=== PATIENT | male | born 1940 | race Hispanic/Latino ===

== ENCOUNTER 2019-12-26 13:14 | Inpatient (IN) | payer MEDICARE ==
[~2019-12-26] VITALS: Ht 170.2 cm; Wt 60.0 kg
[2019-12-26] MEDS ORDERED: SODIUM CHLORIDE 0.9% 1000ML 1,000 ML IV STA (13:30)
[2019-12-26 14:03] LABS: BASOPHILS # (AUTO) 0.1 (0.0-0.1); BASOPHILS % 0.4 % (0.0-1.0); EOSINOPHILS % 0.1 % (0.0-6.0); HEMATOCRIT 22.1 % (38.2-49.6); LYMPHOCYTES # (AUTO) 1.5 (1.0-3.2); LYMPHOCYTES % 7.2 % (18.0-39.1); MEAN CORPUSCULAR HEMOGLOBIN 28.3 pg (28-32); MEAN CORPUSCULAR HGB CONC 30.3 g/dL (31-35); MEAN CORPUSCULAR VOLUME 93.2 fL (81-99); MONOCYTES # (AUTO) 0.9 (0.2-0.8); MONOCYTES % 4.3 % (4.4-11.3); NEUTROPHILS # (AUTO) 17.6 (2.1-6.9); NEUTROPHILS % 86.9 % (38.7-80.0); PLATELET COUNT 312 x10e3/uL (140-360); RED BLOOD COUNT 2.37 x10e6/uL (4.3-5.7); RED CELL DISTRIBUTION WIDTH 14.8 % (11.7-14.4)
[2019-12-26 14:18] LABS: INR 1.12
[2019-12-26 14:19] LABS: PARTIAL THROMBOPLASTIN TIME 39.4 seconds (23.8-35.5)
[2019-12-26 14:23] LABS: HEMOGLOBIN 6.7 g/dL (14.0-18.0)
[2019-12-26 14:24] LABS: BILIRUBIN,URINE NEGATIVE (NEGATIVE); CLARITY,URINE SL CLOUDY (CLEAR); COLOR,URINE YELLOW (YELLOW); KETONES,URINE NEGATIVE (NEGATIVE); LEUKOCYTE ESTERASE ,URINE MODERATE (NEGATIVE); NITRITE,URINE NEGATIVE (NEGATIVE); PROTEIN,URINE DIPSTICK 1+ (NEGATIVE); URINE UROBILINOGEN 0.2 mg/dL (0.2 - 1)
[2019-12-26 14:27] LABS: ALBUMIN 3.3 g/dL (3.5-5.0); ALBUMIN/GLOBULIN RATIO 0.9 (0.8-2.0); ANION GAP 18.4 mmol/L (8-16); CALCIUM 8.5 mg/dL (8.4-10.2); CREATININE, SERUM 1.47 mg/dL (0.72-1.25); MAGNESIUM 1.7 MG/DL (1.3-2.1); POTASSIUM 4.4 mmol/L (3.5-5.1)
[2019-12-26 14:33] LABS: CREATINE KINASE MB 0.4 ng/mL (0-5.0)
--- NOTE | 2019-12-26 14:34 | Diagnostic Imaging Report ---
TECHNIQUE: Frontal view of the chest. INDICATION: ^AMS ^[id number] ^[id number] COMPARISON: None DISCUSSION: Limited evaluation due to portable technique. Lines and hardware: Midline sternotomy changes are noted. Overlying EKG leads are noted. Heart and mediastinum: Cardiomediastinal silhouette and pulmonary vascularity are within normal limits. Lungs and pleura: Linear opacities are noted at the left lung base suggestive of atelectasis. Negative for focal lobar consolidation. Negative for large effusion or pneumothorax. Soft tissues and bones: No acute abnormality. Postsurgical changes from right rotator cuff tear repair are noted. IMPRESSION: Linear opacities at the left lung base probably relate to atelectasis. Developing infection/consolidation considered less likely. Otherwise lungs are grossly clear. Signed by: Sam Harrison MD on 12/26/2019 2:30 PM
[2019-12-26 14:35] LABS: BACTERIA,URINE MANY /HPF; EPITHELIAL CELLS,URINE FEW /LPF; RBC,URINE 0-5 /HPF (0-5); YEAST,URINE MODERATE
[2019-12-26 14:41] LABS: B-TYPE NATRIURETIC PEPTIDE2 60.8 pg/mL (0-100)
--- OUTSIDE RECORDS SUMMARY | 2019-12-26 14:45 | XMS REPORT | Continuity of Care Document ---
Author Author [facility] Organization [facility] Address [address] [place] [address] Phone Unavailable Care Team Providers Care Citrus Peeler Name Role Phone MADDIE Devante LIOR Attphys Unavailable Payers Payer Name Policy Type Policy Number Effective Date Expiration Date S ource Problems This patient has no known problems. Allergies, Adverse Reactions, Alerts Allergy Name Allergy Type Status Severity Reaction(s) Onset Date Inacti ve Date Treating Clinician Comments Source morphine DA Active U 2019-11-14 00:00:00 [facility] morphine DA Active U 2019-05-23 00:00:00 [facility] morphine DA Active U 2019-03-03 00:00:00 [facility] morphine DA Active U 2018-12-06 00:00:00 [facility] morphine DA Active U 2018-07-22 00:00:00 [facility] No Known Allergies DA Active U 2018-06-22 00:00:00 [facility] Medications This patient has no known medications. Procedures This patient has no known procedures. Results Test Description Test Time Test Comments Results Result Comments Source CHEST SINGLE (PORTABLE) 2019-12-26 14:29:00 [facility] [address] [place], [place] [address] Patient Name: XOCHILT EPSTEIN MR #: [id number] : 1940 Age/Sex: 79/M Req #: [id number] [facility] Physician: Ordered by: LIOR PERKINS MD Report #: [id number] Location: ER Room/Bed: Procedure: [id number] DX/CHEST SINGLE (PORTABLE) Exam Date: 12/26/19 Exam Time: 1400 REPORT STATUS: Signed TECHNIQUE: Frontal view of the chest. INDICATION: AMS [id number] COMPARISON: None DISCUSSION: Limited evaluation due to portable technique. Lines and hardware: Midline sternotomy changes are noted. Overlying EKG leads are noted. Heart and mediastinum: Cardiomediastinal silhouette and pulmonary vascularity are within normal limits. Lungs and pleura: Linear opacities are noted at the left lung base suggestive of atelectasis. Negative for focal lobar consolidation. Negative for large effusion or pneumothorax. Soft tissues and bones: No acute abnormality. Postsurgical changes from right rotator cuff tear repair are noted. IMPRESSION: Linear opacities at the left lung base probably relate to atelectasis. Developing infection/consolidation considered less likely. Otherwise lungs are grossly clear. Signed by: Sam Gustafson MD on 12/26/2019 2:30 PM Dictated By: SAM GUSTAFSON MD 143 Transcribed By: ANTONIO on 12/26/19 1430 COPY TO: LIOR PERKINS MD GLUBED 2019-11-20 20:37:00 Test Item GLUBED (test code = GLUBED) 251 mg/dL 74-106 H Performed by certified photogravure press operator at [facility] [id number] 16:52:00* Test Item Value Reference Range Interpretation Comments GLUBED (test code = GLUBED) 218 mg/dL 74-106 H Performed by certified photogravure press operator at [facility] [id number] 12:39:00* Test Item Value Reference Range Interpretation Comments GLUBED (test code = GLUBED) 174 mg/dL 74-106 H Performed by certified photogravure press operator at [facility] [id number] 10:03:00* Test Item Value Reference Range Interpretation Comments GLUBED (test code = GLUBED) 146 mg/dL 74-106 H Performed by certified photogravure press operator at [facility] [id number] 20:58:00* Test Item Value Reference Range Interpretation Comments GLUBED (test code = GLUBED) 168 mg/dL 74-106 H Performed by certified photogravure press operator at [facility] [id number] 17:08:00* Test Item Value Reference Range Interpretation Comments GLUBED (test code = GLUBED) 162 mg/dL 74-106 H Performed by certified photogravure press operator at [facility] [id number] 12:23:00* Test Item Value Reference Range Interpretation Comments GLUBED (test code = GLUBED) 192 mg/dL 74-106 H Performed by certified photogravure press operator at [facility] [id number] 08:39:00* Test Item Value Reference Range Interpretation Comments GLUBED (test code = GLUBED) 139 mg/dL 74-106 H Performed by certified photogravure press operator at [facility] [id number] 21:12:00* Test Item Value Reference Range Interpretation Comments GLUBED (test code = GLUBED) 256 mg/dL 74-106 H Performed by certified photogravure press operator at [facility] CHST [id number] 19:31:00 Name: XOCHILT EPSTEIN [facility] : 1940 Age/S: 78 / M [address] [facility] Unit #: [id number] Loc: [place], [place] [address] Phys: Carrie Ballard MD Acct: [id number] Dis Date: Status: ADM IN PHONE #: [phone] Exam Date: 11/18/2019 1700 FAX #: [phone] Reason: right effusion EXAMS: CPT CODE: [id number] CHST W/MEDIASTINUM 60165 EXAM: Ultrasound of the chest; INFORMATION: Covid positive; pleural effusion? IMPRESSION: No evidence of pleural effusions. Location code: [facility] at 193 Reported and signed by: Guille Liao M.D. CC: Miquel Jeffers MD; Faustino Ramirez; Carrie Ballard MD Technologist: JENNIFER GILL RT(R),RDAL [facility] [place] Date/Time: 11/18/2019 (1930) [email or web address] Orig Print D/T: S: 11/19/2019 (1316) Probe: PAGE 1 Signed Report [id number] 15:59:00* Test Item Value Reference Range Interpretation Comments GLUBED (test code = GLUBED) 232 mg/dL 74-106 H Performed by certified photogravure press operator at [facility] [id number] 12:11:00* Test Item Value Reference Range Interpretation Comments GLUBED (test code = GLUBED) 176 mg/dL 74-106 H Performed by certified photogravure press operator at [facility] [id number] 08:18:00* Test Item Value Reference Range Interpretation Comments GLUBED (test code = GLUBED) 142 mg/dL 74-106 H Performed by certified photogravure press operator at [facility] - XR CHEST 1 [id number] 08:15:00 FAX: Miquel Jeffers MD [phone] [place]: St: ADM FAX: Faustino Phelan DO [phone] FAX: Carrie Adams MD [phone] Name: XOCHILT EPSTEIN [facility] : 1940 Age/S: 78/M [address] [facility] Unit #: [id number] Loc: [address] [place] [address] Phys: Carrie Ballard MD Acct: [id number] Dis Date: Status: ADM IN ONE #: [phone] Exam Date: 11/18/2019 0758 FAX #: [phone] Reason: COVID EXAMS: CPT CODE: [id number] XR CHEST 1 V [id number] REASON FOR EXAM: COVID Exam Order Date: 11/18/2019 8:00 AM Ordering M.D.: Carrie Ballard MD PROCEDURE: - XR CHEST 1 V COMPARISON: Chest x-ray November 14, 2019 FINDINGS: Op acities in the mid to lower lung zones bilaterally appear similar to the p revious examination and may represent any combination of atelectatic mccord es and pneumonia. Additionally a layering right sided pleural effusion can not be excluded. Cardiac mediastinal silhouette is normal in size. Sternotomy wires are unchanged in position. Prior cholecystectomy. IMPRESSION: No change from prior exam. Location: [facility] at 0815 Reported and signed by: Anupam Beltran MD CC: Miquel Jeffers MD; Faustino Ramirez; Carrie Ballard MD Technologist: WILDA WILLIAM JR RT(R) Trnscrd Date/Time/By: (814) : By: [email or web address] [facility] Print D/T: S: 11/18/2019 (927) PAGE 1 Signed Report CBC W/MANUAL [id number] 07:23:00* Test Item Value Reference Range Interpretation Comments WHITE BLOOD CELL (test code = WBC) 9.4 K/mm3 4.5-12.5 N RED BLOOD CELL (test code = RBC) 2.99 mill/mm3 4.0-5.8 L HEMOGLOBIN (test code = HGB) 8.7 gram/dL 13.0-17.5 L HEMATOCRIT (test code = HCT) 27.5 % 42.0-52.0 L MEAN CELL VOLUME (test code = MCV) 92.0 fL 80-98 N MEAN CELL HGB (test code = MCH) 29.1 picogram 27.0-33.0 N MEAN CELL HGB CONCETRATION (test code = MCHC) 31.6 gram/dL 33.0-36. 0 L RED CELL DISTRIBUTION WIDTH (test code = RDW) 12.7 % 11.6-16. 2 N RED CELL DISTRIBUTION WIDTH SD (test code = RDW-SD) 43.1 fL 37 .0-51.0 N PLATELET COUNT (test code = PLT) 336 K/mm3 150-450 N MEAN PLATELET VOLUME (test code = MPV) 10.0 fL 6.7-11.0 N IMMATURE GRANULOCYTE % (test code = IG%) 5.4 % 0.0-5.0 H "The appearance of immature granulocytes (myelocytes,pro-myelocytes, meta-myelocytes) in the peripheral blood ofnon- individuals can indicate a response toinfection, inflammation, or other stimulus to the bonemarrow" NUCLEATED RBC % (test code = NRBC%) 0.0 % 0-0 N NEUTROPHIL # (test code = NT#) 8.04 K/mm3 1.8-7.7 H IMMATURE GRANULOCYTE # (test code = IG#) 0.51 x10 3/uL 0-0.03 H LYMPHOCYTE # (test code = LY#) 0.46 K/mm3 1.0-5.0 L MONOCYTE # (test code = MO#) 0.31 K/mm3 0-0.8 N EOSINOPHIL # (test code = EO#) 0.02 K/mm3 0.0-0.5 N BASOPHIL # (test code = BA#) 0.03 K/mm3 0.0-0.2 N NUCLEATED RBC # (test code = NRBC#) 0.00 K/mm3 0.0-0.1 N MANUAL DIFF REQUIRED (test code = MDIFF) YES STAIN ACCEPTABILITY (test code = STN ACCEPTABLE) STAIN ACCEPTABLE TOTAL CELLS COUNTED (test code = TCC) 115 #CELLS SEGMENTED NEUTROPHILS (test code = SEG) 91.3 % 39-69 H BAND NEUTROPHIL (test code = BAND) 0 % 0-10 N LYMPHOCYTE (test code = LYMPH) 5.2 % 25-55 L REACTIVE LYMPH (test code = RELYMPH) 0 % MONOCYTE (test code = MON) 3.5 % 0-10 N EOSINOPHIL (test code = EOS) 0 % 0.0-5.0 N BASOPHIL (test code = BASO) 0 % 0-1.0 N METAMYELOCYTE (test code = META) 0 % 0-0 N MYELOCYTE (test code = MYELO) 0 % 0.0-0.0 N PROMYELOCYTE (test code = PROM) 0 % 0-0 N POLYCHROMASIA (test code = POLC) 1+ POIKILOCYTOSIS (test code = POIK) 3+ ANISOCYTOSIS (test code = ANISO) 1+ MACROCYTOSIS (test code = MACR) 1+ ELLIPTOCYTES (test code = ELL) 1+ JOSELIN CELLS (test code = JOSELIN) 2+ NONE PLATELET ESTIMATE (test code = PLTEST) ADEQUATE PLATELET MORPHOLOGY (test code = PLTMORPH) NORMAL IMMATURE FORMS (test code = IMMAT) 0 % 0-0 N COMPREHENSIVE METABOLIC [id number] 07:09:00* Test Item Value Reference Range Interpretation Comments SODIUM (test code = NA) 142 mmol/L 136-145 N POTASSIUM (test code = K) 4.6 mmol/L 3.5-5.1 N CHLORIDE (test code = CL) 114.0 mmol/L 98-107 H CARBON DIOXIDE (test code = CO2) 23.0 mmol/L 21-32 N ANION GAP (test code = GAP) 9.6 10-20 L GLUCOSE (test code = GLU) 158 mg/dL 74-106 H BLOOD UREA NITROGEN (test code = BUN) 20 mg/dL 7-18 H GLOMERULAR FILTRATION RATE (test code = GFR) > 60 mL/min >=60 Estimated GFR by using Modified MDRD formula.Chronic kidney disease is defined as either kidney damageor GFR <60 mL/min/1.73 m2 for >3 months. CREATININE (test code = CREAT) 0.80 mg/dL 0.7-1.3 N BUN/CREATININE RATIO (test code = BUN/CREA) 25.7 10-20 H TOTAL PROTEIN (test code = PROT) 5.9 gram/dL 6.4-8.2 L ALBUMIN (test code = ALB) 2.1 g/dL 3.4-5.0 L GLOBULIN (test code = GLOB) 3.8 gram/dL 2.7-4.2 N ALBUMIN/GLOBULIN RATIO (test code = A/G) 0.6 0.75-1.50 L CALCIUM (test code = CA) 7.7 mg/dL 8.5-10.1 L BILIRUBIN TOTAL (test code = BILT) 0.30 mg/dL 0.0-1.0 N SGOT/AST (test code = AST) 24 IUnit/L 15-37 N SGPT/ALT (test code = ALT) 15 IUnit/L 12-78 N ALKALINE PHOSPHATASE TOTAL (test code = ALKP) 58 IUnit/L 45-117 N Note change in reference range due to change in reagent. CBC W/MANUAL [id number] 07:01:00* Test Item Value Reference Range Interpretation Comments WHITE BLOOD CELL (test code = WBC) 9.4 K/mm3 4.5-12.5 N RED BLOOD CELL (test code = RBC) 2.99 mill/mm3 4.0-5.8 L HEMOGLOBIN (test code = HGB) 8.7 gram/dL 13.0-17.5 L HEMATOCRIT (test code = HCT) 27.5 % 42.0-52.0 L MEAN CELL VOLUME (test code = MCV) 92.0 fL 80-98 N MEAN CELL HGB (test code = MCH) 29.1 picogram 27.0-33.0 N MEAN CELL HGB CONCETRATION (test code = MCHC) 31.6 gram/dL 33.0-36. 0 L RED CELL DISTRIBUTION WIDTH (test code = RDW) 12.7 % 11.6-16. 2 N RED CELL DISTRIBUTION WIDTH SD (test code = RDW-SD) 43.1 fL 37 .0-51.0 N PLATELET COUNT (test code = PLT) 336 K/mm3 150-450 N MEAN PLATELET VOLUME (test code = MPV) 10.0 fL 6.7-11.0 N IMMATURE GRANULOCYTE % (test code = IG%) 5.4 % 0.0-5.0 H "The appearance of immature granulocytes (myelocytes,pro-myelocytes, meta-myelocytes) in the peripheral blood ofnon- individuals can indicate a response toinfection, inflammation, or other stimulus to the bonemarrow" NUCLEATED RBC % (test code = NRBC%) 0.0 % 0-0 N NEUTROPHIL # (test code = NT#) 8.04 K/mm3 1.8-7.7 H IMMATURE GRANULOCYTE # (test code = IG#) 0.51 x10 3/uL 0-0.03 H LYMPHOCYTE # (test code = LY#) 0.46 K/mm3 1.0-5.0 L MONOCYTE # (test code = MO#) 0.31 K/mm3 0-0.8 N EOSINOPHIL # (test code = EO#) 0.02 K/mm3 0.0-0.5 N BASOPHIL # (test code = BA#) 0.03 K/mm3 0.0-0.2 N NUCLEATED RBC # (test code = NRBC#) 0.00 K/mm3 0.0-0.1 N MANUAL DIFF REQUIRED (test code = MDIFF) YES STAIN ACCEPTABILITY (test code = STN ACCEPTABLE) TOTAL CELLS COUNTED (test code = TCC) #CELLS SEGMENTED NEUTROPHILS (test code = SEG) % 39-69 LYMPHOCYTE (test code = LYMPH) % 25-55 MONOCYTE (test code = MON) % 0-10 EOSINOPHIL (test code = EOS) % 0.0-5.0 CABOT RINGS (test code = CAB) MORPHOLOGY COMMENT (test code = MOC) PLATELET ESTIMATE (test code = PLTEST) PLATELET MORPHOLOGY (test code = PLTMORPH) CBC W/MANUAL [id number] 07:01:00* Test Item Value Reference Range Interpretation Comments WHITE BLOOD CELL (test code = WBC) 9.4 K/mm3 4.5-12.5 N RED BLOOD CELL (test code = RBC) 2.99 mill/mm3 4.0-5.8 L HEMOGLOBIN (test code = HGB) 8.7 gram/dL 13.0-17.5 L HEMATOCRIT (test code = HCT) 27.5 % 42.0-52.0 L MEAN CELL VOLUME (test code = MCV) 92.0 fL 80-98 N MEAN CELL HGB (test code = MCH) 29.1 picogram 27.0-33.0 N MEAN CELL HGB CONCETRATION (test code = MCHC) 31.6 gram/dL 33.0-36. 0 L RED CELL DISTRIBUTION WIDTH (test code = RDW) 12.7 % 11.6-16. 2 N RED CELL DISTRIBUTION WIDTH SD (test code = RDW-SD) 43.1 fL 37 .0-51.0 N PLATELET COUNT (test code = PLT) 336 K/mm3 150-450 N MEAN PLATELET VOLUME (test code = MPV) 10.0 fL 6.7-11.0 N IMMATURE GRANULOCYTE % (test code = IG%) 5.4 % 0.0-5.0 H "The appearance of immature granulocytes (myelocytes,pro-myelocytes, meta-myelocytes) in the peripheral blood ofnon- individuals can indicate a response toinfection, inflammation, or other stimulus to the bonemarrow" NUCLEATED RBC % (test code = NRBC%) 0.0 % 0-0 N NEUTROPHIL # (test code = NT#) 8.04 K/mm3 1.8-7.7 H IMMATURE GRANULOCYTE # (test code = IG#) 0.51 x10 3/uL 0-0.03 H LYMPHOCYTE # (test code = LY#) 0.46 K/mm3 1.0-5.0 L MONOCYTE # (test code = MO#) 0.31 K/mm3 0-0.8 N EOSINOPHIL # (test code = EO#) 0.02 K/mm3 0.0-0.5 N BASOPHIL # (test code = BA#) 0.03 K/mm3 0.0-0.2 N NUCLEATED RBC # (test code = NRBC#) 0.00 K/mm3 0.0-0.1 N MANUAL DIFF REQUIRED (test code = MDIFF) YES STAIN ACCEPTABILITY (test code = STN ACCEPTABLE) TOTAL CELLS COUNTED (test code = TCC) #CELLS SEGMENTED NEUTROPHILS (test code = SEG) % 39-69 LYMPHOCYTE (test code = LYMPH) % 25-55 MONOCYTE (test code = MON) % 0-10 EOSINOPHIL (test code = EOS) % 0.0-5.0 CABOT RINGS (test code = CAB) MORPHOLOGY COMMENT (test code = MOC) PLATELET ESTIMATE (test code = PLTEST) PLATELET MORPHOLOGY (test code = PLTMORPH) CBC W/MANUAL [id number] 07:01:00* Test Item Value Reference Range Interpretation Comments WHITE BLOOD CELL (test code = WBC) 9.4 K/mm3 4.5-12.5 N RED BLOOD CELL (test code = RBC) 2.99 mill/mm3 4.0-5.8 L HEMOGLOBIN (test code = HGB) 8.7 gram/dL 13.0-17.5 L HEMATOCRIT (test code = HCT) 27.5 % 42.0-52.0 L MEAN CELL VOLUME (test code = MCV) 92.0 fL 80-98 N MEAN CELL HGB (test code = MCH) 29.1 picogram 27.0-33.0 N MEAN CELL HGB CONCETRATION (test code = MCHC) 31.6 gram/dL 33.0-36. 0 L RED CELL DISTRIBUTION WIDTH (test code = RDW) 12.7 % 11.6-16. 2 N RED CELL DISTRIBUTION WIDTH SD (test code = RDW-SD) 43.1 fL 37 .0-51.0 N PLATELET COUNT (test code = PLT) 336 K/mm3 150-450 N MEAN PLATELET VOLUME (test code = MPV) 10.0 fL 6.7-11.0 N IMMATURE GRANULOCYTE % (test code = IG%) 5.4 % 0.0-5.0 H "The appearance of immature granulocytes (myelocytes,pro-myelocytes, meta-myelocytes) in the peripheral blood ofnon- individuals can indicate a response toinfection, inflammation, or other stimulus to the bonemarrow" NUCLEATED RBC % (test code = NRBC%) 0.0 % 0-0 N NEUTROPHIL # (test code = NT#) 8.04 K/mm3 1.8-7.7 H IMMATURE GRANULOCYTE # (test code = IG#) 0.51 x10 3/uL 0-0.03 H LYMPHOCYTE # (test code = LY#) 0.46 K/mm3 1.0-5.0 L MONOCYTE # (test code = MO#) 0.31 K/mm3 0-0.8 N EOSINOPHIL # (test code = EO#) 0.02 K/mm3 0.0-0.5 N BASOPHIL # (test code = BA#) 0.03 K/mm3 0.0-0.2 N NUCLEATED RBC # (test code = NRBC#) 0.00 K/mm3 0.0-0.1 N MANUAL DIFF REQUIRED (test code = MDIFF) YES STAIN ACCEPTABILITY (test code = STN ACCEPTABLE) TOTAL CELLS COUNTED (test code = TCC) #CELLS SEGMENTED NEUTROPHILS (test code = SEG) % 39-69 LYMPHOCYTE (test code = LYMPH) % 25-55 MONOCYTE (test code = MON) % 0-10 EOSINOPHIL (test code = EOS) % 0.0-5.0 MORPHOLOGY COMMENT (test code = MOC) PLATELET ESTIMATE (test code = PLTEST) PLATELET MORPHOLOGY (test code = PLTMORPH) CBC W/MANUAL [id number] 07:01:00* Test Item Value Reference Range Interpretation Comments WHITE BLOOD CELL (test code = WBC) 9.4 K/mm3 4.5-12.5 N RED BLOOD CELL (test code = RBC) 2.99 mill/mm3 4.0-5.8 L HEMOGLOBIN (test code = HGB) 8.7 gram/dL 13.0-17.5 L HEMATOCRIT (test code = HCT) 27.5 % 42.0-52.0 L MEAN CELL VOLUME (test code = MCV) 92.0 fL 80-98 N MEAN CELL HGB (test code = MCH) 29.1 picogram 27.0-33.0 N MEAN CELL HGB CONCETRATION (test code = MCHC) 31.6 gram/dL 33.0-36. 0 L RED CELL DISTRIBUTION WIDTH (test code = RDW) 12.7 % 11.6-16. 2 N RED CELL DISTRIBUTION WIDTH SD (test code = RDW-SD) 43.1 fL 37 .0-51.0 N PLATELET COUNT (test code = PLT) 336 K/mm3 150-450 N MEAN PLATELET VOLUME (test code = MPV) 10.0 fL 6.7-11.0 N IMMATURE GRANULOCYTE % (test code = IG%) 5.4 % 0.0-5.0 H "The appearance of immature granulocytes (myelocytes,pro-myelocytes, meta-myelocytes) in the peripheral blood ofnon- individuals can indicate a response toinfection, inflammation, or other stimulus to the bonemarrow" NUCLEATED RBC % (test code = NRBC%) 0.0 % 0-0 N NEUTROPHIL # (test code = NT#) 8.04 K/mm3 1.8-7.7 H IMMATURE GRANULOCYTE # (test code = IG#) 0.51 x10 3/uL 0-0.03 H LYMPHOCYTE # (test code = LY#) 0.46 K/mm3 1.0-5.0 L MONOCYTE # (test code = MO#) 0.31 K/mm3 0-0.8 N EOSINOPHIL # (test code = EO#) 0.02 K/mm3 0.0-0.5 N BASOPHIL # (test code = BA#) 0.03 K/mm3 0.0-0.2 N NUCLEATED RBC # (test code = NRBC#) 0.00 K/mm3 0.0-0.1 N MANUAL DIFF REQUIRED (test code = MDIFF) YES STAIN ACCEPTABILITY (test code = STN ACCEPTABLE) TOTAL CELLS COUNTED (test code = TCC) #CELLS SEGMENTED NEUTROPHILS (test code = SEG) % 39-69 LYMPHOCYTE (test code = LYMPH) % 25-55 MONOCYTE (test code = MON) % 0-10 MORPHOLOGY COMMENT (test code = MOC) PLATELET ESTIMATE (test code = PLTEST) PLATELET MORPHOLOGY (test code = PLTMORPH) CBC W/MANUAL [id number] 07:01:00* Test Item Value Reference Range Interpretation Comments WHITE BLOOD CELL (test code = WBC) 9.4 K/mm3 4.5-12.5 N RED BLOOD CELL (test code = RBC) 2.99 mill/mm3 4.0-5.8 L HEMOGLOBIN (test code = HGB) 8.7 gram/dL 13.0-17.5 L HEMATOCRIT (test code = HCT) 27.5 % 42.0-52.0 L MEAN CELL VOLUME (test code = MCV) 92.0 fL 80-98 N MEAN CELL HGB (test code = MCH) 29.1 picogram 27.0-33.0 N MEAN CELL HGB CONCETRATION (test code = MCHC) 31.6 gram/dL 33.0-36. 0 L RED CELL DISTRIBUTION WIDTH (test code = RDW) 12.7 % 11.6-16. 2 N RED CELL DISTRIBUTION WIDTH SD (test code = RDW-SD) 43.1 fL 37 .0-51.0 N PLATELET COUNT (test code = PLT) 336 K/mm3 150-450 N MEAN PLATELET VOLUME (test code = MPV) 10.0 fL 6.7-11.0 N IMMATURE GRANULOCYTE % (test code = IG%) 5.4 % 0.0-5.0 H "The appearance of immature granulocytes (myelocytes,pro-myelocytes, meta-myelocytes) in the peripheral blood ofnon- individuals can indicate a response toinfection, inflammation, or other stimulus to the bonemarrow" NUCLEATED RBC % (test code = NRBC%) 0.0 % 0-0 N NEUTROPHIL # (test code = NT#) 8.04 K/mm3 1.8-7.7 H IMMATURE GRANULOCYTE # (test code = IG#) 0.51 x10 3/uL 0-0.03 H LYMPHOCYTE # (test code = LY#) 0.46 K/mm3 1.0-5.0 L MONOCYTE # (test code = MO#) 0.31 K/mm3 0-0.8 N EOSINOPHIL # (test code = EO#) 0.02 K/mm3 0.0-0.5 N BASOPHIL # (test code = BA#) 0.03 K/mm3 0.0-0.2 N NUCLEATED RBC # (test code = NRBC#) 0.00 K/mm3 0.0-0.1 N MANUAL DIFF REQUIRED (test code = MDIFF) YES STAIN ACCEPTABILITY (test code = STN ACCEPTABLE) TOTAL CELLS COUNTED (test code = TCC) #CELLS SEGMENTED NEUTROPHILS (test code = SEG) % 39-69 LYMPHOCYTE (test code = LYMPH) % 25-55 MONOCYTE (test code = MON) % 0-10 EOSINOPHIL (test code = EOS) % 0.0-5.0 CABOT RINGS (test code = CAB) MORPHOLOGY COMMENT (test code = MOC) PLATELET ESTIMATE (test code = PLTEST) PLATELET MORPHOLOGY (test code = PLTMORPH) COMPREHENSIVE METABOLIC [id number] 06:58:00* Test Item Value Reference Range Interpretation Comments SODIUM (test code = NA) 142 mmol/L 136-145 N POTASSIUM (test code = K) 4.6 mmol/L 3.5-5.1 N CHLORIDE (test code = CL) 114.0 mmol/L 98-107 H CARBON DIOXIDE (test code = CO2) mmol/L 21-32 ANION GAP (test code = GAP) 10-20 GLUCOSE (test code = GLU) mg/dL 74-106 BLOOD UREA NITROGEN (test code = BUN) mg/dL 7-18 GLOMERULAR FILTRATION RATE (test code = GFR) mL/min >=60 CREATININE (test code = CREAT) mg/dL 0.7-1.3 BUN/CREATININE RATIO (test code = BUN/CREA) 10-20 TOTAL PROTEIN (test code = PROT) gram/dL 6.4-8.2 ALBUMIN (test code = ALB) g/dL 3.4-5.0 GLOBULIN (test code = GLOB) gram/dL 2.7-4.2 ALBUMIN/GLOBULIN RATIO (test code = A/G) 0.75-1.50 CALCIUM (test code = CA) mg/dL 8.5-10.1 BILIRUBIN TOTAL (test code = BILT) mg/dL 0.0-1.0 SGOT/AST (test code = AST) IUnit/L 15-37 SGPT/ALT (test code = ALT) IUnit/L 12-78 ALKALINE PHOSPHATASE TOTAL (test code = ALKP) IUnit/L 45-117 [id number] 21:31:00* Test Item Value Reference Range Interpretation Comments GLUBED (test code = GLUBED) 211 mg/dL 74-106 H Performed by certified photogravure press operator at [facility] [id number] 17:07:00* Test Item Value Reference Range Interpretation Comments GLUBED (test code = GLUBED) 212 mg/dL 74-106 H Performed by certified photogravure press operator at [facility] [id number] 11:06:00* Test Item Value Reference Range Interpretation Comments GLUBED (test code = GLUBED) 161 mg/dL 74-106 H Performed by certified photogravure press operator at [facility] [id number] 08:12:00* Test Item Value Reference Range Interpretation Comments GLUBED (test code = GLUBED) 180 mg/dL 74-106 H Performed by certified photogravure press operator at [facility] COMPREHENSIVE METABOLIC [id number] 05:29:00* Test Item Value Reference Range Interpretation Comments SODIUM (test code = NA) 141 mmol/L 136-145 N POTASSIUM (test code = K) 3.4 mmol/L 3.5-5.1 L CHLORIDE (test code = CL) 108.0 mmol/L 98-107 H CARBON DIOXIDE (test code = CO2) 26.0 mmol/L 21-32 N ANION GAP (test code = GAP) 10.4 10-20 N GLUCOSE (test code = GLU) 223 mg/dL 74-106 H BLOOD UREA NITROGEN (test code = BUN) 21 mg/dL 7-18 H GLOMERULAR FILTRATION RATE (test code = GFR) > 60 mL/min >=60 Estimated GFR by using Modified MDRD formula.Chronic kidney disease is defined as either kidney damageor GFR <60 mL/min/1.73 m2 for >3 months. CREATININE (test code = CREAT) 0.80 mg/dL 0.7-1.3 N BUN/CREATININE RATIO (test code = BUN/CREA) 26.6 10-20 H TOTAL PROTEIN (test code = PROT) 6.6 gram/dL 6.4-8.2 N ALBUMIN (test code = ALB) 2.2 g/dL 3.4-5.0 L GLOBULIN (test code = GLOB) 4.4 gram/dL 2.7-4.2 H ALBUMIN/GLOBULIN RATIO (test code = A/G) 0.5 0.75-1.50 L CALCIUM (test code = CA) 8.1 mg/dL 8.5-10.1 L BILIRUBIN TOTAL (test code = BILT) 0.20 mg/dL 0.0-1.0 N SGOT/AST (test code = AST) 19 IUnit/L 15-37 N SGPT/ALT (test code = ALT) 22 IUnit/L 12-78 N ALKALINE PHOSPHATASE TOTAL (test code = ALKP) 60 IUnit/L 45-117 N Note change in reference range due to change in reagent. COMPREHENSIVE METABOLIC [id number] 05:11:00* Test Item Value Reference Range Interpretation Comments SODIUM (test code = NA) 141 mmol/L 136-145 N POTASSIUM (test code = K) 3.4 mmol/L 3.5-5.1 L CHLORIDE (test code = CL) 108.0 mmol/L 98-107 H CARBON DIOXIDE (test code = CO2) mmol/L 21-32 ANION GAP (test code = GAP) 10-20 GLUCOSE (test code = GLU) mg/dL 74-106 BLOOD UREA NITROGEN (test code = BUN) mg/dL 7-18 GLOMERULAR FILTRATION RATE (test code = GFR) mL/min >=60 CREATININE (test code = CREAT) mg/dL 0.7-1.3 BUN/CREATININE RATIO (test code = BUN/CREA) 10-20 TOTAL PROTEIN (test code = PROT) gram/dL 6.4-8.2 ALBUMIN (test code = ALB) g/dL 3.4-5.0 GLOBULIN (test code = GLOB) gram/dL 2.7-4.2 ALBUMIN/GLOBULIN RATIO (test code = A/G) 0.75-1.50 CALCIUM (test code = CA) mg/dL 8.5-10.1 BILIRUBIN TOTAL (test code = BILT) mg/dL 0.0-1.0 SGOT/AST (test code = AST) IUnit/L 15-37 SGPT/ALT (test code = ALT) IUnit/L 12-78 ALKALINE PHOSPHATASE TOTAL (test code = ALKP) IUnit/L 45-117 CBC W/AUTO [id number] 04:54:00* Test Item Value Reference Range Interpretation Comments WHITE BLOOD CELL (test code = WBC) 9.6 K/mm3 4.5-12.5 N RED BLOOD CELL (test code = RBC) 3.12 mill/mm3 4.0-5.8 L HEMOGLOBIN (test code = HGB) 9.0 gram/dL 13.0-17.5 L HEMATOCRIT (test code = HCT) 27.8 % 42.0-52.0 L MEAN CELL VOLUME (test code = MCV) 89.1 fL 80-98 N MEAN CELL HGB (test code = MCH) 28.8 picogram 27.0-33.0 N MEAN CELL HGB CONCETRATION (test code = MCHC) 32.4 gram/dL 33.0-36. 0 L RED CELL DISTRIBUTION WIDTH (test code = RDW) 12.6 % 11.6-16. 2 N RED CELL DISTRIBUTION WIDTH SD (test code = RDW-SD) 40.5 fL 37 .0-51.0 N PLATELET COUNT (test code = PLT) 362 K/mm3 150-450 N MEAN PLATELET VOLUME (test code = MPV) 9.8 fL 6.7-11.0 N NEUTROPHIL % (test code = NT%) 87.1 % 39.0-69.0 H IMMATURE GRANULOCYTE % (test code = IG%) 2.9 % 0.0-5.0 N LYMPHOCYTE % (test code = LY%) 6.1 % 25.0-55.0 L MONOCYTE % (test code = MO%) 3.7 % 0.0-10.0 N EOSINOPHIL % (test code = EO%) 0.0 % 0.0-5.0 N BASOPHIL % (test code = BA%) 0.2 % 0.0-1.0 N NUCLEATED RBC % (test code = NRBC%) 0.0 % 0-0 N NEUTROPHIL # (test code = NT#) 8.35 K/mm3 1.8-7.7 H IMMATURE GRANULOCYTE # (test code = IG#) 0.28 x10 3/uL 0-0.03 H LYMPHOCYTE # (test code = LY#) 0.58 K/mm3 1.0-5.0 L MONOCYTE # (test code = MO#) 0.35 K/mm3 0-0.8 N EOSINOPHIL # (test code = EO#) 0.00 K/mm3 0.0-0.5 N BASOPHIL # (test code = BA#) 0.02 K/mm3 0.0-0.2 N NUCLEATED RBC # (test code = NRBC#) 0.00 K/mm3 0.0-0.1 N MANUAL DIFF REQUIRED (test code = MDIFF) NO [id number] 20:33:00* Test Item Value Reference Range Interpretation Comments GLUBED (test code = GLUBED) 216 mg/dL 74-106 H Performed by certified photogravure press operator at [facility] [id number] 16:32:00* Test Item Value Reference Range Interpretation Comments GLUBED (test code = GLUBED) 233 mg/dL 74-106 H Performed by certified photogravure press operator at [facility] [id number] 11:45:00* Test Item Value Reference Range Interpretation Comments GLUBED (test code = GLUBED) 261 mg/dL 74-106 H Performed by certified photogravure press operator at [facility] CBC W/MANUAL [id number] 10:38:00* Test Item Value Reference Range Interpretation Comments WHITE BLOOD CELL (test code = WBC) 4.2 K/mm3 4.5-12.5 L RED BLOOD CELL (test code = RBC) 3.08 mill/mm3 4.0-5.8 L HEMOGLOBIN (test code = HGB) 9.0 gram/dL 13.0-17.5 L HEMATOCRIT (test code = HCT) 27.9 % 42.0-52.0 L MEAN CELL VOLUME (test code = MCV) 90.6 fL 80-98 N MEAN CELL HGB (test code = MCH) 29.2 picogram 27.0-33.0 N MEAN CELL HGB CONCETRATION (test code = MCHC) 32.3 gram/dL 33.0-36. 0 L RED CELL DISTRIBUTION WIDTH (test code = RDW) 12.7 % 11.6-16. 2 N RED CELL DISTRIBUTION WIDTH SD (test code = RDW-SD) 41.4 fL 37 .0-51.0 N PLATELET COUNT (test code = PLT) 336 K/mm3 150-450 N MEAN PLATELET VOLUME (test code = MPV) 9.6 fL 6.7-11.0 N IMMATURE GRANULOCYTE % (test code = IG%) 6.5 % 0.0-5.0 H "The appearance of immature granulocytes (myelocytes,pro-myelocytes, meta-myelocytes) in the peripheral blood ofnon- individuals can indicate a response toinfection, inflammation, or other stimulus to the bonemarrow" NUCLEATED RBC % (test code = NRBC%) 0.0 % 0-0 N NEUTROPHIL # (test code = NT#) 3.31 K/mm3 1.8-7.7 N IMMATURE GRANULOCYTE # (test code = IG#) 0.27 x10 3/uL 0-0.03 H LYMPHOCYTE # (test code = LY#) 0.41 K/mm3 1.0-5.0 L MONOCYTE # (test code = MO#) 0.18 K/mm3 0-0.8 N EOSINOPHIL # (test code = EO#) 0.00 K/mm3 0.0-0.5 N BASOPHIL # (test code = BA#) 0.01 K/mm3 0.0-0.2 N NUCLEATED RBC # (test code = NRBC#) 0.00 K/mm3 0.0-0.1 N MANUAL DIFF REQUIRED (test code = MDIFF) YES STAIN ACCEPTABILITY (test code = STN ACCEPTABLE) STAIN ACCEPTABLE TOTAL CELLS COUNTED (test code = TCC) 114 #CELLS SEGMENTED NEUTROPHILS (test code = SEG) 84.2 % 39-69 H BAND NEUTROPHIL (test code = BAND) 4.4 % 0-10 N LYMPHOCYTE (test code = LYMPH) 7.0 % 25-55 L REACTIVE LYMPH (test code = RELYMPH) 0 % MONOCYTE (test code = MON) 0.9 % 0-10 N EOSINOPHIL (test code = EOS) 0 % 0.0-5.0 N BASOPHIL (test code = BASO) 0 % 0-1.0 N METAMYELOCYTE (test code = META) 1.7 % 0-0 H MYELOCYTE (test code = MYELO) 0.9 % 0.0-0.0 H PROMYELOCYTE (test code = PROM) 0 % 0-0 N PLASMA CELL (test code = KALEB) 0.9 0.0-0.0 H POLYCHROMASIA (test code = POLC) 2+ HYPOCHROMIA (test code = HYPO) 1+ POIKILOCYTOSIS (test code = POIK) 2+ ANISOCYTOSIS (test code = ANISO) 1+ ELLIPTOCYTES (test code = ELL) 1+ CRENATED CELLS (test code = CREN) 2+ PLATELET ESTIMATE (test code = PLTEST) ADEQUATE PLATELET MORPHOLOGY (test code = PLTMORPH) NORMAL IMMATURE FORMS (test code = IMMAT) 0 % 0-0 N [id number] 08:48:00* Test Item Value Reference Range Interpretation Comments GLUBED (test code = GLUBED) 140 mg/dL 74-106 H Performed by certified photogravure press operator at [facility] COMPREHENSIVE METABOLIC [id number] 08:02:00* Test Item Value Reference Range Interpretation Comments SODIUM (test code = NA) 137 mmol/L 136-145 RESU LT VERIFIED BY REPEAT ANALYSIS POTASSIUM (test code = K) 3.6 mmol/L 3.5-5.1 N CHLORIDE (test code = CL) 106.0 mmol/L 98-107 N CARBON DIOXIDE (test code = CO2) 24.0 mmol/L 21-32 N ANION GAP (test code = GAP) 10.6 10-20 N GLUCOSE (test code = GLU) 180 mg/dL 74-106 H BLOOD UREA NITROGEN (test code = BUN) 23 mg/dL 7-18 H RESULT VERIFIED BY REPEAT ANALYSIS GLOMERULAR FILTRATION RATE (test code = GFR) > 60 mL/min >=60 Estimated GFR by using Modified MDRD formula.Chronic kidney disease is defined as either kidney damageor GFR <60 mL/min/1.73 m2 for >3 months. CREATININE (test code = CREAT) 0.70 mg/dL 0.7-1.3 N BUN/CREATININE RATIO (test code = BUN/CREA) 32.9 10-20 H TOTAL PROTEIN (test code = PROT) 6.8 gram/dL 6.4-8.2 N ALBUMIN (test code = ALB) 2.2 g/dL 3.4-5.0 L GLOBULIN (test code = GLOB) 4.6 gram/dL 2.7-4.2 H ALBUMIN/GLOBULIN RATIO (test code = A/G) 0.5 0.75-1.50 L CALCIUM (test code = CA) 8.2 mg/dL 8.5-10.1 L BILIRUBIN TOTAL (test code = BILT) 0.20 mg/dL 0.0-1.0 N SGOT/AST (test code = AST) 21 IUnit/L 15-37 N SGPT/ALT (test code = ALT) 17 IUnit/L 12-78 N ALKALINE PHOSPHATASE TOTAL (test code = ALKP) 67 IUnit/L 45-117 N Note change in reference range due to change in reagent. [id number] 08:02:00* Test Item Value Reference Range Interpretation Comments MAGNESIUM (test code = MAG) 2.0 mg/dL 1.8-2.4 N [id number] 07:41:00* Test Item Value Reference Range Interpretation Comments TROPONIN-I (test code = TROPI) <0.015 ng/mL 0-0.045 N CBC W/MANUAL [id number] 07:03:00* Test Item Value Reference Range Interpretation Comments WHITE BLOOD CELL (test code = WBC) 4.2 K/mm3 4.5-12.5 L RED BLOOD CELL (test code = RBC) 3.08 mill/mm3 4.0-5.8 L HEMOGLOBIN (test code = HGB) 9.0 gram/dL 13.0-17.5 L HEMATOCRIT (test code = HCT) 27.9 % 42.0-52.0 L MEAN CELL VOLUME (test code = MCV) 90.6 fL 80-98 N MEAN CELL HGB (test code = MCH) 29.2 picogram 27.0-33.0 N MEAN CELL HGB CONCETRATION (test code = MCHC) 32.3 gram/dL 33.0-36. 0 L RED CELL DISTRIBUTION WIDTH (test code = RDW) 12.7 % 11.6-16. 2 N RED CELL DISTRIBUTION WIDTH SD (test code = RDW-SD) 41.4 fL 37 .0-51.0 N PLATELET COUNT (test code = PLT) 336 K/mm3 150-450 N MEAN PLATELET VOLUME (test code = MPV) 9.6 fL 6.7-11.0 N IMMATURE GRANULOCYTE % (test code = IG%) 6.5 % 0.0-5.0 H "The appearance of immature granulocytes (myelocytes,pro-myelocytes, meta-myelocytes) in the peripheral blood ofnon- individuals can indicate a response toinfection, inflammation, or other stimulus to the bonemarrow" NUCLEATED RBC % (test code = NRBC%) 0.0 % 0-0 N NEUTROPHIL # (test code = NT#) 3.31 K/mm3 1.8-7.7 N IMMATURE GRANULOCYTE # (test code = IG#) 0.27 x10 3/uL 0-0.03 H LYMPHOCYTE # (test code = LY#) 0.41 K/mm3 1.0-5.0 L MONOCYTE # (test code = MO#) 0.18 K/mm3 0-0.8 N EOSINOPHIL # (test code = EO#) 0.00 K/mm3 0.0-0.5 N BASOPHIL # (test code = BA#) 0.01 K/mm3 0.0-0.2 N NUCLEATED RBC # (test code = NRBC#) 0.00 K/mm3 0.0-0.1 N MANUAL DIFF REQUIRED (test code = MDIFF) YES STAIN ACCEPTABILITY (test code = STN ACCEPTABLE) TOTAL CELLS COUNTED (test code = TCC) #CELLS SEGMENTED NEUTROPHILS (test code = SEG) % 39-69 LYMPHOCYTE (test code = LYMPH) % 25-55 MONOCYTE (test code = MON) % 0-10 EOSINOPHIL (test code = EOS) % 0.0-5.0 CABOT RINGS (test code = CAB) MORPHOLOGY COMMENT (test code = MOC) PLATELET ESTIMATE (test code = PLTEST) PLATELET MORPHOLOGY (test code = PLTMORPH) CBC W/MANUAL [id number] 07:03:00* Test Item Value Reference Range Interpretation Comments WHITE BLOOD CELL (test code = WBC) 4.2 K/mm3 4.5-12.5 L RED BLOOD CELL (test code = RBC) 3.08 mill/mm3 4.0-5.8 L HEMOGLOBIN (test code = HGB) 9.0 gram/dL 13.0-17.5 L HEMATOCRIT (test code = HCT) 27.9 % 42.0-52.0 L MEAN CELL VOLUME (test code = MCV) 90.6 fL 80-98 N MEAN CELL HGB (test code = MCH) 29.2 picogram 27.0-33.0 N MEAN CELL HGB CONCETRATION (test code = MCHC) 32.3 gram/dL 33.0-36. 0 L RED CELL DISTRIBUTION WIDTH (test code = RDW) 12.7 % 11.6-16. 2 N RED CELL DISTRIBUTION WIDTH SD (test code = RDW-SD) 41.4 fL 37 .0-51.0 N PLATELET COUNT (test code = PLT) 336 K/mm3 150-450 N MEAN PLATELET VOLUME (test code = MPV) 9.6 fL 6.7-11.0 N IMMATURE GRANULOCYTE % (test code = IG%) 6.5 % 0.0-5.0 H "The appearance of immature granulocytes (myelocytes,pro-myelocytes, meta-myelocytes) in the peripheral blood ofnon- individuals can indicate a response toinfection, inflammation, or other stimulus to the bonemarrow" NUCLEATED RBC % (test code = NRBC%) 0.0 % 0-0 N NEUTROPHIL # (test code = NT#) 3.31 K/mm3 1.8-7.7 N IMMATURE GRANULOCYTE # (test code = IG#) 0.27 x10 3/uL 0-0.03 H LYMPHOCYTE # (test code = LY#) 0.41 K/mm3 1.0-5.0 L MONOCYTE # (test code = MO#) 0.18 K/mm3 0-0.8 N EOSINOPHIL # (test code = EO#) 0.00 K/mm3 0.0-0.5 N BASOPHIL # (test code = BA#) 0.01 K/mm3 0.0-0.2 N NUCLEATED RBC # (test code = NRBC#) 0.00 K/mm3 0.0-0.1 N MANUAL DIFF REQUIRED (test code = MDIFF) YES STAIN ACCEPTABILITY (test code = STN ACCEPTABLE) TOTAL CELLS COUNTED (test code = TCC) #CELLS SEGMENTED NEUTROPHILS (test code = SEG) % 39-69 LYMPHOCYTE (test code = LYMPH) % 25-55 MONOCYTE (test code = MON) % 0-10 EOSINOPHIL (test code = EOS) % 0.0-5.0 MORPHOLOGY COMMENT (test code = MOC) PLATELET ESTIMATE (test code = PLTEST) PLATELET MORPHOLOGY (test code = PLTMORPH) CBC W/MANUAL [id number] 07:03:00* Test Item Value Reference Range Interpretation Comments WHITE BLOOD CELL (test code = WBC) 4.2 K/mm3 4.5-12.5 L RED BLOOD CELL (test code = RBC) 3.08 mill/mm3 4.0-5.8 L HEMOGLOBIN (test code = HGB) 9.0 gram/dL 13.0-17.5 L HEMATOCRIT (test code = HCT) 27.9 % 42.0-52.0 L MEAN CELL VOLUME (test code = MCV) 90.6 fL 80-98 N MEAN CELL HGB (test code = MCH) 29.2 picogram 27.0-33.0 N MEAN CELL HGB CONCETRATION (test code = MCHC) 32.3 gram/dL 33.0-36. 0 L RED CELL DISTRIBUTION WIDTH (test code = RDW) 12.7 % 11.6-16. 2 N RED CELL DISTRIBUTION WIDTH SD (test code = RDW-SD) 41.4 fL 37 .0-51.0 N PLATELET COUNT (test code = PLT) 336 K/mm3 150-450 N MEAN PLATELET VOLUME (test code = MPV) 9.6 fL 6.7-11.0 N IMMATURE GRANULOCYTE % (test code = IG%) 6.5 % 0.0-5.0 H "The appearance of immature granulocytes (myelocytes,pro-myelocytes, meta-myelocytes) in the peripheral blood ofnon- individuals can indicate a response toinfection, inflammation, or other stimulus to the bonemarrow" NUCLEATED RBC % (test code = NRBC%) 0.0 % 0-0 N NEUTROPHIL # (test code = NT#) 3.31 K/mm3 1.8-7.7 N IMMATURE GRANULOCYTE # (test code = IG#) 0.27 x10 3/uL 0-0.03 H LYMPHOCYTE # (test code = LY#) 0.41 K/mm3 1.0-5.0 L MONOCYTE # (test code = MO#) 0.18 K/mm3 0-0.8 N EOSINOPHIL # (test code = EO#) 0.00 K/mm3 0.0-0.5 N BASOPHIL # (test code = BA#) 0.01 K/mm3 0.0-0.2 N NUCLEATED RBC # (test code = NRBC#) 0.00 K/mm3 0.0-0.1 N MANUAL DIFF REQUIRED (test code = MDIFF) YES STAIN ACCEPTABILITY (test code = STN ACCEPTABLE) TOTAL CELLS COUNTED (test code = TCC) #CELLS SEGMENTED NEUTROPHILS (test code = SEG) % 39-69 LYMPHOCYTE (test code = LYMPH) % 25-55 MONOCYTE (test code = MON) % 0-10 MORPHOLOGY COMMENT (test code = MOC) PLATELET ESTIMATE (test code = PLTEST) PLATELET MORPHOLOGY (test code = PLTMORPH) CBC W/MANUAL [id number] 07:02:00* Test Item Value Reference Range Interpretation Comments WHITE BLOOD CELL (test code = WBC) 4.2 K/mm3 4.5-12.5 L RED BLOOD CELL (test code = RBC) 3.08 mill/mm3 4.0-5.8 L HEMOGLOBIN (test code = HGB) 9.0 gram/dL 13.0-17.5 L HEMATOCRIT (test code = HCT) 27.9 % 42.0-52.0 L MEAN CELL VOLUME (test code = MCV) 90.6 fL 80-98 N MEAN CELL HGB (test code = MCH) 29.2 picogram 27.0-33.0 N MEAN CELL HGB CONCETRATION (test code = MCHC) 32.3 gram/dL 33.0-36. 0 L RED CELL DISTRIBUTION WIDTH (test code = RDW) 12.7 % 11.6-16. 2 N RED CELL DISTRIBUTION WIDTH SD (test code = RDW-SD) 41.4 fL 37 .0-51.0 N PLATELET COUNT (test code = PLT) 336 K/mm3 150-450 N MEAN PLATELET VOLUME (test code = MPV) 9.6 fL 6.7-11.0 N IMMATURE GRANULOCYTE % (test code = IG%) 6.5 % 0.0-5.0 H "The appearance of immature granulocytes (myelocytes,pro-myelocytes, meta-myelocytes) in the peripheral blood ofnon- individuals can indicate a response toinfection, inflammation, or other stimulus to the bonemarrow" NUCLEATED RBC % (test code = NRBC%) 0.0 % 0-0 N NEUTROPHIL # (test code = NT#) 3.31 K/mm3 1.8-7.7 N IMMATURE GRANULOCYTE # (test code = IG#) 0.27 x10 3/uL 0-0.03 H LYMPHOCYTE # (test code = LY#) 0.41 K/mm3 1.0-5.0 L MONOCYTE # (test code = MO#) 0.18 K/mm3 0-0.8 N EOSINOPHIL # (test code = EO#) 0.00 K/mm3 0.0-0.5 N BASOPHIL # (test code = BA#) 0.01 K/mm3 0.0-0.2 N NUCLEATED RBC # (test code = NRBC#) 0.00 K/mm3 0.0-0.1 N MANUAL DIFF REQUIRED (test code = MDIFF) YES STAIN ACCEPTABILITY (test code = STN ACCEPTABLE) TOTAL CELLS COUNTED (test code = TCC) #CELLS SEGMENTED NEUTROPHILS (test code = SEG) % 39-69 LYMPHOCYTE (test code = LYMPH) % 25-55 MONOCYTE (test code = MON) % 0-10 EOSINOPHIL (test code = EOS) % 0.0-5.0 CABOT RINGS (test code = CAB) MORPHOLOGY COMMENT (test code = MOC) PLATELET ESTIMATE (test code = PLTEST) PLATELET MORPHOLOGY (test code = PLTMORPH) CBC W/MANUAL [id number] 07:02:00* Test Item Value Reference Range Interpretation Comments WHITE BLOOD CELL (test code = WBC) 4.2 K/mm3 4.5-12.5 L RED BLOOD CELL (test code = RBC) 3.08 mill/mm3 4.0-5.8 L HEMOGLOBIN (test code = HGB) 9.0 gram/dL 13.0-17.5 L HEMATOCRIT (test code = HCT) 27.9 % 42.0-52.0 L MEAN CELL VOLUME (test code = MCV) 90.6 fL 80-98 N MEAN CELL HGB (test code = MCH) 29.2 picogram 27.0-33.0 N MEAN CELL HGB CONCETRATION (test code = MCHC) 32.3 gram/dL 33.0-36. 0 L RED CELL DISTRIBUTION WIDTH (test code = RDW) 12.7 % 11.6-16. 2 N RED CELL DISTRIBUTION WIDTH SD (test code = RDW-SD) 41.4 fL 37 .0-51.0 N PLATELET COUNT (test code = PLT) 336 K/mm3 150-450 N MEAN PLATELET VOLUME (test code = MPV) 9.6 fL 6.7-11.0 N IMMATURE GRANULOCYTE % (test code = IG%) 6.5 % 0.0-5.0 H "The appearance of immature granulocytes (myelocytes,pro-myelocytes, meta-myelocytes) in the peripheral blood ofnon- individuals can indicate a response toinfection, inflammation, or other stimulus to the bonemarrow" NUCLEATED RBC % (test code = NRBC%) 0.0 % 0-0 N NEUTROPHIL # (test code = NT#) 3.31 K/mm3 1.8-7.7 N IMMATURE GRANULOCYTE # (test code = IG#) 0.27 x10 3/uL 0-0.03 H LYMPHOCYTE # (test code = LY#) 0.41 K/mm3 1.0-5.0 L MONOCYTE # (test code = MO#) 0.18 K/mm3 0-0.8 N EOSINOPHIL # (test code = EO#) 0.00 K/mm3 0.0-0.5 N BASOPHIL # (test code = BA#) 0.01 K/mm3 0.0-0.2 N NUCLEATED RBC # (test code = NRBC#) 0.00 K/mm3 0.0-0.1 N MANUAL DIFF REQUIRED (test code = MDIFF) YES STAIN ACCEPTABILITY (test code = STN ACCEPTABLE) TOTAL CELLS COUNTED (test code = TCC) #CELLS SEGMENTED NEUTROPHILS (test code = SEG) % 39-69 LYMPHOCYTE (test code = LYMPH) % 25-55 MONOCYTE (test code = MON) % 0-10 EOSINOPHIL (test code = EOS) % 0.0-5.0 CABOT RINGS (test code = CAB) MORPHOLOGY COMMENT (test code = MOC) PLATELET ESTIMATE (test code = PLTEST) PLATELET MORPHOLOGY (test code = PLTMORPH) [id number] 20:29:00* Test Item Value Reference Range Interpretation Comments GLUBED (test code = GLUBED) 189 mg/dL 74-106 H Performed by certified photogravure press operator at [facility] [id number] 17:58:00* Test Item Value Reference Range Interpretation Comments GLUBED (test code = GLUBED) 129 mg/dL 74-106 H Performed by certified photogravure press operator at [facility] [id number] 13:40:00* Test Item Value Reference Range Interpretation Comments GLUBED (test code = GLUBED) 96 mg/dL 74-106 N Performed by certified photogravure press operator at [facility] [id number] 13:05:00* Test Item Value Reference Range Interpretation Comments GLUBED (test code = GLUBED) 121 mg/dL 74-106 H Performed by certified photogravure press operator at [facility] [id number] 09:06:00* Test Item Value Reference Range Interpretation Comments GLUBED (test code = GLUBED) 64 mg/dL 74-106 L Performed by certified photogravure press operator at [facility] [id number] 08:28:00* Test Item Value Reference Range Interpretation Comments TROPONIN-I (test code = TROPI) 0.022 ng/mL 0-0.045 N COMMENTS TO WIRE BENDER: COLLECT 3 HOURS AFTER PREVIOUS [id number] 07:47:00* Test Item Value Reference Range Interpretation Comments D-DIMER (test code = DDIMER) 1049.00 ng/mLFEU 0-500 HH RESULT VERIFIED BY REPEAT ANALYSISCritical results verified and read back by Nurse? YClinical Cut-off value for D-Dimer is 500 ng/mL FEU. Comment: The [employer] D-Dimer assay is intended for use asan aid in the diagnosis of venous thromboembolism (VTE)[deep vein thrombosis (DVT) or pulmonary embolism (PE)].The measurement of D-Dimer should not be used as an aid inthe diagnosis of VTE, in patient with: - Therapeutic dose anticoagulant therapy for >24 hours -Fibrinolytic therapy within previous 7 days -Trauma or surgery within previous 4 weeks - Disseminated malignancies -Aortic aneurysm -Sepsis, severe infections, pneumonia, severe skin infections -Liver cirrhosis - [id number] 07:38:00* Test Item Value Reference Range Interpretation Comments D-DIMER (test code = DDIMER) 1049.00 ng/mLFEU 0-500 HH RESULT VERIFIED BY REPEAT ANALYSISResults called to by ELROY 11/15/19 0737Critical results verified and read back by Nurse? Clinical Cut-off value for D-Dimer is 500 ng/mL FEU. Comment: The [employer] D-Dimer assay is intended for use asan aid in the diagnosis of venous thromboembolism (VTE)[deep vein thrombosis (DVT) or pulmonary embolism (PE)].The measurement of D-Dimer should not be used as an aid inthe diagnosis of VTE, in patient with: -Therapeutic dose anticoagulant therapy for >24 hours -Fibrinolytic therapy within previous 7 days -Trauma or surgery within previous 4 weeks -Disseminated malignancies -Aortic aneurysm - Sepsis, severe infections, pneumonia, severe skin infections -Liver cirrhosis - COMPREHENSIVE METABOLIC [id number] 07:21:00* Test Item Value Reference Range Interpretation Comments SODIUM (test code = NA) 142 mmol/L 136-145 N POTASSIUM (test code = K) 3.5 mmol/L 3.5-5.1 N CHLORIDE (test code = CL) 106.0 mmol/L 98-107 N CARBON DIOXIDE (test code = CO2) 24.0 mmol/L 21-32 N ANION GAP (test code = GAP) 15.5 10-20 N GLUCOSE (test code = GLU) 71 mg/dL 74-106 L BLOOD UREA NITROGEN (test code = BUN) 18 mg/dL 7-18 N GLOMERULAR FILTRATION RATE (test code = GFR) > 60 mL/min >=60 Estimated GFR by using Modified MDRD formula.Chronic kidney disease is defined as either kidney damageor GFR <60 mL/min/1.73 m2 for >3 months. CREATININE (test code = CREAT) 0.80 mg/dL 0.7-1.3 N BUN/CREATININE RATIO (test code = BUN/CREA) 23.3 10-20 H TOTAL PROTEIN (test code = PROT) 6.2 gram/dL 6.4-8.2 L ALBUMIN (test code = ALB) 2.4 g/dL 3.4-5.0 L GLOBULIN (test code = GLOB) 3.8 gram/dL 2.7-4.2 N ALBUMIN/GLOBULIN RATIO (test code = A/G) 0.6 0.75-1.50 L CALCIUM (test code = CA) 8.1 mg/dL 8.5-10.1 L BILIRUBIN TOTAL (test code = BILT) 0.30 mg/dL 0.0-1.0 N SGOT/AST (test code = AST) 28 IUnit/L 15-37 N SGPT/ALT (test code = ALT) 19 IUnit/L 12-78 N ALKALINE PHOSPHATASE TOTAL (test code = ALKP) 68 IUnit/L 45-117 N Note change in reference range due to change in reagent. THYROID STIMULATING [id number] 07:21:00* Test Item Value Reference Range Interpretation Comments THYROID STIMULATING HORMONE (test code = TSH) 3.120 uIU/mL 0.36-3.7 4 N TSH REFERENCE RANGES: EUTHYROID: 0.35 - 4.3 mIU/mL HYPO : > 5.5 mIU/mL HYPER : < 0.35 mIU/mL [id number] 07:11:00* Test Item Value Reference Range Interpretation Comments TROPONIN-I (test code = TROPI) 0.022 ng/mL 0-0.045 N COMMENTS TO WIRE BENDER: COLLECT 3 HOURS AFTER PREVIOUS SAMPLECBC W/MANUAL [id number] 07:00:00* Test Item Value Reference Range Interpretation Comments WHITE BLOOD CELL (test code = WBC) 5.4 K/mm3 4.5-12.5 N RED BLOOD CELL (test code = RBC) 3.22 mill/mm3 4.0-5.8 L HEMOGLOBIN (test code = HGB) 9.3 gram/dL 13.0-17.5 L HEMATOCRIT (test code = HCT) 29.6 % 42.0-52.0 L MEAN CELL VOLUME (test code = MCV) 91.9 fL 80-98 N MEAN CELL HGB (test code = MCH) 28.9 picogram 27.0-33.0 N MEAN CELL HGB CONCETRATION (test code = MCHC) 31.4 gram/dL 33.0-36. 0 L RED CELL DISTRIBUTION WIDTH (test code = RDW) 12.7 % 11.6-16. 2 N RED CELL DISTRIBUTION WIDTH SD (test code = RDW-SD) 42.5 fL 37 .0-51.0 N PLATELET COUNT (test code = PLT) 296 K/mm3 150-450 RESULT VERIFIED BY REPEAT ANALYSIS MEAN PLATELET VOLUME (test code = MPV) 9.4 fL 6.7-11.0 N IMMATURE GRANULOCYTE % (test code = IG%) 6.5 % 0.0-5.0 H "The appearance of immature granulocytes (myelocytes,pro-myelocytes, meta-myelocytes) in the peripheral blood ofnon- individuals can indicate a response toinfection, inflammation, or other stimulus to the bonemarrow" NUCLEATED RBC % (test code = NRBC%) 0.0 % 0-0 N NEUTROPHIL # (test code = NT#) 3.79 K/mm3 1.8-7.7 N IMMATURE GRANULOCYTE # (test code = IG#) 0.35 x10 3/uL 0-0.03 H LYMPHOCYTE # (test code = LY#) 0.96 K/mm3 1.0-5.0 L MONOCYTE # (test code = MO#) 0.26 K/mm3 0-0.8 N EOSINOPHIL # (test code = EO#) 0.00 K/mm3 0.0-0.5 N BASOPHIL # (test code = BA#) 0.01 K/mm3 0.0-0.2 N NUCLEATED RBC # (test code = NRBC#) 0.00 K/mm3 0.0-0.1 N MANUAL DIFF REQUIRED (test code = MDIFF) YES STAIN ACCEPTABILITY (test code = STN ACCEPTABLE) STAIN ACCEPTABLE TOTAL CELLS COUNTED (test code = TCC) 115 #CELLS SEGMENTED NEUTROPHILS (test code = SEG) 78.3 % 39-69 H BAND NEUTROPHIL (test code = BAND) 1.7 % 0-10 N LYMPHOCYTE (test code = LYMPH) 11.3 % 25-55 L REACTIVE LYMPH (test code = RELYMPH) 0.9 % MONOCYTE (test code = MON) 2.6 % 0-10 N EOSINOPHIL (test code = EOS) 0 % 0.0-5.0 N BASOPHIL (test code = BASO) 0 % 0-1.0 N METAMYELOCYTE (test code = META) 1.7 % 0-0 H MYELOCYTE (test code = MYELO) 3.5 % 0.0-0.0 H PROMYELOCYTE (test code = PROM) 0 % 0-0 N POLYCHROMASIA (test code = POLC) 1+ POIKILOCYTOSIS (test code = POIK) 1+ ANISOCYTOSIS (test code = ANISO) 1+ MICROCYTOSIS (test code = MICR) 1+ TEAR DROP CELLS (test code = TEAR) 1+ TOXIC GRANULATION (test code = TOX) 1+ PLATELET ESTIMATE (test code = PLTEST) ADEQUATE PLATELET MORPHOLOGY (test code = PLTMORPH) NORMAL IMMATURE FORMS (test code = IMMAT) 0 % 0-0 N COMPREHENSIVE METABOLIC [id number] 07:00:00* Test Item Value Reference Range Interpretation Comments SODIUM (test code = NA) 142 mmol/L 136-145 N POTASSIUM (test code = K) 3.5 mmol/L 3.5-5.1 N CHLORIDE (test code = CL) 106.0 mmol/L 98-107 N CARBON DIOXIDE (test code = CO2) mmol/L 21-32 ANION GAP (test code = GAP) 10-20 GLUCOSE (test code = GLU) mg/dL 74-106 BLOOD UREA NITROGEN (test code = BUN) mg/dL 7-18 GLOMERULAR FILTRATION RATE (test code = GFR) mL/min >=60 CREATININE (test code = CREAT) mg/dL 0.7-1.3 BUN/CREATININE RATIO (test code = BUN/CREA) 10-20 TOTAL PROTEIN (test code = PROT) gram/dL 6.4-8.2 ALBUMIN (test code = ALB) g/dL 3.4-5.0 GLOBULIN (test code = GLOB) gram/dL 2.7-4.2 ALBUMIN/GLOBULIN RATIO (test code = A/G) 0.75-1.50 CALCIUM (test code = CA) mg/dL 8.5-10.1 BILIRUBIN TOTAL (test code = BILT) mg/dL 0.0-1.0 SGOT/AST (test code = AST) IUnit/L 15-37 SGPT/ALT (test code = ALT) IUnit/L 12-78 ALKALINE PHOSPHATASE TOTAL (test code = ALKP) IUnit/L 45-117 THYROID STIMULATING [id number] 07:00:00* Test Item Value Reference Range Interpretation Comments THYROID STIMULATING HORMONE (test code = TSH) uIU/mL 0.36-3.7 4 CBC W/MANUAL [id number] 06:37:00* Test Item Value Reference Range Interpretation Comments WHITE BLOOD CELL (test code = WBC) 5.4 K/mm3 4.5-12.5 N RED BLOOD CELL (test code = RBC) 3.22 mill/mm3 4.0-5.8 L HEMOGLOBIN (test code = HGB) 9.3 gram/dL 13.0-17.5 L HEMATOCRIT (test code = HCT) 29.6 % 42.0-52.0 L MEAN CELL VOLUME (test code = MCV) 91.9 fL 80-98 N MEAN CELL HGB (test code = MCH) 28.9 picogram 27.0-33.0 N MEAN CELL HGB CONCETRATION (test code = MCHC) 31.4 gram/dL 33.0-36. 0 L RED CELL DISTRIBUTION WIDTH (test code = RDW) 12.7 % 11.6-16. 2 N RED CELL DISTRIBUTION WIDTH SD (test code = RDW-SD) 42.5 fL 37 .0-51.0 N PLATELET COUNT (test code = PLT) 296 K/mm3 150-450 RESULT VERIFIED BY REPEAT ANALYSIS MEAN PLATELET VOLUME (test code = MPV) 9.4 fL 6.7-11.0 N IMMATURE GRANULOCYTE % (test code = IG%) 6.5 % 0.0-5.0 H "The appearance of immature granulocytes (myelocytes,pro-myelocytes, meta-myelocytes) in the peripheral blood ofnon- individuals can indicate a response toinfection, inflammation, or other stimulus to the bonemarrow" NUCLEATED RBC % (test code = NRBC%) 0.0 % 0-0 N NEUTROPHIL # (test code = NT#) 3.79 K/mm3 1.8-7.7 N IMMATURE GRANULOCYTE # (test code = IG#) 0.35 x10 3/uL 0-0.03 H LYMPHOCYTE # (test code = LY#) 0.96 K/mm3 1.0-5.0 L MONOCYTE # (test code = MO#) 0.26 K/mm3 0-0.8 N EOSINOPHIL # (test code = EO#) 0.00 K/mm3 0.0-0.5 N BASOPHIL # (test code = BA#) 0.01 K/mm3 0.0-0.2 N NUCLEATED RBC # (test code = NRBC#) 0.00 K/mm3 0.0-0.1 N MANUAL DIFF REQUIRED (test code = MDIFF) YES STAIN ACCEPTABILITY (test code = STN ACCEPTABLE) TOTAL CELLS COUNTED (test code = TCC) #CELLS SEGMENTED NEUTROPHILS (test code = SEG) % 39-69 LYMPHOCYTE (test code = LYMPH) % 25-55 MONOCYTE (test code = MON) % 0-10 EOSINOPHIL (test code = EOS) % 0.0-5.0 CABOT RINGS (test code = CAB) MORPHOLOGY COMMENT (test code = MOC) PLATELET ESTIMATE (test code = PLTEST) PLATELET MORPHOLOGY (test code = PLTMORPH) CBC W/MANUAL [id number] 06:37:00* Test Item Value Reference Range Interpretation Comments WHITE BLOOD CELL (test code = WBC) 5.4 K/mm3 4.5-12.5 N RED BLOOD CELL (test code = RBC) 3.22 mill/mm3 4.0-5.8 L HEMOGLOBIN (test code = HGB) 9.3 gram/dL 13.0-17.5 L HEMATOCRIT (test code = HCT) 29.6 % 42.0-52.0 L MEAN CELL VOLUME (test code = MCV) 91.9 fL 80-98 N MEAN CELL HGB (test code = MCH) 28.9 picogram 27.0-33.0 N MEAN CELL HGB CONCETRATION (test code = MCHC) 31.4 gram/dL 33.0-36. 0 L RED CELL DISTRIBUTION WIDTH (test code = RDW) 12.7 % 11.6-16. 2 N RED CELL DISTRIBUTION WIDTH SD (test code = RDW-SD) 42.5 fL 37 .0-51.0 N PLATELET COUNT (test code = PLT) 296 K/mm3 150-450 RESULT VERIFIED BY REPEAT ANALYSIS MEAN PLATELET VOLUME (test code = MPV) 9.4 fL 6.7-11.0 N IMMATURE GRANULOCYTE % (test code = IG%) 6.5 % 0.0-5.0 H "The appearance of immature granulocytes (myelocytes,pro-myelocytes, meta-myelocytes) in the peripheral blood ofnon- individuals can indicate a response toinfection, inflammation, or other stimulus to the bonemarrow" NUCLEATED RBC % (test code = NRBC%) 0.0 % 0-0 N NEUTROPHIL # (test code = NT#) 3.79 K/mm3 1.8-7.7 N IMMATURE GRANULOCYTE # (test code = IG#) 0.35 x10 3/uL 0-0.03 H LYMPHOCYTE # (test code = LY#) 0.96 K/mm3 1.0-5.0 L MONOCYTE # (test code = MO#) 0.26 K/mm3 0-0.8 N EOSINOPHIL # (test code = EO#) 0.00 K/mm3 0.0-0.5 N BASOPHIL # (test code = BA#) 0.01 K/mm3 0.0-0.2 N NUCLEATED RBC # (test code = NRBC#) 0.00 K/mm3 0.0-0.1 N MANUAL DIFF REQUIRED (test code = MDIFF) YES STAIN ACCEPTABILITY (test code = STN ACCEPTABLE) TOTAL CELLS COUNTED (test code = TCC) #CELLS SEGMENTED NEUTROPHILS (test code = SEG) % 39-69 LYMPHOCYTE (test code = LYMPH) % 25-55 MONOCYTE (test code = MON) % 0-10 EOSINOPHIL (test code = EOS) % 0.0-5.0 CABOT RINGS (test code = CAB) MORPHOLOGY COMMENT (test code = MOC) PLATELET ESTIMATE (test code = PLTEST) PLATELET MORPHOLOGY (test code = PLTMORPH) CBC W/MANUAL [id number] 06:37:00* Test Item Value Reference Range Interpretation Comments WHITE BLOOD CELL (test code = WBC) 5.4 K/mm3 4.5-12.5 N RED BLOOD CELL (test code = RBC) 3.22 mill/mm3 4.0-5.8 L HEMOGLOBIN (test code = HGB) 9.3 gram/dL 13.0-17.5 L HEMATOCRIT (test code = HCT) 29.6 % 42.0-52.0 L MEAN CELL VOLUME (test code = MCV) 91.9 fL 80-98 N MEAN CELL HGB (test code = MCH) 28.9 picogram 27.0-33.0 N MEAN CELL HGB CONCETRATION (test code = MCHC) 31.4 gram/dL 33.0-36. 0 L RED CELL DISTRIBUTION WIDTH (test code = RDW) 12.7 % 11.6-16. 2 N RED CELL DISTRIBUTION WIDTH SD (test code = RDW-SD) 42.5 fL 37 .0-51.0 N PLATELET COUNT (test code = PLT) 296 K/mm3 150-450 RESULT VERIFIED BY REPEAT ANALYSIS MEAN PLATELET VOLUME (test code = MPV) 9.4 fL 6.7-11.0 N IMMATURE GRANULOCYTE % (test code = IG%) 6.5 % 0.0-5.0 H "The appearance of immature granulocytes (myelocytes,pro-myelocytes, meta-myelocytes) in the peripheral blood ofnon- individuals can indicate a response toinfection, inflammation, or other stimulus to the bonemarrow" NUCLEATED RBC % (test code = NRBC%) 0.0 % 0-0 N NEUTROPHIL # (test code = NT#) 3.79 K/mm3 1.8-7.7 N IMMATURE GRANULOCYTE # (test code = IG#) 0.35 x10 3/uL 0-0.03 H LYMPHOCYTE # (test code = LY#) 0.96 K/mm3 1.0-5.0 L MONOCYTE # (test code = MO#) 0.26 K/mm3 0-0.8 N EOSINOPHIL # (test code = EO#) 0.00 K/mm3 0.0-0.5 N BASOPHIL # (test code = BA#) 0.01 K/mm3 0.0-0.2 N NUCLEATED RBC # (test code = NRBC#) 0.00 K/mm3 0.0-0.1 N MANUAL DIFF REQUIRED (test code = MDIFF) YES STAIN ACCEPTABILITY (test code = STN ACCEPTABLE) TOTAL CELLS COUNTED (test code = TCC) #CELLS SEGMENTED NEUTROPHILS (test code = SEG) % 39-69 LYMPHOCYTE (test code = LYMPH) % 25-55 MONOCYTE (test code = MON) % 0-10 EOSINOPHIL (test code = EOS) % 0.0-5.0 MORPHOLOGY COMMENT (test code = MOC) PLATELET ESTIMATE (test code = PLTEST) PLATELET MORPHOLOGY (test code = PLTMORPH) CBC W/MANUAL [id number] 06:37:00* Test Item Value Reference Range Interpretation Comments WHITE BLOOD CELL (test code = WBC) 5.4 K/mm3 4.5-12.5 N RED BLOOD CELL (test code = RBC) 3.22 mill/mm3 4.0-5.8 L HEMOGLOBIN (test code = HGB) 9.3 gram/dL 13.0-17.5 L HEMATOCRIT (test code = HCT) 29.6 % 42.0-52.0 L MEAN CELL VOLUME (test code = MCV) 91.9 fL 80-98 N MEAN CELL HGB (test code = MCH) 28.9 picogram 27.0-33.0 N MEAN CELL HGB CONCETRATION (test code = MCHC) 31.4 gram/dL 33.0-36. 0 L RED CELL DISTRIBUTION WIDTH (test code = RDW) 12.7 % 11.6-16. 2 N RED CELL DISTRIBUTION WIDTH SD (test code = RDW-SD) 42.5 fL 37 .0-51.0 N PLATELET COUNT (test code = PLT) 296 K/mm3 150-450 RESULT VERIFIED BY REPEAT ANALYSIS MEAN PLATELET VOLUME (test code = MPV) 9.4 fL 6.7-11.0 N IMMATURE GRANULOCYTE % (test code = IG%) 6.5 % 0.0-5.0 H "The appearance of immature granulocytes (myelocytes,pro-myelocytes, meta-myelocytes) in the peripheral blood ofnon- individuals can indicate a response toinfection, inflammation, or other stimulus to the bonemarrow" NUCLEATED RBC % (test code = NRBC%) 0.0 % 0-0 N NEUTROPHIL # (test code = NT#) 3.79 K/mm3 1.8-7.7 N IMMATURE GRANULOCYTE # (test code = IG#) 0.35 x10 3/uL 0-0.03 H LYMPHOCYTE # (test code = LY#) 0.96 K/mm3 1.0-5.0 L MONOCYTE # (test code = MO#) 0.26 K/mm3 0-0.8 N EOSINOPHIL # (test code = EO#) 0.00 K/mm3 0.0-0.5 N BASOPHIL # (test code = BA#) 0.01 K/mm3 0.0-0.2 N NUCLEATED RBC # (test code = NRBC#) 0.00 K/mm3 0.0-0.1 N MANUAL DIFF REQUIRED (test code = MDIFF) YES STAIN ACCEPTABILITY (test code = STN ACCEPTABLE) TOTAL CELLS COUNTED (test code = TCC) #CELLS SEGMENTED NEUTROPHILS (test code = SEG) % 39-69 LYMPHOCYTE (test code = LYMPH) % 25-55 MONOCYTE (test code = MON) % 0-10 MORPHOLOGY COMMENT (test code = MOC) PLATELET ESTIMATE (test code = PLTEST) PLATELET MORPHOLOGY (test code = PLTMORPH) CBC W/MANUAL [id number] 06:37:00* Test Item Value Reference Range Interpretation Comments WHITE BLOOD CELL (test code = WBC) 5.4 K/mm3 4.5-12.5 N RED BLOOD CELL (test code = RBC) 3.22 mill/mm3 4.0-5.8 L HEMOGLOBIN (test code = HGB) 9.3 gram/dL 13.0-17.5 L HEMATOCRIT (test code = HCT) 29.6 % 42.0-52.0 L MEAN CELL VOLUME (test code = MCV) 91.9 fL 80-98 N MEAN CELL HGB (test code = MCH) 28.9 picogram 27.0-33.0 N MEAN CELL HGB CONCETRATION (test code = MCHC) 31.4 gram/dL 33.0-36. 0 L RED CELL DISTRIBUTION WIDTH (test code = RDW) 12.7 % 11.6-16. 2 N RED CELL DISTRIBUTION WIDTH SD (test code = RDW-SD) 42.5 fL 37 .0-51.0 N PLATELET COUNT (test code = PLT) 296 K/mm3 150-450 RESULT VERIFIED BY REPEAT ANALYSIS MEAN PLATELET VOLUME (test code = MPV) 9.4 fL 6.7-11.0 N IMMATURE GRANULOCYTE % (test code = IG%) 6.5 % 0.0-5.0 H "The appearance of immature granulocytes (myelocytes,pro-myelocytes, meta-myelocytes) in the peripheral blood ofnon- individuals can indicate a response toinfection, inflammation, or other stimulus to the bonemarrow" NUCLEATED RBC % (test code = NRBC%) 0.0 % 0-0 N NEUTROPHIL # (test code = NT#) 3.79 K/mm3 1.8-7.7 N IMMATURE GRANULOCYTE # (test code = IG#) 0.35 x10 3/uL 0-0.03 H LYMPHOCYTE # (test code = LY#) 0.96 K/mm3 1.0-5.0 L MONOCYTE # (test code = MO#) 0.26 K/mm3 0-0.8 N EOSINOPHIL # (test code = EO#) 0.00 K/mm3 0.0-0.5 N BASOPHIL # (test code = BA#) 0.01 K/mm3 0.0-0.2 N NUCLEATED RBC # (test code = NRBC#) 0.00 K/mm3 0.0-0.1 N MANUAL DIFF REQUIRED (test code = MDIFF) YES STAIN ACCEPTABILITY (test code = STN ACCEPTABLE) TOTAL CELLS COUNTED (test code = TCC) #CELLS SEGMENTED NEUTROPHILS (test code = SEG) % 39-69 LYMPHOCYTE (test code = LYMPH) % 25-55 MONOCYTE (test code = MON) % 0-10 EOSINOPHIL (test code = EOS) % 0.0-5.0 CABOT RINGS (test code = CAB) MORPHOLOGY COMMENT (test code = MOC) PLATELET ESTIMATE (test code = PLTEST) PLATELET MORPHOLOGY (test code = PLTMORPH) LACTIC [id number] 06:22:00* Test Item Value Reference Range Interpretation Comments LACTIC ACID (test code = LACT) 0.8 mmol/L 0.4-1.9 N PROTHROMBIN [id number] 06:18:00* Test Item Value Reference Range Interpretation Comments PROTHROMBIN TIME PATIENT (test code = PTP) 13.3 seconds 9.0-14.0 N INTERNATIONAL NORMAL RATIO (test code = INR) 1.1 0.8-1.2 N The therapeutic range for oral anticoagulant therapy formost indications is an international normalized ratio (INR)of between 2.0 and 3.0. The recommended therapeutic INRrange for various clinical situations is listed below: Clinical Situation INR range Pulmonary e mbolism treatment (2.0-3.0)Venous thrombosis treatmentVenous thrombosis prophylaxis (high risk surgery)Prevention of systemic embolism from: Acute myocardial infarction Valvular heart disease Atrial fibrillation Mechanical prosthetic heart valves (2.5-3.5) IS PATIENT ON ANTICOAGULANTS? NTHROMBOPLASTIN TIME [id number] 06:18:00* Test Item Value Reference Range Interpretation Comments THROMBOPLASTIN TIME PARTIAL (test code = PTT) 36.6 seconds 23.0-37. 0 N IS PATIENT ON ANTICOAGULANTS? [id number] 23:08:00* Test Item Value Reference Range Interpretation Comments GLUBED (test code = GLUBED) 176 mg/dL 74-106 H Performed by certified photogravure press operator at [facility] [id number] 22:45:00* Test Item Value Reference Range Interpretation Comments GLUBED (test code = GLUBED) 57 mg/dL 74-106 L Performed by certified photogravure press operator at [facility] [id number] 20:49:00* Test Item Value Reference Range Interpretation Comments D-DIMER (test code = DDIMER) 1197.00 ng/mLFEU 0-500 HH Results called to [id number] by BLAINE 11/14/19 2048Critical results verified and read back by Nurse? YClinical Cut-off value for D-Dimer is 500 ng/mL FEU. Comment: The [employer] D- Dimer assay is intended for use asan aid in the diagnosis of venous thromboembolism (VTE)[deep vein thrombosis (DVT) or pulmonary embolism (PE)].The measurement of D-Dimer should not be used as an aid inthe diagnosis of VTE, in patient with: -Therapeutic dose anticoagulant therapy for >24 hours - Fibrinolytic therapy within previous 7 days -Trauma or surgery within previous 4 weeks -Disseminated malignancies -Aortic aneurysm -Sepsis, severe infections, pneumonia, severe skin infections -Liver cirrhosis - PROCALCITONIN (PCT)2019-11-14 20:40:00* Test Item Value Reference Range Interpretation Comments PROCALCITONIN (PCT) (test code = PROCAL) < 0.05 ng/ml Concentration Interpretation (ng/mL) <0.51 Sepsis is not likely. Local bacterial infection is possible. (LOW RISK for progression to Sepsis) 0.51 - 2.00 Sepsis is possible, but other conditions are known to elevate PCT as well. (MODERATE RISK for progression to Sepsis) > 2.00 Sepsis is likely, unless other causes are known. (HIGH RISK for progression to Severe Sepsis or Septic Shock) 10.00 High likelihood of Severe Sepsis or Septic or higher Shock. *Increased PCT levels may not always be related to systemic bacterial infection.*Low PCT levels do not automatically exclude the presence of bacterial infection.*All results should be interpreted taking into account the patients history. LACTIC DEHYDROGENASE(LDH)2019-11-14 20:34:00* Test Item Value Reference Range Interpretation Comments LACTIC DEHYDROGENASE(LDH) (test code = LDH) 251 IUnit/L 84-246 H [id number] 20:34:00* Test Item Value Reference Range Interpretation Comments FERRITIN (test code = LUCIUS) 1439 ng/mL 8-388 H C REACTIVE [id number] 20:27:00* Test Item Value Reference Range Interpretation Comments C REACTIVE PROTEIN (test code = CRP) 12.40 mg/dL 0-0.3 H COVID 19 INHOUSE [id number] 18:45:00* Test Item Value Reference Range Interpretation Comments COVID 19 INHOUSE AG (test code = [id number]) POSITIVE BASIC METABOLIC [id number] 18:45:00* Test Item Value Reference Range Interpretation Comments SODIUM (test code = NA) 139 mmol/L 136-145 N POTASSIUM (test code = K) 3.5 mmol/L 3.5-5.1 N CHLORIDE (test code = CL) 103.0 mmol/L 98-107 N CARBON DIOXIDE (test code = CO2) 23.0 mmol/L 21-32 N ANION GAP (test code = GAP) 16.5 10-20 N GLUCOSE (test code = GLU) 63 mg/dL 74-106 L BLOOD UREA NITROGEN (test code = BUN) 14 mg/dL 7-18 N GLOMERULAR FILTRATION RATE (test code = GFR) > 60 mL/min >=60 Estimated GFR by using Modified MDRD formula.Chronic kidney disease is defined as either kidney damageor GFR <60 mL/min/1.73 m2 for >3 months. CREATININE (test code = CREAT) 0.80 mg/dL 0.7-1.3 N BUN/CREATININE RATIO (test code = BUN/CREA) 17.9 10-20 N CALCIUM (test code = CA) 8.6 mg/dL 8.5-10.1 N HEPATIC FUNCTION [id number] 18:45:00* Test Item Value Reference Range Interpretation Comments TOTAL PROTEIN (test code = PROT) 7.8 gram/dL 6.4-8.2 N ALBUMIN (test code = ALB) 2.5 g/dL 3.4-5.0 L GLOBULIN (test code = GLOB) 5.3 gram/dL 2.7-4.2 H ALBUMIN/GLOBULIN RATIO (test code = A/G) 0.5 0.75-1.50 L BILIRUBIN TOTAL (test code = BILT) 0.30 mg/dL 0.0-1.0 N BILIRUBIN DIRECT (test code = BILD) 0.10 mg/dL 0.0-0.20 N SGOT/AST (test code = AST) 28 IUnit/L 15-37 N SGPT/ALT (test code = ALT) 16 IUnit/L 12-78 N ALKALINE PHOSPHATASE TOTAL (test code = ALKP) 80 IUnit/L 45-117 N Note change in reference range due to change in reagent. [id number] 18:45:00* Test Item Value Reference Range Interpretation Comments LIPASE (test code = LIP) 217 U/L 73.0-393.0 N [id number] 18:45:00* Test Item Value Reference Range Interpretation Comments TROPONIN-I (test code = TROPI) 0.015 ng/mL 0-0.045 N BASIC METABOLIC [id number] 18:36:00* Test Item Value Reference Range Interpretation Comments SODIUM (test code = NA) 139 mmol/L 136-145 N POTASSIUM (test code = K) 3.5 mmol/L 3.5-5.1 N CHLORIDE (test code = CL) 103.0 mmol/L 98-107 N CARBON DIOXIDE (test code = CO2) mmol/L 21-32 ANION GAP (test code = GAP) 10-20 GLUCOSE (test code = GLU) mg/dL 74-106 BLOOD UREA NITROGEN (test code = BUN) mg/dL 7-18 GLOMERULAR FILTRATION RATE (test code = GFR) mL/min >=60 CREATININE (test code = CREAT) mg/dL 0.7-1.3 BUN/CREATININE RATIO (test code = BUN/CREA) 10-20 CALCIUM (test code = CA) mg/dL 8.5-10.1 HEPATIC FUNCTION [id number] 18:36:00* Test Item Value Reference Range Interpretation Comments TOTAL PROTEIN (test code = PROT) gram/dL 6.4-8.2 ALBUMIN (test code = ALB) g/dL 3.4-5.0 GLOBULIN (test code = GLOB) gram/dL 2.7-4.2 ALBUMIN/GLOBULIN RATIO (test code = A/G) 0.75-1.50 BILIRUBIN TOTAL (test code = BILT) mg/dL 0.0-1.0 BILIRUBIN DIRECT (test code = BILD) mg/dL 0.0-0.20 SGOT/AST (test code = AST) IUnit/L 15-37 SGPT/ALT (test code = ALT) IUnit/L 12-78 ALKALINE PHOSPHATASE TOTAL (test code = ALKP) IUnit/L 45-117 [id number] 18:36:00* Test Item Value Reference Range Interpretation Comments LIPASE (test code = LIP) U/L 73.0-393.0 [id number] 18:36:00* Test Item Value Reference Range Interpretation Comments TROPONIN-I (test code = TROPI) ng/mL 0-0.045 URINALYSIS [id number] 18:26:00* Test Item Value Reference Range Interpretation Comments UA COLOR (test code = COLU) YELLOW YELLOW UA APPEARANCE (test code = APPU) TURBID CLEAR A UA GLUCOSE DIPSTICK (test code = DGLUU) NEGATIVE mg/dL NEGATIVE UA BILIRUBIN DIPSTICK (test code = BILU) NEGATIVE mg/dL NEGATIVE UA KETONE DIPSTICK (test code = KETU) 60 (2+) mg/dL NEGATIVE A UA SPECIFIC GRAVITY (test code = SGU) 1.017 1.001-1.035 UA BLOOD DIPSTICK (test code = SUSI) 0.5 mg/dL (2+) mg/dL NEGATIVE A UA PH DIPSTICK (test code = MELINDA) 6.0 5.0-8.0 UA PROTEIN DIPSTICK (test code = PROU) 300 (3+) mg/dL NEGATIVE A UA UROBILINIOGEN DIPSTICK (test code = URO) Normal mg/dL NEGATIVE UA NITRITE DIPSTICK (test code = MARIAMA) NEGATIVE NEGATIVE UA LEUKOCYTE ESTERASE W REFLEX (test code = LEUUR) 500 Rasheed/u L (3+) Rasheed/uL NEGATIVE A UA WBC (test code = WBCU) >200 per HPF 0-5 A UA RBC (test code = RBCU) 151-200 #/HPF 0-5 UA WBC CLUMPS (test code = WBCUCL) >10 /HPF NONE A UA EPITHELIAL CELLS (test code = EPIU) FEW per HPF FEW UA BACTERIA (test code = BACU) MANY #/HPF NONE A UA MUCUS (test code = MUCU) MODERATE #/LPF FEW A UA YEAST (test code = YEASTU) MANY #/HPF NONE A Urine Source? Clean Catch- XR CHEST 1 [id number] 18:18:00 FAX: Faustino Phelan DO [phone] [place]: B St: [facility] FAX: Nicole Farah DO Name: XOCHILT EPSTEIN [facility] : 1940 Age/S: 78/M Thiago Jeffery Unit #: [id number] Loc: [place] [address] Phys: Nicole Farah Acct: [id number] Dis Date: Status: REG ER PHONE #: [phone] Exam Date: 11/14/20191807 FAX #: [phone] Reason: WEAKNESS EXAMS: CPT CODE: [id number] XR CHEST 1 V 25613 HISTORY: Failure to thrive. COMPARISON: December 06, 2018. Location: . No acute infiltrates, effusion or congestion is noted. Dependent changes. Mild cardiomegaly. Elevated right hemidiaphragm. IMPRESSION: No acute inf iltrates, effusion or congestion. at 181 Reported and signed by: Bernarda David M.D. CC: Faustino Ramirez; Pham Farah DO Technologist: ALEXANDRA ROSALES RT(Igor) Trnscrd Date/Time/By: 11/14/2019 (1817) : By: [email or web address] O rig Print D/T: S: 11/14/2019 (1820) PAGE 1 Signed Report CBC W/O [id number] 18:17:00* Test Item Value Reference Range Interpretation Comments WHITE BLOOD CELL (test code = WBC) 7.0 K/mm3 4.5-12.5 N RED BLOOD CELL (test code = RBC) 3.44 mill/mm3 4.0-5.8 L HEMOGLOBIN (test code = HGB) 10.0 gram/dL 13.0-17.5 L HEMATOCRIT (test code = HCT) 31.9 % 42.0-52.0 L MEAN CELL VOLUME (test code = MCV) 92.7 fL 80-98 N MEAN CELL HGB (test code = MCH) 29.1 picogram 27.0-33.0 N MEAN CELL HGB CONCETRATION (test code = MCHC) 31.3 gram/dL 33.0-36. 0 L RED CELL DISTRIBUTION WIDTH (test code = RDW) 12.8 % 11.6-16. 2 N PLATELET COUNT (test code = PLT) 360 K/mm3 150-450 N MEAN PLATELET VOLUME (test code = MPV) 9.4 fL 6.7-11.0 N [id number] 11:40:00* Test Item Value Reference Range Interpretation Comments GLUBED (test code = GLUBED) 153 mg/dL 74-106 H Performed by certified photogravure press operator at [facility] [id number] 07:44:00* Test Item Value Reference Range Interpretation Comments GLUBED (test code = GLUBED) 67 mg/dL 74-106 L Performed by certified photogravure press operator at [facility] BASIC METABOLIC [id number] 06:10:00* Test Item Value Reference Range Interpretation Comments SODIUM (test code = NA) 142 mmol/L 136-145 N POTASSIUM (test code = K) 3.5 mmol/L 3.5-5.1 N CHLORIDE (test code = CL) 112.0 mmol/L 98-107 H CARBON DIOXIDE (test code = CO2) 21.0 mmol/L 21-32 N ANION GAP (test code = GAP) 12.5 10-20 N GLUCOSE (test code = GLU) 67 mg/dL 74-106 L BLOOD UREA NITROGEN (test code = BUN) 18 mg/dL 7-18 N GLOMERULAR FILTRATION RATE (test code = GFR) > 60 mL/min >=60 Estimated GFR by using Modified MDRD formula.Chronic kidney disease is defined as either kidney damageor GFR <60 mL/min/1.73 m2 for >3 months. CREATININE (test code = CREAT) 0.80 mg/dL 0.7-1.3 N BUN/CREATININE RATIO (test code = BUN/CREA) 23.7 10-20 H CALCIUM (test code = CA) 7.9 mg/dL 8.5-10.1 L CBC W/AUTO [id number] 05:57:00* Test Item Value Reference Range Interpretation Comments WHITE BLOOD CELL (test code = WBC) 5.3 K/mm3 4.5-12.5 N RED BLOOD CELL (test code = RBC) 3.44 mill/mm3 4.0-5.8 L HEMOGLOBIN (test code = HGB) 9.9 gram/dL 13.0-17.5 L HEMATOCRIT (test code = HCT) 32.4 % 42.0-52.0 L MEAN CELL VOLUME (test code = MCV) 94.2 fL 80-98 N MEAN CELL HGB (test code = MCH) 28.8 picogram 27.0-33.0 N MEAN CELL HGB CONCETRATION (test code = MCHC) 30.6 gram/dL 33.0-36. 0 L RED CELL DISTRIBUTION WIDTH (test code = RDW) 12.8 % 11.6-16. 2 N RED CELL DISTRIBUTION WIDTH SD (test code = RDW-SD) 43.9 fL 37 .0-51.0 N PLATELET COUNT (test code = PLT) 228 K/mm3 150-450 N MEAN PLATELET VOLUME (test code = MPV) 9.4 fL 6.7-11.0 N NEUTROPHIL % (test code = NT%) 69.5 % 39.0-69.0 H IMMATURE GRANULOCYTE % (test code = IG%) 2.3 % 0.0-5.0 N LYMPHOCYTE % (test code = LY%) 19.7 % 25.0-55.0 L MONOCYTE % (test code = MO%) 7.9 % 0.0-10.0 N EOSINOPHIL % (test code = EO%) 0.0 % 0.0-5.0 N BASOPHIL % (test code = BA%) 0.6 % 0.0-1.0 N NUCLEATED RBC % (test code = NRBC%) 0.0 % 0-0 N NEUTROPHIL # (test code = NT#) 3.68 K/mm3 1.8-7.7 N IMMATURE GRANULOCYTE # (test code = IG#) 0.12 x10 3/uL 0-0.03 H LYMPHOCYTE # (test code = LY#) 1.04 K/mm3 1.0-5.0 N MONOCYTE # (test code = MO#) 0.42 K/mm3 0-0.8 N EOSINOPHIL # (test code = EO#) 0.00 K/mm3 0.0-0.5 N BASOPHIL # (test code = BA#) 0.03 K/mm3 0.0-0.2 N NUCLEATED RBC # (test code = NRBC#) 0.00 K/mm3 0.0-0.1 N MANUAL DIFF REQUIRED (test code = MDIFF) NO BASIC METABOLIC [id number] 05:53:00* Test Item Value Reference Range Interpretation Comments SODIUM (test code = NA) 142 mmol/L 136-145 N POTASSIUM (test code = K) 3.5 mmol/L 3.5-5.1 N CHLORIDE (test code = CL) 112.0 mmol/L 98-107 H CARBON DIOXIDE (test code = CO2) mmol/L 21-32 ANION GAP (test code = GAP) 10-20 GLUCOSE (test code = GLU) mg/dL 74-106 BLOOD UREA NITROGEN (test code = BUN) mg/dL 7-18 GLOMERULAR FILTRATION RATE (test code = GFR) mL/min >=60 CREATININE (test code = CREAT) mg/dL 0.7-1.3 BUN/CREATININE RATIO (test code = BUN/CREA) 10-20 CALCIUM (test code = CA) mg/dL 8.5-10.1 [id number] 20:55:00* Test Item Value Reference Range Interpretation Comments GLUBED (test code = GLUBED) 73 mg/dL 74-106 L Performed by certified photogravure press operator at [facility] [id number] 16:42:00* Test Item Value Reference Range Interpretation Comments GLUBED (test code = GLUBED) 108 mg/dL 74-106 H Performed by certified photogravure press operator at [facility] [id number] 11:02:00* Test Item Value Reference Range Interpretation Comments GLUBED (test code = GLUBED) 203 mg/dL 74-106 H Performed by certified photogravure press operator at [facility] [id number] 08:45:00* Test Item Value Reference Range Interpretation Comments GLUBED (test code = GLUBED) 73 mg/dL 74-106 L Performed by certified photogravure press operator at [facility] [id number] 06:31:00* Test Item Value Reference Range Interpretation Comments GLUBED (test code = GLUBED) 72 mg/dL 74-106 L Performed by certified photogravure press operator at [facility] [id number] 23:48:00* Test Item Value Reference Range Interpretation Comments GLUBED (test code = GLUBED) 140 mg/dL 74-106 H Performed by certified photogravure press operator at [facility] - XR ABDOMEN AP 1 [id number] 22:00:00 FAX: Miquel Jeffers MD [phone] [place]: St: ADM FAX: Stpean Nice NP [phone] FAX: Faustino Phelan DO [phone] Name: XOCHILT EPSTEIN [facility] : 1940 Age/S: 78/M [address] Unit #: [id number] Loc: V.4013 [place] [address] Phys: Stepan Nice NP Acct: [id number] Dis Date: Status: ADM IN ONE #: [phone] Exam Date: 11/08/20192145 FAX #: [phone] Reason: constipation EXAMS: CPT CODE: [id number] XR ABDOMEN AP 1 V 08500 HISTORY: cons tipation, UTI TECHNIQUE: AP abdomen x-ray COMPARISO N: CT 11/05/19 FINDINGS: No significant fecal retention. Nonobstr ucted bowel gas pattern. No intra-abdominal mass effect. Aortoiliac athero sclerotic vascular calcification. Degenerative changes of the spine and hi ps. IMPRESSION: No significant fecal reten tion. Nonobstructive bowel gas pattern. LO CATION: LP at 2200 Reported and signed by: Tresa schwartz D.O. CC: Miquel Jeffers MD; Stepan Nice NP; Faustino Dent Technologist: Jamila CONLEY(R); Mari Albarado(R) Trn scrd Date/Time/By: 11/08/2019 (2200) : By: [email or web address] PAGE 1 Signed Report [id number] 20:21:00* Test Item Value Reference Range Interpretation Comments GLUBED (test code = GLUBED) 62 mg/dL 74-106 L Performed by certified photogravure press operator at [facility] [id number] 17:25:00* Test Item Value Reference Range Interpretation Comments GLUBED (test code = GLUBED) 65 mg/dL 74-106 L Performed by certified photogravure press operator at [facility] [id number] 16:39:00* Test Item Value Reference Range Interpretation Comments GLUBED (test code = GLUBED) 67 mg/dL 74-106 L Performed by certified photogravure press operator at [facility] [id number] 11:41:00* Test Item Value Reference Range Interpretation Comments GLUBED (test code = GLUBED) 81 mg/dL 74-106 N Performed by certified photogravure press operator at [facility] [id number] 09:24:00* Test Item Value Reference Range Interpretation Comments GLUBED (test code = GLUBED) 66 mg/dL 74-106 L Performed by certified photogravure press operator at [facility] [id number] 08:14:00* Test Item Value Reference Range Interpretation Comments GLUBED (test code = GLUBED) 54 mg/dL 74-106 L Performed by certified photogravure press operator at [facility] BLOOD UREA [id number] 06:03:00* Test Item Value Reference Range Interpretation Comments BLOOD UREA NITROGEN (test code = BUN) 35 mg/dL 7-18 H CREATININE W ESTIMATED [id number] 06:03:00* Test Item Value Reference Range Interpretation Comments GLOMERULAR FILTRATION RATE (test code = GFR) 53 mL/min >=60 Estimated GFR by using Modified MDRD formula.Chronic kidney disease is defined as either kidney damageor GFR <60 mL/min/1.73 m2 for >3 months. CREATININE (test code = CREAT) 1.30 mg/dL 0.7-1.3 N [id number] 20:30:00* Test Item Value Reference Range Interpretation Comments GLUBED (test code = GLUBED) 81 mg/dL 74-106 N Performed by certified photogravure press operator at [facility] [id number] 16:33:00* Test Item Value Reference Range Interpretation Comments GLUBED (test code = GLUBED) 100 mg/dL 74-106 N Performed by certified photogravure press operator at [facility] BASIC METABOLIC [id number] 13:55:00* Test Item Value Reference Range Interpretation Comments SODIUM (test code = NA) 141 mmol/L 136-145 N POTASSIUM (test code = K) 3.7 mmol/L 3.5-5.1 N CHLORIDE (test code = CL) 111.0 mmol/L 98-107 H CARBON DIOXIDE (test code = CO2) 21.0 mmol/L 21-32 N ANION GAP (test code = GAP) 12.7 10-20 N GLUCOSE (test code = GLU) 124 mg/dL 74-106 H BLOOD UREA NITROGEN (test code = BUN) 43 mg/dL 7-18 H GLOMERULAR FILTRATION RATE (test code = GFR) 42 mL/min >=60 Estimated GFR by using Modified MDRD formula.Chronic kidney disease is defined as either kidney damageor GFR <60 mL/min/1.73 m2 for >3 months. CREATININE (test code = CREAT) 1.60 mg/dL 0.7-1.3 H BUN/CREATININE RATIO (test code = BUN/CREA) 27.7 10-20 H CALCIUM (test code = CA) 8.0 mg/dL 8.5-10.1 L BASIC METABOLIC [id number] 13:51:00* Test Item Value Reference Range Interpretation Comments SODIUM (test code = NA) 141 mmol/L 136-145 N POTASSIUM (test code = K) 3.7 mmol/L 3.5-5.1 N CHLORIDE (test code = CL) 111.0 mmol/L 98-107 H CARBON DIOXIDE (test code = CO2) mmol/L 21-32 ANION GAP (test code = GAP) 10-20 GLUCOSE (test code = GLU) mg/dL 74-106 BLOOD UREA NITROGEN (test code = BUN) mg/dL 7-18 GLOMERULAR FILTRATION RATE (test code = GFR) mL/min >=60 CREATININE (test code = CREAT) mg/dL 0.7-1.3 BUN/CREATININE RATIO (test code = BUN/CREA) 10-20 CALCIUM (test code = CA) mg/dL 8.5-10.1 CBC W/AUTO [id number] 13:35:00* Test Item Value Reference Range Interpretation Comments WHITE BLOOD CELL (test code = WBC) 11.5 K/mm3 4.5-12.5 N RED BLOOD CELL (test code = RBC) 2.93 mill/mm3 4.0-5.8 L HEMOGLOBIN (test code = HGB) 8.8 gram/dL 13.0-17.5 L HEMATOCRIT (test code = HCT) 27.6 % 42.0-52.0 L MEAN CELL VOLUME (test code = MCV) 94.2 fL 80-98 N MEAN CELL HGB (test code = MCH) 30.0 picogram 27.0-33.0 N MEAN CELL HGB CONCETRATION (test code = MCHC) 31.9 gram/dL 33.0-36. 0 L RED CELL DISTRIBUTION WIDTH (test code = RDW) 13.2 % 11.6-16. 2 N RED CELL DISTRIBUTION WIDTH SD (test code = RDW-SD) 45.2 fL 37 .0-51.0 N PLATELET COUNT (test code = PLT) 229 K/mm3 150-450 RESULT VERIFIED BY REPEAT ANALYSIS MEAN PLATELET VOLUME (test code = MPV) 9.5 fL 6.7-11.0 N NEUTROPHIL % (test code = NT%) 93.3 % 39.0-69.0 H IMMATURE GRANULOCYTE % (test code = IG%) 0.5 % 0.0-5.0 N LYMPHOCYTE % (test code = LY%) 4.2 % 25.0-55.0 L MONOCYTE % (test code = MO%) 1.9 % 0.0-10.0 N EOSINOPHIL % (test code = EO%) 0.0 % 0.0-5.0 N BASOPHIL % (test code = BA%) 0.1 % 0.0-1.0 N NUCLEATED RBC % (test code = NRBC%) 0.0 % 0-0 N NEUTROPHIL # (test code = NT#) 10.72 K/mm3 1.8-7.7 H IMMATURE GRANULOCYTE # (test code = IG#) 0.06 x10 3/uL 0-0.03 H LYMPHOCYTE # (test code = LY#) 0.48 K/mm3 1.0-5.0 L MONOCYTE # (test code = MO#) 0.22 K/mm3 0-0.8 N EOSINOPHIL # (test code = EO#) 0.00 K/mm3 0.0-0.5 N BASOPHIL # (test code = BA#) 0.01 K/mm3 0.0-0.2 N NUCLEATED RBC # (test code = NRBC#) 0.00 K/mm3 0.0-0.1 N [id number] 12:15:00* Test Item Value Reference Range Interpretation Comments GLUBED (test code = GLUBED) 104 mg/dL 74-106 N Performed by certified photogravure press operator at [facility] [id number] 08:47:00* Test Item Value Reference Range Interpretation Comments GLUBED (test code = GLUBED) 88 mg/dL 74-106 N Performed by certified photogravure press operator at [facility] [id number] 20:10:00* Test Item Value Reference Range Interpretation Comments GLUBED (test code = GLUBED) 76 mg/dL 74-106 N Performed by certified photogravure press operator at [facility] [id number] 16:39:00* Test Item Value Reference Range Interpretation Comments GLUBED (test code = GLUBED) 99 mg/dL 74-106 N Performed by certified photogravure press operator [facility]~ BASIC METABOLIC [id number] 14:08:00* Test Item Value Reference Range Interpretation Comments SODIUM (test code = NA) 141 mmol/L 136-145 N POTASSIUM (test code = K) 4.1 mmol/L 3.5-5.1 N CHLORIDE (test code = CL) 108.0 mmol/L 98-107 H CARBON DIOXIDE (test code = CO2) 21.0 mmol/L 21-32 N ANION GAP (test code = GAP) 16.1 10-20 N GLUCOSE (test code = GLU) 133 mg/dL 74-106 H BLOOD UREA NITROGEN (test code = BUN) 43 mg/dL 7-18 H RESULT VERIFIED BY REPEAT ANALYSIS GLOMERULAR FILTRATION RATE (test code = GFR) 39 mL/min >=60 Estimated GFR by using Modified MDRD formula.Chronic kidney disease is defined as either kidney damageor GFR <60 mL/min/1.73 m2 for >3 months. CREATININE (test code = CREAT) 1.70 mg/dL 0.7-1.3 H BUN/CREATININE RATIO (test code = BUN/CREA) 25.3 10-20 H CALCIUM (test code = CA) 8.2 mg/dL 8.5-10.1 L CBC W/AUTO [id number] 13:03:00* Test Item Value Reference Range Interpretation Comments WHITE BLOOD CELL (test code = WBC) 22.2 K/mm3 4.5-12.5 H RED BLOOD CELL (test code = RBC) 2.87 mill/mm3 4.0-5.8 L HEMOGLOBIN (test code = HGB) 8.6 gram/dL 13.0-17.5 L RESULT VERIFIED BY REPEAT ANALYSIS HEMATOCRIT (test code = HCT) 27.9 % 42.0-52.0 L MEAN CELL VOLUME (test code = MCV) 97.2 fL 80-98 N MEAN CELL HGB (test code = MCH) 30.0 picogram 27.0-33.0 N MEAN CELL HGB CONCETRATION (test code = MCHC) 30.8 gram/dL 33.0-36. 0 L RED CELL DISTRIBUTION WIDTH (test code = RDW) 13.2 % 11.6-16. 2 N RED CELL DISTRIBUTION WIDTH SD (test code = RDW-SD) 47.3 fL 37 .0-51.0 N PLATELET COUNT (test code = PLT) 285 K/mm3 150-450 N MEAN PLATELET VOLUME (test code = MPV) 9.4 fL 6.7-11.0 N NEUTROPHIL % (test code = NT%) 90.1 % 39.0-69.0 H IMMATURE GRANULOCYTE % (test code = IG%) 0.5 % 0.0-5.0 N LYMPHOCYTE % (test code = LY%) 5.1 % 25.0-55.0 L MONOCYTE % (test code = MO%) 4.1 % 0.0-10.0 N EOSINOPHIL % (test code = EO%) 0.0 % 0.0-5.0 N BASOPHIL % (test code = BA%) 0.2 % 0.0-1.0 N NUCLEATED RBC % (test code = NRBC%) 0.0 % 0-0 N NEUTROPHIL # (test code = NT#) 19.95 K/mm3 1.8-7.7 H IMMATURE GRANULOCYTE # (test code = IG#) 0.11 x10 3/uL 0-0.03 H LYMPHOCYTE # (test code = LY#) 1.14 K/mm3 1.0-5.0 N MONOCYTE # (test code = MO#) 0.90 K/mm3 0-0.8 H EOSINOPHIL # (test code = EO#) 0.00 K/mm3 0.0-0.5 N BASOPHIL # (test code = BA#) 0.05 K/mm3 0.0-0.2 N NUCLEATED RBC # (test code = NRBC#) 0.00 K/mm3 0.0-0.1 N MANUAL DIFF REQUIRED (test code = MDIFF) NO [id number] 12:39:00* Test Item Value Reference Range Interpretation Comments GLUBED (test code = GLUBED) 127 mg/dL 74-106 H Performed by certified photogravure press operator at [facility] [id number] 07:43:00* Test Item Value Reference Range Interpretation Comments GLUBED (test code = GLUBED) 160 mg/dL 74-106 H Performed by certified photogravure press operator at [facility] URINALYSIS [id number] 18:29:00* Test Item Value Reference Range Interpretation Comments UA COLOR (test code = COLU) YELLOW YELLOW UA APPEARANCE (test code = APPU) TURBID CLEAR A UA GLUCOSE DIPSTICK (test code = DGLUU) NEGATIVE mg/dL NEGATIVE UA BILIRUBIN DIPSTICK (test code = BILU) NEGATIVE mg/dL NEGATIVE UA KETONE DIPSTICK (test code = KETU) NEGATIVE mg/dL NEGATIVE UA SPECIFIC GRAVITY (test code = SGU) 1.014 1.001-1.035 UA BLOOD DIPSTICK (test code = SUSI) 0.06 mg/dL (1+) mg/dL NEGATIVE A UA PH DIPSTICK (test code = MELINDA) 8.0 5.0-8.0 UA PROTEIN DIPSTICK (test code = PROU) 100 (2+) mg/dL NEGATIVE A UA UROBILINIOGEN DIPSTICK (test code = URO) Normal mg/dL NEGATIVE UA NITRITE DIPSTICK (test code = MARIAMA) NEGATIVE NEGATIVE UA LEUKOCYTE ESTERASE W REFLEX (test code = LEUUR) 500 Rasheed/u L (3+) Rasheed/uL NEGATIVE A UA WBC (test code = WBCU) 51-100 per HPF 0-5 A UA RBC (test code = RBCU) 11-20 #/HPF 0-5 A UA EPITHELIAL CELLS (test code = EPIU) None seen per HPF FEW UA BACTERIA (test code = BACU) MANY #/HPF NONE A UA TRIPLE PHOSPHATE CRYSTALS (test code = TRPHOSU) MODERATE #/HPF N ONE A UA MUCUS (test code = MUCU) FEW #/LPF FEW Urine Source? Clean Catch- CT ABD PELVIS [id number] 18:03:00 Name: XOCHILT EPSTEIN [facility] : 1940 Age/S: 78 / M [address] Unit #: [id number] Loc: [place] [address] Phys: Elvis Wheeler MD Acct: [id number] Di s Date: Status: REG ER PHONE #: [phone] Exam Date: 11/05/2019 1700 FAX #: Reason: severe pain, swelling around suprapubic site EXAMS: CPT CODE: [id number] CT ABD PELVIS W/CONT [id number] EXAM: CT of the abdomen a nd pelvis with contrast; INFORMATION: Painful swelling around supr apubic catheter; TECHNIQUE AND FINDINGS: CT dose reduction p rotocol; 5 mm cuts through the abdomen and pelvis during and after intrave nous infusion of contrast material. A suprapubic catheter is seen wi thin the urinary bladder. The bladder is moderately distended. Small air bubbles are seen anteriorly within the urinary bladder. There is mild stranding of subcutaneous soft tissues around the tube but no evidence of abscess formation. Liver, spleen and pancreas of normal size and shape; no focal lesions. Status post cholecystectomy. No biliary dilatation. Adrenal glands and kidneys unremarkable. Prominent extrarenal pelvis bilaterally without evidence of dilatation of calyces or of the ureters. No acute bowel abnormalities. Rectosigmoid stool impaction. E xtensive calcifications of the abdominal aorta, visceral and iliofemoral a rteries. Lung bases are clear. Status post median sternotomy. Extensive calcifications of the left coronary artery. IMPRESSION: 1. Well-positioned suprapubic catheter; mild stranding around the ca theter is consistent with scarring but there is no evidence of an absces s formation of the anterior abdominal wall. 2. No acute abdominal or pel charito abnormalities. 3. Rectosigmoid stool impaction. 4. Prominent dilated extrarenal pelvis bilaterally. This may be an anatomic variance or a mild form of UPJ obstruction. 5. Extensive vascular calcifications. Location code: [facility] 1 Electronically Sig harmony by David Liao on 11/05/2019 at 1803 Reported and signed by: Guille Liao M.D. PAGE 1 Signed Report (CONTINUED) Name: XOCHILT EPSTEIN [facility] : 1940 Age/S: 78 / M [address] Unit #: [id number] Loc: [place], [place] [address] Phys: Igor Wheeler MD Acct: [id number] Dis Date: Status: REG ER PHONE #: [phone] Exam Date: 11/05/2019 1700 FAX #: [phone] Reason: severe pain, swelling around suprapubic site EXAMS: CPT CODE: [id number] CT ABD PELVIS W/CONT 12282 <Continued> CC: Faustino Ramirez; Prasanna Wheeler MD Technologist:Elissa Rodriguez RT(R); TELLY Zurita CTDI: DLP: Trnscb Date/Time: 11/05/2019 (1802) [email or web address] Orig Print D/T: S: 11/05/2019 (1806) PAGE 2 Signed Report BASIC METABOLIC [id number] 16:16:00* Test Item Value Reference Range Interpretation Comments SODIUM (test code = NA) 141 mmol/L 136-145 N POTASSIUM (test code = K) 4.1 mmol/L 3.5-5.1 N CHLORIDE (test code = CL) 109.0 mmol/L 98-107 H CARBON DIOXIDE (test code = CO2) 22.0 mmol/L 21-32 N ANION GAP (test code = GAP) 14.1 10-20 N GLUCOSE (test code = GLU) 166 mg/dL 74-106 H BLOOD UREA NITROGEN (test code = BUN) 24 mg/dL 7-18 H GLOMERULAR FILTRATION RATE (test code = GFR) > 60 mL/min >=60 Estimated GFR by using Modified MDRD formula.Chronic kidney disease is defined as either kidney damageor GFR <60 mL/min/1.73 m2 for >3 months. CREATININE (test code = CREAT) 0.90 mg/dL 0.7-1.3 N BUN/CREATININE RATIO (test code = BUN/CREA) 26.3 10-20 H CALCIUM (test code = CA) 8.4 mg/dL 8.5-10.1 L HEPATIC FUNCTION [id number] 16:16:00* Test Item Value Reference Range Interpretation Comments TOTAL PROTEIN (test code = PROT) 7.9 gram/dL 6.4-8.2 N ALBUMIN (test code = ALB) 3.2 g/dL 3.4-5.0 L GLOBULIN (test code = GLOB) 4.7 gram/dL 2.7-4.2 H ALBUMIN/GLOBULIN RATIO (test code = A/G) 0.7 0.75-1.50 L BILIRUBIN TOTAL (test code = BILT) 0.20 mg/dL 0.0-1.0 N BILIRUBIN DIRECT (test code = BILD) 0.09 mg/dL 0.0-0.20 N SGOT/AST (test code = AST) 11 IUnit/L 15-37 L SGPT/ALT (test code = ALT) 12 IUnit/L 12-78 N ALKALINE PHOSPHATASE TOTAL (test code = ALKP) 130 IUnit/L 45-117 H Note change in reference range due to change in reagent. [id number] 16:16:00* Test Item Value Reference Range Interpretation Comments LIPASE (test code = LIP) 176 U/L 73.0-393.0 N [id number] 16:16:00* Test Item Value Reference Range Interpretation Comments TROPONIN-I (test code = TROPI) <0.015 ng/mL 0-0.045 N BASIC METABOLIC [id number] 16:06:00* Test Item Value Reference Range Interpretation Comments SODIUM (test code = NA) 141 mmol/L 136-145 N POTASSIUM (test code = K) 4.1 mmol/L 3.5-5.1 N CHLORIDE (test code = CL) 109.0 mmol/L 98-107 H CARBON DIOXIDE (test code = CO2) mmol/L 21-32 ANION GAP (test code = GAP) 10-20 GLUCOSE (test code = GLU) mg/dL 74-106 BLOOD UREA NITROGEN (test code = BUN) mg/dL 7-18 GLOMERULAR FILTRATION RATE (test code = GFR) mL/min >=60 CREATININE (test code = CREAT) mg/dL 0.7-1.3 BUN/CREATININE RATIO (test code = BUN/CREA) 10-20 CALCIUM (test code = CA) mg/dL 8.5-10.1 HEPATIC FUNCTION [id number] 16:06:00* Test Item Value Reference Range Interpretation Comments TOTAL PROTEIN (test code = PROT) gram/dL 6.4-8.2 ALBUMIN (test code = ALB) g/dL 3.4-5.0 GLOBULIN (test code = GLOB) gram/dL 2.7-4.2 ALBUMIN/GLOBULIN RATIO (test code = A/G) 0.75-1.50 BILIRUBIN TOTAL (test code = BILT) mg/dL 0.0-1.0 BILIRUBIN DIRECT (test code = BILD) mg/dL 0.0-0.20 SGOT/AST (test code = AST) IUnit/L 15-37 SGPT/ALT (test code = ALT) IUnit/L 12-78 ALKALINE PHOSPHATASE TOTAL (test code = ALKP) IUnit/L 45-117 [id number] 16:06:00* Test Item Value Reference Range Interpretation Comments LIPASE (test code = LIP) U/L 73.0-393.0 [id number] 16:06:00* Test Item Value Reference Range Interpretation Comments TROPONIN-I (test code = TROPI) ng/mL 0-0.045 CBC W/O [id number] 15:56:00* Test Item Value Reference Range Interpretation Comments WHITE BLOOD CELL (test code = WBC) 14.7 K/mm3 4.5-12.5 H RED BLOOD CELL (test code = RBC) 3.73 mill/mm3 4.0-5.8 L HEMOGLOBIN (test code = HGB) 11.1 gram/dL 13.0-17.5 L HEMATOCRIT (test code = HCT) 35.4 % 42.0-52.0 L MEAN CELL VOLUME (test code = MCV) 94.9 fL 80-98 N MEAN CELL HGB (test code = MCH) 29.8 picogram 27.0-33.0 N MEAN CELL HGB CONCETRATION (test code = MCHC) 31.4 gram/dL 33.0-36. 0 L RED CELL DISTRIBUTION WIDTH (test code = RDW) 12.7 % 11.6-16. 2 N PLATELET COUNT (test code = PLT) 324 K/mm3 150-450 N MEAN PLATELET VOLUME (test code = MPV) 9.5 fL 6.7-11.0 N [id number] 12:59:00* Test Item Value Reference Range Interpretation Comments GLUBED (test code = GLUBED) 139 mg/dL 74-106 H Performed by certified photogravure press operator at [facility] [id number] 06:01:00* Test Item Value Reference Range Interpretation Comments GLUBED (test code = GLUBED) 110 mg/dL 74-106 H Performed by certified photogravure press operator at [facility] BASIC METABOLIC [id number] 04:46:00* Test Item Value Reference Range Interpretation Comments SODIUM (test code = NA) 138 mmol/L 136-145 N POTASSIUM (test code = K) 4.5 mmol/L 3.5-5.1 N CHLORIDE (test code = CL) 106.0 mmol/L 98-107 N CARBON DIOXIDE (test code = CO2) 26.0 mmol/L 21-32 N ANION GAP (test code = GAP) 10.5 10-20 N GLUCOSE (test code = GLU) 148 mg/dL 74-106 H BLOOD UREA NITROGEN (test code = BUN) 23 mg/dL 7-18 H GLOMERULAR FILTRATION RATE (test code = GFR) > 60 mL/min >=60 Estimated GFR by using Modified MDRD formula.Chronic kidney disease is defined as either kidney damageor GFR <60 mL/min/1.73 m2 for >3 months. CREATININE (test code = CREAT) 1.10 mg/dL 0.7-1.3 N BUN/CREATININE RATIO (test code = BUN/CREA) 20.9 10-20 H CALCIUM (test code = CA) 8.7 mg/dL 8.5-10.1 N BASIC METABOLIC [id number] 04:40:00* Test Item Value Reference Range Interpretation Comments SODIUM (test code = NA) 138 mmol/L 136-145 N POTASSIUM (test code = K) 4.5 mmol/L 3.5-5.1 N CHLORIDE (test code = CL) 106.0 mmol/L 98-107 N CARBON DIOXIDE (test code = CO2) mmol/L 21-32 ANION GAP (test code = GAP) 10-20 GLUCOSE (test code = GLU) mg/dL 74-106 BLOOD UREA NITROGEN (test code = BUN) mg/dL 7-18 GLOMERULAR FILTRATION RATE (test code = GFR) mL/min >=60 CREATININE (test code = CREAT) mg/dL 0.7-1.3 BUN/CREATININE RATIO (test code = BUN/CREA) 10-20 CALCIUM (test code = CA) mg/dL 8.5-10.1 [id number] 20:51:00* Test Item Value Reference Range Interpretation Comments GLUBED (test code = GLUBED) 167 mg/dL 74-106 H Performed by certified photogravure press operator at [facility] BASIC METABOLIC [id number] 20:07:00* Test Item Value Reference Range Interpretation Comments SODIUM (test code = NA) 138 mmol/L 136-145 N POTASSIUM (test code = K) 4.6 mmol/L 3.5-5.1 N CHLORIDE (test code = CL) 109.0 mmol/L 98-107 H CARBON DIOXIDE (test code = CO2) 24.0 mmol/L 21-32 N ANION GAP (test code = GAP) 9.6 10-20 L GLUCOSE (test code = GLU) 94 mg/dL 74-106 N BLOOD UREA NITROGEN (test code = BUN) 28 mg/dL 7-18 H GLOMERULAR FILTRATION RATE (test code = GFR) > 60 mL/min >=60 Estimated GFR by using Modified MDRD formula.Chronic kidney disease is defined as either kidney damageor GFR <60 mL/min/1.73 m2 for >3 months. CREATININE (test code = CREAT) 0.90 mg/dL 0.7-1.3 N BUN/CREATININE RATIO (test code = BUN/CREA) 31.1 10-20 H CALCIUM (test code = CA) 8.9 mg/dL 8.5-10.1 N URINALYSIS [id number] 18:32:00* Test Item Value Reference Range Interpretation Comments UA COLOR (test code = COLU) YELLOW YELLOW UA APPEARANCE (test code = APPU) Cloudy CLEAR A UA GLUCOSE DIPSTICK (test code = DGLUU) NEGATIVE mg/dL NEGATIVE UA BILIRUBIN DIPSTICK (test code = BILU) NEGATIVE mg/dL NEGATIVE UA KETONE DIPSTICK (test code = KETU) NEGATIVE mg/dL NEGATIVE UA SPECIFIC GRAVITY (test code = SGU) 1.017 1.001-1.035 UA BLOOD DIPSTICK (test code = SUSI) Negative mg/dL NEGATIVE UA PH DIPSTICK (test code = MELINDA) 7.0 5.0-8.0 UA PROTEIN DIPSTICK (test code = PROU) 50 (1+) mg/dL NEGATIVE A UA UROBILINIOGEN DIPSTICK (test code = URO) Normal mg/dL NEGATIVE UA NITRITE DIPSTICK (test code = MARIAMA) NEGATIVE NEGATIVE UA LEUKOCYTE ESTERASE W REFLEX (test code = LEUUR) 500 Rasheed/u L (3+) Rasheed/uL NEGATIVE A UA WBC (test code = WBCU) 151-200 per HPF 0-5 A UA RBC (test code = RBCU) 11-20 #/HPF 0-5 A UA WBC CLUMPS (test code = WBCUCL) >10 /HPF NONE A UA EPITHELIAL CELLS (test code = EPIU) FEW per HPF FEW UA BACTERIA (test code = BACU) MANY #/HPF NONE A UA CALCIUM OXALATE CRYSTALS (test code = CAOXU) FEW #/HPF NONE A UA HYALINE CAST (test code = HYALU) 3-5 #/LPF 0-5 UA MUCUS (test code = MUCU) FEW #/LPF FEW UA YEAST (test code = YEASTU) FEW #/HPF NONE A Urine Source? Clean CatchBASIC METABOLIC [id number] 16:07:00* Test Item Value Reference Range Interpretation Comments SODIUM (test code = NA) 139 mmol/L 136-145 N POTASSIUM (test code = K) 5.7 mmol/L 3.5-5.1 H CHLORIDE (test code = CL) 108.0 mmol/L 98-107 H CARBON DIOXIDE (test code = CO2) 25.0 mmol/L 21-32 N ANION GAP (test code = GAP) 11.7 10-20 N GLUCOSE (test code = GLU) 125 mg/dL 74-106 H BLOOD UREA NITROGEN (test code = BUN) 28 mg/dL 7-18 H GLOMERULAR FILTRATION RATE (test code = GFR) > 60 mL/min >=60 Estimated GFR by using Modified MDRD formula.Chronic kidney disease is defined as either kidney damageor GFR <60 mL/min/1.73 m2 for >3 months. CREATININE (test code = CREAT) 1.00 mg/dL 0.7-1.3 N BUN/CREATININE RATIO (test code = BUN/CREA) 28.0 10-20 H CALCIUM (test code = CA) 9.2 mg/dL 8.5-10.1 N CBC W/O [id number] 15:53:00* Test Item Value Reference Range Interpretation Comments WHITE BLOOD CELL (test code = WBC) 10.0 K/mm3 4.5-12.5 N RED BLOOD CELL (test code = RBC) 3.85 mill/mm3 4.0-5.8 L HEMOGLOBIN (test code = HGB) 11.3 gram/dL 13.0-17.5 L HEMATOCRIT (test code = HCT) 35.4 % 42.0-52.0 L MEAN CELL VOLUME (test code = MCV) 91.9 fL 80-98 N MEAN CELL HGB (test code = MCH) 29.4 picogram 27.0-33.0 N MEAN CELL HGB CONCETRATION (test code = MCHC) 31.9 gram/dL 33.0-36. 0 L RED CELL DISTRIBUTION WIDTH (test code = RDW) 14.7 % 11.6-16. 2 N PLATELET COUNT (test code = PLT) 356 K/mm3 150-450 N MEAN PLATELET VOLUME (test code = MPV) 9.3 fL 6.7-11.0 N BASIC METABOLIC [id number] 15:18:00* Test Item Value Reference Range Interpretation Comments SODIUM (test code = NA) 138 mmol/L 136-145 N POTASSIUM (test code = K) 4.5 mmol/L 3.5-5.1 N CHLORIDE (test code = CL) 104.0 mmol/L 98-107 N CARBON DIOXIDE (test code = CO2) 27.0 mmol/L 21-32 N ANION GAP (test code = GAP) 11.5 10-20 N GLUCOSE (test code = GLU) 134 mg/dL 74-106 H BLOOD UREA NITROGEN (test code = BUN) 19 mg/dL 7-18 H GLOMERULAR FILTRATION RATE (test code = GFR) > 60 mL/min >=60 Estimated GFR by using Modified MDRD formula.Chronic kidney disease is defined as either kidney damageor GFR <60 mL/min/1.73 m2 for >3 months. CREATININE (test code = CREAT) 0.90 mg/dL 0.7-1.3 N BUN/CREATININE RATIO (test code = BUN/CREA) 21.1 10-20 H CALCIUM (test code = CA) 9.5 mg/dL 8.5-10.1 N HEPATIC FUNCTION [id number] 15:18:00* Test Item Value Reference Range Interpretation Comments TOTAL PROTEIN (test code = PROT) 7.6 gram/dL 6.4-8.2 N ALBUMIN (test code = ALB) 3.1 g/dL 3.4-5.0 L GLOBULIN (test code = GLOB) 4.5 gram/dL 2.7-4.2 H ALBUMIN/GLOBULIN RATIO (test code = A/G) 0.7 0.75-1.50 L BILIRUBIN TOTAL (test code = BILT) 0.20 mg/dL 0.0-1.0 N BILIRUBIN DIRECT (test code = BILD) 0.08 mg/dL 0.0-0.20 N SGOT/AST (test code = AST) 14 IUnit/L 15-37 L SGPT/ALT (test code = ALT) 23 IUnit/L 12-78 N ALKALINE PHOSPHATASE TOTAL (test code = ALKP) 134 IUnit/L 45-117 H Note change in reference range due to change in reagent. [id number] 15:18:00* Test Item Value Reference Range Interpretation Comments LIPASE (test code = LIP) 222 U/L 73.0-393.0 N [id number] 15:18:00* Test Item Value Reference Range Interpretation Comments TROPONIN-I (test code = TROPI) <0.015 ng/mL 0-0.045 N BASIC METABOLIC [id number] 15:11:00* Test Item Value Reference Range Interpretation Comments SODIUM (test code = NA) 138 mmol/L 136-145 N POTASSIUM (test code = K) 4.5 mmol/L 3.5-5.1 N CHLORIDE (test code = CL) 104.0 mmol/L 98-107 N CARBON DIOXIDE (test code = CO2) mmol/L 21-32 ANION GAP (test code = GAP) 10-20 GLUCOSE (test code = GLU) mg/dL 74-106 BLOOD UREA NITROGEN (test code = BUN) mg/dL 7-18 GLOMERULAR FILTRATION RATE (test code = GFR) mL/min >=60 CREATININE (test code = CREAT) mg/dL 0.7-1.3 BUN/CREATININE RATIO (test code = BUN/CREA) 10-20 CALCIUM (test code = CA) mg/dL 8.5-10.1 HEPATIC FUNCTION [id number] 15:11:00* Test Item Value Reference Range Interpretation Comments TOTAL PROTEIN (test code = PROT) gram/dL 6.4-8.2 ALBUMIN (test code = ALB) g/dL 3.4-5.0 GLOBULIN (test code = GLOB) gram/dL 2.7-4.2 ALBUMIN/GLOBULIN RATIO (test code = A/G) 0.75-1.50 BILIRUBIN TOTAL (test code = BILT) mg/dL 0.0-1.0 BILIRUBIN DIRECT (test code = BILD) mg/dL 0.0-0.20 SGOT/AST (test code = AST) IUnit/L 15-37 SGPT/ALT (test code = ALT) IUnit/L 12-78 ALKALINE PHOSPHATASE TOTAL (test code = ALKP) IUnit/L 45-117 [id number] 15:11:00* Test Item Value Reference Range Interpretation Comments LIPASE (test code = LIP) U/L 73.0-393.0 [id number] 15:11:00* Test Item Value Reference Range Interpretation Comments TROPONIN-I (test code = TROPI) ng/mL 0-0.045 URINALYSIS [id number] 15:09:00* Test Item Value Reference Range Interpretation Comments UA COLOR (test code = COLU) YELLOW YELLOW UA APPEARANCE (test code = APPU) TURBID CLEAR A UA GLUCOSE DIPSTICK (test code = DGLUU) NEGATIVE mg/dL NEGATIVE UA BILIRUBIN DIPSTICK (test code = BILU) NEGATIVE mg/dL NEGATIVE UA KETONE DIPSTICK (test code = KETU) NEGATIVE mg/dL NEGATIVE UA SPECIFIC GRAVITY (test code = SGU) 1.015 1.001-1.035 UA BLOOD DIPSTICK (test code = SUSI) 0.2 mg/dL (2+) mg/dL NEGATIVE A UA PH DIPSTICK (test code = MELINDA) 7.5 5.0-8.0 UA PROTEIN DIPSTICK (test code = PROU) 70 (1+) mg/dL NEGATIVE A UA UROBILINIOGEN DIPSTICK (test code = URO) Normal mg/dL NEGATIVE UA NITRITE DIPSTICK (test code = MARIAMA) NEGATIVE NEGATIVE UA LEUKOCYTE ESTERASE W REFLEX (test code = LEUUR) 500 Rasheed/u L (3+) Rasheed/uL NEGATIVE A UA WBC (test code = WBCU) >200 per HPF 0-5 A UA RBC (test code = RBCU) 21-50 #/HPF 0-5 UA WBC CLUMPS (test code = WBCUCL) >10 /HPF NONE A UA EPITHELIAL CELLS (test code = EPIU) FEW per HPF FEW UA BACTERIA (test code = BACU) MANY #/HPF NONE A UA MUCUS (test code = MUCU) FEW #/LPF FEW Urine Source? Clean CatchCBC W/O [id number] 15:06:00* Test Item Value Reference Range Interpretation Comments WHITE BLOOD CELL (test code = WBC) 6.3 K/mm3 4.5-12.5 N RED BLOOD CELL (test code = RBC) 4.09 mill/mm3 4.0-5.8 N HEMOGLOBIN (test code = HGB) 11.6 gram/dL 13.0-17.5 L HEMATOCRIT (test code = HCT) 37.3 % 42.0-52.0 L MEAN CELL VOLUME (test code = MCV) 91.2 fL 80-98 N MEAN CELL HGB (test code = MCH) 28.4 picogram 27.0-33.0 N MEAN CELL HGB CONCETRATION (test code = MCHC) 31.1 gram/dL 33.0-36. 0 L RED CELL DISTRIBUTION WIDTH (test code = RDW) 14.3 % 11.6-16. 2 N PLATELET COUNT (test code = PLT) 317 K/mm3 150-450 N MEAN PLATELET VOLUME (test code = MPV) 8.9 fL 6.7-11.0 N [id number] 16:41:00* Test Item Value Reference Range Interpretation Comments GLUBED (test code = GLUBED) 154 mg/dL 74-106 H Performed [facility] certified [facility]ravure [facility] [id number] 11:34:00* Test Item Value Reference Range Interpretation Comments GLUBED (test code = GLUBED) 162 mg/dL 74-106 H Performed by certified photogravure press operator [facility] COMPREHENSIVE METABOLIC [id number] 10:38:00* Test Item Value Reference Range Interpretation Comments SODIUM (test code = NA) 137 mmol/L 136-145 N POTASSIUM (test code = K) 5.0 mmol/L 3.5-5.1 N CHLORIDE (test code = CL) 106.0 mmol/L 98-107 N CARBON DIOXIDE (test code = CO2) 26.0 mmol/L 21-32 N ANION GAP (test code = GAP) 10.0 10-20 N GLUCOSE (test code = GLU) 130 mg/dL 74-106 H BLOOD UREA NITROGEN (test code = BUN) 25 mg/dL 7-18 H GLOMERULAR FILTRATION RATE (test code = GFR) > 60 mL/min >=60 Estimated GFR by using Modified MDRD formula.Chronic kidney disease is defined as either kidney damageor GFR <60 mL/min/1.73 m2 for >3 months. CREATININE (test code = CREAT) 0.80 mg/dL 0.7-1.3 N BUN/CREATININE RATIO (test code = BUN/CREA) 30.6 10-20 H TOTAL PROTEIN (test code = PROT) 7.3 gram/dL 6.4-8.2 N ALBUMIN (test code = ALB) 2.2 g/dL 3.4-5.0 L GLOBULIN (test code = GLOB) 5.1 gram/dL 2.7-4.2 H ALBUMIN/GLOBULIN RATIO (test code = A/G) 0.4 0.75-1.50 L CALCIUM (test code = CA) 9.1 mg/dL 8.5-10.1 N BILIRUBIN TOTAL (test code = BILT) 0.10 mg/dL 0.0-1.0 N SGOT/AST (test code = AST) 12 IUnit/L 15-37 L SGPT/ALT (test code = ALT) 26 IUnit/L 12-78 N ALKALINE PHOSPHATASE TOTAL (test code = ALKP) 86 IUnit/L 45-117 N Note change in reference range due to change in reagent. COMPREHENSIVE METABOLIC [id number] 10:18:00* Test Item Value Reference Range Interpretation Comments SODIUM (test code = NA) 137 mmol/L 136-145 N POTASSIUM (test code = K) 5.0 mmol/L 3.5-5.1 N CHLORIDE (test code = CL) 106.0 mmol/L 98-107 N CARBON DIOXIDE (test code = CO2) mmol/L 21-32 ANION GAP (test code = GAP) 10-20 GLUCOSE (test code = GLU) mg/dL 74-106 BLOOD UREA NITROGEN (test code = BUN) mg/dL 7-18 GLOMERULAR FILTRATION RATE (test code = GFR) mL/min >=60 CREATININE (test code = CREAT) mg/dL 0.7-1.3 BUN/CREATININE RATIO (test code = BUN/CREA) 10-20 TOTAL PROTEIN (test code = PROT) gram/dL 6.4-8.2 ALBUMIN (test code = ALB) g/dL 3.4-5.0 GLOBULIN (test code = GLOB) gram/dL 2.7-4.2 ALBUMIN/GLOBULIN RATIO (test code = A/G) 0.75-1.50 CALCIUM (test code = CA) mg/dL 8.5-10.1 BILIRUBIN TOTAL (test code = BILT) mg/dL 0.0-1.0 SGOT/AST (test code = AST) IUnit/L 15-37 SGPT/ALT (test code = ALT) IUnit/L 12-78 ALKALINE PHOSPHATASE TOTAL (test code = ALKP) IUnit/L 45-117 CBC W/AUTO [id number] 09:58:00* Test Item Value Reference Range Interpretation Comments WHITE BLOOD CELL (test code = WBC) 7.8 K/mm3 4.5-12.5 N RED BLOOD CELL (test code = RBC) 3.03 mill/mm3 4.0-5.8 L HEMOGLOBIN (test code = HGB) 8.9 gram/dL 13.0-17.5 L HEMATOCRIT (test code = HCT) 29.4 % 42.0-52.0 L MEAN CELL VOLUME (test code = MCV) 97.0 fL 80-98 N MEAN CELL HGB (test code = MCH) 29.4 picogram 27.0-33.0 N MEAN CELL HGB CONCETRATION (test code = MCHC) 30.3 gram/dL 33.0-36. 0 L RED CELL DISTRIBUTION WIDTH (test code = RDW) 14.0 % 11.6-16. 2 N RED CELL DISTRIBUTION WIDTH SD (test code = RDW-SD) 49.4 fL 37 .0-51.0 N PLATELET COUNT (test code = PLT) 582 K/mm3 150-450 H MEAN PLATELET VOLUME (test code = MPV) 8.7 fL 6.7-11.0 N NEUTROPHIL % (test code = NT%) 73.5 % 39.0-69.0 H IMMATURE GRANULOCYTE % (test code = IG%) 3.3 % 0.0-5.0 N LYMPHOCYTE % (test code = LY%) 11.4 % 25.0-55.0 L MONOCYTE % (test code = MO%) 6.0 % 0.0-10.0 N EOSINOPHIL % (test code = EO%) 4.8 % 0.0-5.0 N BASOPHIL % (test code = BA%) 1.0 % 0.0-1.0 N NUCLEATED RBC % (test code = NRBC%) 0.0 % 0-0 N NEUTROPHIL # (test code = NT#) 5.71 K/mm3 1.8-7.7 N IMMATURE GRANULOCYTE # (test code = IG#) 0.26 x10 3/uL 0-0.03 H LYMPHOCYTE # (test code = LY#) 0.89 K/mm3 1.0-5.0 L MONOCYTE # (test code = MO#) 0.47 K/mm3 0-0.8 N EOSINOPHIL # (test code = EO#) 0.37 K/mm3 0.0-0.5 N BASOPHIL # (test code = BA#) 0.08 K/mm3 0.0-0.2 N NUCLEATED RBC # (test code = NRBC#) 0.00 K/mm3 0.0-0.1 N MANUAL DIFF REQUIRED (test code = MDIFF) NO [id number] 09:05:00* Test Item Value Reference Range Interpretation Comments GLUBED (test code = GLUBED) 125 mg/dL 74-106 H Performed by certified photogravure press operator [facility] [id number] 20:55:00* Test Item Value Reference Range Interpretation Comments GLUBED (test code = GLUBED) 165 mg/dL 74-106 H Performed by certified photogravure press operator at [facility] [id number] 16:33:00* Test Item Value Reference Range Interpretation Comments GLUBED (test code = GLUBED) 135 mg/dL 74-106 H Performed by certified photogravure press operator at [facility] [id number] 12:25:00* Test Item Value Reference Range Interpretation Comments GLUBED (test code = GLUBED) 180 mg/dL 74-106 H Performed by certified photogravure press operator at [facility] [id number] 08:17:00* Test Item Value Reference Range Interpretation Comments GLUBED (test code = GLUBED) 111 mg/dL 74-106 H Performed by certified photogravure press operator at [facility]2019-12-01 20:48:00* Test Item Value Reference Range Interpretation Comments GLUBED (test code = GLUBED) 146 mg/dL 74-106 H Performed by certified photogravure press operator at [facility] [id number] 16:39:00* Test Item Value Reference Range Interpretation Comments GLUBED (test code = GLUBED) 114 mg/dL 74-106 H Performed by certified photogravure press operator at [facility]2019-12-01 13:51:00* Test Item Value Reference Range Interpretation Comments GLUBED (test code = GLUBED) 137 mg/dL 74-106 H Performed by certified photogravure press operator at [facility]2019-12-01 08:14:00* Test Item Value Reference Range Interpretation Comments GLUBED (test code = GLUBED) 122 mg/dL 74-106 H Performed by certified photogravure press operator at [facility] [id number] 20:30:00* Test Item Value Reference Range Interpretation Comments GLUBED (test code = GLUBED) 133 mg/dL 74-106 H Performed by certified photogravure press operator at [facility] [id number] 16:08:00* Test Item Value Reference Range Interpretation Comments GLUBED (test code = GLUBED) 165 mg/dL 74-106 H Performed by certified photogravure press operator at [facility] [id number] 11:51:00* Test Item Value Reference Range Interpretation Comments GLUBED (test code = GLUBED) 185 mg/dL 74-106 H Performed by certified photogravure press operator at [facility] [id number] 08:04:00* Test Item Value Reference Range Interpretation Comments GLUBED (test code = GLUBED) 149 mg/dL 74-106 H Performed by certified photogravure press operator at [facility] INFECTION CONTROL [id number] 23:06:00* Test Item Value Reference Range Interpretation Comments HEPATITIS C RNA BY PCR (QUAL) (test code = HCVRNAPCR) Negative Negative Negative: HCV RNA Not DetectedPerformed At: [facility] [address] [id number] Sanjai MD Ph:[phone] AG HEPAT B SURF (test code = HBSAG) Nonreactive Index Nonreactive HEPATITIS B CORE ANTIBODY,TOT (test code = HBCAB) Negative Nega tive Performed At: [facility] [id number] [place], [place] [id number] Kyle L MD Ph:[phone] AB HEPATITIS C (test code = HCVAB) 0.2 0.0-0.9 INFCE Result Units: s/co ratio Negative: < 0.8 Indeterminate: 0.8 - 0.9 Positive: > 0.9 The CDC recommends that a positive HCV antibody result be followed up with a HCV Nucleic Acid Amplification test (715339). HIV 1 2 COMBO AG/AB SCREEN (test code = [id number]) AB/AG NO N REACTIVE NONREACTIVE NONREACTIVE HIV P24 ANTI GEN NONREACTIVE NONREACTIVE HIV 1&2 ANTIBODY NONREACTIVE THE HIV-1 P24 TEST HELPS DISTINGUISH ACUTE HIV-1INFECTIONFROM ESTABLISHED HIV-1 INFECTION WHEN THE SPECIMEN ISPOSITIVE FOR HIV-1 P24 ANTIGEN. HIV-1 P24 ANTIGEN IS HIGHEST IN THE FIRST FEW WEEKS AFTERINFECTION [id number] 20:14:00* Test Item Value Reference Range Interpretation Comments GLUBED (test code = GLUBED) 235 mg/dL 74-106 H Performed by certified photogravure press operator at [facility] [id number] 16:16:00* Test Item Value Reference Range Interpretation Comments GLUBED (test code = GLUBED) 215 mg/dL 74-106 H Performed by certified photogravure press operator at [facility] [id number] 12:36:00* Test Item Value Reference Range Interpretation Comments GLUBED (test code = GLUBED) 193 mg/dL 74-106 H Performed by certified photogravure press operator at [facility] [id number] 08:22:00* Test Item Value Reference Range Interpretation Comments GLUBED (test code = GLUBED) 143 mg/dL 74-106 H Performed by certified photogravure press operator at [facility] [id number] 19:45:00* Test Item Value Reference Range Interpretation Comments GLUBED (test code = GLUBED) 158 mg/dL 74-106 H Performed by certified photogravure press operator at [facility] [id number] 16:48:00* Test Item Value Reference Range Interpretation Comments GLUBED (test code = GLUBED) 140 mg/dL 74-106 H Performed by certified photogravure press operator [facility] [id number] 11:58:00* Test Item Value Reference Range Interpretation Comments GLUBED (test code = GLUBED) 176 mg/dL 74-106 H Performed by certified photogravure press operator [facility] [id number] 11:13:00* Test Item Value Reference Range Interpretation Comments GLUBED (test code = GLUBED) 151 mg/dL 74-106 H Performed by certified photogravure press operator [facility] COMPREHENSIVE METABOLIC [id number] 09:47:00* Test Item Value Reference Range Interpretation Comments SODIUM (test code = NA) 140 mmol/L 136-145 N POTASSIUM (test code = K) 4.9 mmol/L 3.5-5.1 N CHLORIDE (test code = CL) 110.0 mmol/L 98-107 H CARBON DIOXIDE (test code = CO2) 25.0 mmol/L 21-32 N ANION GAP (test code = GAP) 9.9 10-20 L GLUCOSE (test code = GLU) 195 mg/dL 74-106 H BLOOD UREA NITROGEN (test code = BUN) 30 mg/dL 7-18 H GLOMERULAR FILTRATION RATE (test code = GFR) > 60 mL/min >=60 Estimated GFR by using Modified MDRD formula.Chronic kidney disease is defined as either kidney damageor GFR <60 mL/min/1.73 m2 for >3 months. CREATININE (test code = CREAT) 0.90 mg/dL 0.7-1.3 N BUN/CREATININE RATIO (test code = BUN/CREA) 33.2 10-20 H TOTAL PROTEIN (test code = PROT) 7.1 gram/dL 6.4-8.2 N ALBUMIN (test code = ALB) 2.0 g/dL 3.4-5.0 L GLOBULIN (test code = GLOB) 5.1 gram/dL 2.7-4.2 H ALBUMIN/GLOBULIN RATIO (test code = A/G) 0.4 0.75-1.50 L CALCIUM (test code = CA) 8.9 mg/dL 8.5-10.1 N BILIRUBIN TOTAL (test code = BILT) 0.10 mg/dL 0.0-1.0 N SGOT/AST (test code = AST) 18 IUnit/L 15-37 N SGPT/ALT (test code = ALT) 43 IUnit/L 12-78 N ALKALINE PHOSPHATASE TOTAL (test code = ALKP) 81 IUnit/L 45-117 N Note change in reference range due to change in reagent. COMPREHENSIVE METABOLIC [id number] 09:40:00* Test Item Value Reference Range Interpretation Comments SODIUM (test code = NA) 140 mmol/L 136-145 N POTASSIUM (test code = K) 4.9 mmol/L 3.5-5.1 N CHLORIDE (test code = CL) 110.0 mmol/L 98-107 H CARBON DIOXIDE (test code = CO2) mmol/L 21-32 ANION GAP (test code = GAP) 10-20 GLUCOSE (test code = GLU) mg/dL 74-106 BLOOD UREA NITROGEN (test code = BUN) mg/dL 7-18 GLOMERULAR FILTRATION RATE (test code = GFR) mL/min >=60 CREATININE (test code = CREAT) mg/dL 0.7-1.3 BUN/CREATININE RATIO (test code = BUN/CREA) 10-20 TOTAL PROTEIN (test code = PROT) gram/dL 6.4-8.2 ALBUMIN (test code = ALB) g/dL 3.4-5.0 GLOBULIN (test code = GLOB) gram/dL 2.7-4.2 ALBUMIN/GLOBULIN RATIO (test code = A/G) 0.75-1.50 CALCIUM (test code = CA) mg/dL 8.5-10.1 BILIRUBIN TOTAL (test code = BILT) mg/dL 0.0-1.0 SGOT/AST (test code = AST) IUnit/L 15-37 SGPT/ALT (test code = ALT) IUnit/L 12-78 ALKALINE PHOSPHATASE TOTAL (test code = ALKP) IUnit/L 45-117 CBC W/AUTO [id number] 09:32:00* Test Item Value Reference Range Interpretation Comments WHITE BLOOD CELL (test code = WBC) 9.7 K/mm3 4.5-12.5 N RED BLOOD CELL (test code = RBC) 3.00 mill/mm3 4.0-5.8 L HEMOGLOBIN (test code = HGB) 8.9 gram/dL 13.0-17.5 L HEMATOCRIT (test code = HCT) 29.3 % 42.0-52.0 L MEAN CELL VOLUME (test code = MCV) 97.7 fL 80-98 N MEAN CELL HGB (test code = MCH) 29.7 picogram 27.0-33.0 N MEAN CELL HGB CONCETRATION (test code = MCHC) 30.4 gram/dL 33.0-36. 0 L RED CELL DISTRIBUTION WIDTH (test code = RDW) 14.2 % 11.6-16. 2 N RED CELL DISTRIBUTION WIDTH SD (test code = RDW-SD) 50.4 fL 37 .0-51.0 N PLATELET COUNT (test code = PLT) 560 K/mm3 150-450 H MEAN PLATELET VOLUME (test code = MPV) 8.9 fL 6.7-11.0 N NEUTROPHIL % (test code = NT%) 75.9 % 39.0-69.0 H IMMATURE GRANULOCYTE % (test code = IG%) 2.8 % 0.0-5.0 N LYMPHOCYTE % (test code = LY%) 12.2 % 25.0-55.0 L MONOCYTE % (test code = MO%) 4.6 % 0.0-10.0 N EOSINOPHIL % (test code = EO%) 3.5 % 0.0-5.0 N BASOPHIL % (test code = BA%) 1.0 % 0.0-1.0 N NUCLEATED RBC % (test code = NRBC%) 0.0 % 0-0 N NEUTROPHIL # (test code = NT#) 7.36 K/mm3 1.8-7.7 N IMMATURE GRANULOCYTE # (test code = IG#) 0.27 x10 3/uL 0-0.03 H LYMPHOCYTE # (test code = LY#) 1.18 K/mm3 1.0-5.0 N MONOCYTE # (test code = MO#) 0.45 K/mm3 0-0.8 N EOSINOPHIL # (test code = EO#) 0.34 K/mm3 0.0-0.5 N BASOPHIL # (test code = BA#) 0.10 K/mm3 0.0-0.2 N NUCLEATED RBC # (test code = NRBC#) 0.00 K/mm3 0.0-0.1 N MANUAL DIFF REQUIRED (test code = MDIFF) NO [id number] 03:48:00* Test Item Value Reference Range Interpretation Comments GLUBED (test code = GLUBED) 151 mg/dL 74-106 H Performed by certified photogravure press operator at [facility] [id number] 20:40:00* Test Item Value Reference Range Interpretation Comments GLUBED (test code = GLUBED) 264 mg/dL 74-106 H Performed by certified photogravure press operator at [facility] [id number] 17:42:00* Test Item Value Reference Range Interpretation Comments GLUBED (test code = GLUBED) 148 mg/dL 74-106 H Performed by certified photogravure press operator at [facility] [id number] 11:40:00* Test Item Value Reference Range Interpretation Comments GLUBED (test code = GLUBED) 211 mg/dL 74-106 H Performed by certified photogravure press operator at [facility] [id number] 08:03:00* Test Item Value Reference Range Interpretation Comments GLUBED (test code = GLUBED) 106 mg/dL 74-106 N Performed by certified photogravure press operator at [facility] [id number] 20:14:00* Test Item Value Reference Range Interpretation Comments GLUBED (test code = GLUBED) 102 mg/dL 74-106 N Performed by certified photogravure press operator at [facility] [id number] 17:12:00* Test Item Value Reference Range Interpretation Comments GLUBED (test code = GLUBED) 141 mg/dL 74-106 H Performed by certified photogravure press operator at [facility] EXTREMITY,[id number] 15:31:00 RUN DATE: 03/18/19 [place] - Lab PAGE 1 RUN TIME: 1531 Specimen Inqui ry RUN USER: INTERFACE PATIENT: XOCHILT EPSTEIN ACCT #: V [id number] LOC: ADENIKE U #: [id number] AGE/SX: 78/M ROOM: [facility] RE03/03/19REG DR: Nikki Rascno MD : 40 BED: A DIS: STATUS: ADM IN TLOC: SPEC #: [id number] RECD: 03/12/19 STATUS: MARLO REQ #: [id number] BERNARD: 03/12/19- [facility] DR: Carrie Sparrow MD ENTERED: 03/12/19 SP TYPE: EXT. AMPU OTHR DR: Jagjit Tejada John D DO Moinuddeen, Khaja MD Shebib, Zaher MDORDERED: GROSS COPIES TO: Carrie Sparrow MD [address] [place] [address] Jagjit Quintero [address] [place] [address] Faustino Ramirez DO [address] [place], [place] [id number] Fito Urena MD [address] [place] [address] Reg Luke MD [address] [place] [id number] PROCEDURES: GROSS (03/18/19-143) TISSUES: LEG, NOS - RIGHT BELOW KNEE CLINICAL HISTORY COLLE CTION DATE: 03/12/19 [place] RIGHT FOOT CONTINUED ON NEXT PAGE RUN DATE: 03/18/19 [place] - Lab PAGE 2 RUN TIME: 153 Specimen Inquiry RUN USER: INTERFACE SPEC #: [id number] PATIENT: XOCHILT EPSTEIN Vipin #[id number] (Continued)------- ----- FINAL DIAGNOSIS Right lower extremity, below knee amputation: SKIN WITH EPITHELIAL HYPERPLASIA, HYPERKERATOSIS, ULCERATION AND GANGRENOUS NECROSIS EXTENDING INTO SUBCUTANEOUS TISSUE ATHEROMATOUS PLAQ UE FORMATION, MEDIAL CALCIFICATION AND SUBTOTAL OCCLUSION OF PROXIMAL VESSELS NEGATIVE FOR MALIGNANCY RRB/sm A 64244, 17424 MACROSCOPIC The specimen is received in a red bag labeled with the adore kiran's name and identified as "right below knee". The specimen consists of a ri arturt lower extremity amputated below the knee. It measures 36.5 cm from the [place] margin of resection to the bottom of the heel and 25.5 cm across the length of the foot. Black gangrenous ulcerations are present at the distal end of t he foot, fifth toe, and fourth toe. In addition there is black gangrenous ulc er at the heel which measures 9 cm in diameter. The black gangrenous ulcer at the distal foot including the toes measures 8.3 cm in diameter. Two addition al black gangrenous ulcers are present. One at the base of the great toe cecilia uring 3.3 cm and one on the lateral ankle measuring 1.3 cm. An additional [facility] black gangrenous appearing ulceration measuring 0.7 cm is present at the top of the second toe. Section Code: 1A- samples of necrotic tissue fro m the fifth toe and lateral aspect of the foot, 1B- samples of necrotic tissue from the heel and 1C and 1D- samples of proximal blood vessels for decalcific ation. GROSS PERFORMED AT [facility] [address] [place], [place] [id number] (P) MICROSCOPIC All of the stains, including any controls performed, stain appropriately. MICROSCOPIC PERFORMED AT [facility] [address] [place] [address] (P) CONTINUED ON NEXT PAGE -RUN DATE: 03/18/19 [place] - Lab PAGE 3 RUN TIME: 1530 Specimen Inquiry RUN USER: INTERFACE SPEC #: [id number] PATIENT: XOCHILT EPSTEIN #[id number] (Continued) PERFORMING SITE Diagno sis performed at: [facility] [address] [place] [address] Signed SIGNATURE ON FILE Doroteo Sparks MD 03/18/19 1531 END OF REPORT [id number] 11:54:00* Test Item Value Reference Range Interpretation Comments GLUBED (test code = GLUBED) 226 mg/dL 74-106 H Performed by certified photogravure press operator [facility] [id number] 08:42:00* Test Item Value Reference Range Interpretation Comments GLUBED (test code = GLUBED) 138 mg/dL 74-106 H Performed by certified photogravure press operator [facility] INFECTION CONTROL [id number] 06:09:00* Test Item Value Reference Range Interpretation Comments HEPATITIS C RNA BY PCR (QUAL) (test code = HCVRNAPCR) Notdetected AG HEPAT B SURF (test code = HBSAG) Nonreactive Index Nonreactive HEPATITIS B CORE ANTIBODY,TOT (test code = HBCAB) NEGA TIVE AB HEPATITIS C (test code = HCVAB) 0.2 0.0-0.9 INFCE Result Units: s/co ratio Negative: < 0.8 Indeterminate: 0.8 - 0.9 Positive: > 0.9 The CDC recommends that a positive HCV antibody result be followed up with a HCV Nucleic Acid Amplification test ([id number]). HIV 1 2 COMBO AG/AB SCREEN (test code = [id number]) AB/AG NO N REACTIVE NONREACTIVE NONREACTIVE HIV P24 ANTI GEN NONREACTIVE NONREACTIVE HIV 1&2 ANTIBODY NONREACTIVE THE HIV-1 P24 TEST HELPS DISTINGUISH ACUTE HIV-1INFECTIONFROM ESTABLISHED HIV-1 INFECTION WHEN THE SPECIMEN ISPOSITIVE FOR HIV-1 P24 ANTIGEN. HIV-1 P24 ANTIGEN IS HIGHEST IN THE FIRST FEW WEEKS AFTERINFECTION INFECTION CONTROL [id number] 06:09:00* Test Item Value Reference Range Interpretation Comments HEPATITIS C RNA BY PCR (QUAL) (test code = HCVRNAPCR) Notdetected AG HEPAT B SURF (test code = HBSAG) Nonreactive Index Nonreactive HEPATITIS B CORE ANTIBODY,TOT (test code = HBCAB) Negative Nega tive Performed At: [facility] [address] [id number] Pascual Savage MD Ph:[phone] AB HEPATITIS C (test code = HCVAB) 0.2 0.0-0.9 INFCE Result Units: s/co ratio Negative: < 0.8 Indeterminate: 0.8 - 0.9 Positive: > 0.9 The CDC recommends that a positive HCV antibody result be followed up with a HCV Nucleic Acid Amplification test (029307). HIV 1 2 COMBO AG/AB SCREEN (test code = [id number]) AB/AG NO N REACTIVE NONREACTIVE NONREACTIVE HIV P24 ANTI GEN NONREACTIVE NONREACTIVE HIV 1&2 ANTIBODY NONREACTIVE THE HIV-1 P24 TEST HELPS DISTINGUISH ACUTE HIV-1INFECTIONFROM ESTABLISHED HIV-1 INFECTION WHEN THE SPECIMEN ISPOSITIVE FOR HIV-1 P24 ANTIGEN. HIV-1 P24 ANTIGEN IS HIGHEST IN THE FIRST FEW WEEKS AFTERINFECTION [id number] 21:15:00* Test Item Value Reference Range Interpretation Comments GLUBED (test code = GLUBED) 190 mg/dL 74-106 H Performed by certified photogravure press operator at [facility] [id number] 17:08:00* Test Item Value Reference Range Interpretation Comments GLUBED (test code = GLUBED) 168 mg/dL 74-106 H Performed by certified photogravure press operator at [facility] [id number] 15:50:00* Test Item Value Reference Range Interpretation Comments GLUBED (test code = GLUBED) 159 mg/dL 74-106 H Performed by certified photogravure press operator at [facility] [id number] 08:08:00* Test Item Value Reference Range Interpretation Comments GLUBED (test code = GLUBED) 157 mg/dL 74-106 H Performed by certified photogravure press operator at [facility] [id number] 05:47:00* Test Item Value Reference Range Interpretation Comments GLUBED (test code = GLUBED) 161 mg/dL 74-106 H Performed by certified photogravure press operator at [facility] CBC W/AUTO [id number] 02:51:00* Test Item Value Reference Range Interpretation Comments WHITE BLOOD CELL (test code = WBC) 11.5 K/mm3 4.5-12.5 N RED BLOOD CELL (test code = RBC) 2.91 mill/mm3 4.0-5.8 L HEMOGLOBIN (test code = HGB) 8.6 gram/dL 13.0-17.5 L HEMATOCRIT (test code = HCT) 27.9 % 42.0-52.0 L MEAN CELL VOLUME (test code = MCV) 95.9 fL 80-98 N MEAN CELL HGB (test code = MCH) 29.6 picogram 27.0-33.0 N MEAN CELL HGB CONCETRATION (test code = MCHC) 30.8 gram/dL 33.0-36. 0 L RED CELL DISTRIBUTION WIDTH (test code = RDW) 14.4 % 11.6-16. 2 N RED CELL DISTRIBUTION WIDTH SD (test code = RDW-SD) 50.4 fL 37 .0-51.0 N PLATELET COUNT (test code = PLT) 530 K/mm3 150-450 H RESULT VERIFIED BY REPEAT ANALYSIS MEAN PLATELET VOLUME (test code = MPV) 8.6 fL 6.7-11.0 N NEUTROPHIL % (test code = NT%) 76.0 % 39.0-69.0 H IMMATURE GRANULOCYTE % (test code = IG%) 3.7 % 0.0-5.0 N LYMPHOCYTE % (test code = LY%) 12.1 % 25.0-55.0 L MONOCYTE % (test code = MO%) 5.6 % 0.0-10.0 N EOSINOPHIL % (test code = EO%) 1.8 % 0.0-5.0 N BASOPHIL % (test code = BA%) 0.8 % 0.0-1.0 N NUCLEATED RBC % (test code = NRBC%) 0.0 % 0-0 N NEUTROPHIL # (test code = NT#) 8.75 K/mm3 1.8-7.7 H IMMATURE GRANULOCYTE # (test code = IG#) 0.43 x10 3/uL 0-0.03 H LYMPHOCYTE # (test code = LY#) 1.40 K/mm3 1.0-5.0 N MONOCYTE # (test code = MO#) 0.65 K/mm3 0-0.8 N EOSINOPHIL # (test code = EO#) 0.21 K/mm3 0.0-0.5 N BASOPHIL # (test code = BA#) 0.09 K/mm3 0.0-0.2 N NUCLEATED RBC # (test code = NRBC#) 0.00 K/mm3 0.0-0.1 N MANUAL DIFF REQUIRED (test code = MDIFF) NO [id number] 20:47:00* Test Item Value Reference Range Interpretation Comments GLUBED (test code = GLUBED) 164 mg/dL 74-106 H Performed by certified photogravure press operator at [facility] [id number] 15:18:00* Test Item Value Reference Range Interpretation Comments GLUBED (test code = GLUBED) 210 mg/dL 74-106 H Performed by certified photogravure press operator at [facility] INFECTION CONTROL [id number] 15:11:00* Test Item Value Reference Range Interpretation Comments HEPATITIS C RNA BY PCR (QUAL) (test code = HCVRNAPCR) Notdetected AG HEPAT B SURF (test code = HBSAG) Nonreactive Index Nonreactive HEPATITIS B CORE ANTIBODY,TOT (test code = HBCAB) NEGA TIVE AB HEPATITIS C (test code = HCVAB) NEGATIVE HIV 1 2 COMBO AG/AB SCREEN (test code = [id number]) AB/AG NO N REACTIVE NONREACTIVE NONREACTIVE HIV P24 ANTI GEN NONREACTIVE NONREACTIVE HIV 1&2 ANTIBODY NONREACTIVE THE HIV-1 P24 TEST HELPS DISTINGUISH ACUTE HIV-1INFECTIONFROM ESTABLISHED HIV-1 INFECTION WHEN THE SPECIMEN ISPOSITIVE FOR HIV-1 P24 ANTIGEN. HIV-1 P24 ANTIGEN IS HIGHEST IN THE FIRST FEW WEEKS AFTERINFECTION HIV 1 2 COMBO AG/AB [id number] 15:02:00* Test Item Value Reference Range Interpretation Comments HIV 1 2 COMBO AG/AB SCREEN (test code = [id number]) TEST NOT PERFORMED NONREACTIVE NONREACTIVE HIV P24 ANTI GEN NONREACTIVE NONREACTIVE HIV 1&2 ANTIBODY NONREACTIVE THE HIV-1 P24 TEST HELPS DISTINGUISH ACUTE HIV-1INFECTIONFROM ESTABLISHED HIV-1 INFECTION WHEN THE SPECIMEN ISPOSITIVE FOR HIV-1 P24 ANTIGEN. HIV-1 P24 ANTIGEN IS HIGHEST IN THE FIRST FEW WEEKS AFTERINFECTION Previously reported result: AB/AG NON REACTIVE Edited by: MARTINE on 03/16/19:37556105/16/18 1502: HIV 1&2 AG/AB previously reported as: AB/AG NON REACTIVE NONREACTIVE HIV P24 ANTIGEN NONREACTIVE NONREACTIVE HIV 1&2 ANTIBODY NONREACTIVE THE H IV-1 P24 TEST HELPS DISTINGUISH ACUTE HIV-1INFECTION FROM ESTABLISHED HIV-1 INFECTION WHEN THE SPECIMEN IS POSITIVE FOR HIV-1 P24 ANTIGEN. HIV-1 P24 ANTIGEN IS HIGHEST IN THE FIRST FEW WEEKS AFTER INFECTION INFECTION CONTROL [id number] 13:59:00* Test Item Value Reference Range Interpretation Comments HEPATITIS C RNA BY PCR (QUAL) (test code = HCVRNAPCR) Notdetected AG HEPAT B SURF (test code = HBSAG) Nonreactive Index Nonreactive HEPATITIS B CORE ANTIBODY,TOT (test code = HBCAB) NEGA TIVE AB HEPATITIS C (test code = HCVAB) NEGATIVE HIV 1 2 COMBO AG/AB SCREEN (test code = [id number]) NO NREACTIVE HIV 1 2 COMBO AG/AB [id number] 13:04:00* Test Item Value Reference Range Interpretation Comments HIV 1 2 COMBO AG/AB SCREEN (test code = [id number]) AB/AG NO N REACTIVE NONREACTIVE NONREACTIVE HIV P24 ANTI GEN NONREACTIVE NONREACTIVE HIV 1&2 ANTIBODY NONREACTIVE THE HIV-1 P24 TEST HELPS DISTINGUISH ACUTE HIV-1INFECTIONFROM ESTABLISHED HIV-1 INFECTION WHEN THE SPECIMEN ISPOSITIVE FOR HIV-1 P24 ANTIGEN. HIV-1 P24 ANTIGEN IS HIGHEST IN THE FIRST FEW WEEKS AFTERINFECTION BASIC METABOLIC [id number] 08:22:00* Test Item Value Reference Range Interpretation Comments SODIUM (test code = NA) 138 mmol/L 136-145 N POTASSIUM (test code = K) 4.6 mmol/L 3.5-5.1 N CHLORIDE (test code = CL) 105.0 mmol/L 98-107 N CARBON DIOXIDE (test code = CO2) 27.0 mmol/L 21-32 N ANION GAP (test code = GAP) 10.6 10-20 N GLUCOSE (test code = GLU) 163 mg/dL 74-106 H BLOOD UREA NITROGEN (test code = BUN) 14 mg/dL 7-18 N GLOMERULAR FILTRATION RATE (test code = GFR) > 60 mL/min >=60 Estimated GFR by using Modified MDRD formula.Chronic kidney disease is defined as either kidney damageor GFR <60 mL/min/1.73 m2 for >3 months. CREATININE (test code = CREAT) 0.70 mg/dL 0.7-1.3 N BUN/CREATININE RATIO (test code = BUN/CREA) 20.7 10-20 H CALCIUM (test code = CA) 8.7 mg/dL 8.5-10.1 N [id number] 08:17:00* Test Item Value Reference Range Interpretation Comments GLUBED (test code = GLUBED) 158 mg/dL 74-106 H Performed by certified photogravure press operator at [facility] BASIC METABOLIC [id number] 08:16:00* Test Item Value Reference Range Interpretation Comments SODIUM (test code = NA) 138 mmol/L 136-145 N POTASSIUM (test code = K) 4.6 mmol/L 3.5-5.1 N CHLORIDE (test code = CL) 105.0 mmol/L 98-107 N CARBON DIOXIDE (test code = CO2) mmol/L 21-32 ANION GAP (test code = GAP) 10-20 GLUCOSE (test code = GLU) mg/dL 74-106 BLOOD UREA NITROGEN (test code = BUN) mg/dL 7-18 GLOMERULAR FILTRATION RATE (test code = GFR) mL/min >=60 CREATININE (test code = CREAT) mg/dL 0.7-1.3 BUN/CREATININE RATIO (test code = BUN/CREA) 10-20 CALCIUM (test code = CA) 8.7 mg/dL 8.5-10.1 N CBC W/AUTO [id number] 07:36:00* Test Item Value Reference Range Interpretation Comments WHITE BLOOD CELL (test code = WBC) 9.3 K/mm3 4.5-12.5 N RED BLOOD CELL (test code = RBC) 2.94 mill/mm3 4.0-5.8 L HEMOGLOBIN (test code = HGB) 8.7 gram/dL 13.0-17.5 L RESULT VERIFIED BY REPEAT ANALYSIS HEMATOCRIT (test code = HCT) 27.9 % 42.0-52.0 L MEAN CELL VOLUME (test code = MCV) 94.9 fL 80-98 N MEAN CELL HGB (test code = MCH) 29.6 picogram 27.0-33.0 N MEAN CELL HGB CONCETRATION (test code = MCHC) 31.2 gram/dL 33.0-36. 0 L RED CELL DISTRIBUTION WIDTH (test code = RDW) 14.3 % 11.6-16. 2 N RED CELL DISTRIBUTION WIDTH SD (test code = RDW-SD) 49.2 fL 37 .0-51.0 N PLATELET COUNT (test code = PLT) 475 K/mm3 150-450 H MEAN PLATELET VOLUME (test code = MPV) 8.3 fL 6.7-11.0 N NEUTROPHIL % (test code = NT%) 71.9 % 39.0-69.0 H IMMATURE GRANULOCYTE % (test code = IG%) 4.5 % 0.0-5.0 N LYMPHOCYTE % (test code = LY%) 12.5 % 25.0-55.0 L MONOCYTE % (test code = MO%) 7.2 % 0.0-10.0 N EOSINOPHIL % (test code = EO%) 3.1 % 0.0-5.0 N BASOPHIL % (test code = BA%) 0.8 % 0.0-1.0 N NUCLEATED RBC % (test code = NRBC%) 0.0 % 0-0 N NEUTROPHIL # (test code = NT#) 6.65 K/mm3 1.8-7.7 N IMMATURE GRANULOCYTE # (test code = IG#) 0.42 x10 3/uL 0-0.03 H LYMPHOCYTE # (test code = LY#) 1.16 K/mm3 1.0-5.0 N MONOCYTE # (test code = MO#) 0.67 K/mm3 0-0.8 N EOSINOPHIL # (test code = EO#) 0.29 K/mm3 0.0-0.5 N BASOPHIL # (test code = BA#) 0.07 K/mm3 0.0-0.2 N NUCLEATED RBC # (test code = NRBC#) 0.00 K/mm3 0.0-0.1 N V[facility] 03/16/19 [id number] 21:35:00* Test Item Value Reference Range Interpretation Comments GLUBED (test code = GLUBED) 133 mg/dL 74-106 H Performed by certified photogravure press operator at [facility] [id number] 20:35:00* Test Item Value Reference Range Interpretation Comments GLUBED (test code = GLUBED) 163 mg/dL 74-106 H Performed by certified photogravure press operator at [facility] [id number] 15:53:00* Test Item Value Reference Range Interpretation Comments GLUBED (test code = GLUBED) 209 mg/dL 74-106 H Performed by certified photogravure press operator at [facility] [id number] 08:18:00* Test Item Value Reference Range Interpretation Comments GLUBED (test code = GLUBED) 157 mg/dL 74-106 H Performed by certified photogravure press operator at [facility] BASIC METABOLIC [id number] 03:11:00* Test Item Value Reference Range Interpretation Comments SODIUM (test code = NA) 139 mmol/L 136-145 N POTASSIUM (test code = K) 4.8 mmol/L 3.5-5.1 N CHLORIDE (test code = CL) 105.9 mmol/L 98-107 N CARBON DIOXIDE (test code = CO2) 26.0 mmol/L 21-32 N ANION GAP (test code = GAP) 11.9 10-20 N GLUCOSE (test code = GLU) 245 mg/dL 74-106 H BLOOD UREA NITROGEN (test code = BUN) 20 mg/dL 7-18 H GLOMERULAR FILTRATION RATE (test code = GFR) > 60 mL/min >=60 Estimated GFR by using Modified MDRD formula.Chronic kidney disease is defined as either kidney damageor GFR <60 mL/min/1.73 m2 for >3 months. CREATININE (test code = CREAT) 0.80 mg/dL 0.7-1.3 N BUN/CREATININE RATIO (test code = BUN/CREA) 25.3 10-20 H CALCIUM (test code = CA) 8.4 mg/dL 8.5-10.1 L CBC W/AUTO [id number] 02:52:00* Test Item Value Reference Range Interpretation Comments WHITE BLOOD CELL (test code = WBC) 10.3 K/mm3 4.5-12.5 N RED BLOOD CELL (test code = RBC) 2.28 mill/mm3 4.0-5.8 L HEMOGLOBIN (test code = HGB) 6.7 gram/dL 13.0-17.5 L HEMATOCRIT (test code = HCT) 22.0 % 42.0-52.0 L MEAN CELL VOLUME (test code = MCV) 96.5 fL 80-98 N MEAN CELL HGB (test code = MCH) 29.4 picogram 27.0-33.0 N MEAN CELL HGB CONCETRATION (test code = MCHC) 30.5 gram/dL 33.0-36. 0 L RED CELL DISTRIBUTION WIDTH (test code = RDW) 14.3 % 11.6-16. 2 N RED CELL DISTRIBUTION WIDTH SD (test code = RDW-SD) 50.3 fL 37 .0-51.0 N PLATELET COUNT (test code = PLT) 423 K/mm3 150-450 N MEAN PLATELET VOLUME (test code = MPV) 8.8 fL 6.7-11.0 N NEUTROPHIL % (test code = NT%) 75.4 % 39.0-69.0 H IMMATURE GRANULOCYTE % (test code = IG%) 4.2 % 0.0-5.0 N LYMPHOCYTE % (test code = LY%) 9.9 % 25.0-55.0 L MONOCYTE % (test code = MO%) 8.2 % 0.0-10.0 N EOSINOPHIL % (test code = EO%) 1.9 % 0.0-5.0 N BASOPHIL % (test code = BA%) 0.4 % 0.0-1.0 N NUCLEATED RBC % (test code = NRBC%) 0.0 % 0-0 N NEUTROPHIL # (test code = NT#) 7.76 K/mm3 1.8-7.7 H IMMATURE GRANULOCYTE # (test code = IG#) 0.43 x10 3/uL 0-0.03 H LYMPHOCYTE # (test code = LY#) 1.02 K/mm3 1.0-5.0 N MONOCYTE # (test code = MO#) 0.84 K/mm3 0-0.8 H EOSINOPHIL # (test code = EO#) 0.20 K/mm3 0.0-0.5 N BASOPHIL # (test code = BA#) 0.04 K/mm3 0.0-0.2 N NUCLEATED RBC # (test code = NRBC#) 0.00 K/mm3 0.0-0.1 N MANUAL DIFF REQUIRED (test code = MDIFF) NO [id number] 20:59:00* Test Item Value Reference Range Interpretation Comments GLUBED (test code = GLUBED) 189 mg/dL 74-106 H Performed by certified photogravure press operator at [facility] [id number] 17:16:00* Test Item Value Reference Range Interpretation Comments GLUBED (test code = GLUBED) 168 mg/dL 74-106 H Performed by certified photogravure press operator at [facility] [id number] 12:32:00* Test Item Value Reference Range Interpretation Comments GLUBED (test code = GLUBED) 191 mg/dL 74-106 H Performed by certified photogravure press operator at [facility] BASIC METABOLIC [id number] 10:59:00* Test Item Value Reference Range Interpretation Comments SODIUM (test code = NA) 137 mmol/L 136-145 N POTASSIUM (test code = K) 4.8 mmol/L 3.5-5.1 N CHLORIDE (test code = CL) 104.0 mmol/L 98-107 N CARBON DIOXIDE (test code = CO2) 28.0 mmol/L 21-32 N ANION GAP (test code = GAP) 9.8 10-20 L GLUCOSE (test code = GLU) 167 mg/dL 74-106 H BLOOD UREA NITROGEN (test code = BUN) 16 mg/dL 7-18 N GLOMERULAR FILTRATION RATE (test code = GFR) > 60 mL/min >=60 Estimated GFR by using Modified MDRD formula.Chronic kidney disease is defined as either kidney damageor GFR <60 mL/min/1.73 m2 for >3 months. CREATININE (test code = CREAT) 0.80 mg/dL 0.7-1.3 N BUN/CREATININE RATIO (test code = BUN/CREA) 20.3 10-20 H CALCIUM (test code = CA) 8.8 mg/dL 8.5-10.1 N BASIC METABOLIC [id number] 10:53:00* Test Item Value Reference Range Interpretation Comments SODIUM (test code = NA) 137 mmol/L 136-145 N POTASSIUM (test code = K) 4.8 mmol/L 3.5-5.1 N CHLORIDE (test code = CL) 104.0 mmol/L 98-107 N CARBON DIOXIDE (test code = CO2) mmol/L 21-32 ANION GAP (test code = GAP) 10-20 GLUCOSE (test code = GLU) mg/dL 74-106 BLOOD UREA NITROGEN (test code = BUN) mg/dL 7-18 GLOMERULAR FILTRATION RATE (test code = GFR) mL/min >=60 CREATININE (test code = CREAT) mg/dL 0.7-1.3 BUN/CREATININE RATIO (test code = BUN/CREA) 10-20 CALCIUM (test code = CA) 8.8 mg/dL 8.5-10.1 N BASIC METABOLIC [id number] 10:52:00* Test Item Value Reference Range Interpretation Comments SODIUM (test code = NA) 137 mmol/L 136-145 N POTASSIUM (test code = K) 4.8 mmol/L 3.5-5.1 N CHLORIDE (test code = CL) 104.0 mmol/L 98-107 N CARBON DIOXIDE (test code = CO2) mmol/L 21-32 ANION GAP (test code = GAP) 10-20 GLUCOSE (test code = GLU) mg/dL 74-106 BLOOD UREA NITROGEN (test code = BUN) mg/dL 7-18 GLOMERULAR FILTRATION RATE (test code = GFR) mL/min >=60 CREATININE (test code = CREAT) mg/dL 0.7-1.3 BUN/CREATININE RATIO (test code = BUN/CREA) 10-20 CALCIUM (test code = CA) mg/dL 8.5-10.1 CBC W/AUTO [id number] 10:17:00* Test Item Value Reference Range Interpretation Comments WHITE BLOOD CELL (test code = WBC) 9.9 K/mm3 4.5-12.5 N RED BLOOD CELL (test code = RBC) 2.64 mill/mm3 4.0-5.8 L HEMOGLOBIN (test code = HGB) 7.6 gram/dL 13.0-17.5 L HEMATOCRIT (test code = HCT) 24.7 % 42.0-52.0 L MEAN CELL VOLUME (test code = MCV) 93.6 fL 80-98 N MEAN CELL HGB (test code = MCH) 28.8 picogram 27.0-33.0 N MEAN CELL HGB CONCETRATION (test code = MCHC) 30.8 gram/dL 33.0-36. 0 L RED CELL DISTRIBUTION WIDTH (test code = RDW) 14.5 % 11.6-16. 2 N RED CELL DISTRIBUTION WIDTH SD (test code = RDW-SD) 49.2 fL 37 .0-51.0 N PLATELET COUNT (test code = PLT) 452 K/mm3 150-450 H MEAN PLATELET VOLUME (test code = MPV) 8.9 fL 6.7-11.0 N NEUTROPHIL % (test code = NT%) 78.2 % 39.0-69.0 H IMMATURE GRANULOCYTE % (test code = IG%) 3.1 % 0.0-5.0 N LYMPHOCYTE % (test code = LY%) 9.7 % 25.0-55.0 L MONOCYTE % (test code = MO%) 7.2 % 0.0-10.0 N EOSINOPHIL % (test code = EO%) 1.2 % 0.0-5.0 N BASOPHIL % (test code = BA%) 0.6 % 0.0-1.0 N NUCLEATED RBC % (test code = NRBC%) 0.0 % 0-0 N NEUTROPHIL # (test code = NT#) 7.74 K/mm3 1.8-7.7 H IMMATURE GRANULOCYTE # (test code = IG#) 0.31 x10 3/uL 0-0.03 H LYMPHOCYTE # (test code = LY#) 0.96 K/mm3 1.0-5.0 L MONOCYTE # (test code = MO#) 0.71 K/mm3 0-0.8 N EOSINOPHIL # (test code = EO#) 0.12 K/mm3 0.0-0.5 N BASOPHIL # (test code = BA#) 0.06 K/mm3 0.0-0.2 N NUCLEATED RBC # (test code = NRBC#) 0.00 K/mm3 0.0-0.1 N [id number] 07:55:00* Test Item Value Reference Range Interpretation Comments GLUBED (test code = GLUBED) 118 mg/dL 74-106 H Performed by certified photogravure press operator at [facility] [id number] 21:12:00* Test Item Value Reference Range Interpretation Comments GLUBED (test code = GLUBED) 211 mg/dL 74-106 H Performed by certified photogravure press operator at [facility] [id number] 16:35:00* Test Item Value Reference Range Interpretation Comments GLUBED (test code = GLUBED) 132 mg/dL 74-106 H Performed by certified photogravure press operator at [facility] [id number] 11:36:00* Test Item Value Reference Range Interpretation Comments GLUBED (test code = GLUBED) 169 mg/dL 74-106 H Performed by certified photogravure press operator at [facility] [id number] 08:38:00* Test Item Value Reference Range Interpretation Comments GLUBED (test code = GLUBED) 83 mg/dL 74-106 N Performed by certified photogravure press operator at [facility] CBC W/MANUAL [id number] 07:21:00* Test Item Value Reference Range Interpretation Comments WHITE BLOOD CELL (test code = WBC) 12.4 K/mm3 4.5-12.5 N RED BLOOD CELL (test code = RBC) 2.58 mill/mm3 4.0-5.8 L HEMOGLOBIN (test code = HGB) 7.6 gram/dL 13.0-17.5 L HEMATOCRIT (test code = HCT) 24.5 % 42.0-52.0 L MEAN CELL VOLUME (test code = MCV) 95.0 fL 80-98 N MEAN CELL HGB (test code = MCH) 29.5 picogram 27.0-33.0 N MEAN CELL HGB CONCETRATION (test code = MCHC) 31.0 gram/dL 33.0-36. 0 L RED CELL DISTRIBUTION WIDTH (test code = RDW) 14.6 % 11.6-16. 2 N RED CELL DISTRIBUTION WIDTH SD (test code = RDW-SD) 50.5 fL 37 .0-51.0 N PLATELET COUNT (test code = PLT) 422 K/mm3 150-450 N MEAN PLATELET VOLUME (test code = MPV) 8.6 fL 6.7-11.0 N NEUTROPHIL % (test code = NT%) 82.1 % 39.0-69.0 H IMMATURE GRANULOCYTE % (test code = IG%) 2.6 % 0.0-5.0 N LYMPHOCYTE % (test code = LY%) 8.3 % 25.0-55.0 L MONOCYTE % (test code = MO%) 6.4 % 0.0-10.0 N EOSINOPHIL % (test code = EO%) 0.1 % 0.0-5.0 N BASOPHIL % (test code = BA%) 0.5 % 0.0-1.0 N NUCLEATED RBC % (test code = NRBC%) 0.0 % 0-0 N NEUTROPHIL # (test code = NT#) 10.15 K/mm3 1.8-7.7 H IMMATURE GRANULOCYTE # (test code = IG#) 0.32 x10 3/uL 0-0.03 H LYMPHOCYTE # (test code = LY#) 1.03 K/mm3 1.0-5.0 N MONOCYTE # (test code = MO#) 0.79 K/mm3 0-0.8 N EOSINOPHIL # (test code = EO#) 0.01 K/mm3 0.0-0.5 N BASOPHIL # (test code = BA#) 0.06 K/mm3 0.0-0.2 N NUCLEATED RBC # (test code = NRBC#) 0.00 K/mm3 0.0-0.1 N MANUAL DIFF REQUIRED (test code = MDIFF) NO STAIN ACCEPTABILITY (test code = STN ACCEPTABLE) STAIN ACCEPTABLE TOTAL CELLS COUNTED (test code = TCC) 115 #CELLS SEGMENTED NEUTROPHILS (test code = SEG) 85.2 % 39-69 H BAND NEUTROPHIL (test code = BAND) 0 % 0-10 N LYMPHOCYTE (test code = LYMPH) 11.3 % 25-55 L REACTIVE LYMPH (test code = RELYMPH) 0 % MONOCYTE (test code = MON) 2.6 % 0-10 N EOSINOPHIL (test code = EOS) 0 % 0.0-5.0 N BASOPHIL (test code = BASO) 0 % 0-1.0 N METAMYELOCYTE (test code = META) 0 % 0-0 N MYELOCYTE (test code = MYELO) 0.9 % 0.0-0.0 H PROMYELOCYTE (test code = PROM) 0 % 0-0 N POIKILOCYTOSIS (test code = POIK) 1+ CRENATED CELLS (test code = CREN) 1+ PLATELET ESTIMATE (test code = PLTEST) DECREASED PLATELET MORPHOLOGY (test code = PLTMORPH) NORMAL IMMATURE FORMS (test code = IMMAT) 0 % 0-0 N BASIC METABOLIC [id number] 04:08:00* Test Item Value Reference Range Interpretation Comments SODIUM (test code = NA) 136 mmol/L 136-145 N POTASSIUM (test code = K) 4.9 mmol/L 3.5-5.1 N CHLORIDE (test code = CL) 105.0 mmol/L 98-107 N CARBON DIOXIDE (test code = CO2) 26.0 mmol/L 21-32 N ANION GAP (test code = GAP) 9.9 10-20 L GLUCOSE (test code = GLU) 89 mg/dL 74-106 N BLOOD UREA NITROGEN (test code = BUN) 16 mg/dL 7-18 N GLOMERULAR FILTRATION RATE (test code = GFR) > 60 mL/min >=60 Estimated GFR by using Modified MDRD formula.Chronic kidney disease is defined as either kidney damageor GFR <60 mL/min/1.73 m2 for >3 months. CREATININE (test code = CREAT) 0.70 mg/dL 0.7-1.3 N BUN/CREATININE RATIO (test code = BUN/CREA) 23.0 10-20 H CALCIUM (test code = CA) 8.7 mg/dL 8.5-10.1 N BASIC METABOLIC [id number] 04:00:00* Test Item Value Reference Range Interpretation Comments SODIUM (test code = NA) 136 mmol/L 136-145 N POTASSIUM (test code = K) 4.9 mmol/L 3.5-5.1 N CHLORIDE (test code = CL) 105.0 mmol/L 98-107 N CARBON DIOXIDE (test code = CO2) mmol/L 21-32 ANION GAP (test code = GAP) 10-20 GLUCOSE (test code = GLU) mg/dL 74-106 BLOOD UREA NITROGEN (test code = BUN) mg/dL 7-18 GLOMERULAR FILTRATION RATE (test code = GFR) mL/min >=60 CREATININE (test code = CREAT) mg/dL 0.7-1.3 BUN/CREATININE RATIO (test code = BUN/CREA) 10-20 CALCIUM (test code = CA) mg/dL 8.5-10.1 CBC W/MANUAL [id number] 03:50:00* Test Item Value Reference Range Interpretation Comments WHITE BLOOD CELL (test code = WBC) 12.4 K/mm3 4.5-12.5 N RED BLOOD CELL (test code = RBC) 2.58 mill/mm3 4.0-5.8 L HEMOGLOBIN (test code = HGB) 7.6 gram/dL 13.0-17.5 L HEMATOCRIT (test code = HCT) 24.5 % 42.0-52.0 L MEAN CELL VOLUME (test code = MCV) 95.0 fL 80-98 N MEAN CELL HGB (test code = MCH) 29.5 picogram 27.0-33.0 N MEAN CELL HGB CONCETRATION (test code = MCHC) 31.0 gram/dL 33.0-36. 0 L RED CELL DISTRIBUTION WIDTH (test code = RDW) 14.6 % 11.6-16. 2 N RED CELL DISTRIBUTION WIDTH SD (test code = RDW-SD) 50.5 fL 37 .0-51.0 N PLATELET COUNT (test code = PLT) 422 K/mm3 150-450 N MEAN PLATELET VOLUME (test code = MPV) 8.6 fL 6.7-11.0 N NEUTROPHIL % (test code = NT%) 82.1 % 39.0-69.0 H IMMATURE GRANULOCYTE % (test code = IG%) 2.6 % 0.0-5.0 N LYMPHOCYTE % (test code = LY%) 8.3 % 25.0-55.0 L MONOCYTE % (test code = MO%) 6.4 % 0.0-10.0 N EOSINOPHIL % (test code = EO%) 0.1 % 0.0-5.0 N BASOPHIL % (test code = BA%) 0.5 % 0.0-1.0 N NUCLEATED RBC % (test code = NRBC%) 0.0 % 0-0 N NEUTROPHIL # (test code = NT#) 10.15 K/mm3 1.8-7.7 H IMMATURE GRANULOCYTE # (test code = IG#) 0.32 x10 3/uL 0-0.03 H LYMPHOCYTE # (test code = LY#) 1.03 K/mm3 1.0-5.0 N MONOCYTE # (test code = MO#) 0.79 K/mm3 0-0.8 N EOSINOPHIL # (test code = EO#) 0.01 K/mm3 0.0-0.5 N BASOPHIL # (test code = BA#) 0.06 K/mm3 0.0-0.2 N NUCLEATED RBC # (test code = NRBC#) 0.00 K/mm3 0.0-0.1 N MANUAL DIFF REQUIRED (test code = MDIFF) NO STAIN ACCEPTABILITY (test code = STN ACCEPTABLE) TOTAL CELLS COUNTED (test code = TCC) #CELLS SEGMENTED NEUTROPHILS (test code = SEG) % 39-69 LYMPHOCYTE (test code = LYMPH) % 25-55 MONOCYTE (test code = MON) % 0-10 MORPHOLOGY COMMENT (test code = MOC) PLATELET ESTIMATE (test code = PLTEST) PLATELET MORPHOLOGY (test code = PLTMORPH) [id number] 19:48:00* Test Item Value Reference Range Interpretation Comments GLUBED (test code = GLUBED) 117 mg/dL 74-106 H Performed by certified photogravure press operator at [facility] [id number] 16:34:00* Test Item Value Reference Range Interpretation Comments GLUBED (test code = GLUBED) 136 mg/dL 74-106 H Performed by certified photogravure press operator at [facility] [id number] 14:32:00* Test Item Value Reference Range Interpretation Comments GLUBED (test code = GLUBED) 133 mg/dL 74-106 H Performed by certified photogravure press operator at [facility] BASIC METABOLIC [id number] 13:05:00* Test Item Value Reference Range Interpretation Comments SODIUM (test code = NA) 136 mmol/L 136-145 RESU LT VERIFIED BY REPEAT ANALYSIS POTASSIUM (test code = K) 5.1 mmol/L 3.5-5.1 N CHLORIDE (test code = CL) 106.0 mmol/L 98-107 N CARBON DIOXIDE (test code = CO2) 23.0 mmol/L 21-32 N ANION GAP (test code = GAP) 12.1 10-20 N GLUCOSE (test code = GLU) 144 mg/dL 74-106 H BLOOD UREA NITROGEN (test code = BUN) 16 mg/dL 7-18 N GLOMERULAR FILTRATION RATE (test code = GFR) > 60 mL/min >=60 Estimated GFR by using Modified MDRD formula.Chronic kidney disease is defined as either kidney damageor GFR <60 mL/min/1.73 m2 for >3 months. CREATININE (test code = CREAT) 0.70 mg/dL 0.7-1.3 N BUN/CREATININE RATIO (test code = BUN/CREA) 21.4 10-20 H CALCIUM (test code = CA) 8.7 mg/dL 8.5-10.1 N [id number] 07:54:00* Test Item Value Reference Range Interpretation Comments GLUBED (test code = GLUBED) 108 mg/dL 74-106 H Performed by certified photogravure press operator at [facility] [id number] 06:33:00* Test Item Value Reference Range Interpretation Comments GLUBED (test code = GLUBED) 107 mg/dL 74-106 H Performed by certified photogravure press operator at [facility] CBC W/AUTO [id number] 02:55:00* Test Item Value Reference Range Interpretation Comments WHITE BLOOD CELL (test code = WBC) 18.5 K/mm3 4.5-12.5 H RED BLOOD CELL (test code = RBC) 2.67 mill/mm3 4.0-5.8 L HEMOGLOBIN (test code = HGB) 7.6 gram/dL 13.0-17.5 L HEMATOCRIT (test code = HCT) 25.5 % 42.0-52.0 L MEAN CELL VOLUME (test code = MCV) 95.5 fL 80-98 N MEAN CELL HGB (test code = MCH) 28.5 picogram 27.0-33.0 N MEAN CELL HGB CONCETRATION (test code = MCHC) 29.8 gram/dL 33.0-36. 0 L RED CELL DISTRIBUTION WIDTH (test code = RDW) 14.3 % 11.6-16. 2 N RED CELL DISTRIBUTION WIDTH SD (test code = RDW-SD) 50.7 fL 37 .0-51.0 N PLATELET COUNT (test code = PLT) 434 K/mm3 150-450 N MEAN PLATELET VOLUME (test code = MPV) 8.7 fL 6.7-11.0 N NEUTROPHIL % (test code = NT%) 81.7 % 39.0-69.0 H IMMATURE GRANULOCYTE % (test code = IG%) 3.5 % 0.0-5.0 N LYMPHOCYTE % (test code = LY%) 8.6 % 25.0-55.0 L MONOCYTE % (test code = MO%) 4.3 % 0.0-10.0 N EOSINOPHIL % (test code = EO%) 1.5 % 0.0-5.0 N BASOPHIL % (test code = BA%) 0.4 % 0.0-1.0 N NUCLEATED RBC % (test code = NRBC%) 0.0 % 0-0 N NEUTROPHIL # (test code = NT#) 15.15 K/mm3 1.8-7.7 H IMMATURE GRANULOCYTE # (test code = IG#) 0.64 x10 3/uL 0-0.03 H LYMPHOCYTE # (test code = LY#) 1.60 K/mm3 1.0-5.0 N MONOCYTE # (test code = MO#) 0.80 K/mm3 0-0.8 N EOSINOPHIL # (test code = EO#) 0.27 K/mm3 0.0-0.5 N BASOPHIL # (test code = BA#) 0.07 K/mm3 0.0-0.2 N NUCLEATED RBC # (test code = NRBC#) 0.00 K/mm3 0.0-0.1 N MANUAL DIFF REQUIRED (test code = MDIFF) NO, ONLY SCAN NEEDED DIFFERENTIAL [id number] 02:55:00* Test Item Value Reference Range Interpretation Comments STAIN ACCEPTABILITY (test code = STN ACCEPTABLE) STAIN ACCEPTABLE PLATELET ESTIMATE (test code = PLTEST) ADEQUATE PLATELET MORPHOLOGY (test code = PLTMORPH) NORMAL BASIC METABOLIC [id number] 02:09:00* Test Item Value Reference Range Interpretation Comments SODIUM (test code = NA) 145 mmol/L 136-145 RESU LT VERIFIED BY REPEAT ANALYSIS POTASSIUM (test code = K) 5.2 mmol/L 3.5-5.1 H CHLORIDE (test code = CL) 111.0 mmol/L 98-107 H CARBON DIOXIDE (test code = CO2) 26.0 mmol/L 21-32 N ANION GAP (test code = GAP) 13.2 10-20 N GLUCOSE (test code = GLU) 132 mg/dL 74-106 H BLOOD UREA NITROGEN (test code = BUN) 20 mg/dL 7-18 H GLOMERULAR FILTRATION RATE (test code = GFR) > 60 mL/min >=60 Estimated GFR by using Modified MDRD formula.Chronic kidney disease is defined as either kidney damageor GFR <60 mL/min/1.73 m2 for >3 months. CREATININE (test code = CREAT) 0.80 mg/dL 0.7-1.3 N BUN/CREATININE RATIO (test code = BUN/CREA) 26.1 10-20 H CALCIUM (test code = CA) 8.4 mg/dL 8.5-10.1 L CBC W/AUTO [id number] 01:48:00* Test Item Value Reference Range Interpretation Comments WHITE BLOOD CELL (test code = WBC) 18.5 K/mm3 4.5-12.5 H RED BLOOD CELL (test code = RBC) 2.67 mill/mm3 4.0-5.8 L HEMOGLOBIN (test code = HGB) 7.6 gram/dL 13.0-17.5 L HEMATOCRIT (test code = HCT) 25.5 % 42.0-52.0 L MEAN CELL VOLUME (test code = MCV) 95.5 fL 80-98 N MEAN CELL HGB (test code = MCH) 28.5 picogram 27.0-33.0 N MEAN CELL HGB CONCETRATION (test code = MCHC) 29.8 gram/dL 33.0-36. 0 L RED CELL DISTRIBUTION WIDTH (test code = RDW) 14.3 % 11.6-16. 2 N RED CELL DISTRIBUTION WIDTH SD (test code = RDW-SD) 50.7 fL 37 .0-51.0 N PLATELET COUNT (test code = PLT) 434 K/mm3 150-450 N MEAN PLATELET VOLUME (test code = MPV) 8.7 fL 6.7-11.0 N NEUTROPHIL % (test code = NT%) 81.7 % 39.0-69.0 H IMMATURE GRANULOCYTE % (test code = IG%) 3.5 % 0.0-5.0 N LYMPHOCYTE % (test code = LY%) 8.6 % 25.0-55.0 L MONOCYTE % (test code = MO%) 4.3 % 0.0-10.0 N EOSINOPHIL % (test code = EO%) 1.5 % 0.0-5.0 N BASOPHIL % (test code = BA%) 0.4 % 0.0-1.0 N NUCLEATED RBC % (test code = NRBC%) 0.0 % 0-0 N NEUTROPHIL # (test code = NT#) 15.15 K/mm3 1.8-7.7 H IMMATURE GRANULOCYTE # (test code = IG#) 0.64 x10 3/uL 0-0.03 H LYMPHOCYTE # (test code = LY#) 1.60 K/mm3 1.0-5.0 N MONOCYTE # (test code = MO#) 0.80 K/mm3 0-0.8 N EOSINOPHIL # (test code = EO#) 0.27 K/mm3 0.0-0.5 N BASOPHIL # (test code = BA#) 0.07 K/mm3 0.0-0.2 N NUCLEATED RBC # (test code = NRBC#) 0.00 K/mm3 0.0-0.1 N MANUAL DIFF REQUIRED (test code = MDIFF) NO, ONLY SCAN NEEDED DIFFERENTIAL [id number] 01:48:00* Test Item Value Reference Range Interpretation Comments STAIN ACCEPTABILITY (test code = STN ACCEPTABLE) CABOT RINGS (test code = CAB) MORPHOLOGY COMMENT (test code = MOC) PLATELET ESTIMATE (test code = PLTEST) PLATELET MORPHOLOGY (test code = PLTMORPH) CBC W/AUTO [id number] 01:48:00* Test Item Value Reference Range Interpretation Comments WHITE BLOOD CELL (test code = WBC) 18.5 K/mm3 4.5-12.5 H RED BLOOD CELL (test code = RBC) 2.67 mill/mm3 4.0-5.8 L HEMOGLOBIN (test code = HGB) 7.6 gram/dL 13.0-17.5 L HEMATOCRIT (test code = HCT) 25.5 % 42.0-52.0 L MEAN CELL VOLUME (test code = MCV) 95.5 fL 80-98 N MEAN CELL HGB (test code = MCH) 28.5 picogram 27.0-33.0 N MEAN CELL HGB CONCETRATION (test code = MCHC) 29.8 gram/dL 33.0-36. 0 L RED CELL DISTRIBUTION WIDTH (test code = RDW) 14.3 % 11.6-16. 2 N RED CELL DISTRIBUTION WIDTH SD (test code = RDW-SD) 50.7 fL 37 .0-51.0 N PLATELET COUNT (test code = PLT) 434 K/mm3 150-450 N MEAN PLATELET VOLUME (test code = MPV) 8.7 fL 6.7-11.0 N NEUTROPHIL % (test code = NT%) 81.7 % 39.0-69.0 H IMMATURE GRANULOCYTE % (test code = IG%) 3.5 % 0.0-5.0 N LYMPHOCYTE % (test code = LY%) 8.6 % 25.0-55.0 L MONOCYTE % (test code = MO%) 4.3 % 0.0-10.0 N EOSINOPHIL % (test code = EO%) 1.5 % 0.0-5.0 N BASOPHIL % (test code = BA%) 0.4 % 0.0-1.0 N NUCLEATED RBC % (test code = NRBC%) 0.0 % 0-0 N NEUTROPHIL # (test code = NT#) 15.15 K/mm3 1.8-7.7 H IMMATURE GRANULOCYTE # (test code = IG#) 0.64 x10 3/uL 0-0.03 H LYMPHOCYTE # (test code = LY#) 1.60 K/mm3 1.0-5.0 N MONOCYTE # (test code = MO#) 0.80 K/mm3 0-0.8 N EOSINOPHIL # (test code = EO#) 0.27 K/mm3 0.0-0.5 N BASOPHIL # (test code = BA#) 0.07 K/mm3 0.0-0.2 N NUCLEATED RBC # (test code = NRBC#) 0.00 K/mm3 0.0-0.1 N MANUAL DIFF REQUIRED (test code = MDIFF) NO, ONLY SCAN NEEDED DIFFERENTIAL [id number] 01:48:00* Test Item Value Reference Range Interpretation Comments STAIN ACCEPTABILITY (test code = STN ACCEPTABLE) CABOT RINGS (test code = CAB) MORPHOLOGY COMMENT (test code = MOC) PLATELET ESTIMATE (test code = PLTEST) PLATELET MORPHOLOGY (test code = PLTMORPH) CBC W/AUTO [id number] 01:48:00* Test Item Value Reference Range Interpretation Comments WHITE BLOOD CELL (test code = WBC) 18.5 K/mm3 4.5-12.5 H RED BLOOD CELL (test code = RBC) 2.67 mill/mm3 4.0-5.8 L HEMOGLOBIN (test code = HGB) 7.6 gram/dL 13.0-17.5 L HEMATOCRIT (test code = HCT) 25.5 % 42.0-52.0 L MEAN CELL VOLUME (test code = MCV) 95.5 fL 80-98 N MEAN CELL HGB (test code = MCH) 28.5 picogram 27.0-33.0 N MEAN CELL HGB CONCETRATION (test code = MCHC) 29.8 gram/dL 33.0-36. 0 L RED CELL DISTRIBUTION WIDTH (test code = RDW) 14.3 % 11.6-16. 2 N RED CELL DISTRIBUTION WIDTH SD (test code = RDW-SD) 50.7 fL 37 .0-51.0 N PLATELET COUNT (test code = PLT) 434 K/mm3 150-450 N MEAN PLATELET VOLUME (test code = MPV) 8.7 fL 6.7-11.0 N NEUTROPHIL % (test code = NT%) 81.7 % 39.0-69.0 H IMMATURE GRANULOCYTE % (test code = IG%) 3.5 % 0.0-5.0 N LYMPHOCYTE % (test code = LY%) 8.6 % 25.0-55.0 L MONOCYTE % (test code = MO%) 4.3 % 0.0-10.0 N EOSINOPHIL % (test code = EO%) 1.5 % 0.0-5.0 N BASOPHIL % (test code = BA%) 0.4 % 0.0-1.0 N NUCLEATED RBC % (test code = NRBC%) 0.0 % 0-0 N NEUTROPHIL # (test code = NT#) 15.15 K/mm3 1.8-7.7 H IMMATURE GRANULOCYTE # (test code = IG#) 0.64 x10 3/uL 0-0.03 H LYMPHOCYTE # (test code = LY#) 1.60 K/mm3 1.0-5.0 N MONOCYTE # (test code = MO#) 0.80 K/mm3 0-0.8 N EOSINOPHIL # (test code = EO#) 0.27 K/mm3 0.0-0.5 N BASOPHIL # (test code = BA#) 0.07 K/mm3 0.0-0.2 N NUCLEATED RBC # (test code = NRBC#) 0.00 K/mm3 0.0-0.1 N MANUAL DIFF REQUIRED (test code = MDIFF) NO, ONLY SCAN NEEDED DIFFERENTIAL [id number] 01:48:00* Test Item Value Reference Range Interpretation Comments STAIN ACCEPTABILITY (test code = STN ACCEPTABLE) MORPHOLOGY COMMENT (test code = MOC) PLATELET ESTIMATE (test code = PLTEST) PLATELET MORPHOLOGY (test code = PLTMORPH) CBC W/AUTO [id number] 01:47:00* Test Item Value Reference Range Interpretation Comments WHITE BLOOD CELL (test code = WBC) 18.5 K/mm3 4.5-12.5 H RED BLOOD CELL (test code = RBC) 2.67 mill/mm3 4.0-5.8 L HEMOGLOBIN (test code = HGB) 7.6 gram/dL 13.0-17.5 L HEMATOCRIT (test code = HCT) 25.5 % 42.0-52.0 L MEAN CELL VOLUME (test code = MCV) 95.5 fL 80-98 N MEAN CELL HGB (test code = MCH) 28.5 picogram 27.0-33.0 N MEAN CELL HGB CONCETRATION (test code = MCHC) 29.8 gram/dL 33.0-36. 0 L RED CELL DISTRIBUTION WIDTH (test code = RDW) 14.3 % 11.6-16. 2 N RED CELL DISTRIBUTION WIDTH SD (test code = RDW-SD) 50.7 fL 37 .0-51.0 N PLATELET COUNT (test code = PLT) 434 K/mm3 150-450 N MEAN PLATELET VOLUME (test code = MPV) 8.7 fL 6.7-11.0 N NEUTROPHIL % (test code = NT%) 81.7 % 39.0-69.0 H IMMATURE GRANULOCYTE % (test code = IG%) 3.5 % 0.0-5.0 N LYMPHOCYTE % (test code = LY%) 8.6 % 25.0-55.0 L MONOCYTE % (test code = MO%) 4.3 % 0.0-10.0 N EOSINOPHIL % (test code = EO%) 1.5 % 0.0-5.0 N BASOPHIL % (test code = BA%) 0.4 % 0.0-1.0 N NUCLEATED RBC % (test code = NRBC%) 0.0 % 0-0 N NEUTROPHIL # (test code = NT#) 15.15 K/mm3 1.8-7.7 H IMMATURE GRANULOCYTE # (test code = IG#) 0.64 x10 3/uL 0-0.03 H LYMPHOCYTE # (test code = LY#) 1.60 K/mm3 1.0-5.0 N MONOCYTE # (test code = MO#) 0.80 K/mm3 0-0.8 N EOSINOPHIL # (test code = EO#) 0.27 K/mm3 0.0-0.5 N BASOPHIL # (test code = BA#) 0.07 K/mm3 0.0-0.2 N NUCLEATED RBC # (test code = NRBC#) 0.00 K/mm3 0.0-0.1 N MANUAL DIFF REQUIRED (test code = MDIFF) NO, ONLY SCAN NEEDED DIFFERENTIAL [id number] 01:47:00* Test Item Value Reference Range Interpretation Comments STAIN ACCEPTABILITY (test code = STN ACCEPTABLE) CABOT RINGS (test code = CAB) MORPHOLOGY COMMENT (test code = MOC) PLATELET ESTIMATE (test code = PLTEST) PLATELET MORPHOLOGY (test code = PLTMORPH) [id number] 20:40:00* Test Item Value Reference Range Interpretation Comments GLUBED (test code = GLUBED) 188 mg/dL 74-106 H Performed by certified photogravure press operator at [facility] [id number] 19:01:00* Test Item Value Reference Range Interpretation Comments GLUBED (test code = GLUBED) 144 mg/dL 74-106 H Performed by certified photogravure press operator at [facility] [id number] 12:12:00* Test Item Value Reference Range Interpretation Comments GLUBED (test code = GLUBED) 186 mg/dL 74-106 H Performed by certified photogravure press operator at [facility] [id number] 09:35:00* Test Item Value Reference Range Interpretation Comments GLUBED (test code = GLUBED) 115 mg/dL 74-106 H Performed by certified photogravure press operator at [facility] BASIC METABOLIC [id number] 02:43:00* Test Item Value Reference Range Interpretation Comments SODIUM (test code = NA) 139 mmol/L 136-145 N POTASSIUM (test code = K) 4.6 mmol/L 3.5-5.1 N CHLORIDE (test code = CL) 108.0 mmol/L 98-107 H CARBON DIOXIDE (test code = CO2) 26.0 mmol/L 21-32 N ANION GAP (test code = GAP) 9.6 10-20 L GLUCOSE (test code = GLU) 181 mg/dL 74-106 H BLOOD UREA NITROGEN (test code = BUN) 22 mg/dL 7-18 H GLOMERULAR FILTRATION RATE (test code = GFR) > 60 mL/min >=60 Estimated GFR by using Modified MDRD formula.Chronic kidney disease is defined as either kidney damageor GFR <60 mL/min/1.73 m2 for >3 months. CREATININE (test code = CREAT) 0.90 mg/dL 0.7-1.3 N BUN/CREATININE RATIO (test code = BUN/CREA) 25.3 10-20 H CALCIUM (test code = CA) 8.1 mg/dL 8.5-10.1 L BASIC METABOLIC [id number] 02:35:00* Test Item Value Reference Range Interpretation Comments SODIUM (test code = NA) 139 mmol/L 136-145 N POTASSIUM (test code = K) 4.6 mmol/L 3.5-5.1 N CHLORIDE (test code = CL) 108.0 mmol/L 98-107 H CARBON DIOXIDE (test code = CO2) mmol/L 21-32 ANION GAP (test code = GAP) 10-20 GLUCOSE (test code = GLU) mg/dL 74-106 BLOOD UREA NITROGEN (test code = BUN) mg/dL 7-18 GLOMERULAR FILTRATION RATE (test code = GFR) mL/min >=60 CREATININE (test code = CREAT) mg/dL 0.7-1.3 BUN/CREATININE RATIO (test code = BUN/CREA) 10-20 CALCIUM (test code = CA) mg/dL 8.5-10.1 CBC W/AUTO [id number] 02:27:00* Test Item Value Reference Range Interpretation Comments WHITE BLOOD CELL (test code = WBC) 13.9 K/mm3 4.5-12.5 H RED BLOOD CELL (test code = RBC) 2.71 mill/mm3 4.0-5.8 L HEMOGLOBIN (test code = HGB) 7.8 gram/dL 13.0-17.5 L HEMATOCRIT (test code = HCT) 25.7 % 42.0-52.0 L MEAN CELL VOLUME (test code = MCV) 94.8 fL 80-98 N MEAN CELL HGB (test code = MCH) 28.8 picogram 27.0-33.0 N MEAN CELL HGB CONCETRATION (test code = MCHC) 30.4 gram/dL 33.0-36. 0 L RED CELL DISTRIBUTION WIDTH (test code = RDW) 14.5 % 11.6-16. 2 N RED CELL DISTRIBUTION WIDTH SD (test code = RDW-SD) 49.1 fL 37 .0-51.0 N PLATELET COUNT (test code = PLT) 406 K/mm3 150-450 N MEAN PLATELET VOLUME (test code = MPV) 8.8 fL 6.7-11.0 N NEUTROPHIL % (test code = NT%) 78.1 % 39.0-69.0 H IMMATURE GRANULOCYTE % (test code = IG%) 4.7 % 0.0-5.0 N LYMPHOCYTE % (test code = LY%) 9.4 % 25.0-55.0 L MONOCYTE % (test code = MO%) 4.5 % 0.0-10.0 N EOSINOPHIL % (test code = EO%) 2.7 % 0.0-5.0 N BASOPHIL % (test code = BA%) 0.6 % 0.0-1.0 N NUCLEATED RBC % (test code = NRBC%) 0.0 % 0-0 N NEUTROPHIL # (test code = NT#) 10.90 K/mm3 1.8-7.7 H IMMATURE GRANULOCYTE # (test code = IG#) 0.65 x10 3/uL 0-0.03 H LYMPHOCYTE # (test code = LY#) 1.31 K/mm3 1.0-5.0 N MONOCYTE # (test code = MO#) 0.63 K/mm3 0-0.8 N EOSINOPHIL # (test code = EO#) 0.37 K/mm3 0.0-0.5 N BASOPHIL # (test code = BA#) 0.08 K/mm3 0.0-0.2 N NUCLEATED RBC # (test code = NRBC#) 0.00 K/mm3 0.0-0.1 N MANUAL DIFF REQUIRED (test code = MDIFF) NO [id number] 21:30:00* Test Item Value Reference Range Interpretation Comments GLUBED (test code = GLUBED) 164 mg/dL 74-106 H Performed by certified photogravure press operator at [facility] [id number] 20:51:00* Test Item Value Reference Range Interpretation Comments GLUBED (test code = GLUBED) 207 mg/dL 74-106 H Performed by certified photogravure press operator at [facility] [id number] 15:01:00* Test Item Value Reference Range Interpretation Comments GLUBED (test code = GLUBED) 127 mg/dL 74-106 H Performed by certified photogravure press operator at [facility] [id number] 08:28:00* Test Item Value Reference Range Interpretation Comments GLUBED (test code = GLUBED) 100 mg/dL 74-106 N Performed by certified photogravure press operator at [facility] [id number] 05:32:00* Test Item Value Reference Range Interpretation Comments GLUBED (test code = GLUBED) 137 mg/dL 74-106 H Performed by certified photogravure press operator at [facility] CBC W/AUTO [id number] 02:41:00* Test Item Value Reference Range Interpretation Comments WHITE BLOOD CELL (test code = WBC) 18.9 K/mm3 4.5-12.5 H RED BLOOD CELL (test code = RBC) 2.75 mill/mm3 4.0-5.8 L HEMOGLOBIN (test code = HGB) 7.9 gram/dL 13.0-17.5 L HEMATOCRIT (test code = HCT) 26.7 % 42.0-52.0 L MEAN CELL VOLUME (test code = MCV) 97.1 fL 80-98 N MEAN CELL HGB (test code = MCH) 28.7 picogram 27.0-33.0 N MEAN CELL HGB CONCETRATION (test code = MCHC) 29.6 gram/dL 33.0-36. 0 L RED CELL DISTRIBUTION WIDTH (test code = RDW) 14.5 % 11.6-16. 2 N RED CELL DISTRIBUTION WIDTH SD (test code = RDW-SD) 51.1 fL 37 .0-51.0 H PLATELET COUNT (test code = PLT) 394 K/mm3 150-450 N MEAN PLATELET VOLUME (test code = MPV) 8.7 fL 6.7-11.0 N NEUTROPHIL % (test code = NT%) 82.4 % 39.0-69.0 H IMMATURE GRANULOCYTE % (test code = IG%) 3.7 % 0.0-5.0 N LYMPHOCYTE % (test code = LY%) 7.4 % 25.0-55.0 L MONOCYTE % (test code = MO%) 4.8 % 0.0-10.0 N EOSINOPHIL % (test code = EO%) 1.3 % 0.0-5.0 N BASOPHIL % (test code = BA%) 0.4 % 0.0-1.0 N NUCLEATED RBC % (test code = NRBC%) 0.0 % 0-0 N NEUTROPHIL # (test code = NT#) 15.56 K/mm3 1.8-7.7 H IMMATURE GRANULOCYTE # (test code = IG#) 0.69 x10 3/uL 0-0.03 H LYMPHOCYTE # (test code = LY#) 1.40 K/mm3 1.0-5.0 N MONOCYTE # (test code = MO#) 0.91 K/mm3 0-0.8 H EOSINOPHIL # (test code = EO#) 0.24 K/mm3 0.0-0.5 N BASOPHIL # (test code = BA#) 0.08 K/mm3 0.0-0.2 N NUCLEATED RBC # (test code = NRBC#) 0.00 K/mm3 0.0-0.1 N MANUAL DIFF REQUIRED (test code = MDIFF) NO, ONLY SCAN NEEDED DIFFERENTIAL [id number] 02:41:00* Test Item Value Reference Range Interpretation Comments STAIN ACCEPTABILITY (test code = STN ACCEPTABLE) STAIN ACCEPTABLE POIKILOCYTOSIS (test code = POIK) 1+ CRENATED CELLS (test code = CREN) 1+ PLATELET ESTIMATE (test code = PLTEST) ADEQUATE PLATELET MORPHOLOGY (test code = PLTMORPH) NORMAL BASIC METABOLIC [id number] 02:19:00* Test Item Value Reference Range Interpretation Comments SODIUM (test code = NA) 140 mmol/L 136-145 N POTASSIUM (test code = K) 4.4 mmol/L 3.5-5.1 N CHLORIDE (test code = CL) 108.0 mmol/L 98-107 H CARBON DIOXIDE (test code = CO2) 24.0 mmol/L 21-32 N ANION GAP (test code = GAP) 12.4 10-20 N GLUCOSE (test code = GLU) 181 mg/dL 74-106 H BLOOD UREA NITROGEN (test code = BUN) 26 mg/dL 7-18 H RESULT VERIFIED BY REPEAT ANALYSIS GLOMERULAR FILTRATION RATE (test code = GFR) > 60 mL/min >=60 Estimated GFR by using Modified MDRD formula.Chronic kidney disease is defined as either kidney damageor GFR <60 mL/min/1.73 m2 for >3 months. CREATININE (test code = CREAT) 1.00 mg/dL 0.7-1.3 N BUN/CREATININE RATIO (test code = BUN/CREA) 26.0 10-20 H CALCIUM (test code = CA) 8.2 mg/dL 8.5-10.1 L CBC W/AUTO [id number] 02:12:00* Test Item Value Reference Range Interpretation Comments WHITE BLOOD CELL (test code = WBC) 18.9 K/mm3 4.5-12.5 H RED BLOOD CELL (test code = RBC) 2.75 mill/mm3 4.0-5.8 L HEMOGLOBIN (test code = HGB) 7.9 gram/dL 13.0-17.5 L HEMATOCRIT (test code = HCT) 26.7 % 42.0-52.0 L MEAN CELL VOLUME (test code = MCV) 97.1 fL 80-98 N MEAN CELL HGB (test code = MCH) 28.7 picogram 27.0-33.0 N MEAN CELL HGB CONCETRATION (test code = MCHC) 29.6 gram/dL 33.0-36. 0 L RED CELL DISTRIBUTION WIDTH (test code = RDW) 14.5 % 11.6-16. 2 N RED CELL DISTRIBUTION WIDTH SD (test code = RDW-SD) 51.1 fL 37 .0-51.0 H PLATELET COUNT (test code = PLT) 394 K/mm3 150-450 N MEAN PLATELET VOLUME (test code = MPV) 8.7 fL 6.7-11.0 N NEUTROPHIL % (test code = NT%) 82.4 % 39.0-69.0 H IMMATURE GRANULOCYTE % (test code = IG%) 3.7 % 0.0-5.0 N LYMPHOCYTE % (test code = LY%) 7.4 % 25.0-55.0 L MONOCYTE % (test code = MO%) 4.8 % 0.0-10.0 N EOSINOPHIL % (test code = EO%) 1.3 % 0.0-5.0 N BASOPHIL % (test code = BA%) 0.4 % 0.0-1.0 N NUCLEATED RBC % (test code = NRBC%) 0.0 % 0-0 N NEUTROPHIL # (test code = NT#) 15.56 K/mm3 1.8-7.7 H IMMATURE GRANULOCYTE # (test code = IG#) 0.69 x10 3/uL 0-0.03 H LYMPHOCYTE # (test code = LY#) 1.40 K/mm3 1.0-5.0 N MONOCYTE # (test code = MO#) 0.91 K/mm3 0-0.8 H EOSINOPHIL # (test code = EO#) 0.24 K/mm3 0.0-0.5 N BASOPHIL # (test code = BA#) 0.08 K/mm3 0.0-0.2 N NUCLEATED RBC # (test code = NRBC#) 0.00 K/mm3 0.0-0.1 N MANUAL DIFF REQUIRED (test code = MDIFF) NO, ONLY SCAN NEEDED DIFFERENTIAL [id number] 02:12:00* Test Item Value Reference Range Interpretation Comments STAIN ACCEPTABILITY (test code = STN ACCEPTABLE) CABOT RINGS (test code = CAB) MORPHOLOGY COMMENT (test code = MOC) PLATELET ESTIMATE (test code = PLTEST) PLATELET MORPHOLOGY (test code = PLTMORPH) CBC W/AUTO [id number] 02:12:00* Test Item Value Reference Range Interpretation Comments WHITE BLOOD CELL (test code = WBC) 18.9 K/mm3 4.5-12.5 H RED BLOOD CELL (test code = RBC) 2.75 mill/mm3 4.0-5.8 L HEMOGLOBIN (test code = HGB) 7.9 gram/dL 13.0-17.5 L HEMATOCRIT (test code = HCT) 26.7 % 42.0-52.0 L MEAN CELL VOLUME (test code = MCV) 97.1 fL 80-98 N MEAN CELL HGB (test code = MCH) 28.7 picogram 27.0-33.0 N MEAN CELL HGB CONCETRATION (test code = MCHC) 29.6 gram/dL 33.0-36. 0 L RED CELL DISTRIBUTION WIDTH (test code = RDW) 14.5 % 11.6-16. 2 N RED CELL DISTRIBUTION WIDTH SD (test code = RDW-SD) 51.1 fL 37 .0-51.0 H PLATELET COUNT (test code = PLT) 394 K/mm3 150-450 N MEAN PLATELET VOLUME (test code = MPV) 8.7 fL 6.7-11.0 N NEUTROPHIL % (test code = NT%) 82.4 % 39.0-69.0 H IMMATURE GRANULOCYTE % (test code = IG%) 3.7 % 0.0-5.0 N LYMPHOCYTE % (test code = LY%) 7.4 % 25.0-55.0 L MONOCYTE % (test code = MO%) 4.8 % 0.0-10.0 N EOSINOPHIL % (test code = EO%) 1.3 % 0.0-5.0 N BASOPHIL % (test code = BA%) 0.4 % 0.0-1.0 N NUCLEATED RBC % (test code = NRBC%) 0.0 % 0-0 N NEUTROPHIL # (test code = NT#) 15.56 K/mm3 1.8-7.7 H IMMATURE GRANULOCYTE # (test code = IG#) 0.69 x10 3/uL 0-0.03 H LYMPHOCYTE # (test code = LY#) 1.40 K/mm3 1.0-5.0 N MONOCYTE # (test code = MO#) 0.91 K/mm3 0-0.8 H EOSINOPHIL # (test code = EO#) 0.24 K/mm3 0.0-0.5 N BASOPHIL # (test code = BA#) 0.08 K/mm3 0.0-0.2 N NUCLEATED RBC # (test code = NRBC#) 0.00 K/mm3 0.0-0.1 N MANUAL DIFF REQUIRED (test code = MDIFF) NO, ONLY SCAN NEEDED DIFFERENTIAL [id number] 02:12:00* Test Item Value Reference Range Interpretation Comments STAIN ACCEPTABILITY (test code = STN ACCEPTABLE) CABOT RINGS (test code = CAB) MORPHOLOGY COMMENT (test code = MOC) PLATELET ESTIMATE (test code = PLTEST) PLATELET MORPHOLOGY (test code = PLTMORPH) CBC W/AUTO [id number] 02:12:00* Test Item Value Reference Range Interpretation Comments WHITE BLOOD CELL (test code = WBC) 18.9 K/mm3 4.5-12.5 H RED BLOOD CELL (test code = RBC) 2.75 mill/mm3 4.0-5.8 L HEMOGLOBIN (test code = HGB) 7.9 gram/dL 13.0-17.5 L HEMATOCRIT (test code = HCT) 26.7 % 42.0-52.0 L MEAN CELL VOLUME (test code = MCV) 97.1 fL 80-98 N MEAN CELL HGB (test code = MCH) 28.7 picogram 27.0-33.0 N MEAN CELL HGB CONCETRATION (test code = MCHC) 29.6 gram/dL 33.0-36. 0 L RED CELL DISTRIBUTION WIDTH (test code = RDW) 14.5 % 11.6-16. 2 N RED CELL DISTRIBUTION WIDTH SD (test code = RDW-SD) 51.1 fL 37 .0-51.0 H PLATELET COUNT (test code = PLT) 394 K/mm3 150-450 N MEAN PLATELET VOLUME (test code = MPV) 8.7 fL 6.7-11.0 N NEUTROPHIL % (test code = NT%) 82.4 % 39.0-69.0 H IMMATURE GRANULOCYTE % (test code = IG%) 3.7 % 0.0-5.0 N LYMPHOCYTE % (test code = LY%) 7.4 % 25.0-55.0 L MONOCYTE % (test code = MO%) 4.8 % 0.0-10.0 N EOSINOPHIL % (test code = EO%) 1.3 % 0.0-5.0 N BASOPHIL % (test code = BA%) 0.4 % 0.0-1.0 N NUCLEATED RBC % (test code = NRBC%) 0.0 % 0-0 N NEUTROPHIL # (test code = NT#) 15.56 K/mm3 1.8-7.7 H IMMATURE GRANULOCYTE # (test code = IG#) 0.69 x10 3/uL 0-0.03 H LYMPHOCYTE # (test code = LY#) 1.40 K/mm3 1.0-5.0 N MONOCYTE # (test code = MO#) 0.91 K/mm3 0-0.8 H EOSINOPHIL # (test code = EO#) 0.24 K/mm3 0.0-0.5 N BASOPHIL # (test code = BA#) 0.08 K/mm3 0.0-0.2 N NUCLEATED RBC # (test code = NRBC#) 0.00 K/mm3 0.0-0.1 N MANUAL DIFF REQUIRED (test code = MDIFF) NO, ONLY SCAN NEEDED DIFFERENTIAL [id number] 02:12:00* Test Item Value Reference Range Interpretation Comments STAIN ACCEPTABILITY (test code = STN ACCEPTABLE) MORPHOLOGY COMMENT (test code = MOC) PLATELET ESTIMATE (test code = PLTEST) PLATELET MORPHOLOGY (test code = PLTMORPH) CBC W/AUTO [id number] 02:11:00* Test Item Value Reference Range Interpretation Comments WHITE BLOOD CELL (test code = WBC) 18.9 K/mm3 4.5-12.5 H RED BLOOD CELL (test code = RBC) 2.75 mill/mm3 4.0-5.8 L HEMOGLOBIN (test code = HGB) 7.9 gram/dL 13.0-17.5 L HEMATOCRIT (test code = HCT) 26.7 % 42.0-52.0 L MEAN CELL VOLUME (test code = MCV) 97.1 fL 80-98 N MEAN CELL HGB (test code = MCH) 28.7 picogram 27.0-33.0 N MEAN CELL HGB CONCETRATION (test code = MCHC) 29.6 gram/dL 33.0-36. 0 L RED CELL DISTRIBUTION WIDTH (test code = RDW) 14.5 % 11.6-16. 2 N RED CELL DISTRIBUTION WIDTH SD (test code = RDW-SD) 51.1 fL 37 .0-51.0 H PLATELET COUNT (test code = PLT) 394 K/mm3 150-450 N MEAN PLATELET VOLUME (test code = MPV) 8.7 fL 6.7-11.0 N NEUTROPHIL % (test code = NT%) 82.4 % 39.0-69.0 H IMMATURE GRANULOCYTE % (test code = IG%) 3.7 % 0.0-5.0 N LYMPHOCYTE % (test code = LY%) 7.4 % 25.0-55.0 L MONOCYTE % (test code = MO%) 4.8 % 0.0-10.0 N EOSINOPHIL % (test code = EO%) 1.3 % 0.0-5.0 N BASOPHIL % (test code = BA%) 0.4 % 0.0-1.0 N NUCLEATED RBC % (test code = NRBC%) 0.0 % 0-0 N NEUTROPHIL # (test code = NT#) 15.56 K/mm3 1.8-7.7 H IMMATURE GRANULOCYTE # (test code = IG#) 0.69 x10 3/uL 0-0.03 H LYMPHOCYTE # (test code = LY#) 1.40 K/mm3 1.0-5.0 N MONOCYTE # (test code = MO#) 0.91 K/mm3 0-0.8 H EOSINOPHIL # (test code = EO#) 0.24 K/mm3 0.0-0.5 N BASOPHIL # (test code = BA#) 0.08 K/mm3 0.0-0.2 N NUCLEATED RBC # (test code = NRBC#) 0.00 K/mm3 0.0-0.1 N MANUAL DIFF REQUIRED (test code = MDIFF) NO, ONLY SCAN NEEDED DIFFERENTIAL [id number] 02:11:00* Test Item Value Reference Range Interpretation Comments STAIN ACCEPTABILITY (test code = STN ACCEPTABLE) CABOT RINGS (test code = CAB) MORPHOLOGY COMMENT (test code = MOC) PLATELET ESTIMATE (test code = PLTEST) PLATELET MORPHOLOGY (test code = PLTMORPH) BASIC METABOLIC [id number] 02:04:00* Test Item Value Reference Range Interpretation Comments SODIUM (test code = NA) 140 mmol/L 136-145 N POTASSIUM (test code = K) 4.4 mmol/L 3.5-5.1 N CHLORIDE (test code = CL) 108.0 mmol/L 98-107 H CARBON DIOXIDE (test code = CO2) mmol/L 21-32 ANION GAP (test code = GAP) 10-20 GLUCOSE (test code = GLU) mg/dL 74-106 BLOOD UREA NITROGEN (test code = BUN) mg/dL 7-18 GLOMERULAR FILTRATION RATE (test code = GFR) mL/min >=60 CREATININE (test code = CREAT) mg/dL 0.7-1.3 BUN/CREATININE RATIO (test code = BUN/CREA) 10-20 CALCIUM (test code = CA) 8.2 mg/dL 8.5-10.1 L [id number] 21:56:00* Test Item Value Reference Range Interpretation Comments GLUBED (test code = GLUBED) 274 mg/dL 74-106 H Performed by certified photogravure press operator at [facility] - CT ABD PELVIS [id number] 17:18:00 Name: XOCHILT EPSTEIN [facility] : 1940 Age/S: 78 / M [address] Unit #: [id number] [place] [address] Phys: Geovanny Griffin Acct: [id number] Dis Date: Status: ADM IN PHONE #: [phone] Exam Date: 03/09/2019 1711 FAX #: [phone] Reason: concern sacral OM EXAMS: CPT CODE: [id number] CT ABD PELVIS W/CONT 70172 REASON FOR EXAM: concern sacral OM EXAM ORDER DATE: 03/09/2019 1:23 PM Ordering: JADON Andrea Attending:Adelina Moncada MD Location: PROCEDURE: - CT ABD PELVIS W/CONT COMPARISON: FINDINGS: CT images of the abdomen and pelvis were obtained with IV and without oral contrast at 5mm. Dose modulation, iterative reconstruction, and/or weight based adjustment of the MA/KV was utilized to reduce the radiation dose to as low as reasonably achievable. Intravenous contrast: 100cc of Omnipaque 370. The liver, spleen, pancreas are grossly within normal limits. The patient is status post cholecystectomy The kidneys are within normal limits. The small bowel is within normal limits without evidence of obstruction. The appendix was not seen No evidence of free air or free fluid. IMPRESSION: Moderate fluid distention of the stomach. Partially contracted urinary bladder with a suprapubic catheter present and minimal thickening of the urinary bladder wall. Slightly right to the midline, sacral decubitus ulcer. No evidence of focal abscess or fluid collection in the area of the ulcer. Moderate amount of stool in the colon suggestive of constipation/fecal impaction at 7706 Reported and signed by: Earle Alvarado M.D. PAGE 1 Signed Report (CONTINUED) Name: ANGELICA EPSTEINEL [facility] [place] : 1940 Age/S: 78 / M [address] Unit #: [id number] Loc: [place] 775 04 Phys: Geovanny Griffin Acct: [id number] Dis Date: Status: ADM IN PHONE #: [phone] Exam Date: 03/09/2019 171 FAX #: [phone] Reason: concern sacral OM EXAMS: CPT CODE: [id number] CT ABD PELVIS W/CONT [id number] < Continued> CC: Adelina Moncada MD; Faustino Ramirez; Geovanny Griffin Technologist:Maria Esther Fields RT(R),CT CTDI: DLP: Trnscb Date/Time: 03/09/2019 (1717) [email or web address] Orig Print D/T: S: 03/09/2019 (172) PAGE 2 Signed Report [id number] 12:43:00* Test Item Value Reference Range Interpretation Comments GLUBED (test code = GLUBED) 107 mg/dL 74-106 H Performed by certified photogravure press operator at [facility] [id number] 10:28:00* Test Item Value Reference Range Interpretation Comments GLUBED (test code = GLUBED) 72 mg/dL 74-106 L Performed by certified photogravure press operator at [facility] BASIC METABOLIC [id number] 03:36:00* Test Item Value Reference Range Interpretation Comments SODIUM (test code = NA) 141 mmol/L 136-145 N POTASSIUM (test code = K) 3.8 mmol/L 3.5-5.1 N CHLORIDE (test code = CL) 110.0 mmol/L 98-107 H CARBON DIOXIDE (test code = CO2) 27.0 mmol/L 21-32 N ANION GAP (test code = GAP) 7.8 10-20 L GLUCOSE (test code = GLU) 67 mg/dL 74-106 L BLOOD UREA NITROGEN (test code = BUN) 13 mg/dL 7-18 N GLOMERULAR FILTRATION RATE (test code = GFR) > 60 mL/min >=60 Estimated GFR by using Modified MDRD formula.Chronic kidney disease is defined as either kidney damageor GFR <60 mL/min/1.73 m2 for >3 months. CREATININE (test code = CREAT) 0.70 mg/dL 0.7-1.3 N BUN/CREATININE RATIO (test code = BUN/CREA) 19.3 10-20 N CALCIUM (test code = CA) 8.4 mg/dL 8.5-10.1 L CBC W/AUTO [id number] 03:23:00* Test Item Value Reference Range Interpretation Comments WHITE BLOOD CELL (test code = WBC) 12.1 K/mm3 4.5-12.5 N RED BLOOD CELL (test code = RBC) 2.92 mill/mm3 4.0-5.8 L HEMOGLOBIN (test code = HGB) 8.5 gram/dL 13.0-17.5 L HEMATOCRIT (test code = HCT) 27.7 % 42.0-52.0 L MEAN CELL VOLUME (test code = MCV) 94.9 fL 80-98 N MEAN CELL HGB (test code = MCH) 29.1 picogram 27.0-33.0 N MEAN CELL HGB CONCETRATION (test code = MCHC) 30.7 gram/dL 33.0-36. 0 L RED CELL DISTRIBUTION WIDTH (test code = RDW) 14.3 % 11.6-16. 2 N RED CELL DISTRIBUTION WIDTH SD (test code = RDW-SD) 49.9 fL 37 .0-51.0 N PLATELET COUNT (test code = PLT) 374 K/mm3 150-450 RESULT VERIFIED BY REPEAT ANALYSIS MEAN PLATELET VOLUME (test code = MPV) 8.5 fL 6.7-11.0 N NEUTROPHIL % (test code = NT%) 76.3 % 39.0-69.0 H IMMATURE GRANULOCYTE % (test code = IG%) 3.7 % 0.0-5.0 N LYMPHOCYTE % (test code = LY%) 12.7 % 25.0-55.0 L MONOCYTE % (test code = MO%) 4.8 % 0.0-10.0 N EOSINOPHIL % (test code = EO%) 2.0 % 0.0-5.0 N BASOPHIL % (test code = BA%) 0.5 % 0.0-1.0 N NUCLEATED RBC % (test code = NRBC%) 0.0 % 0-0 N NEUTROPHIL # (test code = NT#) 9.27 K/mm3 1.8-7.7 H IMMATURE GRANULOCYTE # (test code = IG#) 0.45 x10 3/uL 0-0.03 H LYMPHOCYTE # (test code = LY#) 1.54 K/mm3 1.0-5.0 N MONOCYTE # (test code = MO#) 0.58 K/mm3 0-0.8 N EOSINOPHIL # (test code = EO#) 0.24 K/mm3 0.0-0.5 N BASOPHIL # (test code = BA#) 0.06 K/mm3 0.0-0.2 N NUCLEATED RBC # (test code = NRBC#) 0.00 K/mm3 0.0-0.1 N MANUAL DIFF REQUIRED (test code = MDIFF) NO [id number] 21:21:00* Test Item Value Reference Range Interpretation Comments GLUBED (test code = GLUBED) 162 mg/dL 74-106 H Performed by certified photogravure press operator at [facility] [id number] 16:37:00* Test Item Value Reference Range Interpretation Comments GLUBED (test code = GLUBED) 150 mg/dL 74-106 H Performed by certified photogravure press operator at [facility] [id number] 11:56:00* Test Item Value Reference Range Interpretation Comments GLUBED (test code = GLUBED) 181 mg/dL 74-106 H Performed by certified photogravure press operator at [facility] [id number] 08:00:00* Test Item Value Reference Range Interpretation Comments GLUBED (test code = GLUBED) 75 mg/dL 74-106 N Performed by certified photogravure press operator at [facility] BASIC METABOLIC [id number] 03:19:00* Test Item Value Reference Range Interpretation Comments SODIUM (test code = NA) 143 mmol/L 136-145 N POTASSIUM (test code = K) 4.2 mmol/L 3.5-5.1 N CHLORIDE (test code = CL) 109.0 mmol/L 98-107 H CARBON DIOXIDE (test code = CO2) 26.0 mmol/L 21-32 N ANION GAP (test code = GAP) 12.2 10-20 N GLUCOSE (test code = GLU) 116 mg/dL 74-106 H BLOOD UREA NITROGEN (test code = BUN) 15 mg/dL 7-18 N GLOMERULAR FILTRATION RATE (test code = GFR) > 60 mL/min >=60 Estimated GFR by using Modified MDRD formula.Chronic kidney disease is defined as either kidney damageor GFR <60 mL/min/1.73 m2 for >3 months. CREATININE (test code = CREAT) 0.70 mg/dL 0.7-1.3 N BUN/CREATININE RATIO (test code = BUN/CREA) 22.1 10-20 H CALCIUM (test code = CA) 8.5 mg/dL 8.5-10.1 N BASIC METABOLIC [id number] 03:16:00* Test Item Value Reference Range Interpretation Comments SODIUM (test code = NA) 143 mmol/L 136-145 N POTASSIUM (test code = K) 4.2 mmol/L 3.5-5.1 N CHLORIDE (test code = CL) 109.0 mmol/L 98-107 H CARBON DIOXIDE (test code = CO2) mmol/L 21-32 ANION GAP (test code = GAP) 10-20 GLUCOSE (test code = GLU) mg/dL 74-106 BLOOD UREA NITROGEN (test code = BUN) mg/dL 7-18 GLOMERULAR FILTRATION RATE (test code = GFR) mL/min >=60 CREATININE (test code = CREAT) mg/dL 0.7-1.3 BUN/CREATININE RATIO (test code = BUN/CREA) 10-20 CALCIUM (test code = CA) mg/dL 8.5-10.1 CBC W/AUTO [id number] 02:06:00* Test Item Value Reference Range Interpretation Comments WHITE BLOOD CELL (test code = WBC) 11.6 K/mm3 4.5-12.5 N RED BLOOD CELL (test code = RBC) 3.06 mill/mm3 4.0-5.8 L HEMOGLOBIN (test code = HGB) 8.9 gram/dL 13.0-17.5 L HEMATOCRIT (test code = HCT) 28.0 % 42.0-52.0 L MEAN CELL VOLUME (test code = MCV) 91.5 fL 80-98 N MEAN CELL HGB (test code = MCH) 29.1 picogram 27.0-33.0 N MEAN CELL HGB CONCETRATION (test code = MCHC) 31.8 gram/dL 33.0-36. 0 L RED CELL DISTRIBUTION WIDTH (test code = RDW) 14.3 % 11.6-16. 2 N RED CELL DISTRIBUTION WIDTH SD (test code = RDW-SD) 47.9 fL 37 .0-51.0 N PLATELET COUNT (test code = PLT) 428 K/mm3 150-450 N MEAN PLATELET VOLUME (test code = MPV) 9.0 fL 6.7-11.0 N NEUTROPHIL % (test code = NT%) 78.0 % 39.0-69.0 H IMMATURE GRANULOCYTE % (test code = IG%) 4.2 % 0.0-5.0 N LYMPHOCYTE % (test code = LY%) 10.5 % 25.0-55.0 L MONOCYTE % (test code = MO%) 5.0 % 0.0-10.0 N EOSINOPHIL % (test code = EO%) 1.6 % 0.0-5.0 N BASOPHIL % (test code = BA%) 0.7 % 0.0-1.0 N NUCLEATED RBC % (test code = NRBC%) 0.0 % 0-0 N NEUTROPHIL # (test code = NT#) 9.07 K/mm3 1.8-7.7 H IMMATURE GRANULOCYTE # (test code = IG#) 0.49 x10 3/uL 0-0.03 H LYMPHOCYTE # (test code = LY#) 1.22 K/mm3 1.0-5.0 N MONOCYTE # (test code = MO#) 0.58 K/mm3 0-0.8 N EOSINOPHIL # (test code = EO#) 0.19 K/mm3 0.0-0.5 N BASOPHIL # (test code = BA#) 0.08 K/mm3 0.0-0.2 N NUCLEATED RBC # (test code = NRBC#) 0.00 K/mm3 0.0-0.1 N MANUAL DIFF REQUIRED (test code = MDIFF) NO [id number] 21:28:00* Test Item Value Reference Range Interpretation Comments GLUBED (test code = GLUBED) 119 mg/dL 74-106 H Performed by certified photogravure press operator at [facility] [id number] 18:25:00* Test Item Value Reference Range Interpretation Comments GLUBED (test code = GLUBED) 132 mg/dL 74-106 H Performed by certified photogravure press operator at [facility] [id number] 18:24:00* Test Item Value Reference Range Interpretation Comments GLUBED (test code = GLUBED) 105 mg/dL 74-106 N Performed by certified photogravure press operator at [facility] [id number] 11:58:00* Test Item Value Reference Range Interpretation Comments GLUBED (test code = GLUBED) 84 mg/dL 74-106 N Performed by certified photogravure press operator at [facility] [id number] 10:40:00* Test Item Value Reference Range Interpretation Comments GLUBED (test code = GLUBED) 142 mg/dL 74-106 H Performed by certified photogravure press operator at [facility] BASIC METABOLIC [id number] 02:40:00* Test Item Value Reference Range Interpretation Comments SODIUM (test code = NA) 143 mmol/L 136-145 N POTASSIUM (test code = K) 3.7 mmol/L 3.5-5.1 N CHLORIDE (test code = CL) 110.0 mmol/L 98-107 H CARBON DIOXIDE (test code = CO2) mmol/L 21-32 ANION GAP (test code = GAP) 10-20 GLUCOSE (test code = GLU) mg/dL 74-106 BLOOD UREA NITROGEN (test code = BUN) mg/dL 7-18 GLOMERULAR FILTRATION RATE (test code = GFR) mL/min >=60 CREATININE (test code = CREAT) mg/dL 0.7-1.3 BUN/CREATININE RATIO (test code = BUN/CREA) 10-20 CALCIUM (test code = CA) mg/dL 8.5-10.1 BASIC METABOLIC [id number] 02:40:00* Test Item Value Reference Range Interpretation Comments SODIUM (test code = NA) 143 mmol/L 136-145 N POTASSIUM (test code = K) 3.7 mmol/L 3.5-5.1 N CHLORIDE (test code = CL) 110.0 mmol/L 98-107 H CARBON DIOXIDE (test code = CO2) 26.0 mmol/L 21-32 N ANION GAP (test code = GAP) 10.7 10-20 N GLUCOSE (test code = GLU) 131 mg/dL 74-106 H BLOOD UREA NITROGEN (test code = BUN) 16 mg/dL 7-18 N GLOMERULAR FILTRATION RATE (test code = GFR) > 60 mL/min >=60 Estimated GFR by using Modified MDRD formula.Chronic kidney disease is defined as either kidney damageor GFR <60 mL/min/1.73 m2 for >3 months. CREATININE (test code = CREAT) 0.80 mg/dL 0.7-1.3 N BUN/CREATININE RATIO (test code = BUN/CREA) 20.2 10-20 H CALCIUM (test code = CA) 8.2 mg/dL 8.5-10.1 L CBC W/AUTO [id number] 02:23:00* Test Item Value Reference Range Interpretation Comments WHITE BLOOD CELL (test code = WBC) 11.0 K/mm3 4.5-12.5 N RED BLOOD CELL (test code = RBC) 2.82 mill/mm3 4.0-5.8 L HEMOGLOBIN (test code = HGB) 8.1 gram/dL 13.0-17.5 L HEMATOCRIT (test code = HCT) 25.9 % 42.0-52.0 L MEAN CELL VOLUME (test code = MCV) 91.8 fL 80-98 N MEAN CELL HGB (test code = MCH) 28.7 picogram 27.0-33.0 N MEAN CELL HGB CONCETRATION (test code = MCHC) 31.3 gram/dL 33.0-36. 0 L RED CELL DISTRIBUTION WIDTH (test code = RDW) 14.2 % 11.6-16. 2 N RED CELL DISTRIBUTION WIDTH SD (test code = RDW-SD) 48.2 fL 37 .0-51.0 N PLATELET COUNT (test code = PLT) 393 K/mm3 150-450 N MEAN PLATELET VOLUME (test code = MPV) 8.9 fL 6.7-11.0 N NEUTROPHIL % (test code = NT%) 79.3 % 39.0-69.0 H IMMATURE GRANULOCYTE % (test code = IG%) 3.1 % 0.0-5.0 N LYMPHOCYTE % (test code = LY%) 10.1 % 25.0-55.0 L MONOCYTE % (test code = MO%) 5.6 % 0.0-10.0 N EOSINOPHIL % (test code = EO%) 1.4 % 0.0-5.0 N BASOPHIL % (test code = BA%) 0.5 % 0.0-1.0 N NUCLEATED RBC % (test code = NRBC%) 0.0 % 0-0 N NEUTROPHIL # (test code = NT#) 8.74 K/mm3 1.8-7.7 H IMMATURE GRANULOCYTE # (test code = IG#) 0.34 x10 3/uL 0-0.03 H LYMPHOCYTE # (test code = LY#) 1.12 K/mm3 1.0-5.0 N MONOCYTE # (test code = MO#) 0.62 K/mm3 0-0.8 N EOSINOPHIL # (test code = EO#) 0.16 K/mm3 0.0-0.5 N BASOPHIL # (test code = BA#) 0.06 K/mm3 0.0-0.2 N NUCLEATED RBC # (test code = NRBC#) 0.00 K/mm3 0.0-0.1 N MANUAL DIFF REQUIRED (test code = MDIFF) NO [id number] 21:41:00* Test Item Value Reference Range Interpretation Comments GLUBED (test code = GLUBED) 174 mg/dL 74-106 H Performed by certified photogravure press operator at [facility] [id number] 16:48:00* Test Item Value Reference Range Interpretation Comments GLUBED (test code = GLUBED) 184 mg/dL 74-106 H Performed by certified photogravure press operator at [facility] [id number] 08:03:00* Test Item Value Reference Range Interpretation Comments GLUBED (test code = GLUBED) 93 mg/dL 74-106 N Performed by certified photogravure press operator at [facility] BASIC METABOLIC [id number] 06:51:00* Test Item Value Reference Range Interpretation Comments SODIUM (test code = NA) 141 mmol/L 136-145 N POTASSIUM (test code = K) 3.5 mmol/L 3.5-5.1 N CHLORIDE (test code = CL) 110.0 mmol/L 98-107 H CARBON DIOXIDE (test code = CO2) 24.0 mmol/L 21-32 N ANION GAP (test code = GAP) 10.5 10-20 N GLUCOSE (test code = GLU) 77 mg/dL 74-106 N BLOOD UREA NITROGEN (test code = BUN) 16 mg/dL 7-18 N GLOMERULAR FILTRATION RATE (test code = GFR) > 60 mL/min >=60 Estimated GFR by using Modified MDRD formula.Chronic kidney disease is defined as either kidney damageor GFR <60 mL/min/1.73 m2 for >3 months. CREATININE (test code = CREAT) 0.80 mg/dL 0.7-1.3 N BUN/CREATININE RATIO (test code = BUN/CREA) 20.2 10-20 H CALCIUM (test code = CA) 8.4 mg/dL 8.5-10.1 L BASIC METABOLIC [id number] 06:46:00* Test Item Value Reference Range Interpretation Comments SODIUM (test code = NA) 141 mmol/L 136-145 N POTASSIUM (test code = K) 3.5 mmol/L 3.5-5.1 N CHLORIDE (test code = CL) 110.0 mmol/L 98-107 H CARBON DIOXIDE (test code = CO2) mmol/L 21-32 ANION GAP (test code = GAP) 10-20 GLUCOSE (test code = GLU) mg/dL 74-106 BLOOD UREA NITROGEN (test code = BUN) mg/dL 7-18 GLOMERULAR FILTRATION RATE (test code = GFR) mL/min >=60 CREATININE (test code = CREAT) mg/dL 0.7-1.3 BUN/CREATININE RATIO (test code = BUN/CREA) 10-20 CALCIUM (test code = CA) mg/dL 8.5-10.1 CBC W/AUTO [id number] 06:45:00* Test Item Value Reference Range Interpretation Comments WHITE BLOOD CELL (test code = WBC) 11.4 K/mm3 4.5-12.5 N RED BLOOD CELL (test code = RBC) 2.76 mill/mm3 4.0-5.8 L HEMOGLOBIN (test code = HGB) 7.9 gram/dL 13.0-17.5 L HEMATOCRIT (test code = HCT) 25.9 % 42.0-52.0 L MEAN CELL VOLUME (test code = MCV) 93.8 fL 80-98 N MEAN CELL HGB (test code = MCH) 28.6 picogram 27.0-33.0 N MEAN CELL HGB CONCETRATION (test code = MCHC) 30.5 gram/dL 33.0-36. 0 L RED CELL DISTRIBUTION WIDTH (test code = RDW) 14.3 % 11.6-16. 2 N RED CELL DISTRIBUTION WIDTH SD (test code = RDW-SD) 48.6 fL 37 .0-51.0 N PLATELET COUNT (test code = PLT) 373 K/mm3 150-450 N MEAN PLATELET VOLUME (test code = MPV) 8.9 fL 6.7-11.0 N NEUTROPHIL % (test code = NT%) 78.3 % 39.0-69.0 H IMMATURE GRANULOCYTE % (test code = IG%) 4.2 % 0.0-5.0 N LYMPHOCYTE % (test code = LY%) 9.4 % 25.0-55.0 L MONOCYTE % (test code = MO%) 6.4 % 0.0-10.0 N EOSINOPHIL % (test code = EO%) 1.1 % 0.0-5.0 N BASOPHIL % (test code = BA%) 0.6 % 0.0-1.0 N NUCLEATED RBC % (test code = NRBC%) 0.0 % 0-0 N NEUTROPHIL # (test code = NT#) 8.93 K/mm3 1.8-7.7 H IMMATURE GRANULOCYTE # (test code = IG#) 0.48 x10 3/uL 0-0.03 H LYMPHOCYTE # (test code = LY#) 1.07 K/mm3 1.0-5.0 N MONOCYTE # (test code = MO#) 0.73 K/mm3 0-0.8 N EOSINOPHIL # (test code = EO#) 0.13 K/mm3 0.0-0.5 N BASOPHIL # (test code = BA#) 0.07 K/mm3 0.0-0.2 N NUCLEATED RBC # (test code = NRBC#) 0.00 K/mm3 0.0-0.1 N [id number] 05:52:00* Test Item Value Reference Range Interpretation Comments GLUBED (test code = GLUBED) 94 mg/dL 74-106 N Performed by certified photogravure press operator at [facility] [id number] 05:52:00* Test Item Value Reference Range Interpretation Comments GLUBED (test code = GLUBED) 69 mg/dL 74-106 L Performed by certified photogravure press operator at [facility] [id number] 20:57:00* Test Item Value Reference Range Interpretation Comments GLUBED (test code = GLUBED) 173 mg/dL 74-106 H Performed by certified photogravure press operator at [facility] [id number] 13:35:00* Test Item Value Reference Range Interpretation Comments GLUBED (test code = GLUBED) 82 mg/dL 74-106 N Performed by certified photogravure press operator at [facility] [id number] 11:55:00* Test Item Value Reference Range Interpretation Comments GLUBED (test code = GLUBED) 95 mg/dL 74-106 N Performed by certified photogravure press operator at [facility] COAGULATION TIME [id number] 11:38:00* Test Item Value Reference Range Interpretation Comments COAGULATION TIME ACTIVATED (test code = ACT) 114 seconds 62.8-88.0 H COAGULATION TIME [id number] 10:50:00* Test Item Value Reference Range Interpretation Comments COAGULATION TIME ACTIVATED (test code = ACT) 203 seconds 62.8-88.0 H COAGULATION TIME [id number] 09:45:00* Test Item Value Reference Range Interpretation Comments COAGULATION TIME ACTIVATED (test code = ACT) 200 seconds 62.8-88.0 H BASIC METABOLIC [id number] 06:15:00* Test Item Value Reference Range Interpretation Comments SODIUM (test code = NA) 139 mmol/L 136-145 N POTASSIUM (test code = K) 3.6 mmol/L 3.5-5.1 N CHLORIDE (test code = CL) 106.0 mmol/L 98-107 N CARBON DIOXIDE (test code = CO2) 25.0 mmol/L 21-32 N ANION GAP (test code = GAP) 11.6 10-20 N GLUCOSE (test code = GLU) 67 mg/dL 74-106 L BLOOD UREA NITROGEN (test code = BUN) 15 mg/dL 7-18 N GLOMERULAR FILTRATION RATE (test code = GFR) > 60 mL/min >=60 Estimated GFR by using Modified MDRD formula.Chronic kidney disease is defined as either kidney damageor GFR <60 mL/min/1.73 m2 for >3 months. CREATININE (test code = CREAT) 0.70 mg/dL 0.7-1.3 N BUN/CREATININE RATIO (test code = BUN/CREA) 21.7 10-20 H CALCIUM (test code = CA) 8.4 mg/dL 8.5-10.1 L BASIC METABOLIC [id number] 05:50:00* Test Item Value Reference Range Interpretation Comments SODIUM (test code = NA) 139 mmol/L 136-145 N POTASSIUM (test code = K) 3.6 mmol/L 3.5-5.1 N CHLORIDE (test code = CL) 106.0 mmol/L 98-107 N CARBON DIOXIDE (test code = CO2) mmol/L 21-32 ANION GAP (test code = GAP) 10-20 GLUCOSE (test code = GLU) mg/dL 74-106 BLOOD UREA NITROGEN (test code = BUN) mg/dL 7-18 GLOMERULAR FILTRATION RATE (test code = GFR) mL/min >=60 CREATININE (test code = CREAT) mg/dL 0.7-1.3 BUN/CREATININE RATIO (test code = BUN/CREA) 10-20 CALCIUM (test code = CA) mg/dL 8.5-10.1 CBC W/AUTO [id number] 05:42:00* Test Item Value Reference Range Interpretation Comments WHITE BLOOD CELL (test code = WBC) 11.8 K/mm3 4.5-12.5 N RED BLOOD CELL (test code = RBC) 3.05 mill/mm3 4.0-5.8 L HEMOGLOBIN (test code = HGB) 8.9 gram/dL 13.0-17.5 L HEMATOCRIT (test code = HCT) 28.1 % 42.0-52.0 L MEAN CELL VOLUME (test code = MCV) 92.1 fL 80-98 N MEAN CELL HGB (test code = MCH) 29.2 picogram 27.0-33.0 N MEAN CELL HGB CONCETRATION (test code = MCHC) 31.7 gram/dL 33.0-36. 0 L RED CELL DISTRIBUTION WIDTH (test code = RDW) 14.1 % 11.6-16. 2 N RED CELL DISTRIBUTION WIDTH SD (test code = RDW-SD) 47.7 fL 37 .0-51.0 N PLATELET COUNT (test code = PLT) 375 K/mm3 150-450 N MEAN PLATELET VOLUME (test code = MPV) 8.6 fL 6.7-11.0 N NEUTROPHIL % (test code = NT%) 73.4 % 39.0-69.0 H IMMATURE GRANULOCYTE % (test code = IG%) 4.9 % 0.0-5.0 N LYMPHOCYTE % (test code = LY%) 13.7 % 25.0-55.0 L MONOCYTE % (test code = MO%) 5.9 % 0.0-10.0 N EOSINOPHIL % (test code = EO%) 1.4 % 0.0-5.0 N BASOPHIL % (test code = BA%) 0.7 % 0.0-1.0 N NUCLEATED RBC % (test code = NRBC%) 0.0 % 0-0 N NEUTROPHIL # (test code = NT#) 8.66 K/mm3 1.8-7.7 H IMMATURE GRANULOCYTE # (test code = IG#) 0.58 x10 3/uL 0-0.03 H LYMPHOCYTE # (test code = LY#) 1.61 K/mm3 1.0-5.0 N MONOCYTE # (test code = MO#) 0.70 K/mm3 0-0.8 N EOSINOPHIL # (test code = EO#) 0.16 K/mm3 0.0-0.5 N BASOPHIL # (test code = BA#) 0.08 K/mm3 0.0-0.2 N NUCLEATED RBC # (test code = NRBC#) 0.00 K/mm3 0.0-0.1 N MANUAL DIFF REQUIRED (test code = MDIFF) NO [id number] 22:33:00* Test Item Value Reference Range Interpretation Comments GLUBED (test code = GLUBED) 127 mg/dL 74-106 H Performed by certified photogravure press operator at [facility] [id number] 20:53:00* Test Item Value Reference Range Interpretation Comments GLUBED (test code = GLUBED) 162 mg/dL 74-106 H Performed by certified photogravure press operator at [facility] - CTA ABD AORTA IF LWEX [id number] 19:41:00 Name: XOCHILT EPSTEIN [facility] : 1940 Age/S: 78 / M [address] [facility] Unit #: [id number] Loc: [facility] [place] [address] Phys: Nida Faust NP Acct: [id number] Dis Date: Status: ADM IN PHONE #: [phone] Exam Date: 03/04/2019 1710 FAX #: [phone] Reason: PAD EXAMS: CPT CODE: [id number] [place] [id number] EXAM: CT angiography of the abdominal aorta, iliac vessels and both lower extremities; INFORMATION: Severe peripheral arterial disease; TECHNIQUE AND FINDINGS: CT dose reduction protocol; Helical scans were obtained through the abdomen, pelvis and the lower extremities during intravenous infusion of contrast material. Multiplanar reconstructions were obtained. In addition, 3- D angiographic studies were generated on an independent workstation, using volume rendering and maximum intensity projection algorithms. The abdominal aorta is widely patent. It shows atherosclerotic changes; no stenosis. Celiac artery, SMA, renal arteries and LYDIA are patent. Iliac arteries show moderate atherosclerotic changes but are otherwise widely patent. Right leg: The right common femoral artery, right SFA and right profunda femoris arteries are patent. These vessels show atherosclerotic changes but no significant stenosis. The right popliteal artery is patent. There is triple-vessel infrapopliteal runoff with extensive calcifications of the peroneal and posterior tibial artery these vessels show intermittent occlusions. The right anterior tibial artery is patent and there is opacification of a small caliber dorsalis pedis artery and of a partially calcified plantar pedis artery. Left leg: The left common and profunda femoris arteries are patent with atherosclerotic changes. The left SFA shows extensive calcifications and is occluded distally. Significant calcifications of the popliteal artery which is nonenhancing. Small collaterals supply of the stump. Status post left BKA. Axial source images show rec tosigmoid stool impaction. IMPRESSION: 1. Good inflow vi a a patent aorta and patent iliac arteries. 2. Extensive atherosclerotic changes of the right femoropopliteal PAGE 1 Signed R eport (CONTINUED) Name: XOCHILT EPSTEIN [facility] : 1940 Age/S: 78 / M [address] [facility] Unit #: [id number] Loc: [place] [address] Phys: Nida Faust NP Acct: [id number] Dis Date: Status: ADM IN PHONE #: [phone] Exam Date: 03/04/2019 1710 FAX #: [phone] Reason: PAD EXAMS: CPT CODE: [id number] [place] [address] <Continued> vessels, which are otherwise patent. 3. Poor infrapopliteal runoff via a patent anterior tibial artery with extensive calcifications and intermittent occlusions of the right posterior and peroneal arteries. 4. The right dorsalis pedis and plantar pedis arteries are perfused and of small caliber. 5. Occlusion of the distal left SFA and status post left BKA with small caliber collaterals supplying the stump. 6. Rectosigmoid stool impaction. Location code: [facility] at 1941 Reported and signed by: Guille Liao M.D. CC: Loraine Meehan MD; Faustino Ramirez; Nida Faust NP Technologist:Elissa Rodriguez RT(R); [place] CTDI: DLP: Trnscb Date/Time: 03/04/2019 (1940) FernandoGRW Orig Print D/T: S: 03/04/2019 (1943) PAGE 2 Signed Report [id number] 16:51:00* Test Item Value Reference Range Interpretation Comments GLUBED (test code = GLUBED) 183 mg/dL 74-106 H Performed by certified photogravure press operator at [facility] [id number] 12:32:00* Test Item Value Reference Range Interpretation Comments GLUBED (test code = GLUBED) 79 mg/dL 74-106 N Performed by certified photogravure press operator at [facility] [id number] 12:12:00* Test Item Value Reference Range Interpretation Comments GLUBED (test code = GLUBED) 60 mg/dL 74-106 L Performed by certified photogravure press operator at [facility] CBC W/MANUAL [id number] 09:15:00* Test Item Value Reference Range Interpretation Comments WHITE BLOOD CELL (test code = WBC) 12.5 K/mm3 4.5-12.5 N RED BLOOD CELL (test code = RBC) 3.31 mill/mm3 4.0-5.8 L HEMOGLOBIN (test code = HGB) 9.7 gram/dL 13.0-17.5 L HEMATOCRIT (test code = HCT) 31.5 % 42.0-52.0 L MEAN CELL VOLUME (test code = MCV) 95.2 fL 80-98 N MEAN CELL HGB (test code = MCH) 29.3 picogram 27.0-33.0 N MEAN CELL HGB CONCETRATION (test code = MCHC) 30.8 gram/dL 33.0-36. 0 L RED CELL DISTRIBUTION WIDTH (test code = RDW) 13.8 % 11.6-16. 2 N RED CELL DISTRIBUTION WIDTH SD (test code = RDW-SD) 48.1 fL 37 .0-51.0 N PLATELET COUNT (test code = PLT) 374 K/mm3 150-450 N MEAN PLATELET VOLUME (test code = MPV) 8.6 fL 6.7-11.0 N IMMATURE GRANULOCYTE % (test code = IG%) 3.8 % 0.0-5.0 N NUCLEATED RBC % (test code = NRBC%) 0.0 % 0-0 N NEUTROPHIL # (test code = NT#) 10.16 K/mm3 1.8-7.7 H IMMATURE GRANULOCYTE # (test code = IG#) 0.47 x10 3/uL 0-0.03 H LYMPHOCYTE # (test code = LY#) 1.10 K/mm3 1.0-5.0 N MONOCYTE # (test code = MO#) 0.60 K/mm3 0-0.8 N EOSINOPHIL # (test code = EO#) 0.13 K/mm3 0.0-0.5 N BASOPHIL # (test code = BA#) 0.03 K/mm3 0.0-0.2 N NUCLEATED RBC # (test code = NRBC#) 0.00 K/mm3 0.0-0.1 N MANUAL DIFF REQUIRED (test code = MDIFF) YES STAIN ACCEPTABILITY (test code = STN ACCEPTABLE) STAIN ACCEPTABLE TOTAL CELLS COUNTED (test code = TCC) 100 #CELLS SEGMENTED NEUTROPHILS (test code = SEG) 81 % 39-69 H BAND NEUTROPHIL (test code = BAND) 2 % 0-10 N LYMPHOCYTE (test code = LYMPH) 8 % 25-55 L MONOCYTE (test code = MON) 7 % 0-10 N EOSINOPHIL (test code = EOS) 2 % 0.0-5.0 N POLYCHROMASIA (test code = POLC) 1+ POIKILOCYTOSIS (test code = POIK) 1+ ANISOCYTOSIS (test code = ANISO) 2+ PLATELET ESTIMATE (test code = PLTEST) ADEQUATE PLATELET MORPHOLOGY (test code = PLTMORPH) NORMAL BASIC METABOLIC [id number] 08:30:00* Test Item Value Reference Range Interpretation Comments SODIUM (test code = NA) 138 mmol/L 136-145 N POTASSIUM (test code = K) 3.6 mmol/L 3.5-5.1 N CHLORIDE (test code = CL) 108.0 mmol/L 98-107 H CARBON DIOXIDE (test code = CO2) 21.0 mmol/L 21-32 N ANION GAP (test code = GAP) 12.6 10-20 N GLUCOSE (test code = GLU) 55 mg/dL 74-106 L BLOOD UREA NITROGEN (test code = BUN) 14 mg/dL 7-18 N GLOMERULAR FILTRATION RATE (test code = GFR) > 60 mL/min >=60 Estimated GFR by using Modified MDRD formula.Chronic kidney disease is defined as either kidney damageor GFR <60 mL/min/1.73 m2 for >3 months. CREATININE (test code = CREAT) 0.60 mg/dL 0.7-1.3 L BUN/CREATININE RATIO (test code = BUN/CREA) 23.9 10-20 H CALCIUM (test code = CA) 8.6 mg/dL 8.5-10.1 N BASIC METABOLIC [id number] 08:27:00* Test Item Value Reference Range Interpretation Comments SODIUM (test code = NA) 138 mmol/L 136-145 N POTASSIUM (test code = K) 3.6 mmol/L 3.5-5.1 N CHLORIDE (test code = CL) 108.0 mmol/L 98-107 H CARBON DIOXIDE (test code = CO2) mmol/L 21-32 ANION GAP (test code = GAP) 10-20 GLUCOSE (test code = GLU) mg/dL 74-106 BLOOD UREA NITROGEN (test code = BUN) mg/dL 7-18 GLOMERULAR FILTRATION RATE (test code = GFR) mL/min >=60 CREATININE (test code = CREAT) mg/dL 0.7-1.3 BUN/CREATININE RATIO (test code = BUN/CREA) 10-20 CALCIUM (test code = CA) mg/dL 8.5-10.1 CBC W/MANUAL [id number] 08:08:00* Test Item Value Reference Range Interpretation Comments WHITE BLOOD CELL (test code = WBC) 12.5 K/mm3 4.5-12.5 N RED BLOOD CELL (test code = RBC) 3.31 mill/mm3 4.0-5.8 L HEMOGLOBIN (test code = HGB) 9.7 gram/dL 13.0-17.5 L HEMATOCRIT (test code = HCT) 31.5 % 42.0-52.0 L MEAN CELL VOLUME (test code = MCV) 95.2 fL 80-98 N MEAN CELL HGB (test code = MCH) 29.3 picogram 27.0-33.0 N MEAN CELL HGB CONCETRATION (test code = MCHC) 30.8 gram/dL 33.0-36. 0 L RED CELL DISTRIBUTION WIDTH (test code = RDW) 13.8 % 11.6-16. 2 N RED CELL DISTRIBUTION WIDTH SD (test code = RDW-SD) 48.1 fL 37 .0-51.0 N PLATELET COUNT (test code = PLT) 374 K/mm3 150-450 N MEAN PLATELET VOLUME (test code = MPV) 8.6 fL 6.7-11.0 N IMMATURE GRANULOCYTE % (test code = IG%) 3.8 % 0.0-5.0 N NUCLEATED RBC % (test code = NRBC%) 0.0 % 0-0 N NEUTROPHIL # (test code = NT#) 10.16 K/mm3 1.8-7.7 H IMMATURE GRANULOCYTE # (test code = IG#) 0.47 x10 3/uL 0-0.03 H LYMPHOCYTE # (test code = LY#) 1.10 K/mm3 1.0-5.0 N MONOCYTE # (test code = MO#) 0.60 K/mm3 0-0.8 N EOSINOPHIL # (test code = EO#) 0.13 K/mm3 0.0-0.5 N BASOPHIL # (test code = BA#) 0.03 K/mm3 0.0-0.2 N NUCLEATED RBC # (test code = NRBC#) 0.00 K/mm3 0.0-0.1 N MANUAL DIFF REQUIRED (test code = MDIFF) YES STAIN ACCEPTABILITY (test code = STN ACCEPTABLE) TOTAL CELLS COUNTED (test code = TCC) #CELLS SEGMENTED NEUTROPHILS (test code = SEG) % 39-69 LYMPHOCYTE (test code = LYMPH) % 25-55 MONOCYTE (test code = MON) % 0-10 MORPHOLOGY COMMENT (test code = MOC) PLATELET ESTIMATE (test code = PLTEST) PLATELET MORPHOLOGY (test code = PLTMORPH) CBC W/MANUAL [id number] 08:07:00* Test Item Value Reference Range Interpretation Comments WHITE BLOOD CELL (test code = WBC) 12.5 K/mm3 4.5-12.5 N RED BLOOD CELL (test code = RBC) 3.31 mill/mm3 4.0-5.8 L HEMOGLOBIN (test code = HGB) 9.7 gram/dL 13.0-17.5 L HEMATOCRIT (test code = HCT) 31.5 % 42.0-52.0 L MEAN CELL VOLUME (test code = MCV) 95.2 fL 80-98 N MEAN CELL HGB (test code = MCH) 29.3 picogram 27.0-33.0 N MEAN CELL HGB CONCETRATION (test code = MCHC) 30.8 gram/dL 33.0-36. 0 L RED CELL DISTRIBUTION WIDTH (test code = RDW) 13.8 % 11.6-16. 2 N RED CELL DISTRIBUTION WIDTH SD (test code = RDW-SD) 48.1 fL 37 .0-51.0 N PLATELET COUNT (test code = PLT) 374 K/mm3 150-450 N MEAN PLATELET VOLUME (test code = MPV) 8.6 fL 6.7-11.0 N IMMATURE GRANULOCYTE % (test code = IG%) 3.8 % 0.0-5.0 N NUCLEATED RBC % (test code = NRBC%) 0.0 % 0-0 N NEUTROPHIL # (test code = NT#) 10.16 K/mm3 1.8-7.7 H IMMATURE GRANULOCYTE # (test code = IG#) 0.47 x10 3/uL 0-0.03 H LYMPHOCYTE # (test code = LY#) 1.10 K/mm3 1.0-5.0 N MONOCYTE # (test code = MO#) 0.60 K/mm3 0-0.8 N EOSINOPHIL # (test code = EO#) 0.13 K/mm3 0.0-0.5 N BASOPHIL # (test code = BA#) 0.03 K/mm3 0.0-0.2 N NUCLEATED RBC # (test code = NRBC#) 0.00 K/mm3 0.0-0.1 N MANUAL DIFF REQUIRED (test code = MDIFF) YES STAIN ACCEPTABILITY (test code = STN ACCEPTABLE) TOTAL CELLS COUNTED (test code = TCC) #CELLS SEGMENTED NEUTROPHILS (test code = SEG) % 39-69 LYMPHOCYTE (test code = LYMPH) % 25-55 MONOCYTE (test code = MON) % 0-10 EOSINOPHIL (test code = EOS) % 0.0-5.0 CABOT RINGS (test code = CAB) MORPHOLOGY COMMENT (test code = MOC) PLATELET ESTIMATE (test code = PLTEST) PLATELET MORPHOLOGY (test code = PLTMORPH) CBC W/MANUAL [id number] 08:07:00* Test Item Value Reference Range Interpretation Comments WHITE BLOOD CELL (test code = WBC) 12.5 K/mm3 4.5-12.5 N RED BLOOD CELL (test code = RBC) 3.31 mill/mm3 4.0-5.8 L HEMOGLOBIN (test code = HGB) 9.7 gram/dL 13.0-17.5 L HEMATOCRIT (test code = HCT) 31.5 % 42.0-52.0 L MEAN CELL VOLUME (test code = MCV) 95.2 fL 80-98 N MEAN CELL HGB (test code = MCH) 29.3 picogram 27.0-33.0 N MEAN CELL HGB CONCETRATION (test code = MCHC) 30.8 gram/dL 33.0-36. 0 L RED CELL DISTRIBUTION WIDTH (test code = RDW) 13.8 % 11.6-16. 2 N RED CELL DISTRIBUTION WIDTH SD (test code = RDW-SD) 48.1 fL 37 .0-51.0 N PLATELET COUNT (test code = PLT) 374 K/mm3 150-450 N MEAN PLATELET VOLUME (test code = MPV) 8.6 fL 6.7-11.0 N IMMATURE GRANULOCYTE % (test code = IG%) 3.8 % 0.0-5.0 N NUCLEATED RBC % (test code = NRBC%) 0.0 % 0-0 N NEUTROPHIL # (test code = NT#) 10.16 K/mm3 1.8-7.7 H IMMATURE GRANULOCYTE # (test code = IG#) 0.47 x10 3/uL 0-0.03 H LYMPHOCYTE # (test code = LY#) 1.10 K/mm3 1.0-5.0 N MONOCYTE # (test code = MO#) 0.60 K/mm3 0-0.8 N EOSINOPHIL # (test code = EO#) 0.13 K/mm3 0.0-0.5 N BASOPHIL # (test code = BA#) 0.03 K/mm3 0.0-0.2 N NUCLEATED RBC # (test code = NRBC#) 0.00 K/mm3 0.0-0.1 N MANUAL DIFF REQUIRED (test code = MDIFF) YES STAIN ACCEPTABILITY (test code = STN ACCEPTABLE) TOTAL CELLS COUNTED (test code = TCC) #CELLS SEGMENTED NEUTROPHILS (test code = SEG) % 39-69 LYMPHOCYTE (test code = LYMPH) % 25-55 MONOCYTE (test code = MON) % 0-10 EOSINOPHIL (test code = EOS) % 0.0-5.0 CABOT RINGS (test code = CAB) MORPHOLOGY COMMENT (test code = MOC) PLATELET ESTIMATE (test code = PLTEST) PLATELET MORPHOLOGY (test code = PLTMORPH) CBC W/MANUAL [id number] 08:07:00* Test Item Value Reference Range Interpretation Comments WHITE BLOOD CELL (test code = WBC) 12.5 K/mm3 4.5-12.5 N RED BLOOD CELL (test code = RBC) 3.31 mill/mm3 4.0-5.8 L HEMOGLOBIN (test code = HGB) 9.7 gram/dL 13.0-17.5 L HEMATOCRIT (test code = HCT) 31.5 % 42.0-52.0 L MEAN CELL VOLUME (test code = MCV) 95.2 fL 80-98 N MEAN CELL HGB (test code = MCH) 29.3 picogram 27.0-33.0 N MEAN CELL HGB CONCETRATION (test code = MCHC) 30.8 gram/dL 33.0-36. 0 L RED CELL DISTRIBUTION WIDTH (test code = RDW) 13.8 % 11.6-16. 2 N RED CELL DISTRIBUTION WIDTH SD (test code = RDW-SD) 48.1 fL 37 .0-51.0 N PLATELET COUNT (test code = PLT) 374 K/mm3 150-450 N MEAN PLATELET VOLUME (test code = MPV) 8.6 fL 6.7-11.0 N IMMATURE GRANULOCYTE % (test code = IG%) 3.8 % 0.0-5.0 N NUCLEATED RBC % (test code = NRBC%) 0.0 % 0-0 N NEUTROPHIL # (test code = NT#) 10.16 K/mm3 1.8-7.7 H IMMATURE GRANULOCYTE # (test code = IG#) 0.47 x10 3/uL 0-0.03 H LYMPHOCYTE # (test code = LY#) 1.10 K/mm3 1.0-5.0 N MONOCYTE # (test code = MO#) 0.60 K/mm3 0-0.8 N EOSINOPHIL # (test code = EO#) 0.13 K/mm3 0.0-0.5 N BASOPHIL # (test code = BA#) 0.03 K/mm3 0.0-0.2 N NUCLEATED RBC # (test code = NRBC#) 0.00 K/mm3 0.0-0.1 N MANUAL DIFF REQUIRED (test code = MDIFF) YES STAIN ACCEPTABILITY (test code = STN ACCEPTABLE) TOTAL CELLS COUNTED (test code = TCC) #CELLS SEGMENTED NEUTROPHILS (test code = SEG) % 39-69 LYMPHOCYTE (test code = LYMPH) % 25-55 MONOCYTE (test code = MON) % 0-10 EOSINOPHIL (test code = EOS) % 0.0-5.0 MORPHOLOGY COMMENT (test code = MOC) PLATELET ESTIMATE (test code = PLTEST) PLATELET MORPHOLOGY (test code = PLTMORPH) CBC W/MANUAL [id number] 08:07:00* Test Item Value Reference Range Interpretation Comments WHITE BLOOD CELL (test code = WBC) 12.5 K/mm3 4.5-12.5 N RED BLOOD CELL (test code = RBC) 3.31 mill/mm3 4.0-5.8 L HEMOGLOBIN (test code = HGB) 9.7 gram/dL 13.0-17.5 L HEMATOCRIT (test code = HCT) 31.5 % 42.0-52.0 L MEAN CELL VOLUME (test code = MCV) 95.2 fL 80-98 N MEAN CELL HGB (test code = MCH) 29.3 picogram 27.0-33.0 N MEAN CELL HGB CONCETRATION (test code = MCHC) 30.8 gram/dL 33.0-36. 0 L RED CELL DISTRIBUTION WIDTH (test code = RDW) 13.8 % 11.6-16. 2 N RED CELL DISTRIBUTION WIDTH SD (test code = RDW-SD) 48.1 fL 37 .0-51.0 N PLATELET COUNT (test code = PLT) 374 K/mm3 150-450 N MEAN PLATELET VOLUME (test code = MPV) 8.6 fL 6.7-11.0 N IMMATURE GRANULOCYTE % (test code = IG%) 3.8 % 0.0-5.0 N NUCLEATED RBC % (test code = NRBC%) 0.0 % 0-0 N NEUTROPHIL # (test code = NT#) 10.16 K/mm3 1.8-7.7 H IMMATURE GRANULOCYTE # (test code = IG#) 0.47 x10 3/uL 0-0.03 H LYMPHOCYTE # (test code = LY#) 1.10 K/mm3 1.0-5.0 N MONOCYTE # (test code = MO#) 0.60 K/mm3 0-0.8 N EOSINOPHIL # (test code = EO#) 0.13 K/mm3 0.0-0.5 N BASOPHIL # (test code = BA#) 0.03 K/mm3 0.0-0.2 N NUCLEATED RBC # (test code = NRBC#) 0.00 K/mm3 0.0-0.1 N MANUAL DIFF REQUIRED (test code = MDIFF) YES STAIN ACCEPTABILITY (test code = STN ACCEPTABLE) TOTAL CELLS COUNTED (test code = TCC) #CELLS SEGMENTED NEUTROPHILS (test code = SEG) % 39-69 LYMPHOCYTE (test code = LYMPH) % 25-55 MONOCYTE (test code = MON) % 0-10 EOSINOPHIL (test code = EOS) % 0.0-5.0 CABOT RINGS (test code = CAB) MORPHOLOGY COMMENT (test code = MOC) PLATELET ESTIMATE (test code = PLTEST) PLATELET MORPHOLOGY (test code = PLTMORPH) [id number] 02:11:00* Test Item Value Reference Range Interpretation Comments TROPONIN-I (test code = TROPI) <0.015 ng/mL 0-0.045 N [id number] 23:02:00* Test Item Value Reference Range Interpretation Comments GLYCOSYLATED HEMOGLOBIN (HA1C) (test code = GLYHGB) 5.9 % HbA1 4. 8-6.0 N ESTIMATED AVERAGE GLUCOSE (test code = EAG) 123 MG/DL URINALYSIS [id number] 18:51:00* Test Item Value Reference Range Interpretation Comments UA COLOR (test code = COLU) Light-Arabi YELLOW UA APPEARANCE (test code = APPU) TURBID CLEAR A UA GLUCOSE DIPSTICK (test code = DGLUU) NEGATIVE mg/dL NEGATIVE UA BILIRUBIN DIPSTICK (test code = BILU) NEGATIVE mg/dL NEGATIVE UA KETONE DIPSTICK (test code = KETU) NEGATIVE mg/dL NEGATIVE UA SPECIFIC GRAVITY (test code = SGU) 1.015 1.001-1.035 UA BLOOD DIPSTICK (test code = SUSI) >1.0 mg/dL NEGATIVE UA PH DIPSTICK (test code = MELINDA) 5.5 5.0-8.0 UA PROTEIN DIPSTICK (test code = PROU) 50 (1+) mg/dL NEGATIVE A UA UROBILINIOGEN DIPSTICK (test code = URO) Normal mg/dL NEGATIVE UA NITRITE DIPSTICK (test code = MARIAMA) NEGATIVE NEGATIVE UA LEUKOCYTE ESTERASE W REFLEX (test code = LEUUR) 500 Rasheed/u L (3+) Rasheed/uL NEGATIVE A UA WBC (test code = WBCU) >200 per HPF 0-5 A UA RBC (test code = RBCU) >200 #/HPF 0-5 UA WBC CLUMPS (test code = WBCUCL) 3-6 /HPF NONE A UA EPITHELIAL CELLS (test code = EPIU) FEW per HPF FEW UA BACTERIA (test code = BACU) FEW #/HPF NONE A UA MUCUS (test code = MUCU) FEW #/LPF FEW UA YEAST (test code = YEASTU) MANY #/HPF NONE A Urine Source? Clean CatchURINALYSIS [id number] 18:46:00* Test Item Value Reference Range Interpretation Comments UA COLOR (test code = COLU) Light-Arabi YELLOW UA APPEARANCE (test code = APPU) TURBID CLEAR A UA GLUCOSE DIPSTICK (test code = DGLUU) NEGATIVE mg/dL NEGATIVE UA BILIRUBIN DIPSTICK (test code = BILU) NEGATIVE mg/dL NEGATIVE UA KETONE DIPSTICK (test code = KETU) NEGATIVE mg/dL NEGATIVE UA SPECIFIC GRAVITY (test code = SGU) 1.015 1.001-1.035 UA BLOOD DIPSTICK (test code = SUSI) >1.0 mg/dL NEGATIVE UA PH DIPSTICK (test code = MELINDA) 5.5 5.0-8.0 UA PROTEIN DIPSTICK (test code = PROU) 50 (1+) mg/dL NEGATIVE A UA UROBILINIOGEN DIPSTICK (test code = URO) Normal mg/dL NEGATIVE UA NITRITE DIPSTICK (test code = MARIAMA) NEGATIVE NEGATIVE UA LEUKOCYTE ESTERASE W REFLEX (test code = LEUUR) 500 Rasheed/u L (3+) Rasheed/uL NEGATIVE A UA WBC (test code = WBCU) per HPF 0-5 UA RBC (test code = RBCU) per HPF 0-5 UA EPITHELIAL CELLS (test code = EPIU) per HPF Few UA BACTERIA (test code = BACU) per HPF NONE Urine Source? Clean CatchBASIC METABOLIC [id number] 18:33:00* Test Item Value Reference Range Interpretation Comments SODIUM (test code = NA) 139 mmol/L 136-145 N POTASSIUM (test code = K) 4.1 mmol/L 3.5-5.1 N CHLORIDE (test code = CL) 106.0 mmol/L 98-107 N CARBON DIOXIDE (test code = CO2) 25.0 mmol/L 21-32 N ANION GAP (test code = GAP) 12.1 10-20 N GLUCOSE (test code = GLU) 103 mg/dL 74-106 N BLOOD UREA NITROGEN (test code = BUN) 14 mg/dL 7-18 N GLOMERULAR FILTRATION RATE (test code = GFR) > 60 mL/min >=60 Estimated GFR by using Modified MDRD formula.Chronic kidney disease is defined as either kidney damageor GFR <60 mL/min/1.73 m2 for >3 months. CREATININE (test code = CREAT) 0.80 mg/dL 0.7-1.3 N BUN/CREATININE RATIO (test code = BUN/CREA) 17.5 10-20 N CALCIUM (test code = CA) 9.2 mg/dL 8.5-10.1 N CPK-MB [id number] 18:33:00* Test Item Value Reference Range Interpretation Comments CREATINE KINASE (CK) (test code = CK) 23 IUnit/L 26-208 L CKMB (test code = CKMBT) < 1.0 ng/mL 0-6.0 N RELATIVE % INDEX (test code = REL%) 4.35 % 0.00-2.50 H "If the total CK is elevated, the CKMB Fraction must beinterpreted as a Relative % Index, Normal is less than 2.5%"NOTE: Relative % Index is not valid with a normal total CK. PROTHROMBIN [id number] 18:20:00* Test Item Value Reference Range Interpretation Comments PROTHROMBIN TIME PATIENT (test code = PTP) 13.8 seconds 9.0-14.0 N INTERNATIONAL NORMAL RATIO (test code = INR) 1.2 0.8-1.2 N The therapeutic range for oral anticoagulant therapy formost indications is an international normalized ratio (INR)of between 2.0 and 3.0. The recommended therapeutic INRrange for various clinical situations is listed below: Clinical Situation INR range Pulmonary e mbolism treatment (2.0-3.0)Venous thrombosis treatmentVenous thrombosis prophylaxis (high risk surgery)Prevention of systemic embolism from: Acute myocardial infarction Valvular heart disease Atrial fibrillation Mechanical prosthetic heart valves (2.5-3.5) IS PATIENT ON ANTICOAGULANTS? NTHROMBOPLASTIN TIME [id number] 18:20:00* Test Item Value Reference Range Interpretation Comments THROMBOPLASTIN TIME PARTIAL (test code = PTT) 33.1 seconds 25.0-36. 5 N IS PATIENT ON ANTICOAGULANTS? NBASIC METABOLIC [id number] 18:20:00* Test Item Value Reference Range Interpretation Comments SODIUM (test code = NA) 139 mmol/L 136-145 N POTASSIUM (test code = K) 4.1 mmol/L 3.5-5.1 N CHLORIDE (test code = CL) 106.0 mmol/L 98-107 N CARBON DIOXIDE (test code = CO2) mmol/L 21-32 ANION GAP (test code = GAP) 10-20 GLUCOSE (test code = GLU) mg/dL 74-106 BLOOD UREA NITROGEN (test code = BUN) mg/dL 7-18 GLOMERULAR FILTRATION RATE (test code = GFR) mL/min >=60 CREATININE (test code = CREAT) mg/dL 0.7-1.3 BUN/CREATININE RATIO (test code = BUN/CREA) 10-20 CALCIUM (test code = CA) 9.2 mg/dL 8.5-10.1 N CPK-MB [id number] 18:20:00* Test Item Value Reference Range Interpretation Comments CREATINE KINASE (CK) (test code = CK) IUnit/L 26-208 CKMB (test code = CKMBT) ng/mL 0-6.0 RELATIVE % INDEX (test code = REL%) % 0.00-2.50 CBC W/O [id number] 18:15:00* Test Item Value Reference Range Interpretation Comments WHITE BLOOD CELL (test code = WBC) 17.9 K/mm3 4.5-12.5 H RED BLOOD CELL (test code = RBC) 3.46 mill/mm3 4.0-5.8 L HEMOGLOBIN (test code = HGB) 9.9 gram/dL 13.0-17.5 L HEMATOCRIT (test code = HCT) 32.6 % 42.0-52.0 L MEAN CELL VOLUME (test code = MCV) 94.2 fL 80-98 N MEAN CELL HGB (test code = MCH) 28.6 picogram 27.0-33.0 N MEAN CELL HGB CONCETRATION (test code = MCHC) 30.4 gram/dL 33.0-36. 0 L RED CELL DISTRIBUTION WIDTH (test code = RDW) 14.0 % 11.6-16. 2 N PLATELET COUNT (test code = PLT) 413 K/mm3 150-450 N MEAN PLATELET VOLUME (test code = MPV) 8.5 fL 6.7-11.0 N [id number] 18:50:00* Test Item Value Reference Range Interpretation Comments GLUBED (test code = GLUBED) 218 mg/dL 74-106 H Performed [facility] certified photogravure press [facility] [id number] 12:10:00* Test Item Value Reference Range Interpretation Comments GLUBED (test code = GLUBED) 212 mg/dL 74-106 H Performed by certified photogravure press operator at [facility] [id number] 08:21:00* Test Item Value Reference Range Interpretation Comments GLUBED (test code = GLUBED) 121 mg/dL 74-106 H Performed by certified photogravure press operator at [facility] CBC W/MANUAL [id number] 03:08:00* Test Item Value Reference Range Interpretation Comments WHITE BLOOD CELL (test code = WBC) 16.4 K/mm3 4.5-12.5 H RED BLOOD CELL (test code = RBC) 2.74 mill/mm3 4.0-5.8 L HEMOGLOBIN (test code = HGB) 8.0 gram/dL 13.0-17.5 L HEMATOCRIT (test code = HCT) 25.4 % 42.0-52.0 L MEAN CELL VOLUME (test code = MCV) 92.7 fL 80-98 N MEAN CELL HGB (test code = MCH) 29.2 picogram 27.0-33.0 N MEAN CELL HGB CONCETRATION (test code = MCHC) 31.5 gram/dL 33.0-36. 0 L RED CELL DISTRIBUTION WIDTH (test code = RDW) 14.4 % 11.6-16. 2 N RED CELL DISTRIBUTION WIDTH SD (test code = RDW-SD) 48.3 fL 37 .0-51.0 N PLATELET COUNT (test code = PLT) 435 K/mm3 150-450 N MEAN PLATELET VOLUME (test code = MPV) 8.8 fL 6.7-11.0 N IMMATURE GRANULOCYTE % (test code = IG%) 10.8 % 0.0-5.0 H "The appearance of immature granulocytes (myelocytes,pro-myelocytes, meta-myelocytes) in the peripheral blood ofnon- individuals can indicate a response toinfection, inflammation, or other stimulus to the bonemarrow" NUCLEATED RBC % (test code = NRBC%) 0.0 % 0-0 N NEUTROPHIL # (test code = NT#) 11.84 K/mm3 1.8-7.7 H IMMATURE GRANULOCYTE # (test code = IG#) 1.77 x10 3/uL 0-0.03 H LYMPHOCYTE # (test code = LY#) 1.72 K/mm3 1.0-5.0 N MONOCYTE # (test code = MO#) 0.68 K/mm3 0-0.8 N EOSINOPHIL # (test code = EO#) 0.28 K/mm3 0.0-0.5 N BASOPHIL # (test code = BA#) 0.13 K/mm3 0.0-0.2 N NUCLEATED RBC # (test code = NRBC#) 0.00 K/mm3 0.0-0.1 N MANUAL DIFF REQUIRED (test code = MDIFF) YES STAIN ACCEPTABILITY (test code = STN ACCEPTABLE) STAIN ACCEPTABLE TOTAL CELLS COUNTED (test code = TCC) 115 #CELLS SEGMENTED NEUTROPHILS (test code = SEG) 80.9 % 39-69 H BAND NEUTROPHIL (test code = BAND) 0 % 0-10 N LYMPHOCYTE (test code = LYMPH) 9.6 % 25-55 L REACTIVE LYMPH (test code = RELYMPH) 0 % MONOCYTE (test code = MON) 5.2 % 0-10 N EOSINOPHIL (test code = EOS) 0 % 0.0-5.0 N BASOPHIL (test code = BASO) 0 % 0-1.0 N METAMYELOCYTE (test code = META) 0 % 0-0 N MYELOCYTE (test code = MYELO) 4.3 % 0.0-0.0 H PROMYELOCYTE (test code = PROM) 0 % 0-0 N ANISOCYTOSIS (test code = ANISO) 1+ MICROCYTOSIS (test code = MICR) 1+ PLATELET ESTIMATE (test code = PLTEST) ADEQUATE PLATELET MORPHOLOGY (test code = PLTMORPH) NORMAL IMMATURE FORMS (test code = IMMAT) 0 % 0-0 N CBC W/MANUAL [id number] 02:39:00* Test Item Value Reference Range Interpretation Comments WHITE BLOOD CELL (test code = WBC) 16.4 K/mm3 4.5-12.5 H RED BLOOD CELL (test code = RBC) 2.74 mill/mm3 4.0-5.8 L HEMOGLOBIN (test code = HGB) 8.0 gram/dL 13.0-17.5 L HEMATOCRIT (test code = HCT) 25.4 % 42.0-52.0 L MEAN CELL VOLUME (test code = MCV) 92.7 fL 80-98 N MEAN CELL HGB (test code = MCH) 29.2 picogram 27.0-33.0 N MEAN CELL HGB CONCETRATION (test code = MCHC) 31.5 gram/dL 33.0-36. 0 L RED CELL DISTRIBUTION WIDTH (test code = RDW) 14.4 % 11.6-16. 2 N RED CELL DISTRIBUTION WIDTH SD (test code = RDW-SD) 48.3 fL 37 .0-51.0 N PLATELET COUNT (test code = PLT) 435 K/mm3 150-450 N MEAN PLATELET VOLUME (test code = MPV) 8.8 fL 6.7-11.0 N IMMATURE GRANULOCYTE % (test code = IG%) 10.8 % 0.0-5.0 H "The appearance of immature granulocytes (myelocytes,pro-myelocytes, meta-myelocytes) in the peripheral blood ofnon- individuals can indicate a response toinfection, inflammation, or other stimulus to the bonemarrow" NUCLEATED RBC % (test code = NRBC%) 0.0 % 0-0 N NEUTROPHIL # (test code = NT#) 11.84 K/mm3 1.8-7.7 H IMMATURE GRANULOCYTE # (test code = IG#) 1.77 x10 3/uL 0-0.03 H LYMPHOCYTE # (test code = LY#) 1.72 K/mm3 1.0-5.0 N MONOCYTE # (test code = MO#) 0.68 K/mm3 0-0.8 N EOSINOPHIL # (test code = EO#) 0.28 K/mm3 0.0-0.5 N BASOPHIL # (test code = BA#) 0.13 K/mm3 0.0-0.2 N NUCLEATED RBC # (test code = NRBC#) 0.00 K/mm3 0.0-0.1 N MANUAL DIFF REQUIRED (test code = MDIFF) YES STAIN ACCEPTABILITY (test code = STN ACCEPTABLE) TOTAL CELLS COUNTED (test code = TCC) #CELLS SEGMENTED NEUTROPHILS (test code = SEG) % 39-69 LYMPHOCYTE (test code = LYMPH) % 25-55 MONOCYTE (test code = MON) % 0-10 EOSINOPHIL (test code = EOS) % 0.0-5.0 CABOT RINGS (test code = CAB) MORPHOLOGY COMMENT (test code = MOC) PLATELET ESTIMATE (test code = PLTEST) PLATELET MORPHOLOGY (test code = PLTMORPH) CBC W/MANUAL [id number] 02:39:00* Test Item Value Reference Range Interpretation Comments WHITE BLOOD CELL (test code = WBC) 16.4 K/mm3 4.5-12.5 H RED BLOOD CELL (test code = RBC) 2.74 mill/mm3 4.0-5.8 L HEMOGLOBIN (test code = HGB) 8.0 gram/dL 13.0-17.5 L HEMATOCRIT (test code = HCT) 25.4 % 42.0-52.0 L MEAN CELL VOLUME (test code = MCV) 92.7 fL 80-98 N MEAN CELL HGB (test code = MCH) 29.2 picogram 27.0-33.0 N MEAN CELL HGB CONCETRATION (test code = MCHC) 31.5 gram/dL 33.0-36. 0 L RED CELL DISTRIBUTION WIDTH (test code = RDW) 14.4 % 11.6-16. 2 N RED CELL DISTRIBUTION WIDTH SD (test code = RDW-SD) 48.3 fL 37 .0-51.0 N PLATELET COUNT (test code = PLT) 435 K/mm3 150-450 N MEAN PLATELET VOLUME (test code = MPV) 8.8 fL 6.7-11.0 N IMMATURE GRANULOCYTE % (test code = IG%) 10.8 % 0.0-5.0 H "The appearance of immature granulocytes (myelocytes,pro-myelocytes, meta-myelocytes) in the peripheral blood ofnon- individuals can indicate a response toinfection, inflammation, or other stimulus to the bonemarrow" NUCLEATED RBC % (test code = NRBC%) 0.0 % 0-0 N NEUTROPHIL # (test code = NT#) 11.84 K/mm3 1.8-7.7 H IMMATURE GRANULOCYTE # (test code = IG#) 1.77 x10 3/uL 0-0.03 H LYMPHOCYTE # (test code = LY#) 1.72 K/mm3 1.0-5.0 N MONOCYTE # (test code = MO#) 0.68 K/mm3 0-0.8 N EOSINOPHIL # (test code = EO#) 0.28 K/mm3 0.0-0.5 N BASOPHIL # (test code = BA#) 0.13 K/mm3 0.0-0.2 N NUCLEATED RBC # (test code = NRBC#) 0.00 K/mm3 0.0-0.1 N MANUAL DIFF REQUIRED (test code = MDIFF) YES STAIN ACCEPTABILITY (test code = STN ACCEPTABLE) TOTAL CELLS COUNTED (test code = TCC) #CELLS SEGMENTED NEUTROPHILS (test code = SEG) % 39-69 LYMPHOCYTE (test code = LYMPH) % 25-55 MONOCYTE (test code = MON) % 0-10 EOSINOPHIL (test code = EOS) % 0.0-5.0 CABOT RINGS (test code = CAB) MORPHOLOGY COMMENT (test code = MOC) PLATELET ESTIMATE (test code = PLTEST) PLATELET MORPHOLOGY (test code = PLTMORPH) CBC W/MANUAL [id number] 02:39:00* Test Item Value Reference Range Interpretation Comments WHITE BLOOD CELL (test code = WBC) 16.4 K/mm3 4.5-12.5 H RED BLOOD CELL (test code = RBC) 2.74 mill/mm3 4.0-5.8 L HEMOGLOBIN (test code = HGB) 8.0 gram/dL 13.0-17.5 L HEMATOCRIT (test code = HCT) 25.4 % 42.0-52.0 L MEAN CELL VOLUME (test code = MCV) 92.7 fL 80-98 N MEAN CELL HGB (test code = MCH) 29.2 picogram 27.0-33.0 N MEAN CELL HGB CONCETRATION (test code = MCHC) 31.5 gram/dL 33.0-36. 0 L RED CELL DISTRIBUTION WIDTH (test code = RDW) 14.4 % 11.6-16. 2 N RED CELL DISTRIBUTION WIDTH SD (test code = RDW-SD) 48.3 fL 37 .0-51.0 N PLATELET COUNT (test code = PLT) 435 K/mm3 150-450 N MEAN PLATELET VOLUME (test code = MPV) 8.8 fL 6.7-11.0 N IMMATURE GRANULOCYTE % (test code = IG%) 10.8 % 0.0-5.0 H "The appearance of immature granulocytes (myelocytes,pro-myelocytes, meta-myelocytes) in the peripheral blood ofnon- individuals can indicate a response toinfection, inflammation, or other stimulus to the bonemarrow" NUCLEATED RBC % (test code = NRBC%) 0.0 % 0-0 N NEUTROPHIL # (test code = NT#) 11.84 K/mm3 1.8-7.7 H IMMATURE GRANULOCYTE # (test code = IG#) 1.77 x10 3/uL 0-0.03 H LYMPHOCYTE # (test code = LY#) 1.72 K/mm3 1.0-5.0 N MONOCYTE # (test code = MO#) 0.68 K/mm3 0-0.8 N EOSINOPHIL # (test code = EO#) 0.28 K/mm3 0.0-0.5 N BASOPHIL # (test code = BA#) 0.13 K/mm3 0.0-0.2 N NUCLEATED RBC # (test code = NRBC#) 0.00 K/mm3 0.0-0.1 N MANUAL DIFF REQUIRED (test code = MDIFF) YES STAIN ACCEPTABILITY (test code = STN ACCEPTABLE) TOTAL CELLS COUNTED (test code = TCC) #CELLS SEGMENTED NEUTROPHILS (test code = SEG) % 39-69 LYMPHOCYTE (test code = LYMPH) % 25-55 MONOCYTE (test code = MON) % 0-10 EOSINOPHIL (test code = EOS) % 0.0-5.0 MORPHOLOGY COMMENT (test code = MOC) PLATELET ESTIMATE (test code = PLTEST) PLATELET MORPHOLOGY (test code = PLTMORPH) CBC W/MANUAL [id number] 02:39:00* Test Item Value Reference Range Interpretation Comments WHITE BLOOD CELL (test code = WBC) 16.4 K/mm3 4.5-12.5 H RED BLOOD CELL (test code = RBC) 2.74 mill/mm3 4.0-5.8 L HEMOGLOBIN (test code = HGB) 8.0 gram/dL 13.0-17.5 L HEMATOCRIT (test code = HCT) 25.4 % 42.0-52.0 L MEAN CELL VOLUME (test code = MCV) 92.7 fL 80-98 N MEAN CELL HGB (test code = MCH) 29.2 picogram 27.0-33.0 N MEAN CELL HGB CONCETRATION (test code = MCHC) 31.5 gram/dL 33.0-36. 0 L RED CELL DISTRIBUTION WIDTH (test code = RDW) 14.4 % 11.6-16. 2 N RED CELL DISTRIBUTION WIDTH SD (test code = RDW-SD) 48.3 fL 37 .0-51.0 N PLATELET COUNT (test code = PLT) 435 K/mm3 150-450 N MEAN PLATELET VOLUME (test code = MPV) 8.8 fL 6.7-11.0 N IMMATURE GRANULOCYTE % (test code = IG%) 10.8 % 0.0-5.0 H "The appearance of immature granulocytes (myelocytes,pro-myelocytes, meta-myelocytes) in the peripheral blood ofnon- individuals can indicate a response toinfection, inflammation, or other stimulus to the bonemarrow" NUCLEATED RBC % (test code = NRBC%) 0.0 % 0-0 N NEUTROPHIL # (test code = NT#) 11.84 K/mm3 1.8-7.7 H IMMATURE GRANULOCYTE # (test code = IG#) 1.77 x10 3/uL 0-0.03 H LYMPHOCYTE # (test code = LY#) 1.72 K/mm3 1.0-5.0 N MONOCYTE # (test code = MO#) 0.68 K/mm3 0-0.8 N EOSINOPHIL # (test code = EO#) 0.28 K/mm3 0.0-0.5 N BASOPHIL # (test code = BA#) 0.13 K/mm3 0.0-0.2 N NUCLEATED RBC # (test code = NRBC#) 0.00 K/mm3 0.0-0.1 N MANUAL DIFF REQUIRED (test code = MDIFF) YES STAIN ACCEPTABILITY (test code = STN ACCEPTABLE) TOTAL CELLS COUNTED (test code = TCC) #CELLS SEGMENTED NEUTROPHILS (test code = SEG) % 39-69 LYMPHOCYTE (test code = LYMPH) % 25-55 MONOCYTE (test code = MON) % 0-10 MORPHOLOGY COMMENT (test code = MOC) PLATELET ESTIMATE (test code = PLTEST) PLATELET MORPHOLOGY (test code = PLTMORPH) CBC W/MANUAL [id number] 02:39:00* Test Item Value Reference Range Interpretation Comments WHITE BLOOD CELL (test code = WBC) 16.4 K/mm3 4.5-12.5 H RED BLOOD CELL (test code = RBC) 2.74 mill/mm3 4.0-5.8 L HEMOGLOBIN (test code = HGB) 8.0 gram/dL 13.0-17.5 L HEMATOCRIT (test code = HCT) 25.4 % 42.0-52.0 L MEAN CELL VOLUME (test code = MCV) 92.7 fL 80-98 N MEAN CELL HGB (test code = MCH) 29.2 picogram 27.0-33.0 N MEAN CELL HGB CONCETRATION (test code = MCHC) 31.5 gram/dL 33.0-36. 0 L RED CELL DISTRIBUTION WIDTH (test code = RDW) 14.4 % 11.6-16. 2 N RED CELL DISTRIBUTION WIDTH SD (test code = RDW-SD) 48.3 fL 37 .0-51.0 N PLATELET COUNT (test code = PLT) 435 K/mm3 150-450 N MEAN PLATELET VOLUME (test code = MPV) 8.8 fL 6.7-11.0 N IMMATURE GRANULOCYTE % (test code = IG%) 10.8 % 0.0-5.0 H "The appearance of immature granulocytes (myelocytes,pro-myelocytes, meta-myelocytes) in the peripheral blood ofnon- individuals can indicate a response toinfection, inflammation, or other stimulus to the bonemarrow" NUCLEATED RBC % (test code = NRBC%) 0.0 % 0-0 N NEUTROPHIL # (test code = NT#) 11.84 K/mm3 1.8-7.7 H IMMATURE GRANULOCYTE # (test code = IG#) 1.77 x10 3/uL 0-0.03 H LYMPHOCYTE # (test code = LY#) 1.72 K/mm3 1.0-5.0 N MONOCYTE # (test code = MO#) 0.68 K/mm3 0-0.8 N EOSINOPHIL # (test code = EO#) 0.28 K/mm3 0.0-0.5 N BASOPHIL # (test code = BA#) 0.13 K/mm3 0.0-0.2 N NUCLEATED RBC # (test code = NRBC#) 0.00 K/mm3 0.0-0.1 N MANUAL DIFF REQUIRED (test code = MDIFF) YES STAIN ACCEPTABILITY (test code = STN ACCEPTABLE) TOTAL CELLS COUNTED (test code = TCC) #CELLS SEGMENTED NEUTROPHILS (test code = SEG) % 39-69 LYMPHOCYTE (test code = LYMPH) % 25-55 MONOCYTE (test code = MON) % 0-10 EOSINOPHIL (test code = EOS) % 0.0-5.0 CABOT RINGS (test code = CAB) MORPHOLOGY COMMENT (test code = MOC) PLATELET ESTIMATE (test code = PLTEST) PLATELET MORPHOLOGY (test code = PLTMORPH) [id number] 20:20:00* Test Item Value Reference Range Interpretation Comments GLUBED (test code = GLUBED) 229 mg/dL 74-106 H Performed by certified photogravure press operator at [facility] [id number] 16:14:00* Test Item Value Reference Range Interpretation Comments GLUBED (test code = GLUBED) 265 mg/dL 74-106 H Performed by certified photogravure press operator at [facility] [id number] 11:59:00* Test Item Value Reference Range Interpretation Comments GLUBED (test code = GLUBED) 267 mg/dL 74-106 H Performed by certified photogravure press operator at [facility] [id number] 08:56:00* Test Item Value Reference Range Interpretation Comments GLUBED (test code = GLUBED) 163 mg/dL 74-106 H [facility] W/[facility]UAL [id number] 04:18:00* Test Item Value Reference Range Interpretation Comments WHITE BLOOD CELL (test code = WBC) 13.3 K/mm3 4.5-12.5 H RED BLOOD CELL (test code = RBC) 2.63 mill/mm3 4.0-5.8 L HEMOGLOBIN (test code = HGB) 7.6 gram/dL 13.0-17.5 L HEMATOCRIT (test code = HCT) 24.0 % 42.0-52.0 L MEAN CELL VOLUME (test code = MCV) 91.3 fL 80-98 N MEAN CELL HGB (test code = MCH) 28.9 picogram 27.0-33.0 N MEAN CELL HGB CONCETRATION (test code = MCHC) 31.7 gram/dL 33.0-36. 0 L RED CELL DISTRIBUTION WIDTH (test code = RDW) 14.3 % 11.6-16. 2 N RED CELL DISTRIBUTION WIDTH SD (test code = RDW-SD) 47.4 fL 37 .0-51.0 N PLATELET COUNT (test code = PLT) 394 K/mm3 150-450 N MEAN PLATELET VOLUME (test code = MPV) 8.9 fL 6.7-11.0 N IMMATURE GRANULOCYTE % (test code = IG%) 8.4 % 0.0-5.0 H "The appearance of immature granulocytes (myelocytes,pro-myelocytes, meta-myelocytes) in the peripheral blood ofnon- individuals can indicate a response toinfection, inflammation, or other stimulus to the bonemarrow" NUCLEATED RBC % (test code = NRBC%) 0.0 % 0-0 N NEUTROPHIL # (test code = NT#) 9.46 K/mm3 1.8-7.7 H IMMATURE GRANULOCYTE # (test code = IG#) 1.12 x10 3/uL 0-0.03 H LYMPHOCYTE # (test code = LY#) 1.61 K/mm3 1.0-5.0 N MONOCYTE # (test code = MO#) 0.78 K/mm3 0-0.8 N EOSINOPHIL # (test code = EO#) 0.20 K/mm3 0.0-0.5 N BASOPHIL # (test code = BA#) 0.11 K/mm3 0.0-0.2 N NUCLEATED RBC # (test code = NRBC#) 0.00 K/mm3 0.0-0.1 N MANUAL DIFF REQUIRED (test code = MDIFF) YES STAIN ACCEPTABILITY (test code = STN ACCEPTABLE) STAIN ACCEPTABLE TOTAL CELLS COUNTED (test code = TCC) 115 #CELLS SEGMENTED NEUTROPHILS (test code = SEG) 73.9 % 39-69 H BAND NEUTROPHIL (test code = BAND) 0 % 0-10 N LYMPHOCYTE (test code = LYMPH) 13.0 % 25-55 L REACTIVE LYMPH (test code = RELYMPH) 0 % MONOCYTE (test code = MON) 6.1 % 0-10 N EOSINOPHIL (test code = EOS) 1.7 % 0.0-5.0 N BASOPHIL (test code = BASO) 0.9 % 0-1.0 N METAMYELOCYTE (test code = META) 0.9 % 0-0 H MYELOCYTE (test code = MYELO) 3.5 % 0.0-0.0 H PROMYELOCYTE (test code = PROM) 0 % 0-0 N ANISOCYTOSIS (test code = ANISO) 1+ MICROCYTOSIS (test code = MICR) 1+ PLATELET ESTIMATE (test code = PLTEST) ADEQUATE PLATELET MORPHOLOGY (test code = PLTMORPH) NORMAL IMMATURE FORMS (test code = IMMAT) 0 % 0-0 N COMPREHENSIVE METABOLIC [id number] 03:24:00* Test Item Value Reference Range Interpretation Comments SODIUM (test code = NA) 140 mmol/L 136-145 N POTASSIUM (test code = K) 4.1 mmol/L 3.5-5.1 N CHLORIDE (test code = CL) 104.0 mmol/L 98-107 N CARBON DIOXIDE (test code = CO2) 28.0 mmol/L 21-32 N ANION GAP (test code = GAP) 12.1 10-20 N GLUCOSE (test code = GLU) 243 mg/dL 74-106 H BLOOD UREA NITROGEN (test code = BUN) 15 mg/dL 7-18 N GLOMERULAR FILTRATION RATE (test code = GFR) > 60 mL/min >=60 Estimated GFR by using Modified MDRD formula.Chronic kidney disease is defined as either kidney damageor GFR <60 mL/min/1.73 m2 for >3 months. CREATININE (test code = CREAT) 0.70 mg/dL 0.7-1.3 N BUN/CREATININE RATIO (test code = BUN/CREA) 22.6 10-20 H TOTAL PROTEIN (test code = PROT) 5.5 gram/dL 6.4-8.2 L ALBUMIN (test code = ALB) 1.9 g/dL 3.4-5.0 L GLOBULIN (test code = GLOB) 3.6 gram/dL 2.7-4.2 N ALBUMIN/GLOBULIN RATIO (test code = A/G) 0.5 0.75-1.50 L CALCIUM (test code = CA) 8.2 mg/dL 8.5-10.1 L BILIRUBIN TOTAL (test code = BILT) < 0.10 mg/dL 0.0-1.0 N SGOT/AST (test code = AST) 13 IUnit/L 15-37 L SGPT/ALT (test code = ALT) 25 IUnit/L 12-78 N ALKALINE PHOSPHATASE TOTAL (test code = ALKP) 91 IUnit/L 45-117 N Note change in reference range due to change in reagent. COMPREHENSIVE METABOLIC [id number] 03:17:00* Test Item Value Reference Range Interpretation Comments SODIUM (test code = NA) 140 mmol/L 136-145 N POTASSIUM (test code = K) 4.1 mmol/L 3.5-5.1 N CHLORIDE (test code = CL) 104.0 mmol/L 98-107 N CARBON DIOXIDE (test code = CO2) mmol/L 21-32 ANION GAP (test code = GAP) 10-20 GLUCOSE (test code = GLU) mg/dL 74-106 BLOOD UREA NITROGEN (test code = BUN) mg/dL 7-18 GLOMERULAR FILTRATION RATE (test code = GFR) mL/min >=60 CREATININE (test code = CREAT) mg/dL 0.7-1.3 BUN/CREATININE RATIO (test code = BUN/CREA) 10-20 TOTAL PROTEIN (test code = PROT) gram/dL 6.4-8.2 ALBUMIN (test code = ALB) g/dL 3.4-5.0 GLOBULIN (test code = GLOB) gram/dL 2.7-4.2 ALBUMIN/GLOBULIN RATIO (test code = A/G) 0.75-1.50 CALCIUM (test code = CA) mg/dL 8.5-10.1 BILIRUBIN TOTAL (test code = BILT) mg/dL 0.0-1.0 SGOT/AST (test code = AST) IUnit/L 15-37 SGPT/ALT (test code = ALT) IUnit/L 12-78 ALKALINE PHOSPHATASE TOTAL (test code = ALKP) IUnit/L 45-117 CBC W/MANUAL [id number] 02:53:00* Test Item Value Reference Range Interpretation Comments WHITE BLOOD CELL (test code = WBC) 13.3 K/mm3 4.5-12.5 H RED BLOOD CELL (test code = RBC) 2.63 mill/mm3 4.0-5.8 L HEMOGLOBIN (test code = HGB) 7.6 gram/dL 13.0-17.5 L HEMATOCRIT (test code = HCT) 24.0 % 42.0-52.0 L MEAN CELL VOLUME (test code = MCV) 91.3 fL 80-98 N MEAN CELL HGB (test code = MCH) 28.9 picogram 27.0-33.0 N MEAN CELL HGB CONCETRATION (test code = MCHC) 31.7 gram/dL 33.0-36. 0 L RED CELL DISTRIBUTION WIDTH (test code = RDW) 14.3 % 11.6-16. 2 N RED CELL DISTRIBUTION WIDTH SD (test code = RDW-SD) 47.4 fL 37 .0-51.0 N PLATELET COUNT (test code = PLT) 394 K/mm3 150-450 N MEAN PLATELET VOLUME (test code = MPV) 8.9 fL 6.7-11.0 N IMMATURE GRANULOCYTE % (test code = IG%) 8.4 % 0.0-5.0 H "The appearance of immature granulocytes (myelocytes,pro-myelocytes, meta-myelocytes) in the peripheral blood ofnon- individuals can indicate a response toinfection, inflammation, or other stimulus to the bonemarrow" NUCLEATED RBC % (test code = NRBC%) 0.0 % 0-0 N NEUTROPHIL # (test code = NT#) 9.46 K/mm3 1.8-7.7 H IMMATURE GRANULOCYTE # (test code = IG#) 1.12 x10 3/uL 0-0.03 H LYMPHOCYTE # (test code = LY#) 1.61 K/mm3 1.0-5.0 N MONOCYTE # (test code = MO#) 0.78 K/mm3 0-0.8 N EOSINOPHIL # (test code = EO#) 0.20 K/mm3 0.0-0.5 N BASOPHIL # (test code = BA#) 0.11 K/mm3 0.0-0.2 N NUCLEATED RBC # (test code = NRBC#) 0.00 K/mm3 0.0-0.1 N MANUAL DIFF REQUIRED (test code = MDIFF) YES STAIN ACCEPTABILITY (test code = STN ACCEPTABLE) TOTAL CELLS COUNTED (test code = TCC) #CELLS SEGMENTED NEUTROPHILS (test code = SEG) % 39-69 LYMPHOCYTE (test code = LYMPH) % 25-55 MONOCYTE (test code = MON) % 0-10 EOSINOPHIL (test code = EOS) % 0.0-5.0 CABOT RINGS (test code = CAB) MORPHOLOGY COMMENT (test code = MOC) PLATELET ESTIMATE (test code = PLTEST) PLATELET MORPHOLOGY (test code = PLTMORPH) CBC W/MANUAL [id number] 02:53:00* Test Item Value Reference Range Interpretation Comments WHITE BLOOD CELL (test code = WBC) 13.3 K/mm3 4.5-12.5 H RED BLOOD CELL (test code = RBC) 2.63 mill/mm3 4.0-5.8 L HEMOGLOBIN (test code = HGB) 7.6 gram/dL 13.0-17.5 L HEMATOCRIT (test code = HCT) 24.0 % 42.0-52.0 L MEAN CELL VOLUME (test code = MCV) 91.3 fL 80-98 N MEAN CELL HGB (test code = MCH) 28.9 picogram 27.0-33.0 N MEAN CELL HGB CONCETRATION (test code = MCHC) 31.7 gram/dL 33.0-36. 0 L RED CELL DISTRIBUTION WIDTH (test code = RDW) 14.3 % 11.6-16. 2 N RED CELL DISTRIBUTION WIDTH SD (test code = RDW-SD) 47.4 fL 37 .0-51.0 N PLATELET COUNT (test code = PLT) 394 K/mm3 150-450 N MEAN PLATELET VOLUME (test code = MPV) 8.9 fL 6.7-11.0 N IMMATURE GRANULOCYTE % (test code = IG%) 8.4 % 0.0-5.0 H "The appearance of immature granulocytes (myelocytes,pro-myelocytes, meta-myelocytes) in the peripheral blood ofnon- individuals can indicate a response toinfection, inflammation, or other stimulus to the bonemarrow" NUCLEATED RBC % (test code = NRBC%) 0.0 % 0-0 N NEUTROPHIL # (test code = NT#) 9.46 K/mm3 1.8-7.7 H IMMATURE GRANULOCYTE # (test code = IG#) 1.12 x10 3/uL 0-0.03 H LYMPHOCYTE # (test code = LY#) 1.61 K/mm3 1.0-5.0 N MONOCYTE # (test code = MO#) 0.78 K/mm3 0-0.8 N EOSINOPHIL # (test code = EO#) 0.20 K/mm3 0.0-0.5 N BASOPHIL # (test code = BA#) 0.11 K/mm3 0.0-0.2 N NUCLEATED RBC # (test code = NRBC#) 0.00 K/mm3 0.0-0.1 N MANUAL DIFF REQUIRED (test code = MDIFF) YES STAIN ACCEPTABILITY (test code = STN ACCEPTABLE) TOTAL CELLS COUNTED (test code = TCC) #CELLS SEGMENTED NEUTROPHILS (test code = SEG) % 39-69 LYMPHOCYTE (test code = LYMPH) % 25-55 MONOCYTE (test code = MON) % 0-10 EOSINOPHIL (test code = EOS) % 0.0-5.0 MORPHOLOGY COMMENT (test code = MOC) PLATELET ESTIMATE (test code = PLTEST) PLATELET MORPHOLOGY (test code = PLTMORPH) CBC W/MANUAL [id number] 02:53:00* Test Item Value Reference Range Interpretation Comments WHITE BLOOD CELL (test code = WBC) 13.3 K/mm3 4.5-12.5 H RED BLOOD CELL (test code = RBC) 2.63 mill/mm3 4.0-5.8 L HEMOGLOBIN (test code = HGB) 7.6 gram/dL 13.0-17.5 L HEMATOCRIT (test code = HCT) 24.0 % 42.0-52.0 L MEAN CELL VOLUME (test code = MCV) 91.3 fL 80-98 N MEAN CELL HGB (test code = MCH) 28.9 picogram 27.0-33.0 N MEAN CELL HGB CONCETRATION (test code = MCHC) 31.7 gram/dL 33.0-36. 0 L RED CELL DISTRIBUTION WIDTH (test code = RDW) 14.3 % 11.6-16. 2 N RED CELL DISTRIBUTION WIDTH SD (test code = RDW-SD) 47.4 fL 37 .0-51.0 N PLATELET COUNT (test code = PLT) 394 K/mm3 150-450 N MEAN PLATELET VOLUME (test code = MPV) 8.9 fL 6.7-11.0 N IMMATURE GRANULOCYTE % (test code = IG%) 8.4 % 0.0-5.0 H "The appearance of immature granulocytes (myelocytes,pro-myelocytes, meta-myelocytes) in the peripheral blood ofnon- individuals can indicate a response toinfection, inflammation, or other stimulus to the bonemarrow" NUCLEATED RBC % (test code = NRBC%) 0.0 % 0-0 N NEUTROPHIL # (test code = NT#) 9.46 K/mm3 1.8-7.7 H IMMATURE GRANULOCYTE # (test code = IG#) 1.12 x10 3/uL 0-0.03 H LYMPHOCYTE # (test code = LY#) 1.61 K/mm3 1.0-5.0 N MONOCYTE # (test code = MO#) 0.78 K/mm3 0-0.8 N EOSINOPHIL # (test code = EO#) 0.20 K/mm3 0.0-0.5 N BASOPHIL # (test code = BA#) 0.11 K/mm3 0.0-0.2 N NUCLEATED RBC # (test code = NRBC#) 0.00 K/mm3 0.0-0.1 N MANUAL DIFF REQUIRED (test code = MDIFF) YES STAIN ACCEPTABILITY (test code = STN ACCEPTABLE) TOTAL CELLS COUNTED (test code = TCC) #CELLS SEGMENTED NEUTROPHILS (test code = SEG) % 39-69 LYMPHOCYTE (test code = LYMPH) % 25-55 MONOCYTE (test code = MON) % 0-10 MORPHOLOGY COMMENT (test code = MOC) PLATELET ESTIMATE (test code = PLTEST) PLATELET MORPHOLOGY (test code = PLTMORPH) CBC W/MANUAL [id number] 02:52:00* Test Item Value Reference Range Interpretation Comments WHITE BLOOD CELL (test code = WBC) 13.3 K/mm3 4.5-12.5 H RED BLOOD CELL (test code = RBC) 2.63 mill/mm3 4.0-5.8 L HEMOGLOBIN (test code = HGB) 7.6 gram/dL 13.0-17.5 L HEMATOCRIT (test code = HCT) 24.0 % 42.0-52.0 L MEAN CELL VOLUME (test code = MCV) 91.3 fL 80-98 N MEAN CELL HGB (test code = MCH) 28.9 picogram 27.0-33.0 N MEAN CELL HGB CONCETRATION (test code = MCHC) 31.7 gram/dL 33.0-36. 0 L RED CELL DISTRIBUTION WIDTH (test code = RDW) 14.3 % 11.6-16. 2 N RED CELL DISTRIBUTION WIDTH SD (test code = RDW-SD) 47.4 fL 37 .0-51.0 N PLATELET COUNT (test code = PLT) 394 K/mm3 150-450 N MEAN PLATELET VOLUME (test code = MPV) 8.9 fL 6.7-11.0 N IMMATURE GRANULOCYTE % (test code = IG%) 8.4 % 0.0-5.0 H "The appearance of immature granulocytes (myelocytes,pro-myelocytes, meta-myelocytes) in the peripheral blood ofnon- individuals can indicate a response toinfection, inflammation, or other stimulus to the bonemarrow" NUCLEATED RBC % (test code = NRBC%) 0.0 % 0-0 N NEUTROPHIL # (test code = NT#) 9.46 K/mm3 1.8-7.7 H IMMATURE GRANULOCYTE # (test code = IG#) 1.12 x10 3/uL 0-0.03 H LYMPHOCYTE # (test code = LY#) 1.61 K/mm3 1.0-5.0 N MONOCYTE # (test code = MO#) 0.78 K/mm3 0-0.8 N EOSINOPHIL # (test code = EO#) 0.20 K/mm3 0.0-0.5 N BASOPHIL # (test code = BA#) 0.11 K/mm3 0.0-0.2 N NUCLEATED RBC # (test code = NRBC#) 0.00 K/mm3 0.0-0.1 N MANUAL DIFF REQUIRED (test code = MDIFF) YES STAIN ACCEPTABILITY (test code = STN ACCEPTABLE) TOTAL CELLS COUNTED (test code = TCC) #CELLS SEGMENTED NEUTROPHILS (test code = SEG) % 39-69 LYMPHOCYTE (test code = LYMPH) % 25-55 MONOCYTE (test code = MON) % 0-10 EOSINOPHIL (test code = EOS) % 0.0-5.0 CABOT RINGS (test code = CAB) MORPHOLOGY COMMENT (test code = MOC) PLATELET ESTIMATE (test code = PLTEST) PLATELET MORPHOLOGY (test code = PLTMORPH) CBC W/MANUAL [id number] 02:52:00* Test Item Value Reference Range Interpretation Comments WHITE BLOOD CELL (test code = WBC) 13.3 K/mm3 4.5-12.5 H RED BLOOD CELL (test code = RBC) 2.63 mill/mm3 4.0-5.8 L HEMOGLOBIN (test code = HGB) 7.6 gram/dL 13.0-17.5 L HEMATOCRIT (test code = HCT) 24.0 % 42.0-52.0 L MEAN CELL VOLUME (test code = MCV) 91.3 fL 80-98 N MEAN CELL HGB (test code = MCH) 28.9 picogram 27.0-33.0 N MEAN CELL HGB CONCETRATION (test code = MCHC) 31.7 gram/dL 33.0-36. 0 L RED CELL DISTRIBUTION WIDTH (test code = RDW) 14.3 % 11.6-16. 2 N RED CELL DISTRIBUTION WIDTH SD (test code = RDW-SD) 47.4 fL 37 .0-51.0 N PLATELET COUNT (test code = PLT) 394 K/mm3 150-450 N MEAN PLATELET VOLUME (test code = MPV) 8.9 fL 6.7-11.0 N IMMATURE GRANULOCYTE % (test code = IG%) 8.4 % 0.0-5.0 H "The appearance of immature granulocytes (myelocytes,pro-myelocytes, meta-myelocytes) in the peripheral blood ofnon- individuals can indicate a response toinfection, inflammation, or other stimulus to the bonemarrow" NUCLEATED RBC % (test code = NRBC%) 0.0 % 0-0 N NEUTROPHIL # (test code = NT#) 9.46 K/mm3 1.8-7.7 H IMMATURE GRANULOCYTE # (test code = IG#) 1.12 x10 3/uL 0-0.03 H LYMPHOCYTE # (test code = LY#) 1.61 K/mm3 1.0-5.0 N MONOCYTE # (test code = MO#) 0.78 K/mm3 0-0.8 N EOSINOPHIL # (test code = EO#) 0.20 K/mm3 0.0-0.5 N BASOPHIL # (test code = BA#) 0.11 K/mm3 0.0-0.2 N NUCLEATED RBC # (test code = NRBC#) 0.00 K/mm3 0.0-0.1 N MANUAL DIFF REQUIRED (test code = MDIFF) YES STAIN ACCEPTABILITY (test code = STN ACCEPTABLE) TOTAL CELLS COUNTED (test code = TCC) #CELLS SEGMENTED NEUTROPHILS (test code = SEG) % 39-69 LYMPHOCYTE (test code = LYMPH) % 25-55 MONOCYTE (test code = MON) % 0-10 EOSINOPHIL (test code = EOS) % 0.0-5.0 CABOT RINGS (test code = CAB) MORPHOLOGY COMMENT (test code = MOC) PLATELET ESTIMATE (test code = PLTEST) PLATELET MORPHOLOGY (test code = PLTMORPH) [id number] 19:49:00* Test Item Value Reference Range Interpretation Comments GLUBED (test code = GLUBED) 249 mg/dL 74-106 H Performed by certified photogravure press operator at [facility] [id number] 18:55:00* Test Item Value Reference Range Interpretation Comments GLUBED (test code = GLUBED) 295 mg/dL 74-106 H Performed by certified photogravure press [facility] [id number] 12:08:00* Test Item Value Reference Range Interpretation Comments GLUBED (test code = GLUBED) 235 mg/dL 74-106 H Performed [facility] certified photogravure press [facility] [id number] 08:13:00* Test Item Value Reference Range Interpretation Comments GLUBED (test code = GLUBED) 120 mg/dL 74-106 H Performed by certified photogravure press [facility] [id number] 20:25:00* Test Item Value Reference Range Interpretation Comments GLUBED (test code = GLUBED) 221 mg/dL 74-106 H Performed by certified photogravure press [facility] [id number] 14:25:00* Test Item Value Reference Range Interpretation Comments GLUBED (test code = GLUBED) 214 mg/dL 74-106 H Performed by certified photogravure press [facility] [id number] 14:25:00* Test Item Value Reference Range Interpretation Comments GLUBED (test code = GLUBED) 86 mg/dL 74-106 N Performed by certified photogravure press [facility] CBC W/MANUAL [id number] 06:10:00* Test Item Value Reference Range Interpretation Comments WHITE BLOOD CELL (test code = WBC) 13.4 K/mm3 4.5-12.5 H RED BLOOD CELL (test code = RBC) 2.76 mill/mm3 4.0-5.8 L HEMOGLOBIN (test code = HGB) 8.0 gram/dL 13.0-17.5 L HEMATOCRIT (test code = HCT) 25.1 % 42.0-52.0 L MEAN CELL VOLUME (test code = MCV) 90.9 fL 80-98 N MEAN CELL HGB (test code = MCH) 29.0 picogram 27.0-33.0 N MEAN CELL HGB CONCETRATION (test code = MCHC) 31.9 gram/dL 33.0-36. 0 L RED CELL DISTRIBUTION WIDTH (test code = RDW) 14.2 % 11.6-16. 2 N RED CELL DISTRIBUTION WIDTH SD (test code = RDW-SD) 46.5 fL 37 .0-51.0 N PLATELET COUNT (test code = PLT) 400 K/mm3 150-450 N MEAN PLATELET VOLUME (test code = MPV) 8.6 fL 6.7-11.0 N IMMATURE GRANULOCYTE % (test code = IG%) 6.0 % 0.0-5.0 H "The appearance of immature granulocytes (myelocytes,pro-myelocytes, meta-myelocytes) in the peripheral blood ofnon- individuals can indicate a response toinfection, inflammation, or other stimulus to the bonemarrow" NUCLEATED RBC % (test code = NRBC%) 0.0 % 0-0 N NEUTROPHIL # (test code = NT#) 10.12 K/mm3 1.8-7.7 H IMMATURE GRANULOCYTE # (test code = IG#) 0.80 x10 3/uL 0-0.03 H LYMPHOCYTE # (test code = LY#) 1.42 K/mm3 1.0-5.0 N MONOCYTE # (test code = MO#) 0.69 K/mm3 0-0.8 N EOSINOPHIL # (test code = EO#) 0.23 K/mm3 0.0-0.5 N BASOPHIL # (test code = BA#) 0.13 K/mm3 0.0-0.2 N NUCLEATED RBC # (test code = NRBC#) 0.00 K/mm3 0.0-0.1 N MANUAL DIFF REQUIRED (test code = MDIFF) YES STAIN ACCEPTABILITY (test code = STN ACCEPTABLE) STAIN ACCEPTABLE TOTAL CELLS COUNTED (test code = TCC) 116 #CELLS SEGMENTED NEUTROPHILS (test code = SEG) 84.1 % 39-69 H BAND NEUTROPHIL (test code = BAND) 0 % 0-10 N LYMPHOCYTE (test code = LYMPH) 9.7 % 25-55 L REACTIVE LYMPH (test code = RELYMPH) 0 % MONOCYTE (test code = MON) 3.5 % 0-10 N EOSINOPHIL (test code = EOS) 0.9 % 0.0-5.0 N BASOPHIL (test code = BASO) 0 % 0-1.0 N METAMYELOCYTE (test code = META) 0 % 0-0 N MYELOCYTE (test code = MYELO) 1.8 % 0.0-0.0 H PROMYELOCYTE (test code = PROM) 0 % 0-0 N POIKILOCYTOSIS (test code = POIK) 3+ ANISOCYTOSIS (test code = ANISO) 1+ CRENATED CELLS (test code = CREN) 1+ PLATELET ESTIMATE (test code = PLTEST) ADEQUATE PLATELET MORPHOLOGY (test code = PLTMORPH) NORMAL IMMATURE FORMS (test code = IMMAT) 0 % 0-0 N BASIC METABOLIC [id number] 05:33:00* Test Item Value Reference Range Interpretation Comments SODIUM (test code = NA) 140 mmol/L 136-145 N POTASSIUM (test code = K) 3.9 mmol/L 3.5-5.1 N CHLORIDE (test code = CL) 104.0 mmol/L 98-107 N CARBON DIOXIDE (test code = CO2) 29.0 mmol/L 21-32 N ANION GAP (test code = GAP) 10.9 10-20 N GLUCOSE (test code = GLU) 114 mg/dL 74-106 H BLOOD UREA NITROGEN (test code = BUN) 12 mg/dL 7-18 N GLOMERULAR FILTRATION RATE (test code = GFR) > 60 mL/min >=60 Estimated GFR by using Modified MDRD formula.Chronic kidney disease is defined as either kidney damageor GFR <60 mL/min/1.73 m2 for >3 months. CREATININE (test code = CREAT) 0.60 mg/dL 0.7-1.3 L BUN/CREATININE RATIO (test code = BUN/CREA) 21.1 10-20 H CALCIUM (test code = CA) 8.3 mg/dL 8.5-10.1 L BASIC METABOLIC [id number] 05:28:00* Test Item Value Reference Range Interpretation Comments SODIUM (test code = NA) 140 mmol/L 136-145 N POTASSIUM (test code = K) 3.9 mmol/L 3.5-5.1 N CHLORIDE (test code = CL) 104.0 mmol/L 98-107 N CARBON DIOXIDE (test code = CO2) mmol/L 21-32 ANION GAP (test code = GAP) 10-20 GLUCOSE (test code = GLU) mg/dL 74-106 BLOOD UREA NITROGEN (test code = BUN) mg/dL 7-18 GLOMERULAR FILTRATION RATE (test code = GFR) mL/min >=60 CREATININE (test code = CREAT) mg/dL 0.7-1.3 BUN/CREATININE RATIO (test code = BUN/CREA) 10-20 CALCIUM (test code = CA) mg/dL 8.5-10.1 CBC W/MANUAL [id number] 05:28:00* Test Item Value Reference Range Interpretation Comments WHITE BLOOD CELL (test code = WBC) 13.4 K/mm3 4.5-12.5 H RED BLOOD CELL (test code = RBC) 2.76 mill/mm3 4.0-5.8 L HEMOGLOBIN (test code = HGB) 8.0 gram/dL 13.0-17.5 L HEMATOCRIT (test code = HCT) 25.1 % 42.0-52.0 L MEAN CELL VOLUME (test code = MCV) 90.9 fL 80-98 N MEAN CELL HGB (test code = MCH) 29.0 picogram 27.0-33.0 N MEAN CELL HGB CONCETRATION (test code = MCHC) 31.9 gram/dL 33.0-36. 0 L RED CELL DISTRIBUTION WIDTH (test code = RDW) 14.2 % 11.6-16. 2 N RED CELL DISTRIBUTION WIDTH SD (test code = RDW-SD) 46.5 fL 37 .0-51.0 N PLATELET COUNT (test code = PLT) 400 K/mm3 150-450 N MEAN PLATELET VOLUME (test code = MPV) 8.6 fL 6.7-11.0 N IMMATURE GRANULOCYTE % (test code = IG%) 6.0 % 0.0-5.0 H "The appearance of immature granulocytes (myelocytes,pro-myelocytes, meta-myelocytes) in the peripheral blood ofnon- individuals can indicate a response toinfection, inflammation, or other stimulus to the bonemarrow" NUCLEATED RBC % (test code = NRBC%) 0.0 % 0-0 N NEUTROPHIL # (test code = NT#) 10.12 K/mm3 1.8-7.7 H IMMATURE GRANULOCYTE # (test code = IG#) 0.80 x10 3/uL 0-0.03 H LYMPHOCYTE # (test code = LY#) 1.42 K/mm3 1.0-5.0 N MONOCYTE # (test code = MO#) 0.69 K/mm3 0-0.8 N EOSINOPHIL # (test code = EO#) 0.23 K/mm3 0.0-0.5 N BASOPHIL # (test code = BA#) 0.13 K/mm3 0.0-0.2 N NUCLEATED RBC # (test code = NRBC#) 0.00 K/mm3 0.0-0.1 N MANUAL DIFF REQUIRED (test code = MDIFF) YES STAIN ACCEPTABILITY (test code = STN ACCEPTABLE) TOTAL CELLS COUNTED (test code = TCC) #CELLS SEGMENTED NEUTROPHILS (test code = SEG) % 39-69 LYMPHOCYTE (test code = LYMPH) % 25-55 MONOCYTE (test code = MON) % 0-10 MORPHOLOGY COMMENT (test code = MOC) PLATELET ESTIMATE (test code = PLTEST) PLATELET MORPHOLOGY (test code = PLTMORPH) CBC W/MANUAL [id number] 05:17:00* Test Item Value Reference Range Interpretation Comments WHITE BLOOD CELL (test code = WBC) 13.4 K/mm3 4.5-12.5 H RED BLOOD CELL (test code = RBC) 2.76 mill/mm3 4.0-5.8 L HEMOGLOBIN (test code = HGB) 8.0 gram/dL 13.0-17.5 L HEMATOCRIT (test code = HCT) 25.1 % 42.0-52.0 L MEAN CELL VOLUME (test code = MCV) 90.9 fL 80-98 N MEAN CELL HGB (test code = MCH) 29.0 picogram 27.0-33.0 N MEAN CELL HGB CONCETRATION (test code = MCHC) 31.9 gram/dL 33.0-36. 0 L RED CELL DISTRIBUTION WIDTH (test code = RDW) 14.2 % 11.6-16. 2 N RED CELL DISTRIBUTION WIDTH SD (test code = RDW-SD) 46.5 fL 37 .0-51.0 N PLATELET COUNT (test code = PLT) 400 K/mm3 150-450 N MEAN PLATELET VOLUME (test code = MPV) 8.6 fL 6.7-11.0 N IMMATURE GRANULOCYTE % (test code = IG%) 6.0 % 0.0-5.0 H "The appearance of immature granulocytes (myelocytes,pro-myelocytes, meta-myelocytes) in the peripheral blood ofnon- individuals can indicate a response toinfection, inflammation, or other stimulus to the bonemarrow" NUCLEATED RBC % (test code = NRBC%) 0.0 % 0-0 N NEUTROPHIL # (test code = NT#) 10.12 K/mm3 1.8-7.7 H IMMATURE GRANULOCYTE # (test code = IG#) 0.80 x10 3/uL 0-0.03 H LYMPHOCYTE # (test code = LY#) 1.42 K/mm3 1.0-5.0 N MONOCYTE # (test code = MO#) 0.69 K/mm3 0-0.8 N EOSINOPHIL # (test code = EO#) 0.23 K/mm3 0.0-0.5 N BASOPHIL # (test code = BA#) 0.13 K/mm3 0.0-0.2 N NUCLEATED RBC # (test code = NRBC#) 0.00 K/mm3 0.0-0.1 N MANUAL DIFF REQUIRED (test code = MDIFF) YES STAIN ACCEPTABILITY (test code = STN ACCEPTABLE) TOTAL CELLS COUNTED (test code = TCC) #CELLS SEGMENTED NEUTROPHILS (test code = SEG) % 39-69 LYMPHOCYTE (test code = LYMPH) % 25-55 MONOCYTE (test code = MON) % 0-10 EOSINOPHIL (test code = EOS) % 0.0-5.0 CABOT RINGS (test code = CAB) MORPHOLOGY COMMENT (test code = MOC) PLATELET ESTIMATE (test code = PLTEST) PLATELET MORPHOLOGY (test code = PLTMORPH) CBC W/MANUAL [id number] 05:17:00* Test Item Value Reference Range Interpretation Comments WHITE BLOOD CELL (test code = WBC) 13.4 K/mm3 4.5-12.5 H RED BLOOD CELL (test code = RBC) 2.76 mill/mm3 4.0-5.8 L HEMOGLOBIN (test code = HGB) 8.0 gram/dL 13.0-17.5 L HEMATOCRIT (test code = HCT) 25.1 % 42.0-52.0 L MEAN CELL VOLUME (test code = MCV) 90.9 fL 80-98 N MEAN CELL HGB (test code = MCH) 29.0 picogram 27.0-33.0 N MEAN CELL HGB CONCETRATION (test code = MCHC) 31.9 gram/dL 33.0-36. 0 L RED CELL DISTRIBUTION WIDTH (test code = RDW) 14.2 % 11.6-16. 2 N RED CELL DISTRIBUTION WIDTH SD (test code = RDW-SD) 46.5 fL 37 .0-51.0 N PLATELET COUNT (test code = PLT) 400 K/mm3 150-450 N MEAN PLATELET VOLUME (test code = MPV) 8.6 fL 6.7-11.0 N IMMATURE GRANULOCYTE % (test code = IG%) 6.0 % 0.0-5.0 H "The appearance of immature granulocytes (myelocytes,pro-myelocytes, meta-myelocytes) in the peripheral blood ofnon- individuals can indicate a response toinfection, inflammation, or other stimulus to the bonemarrow" NUCLEATED RBC % (test code = NRBC%) 0.0 % 0-0 N NEUTROPHIL # (test code = NT#) 10.12 K/mm3 1.8-7.7 H IMMATURE GRANULOCYTE # (test code = IG#) 0.80 x10 3/uL 0-0.03 H LYMPHOCYTE # (test code = LY#) 1.42 K/mm3 1.0-5.0 N MONOCYTE # (test code = MO#) 0.69 K/mm3 0-0.8 N EOSINOPHIL # (test code = EO#) 0.23 K/mm3 0.0-0.5 N BASOPHIL # (test code = BA#) 0.13 K/mm3 0.0-0.2 N NUCLEATED RBC # (test code = NRBC#) 0.00 K/mm3 0.0-0.1 N MANUAL DIFF REQUIRED (test code = MDIFF) YES STAIN ACCEPTABILITY (test code = STN ACCEPTABLE) TOTAL CELLS COUNTED (test code = TCC) #CELLS SEGMENTED NEUTROPHILS (test code = SEG) % 39-69 LYMPHOCYTE (test code = LYMPH) % 25-55 MONOCYTE (test code = MON) % 0-10 EOSINOPHIL (test code = EOS) % 0.0-5.0 MORPHOLOGY COMMENT (test code = MOC) PLATELET ESTIMATE (test code = PLTEST) PLATELET MORPHOLOGY (test code = PLTMORPH) CBC W/MANUAL [id number] 05:16:00* Test Item Value Reference Range Interpretation Comments WHITE BLOOD CELL (test code = WBC) 13.4 K/mm3 4.5-12.5 H RED BLOOD CELL (test code = RBC) 2.76 mill/mm3 4.0-5.8 L HEMOGLOBIN (test code = HGB) 8.0 gram/dL 13.0-17.5 L HEMATOCRIT (test code = HCT) 25.1 % 42.0-52.0 L MEAN CELL VOLUME (test code = MCV) 90.9 fL 80-98 N MEAN CELL HGB (test code = MCH) 29.0 picogram 27.0-33.0 N MEAN CELL HGB CONCETRATION (test code = MCHC) 31.9 gram/dL 33.0-36. 0 L RED CELL DISTRIBUTION WIDTH (test code = RDW) 14.2 % 11.6-16. 2 N RED CELL DISTRIBUTION WIDTH SD (test code = RDW-SD) 46.5 fL 37 .0-51.0 N PLATELET COUNT (test code = PLT) 400 K/mm3 150-450 N MEAN PLATELET VOLUME (test code = MPV) 8.6 fL 6.7-11.0 N IMMATURE GRANULOCYTE % (test code = IG%) 6.0 % 0.0-5.0 H "The appearance of immature granulocytes (myelocytes,pro-myelocytes, meta-myelocytes) in the peripheral blood ofnon- individuals can indicate a response toinfection, inflammation, or other stimulus to the bonemarrow" NUCLEATED RBC % (test code = NRBC%) 0.0 % 0-0 N NEUTROPHIL # (test code = NT#) 10.12 K/mm3 1.8-7.7 H IMMATURE GRANULOCYTE # (test code = IG#) 0.80 x10 3/uL 0-0.03 H LYMPHOCYTE # (test code = LY#) 1.42 K/mm3 1.0-5.0 N MONOCYTE # (test code = MO#) 0.69 K/mm3 0-0.8 N EOSINOPHIL # (test code = EO#) 0.23 K/mm3 0.0-0.5 N BASOPHIL # (test code = BA#) 0.13 K/mm3 0.0-0.2 N NUCLEATED RBC # (test code = NRBC#) 0.00 K/mm3 0.0-0.1 N MANUAL DIFF REQUIRED (test code = MDIFF) YES STAIN ACCEPTABILITY (test code = STN ACCEPTABLE) TOTAL CELLS COUNTED (test code = TCC) #CELLS SEGMENTED NEUTROPHILS (test code = SEG) % 39-69 LYMPHOCYTE (test code = LYMPH) % 25-55 MONOCYTE (test code = MON) % 0-10 EOSINOPHIL (test code = EOS) % 0.0-5.0 CAB[place]INGS (test code = CAB) MORPHOLOGY COMMENT (test code = MOC) PLATELET ESTIMATE (test code = PLTEST) PLATELET MORPHOLOGY (test code = PLTMORPH) CBC W/MANUAL [id number] 05:16:00* Test Item Value Reference Range Interpretation Comments WHITE BLOOD CELL (test code = WBC) 13.4 K/mm3 4.5-12.5 H RED BLOOD CELL (test code = RBC) 2.76 mill/mm3 4.0-5.8 L HEMOGLOBIN (test code = HGB) 8.0 gram/dL 13.0-17.5 L HEMATOCRIT (test code = HCT) 25.1 % 42.0-52.0 L MEAN CELL VOLUME (test code = MCV) 90.9 fL 80-98 N MEAN CELL HGB (test code = MCH) 29.0 picogram 27.0-33.0 N MEAN CELL HGB CONCETRATION (test code = MCHC) 31.9 gram/dL 33.0-36. 0 L RED CELL DISTRIBUTION WIDTH (test code = RDW) 14.2 % 11.6-16. 2 N RED CELL DISTRIBUTION WIDTH SD (test code = RDW-SD) 46.5 fL 37 .0-51.0 N PLATELET COUNT (test code = PLT) 400 K/mm3 150-450 N MEAN PLATELET VOLUME (test code = MPV) 8.6 fL 6.7-11.0 N IMMATURE GRANULOCYTE % (test code = IG%) 6.0 % 0.0-5.0 H "The appearance of immature granulocytes (myelocytes,pro-myelocytes, meta-myelocytes) in the peripheral blood ofnon- individuals can indicate a response toinfection, inflammation, or other stimulus to the bonemarrow" NUCLEATED RBC % (test code = NRBC%) 0.0 % 0-0 N NEUTROPHIL # (test code = NT#) 10.12 K/mm3 1.8-7.7 H IMMATURE GRANULOCYTE # (test code = IG#) 0.80 x10 3/uL 0-0.03 H LYMPHOCYTE # (test code = LY#) 1.42 K/mm3 1.0-5.0 N MONOCYTE # (test code = MO#) 0.69 K/mm3 0-0.8 N EOSINOPHIL # (test code = EO#) 0.23 K/mm3 0.0-0.5 N BASOPHIL # (test code = BA#) 0.13 K/mm3 0.0-0.2 N NUCLEATED RBC # (test code = NRBC#) 0.00 K/mm3 0.0-0.1 N MANUAL DIFF REQUIRED (test code = MDIFF) YES STAIN ACCEPTABILITY (test code = STN ACCEPTABLE) TOTAL CELLS COUNTED (test code = TCC) #CELLS SEGMENTED NEUTROPHILS (test code = SEG) % 39-69 LYMPHOCYTE (test code = LYMPH) % 25-55 MONOCYTE (test code = MON) % 0-10 EOSINOPHIL (test code = EOS) % 0.0-5.0 CABOT RINGS (test code = CAB) MORPHOLOGY COMMENT (test code = MOC) PLATELET ESTIMATE (test code = PLTEST) PLATELET MORPHOLOGY (test code = PLTMORPH) [id number] 20:44:00* Test Item Value Reference Range Interpretation Comments GLUBED (test code = GLUBED) 156 mg/dL 74-106 H Performed by certified photogravure press operator at [facility] [id number] 17:23:00* Test Item Value Reference Range Interpretation Comments GLUBED (test code = GLUBED) 173 mg/dL 74-106 H Performed by certified photogravure press operator at [facility] [id number] 12:16:00* Test Item Value Reference Range Interpretation Comments GLUBED (test code = GLUBED) 146 mg/dL 74-106 H Performed by certified photogravure press operator at [facility] [id number] 08:35:00* Test Item Value Reference Range Interpretation Comments GLUBED (test code = GLUBED) 103 mg/dL 74-106 N Performed by certified photogravure press operator at [facility] CBC W/MANUAL [id number] 06:55:00* Test Item Value Reference Range Interpretation Comments WHITE BLOOD CELL (test code = WBC) 14.2 K/mm3 4.5-12.5 H RED BLOOD CELL (test code = RBC) 2.59 mill/mm3 4.0-5.8 L HEMOGLOBIN (test code = HGB) 7.4 gram/dL 13.0-17.5 L HEMATOCRIT (test code = HCT) 23.6 % 42.0-52.0 L MEAN CELL VOLUME (test code = MCV) 91.1 fL 80-98 N MEAN CELL HGB (test code = MCH) 28.6 picogram 27.0-33.0 N MEAN CELL HGB CONCETRATION (test code = MCHC) 31.4 gram/dL 33.0-36. 0 L RED CELL DISTRIBUTION WIDTH (test code = RDW) 14.2 % 11.6-16. 2 N RED CELL DISTRIBUTION WIDTH SD (test code = RDW-SD) 47.4 fL 37 .0-51.0 N PLATELET COUNT (test code = PLT) 358 K/mm3 150-450 N MEAN PLATELET VOLUME (test code = MPV) 8.9 fL 6.7-11.0 N IMMATURE GRANULOCYTE % (test code = IG%) 5.4 % 0.0-5.0 H "The appearance of immature granulocytes (myelocytes,pro-myelocytes, meta-myelocytes) in the peripheral blood ofnon- individuals can indicate a response toinfection, inflammation, or other stimulus to the bonemarrow" NUCLEATED RBC % (test code = NRBC%) 0.0 % 0-0 N NEUTROPHIL # (test code = NT#) 11.08 K/mm3 1.8-7.7 H IMMATURE GRANULOCYTE # (test code = IG#) 0.76 x10 3/uL 0-0.03 H LYMPHOCYTE # (test code = LY#) 1.18 K/mm3 1.0-5.0 N MONOCYTE # (test code = MO#) 0.73 K/mm3 0-0.8 N EOSINOPHIL # (test code = EO#) 0.31 K/mm3 0.0-0.5 N BASOPHIL # (test code = BA#) 0.10 K/mm3 0.0-0.2 N NUCLEATED RBC # (test code = NRBC#) 0.00 K/mm3 0.0-0.1 N MANUAL DIFF REQUIRED (test code = MDIFF) YES STAIN ACCEPTABILITY (test code = STN ACCEPTABLE) STAIN ACCEPTABLE TOTAL CELLS COUNTED (test code = TCC) 115 #CELLS SEGMENTED NEUTROPHILS (test code = SEG) 83.5 % 39-69 H BAND NEUTROPHIL (test code = BAND) 0 % 0-10 N LYMPHOCYTE (test code = LYMPH) 6.1 % 25-55 L REACTIVE LYMPH (test code = RELYMPH) 0 % MONOCYTE (test code = MON) 2.6 % 0-10 N EOSINOPHIL (test code = EOS) 3.5 % 0.0-5.0 N BASOPHIL (test code = BASO) 0.8 % 0-1.0 N METAMYELOCYTE (test code = META) 0 % 0-0 N MYELOCYTE (test code = MYELO) 3.5 % 0.0-0.0 H PROMYELOCYTE (test code = PROM) 0 % 0-0 N POLYCHROMASIA (test code = POLC) 1+ POIKILOCYTOSIS (test code = POIK) 1+ ANISOCYTOSIS (test code = ANISO) 1+ MORPHOLOGY COMMENT (test code = MOC) NORMAL PLATELET ESTIMATE (test code = PLTEST) ADEQUATE PLATELET MORPHOLOGY (test code = PLTMORPH) NORMAL IMMATURE FORMS (test code = IMMAT) 0 % 0-0 N CBC W/MANUAL [id number] 06:27:00* Test Item Value Reference Range Interpretation Comments WHITE BLOOD CELL (test code = WBC) 14.2 K/mm3 4.5-12.5 H RED BLOOD CELL (test code = RBC) 2.59 mill/mm3 4.0-5.8 L HEMOGLOBIN (test code = HGB) 7.4 gram/dL 13.0-17.5 L HEMATOCRIT (test code = HCT) 23.6 % 42.0-52.0 L MEAN CELL VOLUME (test code = MCV) 91.1 fL 80-98 N MEAN CELL HGB (test code = MCH) 28.6 picogram 27.0-33.0 N MEAN CELL HGB CONCETRATION (test code = MCHC) 31.4 gram/dL 33.0-36. 0 L RED CELL DISTRIBUTION WIDTH (test code = RDW) 14.2 % 11.6-16. 2 N RED CELL DISTRIBUTION WIDTH SD (test code = RDW-SD) 47.4 fL 37 .0-51.0 N PLATELET COUNT (test code = PLT) 358 K/mm3 150-450 N MEAN PLATELET VOLUME (test code = MPV) 8.9 fL 6.7-11.0 N IMMATURE GRANULOCYTE % (test code = IG%) 5.4 % 0.0-5.0 H "The appearance of immature granulocytes (myelocytes,pro-myelocytes, meta-myelocytes) in the peripheral blood ofnon- individuals can indicate a response toinfection, inflammation, or other stimulus to the bonemarrow" NUCLEATED RBC % (test code = NRBC%) 0.0 % 0-0 N NEUTROPHIL # (test code = NT#) 11.08 K/mm3 1.8-7.7 H IMMATURE GRANULOCYTE # (test code = IG#) 0.76 x10 3/uL 0-0.03 H LYMPHOCYTE # (test code = LY#) 1.18 K/mm3 1.0-5.0 N MONOCYTE # (test code = MO#) 0.73 K/mm3 0-0.8 N EOSINOPHIL # (test code = EO#) 0.31 K/mm3 0.0-0.5 N BASOPHIL # (test code = BA#) 0.10 K/mm3 0.0-0.2 N NUCLEATED RBC # (test code = NRBC#) 0.00 K/mm3 0.0-0.1 N MANUAL DIFF REQUIRED (test code = MDIFF) YES STAIN ACCEPTABILITY (test code = STN ACCEPTABLE) TOTAL CELLS COUNTED (test code = TCC) #CELLS SEGMENTED NEUTROPHILS (test code = SEG) % 39-69 LYMPHOCYTE (test code = LYMPH) % 25-55 MONOCYTE (test code = MON) % 0-10 EOSINOPHIL (test code = EOS) % 0.0-5.0 CABOT RINGS (test code = CAB) MORPHOLOGY COMMENT (test code = MOC) PLATELET ESTIMATE (test code = PLTEST) PLATELET MORPHOLOGY (test code = PLTMORPH) BASIC METABOLIC [id number] 06:27:00* Test Item Value Reference Range Interpretation Comments SODIUM (test code = NA) 139 mmol/L 136-145 N POTASSIUM (test code = K) 3.8 mmol/L 3.5-5.1 N CHLORIDE (test code = CL) 104.0 mmol/L 98-107 N CARBON DIOXIDE (test code = CO2) 28.0 mmol/L 21-32 N ANION GAP (test code = GAP) 10.8 10-20 N GLUCOSE (test code = GLU) 119 mg/dL 74-106 H BLOOD UREA NITROGEN (test code = BUN) 12 mg/dL 7-18 N GLOMERULAR FILTRATION RATE (test code = GFR) > 60 mL/min >=60 Estimated GFR by using Modified MDRD formula.Chronic kidney disease is defined as either kidney damageor GFR <60 mL/min/1.73 m2 for >3 months. CREATININE (test code = CREAT) 0.60 mg/dL 0.7-1.3 L BUN/CREATININE RATIO (test code = BUN/CREA) 21.2 10-20 H CALCIUM (test code = CA) 8.3 mg/dL 8.5-10.1 L CBC W/MANUAL [id number] 06:27:00* Test Item Value Reference Range Interpretation Comments WHITE BLOOD CELL (test code = WBC) 14.2 K/mm3 4.5-12.5 H RED BLOOD CELL (test code = RBC) 2.59 mill/mm3 4.0-5.8 L HEMOGLOBIN (test code = HGB) 7.4 gram/dL 13.0-17.5 L HEMATOCRIT (test code = HCT) 23.6 % 42.0-52.0 L MEAN CELL VOLUME (test code = MCV) 91.1 fL 80-98 N MEAN CELL HGB (test code = MCH) 28.6 picogram 27.0-33.0 N MEAN CELL HGB CONCETRATION (test code = MCHC) 31.4 gram/dL 33.0-36. 0 L RED CELL DISTRIBUTION WIDTH (test code = RDW) 14.2 % 11.6-16. 2 N RED CELL DISTRIBUTION WIDTH SD (test code = RDW-SD) 47.4 fL 37 .0-51.0 N PLATELET COUNT (test code = PLT) 358 K/mm3 150-450 N MEAN PLATELET VOLUME (test code = MPV) 8.9 fL 6.7-11.0 N IMMATURE GRANULOCYTE % (test code = IG%) 5.4 % 0.0-5.0 H "The appearance of immature granulocytes (myelocytes,pro-myelocytes, meta-myelocytes) in the peripheral blood ofnon- individuals can indicate a response toinfection, inflammation, or other stimulus to the bonemarrow" NUCLEATED RBC % (test code = NRBC%) 0.0 % 0-0 N NEUTROPHIL # (test code = NT#) 11.08 K/mm3 1.8-7.7 H IMMATURE GRANULOCYTE # (test code = IG#) 0.76 x10 3/uL 0-0.03 H LYMPHOCYTE # (test code = LY#) 1.18 K/mm3 1.0-5.0 N MONOCYTE # (test code = MO#) 0.73 K/mm3 0-0.8 N EOSINOPHIL # (test code = EO#) 0.31 K/mm3 0.0-0.5 N BASOPHIL # (test code = BA#) 0.10 K/mm3 0.0-0.2 N NUCLEATED RBC # (test code = NRBC#) 0.00 K/mm3 0.0-0.1 N MANUAL DIFF REQUIRED (test code = MDIFF) YES STAIN ACCEPTABILITY (test code = STN ACCEPTABLE) TOTAL CELLS COUNTED (test code = TCC) #CELLS SEGMENTED NEUTROPHILS (test code = SEG) % 39-69 LYMPHOCYTE (test code = LYMPH) % 25-55 MONOCYTE (test code = MON) % 0-10 EOSINOPHIL (test code = EOS) % 0.0-5.0 CABOT RINGS (test code = CAB) MORPHOLOGY COMMENT (test code = MOC) PLATELET ESTIMATE (test code = PLTEST) PLATELET MORPHOLOGY (test code = PLTMORPH) CBC W/MANUAL [id number] 06:27:00* Test Item Value Reference Range Interpretation Comments WHITE BLOOD CELL (test code = WBC) 14.2 K/mm3 4.5-12.5 H RED BLOOD CELL (test code = RBC) 2.59 mill/mm3 4.0-5.8 L HEMOGLOBIN (test code = HGB) 7.4 gram/dL 13.0-17.5 L HEMATOCRIT (test code = HCT) 23.6 % 42.0-52.0 L MEAN CELL VOLUME (test code = MCV) 91.1 fL 80-98 N MEAN CELL HGB (test code = MCH) 28.6 picogram 27.0-33.0 N MEAN CELL HGB CONCETRATION (test code = MCHC) 31.4 gram/dL 33.0-36. 0 L RED CELL DISTRIBUTION WIDTH (test code = RDW) 14.2 % 11.6-16. 2 N RED CELL DISTRIBUTION WIDTH SD (test code = RDW-SD) 47.4 fL 37 .0-51.0 N PLATELET COUNT (test code = PLT) 358 K/mm3 150-450 N MEAN PLATELET VOLUME (test code = MPV) 8.9 fL 6.7-11.0 N IMMATURE GRANULOCYTE % (test code = IG%) 5.4 % 0.0-5.0 H "The appearance of immature granulocytes (myelocytes,pro-myelocytes, meta-myelocytes) in the peripheral blood ofnon- individuals can indicate a response toinfection, inflammation, or other stimulus to the bonemarrow" NUCLEATED RBC % (test code = NRBC%) 0.0 % 0-0 N NEUTROPHIL # (test code = NT#) 11.08 K/mm3 1.8-7.7 H IMMATURE GRANULOCYTE # (test code = IG#) 0.76 x10 3/uL 0-0.03 H LYMPHOCYTE # (test code = LY#) 1.18 K/mm3 1.0-5.0 N MONOCYTE # (test code = MO#) 0.73 K/mm3 0-0.8 N EOSINOPHIL # (test code = EO#) 0.31 K/mm3 0.0-0.5 N BASOPHIL # (test code = BA#) 0.10 K/mm3 0.0-0.2 N NUCLEATED RBC # (test code = NRBC#) 0.00 K/mm3 0.0-0.1 N MANUAL DIFF REQUIRED (test code = MDIFF) YES STAIN ACCEPTABILITY (test code = STN ACCEPTABLE) TOTAL CELLS COUNTED (test code = TCC) #CELLS SEGMENTED NEUTROPHILS (test code = SEG) % 39-69 LYMPHOCYTE (test code = LYMPH) % 25-55 MONOCYTE (test code = MON) % 0-10 EOSINOPHIL (test code = EOS) % 0.0-5.0 MORPHOLOGY COMMENT (test code = MOC) PLATELET ESTIMATE (test code = PLTEST) PLATELET MORPHOLOGY (test code = PLTMORPH) CBC W/MANUAL [id number] 06:27:00* Test Item Value Reference Range Interpretation Comments WHITE BLOOD CELL (test code = WBC) 14.2 K/mm3 4.5-12.5 H RED BLOOD CELL (test code = RBC) 2.59 mill/mm3 4.0-5.8 L HEMOGLOBIN (test code = HGB) 7.4 gram/dL 13.0-17.5 L HEMATOCRIT (test code = HCT) 23.6 % 42.0-52.0 L MEAN CELL VOLUME (test code = MCV) 91.1 fL 80-98 N MEAN CELL HGB (test code = MCH) 28.6 picogram 27.0-33.0 N MEAN CELL HGB CONCETRATION (test code = MCHC) 31.4 gram/dL 33.0-36. 0 L RED CELL DISTRIBUTION WIDTH (test code = RDW) 14.2 % 11.6-16. 2 N RED CELL DISTRIBUTION WIDTH SD (test code = RDW-SD) 47.4 fL 37 .0-51.0 N PLATELET COUNT (test code = PLT) 358 K/mm3 150-450 N MEAN PLATELET VOLUME (test code = MPV) 8.9 fL 6.7-11.0 N IMMATURE GRANULOCYTE % (test code = IG%) 5.4 % 0.0-5.0 H "The appearance of immature granulocytes (myelocytes,pro-myelocytes, meta-myelocytes) in the peripheral blood ofnon- individuals can indicate a response toinfection, inflammation, or other stimulus to the bonemarrow" NUCLEATED RBC % (test code = NRBC%) 0.0 % 0-0 N NEUTROPHIL # (test code = NT#) 11.08 K/mm3 1.8-7.7 H IMMATURE GRANULOCYTE # (test code = IG#) 0.76 x10 3/uL 0-0.03 H LYMPHOCYTE # (test code = LY#) 1.18 K/mm3 1.0-5.0 N MONOCYTE # (test code = MO#) 0.73 K/mm3 0-0.8 N EOSINOPHIL # (test code = EO#) 0.31 K/mm3 0.0-0.5 N BASOPHIL # (test code = BA#) 0.10 K/mm3 0.0-0.2 N NUCLEATED RBC # (test code = NRBC#) 0.00 K/mm3 0.0-0.1 N MANUAL DIFF REQUIRED (test code = MDIFF) YES STAIN ACCEPTABILITY (test code = STN ACCEPTABLE) TOTAL CELLS COUNTED (test code = TCC) #CELLS SEGMENTED NEUTROPHILS (test code = SEG) % 39-69 LYMPHOCYTE (test code = LYMPH) % 25-55 MONOCYTE (test code = MON) % 0-10 MORPHOLOGY COMMENT (test code = MOC) PLATELET ESTIMATE (test code = PLTEST) PLATELET MORPHOLOGY (test code = PLTMORPH) CBC W/MANUAL [id number] 06:27:00* Test Item Value Reference Range Interpretation Comments WHITE BLOOD CELL (test code = WBC) 14.2 K/mm3 4.5-12.5 H RED BLOOD CELL (test code = RBC) 2.59 mill/mm3 4.0-5.8 L HEMOGLOBIN (test code = HGB) 7.4 gram/dL 13.0-17.5 L HEMATOCRIT (test code = HCT) 23.6 % 42.0-52.0 L MEAN CELL VOLUME (test code = MCV) 91.1 fL 80-98 N MEAN CELL HGB (test code = MCH) 28.6 picogram 27.0-33.0 N MEAN CELL HGB CONCETRATION (test code = MCHC) 31.4 gram/dL 33.0-36. 0 L RED CELL DISTRIBUTION WIDTH (test code = RDW) 14.2 % 11.6-16. 2 N RED CELL DISTRIBUTION WIDTH SD (test code = RDW-SD) 47.4 fL 37 .0-51.0 N PLATELET COUNT (test code = PLT) 358 K/mm3 150-450 N MEAN PLATELET VOLUME (test code = MPV) 8.9 fL 6.7-11.0 N IMMATURE GRANULOCYTE % (test code = IG%) 5.4 % 0.0-5.0 H "The appearance of immature granulocytes (myelocytes,pro-myelocytes, meta-myelocytes) in the peripheral blood ofnon- individuals can indicate a response toinfection, inflammation, or other stimulus to the bonemarrow" NUCLEATED RBC % (test code = NRBC%) 0.0 % 0-0 N NEUTROPHIL # (test code = NT#) 11.08 K/mm3 1.8-7.7 H IMMATURE GRANULOCYTE # (test code = IG#) 0.76 x10 3/uL 0-0.03 H LYMPHOCYTE # (test code = LY#) 1.18 K/mm3 1.0-5.0 N MONOCYTE # (test code = MO#) 0.73 K/mm3 0-0.8 N EOSINOPHIL # (test code = EO#) 0.31 K/mm3 0.0-0.5 N BASOPHIL # (test code = BA#) 0.10 K/mm3 0.0-0.2 N NUCLEATED RBC # (test code = NRBC#) 0.00 K/mm3 0.0-0.1 N MANUAL DIFF REQUIRED (test code = MDIFF) YES STAIN ACCEPTABILITY (test code = STN ACCEPTABLE) TOTAL CELLS COUNTED (test code = TCC) #CELLS SEGMENTED NEUTROPHILS (test code = SEG) % 39-69 LYMPHOCYTE (test code = LYMPH) % 25-55 MONOCYTE (test code = MON) % 0-10 EOSINOPHIL (test code = EOS) % 0.0-5.0 CABOT RINGS (test code = CAB) MORPHOLOGY COMMENT (test code = MOC) PLATELET ESTIMATE (test code = PLTEST) PLATELET MORPHOLOGY (test code = PLTMORPH) BASIC METABOLIC [id number] 06:18:00* Test Item Value Reference Range Interpretation Comments SODIUM (test code = NA) 139 mmol/L 136-145 N POTASSIUM (test code = K) 3.8 mmol/L 3.5-5.1 N CHLORIDE (test code = CL) 104.0 mmol/L 98-107 N CARBON DIOXIDE (test code = CO2) mmol/L 21-32 ANION GAP (test code = GAP) 10-20 GLUCOSE (test code = GLU) mg/dL 74-106 BLOOD UREA NITROGEN (test code = BUN) mg/dL 7-18 GLOMERULAR FILTRATION RATE (test code = GFR) mL/min >=60 CREATININE (test code = CREAT) mg/dL 0.7-1.3 BUN/CREATININE RATIO (test code = BUN/CREA) 10-20 CALCIUM (test code = CA) mg/dL 8.5-10.1 [id number] 03:44:00* Test Item Value Reference Range Interpretation Comments TROPONIN-I (test code = TROPI) <0.015 ng/mL 0-0.045 N [id number] 23:58:00* Test Item Value Reference Range Interpretation Comments TROPONIN-I (test code = TROPI) <0.015 ng/mL 0-0.045 N [id number] 21:18:00* Test Item Value Reference Range Interpretation Comments GLUBED (test code = GLUBED) 189 mg/dL 74-106 H Per[facility] [id number] 17:08:00* Test Item Value Reference Range Interpretation Comments TROPONIN-I (test code = TROPI) <0.015 ng/mL 0-0.045 N [id number] 16:34:00* Test Item Value Reference Range Interpretation Comments GLUBED (test code = GLUBED) 151 mg/dL 74-106 H Performed by certified photogravure press operator at [facility] [id number] 11:36:00* Test Item Value Reference Range Interpretation Comments GLUBED (test code = GLUBED) 163 mg/dL 74-106 H Performed by certified photogravure press operator at [facility] [id number] 10:47:00* Test Item Value Reference Range Interpretation Comments TROPONIN-I (test code = TROPI) <0.015 ng/mL 0-0.045 N [id number] 07:56:00* Test Item Value Reference Range Interpretation Comments GLUBED (test code = GLUBED) 100 mg/dL 74-106 N Performed by certified photogravure press operator at [facility] BASIC METABOLIC [id number] 06:36:00* Test Item Value Reference Range Interpretation Comments SODIUM (test code = NA) 138 mmol/L 136-145 N POTASSIUM (test code = K) 3.9 mmol/L 3.5-5.1 N CHLORIDE (test code = CL) 106.0 mmol/L 98-107 N CARBON DIOXIDE (test code = CO2) 24.0 mmol/L 21-32 N ANION GAP (test code = GAP) 11.9 10-20 N GLUCOSE (test code = GLU) 125 mg/dL 74-106 H BLOOD UREA NITROGEN (test code = BUN) 11 mg/dL 7-18 N GLOMERULAR FILTRATION RATE (test code = GFR) > 60 mL/min >=60 Estimated GFR by using Modified MDRD formula.Chronic kidney disease is defined as either kidney damageor GFR <60 mL/min/1.73 m2 for >3 months. CREATININE (test code = CREAT) 0.60 mg/dL 0.7-1.3 L BUN/CREATININE RATIO (test code = BUN/CREA) 18.2 10-20 N CALCIUM (test code = CA) 8.2 mg/dL 8.5-10.1 L CBC W/AUTO [id number] 06:35:00* Test Item Value Reference Range Interpretation Comments WHITE BLOOD CELL (test code = WBC) 19.0 K/mm3 4.5-12.5 H RED BLOOD CELL (test code = RBC) 2.80 mill/mm3 4.0-5.8 L HEMOGLOBIN (test code = HGB) 8.2 gram/dL 13.0-17.5 L HEMATOCRIT (test code = HCT) 25.8 % 42.0-52.0 L MEAN CELL VOLUME (test code = MCV) 92.1 fL 80-98 RESULT VERIFIED BY REPEAT ANALYSIS MEAN CELL HGB (test code = MCH) 29.3 picogram 27.0-33.0 N MEAN CELL HGB CONCETRATION (test code = MCHC) 31.8 gram/dL 33.0-36. 0 L RED CELL DISTRIBUTION WIDTH (test code = RDW) 14.2 % 11.6-16. 2 N RED CELL DISTRIBUTION WIDTH SD (test code = RDW-SD) 47.9 fL 37 .0-51.0 N PLATELET COUNT (test code = PLT) 346 K/mm3 150-450 RESULT VERIFIED BY REPEAT ANALYSIS MEAN PLATELET VOLUME (test code = MPV) 9.2 fL 6.7-11.0 N NEUTROPHIL % (test code = NT%) 80.8 % 39.0-69.0 H IMMATURE GRANULOCYTE % (test code = IG%) 3.8 % 0.0-5.0 N LYMPHOCYTE % (test code = LY%) 8.7 % 25.0-55.0 L MONOCYTE % (test code = MO%) 4.5 % 0.0-10.0 N EOSINOPHIL % (test code = EO%) 1.7 % 0.0-5.0 N BASOPHIL % (test code = BA%) 0.5 % 0.0-1.0 N NUCLEATED RBC % (test code = NRBC%) 0.0 % 0-0 N NEUTROPHIL # (test code = NT#) 15.32 K/mm3 1.8-7.7 H IMMATURE GRANULOCYTE # (test code = IG#) 0.73 x10 3/uL 0-0.03 H LYMPHOCYTE # (test code = LY#) 1.65 K/mm3 1.0-5.0 N MONOCYTE # (test code = MO#) 0.85 K/mm3 0-0.8 H EOSINOPHIL # (test code = EO#) 0.33 K/mm3 0.0-0.5 N BASOPHIL # (test code = BA#) 0.09 K/mm3 0.0-0.2 N NUCLEATED RBC # (test code = NRBC#) 0.00 K/mm3 0.0-0.1 N BASIC METABOLIC [id number] 06:32:00* Test Item Value Reference Range Interpretation Comments SODIUM (test code = NA) 138 mmol/L 136-145 N POTASSIUM (test code = K) 3.9 mmol/L 3.5-5.1 N CHLORIDE (test code = CL) 106.0 mmol/L 98-107 N CARBON DIOXIDE (test code = CO2) mmol/L 21-32 ANION GAP (test code = GAP) 10-20 GLUCOSE (test code = GLU) mg/dL 74-106 BLOOD UREA NITROGEN (test code = BUN) mg/dL 7-18 GLOMERULAR FILTRATION RATE (test code = GFR) mL/min >=60 CREATININE (test code = CREAT) mg/dL 0.7-1.3 BUN/CREATININE RATIO (test code = BUN/CREA) 10-20 CALCIUM (test code = CA) mg/dL 8.5-10.1 [id number] 16:38:00* Test Item Value Reference Range Interpretation Comments GLUBED (test code = GLUBED) 197 mg/dL 74-106 H Performed by certified photogravure press [facility] [id number] 12:13:00* Test Item Value Reference Range Interpretation Comments GLUBED (test code = GLUBED) 220 mg/dL 74-106 H Performed by certified photogravure press operator [facility] [id number] 08:08:00* Test Item Value Reference Range Interpretation Comments GLUBED (test code = GLUBED) 112 mg/dL 74-106 H Performed by certified photogravure press operator [facility] CBC W/AUTO [id number] 07:33:00* Test Item Value Reference Range Interpretation Comments WHITE BLOOD CELL (test code = WBC) 19.5 K/mm3 4.5-12.5 H RED BLOOD CELL (test code = RBC) 2.58 mill/mm3 4.0-5.8 L HEMOGLOBIN (test code = HGB) 7.7 gram/dL 13.0-17.5 L HEMATOCRIT (test code = HCT) 27.3 % 42.0-52.0 L MEAN CELL VOLUME (test code = MCV) 105.8 fL 80-98 H MEAN CELL HGB (test code = MCH) 29.8 picogram 27.0-33.0 N MEAN CELL HGB CONCETRATION (test code = MCHC) 28.2 gram/dL 33.0-36. 0 L RED CELL DISTRIBUTION WIDTH (test code = RDW) 14.3 % 11.6-16. 2 N RED CELL DISTRIBUTION WIDTH SD (test code = RDW-SD) 54.0 fL 37 .0-51.0 H PLATELET COUNT (test code = PLT) 171 K/mm3 150-450 RESULT VERIFIED BY REPEAT ANALYSIS MEAN PLATELET VOLUME (test code = MPV) 9.4 fL 6.7-11.0 N NEUTROPHIL % (test code = NT%) 86.3 % 39.0-69.0 H IMMATURE GRANULOCYTE % (test code = IG%) 2.3 % 0.0-5.0 N LYMPHOCYTE % (test code = LY%) 6.4 % 25.0-55.0 L MONOCYTE % (test code = MO%) 3.9 % 0.0-10.0 N EOSINOPHIL % (test code = EO%) 0.7 % 0.0-5.0 N BASOPHIL % (test code = BA%) 0.4 % 0.0-1.0 N NUCLEATED RBC % (test code = NRBC%) 0.0 % 0-0 N NEUTROPHIL # (test code = NT#) 16.81 K/mm3 1.8-7.7 H IMMATURE GRANULOCYTE # (test code = IG#) 0.45 x10 3/uL 0-0.03 H LYMPHOCYTE # (test code = LY#) 1.25 K/mm3 1.0-5.0 N MONOCYTE # (test code = MO#) 0.76 K/mm3 0-0.8 N EOSINOPHIL # (test code = EO#) 0.13 K/mm3 0.0-0.5 N BASOPHIL # (test code = BA#) 0.08 K/mm3 0.0-0.2 N NUCLEATED RBC # (test code = NRBC#) 0.00 K/mm3 0.0-0.1 N BASIC METABOLIC [id number] 07:19:00* Test Item Value Reference Range Interpretation Comments SODIUM (test code = NA) 139 mmol/L 136-145 N POTASSIUM (test code = K) 4.5 mmol/L 3.5-5.1 N CHLORIDE (test code = CL) 107.0 mmol/L 98-107 N CARBON DIOXIDE (test code = CO2) 22.0 mmol/L 21-32 N ANION GAP (test code = GAP) 14.5 10-20 N GLUCOSE (test code = GLU) 130 mg/dL 74-106 H BLOOD UREA NITROGEN (test code = BUN) 16 mg/dL 7-18 N GLOMERULAR FILTRATION RATE (test code = GFR) > 60 mL/min >=60 Estimated GFR by using Modified MDRD formula.Chronic kidney disease is defined as either kidney damageor GFR <60 mL/min/1.73 m2 for >3 months. CREATININE (test code = CREAT) 0.70 mg/dL 0.7-1.3 N BUN/CREATININE RATIO (test code = BUN/CREA) 22.2 10-20 H CALCIUM (test code = CA) 8.1 mg/dL 8.5-10.1 L BASIC METABOLIC [id number] 07:17:00* Test Item Value Reference Range Interpretation Comments SODIUM (test code = NA) 139 mmol/L 136-145 N POTASSIUM (test code = K) 4.5 mmol/L 3.5-5.1 N CHLORIDE (test code = CL) 107.0 mmol/L 98-107 N CARBON DIOXIDE (test code = CO2) mmol/L 21-32 ANION GAP (test code = GAP) 10-20 GLUCOSE (test code = GLU) mg/dL 74-106 BLOOD UREA NITROGEN (test code = BUN) mg/dL 7-18 GLOMERULAR FILTRATION RATE (test code = GFR) mL/min >=60 CREATININE (test code = CREAT) mg/dL 0.7-1.3 BUN/CREATININE RATIO (test code = BUN/CREA) 10-20 CALCIUM (test code = CA) mg/dL 8.5-10.1 [id number] 20:59:00* Test Item Value Reference Range Interpretation Comments GLUBED (test code = GLUBED) 246 mg/dL 74-106 H Performed by certified photogravure press operator at [facility] [id number] 18:02:00* Test Item Value Reference Range Interpretation Comments GLUBED (test code = GLUBED) 257 mg/dL 74-106 H Performed by certified photogravure press operator [facility] [id number] 13:02:00* Test Item Value Reference Range Interpretation Comments GLUBED (test code = GLUBED) 143 mg/dL 74-106 H Performed by certified photogravure press operator [facility] [id number] 09:09:00* Test Item Value Reference Range Interpretation Comments GLUBED (test code = GLUBED) 170 mg/dL 74-106 H Performed by certified photogravure press operator [facility] CBC W/MANUAL [id number] 06:18:00* Test Item Value Reference Range Interpretation Comments WHITE BLOOD CELL (test code = WBC) 25.6 K/mm3 4.5-12.5 H RED BLOOD CELL (test code = RBC) 2.45 mill/mm3 4.0-5.8 L HEMOGLOBIN (test code = HGB) 7.2 gram/dL 13.0-17.5 L HEMATOCRIT (test code = HCT) 22.6 % 42.0-52.0 L MEAN CELL VOLUME (test code = MCV) 92.2 fL 80-98 N MEAN CELL HGB (test code = MCH) 29.4 picogram 27.0-33.0 N MEAN CELL HGB CONCETRATION (test code = MCHC) 31.9 gram/dL 33.0-36. 0 L RED CELL DISTRIBUTION WIDTH (test code = RDW) 14.5 % 11.6-16. 2 N RED CELL DISTRIBUTION WIDTH SD (test code = RDW-SD) 49.0 fL 37 .0-51.0 N PLATELET COUNT (test code = PLT) 345 K/mm3 150-450 N MEAN PLATELET VOLUME (test code = MPV) 9.0 fL 6.7-11.0 N IMMATURE GRANULOCYTE % (test code = IG%) 1.1 % 0.0-5.0 N NUCLEATED RBC % (test code = NRBC%) 0.0 % 0-0 N NEUTROPHIL # (test code = NT#) 23.22 K/mm3 1.8-7.7 H IMMATURE GRANULOCYTE # (test code = IG#) 0.28 x10 3/uL 0-0.03 H LYMPHOCYTE # (test code = LY#) 1.25 K/mm3 1.0-5.0 N MONOCYTE # (test code = MO#) 0.79 K/mm3 0-0.8 N EOSINOPHIL # (test code = EO#) 0.00 K/mm3 0.0-0.5 N BASOPHIL # (test code = BA#) 0.05 K/mm3 0.0-0.2 N NUCLEATED RBC # (test code = NRBC#) 0.00 K/mm3 0.0-0.1 N MANUAL DIFF REQUIRED (test code = MDIFF) YES STAIN ACCEPTABILITY (test code = STN ACCEPTABLE) STAIN ACCEPTABLE TOTAL CELLS COUNTED (test code = TCC) 115 #CELLS SEGMENTED NEUTROPHILS (test code = SEG) 93.9 % 39-69 H BAND NEUTROPHIL (test code = BAND) 0 % 0-10 N LYMPHOCYTE (test code = LYMPH) 2.6 % 25-55 L REACTIVE LYMPH (test code = RELYMPH) 0 % MONOCYTE (test code = MON) 2.6 % 0-10 N EOSINOPHIL (test code = EOS) 0 % 0.0-5.0 N BASOPHIL (test code = BASO) 0 % 0-1.0 N METAMYELOCYTE (test code = META) 0 % 0-0 N MYELOCYTE (test code = MYELO) 0.9 % 0.0-0.0 H PROMYELOCYTE (test code = PROM) 0 % 0-0 N POIKILOCYTOSIS (test code = POIK) 1+ ANISOCYTOSIS (test code = ANISO) 1+ PLATELET ESTIMATE (test code = PLTEST) ADEQUATE PLATELET MORPHOLOGY (test code = PLTMORPH) NORMAL IMMATURE FORMS (test code = IMMAT) 0 % 0-0 N BASIC METABOLIC [id number] 06:12:00* Test Item Value Reference Range Interpretation Comments SODIUM (test code = NA) 143 mmol/L 136-145 N POTASSIUM (test code = K) 4.6 mmol/L 3.5-5.1 N CHLORIDE (test code = CL) 111.0 mmol/L 98-107 H CARBON DIOXIDE (test code = CO2) 24.0 mmol/L 21-32 N ANION GAP (test code = GAP) 12.6 10-20 N GLUCOSE (test code = GLU) 209 mg/dL 74-106 H BLOOD UREA NITROGEN (test code = BUN) 17 mg/dL 7-18 N GLOMERULAR FILTRATION RATE (test code = GFR) > 60 mL/min >=60 Estimated GFR by using Modified MDRD formula.Chronic kidney disease is defined as either kidney damageor GFR <60 mL/min/1.73 m2 for >3 months. CREATININE (test code = CREAT) 0.80 mg/dL 0.7-1.3 N BUN/CREATININE RATIO (test code = BUN/CREA) 21.7 10-20 H CALCIUM (test code = CA) 8.3 mg/dL 8.5-10.1 L CBC W/MANUAL [id number] 05:31:00* Test Item Value Reference Range Interpretation Comments WHITE BLOOD CELL (test code = WBC) 25.6 K/mm3 4.5-12.5 H RED BLOOD CELL (test code = RBC) 2.45 mill/mm3 4.0-5.8 L HEMOGLOBIN (test code = HGB) 7.2 gram/dL 13.0-17.5 L HEMATOCRIT (test code = HCT) 22.6 % 42.0-52.0 L MEAN CELL VOLUME (test code = MCV) 92.2 fL 80-98 N MEAN CELL HGB (test code = MCH) 29.4 picogram 27.0-33.0 N MEAN CELL HGB CONCETRATION (test code = MCHC) 31.9 gram/dL 33.0-36. 0 L RED CELL DISTRIBUTION WIDTH (test code = RDW) 14.5 % 11.6-16. 2 N RED CELL DISTRIBUTION WIDTH SD (test code = RDW-SD) 49.0 fL 37 .0-51.0 N PLATELET COUNT (test code = PLT) 345 K/mm3 150-450 N MEAN PLATELET VOLUME (test code = MPV) 9.0 fL 6.7-11.0 N IMMATURE GRANULOCYTE % (test code = IG%) 1.1 % 0.0-5.0 N NUCLEATED RBC % (test code = NRBC%) 0.0 % 0-0 N NEUTROPHIL # (test code = NT#) 23.22 K/mm3 1.8-7.7 H IMMATURE GRANULOCYTE # (test code = IG#) 0.28 x10 3/uL 0-0.03 H LYMPHOCYTE # (test code = LY#) 1.25 K/mm3 1.0-5.0 N MONOCYTE # (test code = MO#) 0.79 K/mm3 0-0.8 N EOSINOPHIL # (test code = EO#) 0.00 K/mm3 0.0-0.5 N BASOPHIL # (test code = BA#) 0.05 K/mm3 0.0-0.2 N NUCLEATED RBC # (test code = NRBC#) 0.00 K/mm3 0.0-0.1 N MANUAL DIFF REQUIRED (test code = MDIFF) YES STAIN ACCEPTABILITY (test code = STN ACCEPTABLE) TOTAL CELLS COUNTED (test code = TCC) #CELLS SEGMENTED NEUTROPHILS (test code = SEG) % 39-69 LYMPHOCYTE (test code = LYMPH) % 25-55 MONOCYTE (test code = MON) % 0-10 EOSINOPHIL (test code = EOS) % 0.0-5.0 CABOT RINGS (test code = CAB) MORPHOLOGY COMMENT (test code = MOC) PLATELET ESTIMATE (test code = PLTEST) PLATELET MORPHOLOGY (test code = PLTMORPH) CBC W/MANUAL [id number] 05:31:00* Test Item Value Reference Range Interpretation Comments WHITE BLOOD CELL (test code = WBC) 25.6 K/mm3 4.5-12.5 H RED BLOOD CELL (test code = RBC) 2.45 mill/mm3 4.0-5.8 L HEMOGLOBIN (test code = HGB) 7.2 gram/dL 13.0-17.5 L HEMATOCRIT (test code = HCT) 22.6 % 42.0-52.0 L MEAN CELL VOLUME (test code = MCV) 92.2 fL 80-98 N MEAN CELL HGB (test code = MCH) 29.4 picogram 27.0-33.0 N MEAN CELL HGB CONCETRATION (test code = MCHC) 31.9 gram/dL 33.0-36. 0 L RED CELL DISTRIBUTION WIDTH (test code = RDW) 14.5 % 11.6-16. 2 N RED CELL DISTRIBUTION WIDTH SD (test code = RDW-SD) 49.0 fL 37 .0-51.0 N PLATELET COUNT (test code = PLT) 345 K/mm3 150-450 N MEAN PLATELET VOLUME (test code = MPV) 9.0 fL 6.7-11.0 N IMMATURE GRANULOCYTE % (test code = IG%) 1.1 % 0.0-5.0 N NUCLEATED RBC % (test code = NRBC%) 0.0 % 0-0 N NEUTROPHIL # (test code = NT#) 23.22 K/mm3 1.8-7.7 H IMMATURE GRANULOCYTE # (test code = IG#) 0.28 x10 3/uL 0-0.03 H LYMPHOCYTE # (test code = LY#) 1.25 K/mm3 1.0-5.0 N MONOCYTE # (test code = MO#) 0.79 K/mm3 0-0.8 N EOSINOPHIL # (test code = EO#) 0.00 K/mm3 0.0-0.5 N BASOPHIL # (test code = BA#) 0.05 K/mm3 0.0-0.2 N NUCLEATED RBC # (test code = NRBC#) 0.00 K/mm3 0.0-0.1 N MANUAL DIFF REQUIRED (test code = MDIFF) YES STAIN ACCEPTABILITY (test code = STN ACCEPTABLE) TOTAL CELLS COUNTED (test code = TCC) #CELLS SEGMENTED NEUTROPHILS (test code = SEG) % 39-69 LYMPHOCYTE (test code = LYMPH) % 25-55 MONOCYTE (test code = MON) % 0-10 EOSINOPHIL (test code = EOS) % 0.0-5.0 MORPHOLOGY COMMENT (test code = MOC) PLATELET ESTIMATE (test code = PLTEST) PLATELET MORPHOLOGY (test code = PLTMORPH) CBC W/MANUAL [id number] 05:31:00* Test Item Value Reference Range Interpretation Comments WHITE BLOOD CELL (test code = WBC) 25.6 K/mm3 4.5-12.5 H RED BLOOD CELL (test code = RBC) 2.45 mill/mm3 4.0-5.8 L HEMOGLOBIN (test code = HGB) 7.2 gram/dL 13.0-17.5 L HEMATOCRIT (test code = HCT) 22.6 % 42.0-52.0 L MEAN CELL VOLUME (test code = MCV) 92.2 fL 80-98 N MEAN CELL HGB (test code = MCH) 29.4 picogram 27.0-33.0 N MEAN CELL HGB CONCETRATION (test code = MCHC) 31.9 gram/dL 33.0-36. 0 L RED CELL DISTRIBUTION WIDTH (test code = RDW) 14.5 % 11.6-16. 2 N RED CELL DISTRIBUTION WIDTH SD (test code = RDW-SD) 49.0 fL 37 .0-51.0 N PLATELET COUNT (test code = PLT) 345 K/mm3 150-450 N MEAN PLATELET VOLUME (test code = MPV) 9.0 fL 6.7-11.0 N IMMATURE GRANULOCYTE % (test code = IG%) 1.1 % 0.0-5.0 N NUCLEATED RBC % (test code = NRBC%) 0.0 % 0-0 N NEUTROPHIL # (test code = NT#) 23.22 K/mm3 1.8-7.7 H IMMATURE GRANULOCYTE # (test code = IG#) 0.28 x10 3/uL 0-0.03 H LYMPHOCYTE # (test code = LY#) 1.25 K/mm3 1.0-5.0 N MONOCYTE # (test code = MO#) 0.79 K/mm3 0-0.8 N EOSINOPHIL # (test code = EO#) 0.00 K/mm3 0.0-0.5 N BASOPHIL # (test code = BA#) 0.05 K/mm3 0.0-0.2 N NUCLEATED RBC # (test code = NRBC#) 0.00 K/mm3 0.0-0.1 N MANUAL DIFF REQUIRED (test code = MDIFF) YES STAIN ACCEPTABILITY (test code = STN ACCEPTABLE) TOTAL CELLS COUNTED (test code = TCC) #CELLS SEGMENTED NEUTROPHILS (test code = SEG) % 39-69 LYMPHOCYTE (test code = LYMPH) % 25-55 MONOCYTE (test code = MON) % 0-10 MORPHOLOGY COMMENT (test code = MOC) PLATELET ESTIMATE (test code = PLTEST) PLATELET MORPHOLOGY (test code = PLTMORPH) CBC W/MANUAL [id number] 05:30:00* Test Item Value Reference Range Interpretation Comments WHITE BLOOD CELL (test code = WBC) 25.6 K/mm3 4.5-12.5 H RED BLOOD CELL (test code = RBC) 2.45 mill/mm3 4.0-5.8 L HEMOGLOBIN (test code = HGB) 7.2 gram/dL 13.0-17.5 L HEMATOCRIT (test code = HCT) 22.6 % 42.0-52.0 L MEAN CELL VOLUME (test code = MCV) 92.2 fL 80-98 N MEAN CELL HGB (test code = MCH) 29.4 picogram 27.0-33.0 N MEAN CELL HGB CONCETRATION (test code = MCHC) 31.9 gram/dL 33.0-36. 0 L RED CELL DISTRIBUTION WIDTH (test code = RDW) 14.5 % 11.6-16. 2 N RED CELL DISTRIBUTION WIDTH SD (test code = RDW-SD) 49.0 fL 37 .0-51.0 N PLATELET COUNT (test code = PLT) 345 K/mm3 150-450 N MEAN PLATELET VOLUME (test code = MPV) 9.0 fL 6.7-11.0 N IMMATURE GRANULOCYTE % (test code = IG%) 1.1 % 0.0-5.0 N NUCLEATED RBC % (test code = NRBC%) 0.0 % 0-0 N NEUTROPHIL # (test code = NT#) 23.22 K/mm3 1.8-7.7 H IMMATURE GRANULOCYTE # (test code = IG#) 0.28 x10 3/uL 0-0.03 H LYMPHOCYTE # (test code = LY#) 1.25 K/mm3 1.0-5.0 N MONOCYTE # (test code = MO#) 0.79 K/mm3 0-0.8 N EOSINOPHIL # (test code = EO#) 0.00 K/mm3 0.0-0.5 N BASOPHIL # (test code = BA#) 0.05 K/mm3 0.0-0.2 N NUCLEATED RBC # (test code = NRBC#) 0.00 K/mm3 0.0-0.1 N MANUAL DIFF REQUIRED (test code = MDIFF) YES STAIN ACCEPTABILITY (test code = STN ACCEPTABLE) TOTAL CELLS COUNTED (test code = TCC) #CELLS SEGMENTED NEUTROPHILS (test code = SEG) % 39-69 LYMPHOCYTE (test code = LYMPH) % 25-55 MONOCYTE (test code = MON) % 0-10 EOSINOPHIL (test code = EOS) % 0.0-5.0 CABOT RINGS (test code = CAB) MORPHOLOGY COMMENT (test code = MOC) PLATELET ESTIMATE (test code = PLTEST) PLATELET MORPHOLOGY (test code = PLTMORPH) CBC W/MANUAL [id number] 05:30:00* Test Item Value Reference Range Interpretation Comments WHITE BLOOD CELL (test code = WBC) 25.6 K/mm3 4.5-12.5 H RED BLOOD CELL (test code = RBC) 2.45 mill/mm3 4.0-5.8 L HEMOGLOBIN (test code = HGB) 7.2 gram/dL 13.0-17.5 L HEMATOCRIT (test code = HCT) 22.6 % 42.0-52.0 L MEAN CELL VOLUME (test code = MCV) 92.2 fL 80-98 N MEAN CELL HGB (test code = MCH) 29.4 picogram 27.0-33.0 N MEAN CELL HGB CONCETRATION (test code = MCHC) 31.9 gram/dL 33.0-36. 0 L RED CELL DISTRIBUTION WIDTH (test code = RDW) 14.5 % 11.6-16. 2 N RED CELL DISTRIBUTION WIDTH SD (test code = RDW-SD) 49.0 fL 37 .0-51.0 N PLATELET COUNT (test code = PLT) 345 K/mm3 150-450 N MEAN PLATELET VOLUME (test code = MPV) 9.0 fL 6.7-11.0 N IMMATURE GRANULOCYTE % (test code = IG%) 1.1 % 0.0-5.0 N NUCLEATED RBC % (test code = NRBC%) 0.0 % 0-0 N NEUTROPHIL # (test code = NT#) 23.22 K/mm3 1.8-7.7 H IMMATURE GRANULOCYTE # (test code = IG#) 0.28 x10 3/uL 0-0.03 H LYMPHOCYTE # (test code = LY#) 1.25 K/mm3 1.0-5.0 N MONOCYTE # (test code = MO#) 0.79 K/mm3 0-0.8 N EOSINOPHIL # (test code = EO#) 0.00 K/mm3 0.0-0.5 N BASOPHIL # (test code = BA#) 0.05 K/mm3 0.0-0.2 N NUCLEATED RBC # (test code = NRBC#) 0.00 K/mm3 0.0-0.1 N MANUAL DIFF REQUIRED (test code = MDIFF) YES STAIN ACCEPTABILITY (test code = STN ACCEPTABLE) TOTAL CELLS COUNTED (test code = TCC) #CELLS SEGMENTED NEUTROPHILS (test code = SEG) % 39-69 LYMPHOCYTE (test code = LYMPH) % 25-55 MONOCYTE (test code = MON) % 0-10 EOSINOPHIL (test code = EOS) % 0.0-5.0 CABOT RINGS (test code = CAB) MORPHOLOGY COMMENT (test code = MOC) PLATELET ESTIMATE (test code = PLTEST) PLATELET MORPHOLOGY (test code = PLTMORPH) [id number] 21:06:00* Test Item Value Reference Range Interpretation Comments GLUBED (test code = GLUBED) 172 mg/dL 74-106 H Performed by certified photogravure press operator at [facility] [id number] 16:52:00* Test Item Value Reference Range Interpretation Comments GLUBED (test code = GLUBED) 216 mg/dL 74-106 H Performed by certified phot[facility]ravure press [facility] [id number] 08:13:00* Test Item Value Reference Range Interpretation Comments GLUBED (test code = GLUBED) 130 mg/dL 74-106 H Performed [facility] certified [facility]ravure press [facility] CBC W/MANUAL [id number] 06:59:00* Test Item Value Reference Range Interpretation Comments WHITE BLOOD CELL (test code = WBC) 11.2 K/mm3 4.5-12.5 N RED BLOOD CELL (test code = RBC) 2.81 mill/mm3 4.0-5.8 L HEMOGLOBIN (test code = HGB) 8.3 gram/dL 13.0-17.5 L HEMATOCRIT (test code = HCT) 26.0 % 42.0-52.0 L MEAN CELL VOLUME (test code = MCV) 92.5 fL 80-98 N MEAN CELL HGB (test code = MCH) 29.5 picogram 27.0-33.0 N MEAN CELL HGB CONCETRATION (test code = MCHC) 31.9 gram/dL 33.0-36. 0 L RED CELL DISTRIBUTION WIDTH (test code = RDW) 14.2 % 11.6-16. 2 N RED CELL DISTRIBUTION WIDTH SD (test code = RDW-SD) 48.0 fL 37 .0-51.0 N PLATELET COUNT (test code = PLT) 358 K/mm3 150-450 N MEAN PLATELET VOLUME (test code = MPV) 8.9 fL 6.7-11.0 N IMMATURE GRANULOCYTE % (test code = IG%) 5.8 % 0.0-5.0 H "The appearance of immature granulocytes (myelocytes,pro-myelocytes, meta-myelocytes) in the peripheral blood ofnon- individuals can indicate a response toinfection, inflammation, or other stimulus to the bonemarrow" NUCLEATED RBC % (test code = NRBC%) 0.0 % 0-0 N NEUTROPHIL # (test code = NT#) 8.08 K/mm3 1.8-7.7 H IMMATURE GRANULOCYTE # (test code = IG#) 0.65 x10 3/uL 0-0.03 H LYMPHOCYTE # (test code = LY#) 1.65 K/mm3 1.0-5.0 N MONOCYTE # (test code = MO#) 0.64 K/mm3 0-0.8 N EOSINOPHIL # (test code = EO#) 0.12 K/mm3 0.0-0.5 N BASOPHIL # (test code = BA#) 0.08 K/mm3 0.0-0.2 N NUCLEATED RBC # (test code = NRBC#) 0.00 K/mm3 0.0-0.1 N MANUAL DIFF REQUIRED (test code = MDIFF) YES STAIN ACCEPTABILITY (test code = STN ACCEPTABLE) STAIN ACCEPTABLE TOTAL CELLS COUNTED (test code = TCC) 114 #CELLS SEGMENTED NEUTROPHILS (test code = SEG) 79.8 % 39-69 H BAND NEUTROPHIL (test code = BAND) 0 % 0-10 N LYMPHOCYTE (test code = LYMPH) 11.4 % 25-55 L REACTIVE LYMPH (test code = RELYMPH) 0 % MONOCYTE (test code = MON) 4.4 % 0-10 N EOSINOPHIL (test code = EOS) 0.9 % 0.0-5.0 N BASOPHIL (test code = BASO) 0 % 0-1.0 N METAMYELOCYTE (test code = META) 0.9 % 0-0 H MYELOCYTE (test code = MYELO) 2.6 % 0.0-0.0 H PROMYELOCYTE (test code = PROM) 0 % 0-0 N POIKILOCYTOSIS (test code = POIK) 1+ ANISOCYTOSIS (test code = ANISO) 1+ MICROCYTOSIS (test code = MICR) 1+ OVALOCYTES (test code = OVAL) 1+ PLATELET ESTIMATE (test code = PLTEST) ADEQUATE PLATELET MORPHOLOGY (test code = PLTMORPH) NORMAL IMMATURE FORMS (test code = IMMAT) 0 % 0-0 N BASIC METABOLIC [id number] 06:45:00* Test Item Value Reference Range Interpretation Comments SODIUM (test code = NA) 143 mmol/L 136-145 N POTASSIUM (test code = K) 3.9 mmol/L 3.5-5.1 N CHLORIDE (test code = CL) 111.0 mmol/L 98-107 H CARBON DIOXIDE (test code = CO2) 24.0 mmol/L 21-32 N ANION GAP (test code = GAP) 11.9 10-20 N GLUCOSE (test code = GLU) 175 mg/dL 74-106 H BLOOD UREA NITROGEN (test code = BUN) 19 mg/dL 7-18 H GLOMERULAR FILTRATION RATE (test code = GFR) > 60 mL/min >=60 Estimated GFR by using Modified MDRD formula.Chronic kidney disease is defined as either kidney damageor GFR <60 mL/min/1.73 m2 for >3 months. CREATININE (test code = CREAT) 0.80 mg/dL 0.7-1.3 N BUN/CREATININE RATIO (test code = BUN/CREA) 24.6 10-20 H CALCIUM (test code = CA) 8.4 mg/dL 8.5-10.1 L CBC W/MANUAL [id number] 06:13:00* Test Item Value Reference Range Interpretation Comments WHITE BLOOD CELL (test code = WBC) 11.2 K/mm3 4.5-12.5 N RED BLOOD CELL (test code = RBC) 2.81 mill/mm3 4.0-5.8 L HEMOGLOBIN (test code = HGB) 8.3 gram/dL 13.0-17.5 L HEMATOCRIT (test code = HCT) 26.0 % 42.0-52.0 L MEAN CELL VOLUME (test code = MCV) 92.5 fL 80-98 N MEAN CELL HGB (test code = MCH) 29.5 picogram 27.0-33.0 N MEAN CELL HGB CONCETRATION (test code = MCHC) 31.9 gram/dL 33.0-36. 0 L RED CELL DISTRIBUTION WIDTH (test code = RDW) 14.2 % 11.6-16. 2 N RED CELL DISTRIBUTION WIDTH SD (test code = RDW-SD) 48.0 fL 37 .0-51.0 N PLATELET COUNT (test code = PLT) 358 K/mm3 150-450 N MEAN PLATELET VOLUME (test code = MPV) 8.9 fL 6.7-11.0 N IMMATURE GRANULOCYTE % (test code = IG%) 5.8 % 0.0-5.0 H "The appearance of immature granulocytes (myelocytes,pro-myelocytes, meta-myelocytes) in the peripheral blood ofnon- individuals can indicate a response toinfection, inflammation, or other stimulus to the bonemarrow" NUCLEATED RBC % (test code = NRBC%) 0.0 % 0-0 N NEUTROPHIL # (test code = NT#) 8.08 K/mm3 1.8-7.7 H IMMATURE GRANULOCYTE # (test code = IG#) 0.65 x10 3/uL 0-0.03 H LYMPHOCYTE # (test code = LY#) 1.65 K/mm3 1.0-5.0 N MONOCYTE # (test code = MO#) 0.64 K/mm3 0-0.8 N EOSINOPHIL # (test code = EO#) 0.12 K/mm3 0.0-0.5 N BASOPHIL # (test code = BA#) 0.08 K/mm3 0.0-0.2 N NUCLEATED RBC # (test code = NRBC#) 0.00 K/mm3 0.0-0.1 N MANUAL DIFF REQUIRED (test code = MDIFF) YES STAIN ACCEPTABILITY (test code = STN ACCEPTABLE) TOTAL CELLS COUNTED (test code = TCC) #CELLS SEGMENTED NEUTROPHILS (test code = SEG) % 39-69 LYMPHOCYTE (test code = LYMPH) % 25-55 MONOCYTE (test code = MON) % 0-10 EOSINOPHIL (test code = EOS) % 0.0-5.0 CABOT RINGS (test code = CAB) MORPHOLOGY COMMENT (test code = MOC) PLATELET ESTIMATE (test code = PLTEST) PLATELET MORPHOLOGY (test code = PLTMORPH) CBC W/MANUAL [id number] 06:13:00* Test Item Value Reference Range Interpretation Comments WHITE BLOOD CELL (test code = WBC) 11.2 K/mm3 4.5-12.5 N RED BLOOD CELL (test code = RBC) 2.81 mill/mm3 4.0-5.8 L HEMOGLOBIN (test code = HGB) 8.3 gram/dL 13.0-17.5 L HEMATOCRIT (test code = HCT) 26.0 % 42.0-52.0 L MEAN CELL VOLUME (test code = MCV) 92.5 fL 80-98 N MEAN CELL HGB (test code = MCH) 29.5 picogram 27.0-33.0 N MEAN CELL HGB CONCETRATION (test code = MCHC) 31.9 gram/dL 33.0-36. 0 L RED CELL DISTRIBUTION WIDTH (test code = RDW) 14.2 % 11.6-16. 2 N RED CELL DISTRIBUTION WIDTH SD (test code = RDW-SD) 48.0 fL 37 .0-51.0 N PLATELET COUNT (test code = PLT) 358 K/mm3 150-450 N MEAN PLATELET VOLUME (test code = MPV) 8.9 fL 6.7-11.0 N IMMATURE GRANULOCYTE % (test code = IG%) 5.8 % 0.0-5.0 H "The appearance of immature granulocytes (myelocytes,pro-myelocytes, meta-myelocytes) in the peripheral blood ofnon- individuals can indicate a response toinfection, inflammation, or other stimulus to the bonemarrow" NUCLEATED RBC % (test code = NRBC%) 0.0 % 0-0 N NEUTROPHIL # (test code = NT#) 8.08 K/mm3 1.8-7.7 H IMMATURE GRANULOCYTE # (test code = IG#) 0.65 x10 3/uL 0-0.03 H LYMPHOCYTE # (test code = LY#) 1.65 K/mm3 1.0-5.0 N MONOCYTE # (test code = MO#) 0.64 K/mm3 0-0.8 N EOSINOPHIL # (test code = EO#) 0.12 K/mm3 0.0-0.5 N BASOPHIL # (test code = BA#) 0.08 K/mm3 0.0-0.2 N NUCLEATED RBC # (test code = NRBC#) 0.00 K/mm3 0.0-0.1 N MANUAL DIFF REQUIRED (test code = MDIFF) YES STAIN ACCEPTABILITY (test code = STN ACCEPTABLE) TOTAL CELLS COUNTED (test code = TCC) #CELLS SEGMENTED NEUTROPHILS (test code = SEG) % 39-69 LYMPHOCYTE (test code = LYMPH) % 25-55 MONOCYTE (test code = MON) % 0-10 EOSINOPHIL (test code = EOS) % 0.0-5.0 CABOT RINGS (test code = CAB) MORPHOLOGY COMMENT (test code = MOC) PLATELET ESTIMATE (test code = PLTEST) PLATELET MORPHOLOGY (test code = PLTMORPH) CBC W/MANUAL [id number] 06:13:00* Test Item Value Reference Range Interpretation Comments WHITE BLOOD CELL (test code = WBC) 11.2 K/mm3 4.5-12.5 N RED BLOOD CELL (test code = RBC) 2.81 mill/mm3 4.0-5.8 L HEMOGLOBIN (test code = HGB) 8.3 gram/dL 13.0-17.5 L HEMATOCRIT (test code = HCT) 26.0 % 42.0-52.0 L MEAN CELL VOLUME (test code = MCV) 92.5 fL 80-98 N MEAN CELL HGB (test code = MCH) 29.5 picogram 27.0-33.0 N MEAN CELL HGB CONCETRATION (test code = MCHC) 31.9 gram/dL 33.0-36. 0 L RED CELL DISTRIBUTION WIDTH (test code = RDW) 14.2 % 11.6-16. 2 N RED CELL DISTRIBUTION WIDTH SD (test code = RDW-SD) 48.0 fL 37 .0-51.0 N PLATELET COUNT (test code = PLT) 358 K/mm3 150-450 N MEAN PLATELET VOLUME (test code = MPV) 8.9 fL 6.7-11.0 N IMMATURE GRANULOCYTE % (test code = IG%) 5.8 % 0.0-5.0 H "The appearance of immature granulocytes (myelocytes,pro-myelocytes, meta-myelocytes) in the peripheral blood ofnon- individuals can indicate a response toinfection, inflammation, or other stimulus to the bonemarrow" NUCLEATED RBC % (test code = NRBC%) 0.0 % 0-0 N NEUTROPHIL # (test code = NT#) 8.08 K/mm3 1.8-7.7 H IMMATURE GRANULOCYTE # (test code = IG#) 0.65 x10 3/uL 0-0.03 H LYMPHOCYTE # (test code = LY#) 1.65 K/mm3 1.0-5.0 N MONOCYTE # (test code = MO#) 0.64 K/mm3 0-0.8 N EOSINOPHIL # (test code = EO#) 0.12 K/mm3 0.0-0.5 N BASOPHIL # (test code = BA#) 0.08 K/mm3 0.0-0.2 N NUCLEATED RBC # (test code = NRBC#) 0.00 K/mm3 0.0-0.1 N MANUAL DIFF REQUIRED (test code = MDIFF) YES STAIN ACCEPTABILITY (test code = STN ACCEPTABLE) TOTAL CELLS COUNTED (test code = TCC) #CELLS SEGMENTED NEUTROPHILS (test code = SEG) % 39-69 LYMPHOCYTE (test code = LYMPH) % 25-55 MONOCYTE (test code = MON) % 0-10 EOSINOPHIL (test code = EOS) % 0.0-5.0 MORPHOLOGY COMMENT (test code = MOC) PLATELET ESTIMATE (test code = PLTEST) PLATELET MORPHOLOGY (test code = PLTMORPH) CBC W/MANUAL [id number] 06:13:00* Test Item Value Reference Range Interpretation Comments WHITE BLOOD CELL (test code = WBC) 11.2 K/mm3 4.5-12.5 N RED BLOOD CELL (test code = RBC) 2.81 mill/mm3 4.0-5.8 L HEMOGLOBIN (test code = HGB) 8.3 gram/dL 13.0-17.5 L HEMATOCRIT (test code = HCT) 26.0 % 42.0-52.0 L MEAN CELL VOLUME (test code = MCV) 92.5 fL 80-98 N MEAN CELL HGB (test code = MCH) 29.5 picogram 27.0-33.0 N MEAN CELL HGB CONCETRATION (test code = MCHC) 31.9 gram/dL 33.0-36. 0 L RED CELL DISTRIBUTION WIDTH (test code = RDW) 14.2 % 11.6-16. 2 N RED CELL DISTRIBUTION WIDTH SD (test code = RDW-SD) 48.0 fL 37 .0-51.0 N PLATELET COUNT (test code = PLT) 358 K/mm3 150-450 N MEAN PLATELET VOLUME (test code = MPV) 8.9 fL 6.7-11.0 N IMMATURE GRANULOCYTE % (test code = IG%) 5.8 % 0.0-5.0 H "The appearance of immature granulocytes (myelocytes,pro-myelocytes, meta-myelocytes) in the peripheral blood ofnon- individuals can indicate a response toinfection, inflammation, or other stimulus to the bonemarrow" NUCLEATED RBC % (test code = NRBC%) 0.0 % 0-0 N NEUTROPHIL # (test code = NT#) 8.08 K/mm3 1.8-7.7 H IMMATURE GRANULOCYTE # (test code = IG#) 0.65 x10 3/uL 0-0.03 H LYMPHOCYTE # (test code = LY#) 1.65 K/mm3 1.0-5.0 N MONOCYTE # (test code = MO#) 0.64 K/mm3 0-0.8 N EOSINOPHIL # (test code = EO#) 0.12 K/mm3 0.0-0.5 N BASOPHIL # (test code = BA#) 0.08 K/mm3 0.0-0.2 N NUCLEATED RBC # (test code = NRBC#) 0.00 K/mm3 0.0-0.1 N MANUAL DIFF REQUIRED (test code = MDIFF) YES STAIN ACCEPTABILITY (test code = STN ACCEPTABLE) TOTAL CELLS COUNTED (test code = TCC) #CELLS SEGMENTED NEUTROPHILS (test code = SEG) % 39-69 LYMPHOCYTE (test code = LYMPH) % 25-55 MONOCYTE (test code = MON) % 0-10 MORPHOLOGY COMMENT (test code = MOC) PLATELET ESTIMATE (test code = PLTEST) PLATELET MORPHOLOGY (test code = PLTMORPH) CBC W/MANUAL [id number] 06:13:00* Test Item Value Reference Range Interpretation Comments WHITE BLOOD CELL (test code = WBC) 11.2 K/mm3 4.5-12.5 N RED BLOOD CELL (test code = RBC) 2.81 mill/mm3 4.0-5.8 L HEMOGLOBIN (test code = HGB) 8.3 gram/dL 13.0-17.5 L HEMATOCRIT (test code = HCT) 26.0 % 42.0-52.0 L MEAN CELL VOLUME (test code = MCV) 92.5 fL 80-98 N MEAN CELL HGB (test code = MCH) 29.5 picogram 27.0-33.0 N MEAN CELL HGB CONCETRATION (test code = MCHC) 31.9 gram/dL 33.0-36. 0 L RED CELL DISTRIBUTION WIDTH (test code = RDW) 14.2 % 11.6-16. 2 N RED CELL DISTRIBUTION WIDTH SD (test code = RDW-SD) 48.0 fL 37 .0-51.0 N PLATELET COUNT (test code = PLT) 358 K/mm3 150-450 N MEAN PLATELET VOLUME (test code = MPV) 8.9 fL 6.7-11.0 N IMMATURE GRANULOCYTE % (test code = IG%) 5.8 % 0.0-5.0 H "The appearance of immature granulocytes (myelocytes,pro-myelocytes, meta-myelocytes) in the peripheral blood ofnon- individuals can indicate a response toinfection, inflammation, or other stimulus to the bonemarrow" NUCLEATED RBC % (test code = NRBC%) 0.0 % 0-0 N NEUTROPHIL # (test code = NT#) 8.08 K/mm3 1.8-7.7 H IMMATURE GRANULOCYTE # (test code = IG#) 0.65 x10 3/uL 0-0.03 H LYMPHOCYTE # (test code = LY#) 1.65 K/mm3 1.0-5.0 N MONOCYTE # (test code = MO#) 0.64 K/mm3 0-0.8 N EOSINOPHIL # (test code = EO#) 0.12 K/mm3 0.0-0.5 N BASOPHIL # (test code = BA#) 0.08 K/mm3 0.0-0.2 N NUCLEATED RBC # (test code = NRBC#) 0.00 K/mm3 0.0-0.1 N MANUAL DIFF REQUIRED (test code = MDIFF) YES STAIN ACCEPTABILITY (test code = STN ACCEPTABLE) TOTAL CELLS COUNTED (test code = TCC) #CELLS SEGMENTED NEUTROPHILS (test code = SEG) % 39-69 LYMPHOCYTE (test code = LYMPH) % 25-55 MONOCYTE (test code = MON) % 0-10 EOSINOPHIL (test code = EOS) % 0.0-5.0 CABOT RINGS (test code = CAB) MORPHOLOGY COMMENT (test code = MOC) PLATELET ESTIMATE (test code = PLTEST) PLATELET MORPHOLOGY (test code = PLTMORPH) URINALYSIS [id number] 21:36:00* Test Item Value Reference Range Interpretation Comments UA COLOR (test code = COLU) Dark-Red YELLOW UA APPEARANCE (test code = APPU) TURBID CLEAR A UA GLUCOSE DIPSTICK (test code = DGLUU) NEGATIVE mg/dL NEGATIVE UA BILIRUBIN DIPSTICK (test code = BILU) NEGATIVE mg/dL NEGATIVE UA KETONE DIPSTICK (test code = KETU) NEGATIVE mg/dL NEGATIVE UA SPECIFIC GRAVITY (test code = SGU) 1.022 1.001-1.035 UA BLOOD DIPSTICK (test code = SUSI) >1.0 mg/dL NEGATIVE UA PH DIPSTICK (test code = MELINDA) 6.0 5.0-8.0 UA PROTEIN DIPSTICK (test code = PROU) 50 (1+) mg/dL NEGATIVE A UA UROBILINIOGEN DIPSTICK (test code = URO) Normal mg/dL NEGATIVE UA NITRITE DIPSTICK (test code = MARIAMA) NEGATIVE NEGATIVE UA LEUKOCYTE ESTERASE W REFLEX (test code = LEUUR) 75 Rasheed/uL (1+) Rasheed/uL NEGATIVE A UA WBC (test code = WBCU) 3-5 per HPF 0-5 UA RBC (test code = RBCU) TNTC #/HPF 0-5 UA EPITHELIAL CELLS (test code = EPIU) None seen per HPF FEW UA BACTERIA (test code = BACU) FEW #/HPF NONE Urine Source? Clean CatchURINALYSIS [id number] 21:35:00* Test Item Value Reference Range Interpretation Comments UA COLOR (test code = COLU) Dark-Red YELLOW UA APPEARANCE (test code = APPU) TURBID CLEAR A UA GLUCOSE DIPSTICK (test code = DGLUU) NEGATIVE mg/dL NEGATIVE UA BILIRUBIN DIPSTICK (test code = BILU) NEGATIVE mg/dL NEGATIVE UA KETONE DIPSTICK (test code = KETU) NEGATIVE mg/dL NEGATIVE UA SPECIFIC GRAVITY (test code = SGU) 1.022 1.001-1.035 UA BLOOD DIPSTICK (test code = SUSI) >1.0 mg/dL NEGATIVE UA PH DIPSTICK (test code = MELINDA) 6.0 5.0-8.0 UA PROTEIN DIPSTICK (test code = PROU) 50 (1+) mg/dL NEGATIVE A UA UROBILINIOGEN DIPSTICK (test code = URO) Normal mg/dL NEGATIVE UA NITRITE DIPSTICK (test code = MARIAMA) NEGATIVE NEGATIVE UA LEUKOCYTE ESTERASE W REFLEX (test code = LEUUR) 75 Rasheed/uL (1+) Rasheed/uL NEGATIVE A UA WBC (test code = WBCU) per HPF 0-5 UA RBC (test code = RBCU) per HPF 0-5 UA EPITHELIAL CELLS (test code = EPIU) per HPF Few UA BACTERIA (test code = BACU) per HPF NONE Urine Source? Clean CatchCBC W/AUTO [id number] 20:48:00* Test Item Value Reference Range Interpretation Comments WHITE BLOOD CELL (test code = WBC) 12.6 K/mm3 4.5-12.5 H RED BLOOD CELL (test code = RBC) 2.77 mill/mm3 4.0-5.8 L HEMOGLOBIN (test code = HGB) 8.1 gram/dL 13.0-17.5 L HEMATOCRIT (test code = HCT) 26.1 % 42.0-52.0 L MEAN CELL VOLUME (test code = MCV) 94.2 fL 80-98 N MEAN CELL HGB (test code = MCH) 29.2 picogram 27.0-33.0 N MEAN CELL HGB CONCETRATION (test code = MCHC) 31.0 gram/dL 33.0-36. 0 L RED CELL DISTRIBUTION WIDTH (test code = RDW) 14.2 % 11.6-16. 2 N RED CELL DISTRIBUTION WIDTH SD (test code = RDW-SD) 47.9 fL 37 .0-51.0 N PLATELET COUNT (test code = PLT) 318 K/mm3 150-450 N MEAN PLATELET VOLUME (test code = MPV) 8.6 fL 6.7-11.0 N NEUTROPHIL % (test code = NT%) 76.1 % 39.0-69.0 H IMMATURE GRANULOCYTE % (test code = IG%) 4.7 % 0.0-5.0 N LYMPHOCYTE % (test code = LY%) 12.7 % 25.0-55.0 L MONOCYTE % (test code = MO%) 5.1 % 0.0-10.0 N EOSINOPHIL % (test code = EO%) 0.6 % 0.0-5.0 N BASOPHIL % (test code = BA%) 0.8 % 0.0-1.0 N NUCLEATED RBC % (test code = NRBC%) 0.0 % 0-0 N NEUTROPHIL # (test code = NT#) 9.63 K/mm3 1.8-7.7 H IMMATURE GRANULOCYTE # (test code = IG#) 0.60 x10 3/uL 0-0.03 H LYMPHOCYTE # (test code = LY#) 1.60 K/mm3 1.0-5.0 N MONOCYTE # (test code = MO#) 0.64 K/mm3 0-0.8 N EOSINOPHIL # (test code = EO#) 0.07 K/mm3 0.0-0.5 N BASOPHIL # (test code = BA#) 0.10 K/mm3 0.0-0.2 N NUCLEATED RBC # (test code = NRBC#) 0.00 K/mm3 0.0-0.1 N MANUAL DIFF REQUIRED (test code = MDIFF) NO [id number] 20:28:00* Test Item Value Reference Range Interpretation Comments GLUBED (test code = GLUBED) 204 mg/dL 74-106 H Performed by certified photogravure press operator at [facility] CBC W/AUTO [id number] 14:39:00* Test Item Value Reference Range Interpretation Comments WHITE BLOOD CELL (test code = WBC) 10.8 K/mm3 4.5-12.5 N RED BLOOD CELL (test code = RBC) 2.79 mill/mm3 4.0-5.8 L HEMOGLOBIN (test code = HGB) 8.2 gram/dL 13.0-17.5 L HEMATOCRIT (test code = HCT) 25.9 % 42.0-52.0 L MEAN CELL VOLUME (test code = MCV) 92.8 fL 80-98 N MEAN CELL HGB (test code = MCH) 29.4 picogram 27.0-33.0 N MEAN CELL HGB CONCETRATION (test code = MCHC) 31.7 gram/dL 33.0-36. 0 L RED CELL DISTRIBUTION WIDTH (test code = RDW) 14.1 % 11.6-16. 2 N RED CELL DISTRIBUTION WIDTH SD (test code = RDW-SD) 47.8 fL 37 .0-51.0 N PLATELET COUNT (test code = PLT) 319 K/mm3 150-450 N MEAN PLATELET VOLUME (test code = MPV) 8.4 fL 6.7-11.0 N NEUTROPHIL % (test code = NT%) 75.8 % 39.0-69.0 H IMMATURE GRANULOCYTE % (test code = IG%) 4.4 % 0.0-5.0 N LYMPHOCYTE % (test code = LY%) 12.5 % 25.0-55.0 L MONOCYTE % (test code = MO%) 5.8 % 0.0-10.0 N EOSINOPHIL % (test code = EO%) 0.8 % 0.0-5.0 N BASOPHIL % (test code = BA%) 0.7 % 0.0-1.0 N NUCLEATED RBC % (test code = NRBC%) 0.0 % 0-0 N NEUTROPHIL # (test code = NT#) 8.16 K/mm3 1.8-7.7 H IMMATURE GRANULOCYTE # (test code = IG#) 0.47 x10 3/uL 0-0.03 H LYMPHOCYTE # (test code = LY#) 1.34 K/mm3 1.0-5.0 N MONOCYTE # (test code = MO#) 0.62 K/mm3 0-0.8 N EOSINOPHIL # (test code = EO#) 0.09 K/mm3 0.0-0.5 N BASOPHIL # (test code = BA#) 0.08 K/mm3 0.0-0.2 N NUCLEATED RBC # (test code = NRBC#) 0.00 K/mm3 0.0-0.1 N [id number] 14:17:00* Test Item Value Reference Range Interpretation Comments GLUBED (test code = GLUBED) 147 mg/dL 74-106 H Performed by certified photogravure press operator at [facility] CBC W/MANUAL [id number] 06:47:00* Test Item Value Reference Range Interpretation Comments WHITE BLOOD CELL (test code = WBC) 8.2 K/mm3 4.5-12.5 N RED BLOOD CELL (test code = RBC) 2.81 mill/mm3 4.0-5.8 L HEMOGLOBIN (test code = HGB) 8.1 gram/dL 13.0-17.5 L HEMATOCRIT (test code = HCT) 25.7 % 42.0-52.0 L MEAN CELL VOLUME (test code = MCV) 91.5 fL 80-98 N MEAN CELL HGB (test code = MCH) 28.8 picogram 27.0-33.0 N MEAN CELL HGB CONCETRATION (test code = MCHC) 31.5 gram/dL 33.0-36. 0 L RED CELL DISTRIBUTION WIDTH (test code = RDW) 14.3 % 11.6-16. 2 N RED CELL DISTRIBUTION WIDTH SD (test code = RDW-SD) 47.8 fL 37 .0-51.0 N PLATELET COUNT (test code = PLT) 355 K/mm3 150-450 N MEAN PLATELET VOLUME (test code = MPV) 9.0 fL 6.7-11.0 N IMMATURE GRANULOCYTE % (test code = IG%) 5.9 % 0.0-5.0 H "The appearance of immature granulocytes (myelocytes,pro-myelocytes, meta-myelocytes) in the peripheral blood ofnon- individuals can indicate a response toinfection, inflammation, or other stimulus to the bonemarrow" NUCLEATED RBC % (test code = NRBC%) 0.0 % 0-0 N NEUTROPHIL # (test code = NT#) 5.70 K/mm3 1.8-7.7 N IMMATURE GRANULOCYTE # (test code = IG#) 0.48 x10 3/uL 0-0.03 H LYMPHOCYTE # (test code = LY#) 1.38 K/mm3 1.0-5.0 N MONOCYTE # (test code = MO#) 0.48 K/mm3 0-0.8 N EOSINOPHIL # (test code = EO#) 0.05 K/mm3 0.0-0.5 N BASOPHIL # (test code = BA#) 0.06 K/mm3 0.0-0.2 N NUCLEATED RBC # (test code = NRBC#) 0.00 K/mm3 0.0-0.1 N MANUAL DIFF REQUIRED (test code = MDIFF) YES STAIN ACCEPTABILITY (test code = STN ACCEPTABLE) STAIN ACCEPTABLE TOTAL CELLS COUNTED (test code = TCC) 115 #CELLS SEGMENTED NEUTROPHILS (test code = SEG) 78.3 % 39-69 H BAND NEUTROPHIL (test code = BAND) 0 % 0-10 N LYMPHOCYTE (test code = LYMPH) 15.6 % 25-55 L REACTIVE LYMPH (test code = RELYMPH) 0 % MONOCYTE (test code = MON) 2.6 % 0-10 N EOSINOPHIL (test code = EOS) 0.9 % 0.0-5.0 N BASOPHIL (test code = BASO) 0.9 % 0-1.0 N METAMYELOCYTE (test code = META) 0 % 0-0 N MYELOCYTE (test code = MYELO) 1.7 % 0.0-0.0 H PROMYELOCYTE (test code = PROM) 0 % 0-0 N POIKILOCYTOSIS (test code = POIK) 1+ MORPHOLOGY COMMENT (test code = MOC) NORMAL PLATELET ESTIMATE (test code = PLTEST) ADEQUATE PLATELET MORPHOLOGY (test code = PLTMORPH) NORMAL IMMATURE FORMS (test code = IMMAT) 0 % 0-0 N CBC W/MANUAL [id number] 05:39:00* Test Item Value Reference Range Interpretation Comments WHITE BLOOD CELL (test code = WBC) 8.2 K/mm3 4.5-12.5 N RED BLOOD CELL (test code = RBC) 2.81 mill/mm3 4.0-5.8 L HEMOGLOBIN (test code = HGB) 8.1 gram/dL 13.0-17.5 L HEMATOCRIT (test code = HCT) 25.7 % 42.0-52.0 L MEAN CELL VOLUME (test code = MCV) 91.5 fL 80-98 N MEAN CELL HGB (test code = MCH) 28.8 picogram 27.0-33.0 N MEAN CELL HGB CONCETRATION (test code = MCHC) 31.5 gram/dL 33.0-36. 0 L RED CELL DISTRIBUTION WIDTH (test code = RDW) 14.3 % 11.6-16. 2 N RED CELL DISTRIBUTION WIDTH SD (test code = RDW-SD) 47.8 fL 37 .0-51.0 N PLATELET COUNT (test code = PLT) 355 K/mm3 150-450 N MEAN PLATELET VOLUME (test code = MPV) 9.0 fL 6.7-11.0 N IMMATURE GRANULOCYTE % (test code = IG%) 5.9 % 0.0-5.0 H "The appearance of immature granulocytes (myelocytes,pro-myelocytes, meta-myelocytes) in the peripheral blood ofnon- individuals can indicate a response toinfection, inflammation, or other stimulus to the bonemarrow" NUCLEATED RBC % (test code = NRBC%) 0.0 % 0-0 N NEUTROPHIL # (test code = NT#) 5.70 K/mm3 1.8-7.7 N IMMATURE GRANULOCYTE # (test code = IG#) 0.48 x10 3/uL 0-0.03 H LYMPHOCYTE # (test code = LY#) 1.38 K/mm3 1.0-5.0 N MONOCYTE # (test code = MO#) 0.48 K/mm3 0-0.8 N EOSINOPHIL # (test code = EO#) 0.05 K/mm3 0.0-0.5 N BASOPHIL # (test code = BA#) 0.06 K/mm3 0.0-0.2 N NUCLEATED RBC # (test code = NRBC#) 0.00 K/mm3 0.0-0.1 N MANUAL DIFF REQUIRED (test code = MDIFF) YES STAIN ACCEPTABILITY (test code = STN ACCEPTABLE) TOTAL CELLS COUNTED (test code = TCC) #CELLS SEGMENTED NEUTROPHILS (test code = SEG) % 39-69 LYMPHOCYTE (test code = LYMPH) % 25-55 MONOCYTE (test code = MON) % 0-10 EOSINOPHIL (test code = EOS) % 0.0-5.0 CABOT RINGS (test code = CAB) MORPHOLOGY COMMENT (test code = MOC) PLATELET ESTIMATE (test code = PLTEST) PLATELET MORPHOLOGY (test code = PLTMORPH) CBC W/MANUAL [id number] 05:39:00* Test Item Value Reference Range Interpretation Comments WHITE BLOOD CELL (test code = WBC) 8.2 K/mm3 4.5-12.5 N RED BLOOD CELL (test code = RBC) 2.81 mill/mm3 4.0-5.8 L HEMOGLOBIN (test code = HGB) 8.1 gram/dL 13.0-17.5 L HEMATOCRIT (test code = HCT) 25.7 % 42.0-52.0 L MEAN CELL VOLUME (test code = MCV) 91.5 fL 80-98 N MEAN CELL HGB (test code = MCH) 28.8 picogram 27.0-33.0 N MEAN CELL HGB CONCETRATION (test code = MCHC) 31.5 gram/dL 33.0-36. 0 L RED CELL DISTRIBUTION WIDTH (test code = RDW) 14.3 % 11.6-16. 2 N RED CELL DISTRIBUTION WIDTH SD (test code = RDW-SD) 47.8 fL 37 .0-51.0 N PLATELET COUNT (test code = PLT) 355 K/mm3 150-450 N MEAN PLATELET VOLUME (test code = MPV) 9.0 fL 6.7-11.0 N IMMATURE GRANULOCYTE % (test code = IG%) 5.9 % 0.0-5.0 H "The appearance of immature granulocytes (myelocytes,pro-myelocytes, meta-myelocytes) in the peripheral blood ofnon- individuals can indicate a response toinfection, inflammation, or other stimulus to the bonemarrow" NUCLEATED RBC % (test code = NRBC%) 0.0 % 0-0 N NEUTROPHIL # (test code = NT#) 5.70 K/mm3 1.8-7.7 N IMMATURE GRANULOCYTE # (test code = IG#) 0.48 x10 3/uL 0-0.03 H LYMPHOCYTE # (test code = LY#) 1.38 K/mm3 1.0-5.0 N MONOCYTE # (test code = MO#) 0.48 K/mm3 0-0.8 N EOSINOPHIL # (test code = EO#) 0.05 K/mm3 0.0-0.5 N BASOPHIL # (test code = BA#) 0.06 K/mm3 0.0-0.2 N NUCLEATED RBC # (test code = NRBC#) 0.00 K/mm3 0.0-0.1 N MANUAL DIFF REQUIRED (test code = MDIFF) YES STAIN ACCEPTABILITY (test code = STN ACCEPTABLE) TOTAL CELLS COUNTED (test code = TCC) #CELLS SEGMENTED NEUTROPHILS (test code = SEG) % 39-69 LYMPHOCYTE (test code = LYMPH) % 25-55 MONOCYTE (test code = MON) % 0-10 EOSINOPHIL (test code = EOS) % 0.0-5.0 MORPHOLOGY COMMENT (test code = MOC) PLATELET ESTIMATE (test code = PLTEST) PLATELET MORPHOLOGY (test code = PLTMORPH) CBC W/MANUAL [id number] 05:39:00* Test Item Value Reference Range Interpretation Comments WHITE BLOOD CELL (test code = WBC) 8.2 K/mm3 4.5-12.5 N RED BLOOD CELL (test code = RBC) 2.81 mill/mm3 4.0-5.8 L HEMOGLOBIN (test code = HGB) 8.1 gram/dL 13.0-17.5 L HEMATOCRIT (test code = HCT) 25.7 % 42.0-52.0 L MEAN CELL VOLUME (test code = MCV) 91.5 fL 80-98 N MEAN CELL HGB (test code = MCH) 28.8 picogram 27.0-33.0 N MEAN CELL HGB CONCETRATION (test code = MCHC) 31.5 gram/dL 33.0-36. 0 L RED CELL DISTRIBUTION WIDTH (test code = RDW) 14.3 % 11.6-16. 2 N RED CELL DISTRIBUTION WIDTH SD (test code = RDW-SD) 47.8 fL 37 .0-51.0 N PLATELET COUNT (test code = PLT) 355 K/mm3 150-450 N MEAN PLATELET VOLUME (test code = MPV) 9.0 fL 6.7-11.0 N IMMATURE GRANULOCYTE % (test code = IG%) 5.9 % 0.0-5.0 H "The appearance of immature granulocytes (myelocytes,pro-myelocytes, meta-myelocytes) in the peripheral blood ofnon- individuals can indicate a response toinfection, inflammation, or other stimulus to the bonemarrow" NUCLEATED RBC % (test code = NRBC%) 0.0 % 0-0 N NEUTROPHIL # (test code = NT#) 5.70 K/mm3 1.8-7.7 N IMMATURE GRANULOCYTE # (test code = IG#) 0.48 x10 3/uL 0-0.03 H LYMPHOCYTE # (test code = LY#) 1.38 K/mm3 1.0-5.0 N MONOCYTE # (test code = MO#) 0.48 K/mm3 0-0.8 N EOSINOPHIL # (test code = EO#) 0.05 K/mm3 0.0-0.5 N BASOPHIL # (test code = BA#) 0.06 K/mm3 0.0-0.2 N NUCLEATED RBC # (test code = NRBC#) 0.00 K/mm3 0.0-0.1 N MANUAL DIFF REQUIRED (test code = MDIFF) YES STAIN ACCEPTABILITY (test code = STN ACCEPTABLE) TOTAL CELLS COUNTED (test code = TCC) #CELLS SEGMENTED NEUTROPHILS (test code = SEG) % 39-69 LYMPHOCYTE (test code = LYMPH) % 25-55 MONOCYTE (test code = MON) % 0-10 MORPHOLOGY COMMENT (test code = MOC) PLATELET ESTIMATE (test code = PLTEST) PLATELET MORPHOLOGY (test code = PLTMORPH) CBC W/MANUAL [id number] 05:38:00* Test Item Value Reference Range Interpretation Comments WHITE BLOOD CELL (test code = WBC) 8.2 K/mm3 4.5-12.5 N RED BLOOD CELL (test code = RBC) 2.81 mill/mm3 4.0-5.8 L HEMOGLOBIN (test code = HGB) 8.1 gram/dL 13.0-17.5 L HEMATOCRIT (test code = HCT) 25.7 % 42.0-52.0 L MEAN CELL VOLUME (test code = MCV) 91.5 fL 80-98 N MEAN CELL HGB (test code = MCH) 28.8 picogram 27.0-33.0 N MEAN CELL HGB CONCETRATION (test code = MCHC) 31.5 gram/dL 33.0-36. 0 L RED CELL DISTRIBUTION WIDTH (test code = RDW) 14.3 % 11.6-16. 2 N RED CELL DISTRIBUTION WIDTH SD (test code = RDW-SD) 47.8 fL 37 .0-51.0 N PLATELET COUNT (test code = PLT) 355 K/mm3 150-450 N MEAN PLATELET VOLUME (test code = MPV) 9.0 fL 6.7-11.0 N IMMATURE GRANULOCYTE % (test code = IG%) 5.9 % 0.0-5.0 H "The appearance of immature granulocytes (myelocytes,pro-myelocytes, meta-myelocytes) in the peripheral blood ofnon- individuals can indicate a response toinfection, inflammation, or other stimulus to the bonemarrow" NUCLEATED RBC % (test code = NRBC%) 0.0 % 0-0 N NEUTROPHIL # (test code = NT#) 5.70 K/mm3 1.8-7.7 N IMMATURE GRANULOCYTE # (test code = IG#) 0.48 x10 3/uL 0-0.03 H LYMPHOCYTE # (test code = LY#) 1.38 K/mm3 1.0-5.0 N MONOCYTE # (test code = MO#) 0.48 K/mm3 0-0.8 N EOSINOPHIL # (test code = EO#) 0.05 K/mm3 0.0-0.5 N BASOPHIL # (test code = BA#) 0.06 K/mm3 0.0-0.2 N NUCLEATED RBC # (test code = NRBC#) 0.00 K/mm3 0.0-0.1 N MANUAL DIFF REQUIRED (test code = MDIFF) YES STAIN ACCEPTABILITY (test code = STN ACCEPTABLE) TOTAL CELLS COUNTED (test code = TCC) #CELLS SEGMENTED NEUTROPHILS (test code = SEG) % 39-69 LYMPHOCYTE (test code = LYMPH) % 25-55 MONOCYTE (test code = MON) % 0-10 EOSINOPHIL (test code = EOS) % 0.0-5.0 CABOT RINGS (test code = CAB) MORPHOLOGY COMMENT (test code = MOC) PLATELET ESTIMATE (test code = PLTEST) PLATELET MORPHOLOGY (test code = PLTMORPH) BASIC METABOLIC [id number] 05:19:00* Test Item Value Reference Range Interpretation Comments SODIUM (test code = NA) 144 mmol/L 136-145 N POTASSIUM (test code = K) 3.6 mmol/L 3.5-5.1 N CHLORIDE (test code = CL) 111.0 mmol/L 98-107 H CARBON DIOXIDE (test code = CO2) 26.0 mmol/L 21-32 N ANION GAP (test code = GAP) 10.6 10-20 N GLUCOSE (test code = GLU) 162 mg/dL 74-106 H BLOOD UREA NITROGEN (test code = BUN) 21 mg/dL 7-18 H GLOMERULAR FILTRATION RATE (test code = GFR) > 60 mL/min >=60 Estimated GFR by using Modified MDRD formula.Chronic kidney disease is defined as either kidney damageor GFR <60 mL/min/1.73 m2 for >3 months. CREATININE (test code = CREAT) 0.80 mg/dL 0.7-1.3 N BUN/CREATININE RATIO (test code = BUN/CREA) 25.5 10-20 H CALCIUM (test code = CA) 8.4 mg/dL 8.5-10.1 L BASIC METABOLIC [id number] 05:14:00* Test Item Value Reference Range Interpretation Comments SODIUM (test code = NA) 144 mmol/L 136-145 N POTASSIUM (test code = K) 3.6 mmol/L 3.5-5.1 N CHLORIDE (test code = CL) 111.0 mmol/L 98-107 H CARBON DIOXIDE (test code = CO2) mmol/L 21-32 ANION GAP (test code = GAP) 10-20 GLUCOSE (test code = GLU) mg/dL 74-106 BLOOD UREA NITROGEN (test code = BUN) mg/dL 7-18 GLOMERULAR FILTRATION RATE (test code = GFR) mL/min >=60 CREATININE (test code = CREAT) mg/dL 0.7-1.3 BUN/CREATININE RATIO (test code = BUN/CREA) 10-20 CALCIUM (test code = CA) 8.4 mg/dL 8.5-10.1 L HGB [id number] 12:52:00* Test Item Value Reference Range Interpretation Comments HEMOGLOBIN (test code = HGB) 8.8 gram/dL 13.0-17.5 L HEMATOCRIT (test code = HCT) 29.7 % 42.0-52.0 L CBC W/AUTO [id number] 08:40:00* Test Item Value Reference Range Interpretation Comments WHITE BLOOD CELL (test code = WBC) 10.3 K/mm3 4.5-12.5 N RED BLOOD CELL (test code = RBC) 3.01 mill/mm3 4.0-5.8 L HEMOGLOBIN (test code = HGB) 8.8 gram/dL 13.0-17.5 L HEMATOCRIT (test code = HCT) 28.1 % 42.0-52.0 L MEAN CELL VOLUME (test code = MCV) 93.4 fL 80-98 N MEAN CELL HGB (test code = MCH) 29.2 picogram 27.0-33.0 N MEAN CELL HGB CONCETRATION (test code = MCHC) 31.3 gram/dL 33.0-36. 0 L RED CELL DISTRIBUTION WIDTH (test code = RDW) 14.0 % 11.6-16. 2 N RED CELL DISTRIBUTION WIDTH SD (test code = RDW-SD) 48.1 fL 37 .0-51.0 N PLATELET COUNT (test code = PLT) 364 K/mm3 150-450 MEAN PLATELET VOLUME (test code = MPV) 8.5 fL 6.7-11.0 N NEUTROPHIL % (test code = NT%) 75.4 % 39.0-69.0 H IMMATURE GRANULOCYTE % (test code = IG%) 3.6 % 0.0-5.0 N LYMPHOCYTE % (test code = LY%) 14.6 % 25.0-55.0 L MONOCYTE % (test code = MO%) 5.3 % 0.0-10.0 N EOSINOPHIL % (test code = EO%) 0.3 % 0.0-5.0 N BASOPHIL % (test code = BA%) 0.8 % 0.0-1.0 N NUCLEATED RBC % (test code = NRBC%) 0.0 % 0-0 N NEUTROPHIL # (test code = NT#) 7.75 K/mm3 1.8-7.7 H IMMATURE GRANULOCYTE # (test code = IG#) 0.37 x10 3/uL 0-0.03 H LYMPHOCYTE # (test code = LY#) 1.50 K/mm3 1.0-5.0 N MONOCYTE # (test code = MO#) 0.54 K/mm3 0-0.8 N EOSINOPHIL # (test code = EO#) 0.03 K/mm3 0.0-0.5 N BASOPHIL # (test code = BA#) 0.08 K/mm3 0.0-0.2 N NUCLEATED RBC # (test code = NRBC#) 0.00 K/mm3 0.0-0.1 N MANUAL DIFF REQUIRED (test code = MDIFF) NO BASIC METABOLIC [id number] 08:38:00* Test Item Value Reference Range Interpretation Comments SODIUM (test code = NA) 143 mmol/L 136-145 N POTASSIUM (test code = K) 3.9 mmol/L 3.5-5.1 N CHLORIDE (test code = CL) 109.0 mmol/L 98-107 H CARBON DIOXIDE (test code = CO2) 25.0 mmol/L 21-32 N ANION GAP (test code = GAP) 12.9 10-20 N GLUCOSE (test code = GLU) 99 mg/dL 74-106 N BLOOD UREA NITROGEN (test code = BUN) 23 mg/dL 7-18 H GLOMERULAR FILTRATION RATE (test code = GFR) > 60 mL/min >=60 Estimated GFR by using Modified MDRD formula.Chronic kidney disease is defined as either kidney damageor GFR <60 mL/min/1.73 m2 for >3 months. CREATININE (test code = CREAT) 0.70 mg/dL 0.7-1.3 N BUN/CREATININE RATIO (test code = BUN/CREA) 31.5 10-20 H CALCIUM (test code = CA) 8.4 mg/dL 8.5-10.1 L BASIC METABOLIC [id number] 08:36:00* Test Item Value Reference Range Interpretation Comments SODIUM (test code = NA) 143 mmol/L 136-145 N POTASSIUM (test code = K) 3.9 mmol/L 3.5-5.1 N CHLORIDE (test code = CL) 109.0 mmol/L 98-107 H CARBON DIOXIDE (test code = CO2) mmol/L 21-32 ANION GAP (test code = GAP) 10-20 GLUCOSE (test code = GLU) mg/dL 74-106 BLOOD UREA NITROGEN (test code = BUN) mg/dL 7-18 GLOMERULAR FILTRATION RATE (test code = GFR) mL/min >=60 CREATININE (test code = CREAT) mg/dL 0.7-1.3 BUN/CREATININE RATIO (test code = BUN/CREA) 10-20 CALCIUM (test code = CA) 8.4 mg/dL 8.5-10.1 L [id number] 21:56:00* Test Item Value Reference Range Interpretation Comments GLUBED (test code = GLUBED) 138 mg/dL 74-106 H Performed by certified photogravure press operator at [facility] BASIC METABOLIC [id number] 15:24:00* Test Item Value Reference Range Interpretation Comments SODIUM (test code = NA) 144 mmol/L 136-145 N POTASSIUM (test code = K) 4.4 mmol/L 3.5-5.1 N CHLORIDE (test code = CL) 109.0 mmol/L 98-107 H CARBON DIOXIDE (test code = CO2) 24.0 mmol/L 21-32 N ANION GAP (test code = GAP) 15.4 10-20 N GLUCOSE (test code = GLU) 139 mg/dL 74-106 H BLOOD UREA NITROGEN (test code = BUN) 24 mg/dL 7-18 H GLOMERULAR FILTRATION RATE (test code = GFR) > 60 mL/min >=60 Estimated GFR by using Modified MDRD formula.Chronic kidney disease is defined as either kidney damageor GFR <60 mL/min/1.73 m2 for >3 months. CREATININE (test code = CREAT) 0.80 mg/dL 0.7-1.3 N BUN/CREATININE RATIO (test code = BUN/CREA) 28.5 10-20 H CALCIUM (test code = CA) 9.0 mg/dL 8.5-10.1 N HEPATIC FUNCTION [id number] 15:24:00* Test Item Value Reference Range Interpretation Comments TOTAL PROTEIN (test code = PROT) 7.5 gram/dL 6.4-8.2 N ALBUMIN (test code = ALB) 2.5 g/dL 3.4-5.0 L GLOBULIN (test code = GLOB) 5.0 gram/dL 2.7-4.2 H ALBUMIN/GLOBULIN RATIO (test code = A/G) 0.5 0.75-1.50 L BILIRUBIN TOTAL (test code = BILT) 0.20 mg/dL 0.0-1.0 N BILIRUBIN DIRECT (test code = BILD) 0.10 mg/dL 0.0-0.20 N SGOT/AST (test code = AST) 10 IUnit/L 15-37 L SGPT/ALT (test code = ALT) 15 IUnit/L 12-78 N ALKALINE PHOSPHATASE TOTAL (test code = ALKP) 107 IUnit/L 45-117 N Note change in reference range due to change in reagent. BASIC METABOLIC [id number] 15:17:00* Test Item Value Reference Range Interpretation Comments SODIUM (test code = NA) 144 mmol/L 136-145 N POTASSIUM (test code = K) 4.4 mmol/L 3.5-5.1 N CHLORIDE (test code = CL) 109.0 mmol/L 98-107 H CARBON DIOXIDE (test code = CO2) mmol/L 21-32 ANION GAP (test code = GAP) 10-20 GLUCOSE (test code = GLU) mg/dL 74-106 BLOOD UREA NITROGEN (test code = BUN) mg/dL 7-18 GLOMERULAR FILTRATION RATE (test code = GFR) mL/min >=60 CREATININE (test code = CREAT) mg/dL 0.7-1.3 BUN/CREATININE RATIO (test code = BUN/CREA) 10-20 CALCIUM (test code = CA) mg/dL 8.5-10.1 HEPATIC FUNCTION [id number] 15:17:00* Test Item Value Reference Range Interpretation Comments TOTAL PROTEIN (test code = PROT) gram/dL 6.4-8.2 ALBUMIN (test code = ALB) g/dL 3.4-5.0 GLOBULIN (test code = GLOB) gram/dL 2.7-4.2 ALBUMIN/GLOBULIN RATIO (test code = A/G) 0.75-1.50 BILIRUBIN TOTAL (test code = BILT) mg/dL 0.0-1.0 BILIRUBIN DIRECT (test code = BILD) mg/dL 0.0-0.20 SGOT/AST (test code = AST) IUnit/L 15-37 SGPT/ALT (test code = ALT) IUnit/L 12-78 ALKALINE PHOSPHATASE TOTAL (test code = ALKP) IUnit/L 45-117 PROTHROMBIN [id number] 15:14:00* Test Item Value Reference Range Interpretation Comments PROTHROMBIN TIME PATIENT (test code = PTP) 13.0 seconds 9.0-14.0 N INTERNATIONAL NORMAL RATIO (test code = INR) 1.1 0.8-1.2 N The therapeutic range for oral anticoagulant therapy formost indications is an international normalized ratio (INR)of between 2.0 and 3.0. The recommended therapeutic INRrange for various clinical situations is listed below: Clinical Situation INR range Pulmonary e mbolism treatment (2.0-3.0)Venous thrombosis treatmentVenous thrombosis prophylaxis (high risk surgery)Prevention of systemic embolism from: Acute myocardial infarction Valvular heart disease Atrial fibrillation Mechanical prosthetic heart valves (2.5-3.5) IS PATIENT ON ANTICOAGULANTS? NTHROMBOPLASTIN TIME [id number] 15:14:00* Test Item Value Reference Range Interpretation Comments THROMBOPLASTIN TIME PARTIAL (test code = PTT) 34.1 seconds 25.0-36. 5 N IS PATIENT ON ANTICOAGULANTS? NCBC W/O [id number] 15:04:00* Test Item Value Reference Range Interpretation Comments WHITE BLOOD CELL (test code = WBC) 13.6 K/mm3 4.5-12.5 H RED BLOOD CELL (test code = RBC) 3.65 mill/mm3 4.0-5.8 L HEMOGLOBIN (test code = HGB) 10.6 gram/dL 13.0-17.5 L HEMATOCRIT (test code = HCT) 33.7 % 42.0-52.0 L MEAN CELL VOLUME (test code = MCV) 92.3 fL 80-98 N MEAN CELL HGB (test code = MCH) 29.0 picogram 27.0-33.0 N MEAN CELL HGB CONCETRATION (test code = MCHC) 31.5 gram/dL 33.0-36. 0 L RED CELL DISTRIBUTION WIDTH (test code = RDW) 14.1 % 11.6-16. 2 N PLATELET COUNT (test code = PLT) 415 K/mm3 150-450 N MEAN PLATELET VOLUME (test code = MPV) 8.3 fL 6.7-11.0 N [id number] 16:28:00* Test Item Value Reference Range Interpretation Comments GLUBED (test code = GLUBED) 166 mg/dL 74-106 H Performed by certified photogravure press operator at [facility] [id number] 16:28:00* Test Item Value Reference Range Interpretation Comments GLUBED (test code = GLUBED) 287 mg/dL 74-106 H Performed by certified photogravure press operator at [facility] [id number] 08:23:00* Test Item Value Reference Range Interpretation Comments GLUBED (test code = GLUBED) 160 mg/dL 74-106 H Performed by certified photogravure press operator [facility]~ [id number] 21:32:00* Test Item Value Reference Range Interpretation Comments GLUBED (test code = GLUBED) 179 mg/dL 74-106 H Performed by certified photogravure press operator at [facility] [id number] 16:51:00* Test Item Value Reference Range Interpretation Comments GLUBED (test code = GLUBED) 251 mg/dL 74-106 H Performed by certified photogravure press operator at [facility] [id number] 14:59:00* Test Item Value Reference Range Interpretation Comments GLUBED (test code = GLUBED) 182 mg/dL 74-106 H Performed by certified photogravure press operator at [facility] [id number] 08:38:00* Test Item Value Reference Range Interpretation Comments GLUBED (test code = GLUBED) 165 mg/dL 74-106 H Performed by certified photogravure press operator at [facility] [id number] 20:41:00* Test Item Value Reference Range Interpretation Comments GLUBED (test code = GLUBED) 301 mg/dL 74-106 H Performed by certified photogravure press operator at [facility] BASIC METABOLIC [id number] 18:54:00* Test Item Value Reference Range Interpretation Comments SODIUM (test code = NA) 136 mmol/L 136-145 N POTASSIUM (test code = K) 4.3 mmol/L 3.5-5.1 N CHLORIDE (test code = CL) 100.0 mmol/L 98-107 N CARBON DIOXIDE (test code = CO2) 28.0 mmol/L 21-32 N ANION GAP (test code = GAP) 12.3 10-20 N GLUCOSE (test code = GLU) 242 mg/dL 74-106 H BLOOD UREA NITROGEN (test code = BUN) 28 mg/dL 7-18 H GLOMERULAR FILTRATION RATE (test code = GFR) > 60 mL/min >=60 Estimated GFR by using Modified MDRD formula.Chronic kidney disease is defined as either kidney damageor GFR <60 mL/min/1.73 m2 for >3 months. CREATININE (test code = CREAT) 1.00 mg/dL 0.7-1.3 N BUN/CREATININE RATIO (test code = BUN/CREA) 27.5 10-20 H CALCIUM (test code = CA) 8.0 mg/dL 8.5-10.1 L COMPREHENSIVE METABOLIC [id number] 18:54:00* Test Item Value Reference Range Interpretation Comments TOTAL PROTEIN (test code = PROT) 7.7 gram/dL 6.4-8.2 N ALBUMIN (test code = ALB) 2.3 g/dL 3.4-5.0 L GLOBULIN (test code = GLOB) 5.4 gram/dL 2.7-4.2 H ALBUMIN/GLOBULIN RATIO (test code = A/G) 0.4 0.75-1.50 L BILIRUBIN TOTAL (test code = BILT) 0.10 mg/dL 0.0-1.0 N SGOT/AST (test code = AST) 17 IUnit/L 15-37 N SGPT/ALT (test code = ALT) 27 IUnit/L 12-78 N ALKALINE PHOSPHATASE TOTAL (test code = ALKP) 116 IUnit/L 45-117 N Note change in reference range due to change in reagent. BASIC METABOLIC [id number] 18:45:00* Test Item Value Reference Range Interpretation Comments SODIUM (test code = NA) 136 mmol/L 136-145 N POTASSIUM (test code = K) 4.3 mmol/L 3.5-5.1 N CHLORIDE (test code = CL) 100.0 mmol/L 98-107 N CARBON DIOXIDE (test code = CO2) mmol/L 21-32 ANION GAP (test code = GAP) 10-20 GLUCOSE (test code = GLU) mg/dL 74-106 BLOOD UREA NITROGEN (test code = BUN) mg/dL 7-18 GLOMERULAR FILTRATION RATE (test code = GFR) mL/min >=60 CREATININE (test code = CREAT) mg/dL 0.7-1.3 BUN/CREATININE RATIO (test code = BUN/CREA) 10-20 CALCIUM (test code = CA) mg/dL 8.5-10.1 COMPREHENSIVE METABOLIC [id number] 18:45:00* Test Item Value Reference Range Interpretation Comments TOTAL PROTEIN (test code = PROT) gram/dL 6.4-8.2 ALBUMIN (test code = ALB) g/dL 3.4-5.0 GLOBULIN (test code = GLOB) gram/dL 2.7-4.2 ALBUMIN/GLOBULIN RATIO (test code = A/G) 0.75-1.50 BILIRUBIN TOTAL (test code = BILT) mg/dL 0.0-1.0 SGOT/AST (test code = AST) IUnit/L 15-37 SGPT/ALT (test code = ALT) IUnit/L 12-78 ALKALINE PHOSPHATASE TOTAL (test code = ALKP) IUnit/L 45-117 [id number] 17:09:00* Test Item Value Reference Range Interpretation Comments GLUBED (test code = GLUBED) 201 mg/dL 74-106 H Performed by certified photogravure press operator at [facility] [id number] 12:02:00* Test Item Value Reference Range Interpretation Comments GLUBED (test code = GLUBED) 301 mg/dL 74-106 H Performed by certified photogravure press operator at [facility] [id number] 08:41:00* Test Item Value Reference Range Interpretation Comments GLUBED (test code = GLUBED) 135 mg/dL 74-106 H Performed by certified photogravure press operator at [facility] [id number] 21:25:00* Test Item Value Reference Range Interpretation Comments GLUBED (test code = GLUBED) 219 mg/dL 74-106 H Performed by certified photogravure press operator at [facility] [id number] 16:51:00* Test Item Value Reference Range Interpretation Comments GLUBED (test code = GLUBED) 233 mg/dL 74-106 H Performed by certified photogravure press operator at [facility] [id number] 14:41:00* Test Item Value Reference Range Interpretation Comments GLUBED (test code = GLUBED) 242 mg/dL 74-106 H Performed by certified photogravure press operator at [facility] [id number] 13:18:00* Test Item Value Reference Range Interpretation Comments GLYCOSYLATED HEMOGLOBIN (HA1C) (test code = GLYHGB) 6.3 % HbA1 4. 8-6.0 H ESTIMATED AVERAGE GLUCOSE (test code = EAG) 134 MG/DL LIPID PROFILE (CORONARY RISK)2018-12-07 13:15:00* Test Item Value Reference Range Interpretation Comments TRIGLYCERIDES (test code = TRIG) 133 mg/dL 20-150 N CHOLESTEROL (test code = CHOL) 106 mg/dL 0-200 N CHOLESTEROL/HDL RATIO (test code = CHOLHDL) 2.0 RATIO 0-4.9 N RISK ASSOCIATED WITH CHOL/HDL RATIOS: Risk Male Female1/2 AVERAGE 3.43 3.27AVERAGE 4.97 4.442X AVERAGE 9.55 7.053X AVERAGE 23.39 11.04 REFERENCE VALUE IS RELATED TO RISK LEVELS ASRECOMMENDED BY THE [facility]. HEART, LUNG, AND BLOOD INST. HDL CHOLESTEROL (test code = HDL) 37 mg/dL 40-60 L LIPOPROTEIN LDL (test code = LDL) 61 mg/dL 100-129 L Reference Interval: mg/dL mmol/L Optimal <100 <2.6Near/above optimal 100-129 2.6- 3.3Borderline High 130-159 3.4-4.1High 160-189 4.1-4.9Very High >=190 >=4.9========= This LDL result is a direct measurement.========= [id number] 08:37:00* Test Item Value Reference Range Interpretation Comments GLUBED (test code = GLUBED) 115 mg/dL 74-106 H Performed by certified photogravure press operator at [facility] [id number] 23:09:00* Test Item Value Reference Range Interpretation Comments TROPONIN-I (test code = TROPI) <0.015 ng/mL 0-0.045 N COMMENTS TO WIRE BENDER: COLLECT 3 HOURS AFTER PREVIOUS [id number] 21:01:00* Test Item Value Reference Range Interpretation Comments TROPONIN-I (test code = TROPI) <0.015 ng/mL 0-0.045 N COMMENTS TO WIRE BENDER: COLLECT 3 HOURS AFTER PREVIOUS [id number] 20:44:00* Test Item Value Reference Range Interpretation Comments GLUBED (test code = GLUBED) 191 mg/dL 74-106 H Performed by certified photogravure press operator at [facility] [id number] 17:03:00* Test Item Value Reference Range Interpretation Comments GLUBED (test code = GLUBED) 161 mg/dL 74-106 H Performed by certified photogravure press operator at [facility] B-TYPE NATRIURETIC [id number] 14:47:00* Test Item Value Reference Range Interpretation Comments B-TYPE NATRIURETIC PEPTIDE (test code = BNP) 234.48 pgram/mL 0-100 H BASIC METABOLIC [id number] 14:34:00* Test Item Value Reference Range Interpretation Comments SODIUM (test code = NA) 135 mmol/L 136-145 L POTASSIUM (test code = K) 5.1 mmol/L 3.5-5.1 N CHLORIDE (test code = CL) 96.0 mmol/L 98-107 L CARBON DIOXIDE (test code = CO2) 28.0 mmol/L 21-32 N ANION GAP (test code = GAP) 16.1 10-20 N GLUCOSE (test code = GLU) 170 mg/dL 74-106 H BLOOD UREA NITROGEN (test code = BUN) 22 mg/dL 7-18 H GLOMERULAR FILTRATION RATE (test code = GFR) > 60 mL/min >=60 Estimated GFR by using Modified MDRD formula.Chronic kidney disease is defined as either kidney damageor GFR <60 mL/min/1.73 m2 for >3 months. CREATININE (test code = CREAT) 0.90 mg/dL 0.7-1.3 N BUN/CREATININE RATIO (test code = BUN/CREA) 23.4 10-20 H CALCIUM (test code = CA) 8.9 mg/dL 8.5-10.1 N HEPATIC FUNCTION [id number] 14:34:00* Test Item Value Reference Range Interpretation Comments TOTAL PROTEIN (test code = PROT) 7.3 gram/dL 6.4-8.2 N ALBUMIN (test code = ALB) 2.5 g/dL 3.4-5.0 L GLOBULIN (test code = GLOB) 4.8 gram/dL 2.7-4.2 H ALBUMIN/GLOBULIN RATIO (test code = A/G) 0.5 0.75-1.50 L BILIRUBIN TOTAL (test code = BILT) 0.20 mg/dL 0.0-1.0 N BILIRUBIN DIRECT (test code = BILD) 0.11 mg/dL 0.0-0.20 N SGOT/AST (test code = AST) 21 IUnit/L 15-37 N SGPT/ALT (test code = ALT) 34 IUnit/L 12-78 N ALKALINE PHOSPHATASE TOTAL (test code = ALKP) 125 IUnit/L 45-117 H Note change in reference range due to change in reagent. [id number] 14:34:00* Test Item Value Reference Range Interpretation Comments LIPASE (test code = LIP) 157 U/L 73.0-393.0 N [id number] 14:34:00* Test Item Value Reference Range Interpretation Comments MAGNESIUM (test code = MAG) 2.2 mg/dL 1.8-2.4 N [id number] 14:34:00* Test Item Value Reference Range Interpretation Comments TROPONIN-I (test code = TROPI) <0.015 ng/mL 0-0.045 N BASIC METABOLIC [id number] 14:26:00* Test Item Value Reference Range Interpretation Comments SODIUM (test code = NA) 135 mmol/L 136-145 L POTASSIUM (test code = K) 5.1 mmol/L 3.5-5.1 N CHLORIDE (test code = CL) 96.0 mmol/L 98-107 L CARBON DIOXIDE (test code = CO2) mmol/L 21-32 ANION GAP (test code = GAP) 10-20 GLUCOSE (test code = GLU) mg/dL 74-106 BLOOD UREA NITROGEN (test code = BUN) mg/dL 7-18 GLOMERULAR FILTRATION RATE (test code = GFR) mL/min >=60 CREATININE (test code = CREAT) mg/dL 0.7-1.3 BUN/CREATININE RATIO (test code = BUN/CREA) 10-20 CALCIUM (test code = CA) mg/dL 8.5-10.1 HEPATIC FUNCTION [id number] 14:26:00* Test Item Value Reference Range Interpretation Comments TOTAL PROTEIN (test code = PROT) gram/dL 6.4-8.2 ALBUMIN (test code = ALB) g/dL 3.4-5.0 GLOBULIN (test code = GLOB) gram/dL 2.7-4.2 ALBUMIN/GLOBULIN RATIO (test code = A/G) 0.75-1.50 BILIRUBIN TOTAL (test code = BILT) mg/dL 0.0-1.0 BILIRUBIN DIRECT (test code = BILD) mg/dL 0.0-0.20 SGOT/AST (test code = AST) IUnit/L 15-37 SGPT/ALT (test code = ALT) IUnit/L 12-78 ALKALINE PHOSPHATASE TOTAL (test code = ALKP) IUnit/L 45-117 [id number] 14:26:00* Test Item Value Reference Range Interpretation Comments LIPASE (test code = LIP) U/L 73.0-393.0 [id number] 14:26:00* Test Item Value Reference Range Interpretation Comments MAGNESIUM (test code = MAG) mg/dL 1.8-2.4 [id number] 14:26:00* Test Item Value Reference Range Interpretation Comments TROPONIN-I (test code = TROPI) ng/mL 0-0.045 PROTHROMBIN [id number] 14:20:00* Test Item Value Reference Range Interpretation Comments PROTHROMBIN TIME PATIENT (test code = PTP) 13.1 seconds 9.0-14.0 N INTERNATIONAL NORMAL RATIO (test code = INR) 1.1 0.8-1.2 N The therapeutic range for oral anticoagulant therapy formost indications is an international normalized ratio (INR)of between 2.0 and 3.0. The recommended therapeutic INRrange for various clinical situations is listed below: Clinical Situation INR range Pulmonary e mbolism treatment (2.0-3.0)Venous thrombosis treatmentVenous thrombosis prophylaxis (high risk surgery)Prevention of systemic embolism from: Acute myocardial infarction Valvular heart disease Atrial fibrillation Mechanical prosthetic heart valves (2.5-3.5) IS PATIENT ON ANTICOAGULANTS? NTHROMBOPLASTIN TIME [id number] 14:20:00* Test Item Value Reference Range Interpretation Comments THROMBOPLASTIN TIME PARTIAL (test code = PTT) 30.2 seconds 25.0-36. 5 N IS PATIENT ON ANTICOAGULANTS? N- XR CHEST 1 [id number] 14:12:00 FAX: Elizabet Garcia MD [phone] [place]: B St: REG Name: XOCHILT REYNA [facility] : [birth year] Age/S: 78/M [address] [facility] Unit #: [id number] Loc: [place] [address] Phys: Elizabet Garcia MD Acct: [id number] Dis Date: Status: REG ER PHONE #: [phone] Exam Date: 12/06/2018 1350 FAX #: [phone] Reason: CHEST PAIN EXAMS: CPT CODE: [id number] XR CHEST 1 V 30091 REASON FOR EXAM: CHEST PAIN Exam Order Date: 12/06/2018 1:25 PM Ordering M.D.: Elizabet Garcia MD PROCEDURE: - XR CHEST 1 V COMP ARISON: Fluoroscopic views of the chest October 28, 2018 are available for rev iew there is also chest radiograph September 26, 2018 for comparison. FI NDINGS: The lungs are clear. There is no pleural effusion or pneumothor ax. Pulmonary vascularity is within normal limits. Cardiomed iastinal silhouette is normal in size for technique. The mediastinal conto urs are within normal limits. Sternotomy wires, degenerative mccord es of the spine and acromioclavicular joints, ACDF hardware, and other mus culoskeletal findings are stable from the previous radiograph. Prior cholecystectomy. IMPRESSION: No acute cardiopulmonary process. at 14 12 Reported and signed by: Anupam Beltran MD C C: Elizabet Garcia MD Technologist: REGINA CROSS, RT(R) Trnscrd Date/Time/By: 12/06/2018 (1412) : By: [email or web address] [facility] Print D/T: S: 12/06/2018 (2243) PAGE 1 Signed Report CBC W/O [id number] 14:11:00* Test Item Value Reference Range Interpretation Comments WHITE BLOOD CELL (test code = WBC) 14.2 K/mm3 4.5-12.5 H RED BLOOD CELL (test code = RBC) 3.37 mill/mm3 4.0-5.8 L HEMOGLOBIN (test code = HGB) 9.9 gram/dL 13.0-17.5 L HEMATOCRIT (test code = HCT) 31.6 % 42.0-52.0 L MEAN CELL VOLUME (test code = MCV) 93.8 fL 80-98 N MEAN CELL HGB (test code = MCH) 29.4 picogram 27.0-33.0 N MEAN CELL HGB CONCETRATION (test code = MCHC) 31.3 gram/dL 33.0-36. 0 L RED CELL DISTRIBUTION WIDTH (test code = RDW) 15.6 % 11.6-16. 2 N PLATELET COUNT (test code = PLT) 551 K/mm3 150-450 H MEAN PLATELET VOLUME (test code = MPV) 8.6 fL 6.7-11.0 N TROPONIN I [id number] 13:55:00* Test Item Value Reference Range Interpretation Comments TROPONIN I RAPID (test code = TROPIRAP) 0.00 ng/mL <0.08 Please Note New Reference Range 0.00-0.079 ng/mL - Negative>or= 0.08 ng/mL - Positive The use of serial sampling and testing protocol is arecommended practice.An elevated troponin level alone is often not sufficient fordiagnosis of myocardial infarction. Troponin results obtained by different assays may vary.Evaluation of the extent of myocardial damage based onincrease of troponin would be valid only if similarmethodology is used. - SP FLUORO GUID CTRL ACC [id number] 13:38:00 Name: XOCHILT EPSTEIN [facility] : 1940 Age/S: 77 / M [address] [facility] Unit #: [id number] Loc: [place] [address] Phys: Guille Liao MD Acct: [id number] Dis Date: Status: [facility] PHONE #: [phone] Exam Date: 10/28/2018 1230 FAX #: [phone] Reason: EXAMS: CPT CODE: [id number] SP FLUORO GUID CTRL ACC DEV 78214 Fluoro Time: 2 DAP (Gy m2): 0.3 Air Kerma (mGy): 2.79 EXAM: Removal of a tunneled central line with fluoroscopic guidance; INFORMATION: penitentiary patient with history of right foot infection; infection as successfully been treated with long-term intravenous antibiotic therapy and the patient has been referred for removal of the no longer needed tunneled central line. TECHNIQUE AND FINDINGS: The patient was placed supine on the procedure table. Initial fluoroscopic imaging showed the tip of a right IJ tunneled central line positioned in the cranial aspect of the right atrium. The patient's skin in the right infraclavicular region and neck region was prepped and draped in the usual sterile fashion. Xylocaine was adminis tered and the tunneled central line was then mobilized by blunt dissection with a hemostat. It was removed. Fluoroscopic imaging documented complete catheter removal. No complications. IMPRESSION: S uccessful removal of a no longer needed tunneled central line, using flu oroscopic guidance. Fluoroscopy Time: 2 sec CAK : 2.7 9 mGy DAP : 357 mGy sq cm at 1338 Reported and signed by: Guille Liao M.D. CC: Buck Farr MD; Guille Liao MD Technologist: John Paul CONLEY(R) Trnscb Date/Time: 10/28 (0925) t.SDR.GRW Orig Print D/T: S: 10/29/2018 (083 3) PAGE 1 Signed Report [id number] 12:42:00* Test Item Value Reference Range Interpretation Comments GLUBED (test code = GLUBED) 146 mg/dL 74-106 H Performed by certified photogravure press operator at [facility] [id number] 13:21:00* Test Item Value Reference Range Interpretation Comments GLUBED (test code = GLUBED) 57 mg/dL 74-106 L Performed by certified photogravure press operator at [facility] EXTREMITY,[id number] 14:54:00 RUN DATE: 10/18/18 [place] - Lab PAGE 1 RUN TIME: 1454 Specimen Inqui ry RUN USER: INTERFACE PATIENT: XOCHILT EPSTEIN ACCT #: [id number] LOC: NETTA U #: [id number] AGE/SX: 77/M ROOM: [facility] RE09/26/18REG DR: Buck Farr MD : 40 BED: A DIS: 10/17/18 STATUS: DIS IN TLOC: SPEC #: [id number] RECD: 10/08/18 STATUS: MARLO RE #: [id number] BERNARD: 10/07/18- DR: Carrie Harper MD ENTERED: 10/08/18 SP TYPE: EXT. AMPU OTHR DR: Hernando Encarnacion MD, Chad C DPM Egziti, Tsegaw MD F ahnbulleh MD,Talon Herrera MD, Irfan MD Kha n, Salman A MDORDERED: GROSS COPIES TO: Hernando Canales MD [address] [place] [address] Shamir Thomson DPM [address] [place] [id number] Anabel Arambula MD [address] [place] [address] Albaro HICSK,Akira Menchaca [facility] [address] [place] [address] Talon Coates MD [address] [place] [address] Yani Herbert MD [address] [facility] [address] [place], [place] [address] Codey Carpio MD [address] [facility] [address] [place], [place] [address] CONTINUED ON NEXT PAGE RUN DATE: 10/18/18 [facility] PAGE 2 RUN TIME: 1454 Specimen Inquiry RUN USER: INTERFACE SPEC #: [id number] PATIENT: XOCHILT EPSTEIN #[id number] (Continued) COPIES TO: (Continued) Carrie Harper MD [address] [place] [address] PROCEDURES: GROSS (10/18/18-1303) TISSUES: LEFT LEG - BELOW KNEE AMPUTATION CLINICAL HISTORY COLLECTION DA TE: 10/05/2018 LEFT HEEL OSTEOMYELITIS FINAL DIAGNOSIS Left leg , below the knee amputation: DEEP ULCERATION WITH ASSOCIATED OSTEOMYELITI S, HEEL ULCERATIONS, DISTAL FOOT SEVERE CALCIFIC ATHEROSCLEROSIS DMW/bhargav A [id number], [address]689 MACROSCOPIC The specimen is received in a red bag and labeled with the patient's name. The specimen cons ists of a right lower extremity which has been amputated below the knee. It m easures 36 cm from the bottom of the heel to the bony margin of resection and 25 cm across the length of the foot. There is a previous amputation of the se cond and third toes. There are three ulcers at this site. In addition there is a deep ulceration present on the heel and bottom of the foot which measures 7 x 6 cm. There is sloughing of the skin of the foot and the lower leg. The soft tissue appears viable at the margins. Samples of the ulcer site and und erlying bone are submitted for decalcification and follow-up microscopic evalu ation in cassette (1A). A sample of the ulcer site at the base of the great t oe is submitted for microscopic evaluation in cassette (1B). Samples of the p roximal blood vessels are submitted for light decalcification and follow-up mi croscopic evaluation in cassette (1C). GROSS PERFORMED AT [facility] [address] [place] [address] (P)[phone] CONTINUED ON NEXT PAGE RUN DATE: 10/18/18 [facility] Lab PAGE 3 RUN TIME: 1454 Specimen Inquiry RUN USER: INTERFACE SPEC #: [id number] PATIENT: XOCHILT EPSTEIN #[id number] (Continued) MICROSCOPIC All of the stains, including any controls performed, stain ap propriately. MICROSCOPIC PERFORMED AT [facility] [address] [place] [address] (P)[phone] PERFORMING SITE Diagnosis performed at: [facility], [place] [address] [place], [place] [address] Signed SIGNATURE ON F Sol Carrasco MD 10/18/18 1454 END OF REPORT GLUBED 2018-10-17 12:06:00* Test Item Value Reference Range Interpretation Comments GLUBED (test code = GLUBED) 192 mg/dL 74-106 H Performed by certified photogravure press operator at [facility] [id number] 06:39:00* Test Item Value Reference Range Interpretation Comments GLUBED (test code = GLUBED) 113 mg/dL 74-106 H Performed by certified photogravure press operator at [facility] [id number] 06:06:00* Test Item Value Reference Range Interpretation Comments POTASSIUM (test code = K) 3.7 mmol/L 3.5-5.1 N [id number] 21:24:00* Test Item Value Reference Range Interpretation Comments GLUBED (test code = GLUBED) 175 mg/dL 74-106 H Performed by certified photogravure press operator at [facility] [id number] 18:02:00* Test Item Value Reference Range Interpretation Comments GLUBED (test code = GLUBED) 245 mg/dL 74-106 H Performed by certified photogravure press operator [facility]~ [id number] 12:45:00* Test Item Value Reference Range Interpretation Comments GLUBED (test code = GLUBED) 253 mg/dL 74-106 H Performed by certified photogravure press operator [facility] CBC W/MANUAL [id number] 06:50:00* Test Item Value Reference Range Interpretation Comments WHITE BLOOD CELL (test code = WBC) 15.1 K/mm3 4.5-12.5 H RED BLOOD CELL (test code = RBC) 3.07 mill/mm3 4.0-5.8 L HEMOGLOBIN (test code = HGB) 8.3 gram/dL 13.0-17.5 L HEMATOCRIT (test code = HCT) 27.7 % 42.0-52.0 L MEAN CELL VOLUME (test code = MCV) 90.2 fL 80-98 N MEAN CELL HGB (test code = MCH) 27.0 picogram 27.0-33.0 N MEAN CELL HGB CONCETRATION (test code = MCHC) 30.0 gram/dL 33.0-36. 0 L RED CELL DISTRIBUTION WIDTH (test code = RDW) 16.3 % 11.6-16. 2 H RED CELL DISTRIBUTION WIDTH SD (test code = RDW-SD) 54.3 fL 37 .0-51.0 H PLATELET COUNT (test code = PLT) 374 K/mm3 150-450 N MEAN PLATELET VOLUME (test code = MPV) 9.6 fL 6.7-11.0 N IMMATURE GRANULOCYTE % (test code = IG%) 10.9 % 0.0-5.0 H "The appearance of immature granulocytes (myelocytes,pro-myelocytes, meta-myelocytes) in the peripheral blood ofnon- individuals can indicate a response toinfection, inflammation, or other stimulus to the bonemarrow" NUCLEATED RBC % (test code = NRBC%) 0.0 % 0-0 N NEUTROPHIL # (test code = NT#) 11.76 K/mm3 1.8-7.7 H IMMATURE GRANULOCYTE # (test code = IG#) 1.65 x10 3/uL 0-0.03 H LYMPHOCYTE # (test code = LY#) 0.73 K/mm3 1.0-5.0 L MONOCYTE # (test code = MO#) 0.75 K/mm3 0-0.8 N EOSINOPHIL # (test code = EO#) 0.10 K/mm3 0.0-0.5 N BASOPHIL # (test code = BA#) 0.13 K/mm3 0.0-0.2 N NUCLEATED RBC # (test code = NRBC#) 0.00 K/mm3 0.0-0.1 N MANUAL DIFF REQUIRED (test code = MDIFF) YES STAIN ACCEPTABILITY (test code = STN ACCEPTABLE) STAIN ACCEPTABLE TOTAL CELLS COUNTED (test code = TCC) 115 #CELLS SEGMENTED NEUTROPHILS (test code = SEG) 86.1 % 39-69 H BAND NEUTROPHIL (test code = BAND) 0.9 % 0-10 N LYMPHOCYTE (test code = LYMPH) 7.8 % 25-55 L REACTIVE LYMPH (test code = RELYMPH) 0 % MONOCYTE (test code = MON) 0.9 % 0-10 N EOSINOPHIL (test code = EOS) 0.8 % 0.0-5.0 N BASOPHIL (test code = BASO) 0.9 % 0-1.0 N METAMYELOCYTE (test code = META) 0.9 % 0-0 H MYELOCYTE (test code = MYELO) 1.7 % 0.0-0.0 H PROMYELOCYTE (test code = PROM) 0 % 0-0 N PLATELET ESTIMATE (test code = PLTEST) ADEQUATE PLATELET MORPHOLOGY (test code = PLTMORPH) NORMAL IMMATURE FORMS (test code = IMMAT) 0 % 0-0 N [id number] 06:40:00* Test Item Value Reference Range Interpretation Comments GLUBED (test code = GLUBED) 106 mg/dL 74-106 N Performed by certified photogravure press operator at [facility] [id number] 06:08:00* Test Item Value Reference Range Interpretation Comments GLUBED (test code = GLUBED) 56 mg/dL 74-106 L Performed by certified photogravure press operator at [facility] BASIC METABOLIC [id number] 05:57:00* Test Item Value Reference Range Interpretation Comments SODIUM (test code = NA) 138 mmol/L 136-145 N POTASSIUM (test code = K) 3.2 mmol/L 3.5-5.1 L CHLORIDE (test code = CL) 102.0 mmol/L 98-107 N CARBON DIOXIDE (test code = CO2) 28.0 mmol/L 21-32 N ANION GAP (test code = GAP) 11.2 10-20 N GLUCOSE (test code = GLU) 86 mg/dL 74-106 N BLOOD UREA NITROGEN (test code = BUN) 26 mg/dL 7-18 H GLOMERULAR FILTRATION RATE (test code = GFR) > 60 mL/min >=60 Estimated GFR by using Modified MDRD formula.Chronic kidney disease is defined as either kidney damageor GFR <60 mL/min/1.73 m2 for >3 months. CREATININE (test code = CREAT) 0.80 mg/dL 0.7-1.3 N BUN/CREATININE RATIO (test code = BUN/CREA) 32.5 10-20 H CALCIUM (test code = CA) 7.7 mg/dL 8.5-10.1 L BASIC METABOLIC [id number] 05:48:00* Test Item Value Reference Range Interpretation Comments SODIUM (test code = NA) 138 mmol/L 136-145 N POTASSIUM (test code = K) 3.2 mmol/L 3.5-5.1 L CHLORIDE (test code = CL) 102.0 mmol/L 98-107 N CARBON DIOXIDE (test code = CO2) mmol/L 21-32 ANION GAP (test code = GAP) 10-20 GLUCOSE (test code = GLU) mg/dL 74-106 BLOOD UREA NITROGEN (test code = BUN) mg/dL 7-18 GLOMERULAR FILTRATION RATE (test code = GFR) mL/min >=60 CREATININE (test code = CREAT) mg/dL 0.7-1.3 BUN/CREATININE RATIO (test code = BUN/CREA) 10-20 CALCIUM (test code = CA) mg/dL 8.5-10.1 CBC W/MANUAL [id number] 05:25:00* Test Item Value Reference Range Interpretation Comments WHITE BLOOD CELL (test code = WBC) 15.1 K/mm3 4.5-12.5 H RED BLOOD CELL (test code = RBC) 3.07 mill/mm3 4.0-5.8 L HEMOGLOBIN (test code = HGB) 8.3 gram/dL 13.0-17.5 L HEMATOCRIT (test code = HCT) 27.7 % 42.0-52.0 L MEAN CELL VOLUME (test code = MCV) 90.2 fL 80-98 N MEAN CELL HGB (test code = MCH) 27.0 picogram 27.0-33.0 N MEAN CELL HGB CONCETRATION (test code = MCHC) 30.0 gram/dL 33.0-36. 0 L RED CELL DISTRIBUTION WIDTH (test code = RDW) 16.3 % 11.6-16. 2 H RED CELL DISTRIBUTION WIDTH SD (test code = RDW-SD) 54.3 fL 37 .0-51.0 H PLATELET COUNT (test code = PLT) 374 K/mm3 150-450 N MEAN PLATELET VOLUME (test code = MPV) 9.6 fL 6.7-11.0 N IMMATURE GRANULOCYTE % (test code = IG%) 10.9 % 0.0-5.0 H "The appearance of immature granulocytes (myelocytes,pro-myelocytes, meta-myelocytes) in the peripheral blood ofnon- individuals can indicate a response toinfection, inflammation, or other stimulus to the bonemarrow" NUCLEATED RBC % (test code = NRBC%) 0.0 % 0-0 N NEUTROPHIL # (test code = NT#) 11.76 K/mm3 1.8-7.7 H IMMATURE GRANULOCYTE # (test code = IG#) 1.65 x10 3/uL 0-0.03 H LYMPHOCYTE # (test code = LY#) 0.73 K/mm3 1.0-5.0 L MONOCYTE # (test code = MO#) 0.75 K/mm3 0-0.8 N EOSINOPHIL # (test code = EO#) 0.10 K/mm3 0.0-0.5 N BASOPHIL # (test code = BA#) 0.13 K/mm3 0.0-0.2 N NUCLEATED RBC # (test code = NRBC#) 0.00 K/mm3 0.0-0.1 N MANUAL DIFF REQUIRED (test code = MDIFF) YES STAIN ACCEPTABILITY (test code = STN ACCEPTABLE) TOTAL CELLS COUNTED (test code = TCC) #CELLS SEGMENTED NEUTROPHILS (test code = SEG) % 39-69 LYMPHOCYTE (test code = LYMPH) % 25-55 MONOCYTE (test code = MON) % 0-10 MORPHOLOGY COMMENT (test code = MOC) PLATELET ESTIMATE (test code = PLTEST) PLATELET MORPHOLOGY (test code = PLTMORPH) [id number] 21:55:00* Test Item Value Reference Range Interpretation Comments GLUBED (test code = GLUBED) 248 mg/dL 74-106 H Performed by certified photogravure press operator at [facility] [id number] 19:46:00* Test Item Value Reference Range Interpretation Comments GLUBED (test code = GLUBED) 179 mg/dL 74-106 H Performed by certified photogravure press operator at [facility] [id number] 12:51:00* Test Item Value Reference Range Interpretation Comments GLUBED (test code = GLUBED) 167 mg/dL 74-106 H Performed by certified photogravure press operator at [facility] [id number] 09:42:00* Test Item Value Reference Range Interpretation Comments GLUBED (test code = GLUBED) 237 mg/dL 74-106 H Performed by certified photogravure press operator at [facility] [id number] 06:40:00* Test Item Value Reference Range Interpretation Comments GLUBED (test code = GLUBED) 132 mg/dL 74-106 H Performed by certified photogravure press operator at [facility] [id number] 17:15:00* Test Item Value Reference Range Interpretation Comments GLUBED (test code = GLUBED) 159 mg/dL 74-106 H Performed by certified photogravure press operator at [facility] [id number] 17:15:00* Test Item Value Reference Range Interpretation Comments GLUBED (test code = GLUBED) 182 mg/dL 74-106 H Performed by certified photogravure press operator at [facility] CBC W/AUTO [id number] 06:53:00* Test Item Value Reference Range Interpretation Comments WHITE BLOOD CELL (test code = WBC) 12.3 K/mm3 4.5-12.5 N RED BLOOD CELL (test code = RBC) 3.26 mill/mm3 4.0-5.8 L HEMOGLOBIN (test code = HGB) 8.6 gram/dL 13.0-17.5 L HEMATOCRIT (test code = HCT) 29.2 % 42.0-52.0 L MEAN CELL VOLUME (test code = MCV) 89.6 fL 80-98 N MEAN CELL HGB (test code = MCH) 26.4 picogram 27.0-33.0 L MEAN CELL HGB CONCETRATION (test code = MCHC) 29.5 gram/dL 33.0-36. 0 L RED CELL DISTRIBUTION WIDTH (test code = RDW) 16.1 % 11.6-16. 2 N RED CELL DISTRIBUTION WIDTH SD (test code = RDW-SD) 52.8 fL 37 .0-51.0 H PLATELET COUNT (test code = PLT) 405 K/mm3 150-450 N MEAN PLATELET VOLUME (test code = MPV) 9.4 fL 6.7-11.0 N NEUTROPHIL % (test code = NT%) 85.8 % 39.0-69.0 H IMMATURE GRANULOCYTE % (test code = IG%) 4.9 % 0.0-5.0 N LYMPHOCYTE % (test code = LY%) 4.1 % 25.0-55.0 L MONOCYTE % (test code = MO%) 4.4 % 0.0-10.0 N EOSINOPHIL % (test code = EO%) 0.2 % 0.0-5.0 N BASOPHIL % (test code = BA%) 0.6 % 0.0-1.0 N NUCLEATED RBC % (test code = NRBC%) 0.0 % 0-0 N NEUTROPHIL # (test code = NT#) 10.58 K/mm3 1.8-7.7 H IMMATURE GRANULOCYTE # (test code = IG#) 0.61 x10 3/uL 0-0.03 H LYMPHOCYTE # (test code = LY#) 0.51 K/mm3 1.0-5.0 L MONOCYTE # (test code = MO#) 0.54 K/mm3 0-0.8 N EOSINOPHIL # (test code = EO#) 0.03 K/mm3 0.0-0.5 N BASOPHIL # (test code = BA#) 0.07 K/mm3 0.0-0.2 N NUCLEATED RBC # (test code = NRBC#) 0.00 K/mm3 0.0-0.1 N MANUAL DIFF REQUIRED (test code = MDIFF) NO, ONLY SCAN NEEDED DIFFERENTIAL [id number] 06:53:00* Test Item Value Reference Range Interpretation Comments STAIN ACCEPTABILITY (test code = STN ACCEPTABLE) STAIN ACCEPTABLE ANISOCYTOSIS (test code = ANISO) 1+ MORPHOLOGY COMMENT (test code = MOC) NORMAL PLATELET ESTIMATE (test code = PLTEST) ADEQUATE PLATELET MORPHOLOGY (test code = PLTMORPH) NORMAL [id number] 06:11:00* Test Item Value Reference Range Interpretation Comments GLUBED (test code = GLUBED) 131 mg/dL 74-106 H Performed by certified photogravure press operator at [facility] BASIC METABOLIC [id number] 05:51:00* Test Item Value Reference Range Interpretation Comments SODIUM (test code = NA) 141 mmol/L 136-145 N POTASSIUM (test code = K) 3.6 mmol/L 3.5-5.1 N CHLORIDE (test code = CL) 105.0 mmol/L 98-107 N CARBON DIOXIDE (test code = CO2) 31.0 mmol/L 21-32 N ANION GAP (test code = GAP) 8.6 10-20 L GLUCOSE (test code = GLU) 104 mg/dL 74-106 N BLOOD UREA NITROGEN (test code = BUN) 20 mg/dL 7-18 H GLOMERULAR FILTRATION RATE (test code = GFR) > 60 mL/min >=60 Estimated GFR by using Modified MDRD formula.Chronic kidney disease is defined as either kidney damageor GFR <60 mL/min/1.73 m2 for >3 months. CREATININE (test code = CREAT) 0.60 mg/dL 0.7-1.3 L BUN/CREATININE RATIO (test code = BUN/CREA) 33.3 10-20 H CALCIUM (test code = CA) 7.7 mg/dL 8.5-10.1 L [id number] 05:51:00* Test Item Value Reference Range Interpretation Comments MAGNESIUM (test code = MAG) 1.5 mg/dL 1.8-2.4 L BASIC METABOLIC [id number] 05:45:00* Test Item Value Reference Range Interpretation Comments SODIUM (test code = NA) 141 mmol/L 136-145 N POTASSIUM (test code = K) 3.6 mmol/L 3.5-5.1 N CHLORIDE (test code = CL) 105.0 mmol/L 98-107 N CARBON DIOXIDE (test code = CO2) mmol/L 21-32 ANION GAP (test code = GAP) 10-20 GLUCOSE (test code = GLU) mg/dL 74-106 BLOOD UREA NITROGEN (test code = BUN) mg/dL 7-18 GLOMERULAR FILTRATION RATE (test code = GFR) mL/min >=60 CREATININE (test code = CREAT) mg/dL 0.7-1.3 BUN/CREATININE RATIO (test code = BUN/CREA) 10-20 CALCIUM (test code = CA) mg/dL 8.5-10.1 [id number] 05:45:00* Test Item Value Reference Range Interpretation Comments MAGNESIUM (test code = MAG) mg/dL 1.8-2.4 CBC W/AUTO [id number] 05:35:00* Test Item Value Reference Range Interpretation Comments WHITE BLOOD CELL (test code = WBC) 12.3 K/mm3 4.5-12.5 N RED BLOOD CELL (test code = RBC) 3.26 mill/mm3 4.0-5.8 L HEMOGLOBIN (test code = HGB) 8.6 gram/dL 13.0-17.5 L HEMATOCRIT (test code = HCT) 29.2 % 42.0-52.0 L MEAN CELL VOLUME (test code = MCV) 89.6 fL 80-98 N MEAN CELL HGB (test code = MCH) 26.4 picogram 27.0-33.0 L MEAN CELL HGB CONCETRATION (test code = MCHC) 29.5 gram/dL 33.0-36. 0 L RED CELL DISTRIBUTION WIDTH (test code = RDW) 16.1 % 11.6-16. 2 N RED CELL DISTRIBUTION WIDTH SD (test code = RDW-SD) 52.8 fL 37 .0-51.0 H PLATELET COUNT (test code = PLT) 405 K/mm3 150-450 N MEAN PLATELET VOLUME (test code = MPV) 9.4 fL 6.7-11.0 N NEUTROPHIL % (test code = NT%) 85.8 % 39.0-69.0 H IMMATURE GRANULOCYTE % (test code = IG%) 4.9 % 0.0-5.0 N LYMPHOCYTE % (test code = LY%) 4.1 % 25.0-55.0 L MONOCYTE % (test code = MO%) 4.4 % 0.0-10.0 N EOSINOPHIL % (test code = EO%) 0.2 % 0.0-5.0 N BASOPHIL % (test code = BA%) 0.6 % 0.0-1.0 N NUCLEATED RBC % (test code = NRBC%) 0.0 % 0-0 N NEUTROPHIL # (test code = NT#) 10.58 K/mm3 1.8-7.7 H IMMATURE GRANULOCYTE # (test code = IG#) 0.61 x10 3/uL 0-0.03 H LYMPHOCYTE # (test code = LY#) 0.51 K/mm3 1.0-5.0 L MONOCYTE # (test code = MO#) 0.54 K/mm3 0-0.8 N EOSINOPHIL # (test code = EO#) 0.03 K/mm3 0.0-0.5 N BASOPHIL # (test code = BA#) 0.07 K/mm3 0.0-0.2 N NUCLEATED RBC # (test code = NRBC#) 0.00 K/mm3 0.0-0.1 N MANUAL DIFF REQUIRED (test code = MDIFF) NO, ONLY SCAN NEEDED DIFFERENTIAL [id number] 05:35:00* Test Item Value Reference Range Interpretation Comments STAIN ACCEPTABILITY (test code = STN ACCEPTABLE) CABOT RINGS (test code = CAB) MORPHOLOGY COMMENT (test code = MOC) PLATELET ESTIMATE (test code = PLTEST) PLATELET MORPHOLOGY (test code = PLTMORPH) CBC W/AUTO [id number] 05:35:00* Test Item Value Reference Range Interpretation Comments WHITE BLOOD CELL (test code = WBC) 12.3 K/mm3 4.5-12.5 N RED BLOOD CELL (test code = RBC) 3.26 mill/mm3 4.0-5.8 L HEMOGLOBIN (test code = HGB) 8.6 gram/dL 13.0-17.5 L HEMATOCRIT (test code = HCT) 29.2 % 42.0-52.0 L MEAN CELL VOLUME (test code = MCV) 89.6 fL 80-98 N MEAN CELL HGB (test code = MCH) 26.4 picogram 27.0-33.0 L MEAN CELL HGB CONCETRATION (test code = MCHC) 29.5 gram/dL 33.0-36. 0 L RED CELL DISTRIBUTION WIDTH (test code = RDW) 16.1 % 11.6-16. 2 N RED CELL DISTRIBUTION WIDTH SD (test code = RDW-SD) 52.8 fL 37 .0-51.0 H PLATELET COUNT (test code = PLT) 405 K/mm3 150-450 N MEAN PLATELET VOLUME (test code = MPV) 9.4 fL 6.7-11.0 N NEUTROPHIL % (test code = NT%) 85.8 % 39.0-69.0 H IMMATURE GRANULOCYTE % (test code = IG%) 4.9 % 0.0-5.0 N LYMPHOCYTE % (test code = LY%) 4.1 % 25.0-55.0 L MONOCYTE % (test code = MO%) 4.4 % 0.0-10.0 N EOSINOPHIL % (test code = EO%) 0.2 % 0.0-5.0 N BASOPHIL % (test code = BA%) 0.6 % 0.0-1.0 N NUCLEATED RBC % (test code = NRBC%) 0.0 % 0-0 N NEUTROPHIL # (test code = NT#) 10.58 K/mm3 1.8-7.7 H IMMATURE GRANULOCYTE # (test code = IG#) 0.61 x10 3/uL 0-0.03 H LYMPHOCYTE # (test code = LY#) 0.51 K/mm3 1.0-5.0 L MONOCYTE # (test code = MO#) 0.54 K/mm3 0-0.8 N EOSINOPHIL # (test code = EO#) 0.03 K/mm3 0.0-0.5 N BASOPHIL # (test code = BA#) 0.07 K/mm3 0.0-0.2 N NUCLEATED RBC # (test code = NRBC#) 0.00 K/mm3 0.0-0.1 N MANUAL DIFF REQUIRED (test code = MDIFF) NO, ONLY SCAN NEEDED DIFFERENTIAL [id number] 05:35:00* Test Item Value Reference Range Interpretation Comments STAIN ACCEPTABILITY (test code = STN ACCEPTABLE) CABOT RINGS (test code = CAB) MORPHOLOGY COMMENT (test code = MOC) PLATELET ESTIMATE (test code = PLTEST) PLATELET MORPHOLOGY (test code = PLTMORPH) CBC W/AUTO [id number] 05:35:00* Test Item Value Reference Range Interpretation Comments WHITE BLOOD CELL (test code = WBC) 12.3 K/mm3 4.5-12.5 N RED BLOOD CELL (test code = RBC) 3.26 mill/mm3 4.0-5.8 L HEMOGLOBIN (test code = HGB) 8.6 gram/dL 13.0-17.5 L HEMATOCRIT (test code = HCT) 29.2 % 42.0-52.0 L MEAN CELL VOLUME (test code = MCV) 89.6 fL 80-98 N MEAN CELL HGB (test code = MCH) 26.4 picogram 27.0-33.0 L MEAN CELL HGB CONCETRATION (test code = MCHC) 29.5 gram/dL 33.0-36. 0 L RED CELL DISTRIBUTION WIDTH (test code = RDW) 16.1 % 11.6-16. 2 N RED CELL DISTRIBUTION WIDTH SD (test code = RDW-SD) 52.8 fL 37 .0-51.0 H PLATELET COUNT (test code = PLT) 405 K/mm3 150-450 N MEAN PLATELET VOLUME (test code = MPV) 9.4 fL 6.7-11.0 N NEUTROPHIL % (test code = NT%) 85.8 % 39.0-69.0 H IMMATURE GRANULOCYTE % (test code = IG%) 4.9 % 0.0-5.0 N LYMPHOCYTE % (test code = LY%) 4.1 % 25.0-55.0 L MONOCYTE % (test code = MO%) 4.4 % 0.0-10.0 N EOSINOPHIL % (test code = EO%) 0.2 % 0.0-5.0 N BASOPHIL % (test code = BA%) 0.6 % 0.0-1.0 N NUCLEATED RBC % (test code = NRBC%) 0.0 % 0-0 N NEUTROPHIL # (test code = NT#) 10.58 K/mm3 1.8-7.7 H IMMATURE GRANULOCYTE # (test code = IG#) 0.61 x10 3/uL 0-0.03 H LYMPHOCYTE # (test code = LY#) 0.51 K/mm3 1.0-5.0 L MONOCYTE # (test code = MO#) 0.54 K/mm3 0-0.8 N EOSINOPHIL # (test code = EO#) 0.03 K/mm3 0.0-0.5 N BASOPHIL # (test code = BA#) 0.07 K/mm3 0.0-0.2 N NUCLEATED RBC # (test code = NRBC#) 0.00 K/mm3 0.0-0.1 N MANUAL DIFF REQUIRED (test code = MDIFF) NO, ONLY SCAN NEEDED DIFFERENTIAL [id number] 05:35:00* Test Item Value Reference Range Interpretation Comments STAIN ACCEPTABILITY (test code = STN ACCEPTABLE) MORPHOLOGY COMMENT (test code = MOC) PLATELET ESTIMATE (test code = PLTEST) PLATELET MORPHOLOGY (test code = PLTMORPH) CBC W/AUTO [id number] 05:34:00* Test Item Value Reference Range Interpretation Comments WHITE BLOOD CELL (test code = WBC) 12.3 K/mm3 4.5-12.5 N RED BLOOD CELL (test code = RBC) 3.26 mill/mm3 4.0-5.8 L HEMOGLOBIN (test code = HGB) 8.6 gram/dL 13.0-17.5 L HEMATOCRIT (test code = HCT) 29.2 % 42.0-52.0 L MEAN CELL VOLUME (test code = MCV) 89.6 fL 80-98 N MEAN CELL HGB (test code = MCH) 26.4 picogram 27.0-33.0 L MEAN CELL HGB CONCETRATION (test code = MCHC) 29.5 gram/dL 33.0-36. 0 L RED CELL DISTRIBUTION WIDTH (test code = RDW) 16.1 % 11.6-16. 2 N RED CELL DISTRIBUTION WIDTH SD (test code = RDW-SD) 52.8 fL 37 .0-51.0 H PLATELET COUNT (test code = PLT) 405 K/mm3 150-450 N MEAN PLATELET VOLUME (test code = MPV) 9.4 fL 6.7-11.0 N NEUTROPHIL % (test code = NT%) 85.8 % 39.0-69.0 H IMMATURE GRANULOCYTE % (test code = IG%) 4.9 % 0.0-5.0 N LYMPHOCYTE % (test code = LY%) 4.1 % 25.0-55.0 L MONOCYTE % (test code = MO%) 4.4 % 0.0-10.0 N EOSINOPHIL % (test code = EO%) 0.2 % 0.0-5.0 N BASOPHIL % (test code = BA%) 0.6 % 0.0-1.0 N NUCLEATED RBC % (test code = NRBC%) 0.0 % 0-0 N NEUTROPHIL # (test code = NT#) 10.58 K/mm3 1.8-7.7 H IMMATURE GRANULOCYTE # (test code = IG#) 0.61 x10 3/uL 0-0.03 H LYMPHOCYTE # (test code = LY#) 0.51 K/mm3 1.0-5.0 L MONOCYTE # (test code = MO#) 0.54 K/mm3 0-0.8 N EOSINOPHIL # (test code = EO#) 0.03 K/mm3 0.0-0.5 N BASOPHIL # (test code = BA#) 0.07 K/mm3 0.0-0.2 N NUCLEATED RBC # (test code = NRBC#) 0.00 K/mm3 0.0-0.1 N MANUAL DIFF REQUIRED (test code = MDIFF) NO, ONLY SCAN NEEDED DIFFERENTIAL [id number] 05:34:00* Test Item Value Reference Range Interpretation Comments STAIN ACCEPTABILITY (test code = STN ACCEPTABLE) CABOT RINGS (test code = CAB) MORPHOLOGY COMMENT (test code = MOC) PLATELET ESTIMATE (test code = PLTEST) PLATELET MORPHOLOGY (test code = PLTMORPH) [id number] 21:23:00* Test Item Value Reference Range Interpretation Comments GLUBED (test code = GLUBED) 110 mg/dL 74-106 H Performed by certified photogravure press operator at [facility] [id number] 17:19:00* Test Item Value Reference Range Interpretation Comments GLUBED (test code = GLUBED) 97 mg/dL 74-106 N Performed by certified photogravure press operator at [facility] [id number] 17:16:00* Test Item Value Reference Range Interpretation Comments GLUBED (test code = GLUBED) 142 mg/dL 74-106 H Performed by certified photogravure press operator at [facility] [id number] 12:40:00* Test Item Value Reference Range Interpretation Comments GLUBED (test code = GLUBED) 124 mg/dL 74-106 H Performed by certified photogravure press operator at [facility] URINALYSIS [id number] 12:01:00* Test Item Value Reference Range Interpretation Comments UA COLOR (test code = COLU) Light-Yellow YELLOW UA APPEARANCE (test code = APPU) Cloudy CLEAR A UA GLUCOSE DIPSTICK (test code = DGLUU) 30 (Trace) mg/dL NEGATIVE A UA BILIRUBIN DIPSTICK (test code = BILU) NEGATIVE mg/dL NEGATIVE UA KETONE DIPSTICK (test code = KETU) NEGATIVE mg/dL NEGATIVE UA SPECIFIC GRAVITY (test code = SGU) 1.007 1.001-1.035 UA BLOOD DIPSTICK (test code = SUSI) 0.5 mg/dL (2+) mg/dL NEGATIVE A UA PH DIPSTICK (test code = MELINDA) 6.0 5.0-8.0 UA PROTEIN DIPSTICK (test code = PROU) 20 (Trace) mg/dL NEGATIVE A UA UROBILINIOGEN DIPSTICK (test code = URO) Normal mg/dL NEGATIVE UA NITRITE DIPSTICK (test code = MARIAMA) NEGATIVE NEGATIVE UA LEUKOCYTE ESTERASE W REFLEX (test code = LEUUR) 500 Rasheed/u L (3+) Rasheed/uL NEGATIVE A UA WBC (test code = WBCU) >200 per HPF 0-5 A UA RBC (test code = RBCU) 21-50 #/HPF 0-5 UA WBC CLUMPS (test code = WBCUCL) >10 /HPF NONE A UA EPITHELIAL CELLS (test code = EPIU) FEW per HPF FEW UA BACTERIA (test code = BACU) MODERATE #/HPF NONE A UA MUCUS (test code = MUCU) FEW #/LPF FEW UA AMORPHOUS SEDIMENT (test code = AMORU) MODERATE #/LPF UA YEAST (test code = YEASTU) FEW #/HPF NONE A Urine Source? Clean CatchBASIC METABOLIC [id number] 07:58:00* Test Item Value Reference Range Interpretation Comments SODIUM (test code = NA) 140 mmol/L 136-145 N POTASSIUM (test code = K) 3.1 mmol/L 3.5-5.1 L CHLORIDE (test code = CL) 106.0 mmol/L 98-107 N CARBON DIOXIDE (test code = CO2) 26.0 mmol/L 21-32 N ANION GAP (test code = GAP) 11.1 10-20 N GLUCOSE (test code = GLU) 123 mg/dL 74-106 H BLOOD UREA NITROGEN (test code = BUN) 22 mg/dL 7-18 H GLOMERULAR FILTRATION RATE (test code = GFR) > 60 mL/min >=60 Estimated GFR by using Modified MDRD formula.Chronic kidney disease is defined as either kidney damageor GFR <60 mL/min/1.73 m2 for >3 months. CREATININE (test code = CREAT) 0.80 mg/dL 0.7-1.3 N BUN/CREATININE RATIO (test code = BUN/CREA) 27.5 10-20 H CALCIUM (test code = CA) 8.0 mg/dL 8.5-10.1 L CBC W/AUTO [id number] 07:28:00* Test Item Value Reference Range Interpretation Comments WHITE BLOOD CELL (test code = WBC) 15.8 K/mm3 4.5-12.5 H RED BLOOD CELL (test code = RBC) 3.31 mill/mm3 4.0-5.8 L HEMOGLOBIN (test code = HGB) 8.8 gram/dL 13.0-17.5 L HEMATOCRIT (test code = HCT) 29.2 % 42.0-52.0 L MEAN CELL VOLUME (test code = MCV) 88.2 fL 80-98 N MEAN CELL HGB (test code = MCH) 26.6 picogram 27.0-33.0 L MEAN CELL HGB CONCETRATION (test code = MCHC) 30.1 gram/dL 33.0-36. 0 L RED CELL DISTRIBUTION WIDTH (test code = RDW) 16.0 % 11.6-16. 2 N RED CELL DISTRIBUTION WIDTH SD (test code = RDW-SD) 51.8 fL 37 .0-51.0 H PLATELET COUNT (test code = PLT) 379 K/mm3 150-450 N MEAN PLATELET VOLUME (test code = MPV) 9.6 fL 6.7-11.0 N NEUTROPHIL % (test code = NT%) 89.4 % 39.0-69.0 H IMMATURE GRANULOCYTE % (test code = IG%) 3.9 % 0.0-5.0 N LYMPHOCYTE % (test code = LY%) 3.0 % 25.0-55.0 L MONOCYTE % (test code = MO%) 3.2 % 0.0-10.0 N EOSINOPHIL % (test code = EO%) 0.1 % 0.0-5.0 N BASOPHIL % (test code = BA%) 0.4 % 0.0-1.0 N NUCLEATED RBC % (test code = NRBC%) 0.0 % 0-0 N NEUTROPHIL # (test code = NT#) 14.09 K/mm3 1.8-7.7 H IMMATURE GRANULOCYTE # (test code = IG#) 0.61 x10 3/uL 0-0.03 H LYMPHOCYTE # (test code = LY#) 0.47 K/mm3 1.0-5.0 L MONOCYTE # (test code = MO#) 0.50 K/mm3 0-0.8 N EOSINOPHIL # (test code = EO#) 0.02 K/mm3 0.0-0.5 N BASOPHIL # (test code = BA#) 0.06 K/mm3 0.0-0.2 N NUCLEATED RBC # (test code = NRBC#) 0.00 K/mm3 0.0-0.1 N [id number] 21:16:00* Test Item Value Reference Range Interpretation Comments GLUBED (test code = GLUBED) 164 mg/dL 74-106 H Performed by certified photogravure press operator at [facility] [id number] 16:29:00* Test Item Value Reference Range Interpretation Comments GLUBED (test code = GLUBED) 260 mg/dL 74-106 H Performed by certified photogravure press operator at [facility] [id number] 11:42:00* Test Item Value Reference Range Interpretation Comments GLUBED (test code = GLUBED) 230 mg/dL 74-106 H Performed by certified photogravure press operator at [facility] [id number] 05:30:00* Test Item Value Reference Range Interpretation Comments GLUBED (test code = GLUBED) 113 mg/dL 74-106 H Performed by certified photogravure press operator at [facility] [id number] 20:37:00* Test Item Value Reference Range Interpretation Comments GLUBED (test code = GLUBED) 252 mg/dL 74-106 H Performed by certified photogravure press operator at [facility] [id number] 16:20:00* Test Item Value Reference Range Interpretation Comments GLUBED (test code = GLUBED) 175 mg/dL 74-106 H Performed by certified photogravure press operator at [facility] PROCALCITONIN (PCT)[id number] 14:22:00* Test Item Value Reference Range Interpretation Comments PROCALCITONIN (PCT) (test code = PROCAL) 0.22 ng/ml Concentration Interpretation (ng/mL) <0.51 Sepsis is not likely. Local bacterial infection is possible. (LOW RISK for progression to Sepsis) 0.51 - 2.00 Sepsis is possible, but other conditions are known to elevate PCT as well. (MODERATE RISK for progression to Sepsis) > 2.00 Sepsis is likely, unless other causes are known. (HIGH RISK for progression to Severe Sepsis or Septic Shock) 10.00 High likelihood of Severe Sepsis or Septic or higher Shock. *Increased PCT levels may not always be related to systemic bacterial infection.*Low PCT levels do not automatically exclude the presence of bacterial infection.*All results should be interpreted taking into account the patients history. [id number] 13:04:00* Test Item Value Reference Range Interpretation Comments GLUBED (test code = GLUBED) 242 mg/dL 74-106 H Performed by certified photogravure press operator at [facility] BASIC METABOLIC [id number] 12:15:00* Test Item Value Reference Range Interpretation Comments SODIUM (test code = NA) 142 mmol/L 136-145 N POTASSIUM (test code = K) 3.3 mmol/L 3.5-5.1 L CHLORIDE (test code = CL) 107.0 mmol/L 98-107 N CARBON DIOXIDE (test code = CO2) 26.0 mmol/L 21-32 N ANION GAP (test code = GAP) 12.3 10-20 N GLUCOSE (test code = GLU) 231 mg/dL 74-106 H BLOOD UREA NITROGEN (test code = BUN) 20 mg/dL 7-18 H GLOMERULAR FILTRATION RATE (test code = GFR) > 60 mL/min >=60 Estimated GFR by using Modified MDRD formula.Chronic kidney disease is defined as either kidney damageor GFR <60 mL/min/1.73 m2 for >3 months. CREATININE (test code = CREAT) 0.70 mg/dL 0.7-1.3 N BUN/CREATININE RATIO (test code = BUN/CREA) 28.6 10-20 H CALCIUM (test code = CA) 7.5 mg/dL 8.5-10.1 L BASIC METABOLIC [id number] 12:13:00* Test Item Value Reference Range Interpretation Comments SODIUM (test code = NA) 142 mmol/L 136-145 N POTASSIUM (test code = K) 3.3 mmol/L 3.5-5.1 L CHLORIDE (test code = CL) 107.0 mmol/L 98-107 N CARBON DIOXIDE (test code = CO2) mmol/L 21-32 ANION GAP (test code = GAP) 10-20 GLUCOSE (test code = GLU) mg/dL 74-106 BLOOD UREA NITROGEN (test code = BUN) mg/dL 7-18 GLOMERULAR FILTRATION RATE (test code = GFR) mL/min >=60 CREATININE (test code = CREAT) mg/dL 0.7-1.3 BUN/CREATININE RATIO (test code = BUN/CREA) 10-20 CALCIUM (test code = CA) mg/dL 8.5-10.1 [id number] 06:12:00* Test Item Value Reference Range Interpretation Comments GLUBED (test code = GLUBED) 182 mg/dL 74-106 H Performed by certified photogravure press operator at [facility] [id number] 22:30:00* Test Item Value Reference Range Interpretation Comments GLUBED (test code = GLUBED) 138 mg/dL 74-106 H Performed by certified photogravure press operator at [facility] [id number] 16:56:00* Test Item Value Reference Range Interpretation Comments GLUBED (test code = GLUBED) 159 mg/dL 74-106 H Performed by certified photogravure press operator at [facility] CBC W/AUTO [id number] 14:49:00* Test Item Value Reference Range Interpretation Comments WHITE BLOOD CELL (test code = WBC) 10.5 K/mm3 4.5-12.5 N RED BLOOD CELL (test code = RBC) 3.69 mill/mm3 4.0-5.8 L HEMOGLOBIN (test code = HGB) 9.7 gram/dL 13.0-17.5 L HEMATOCRIT (test code = HCT) 32.0 % 42.0-52.0 L MEAN CELL VOLUME (test code = MCV) 86.7 fL 80-98 N MEAN CELL HGB (test code = MCH) 26.3 picogram 27.0-33.0 L MEAN CELL HGB CONCETRATION (test code = MCHC) 30.3 gram/dL 33.0-36. 0 L RED CELL DISTRIBUTION WIDTH (test code = RDW) 15.8 % 11.6-16. 2 N RED CELL DISTRIBUTION WIDTH SD (test code = RDW-SD) 49.6 fL 37 .0-51.0 N PLATELET COUNT (test code = PLT) 337 K/mm3 150-450 N MEAN PLATELET VOLUME (test code = MPV) 9.3 fL 6.7-11.0 N NEUTROPHIL % (test code = NT%) 90.7 % 39.0-69.0 H IMMATURE GRANULOCYTE % (test code = IG%) 2.8 % 0.0-5.0 N LYMPHOCYTE % (test code = LY%) 3.3 % 25.0-55.0 L MONOCYTE % (test code = MO%) 2.9 % 0.0-10.0 N EOSINOPHIL % (test code = EO%) 0.0 % 0.0-5.0 N BASOPHIL % (test code = BA%) 0.3 % 0.0-1.0 N NUCLEATED RBC % (test code = NRBC%) 0.0 % 0-0 N NEUTROPHIL # (test code = NT#) 9.55 K/mm3 1.8-7.7 H IMMATURE GRANULOCYTE # (test code = IG#) 0.30 x10 3/uL 0-0.03 H LYMPHOCYTE # (test code = LY#) 0.35 K/mm3 1.0-5.0 L MONOCYTE # (test code = MO#) 0.31 K/mm3 0-0.8 N EOSINOPHIL # (test code = EO#) 0.00 K/mm3 0.0-0.5 N BASOPHIL # (test code = BA#) 0.03 K/mm3 0.0-0.2 N NUCLEATED RBC # (test code = NRBC#) 0.00 K/mm3 0.0-0.1 N [id number] 12:35:00* Test Item Value Reference Range Interpretation Comments GLUBED (test code = GLUBED) 223 mg/dL 74-106 H Performed by certified photogravure press operator at [facility] [id number] 05:11:00* Test Item Value Reference Range Interpretation Comments GLUBED (test code = GLUBED) 142 mg/dL 74-106 H Performed by certified photogravure press operator at [facility] [id number] 20:50:00* Test Item Value Reference Range Interpretation Comments GLUBED (test code = GLUBED) 162 mg/dL 74-106 H Performed by certified photogravure press operator at [facility] [id number] 17:35:00* Test Item Value Reference Range Interpretation Comments GLUBED (test code = GLUBED) 198 mg/dL 74-106 H Performed by certified photogravure press operator at [facility] [id number] 12:35:00* Test Item Value Reference Range Interpretation Comments GLUBED (test code = GLUBED) 202 mg/dL 74-106 H Performed by certified photogravure press operator at [facility] - SP FLUORO GUID CTRL ACC [id number] 07:17:00 Name: XOCHILT EPSTEIN [facility] : 1940 Age/S: 77 / M [address] [facility] Unit #: [id number] Loc: [place] [address] Phys: Guille Liao MD Acct: [id number] Dis Date: Status: [facility] PHONE #: [phone] Exam Date: 10/07/2018 0946 FAX #: [phone] Reason: EXAMS: CPT CODE: [id number] SP FLUORO GUID CTRL ACC DEV [id number] Fluoro Time: 2 DAP (Gy m2): 0.84 Air Kerma (mGy): 1.85 TECHNIQUE - SP FLUORO GUID CTRL ACC DEV . COMPARISON: None provided. HISTORY: 77 years Male FINDINGS: Fluoroscopic view of the chest. Left IJ tunnel catheter in place. Right IJ tunnel catheter in place. No definite pneumothorax. Please see the intraoperative dictation. IMPRESSION: Fluoroscopic view of the chest. Left IJ tunnel catheter in place. Right IJ tunnel catheter in place. No definite pneumothorax. Please see the intraoperative dictation. at 0717 Reported and signed by: Yordan Clemons M.D. CC: Technologist: John Paul CONLEY(R) Trnscb Date/Time: 10/09/2018 (716) Siena Newman Print D/T: S: 10/09/2018 (719) PAGE 1 Signed Report [id number] 06:29:00* Test Item Value Reference Range Interpretation Comments GLUBED (test code = GLUBED) 111 mg/dL 74-106 H Performed by certified photogravure press operator at [facility] [id number] 21:31:00* Test Item Value Reference Range Interpretation Comments GLUBED (test code = GLUBED) 64 mg/dL 74-106 L Performed by certified photogravure press operator at [facility] [id number] 18:29:00* Test Item Value Reference Range Interpretation Comments GLUBED (test code = GLUBED) 171 mg/dL 74-106 H Performed by certified photogravure press operator at [facility] [id number] 13:11:00* Test Item Value Reference Range Interpretation Comments GLUBED (test code = GLUBED) 132 mg/dL 74-106 H Performed by certified photogravure press operator at [facility] FE W/TOTAL IRON BINDING CAP.2018-10-08 11:45:00* Test Item Value Reference Range Interpretation Comments SERUM IRON (test code = IRON) 19 ug/dL 50-175 L TOTAL IRON BINDING CAPACITY (test code = TIBC) 99 mcg/dL 250-450 L IRON SATURATION (test code = FESAT) 19.19 % 13-45 N VITAMIN [id number] 11:45:00* Test Item Value Reference Range Interpretation Comments VITAMIN B12 (test code = VITB12) 362 pg/mL 193-986 N FOLIC [id number] 11:45:00* Test Item Value Reference Range Interpretation Comments FOLIC ACID (test code = FOL) 8.0 ng/mL 3.10-17.50 N [id number] 11:45:00* Test Item Value Reference Range Interpretation Comments FERRITIN (test code = LUCIUS) 2977 ng/mL 8-388 H [id number] 06:18:00* Test Item Value Reference Range Interpretation Comments GLUBED (test code = GLUBED) 169 mg/dL 74-106 H Performed by certified photogravure press operator at [facility] [id number] 06:14:00* Test Item Value Reference Range Interpretation Comments GLUBED (test code = GLUBED) 103 mg/dL 74-106 N Performed by certified photogravure press operator at [facility] COMPREHENSIVE METABOLIC [id number] 05:33:00* Test Item Value Reference Range Interpretation Comments SODIUM (test code = NA) 141 mmol/L 136-145 N POTASSIUM (test code = K) 4.1 mmol/L 3.5-5.1 N CHLORIDE (test code = CL) 109.2 mmol/L 98-107 H CARBON DIOXIDE (test code = CO2) 25.0 mmol/L 21-32 N ANION GAP (test code = GAP) 10.9 10-20 N GLUCOSE (test code = GLU) 171 mg/dL 74-106 H BLOOD UREA NITROGEN (test code = BUN) 23 mg/dL 7-18 H GLOMERULAR FILTRATION RATE (test code = GFR) > 60 mL/min >=60 Estimated GFR by using Modified MDRD formula.Chronic kidney disease is defined as either kidney damageor GFR <60 mL/min/1.73 m2 for >3 months. CREATININE (test code = CREAT) 0.80 mg/dL 0.7-1.3 N BUN/CREATININE RATIO (test code = BUN/CREA) 28.8 10-20 H TOTAL PROTEIN (test code = PROT) 6.2 gram/dL 6.4-8.2 L ALBUMIN (test code = ALB) 1.5 g/dL 3.4-5.0 L GLOBULIN (test code = GLOB) 4.7 gram/dL 2.7-4.2 H ALBUMIN/GLOBULIN RATIO (test code = A/G) 0.3 0.75-1.50 L CALCIUM (test code = CA) 8.1 mg/dL 8.5-10.1 L BILIRUBIN TOTAL (test code = BILT) 0.20 mg/dL 0.0-1.0 N SGOT/AST (test code = AST) 31 IUnit/L 15-37 N SGPT/ALT (test code = ALT) 36 IUnit/L 12-78 N ALKALINE PHOSPHATASE TOTAL (test code = ALKP) 244 IUnit/L 45-117 H Note change in reference range due to change in reagent. CBC W/AUTO [id number] 05:04:00* Test Item Value Reference Range Interpretation Comments WHITE BLOOD CELL (test code = WBC) 19.0 K/mm3 4.5-12.5 H RED BLOOD CELL (test code = RBC) 3.41 mill/mm3 4.0-5.8 L HEMOGLOBIN (test code = HGB) 9.1 gram/dL 13.0-17.5 L HEMATOCRIT (test code = HCT) 30.1 % 42.0-52.0 L MEAN CELL VOLUME (test code = MCV) 88.3 fL 80-98 N MEAN CELL HGB (test code = MCH) 26.7 picogram 27.0-33.0 L MEAN CELL HGB CONCETRATION (test code = MCHC) 30.2 gram/dL 33.0-36. 0 L RED CELL DISTRIBUTION WIDTH (test code = RDW) 15.9 % 11.6-16. 2 N RED CELL DISTRIBUTION WIDTH SD (test code = RDW-SD) 51.3 fL 37 .0-51.0 H PLATELET COUNT (test code = PLT) 310 K/mm3 150-450 N MEAN PLATELET VOLUME (test code = MPV) 9.6 fL 6.7-11.0 N NEUTROPHIL % (test code = NT%) 89.5 % 39.0-69.0 H IMMATURE GRANULOCYTE % (test code = IG%) 4.2 % 0.0-5.0 N LYMPHOCYTE % (test code = LY%) 2.2 % 25.0-55.0 L MONOCYTE % (test code = MO%) 3.7 % 0.0-10.0 N EOSINOPHIL % (test code = EO%) 0.0 % 0.0-5.0 N BASOPHIL % (test code = BA%) 0.4 % 0.0-1.0 N NUCLEATED RBC % (test code = NRBC%) 0.0 % 0-0 N NEUTROPHIL # (test code = NT#) 16.96 K/mm3 1.8-7.7 H IMMATURE GRANULOCYTE # (test code = IG#) 0.80 x10 3/uL 0-0.03 H LYMPHOCYTE # (test code = LY#) 0.41 K/mm3 1.0-5.0 L MONOCYTE # (test code = MO#) 0.71 K/mm3 0-0.8 N EOSINOPHIL # (test code = EO#) 0.00 K/mm3 0.0-0.5 N BASOPHIL # (test code = BA#) 0.08 K/mm3 0.0-0.2 N NUCLEATED RBC # (test code = NRBC#) 0.00 K/mm3 0.0-0.1 N [id number] 16:47:00* Test Item Value Reference Range Interpretation Comments GLUBED (test code = GLUBED) 97 mg/dL 74-106 N Performed by certified photogravure press operator at [facility] [id number] 11:31:00* Test Item Value Reference Range Interpretation Comments GLUBED (test code = GLUBED) 156 mg/dL 74-106 H Performed by certified photogravure press operator at [facility] [id number] 08:08:00* Test Item Value Reference Range Interpretation Comments GLUBED (test code = GLUBED) 171 mg/dL 74-106 H Performed by certified photogravure press operator at [facility] [id number] 08:08:00* Test Item Value Reference Range Interpretation Comments GLUBED (test code = GLUBED) 140 mg/dL 74-106 H Performed by certified photogravure press operator [facility]~ [id number] 08:07:00* Test Item Value Reference Range Interpretation Comments GLUBED (test code = GLUBED) 184 mg/dL 74-106 H Performed by certified photogravure press operator at [facility] [id number] 08:07:00* Test Item Value Reference Range Interpretation Comments GLUBED (test code = GLUBED) 174 mg/dL 74-106 H Performed by certified photogravure press operator at [facility] [id number] 08:07:00* Test Item Value Reference Range Interpretation Comments GLUBED (test code = GLUBED) 92 mg/dL 74-106 N Performed by certified photogravure press operator at [facility] [id number] 08:07:00* Test Item Value Reference Range Interpretation Comments GLUBED (test code = GLUBED) 54 mg/dL 74-106 L Performed by certified photogravure press operator at [facility] [id number] 08:07:00* Test Item Value Reference Range Interpretation Comments GLUBED (test code = GLUBED) 189 mg/dL 74-106 H Performed by certified photogravure press operator at [facility] [id number] 08:07:00* Test Item Value Reference Range Interpretation Comments GLUBED (test code = GLUBED) 156 mg/dL 74-106 H Performed by certified photogravure press operator at [facility] [id number] 08:06:00* Test Item Value Reference Range Interpretation Comments GLUBED (test code = GLUBED) 182 mg/dL 74-106 H Performed by certified photogravure press operator at [facility] [id number] 08:06:00* Test Item Value Reference Range Interpretation Comments GLUBED (test code = GLUBED) 375 mg/dL 74-106 H Performed by certified photogravure press operator at [facility] [id number] 08:06:00* Test Item Value Reference Range Interpretation Comments GLUBED (test code = GLUBED) 329 mg/dL 74-106 H Performed by certified photogravure press operator at [facility] CBC W/MANUAL [id number] 06:19:00* Test Item Value Reference Range Interpretation Comments WHITE BLOOD CELL (test code = WBC) 24.2 K/mm3 4.5-12.5 H RED BLOOD CELL (test code = RBC) 3.67 mill/mm3 4.0-5.8 L HEMOGLOBIN (test code = HGB) 10.0 gram/dL 13.0-17.5 L HEMATOCRIT (test code = HCT) 33.2 % 42.0-52.0 L MEAN CELL VOLUME (test code = MCV) 90.5 fL 80-98 N MEAN CELL HGB (test code = MCH) 27.2 picogram 27.0-33.0 N MEAN CELL HGB CONCETRATION (test code = MCHC) 30.1 gram/dL 33.0-36. 0 L RED CELL DISTRIBUTION WIDTH (test code = RDW) 15.8 % 11.6-16. 2 N RED CELL DISTRIBUTION WIDTH SD (test code = RDW-SD) 51.8 fL 37 .0-51.0 H PLATELET COUNT (test code = PLT) 349 K/mm3 150-450 RESULT VERIFIED BY REPEAT ANALYSIS MEAN PLATELET VOLUME (test code = MPV) 9.8 fL 6.7-11.0 N IMMATURE GRANULOCYTE % (test code = IG%) 8.3 % 0.0-5.0 H "The appearance of immature granulocytes (myelocytes,pro-myelocytes, meta-myelocytes) in the peripheral blood ofnon- individuals can indicate a response toinfection, inflammation, or other stimulus to the bonemarrow" NUCLEATED RBC % (test code = NRBC%) 0.0 % 0-0 N NEUTROPHIL # (test code = NT#) 20.48 K/mm3 1.8-7.7 H IMMATURE GRANULOCYTE # (test code = IG#) 2.01 x10 3/uL 0-0.03 H LYMPHOCYTE # (test code = LY#) 0.43 K/mm3 1.0-5.0 L MONOCYTE # (test code = MO#) 1.06 K/mm3 0-0.8 H EOSINOPHIL # (test code = EO#) 0.04 K/mm3 0.0-0.5 N BASOPHIL # (test code = BA#) 0.16 K/mm3 0.0-0.2 N NUCLEATED RBC # (test code = NRBC#) 0.00 K/mm3 0.0-0.1 N MANUAL DIFF REQUIRED (test code = MDIFF) YES STAIN ACCEPTABILITY (test code = STN ACCEPTABLE) STAIN ACCEPTABLE TOTAL CELLS COUNTED (test code = TCC) 115 #CELLS SEGMENTED NEUTROPHILS (test code = SEG) 87.8 % 39-69 H BAND NEUTROPHIL (test code = BAND) 1.7 % 0-10 N LYMPHOCYTE (test code = LYMPH) 1.8 % 25-55 L REACTIVE LYMPH (test code = RELYMPH) 0 % MONOCYTE (test code = MON) 4.4 % 0-10 N EOSINOPHIL (test code = EOS) 0 % 0.0-5.0 N BASOPHIL (test code = BASO) 0 % 0-1.0 N METAMYELOCYTE (test code = META) 1.7 % 0-0 H MYELOCYTE (test code = MYELO) 2.6 % 0.0-0.0 H PROMYELOCYTE (test code = PROM) 0 % 0-0 N POLYCHROMASIA (test code = POLC) 2+ POIKILOCYTOSIS (test code = POIK) 1+ ROULEAUX (test code = ROU) SLIGHT JOSELIN CELLS (test code = JOSELIN) 1+ NONE SCHISTOCYTES (test code = LIZZETH) 1+ TOXIC GRANULATION (test code = TOX) 1+ PLATELET ESTIMATE (test code = PLTEST) ADEQUATE PLATELET MORPHOLOGY (test code = PLTMORPH) NORMAL IMMATURE FORMS (test code = IMMAT) 0 % 0-0 N COMPREHENSIVE METABOLIC [id number] 05:56:00* Test Item Value Reference Range Interpretation Comments SODIUM (test code = NA) 138 mmol/L 136-145 N POTASSIUM (test code = K) 4.4 mmol/L 3.5-5.1 N CHLORIDE (test code = CL) 108.0 mmol/L 98-107 H CARBON DIOXIDE (test code = CO2) 23.0 mmol/L 21-32 N ANION GAP (test code = GAP) 11.4 10-20 N GLUCOSE (test code = GLU) 233 mg/dL 74-106 H BLOOD UREA NITROGEN (test code = BUN) 24 mg/dL 7-18 H GLOMERULAR FILTRATION RATE (test code = GFR) > 60 mL/min >=60 Estimated GFR by using Modified MDRD formula.Chronic kidney disease is defined as either kidney damageor GFR <60 mL/min/1.73 m2 for >3 months. CREATININE (test code = CREAT) 0.80 mg/dL 0.7-1.3 N BUN/CREATININE RATIO (test code = BUN/CREA) 30.0 10-20 H TOTAL PROTEIN (test code = PROT) 6.6 gram/dL 6.4-8.2 N ALBUMIN (test code = ALB) 1.6 g/dL 3.4-5.0 L GLOBULIN (test code = GLOB) 5.0 gram/dL 2.7-4.2 H ALBUMIN/GLOBULIN RATIO (test code = A/G) 0.3 0.75-1.50 L CALCIUM (test code = CA) 7.9 mg/dL 8.5-10.1 L BILIRUBIN TOTAL (test code = BILT) 0.20 mg/dL 0.0-1.0 N SGOT/AST (test code = AST) 40 IUnit/L 15-37 H SGPT/ALT (test code = ALT) 46 IUnit/L 12-78 N ALKALINE PHOSPHATASE TOTAL (test code = ALKP) 317 IUnit/L 45-117 H Note change in reference range due to change in reagent. COMPREHENSIVE METABOLIC [id number] 05:47:00* Test Item Value Reference Range Interpretation Comments SODIUM (test code = NA) 138 mmol/L 136-145 N POTASSIUM (test code = K) 4.4 mmol/L 3.5-5.1 N CHLORIDE (test code = CL) 108.0 mmol/L 98-107 H CARBON DIOXIDE (test code = CO2) mmol/L 21-32 ANION GAP (test code = GAP) 10-20 GLUCOSE (test code = GLU) mg/dL 74-106 BLOOD UREA NITROGEN (test code = BUN) mg/dL 7-18 GLOMERULAR FILTRATION RATE (test code = GFR) mL/min >=60 CREATININE (test code = CREAT) mg/dL 0.7-1.3 BUN/CREATININE RATIO (test code = BUN/CREA) 10-20 TOTAL PROTEIN (test code = PROT) gram/dL 6.4-8.2 ALBUMIN (test code = ALB) g/dL 3.4-5.0 GLOBULIN (test code = GLOB) gram/dL 2.7-4.2 ALBUMIN/GLOBULIN RATIO (test code = A/G) 0.75-1.50 CALCIUM (test code = CA) mg/dL 8.5-10.1 BILIRUBIN TOTAL (test code = BILT) mg/dL 0.0-1.0 SGOT/AST (test code = AST) IUnit/L 15-37 SGPT/ALT (test code = ALT) IUnit/L 12-78 ALKALINE PHOSPHATASE TOTAL (test code = ALKP) IUnit/L 45-117 CBC W/MANUAL [id number] 05:43:00* Test Item Value Reference Range Interpretation Comments WHITE BLOOD CELL (test code = WBC) 24.2 K/mm3 4.5-12.5 H RED BLOOD CELL (test code = RBC) 3.67 mill/mm3 4.0-5.8 L HEMOGLOBIN (test code = HGB) 10.0 gram/dL 13.0-17.5 L HEMATOCRIT (test code = HCT) 33.2 % 42.0-52.0 L MEAN CELL VOLUME (test code = MCV) 90.5 fL 80-98 N MEAN CELL HGB (test code = MCH) 27.2 picogram 27.0-33.0 N MEAN CELL HGB CONCETRATION (test code = MCHC) 30.1 gram/dL 33.0-36. 0 L RED CELL DISTRIBUTION WIDTH (test code = RDW) 15.8 % 11.6-16. 2 N RED CELL DISTRIBUTION WIDTH SD (test code = RDW-SD) 51.8 fL 37 .0-51.0 H PLATELET COUNT (test code = PLT) 349 K/mm3 150-450 RESULT VERIFIED BY REPEAT ANALYSIS MEAN PLATELET VOLUME (test code = MPV) 9.8 fL 6.7-11.0 N IMMATURE GRANULOCYTE % (test code = IG%) 8.3 % 0.0-5.0 H "The appearance of immature granulocytes (myelocytes,pro-myelocytes, meta-myelocytes) in the peripheral blood ofnon- individuals can indicate a response toinfection, inflammation, or other stimulus to the bonemarrow" NUCLEATED RBC % (test code = NRBC%) 0.0 % 0-0 N NEUTROPHIL # (test code = NT#) 20.48 K/mm3 1.8-7.7 H IMMATURE GRANULOCYTE # (test code = IG#) 2.01 x10 3/uL 0-0.03 H LYMPHOCYTE # (test code = LY#) 0.43 K/mm3 1.0-5.0 L MONOCYTE # (test code = MO#) 1.06 K/mm3 0-0.8 H EOSINOPHIL # (test code = EO#) 0.04 K/mm3 0.0-0.5 N BASOPHIL # (test code = BA#) 0.16 K/mm3 0.0-0.2 N NUCLEATED RBC # (test code = NRBC#) 0.00 K/mm3 0.0-0.1 N MANUAL DIFF REQUIRED (test code = MDIFF) YES STAIN ACCEPTABILITY (test code = STN ACCEPTABLE) TOTAL CELLS COUNTED (test code = TCC) #CELLS SEGMENTED NEUTROPHILS (test code = SEG) % 39-69 LYMPHOCYTE (test code = LYMPH) % 25-55 MONOCYTE (test code = MON) % 0-10 EOSINOPHIL (test code = EOS) % 0.0-5.0 CABOT RINGS (test code = CAB) MORPHOLOGY COMMENT (test code = MOC) PLATELET ESTIMATE (test code = PLTEST) PLATELET MORPHOLOGY (test code = PLTMORPH) CBC W/MANUAL [id number] 05:43:00* Test Item Value Reference Range Interpretation Comments WHITE BLOOD CELL (test code = WBC) 24.2 K/mm3 4.5-12.5 H RED BLOOD CELL (test code = RBC) 3.67 mill/mm3 4.0-5.8 L HEMOGLOBIN (test code = HGB) 10.0 gram/dL 13.0-17.5 L HEMATOCRIT (test code = HCT) 33.2 % 42.0-52.0 L MEAN CELL VOLUME (test code = MCV) 90.5 fL 80-98 N MEAN CELL HGB (test code = MCH) 27.2 picogram 27.0-33.0 N MEAN CELL HGB CONCETRATION (test code = MCHC) 30.1 gram/dL 33.0-36. 0 L RED CELL DISTRIBUTION WIDTH (test code = RDW) 15.8 % 11.6-16. 2 N RED CELL DISTRIBUTION WIDTH SD (test code = RDW-SD) 51.8 fL 37 .0-51.0 H PLATELET COUNT (test code = PLT) 349 K/mm3 150-450 RESULT VERIFIED BY REPEAT ANALYSIS MEAN PLATELET VOLUME (test code = MPV) 9.8 fL 6.7-11.0 N IMMATURE GRANULOCYTE % (test code = IG%) 8.3 % 0.0-5.0 H "The appearance of immature granulocytes (myelocytes,pro-myelocytes, meta-myelocytes) in the peripheral blood ofnon- individuals can indicate a response toinfection, inflammation, or other stimulus to the bonemarrow" NUCLEATED RBC % (test code = NRBC%) 0.0 % 0-0 N NEUTROPHIL # (test code = NT#) 20.48 K/mm3 1.8-7.7 H IMMATURE GRANULOCYTE # (test code = IG#) 2.01 x10 3/uL 0-0.03 H LYMPHOCYTE # (test code = LY#) 0.43 K/mm3 1.0-5.0 L MONOCYTE # (test code = MO#) 1.06 K/mm3 0-0.8 H EOSINOPHIL # (test code = EO#) 0.04 K/mm3 0.0-0.5 N BASOPHIL # (test code = BA#) 0.16 K/mm3 0.0-0.2 N NUCLEATED RBC # (test code = NRBC#) 0.00 K/mm3 0.0-0.1 N MANUAL DIFF REQUIRED (test code = MDIFF) YES STAIN ACCEPTABILITY (test code = STN ACCEPTABLE) TOTAL CELLS COUNTED (test code = TCC) #CELLS SEGMENTED NEUTROPHILS (test code = SEG) % 39-69 LYMPHOCYTE (test code = LYMPH) % 25-55 MONOCYTE (test code = MON) % 0-10 EOSINOPHIL (test code = EOS) % 0.0-5.0 CABOT RINGS (test code = CAB) MORPHOLOGY COMMENT (test code = MOC) PLATELET ESTIMATE (test code = PLTEST) PLATELET MORPHOLOGY (test code = PLTMORPH) CBC W/MANUAL [id number] 05:43:00* Test Item Value Reference Range Interpretation Comments WHITE BLOOD CELL (test code = WBC) 24.2 K/mm3 4.5-12.5 H RED BLOOD CELL (test code = RBC) 3.67 mill/mm3 4.0-5.8 L HEMOGLOBIN (test code = HGB) 10.0 gram/dL 13.0-17.5 L HEMATOCRIT (test code = HCT) 33.2 % 42.0-52.0 L MEAN CELL VOLUME (test code = MCV) 90.5 fL 80-98 N MEAN CELL HGB (test code = MCH) 27.2 picogram 27.0-33.0 N MEAN CELL HGB CONCETRATION (test code = MCHC) 30.1 gram/dL 33.0-36. 0 L RED CELL DISTRIBUTION WIDTH (test code = RDW) 15.8 % 11.6-16. 2 N RED CELL DISTRIBUTION WIDTH SD (test code = RDW-SD) 51.8 fL 37 .0-51.0 H PLATELET COUNT (test code = PLT) 349 K/mm3 150-450 RESULT VERIFIED BY REPEAT ANALYSIS MEAN PLATELET VOLUME (test code = MPV) 9.8 fL 6.7-11.0 N IMMATURE GRANULOCYTE % (test code = IG%) 8.3 % 0.0-5.0 H "The appearance of immature granulocytes (myelocytes,pro-myelocytes, meta-myelocytes) in the peripheral blood ofnon- individuals can indicate a response toinfection, inflammation, or other stimulus to the bonemarrow" NUCLEATED RBC % (test code = NRBC%) 0.0 % 0-0 N NEUTROPHIL # (test code = NT#) 20.48 K/mm3 1.8-7.7 H IMMATURE GRANULOCYTE # (test code = IG#) 2.01 x10 3/uL 0-0.03 H LYMPHOCYTE # (test code = LY#) 0.43 K/mm3 1.0-5.0 L MONOCYTE # (test code = MO#) 1.06 K/mm3 0-0.8 H EOSINOPHIL # (test code = EO#) 0.04 K/mm3 0.0-0.5 N BASOPHIL # (test code = BA#) 0.16 K/mm3 0.0-0.2 N NUCLEATED RBC # (test code = NRBC#) 0.00 K/mm3 0.0-0.1 N MANUAL DIFF REQUIRED (test code = MDIFF) YES STAIN ACCEPTABILITY (test code = STN ACCEPTABLE) TOTAL CELLS COUNTED (test code = TCC) #CELLS SEGMENTED NEUTROPHILS (test code = SEG) % 39-69 LYMPHOCYTE (test code = LYMPH) % 25-55 MONOCYTE (test code = MON) % 0-10 EOSINOPHIL (test code = EOS) % 0.0-5.0 MORPHOLOGY COMMENT (test code = MOC) PLATELET ESTIMATE (test code = PLTEST) PLATELET MORPHOLOGY (test code = PLTMORPH) CBC W/MANUAL [id number] 05:43:00* Test Item Value Reference Range Interpretation Comments WHITE BLOOD CELL (test code = WBC) 24.2 K/mm3 4.5-12.5 H RED BLOOD CELL (test code = RBC) 3.67 mill/mm3 4.0-5.8 L HEMOGLOBIN (test code = HGB) 10.0 gram/dL 13.0-17.5 L HEMATOCRIT (test code = HCT) 33.2 % 42.0-52.0 L MEAN CELL VOLUME (test code = MCV) 90.5 fL 80-98 N MEAN CELL HGB (test code = MCH) 27.2 picogram 27.0-33.0 N MEAN CELL HGB CONCETRATION (test code = MCHC) 30.1 gram/dL 33.0-36. 0 L RED CELL DISTRIBUTION WIDTH (test code = RDW) 15.8 % 11.6-16. 2 N RED CELL DISTRIBUTION WIDTH SD (test code = RDW-SD) 51.8 fL 37 .0-51.0 H PLATELET COUNT (test code = PLT) 349 K/mm3 150-450 RESULT VERIFIED BY REPEAT ANALYSIS MEAN PLATELET VOLUME (test code = MPV) 9.8 fL 6.7-11.0 N IMMATURE GRANULOCYTE % (test code = IG%) 8.3 % 0.0-5.0 H "The appearance of immature granulocytes (myelocytes,pro-myelocytes, meta-myelocytes) in the peripheral blood ofnon- individuals can indicate a response toinfection, inflammation, or other stimulus to the bonemarrow" NUCLEATED RBC % (test code = NRBC%) 0.0 % 0-0 N NEUTROPHIL # (test code = NT#) 20.48 K/mm3 1.8-7.7 H IMMATURE GRANULOCYTE # (test code = IG#) 2.01 x10 3/uL 0-0.03 H LYMPHOCYTE # (test code = LY#) 0.43 K/mm3 1.0-5.0 L MONOCYTE # (test code = MO#) 1.06 K/mm3 0-0.8 H EOSINOPHIL # (test code = EO#) 0.04 K/mm3 0.0-0.5 N BASOPHIL # (test code = BA#) 0.16 K/mm3 0.0-0.2 N NUCLEATED RBC # (test code = NRBC#) 0.00 K/mm3 0.0-0.1 N MANUAL DIFF REQUIRED (test code = MDIFF) YES STAIN ACCEPTABILITY (test code = STN ACCEPTABLE) TOTAL CELLS COUNTED (test code = TCC) #CELLS SEGMENTED NEUTROPHILS (test code = SEG) % 39-69 LYMPHOCYTE (test code = LYMPH) % 25-55 MONOCYTE (test code = MON) % 0-10 MORPHOLOGY COMMENT (test code = MOC) PLATELET ESTIMATE (test code = PLTEST) PLATELET MORPHOLOGY (test code = PLTMORPH) CBC W/MANUAL [id number] 05:43:00* Test Item Value Reference Range Interpretation Comments WHITE BLOOD CELL (test code = WBC) 24.2 K/mm3 4.5-12.5 H RED BLOOD CELL (test code = RBC) 3.67 mill/mm3 4.0-5.8 L HEMOGLOBIN (test code = HGB) 10.0 gram/dL 13.0-17.5 L HEMATOCRIT (test code = HCT) 33.2 % 42.0-52.0 L MEAN CELL VOLUME (test code = MCV) 90.5 fL 80-98 N MEAN CELL HGB (test code = MCH) 27.2 picogram 27.0-33.0 N MEAN CELL HGB CONCETRATION (test code = MCHC) 30.1 gram/dL 33.0-36. 0 L RED CELL DISTRIBUTION WIDTH (test code = RDW) 15.8 % 11.6-16. 2 N RED CELL DISTRIBUTION WIDTH SD (test code = RDW-SD) 51.8 fL 37 .0-51.0 H PLATELET COUNT (test code = PLT) 349 K/mm3 150-450 RESULT VERIFIED BY REPEAT ANALYSIS MEAN PLATELET VOLUME (test code = MPV) 9.8 fL 6.7-11.0 N IMMATURE GRANULOCYTE % (test code = IG%) 8.3 % 0.0-5.0 H "The appearance of immature granulocytes (myelocytes,pro-myelocytes, meta-myelocytes) in the peripheral blood ofnon- individuals can indicate a response toinfection, inflammation, or other stimulus to the bonemarrow" NUCLEATED RBC % (test code = NRBC%) 0.0 % 0-0 N NEUTROPHIL # (test code = NT#) 20.48 K/mm3 1.8-7.7 H IMMATURE GRANULOCYTE # (test code = IG#) 2.01 x10 3/uL 0-0.03 H LYMPHOCYTE # (test code = LY#) 0.43 K/mm3 1.0-5.0 L MONOCYTE # (test code = MO#) 1.06 K/mm3 0-0.8 H EOSINOPHIL # (test code = EO#) 0.04 K/mm3 0.0-0.5 N BASOPHIL # (test code = BA#) 0.16 K/mm3 0.0-0.2 N NUCLEATED RBC # (test code = NRBC#) 0.00 K/mm3 0.0-0.1 N MANUAL DIFF REQUIRED (test code = MDIFF) YES STAIN ACCEPTABILITY (test code = STN ACCEPTABLE) TOTAL CELLS COUNTED (test code = TCC) #CELLS SEGMENTED NEUTROPHILS (test code = SEG) % 39-69 LYMPHOCYTE (test code = LYMPH) % 25-55 MONOCYTE (test code = MON) % 0-10 EOSINOPHIL (test code = EOS) % 0.0-5.0 CABOT RINGS (test code = CAB) MORPHOLOGY COMMENT (test code = MOC) PLATELET ESTIMATE (test code = PLTEST) PLATELET MORPHOLOGY (test code = PLTMORPH) [id number] 05:38:00* Test Item Value Reference Range Interpretation Comments GLUBED (test code = GLUBED) 248 mg/dL 74-106 H Performed by certified photogravure press operator at [facility] [id number] 21:54:00* Test Item Value Reference Range Interpretation Comments GLUBED (test code = GLUBED) 174 mg/dL 74-106 H Performed by certified photogravure press operator at [facility] [id number] 16:29:00* Test Item Value Reference Range Interpretation Comments GLUBED (test code = GLUBED) 145 mg/dL 74-106 H Performed by certified photogravure press operator at [facility] [id number] 12:06:00* Test Item Value Reference Range Interpretation Comments GLUBED (test code = GLUBED) 158 mg/dL 74-106 H Performed by certified photogravure press operator at [facility] CBC W/MANUAL [id number] 11:31:00* Test Item Value Reference Range Interpretation Comments WHITE BLOOD CELL (test code = WBC) 19.5 K/mm3 4.5-12.5 H RED BLOOD CELL (test code = RBC) 3.64 mill/mm3 4.0-5.8 L HEMOGLOBIN (test code = HGB) 9.7 gram/dL 13.0-17.5 L HEMATOCRIT (test code = HCT) 32.9 % 42.0-52.0 L MEAN CELL VOLUME (test code = MCV) 90.4 fL 80-98 N MEAN CELL HGB (test code = MCH) 26.6 picogram 27.0-33.0 L MEAN CELL HGB CONCETRATION (test code = MCHC) 29.5 gram/dL 33.0-36. 0 L RED CELL DISTRIBUTION WIDTH (test code = RDW) 15.8 % 11.6-16. 2 N RED CELL DISTRIBUTION WIDTH SD (test code = RDW-SD) 51.8 fL 37 .0-51.0 H PLATELET COUNT (test code = PLT) 277 K/mm3 150-450 N MEAN PLATELET VOLUME (test code = MPV) 10.3 fL 6.7-11.0 N IMMATURE GRANULOCYTE % (test code = IG%) 7.5 % 0.0-5.0 H "The appearance of immature granulocytes (myelocytes,pro-myelocytes, meta-myelocytes) in the peripheral blood ofnon- individuals can indicate a response toinfection, inflammation, or other stimulus to the bonemarrow" NUCLEATED RBC % (test code = NRBC%) 0.0 % 0-0 N NEUTROPHIL # (test code = NT#) 16.36 K/mm3 1.8-7.7 H IMMATURE GRANULOCYTE # (test code = IG#) 1.47 x10 3/uL 0-0.03 H LYMPHOCYTE # (test code = LY#) 0.63 K/mm3 1.0-5.0 L MONOCYTE # (test code = MO#) 0.93 K/mm3 0-0.8 H EOSINOPHIL # (test code = EO#) 0.03 K/mm3 0.0-0.5 N BASOPHIL # (test code = BA#) 0.10 K/mm3 0.0-0.2 N NUCLEATED RBC # (test code = NRBC#) 0.00 K/mm3 0.0-0.1 N MANUAL DIFF REQUIRED (test code = MDIFF) YES STAIN ACCEPTABILITY (test code = STN ACCEPTABLE) STAIN ACCEPTABLE TOTAL CELLS COUNTED (test code = TCC) 115 #CELLS SEGMENTED NEUTROPHILS (test code = SEG) 92.2 % 39-69 H BAND NEUTROPHIL (test code = BAND) 0 % 0-10 N LYMPHOCYTE (test code = LYMPH) 0 % 25-55 L REACTIVE LYMPH (test code = RELYMPH) 0 % MONOCYTE (test code = MON) 0 % 0-10 N EOSINOPHIL (test code = EOS) 0 % 0.0-5.0 N BASOPHIL (test code = BASO) 0.9 % 0-1.0 N METAMYELOCYTE (test code = META) 0 % 0-0 N MYELOCYTE (test code = MYELO) 6.9 % 0.0-0.0 H PROMYELOCYTE (test code = PROM) 0 % 0-0 N HYPOCHROMIA (test code = HYPO) 1+ POIKILOCYTOSIS (test code = POIK) 2+ ANISOCYTOSIS (test code = ANISO) 1+ ELLIPTOCYTES (test code = ELL) 1+ CRENATED CELLS (test code = CREN) 1+ PLATELET ESTIMATE (test code = PLTEST) ADEQUATE PLATELET MORPHOLOGY (test code = PLTMORPH) NORMAL IMMATURE FORMS (test code = IMMAT) 0 % 0-0 N PROTHROMBIN [id number] 08:42:00* Test Item Value Reference Range Interpretation Comments PROTHROMBIN TIME PATIENT (test code = PTP) 14.6 seconds 9.0-14.0 H INTERNATIONAL NORMAL RATIO (test code = INR) 1.2 0.8-1.2 N The therapeutic range for oral anticoagulant therapy formost indications is an international normalized ratio (INR)of between 2.0 and 3.0. The recommended therapeutic INRrange for various clinical situations is listed below: Clinical Situation INR range Pulmonary e mbolism treatment (2.0-3.0)Venous thrombosis treatmentVenous thrombosis prophylaxis (high risk surgery)Prevention of systemic embolism from: Acute myocardial infarction Valvular heart disease Atrial fibrillation Mechanical prosthetic heart valves (2.5-3.5) IS PATIENT ON ANTICOAGULANTS? YLIST ANTICOAGULANTS ASPIRIN PLAVIX THROMBOPLASTIN TIME [id number] 08:42:00* Test Item Value Reference Range Interpretation Comments THROMBOPLASTIN TIME PARTIAL (test code = PTT) 32.6 seconds 25.0-36. 5 N IS PATIENT ON ANTICOAGULANTS? YLIST ANTICOAGULANTS ASPIRIN PLAVIXBASIC METABOLIC [id number] 08:13:00* Test Item Value Reference Range Interpretation Comments SODIUM (test code = NA) 141 mmol/L 136-145 N POTASSIUM (test code = K) 4.9 mmol/L 3.5-5.1 N CHLORIDE (test code = CL) 110.0 mmol/L 98-107 H CARBON DIOXIDE (test code = CO2) 23.0 mmol/L 21-32 N ANION GAP (test code = GAP) 12.9 10-20 N GLUCOSE (test code = GLU) 93 mg/dL 74-106 N BLOOD UREA NITROGEN (test code = BUN) 24 mg/dL 7-18 H GLOMERULAR FILTRATION RATE (test code = GFR) > 60 mL/min >=60 Estimated GFR by using Modified MDRD formula.Chronic kidney disease is defined as either kidney damageor GFR <60 mL/min/1.73 m2 for >3 months. CREATININE (test code = CREAT) 0.80 mg/dL 0.7-1.3 N BUN/CREATININE RATIO (test code = BUN/CREA) 30.0 10-20 H CALCIUM (test code = CA) 7.5 mg/dL 8.5-10.1 L CBC W/MANUAL [id number] 08:01:00* Test Item Value Reference Range Interpretation Comments WHITE BLOOD CELL (test code = WBC) 19.5 K/mm3 4.5-12.5 H RED BLOOD CELL (test code = RBC) 3.64 mill/mm3 4.0-5.8 L HEMOGLOBIN (test code = HGB) 9.7 gram/dL 13.0-17.5 L HEMATOCRIT (test code = HCT) 32.9 % 42.0-52.0 L MEAN CELL VOLUME (test code = MCV) 90.4 fL 80-98 N MEAN CELL HGB (test code = MCH) 26.6 picogram 27.0-33.0 L MEAN CELL HGB CONCETRATION (test code = MCHC) 29.5 gram/dL 33.0-36. 0 L RED CELL DISTRIBUTION WIDTH (test code = RDW) 15.8 % 11.6-16. 2 N RED CELL DISTRIBUTION WIDTH SD (test code = RDW-SD) 51.8 fL 37 .0-51.0 H PLATELET COUNT (test code = PLT) 277 K/mm3 150-450 N MEAN PLATELET VOLUME (test code = MPV) 10.3 fL 6.7-11.0 N IMMATURE GRANULOCYTE % (test code = IG%) 7.5 % 0.0-5.0 H "The appearance of immature granulocytes (myelocytes,pro-myelocytes, meta-myelocytes) in the peripheral blood ofnon- individuals can indicate a response toinfection, inflammation, or other stimulus to the bonemarrow" NUCLEATED RBC % (test code = NRBC%) 0.0 % 0-0 N NEUTROPHIL # (test code = NT#) 16.36 K/mm3 1.8-7.7 H IMMATURE GRANULOCYTE # (test code = IG#) 1.47 x10 3/uL 0-0.03 H LYMPHOCYTE # (test code = LY#) 0.63 K/mm3 1.0-5.0 L MONOCYTE # (test code = MO#) 0.93 K/mm3 0-0.8 H EOSINOPHIL # (test code = EO#) 0.03 K/mm3 0.0-0.5 N BASOPHIL # (test code = BA#) 0.10 K/mm3 0.0-0.2 N NUCLEATED RBC # (test code = NRBC#) 0.00 K/mm3 0.0-0.1 N MANUAL DIFF REQUIRED (test code = MDIFF) YES STAIN ACCEPTABILITY (test code = STN ACCEPTABLE) TOTAL CELLS COUNTED (test code = TCC) #CELLS SEGMENTED NEUTROPHILS (test code = SEG) % 39-69 LYMPHOCYTE (test code = LYMPH) % 25-55 MONOCYTE (test code = MON) % 0-10 EOSINOPHIL (test code = EOS) % 0.0-5.0 CABOT RINGS (test code = CAB) MORPHOLOGY COMMENT (test code = MOC) PLATELET ESTIMATE (test code = PLTEST) PLATELET MORPHOLOGY (test code = PLTMORPH) CBC W/MANUAL [id number] 08:01:00* Test Item Value Reference Range Interpretation Comments WHITE BLOOD CELL (test code = WBC) 19.5 K/mm3 4.5-12.5 H RED BLOOD CELL (test code = RBC) 3.64 mill/mm3 4.0-5.8 L HEMOGLOBIN (test code = HGB) 9.7 gram/dL 13.0-17.5 L HEMATOCRIT (test code = HCT) 32.9 % 42.0-52.0 L MEAN CELL VOLUME (test code = MCV) 90.4 fL 80-98 N MEAN CELL HGB (test code = MCH) 26.6 picogram 27.0-33.0 L MEAN CELL HGB CONCETRATION (test code = MCHC) 29.5 gram/dL 33.0-36. 0 L RED CELL DISTRIBUTION WIDTH (test code = RDW) 15.8 % 11.6-16. 2 N RED CELL DISTRIBUTION WIDTH SD (test code = RDW-SD) 51.8 fL 37 .0-51.0 H PLATELET COUNT (test code = PLT) 277 K/mm3 150-450 N MEAN PLATELET VOLUME (test code = MPV) 10.3 fL 6.7-11.0 N IMMATURE GRANULOCYTE % (test code = IG%) 7.5 % 0.0-5.0 H "The appearance of immature granulocytes (myelocytes,pro-myelocytes, meta-myelocytes) in the peripheral blood ofnon- individuals can indicate a response toinfection, inflammation, or other stimulus to the bonemarrow" NUCLEATED RBC % (test code = NRBC%) 0.0 % 0-0 N NEUTROPHIL # (test code = NT#) 16.36 K/mm3 1.8-7.7 H IMMATURE GRANULOCYTE # (test code = IG#) 1.47 x10 3/uL 0-0.03 H LYMPHOCYTE # (test code = LY#) 0.63 K/mm3 1.0-5.0 L MONOCYTE # (test code = MO#) 0.93 K/mm3 0-0.8 H EOSINOPHIL # (test code = EO#) 0.03 K/mm3 0.0-0.5 N BASOPHIL # (test code = BA#) 0.10 K/mm3 0.0-0.2 N NUCLEATED RBC # (test code = NRBC#) 0.00 K/mm3 0.0-0.1 N MANUAL DIFF REQUIRED (test code = MDIFF) YES STAIN ACCEPTABILITY (test code = STN ACCEPTABLE) TOTAL CELLS COUNTED (test code = TCC) #CELLS SEGMENTED NEUTROPHILS (test code = SEG) % 39-69 LYMPHOCYTE (test code = LYMPH) % 25-55 MONOCYTE (test code = MON) % 0-10 EOSINOPHIL (test code = EOS) % 0.0-5.0 CABOT RINGS (test code = CAB) MORPHOLOGY COMMENT (test code = MOC) PLATELET ESTIMATE (test code = PLTEST) PLATELET MORPHOLOGY (test code = PLTMORPH) CBC W/MANUAL [id number] 08:01:00* Test Item Value Reference Range Interpretation Comments WHITE BLOOD CELL (test code = WBC) 19.5 K/mm3 4.5-12.5 H RED BLOOD CELL (test code = RBC) 3.64 mill/mm3 4.0-5.8 L HEMOGLOBIN (test code = HGB) 9.7 gram/dL 13.0-17.5 L HEMATOCRIT (test code = HCT) 32.9 % 42.0-52.0 L MEAN CELL VOLUME (test code = MCV) 90.4 fL 80-98 N MEAN CELL HGB (test code = MCH) 26.6 picogram 27.0-33.0 L MEAN CELL HGB CONCETRATION (test code = MCHC) 29.5 gram/dL 33.0-36. 0 L RED CELL DISTRIBUTION WIDTH (test code = RDW) 15.8 % 11.6-16. 2 N RED CELL DISTRIBUTION WIDTH SD (test code = RDW-SD) 51.8 fL 37 .0-51.0 H PLATELET COUNT (test code = PLT) 277 K/mm3 150-450 N MEAN PLATELET VOLUME (test code = MPV) 10.3 fL 6.7-11.0 N IMMATURE GRANULOCYTE % (test code = IG%) 7.5 % 0.0-5.0 H "The appearance of immature granulocytes (myelocytes,pro-myelocytes, meta-myelocytes) in the peripheral blood ofnon- individuals can indicate a response toinfection, inflammation, or other stimulus to the bonemarrow" NUCLEATED RBC % (test code = NRBC%) 0.0 % 0-0 N NEUTROPHIL # (test code = NT#) 16.36 K/mm3 1.8-7.7 H IMMATURE GRANULOCYTE # (test code = IG#) 1.47 x10 3/uL 0-0.03 H LYMPHOCYTE # (test code = LY#) 0.63 K/mm3 1.0-5.0 L MONOCYTE # (test code = MO#) 0.93 K/mm3 0-0.8 H EOSINOPHIL # (test code = EO#) 0.03 K/mm3 0.0-0.5 N BASOPHIL # (test code = BA#) 0.10 K/mm3 0.0-0.2 N NUCLEATED RBC # (test code = NRBC#) 0.00 K/mm3 0.0-0.1 N MANUAL DIFF REQUIRED (test code = MDIFF) YES STAIN ACCEPTABILITY (test code = STN ACCEPTABLE) TOTAL CELLS COUNTED (test code = TCC) #CELLS SEGMENTED NEUTROPHILS (test code = SEG) % 39-69 LYMPHOCYTE (test code = LYMPH) % 25-55 MONOCYTE (test code = MON) % 0-10 EOSINOPHIL (test code = EOS) % 0.0-5.0 MORPHOLOGY COMMENT (test code = MOC) PLATELET ESTIMATE (test code = PLTEST) PLATELET MORPHOLOGY (test code = PLTMORPH) CBC W/MANUAL [id number] 08:01:00* Test Item Value Reference Range Interpretation Comments WHITE BLOOD CELL (test code = WBC) 19.5 K/mm3 4.5-12.5 H RED BLOOD CELL (test code = RBC) 3.64 mill/mm3 4.0-5.8 L HEMOGLOBIN (test code = HGB) 9.7 gram/dL 13.0-17.5 L HEMATOCRIT (test code = HCT) 32.9 % 42.0-52.0 L MEAN CELL VOLUME (test code = MCV) 90.4 fL 80-98 N MEAN CELL HGB (test code = MCH) 26.6 picogram 27.0-33.0 L MEAN CELL HGB CONCETRATION (test code = MCHC) 29.5 gram/dL 33.0-36. 0 L RED CELL DISTRIBUTION WIDTH (test code = RDW) 15.8 % 11.6-16. 2 N RED CELL DISTRIBUTION WIDTH SD (test code = RDW-SD) 51.8 fL 37 .0-51.0 H PLATELET COUNT (test code = PLT) 277 K/mm3 150-450 N MEAN PLATELET VOLUME (test code = MPV) 10.3 fL 6.7-11.0 N IMMATURE GRANULOCYTE % (test code = IG%) 7.5 % 0.0-5.0 H "The appearance of immature granulocytes (myelocytes,pro-myelocytes, meta-myelocytes) in the peripheral blood ofnon- individuals can indicate a response toinfection, inflammation, or other stimulus to the bonemarrow" NUCLEATED RBC % (test code = NRBC%) 0.0 % 0-0 N NEUTROPHIL # (test code = NT#) 16.36 K/mm3 1.8-7.7 H IMMATURE GRANULOCYTE # (test code = IG#) 1.47 x10 3/uL 0-0.03 H LYMPHOCYTE # (test code = LY#) 0.63 K/mm3 1.0-5.0 L MONOCYTE # (test code = MO#) 0.93 K/mm3 0-0.8 H EOSINOPHIL # (test code = EO#) 0.03 K/mm3 0.0-0.5 N BASOPHIL # (test code = BA#) 0.10 K/mm3 0.0-0.2 N NUCLEATED RBC # (test code = NRBC#) 0.00 K/mm3 0.0-0.1 N MANUAL DIFF REQUIRED (test code = MDIFF) YES STAIN ACCEPTABILITY (test code = STN ACCEPTABLE) TOTAL CELLS COUNTED (test code = TCC) #CELLS SEGMENTED NEUTROPHILS (test code = SEG) % 39-69 LYMPHOCYTE (test code = LYMPH) % 25-55 MONOCYTE (test code = MON) % 0-10 MORPHOLOGY COMMENT (test code = MOC) PLATELET ESTIMATE (test code = PLTEST) PLATELET MORPHOLOGY (test code = PLTMORPH) CBC W/MANUAL [id number] 08:01:00* Test Item Value Reference Range Interpretation Comments WHITE BLOOD CELL (test code = WBC) 19.5 K/mm3 4.5-12.5 H RED BLOOD CELL (test code = RBC) 3.64 mill/mm3 4.0-5.8 L HEMOGLOBIN (test code = HGB) 9.7 gram/dL 13.0-17.5 L HEMATOCRIT (test code = HCT) 32.9 % 42.0-52.0 L MEAN CELL VOLUME (test code = MCV) 90.4 fL 80-98 N MEAN CELL HGB (test code = MCH) 26.6 picogram 27.0-33.0 L MEAN CELL HGB CONCETRATION (test code = MCHC) 29.5 gram/dL 33.0-36. 0 L RED CELL DISTRIBUTION WIDTH (test code = RDW) 15.8 % 11.6-16. 2 N RED CELL DISTRIBUTION WIDTH SD (test code = RDW-SD) 51.8 fL 37 .0-51.0 H PLATELET COUNT (test code = PLT) 277 K/mm3 150-450 N MEAN PLATELET VOLUME (test code = MPV) 10.3 fL 6.7-11.0 N IMMATURE GRANULOCYTE % (test code = IG%) 7.5 % 0.0-5.0 H "The appearance of immature granulocytes (myelocytes,pro-myelocytes, meta-myelocytes) in the peripheral blood ofnon- individuals can indicate a response toinfection, inflammation, or other stimulus to the bonemarrow" NUCLEATED RBC % (test code = NRBC%) 0.0 % 0-0 N NEUTROPHIL # (test code = NT#) 16.36 K/mm3 1.8-7.7 H IMMATURE GRANULOCYTE # (test code = IG#) 1.47 x10 3/uL 0-0.03 H LYMPHOCYTE # (test code = LY#) 0.63 K/mm3 1.0-5.0 L MONOCYTE # (test code = MO#) 0.93 K/mm3 0-0.8 H EOSINOPHIL # (test code = EO#) 0.03 K/mm3 0.0-0.5 N BASOPHIL # (test code = BA#) 0.10 K/mm3 0.0-0.2 N NUCLEATED RBC # (test code = NRBC#) 0.00 K/mm3 0.0-0.1 N MANUAL DIFF REQUIRED (test code = MDIFF) YES STAIN ACCEPTABILITY (test code = STN ACCEPTABLE) TOTAL CELLS COUNTED (test code = TCC) #CELLS SEGMENTED NEUTROPHILS (test code = SEG) % 39-69 LYMPHOCYTE (test code = LYMPH) % 25-55 MONOCYTE (test code = MON) % 0-10 EOSINOPHIL (test code = EOS) % 0.0-5.0 CABOT RINGS (test code = CAB) MORPHOLOGY COMMENT (test code = MOC) PLATELET ESTIMATE (test code = PLTEST) PLATELET MORPHOLOGY (test code = PLTMORPH) BASIC METABOLIC [id number] 07:58:00* Test Item Value Reference Range Interpretation Comments SODIUM (test code = NA) 141 mmol/L 136-145 N POTASSIUM (test code = K) 4.9 mmol/L 3.5-5.1 N CHLORIDE (test code = CL) 110.0 mmol/L 98-107 H CARBON DIOXIDE (test code = CO2) mmol/L 21-32 ANION GAP (test code = GAP) 10-20 GLUCOSE (test code = GLU) mg/dL 74-106 BLOOD UREA NITROGEN (test code = BUN) mg/dL 7-18 GLOMERULAR FILTRATION RATE (test code = GFR) mL/min >=60 CREATININE (test code = CREAT) mg/dL 0.7-1.3 BUN/CREATININE RATIO (test code = BUN/CREA) 10-20 CALCIUM (test code = CA) mg/dL 8.5-10.1 [id number] 05:53:00* Test Item Value Reference Range Interpretation Comments GLUBED (test code = GLUBED) 69 mg/dL 74-106 L Performed by certified photogravure press operator at [facility] [id number] 15:55:00* Test Item Value Reference Range Interpretation Comments GLUBED (test code = GLUBED) 136 mg/dL 74-106 H Performed by certified photogravure press operator at [facility] [id number] 07:08:00* Test Item Value Reference Range Interpretation Comments GLUBED (test code = GLUBED) 150 mg/dL 74-106 H Performed [facility] certified phot[facility]ravure press [facility]~ [id number] 17:55:00* Test Item Value Reference Range Interpretation Comments GLUBED (test code = GLUBED) 139 mg/dL 74-106 H Performed by certified photogravure press operator at [facility] [id number] 13:39:00* Test Item Value Reference Range Interpretation Comments GLUBED (test code = GLUBED) 131 mg/dL 74-106 H Performed by certified photogravure press operator at [facility] BASIC METABOLIC [id number] 12:42:00* Test Item Value Reference Range Interpretation Comments SODIUM (test code = NA) 137 mmol/L 136-145 N POTASSIUM (test code = K) 4.9 mmol/L 3.5-5.1 N CHLORIDE (test code = CL) 108.0 mmol/L 98-107 H CARBON DIOXIDE (test code = CO2) 23.0 mmol/L 21-32 N ANION GAP (test code = GAP) 10.9 10-20 N GLUCOSE (test code = GLU) 144 mg/dL 74-106 H BLOOD UREA NITROGEN (test code = BUN) 36 mg/dL 7-18 H GLOMERULAR FILTRATION RATE (test code = GFR) > 60 mL/min >=60 Estimated GFR by using Modified MDRD formula.Chronic kidney disease is defined as either kidney damageor GFR <60 mL/min/1.73 m2 for >3 months. CREATININE (test code = CREAT) 0.90 mg/dL 0.7-1.3 N BUN/CREATININE RATIO (test code = BUN/CREA) 40.0 10-20 H CALCIUM (test code = CA) 7.5 mg/dL 8.5-10.1 L [id number] 05:28:00* Test Item Value Reference Range Interpretation Comments GLUBED (test code = GLUBED) 150 mg/dL 74-106 H Performed by certified photogravure press operator at [facility] [id number] 21:08:00* Test Item Value Reference Range Interpretation Comments GLUBED (test code = GLUBED) 157 mg/dL 74-106 H Performed by certified photogravure press operator at [facility] [id number] 17:33:00* Test Item Value Reference Range Interpretation Comments GLUBED (test code = GLUBED) 188 mg/dL 74-106 H Performed by certified photogravure press operator at [facility] [id number] 17:05:00* Test Item Value Reference Range Interpretation Comments GLUBED (test code = GLUBED) 254 mg/dL 74-106 H Performed by certified photogravure press operator at [facility] [id number] 15:09:00* Test Item Value Reference Range Interpretation Comments GLUBED (test code = GLUBED) 155 mg/dL 74-106 H Performed by certified photogravure press operator at [facility] [id number] 05:19:00* Test Item Value Reference Range Interpretation Comments GLUBED (test code = GLUBED) 212 mg/dL 74-106 H Performed by certified photogravure press operator at [facility] [id number] 20:56:00* Test Item Value Reference Range Interpretation Comments GLUBED (test code = GLUBED) 135 mg/dL 74-106 H Performed by certified photogravure press operator at [facility] [id number] 11:58:00* Test Item Value Reference Range Interpretation Comments GLUBED (test code = GLUBED) 210 mg/dL 74-106 H Performed by certified photogravure press operator at [facility] CBC W/MANUAL [id number] 09:44:00* Test Item Value Reference Range Interpretation Comments WHITE BLOOD CELL (test code = WBC) 27.4 K/mm3 4.5-12.5 H RED BLOOD CELL (test code = RBC) 4.24 mill/mm3 4.0-5.8 N HEMOGLOBIN (test code = HGB) 11.4 gram/dL 13.0-17.5 L HEMATOCRIT (test code = HCT) 37.2 % 42.0-52.0 L MEAN CELL VOLUME (test code = MCV) 87.7 fL 80-98 N MEAN CELL HGB (test code = MCH) 26.9 picogram 27.0-33.0 L MEAN CELL HGB CONCETRATION (test code = MCHC) 30.6 gram/dL 33.0-36. 0 L RED CELL DISTRIBUTION WIDTH (test code = RDW) 15.5 % 11.6-16. 2 N RED CELL DISTRIBUTION WIDTH SD (test code = RDW-SD) 49.1 fL 37 .0-51.0 N PLATELET COUNT (test code = PLT) 252 K/mm3 150-450 N MEAN PLATELET VOLUME (test code = MPV) 10.4 fL 6.7-11.0 N IMMATURE GRANULOCYTE % (test code = IG%) 4.0 % 0.0-5.0 N NUCLEATED RBC % (test code = NRBC%) 0.0 % 0-0 N NEUTROPHIL # (test code = NT#) 25.08 K/mm3 1.8-7.7 H IMMATURE GRANULOCYTE # (test code = IG#) 1.09 x10 3/uL 0-0.03 H LYMPHOCYTE # (test code = LY#) 0.45 K/mm3 1.0-5.0 L MONOCYTE # (test code = MO#) 0.66 K/mm3 0-0.8 N EOSINOPHIL # (test code = EO#) 0.04 K/mm3 0.0-0.5 N BASOPHIL # (test code = BA#) 0.08 K/mm3 0.0-0.2 N NUCLEATED RBC # (test code = NRBC#) 0.00 K/mm3 0.0-0.1 N MANUAL DIFF REQUIRED (test code = MDIFF) YES STAIN ACCEPTABILITY (test code = STN ACCEPTABLE) STAIN ACCEPTABLE TOTAL CELLS COUNTED (test code = TCC) 114 #CELLS SEGMENTED NEUTROPHILS (test code = SEG) 97.4 % 39-69 H BAND NEUTROPHIL (test code = BAND) 0 % 0-10 N LYMPHOCYTE (test code = LYMPH) 0.9 % 25-55 L REACTIVE LYMPH (test code = RELYMPH) 0 % MONOCYTE (test code = MON) 1.7 % 0-10 N EOSINOPHIL (test code = EOS) 0 % 0.0-5.0 N BASOPHIL (test code = BASO) 0 % 0-1.0 N METAMYELOCYTE (test code = META) 0 % 0-0 N MYELOCYTE (test code = MYELO) 0 % 0.0-0.0 N PROMYELOCYTE (test code = PROM) 0 % 0-0 N POIKILOCYTOSIS (test code = POIK) 1+ ANISOCYTOSIS (test code = ANISO) 1+ MICROCYTOSIS (test code = MICR) 1+ JOSELIN CELLS (test code = JOSELIN) 1+ NONE PLATELET ESTIMATE (test code = PLTEST) ADEQUATE PLATELET MORPHOLOGY (test code = PLTMORPH) NORMAL IMMATURE FORMS (test code = IMMAT) 0 % 0-0 N CBC W/MANUAL [id number] 09:02:00* Test Item Value Reference Range Interpretation Comments WHITE BLOOD CELL (test code = WBC) 27.4 K/mm3 4.5-12.5 H RED BLOOD CELL (test code = RBC) 4.24 mill/mm3 4.0-5.8 N HEMOGLOBIN (test code = HGB) 11.4 gram/dL 13.0-17.5 L HEMATOCRIT (test code = HCT) 37.2 % 42.0-52.0 L MEAN CELL VOLUME (test code = MCV) 87.7 fL 80-98 N MEAN CELL HGB (test code = MCH) 26.9 picogram 27.0-33.0 L MEAN CELL HGB CONCETRATION (test code = MCHC) 30.6 gram/dL 33.0-36. 0 L RED CELL DISTRIBUTION WIDTH (test code = RDW) 15.5 % 11.6-16. 2 N RED CELL DISTRIBUTION WIDTH SD (test code = RDW-SD) 49.1 fL 37 .0-51.0 N PLATELET COUNT (test code = PLT) 252 K/mm3 150-450 N MEAN PLATELET VOLUME (test code = MPV) 10.4 fL 6.7-11.0 N IMMATURE GRANULOCYTE % (test code = IG%) 4.0 % 0.0-5.0 N NUCLEATED RBC % (test code = NRBC%) 0.0 % 0-0 N NEUTROPHIL # (test code = NT#) 25.08 K/mm3 1.8-7.7 H IMMATURE GRANULOCYTE # (test code = IG#) 1.09 x10 3/uL 0-0.03 H LYMPHOCYTE # (test code = LY#) 0.45 K/mm3 1.0-5.0 L MONOCYTE # (test code = MO#) 0.66 K/mm3 0-0.8 N EOSINOPHIL # (test code = EO#) 0.04 K/mm3 0.0-0.5 N BASOPHIL # (test code = BA#) 0.08 K/mm3 0.0-0.2 N NUCLEATED RBC # (test code = NRBC#) 0.00 K/mm3 0.0-0.1 N MANUAL DIFF REQUIRED (test code = MDIFF) YES STAIN ACCEPTABILITY (test code = STN ACCEPTABLE) TOTAL CELLS COUNTED (test code = TCC) #CELLS SEGMENTED NEUTROPHILS (test code = SEG) % 39-69 LYMPHOCYTE (test code = LYMPH) % 25-55 MONOCYTE (test code = MON) % 0-10 EOSINOPHIL (test code = EOS) % 0.0-5.0 CABOT RINGS (test code = CAB) MORPHOLOGY COMMENT (test code = MOC) PLATELET ESTIMATE (test code = PLTEST) PLATELET MORPHOLOGY (test code = PLTMORPH) CBC W/MANUAL [id number] 09:02:00* Test Item Value Reference Range Interpretation Comments WHITE BLOOD CELL (test code = WBC) 27.4 K/mm3 4.5-12.5 H RED BLOOD CELL (test code = RBC) 4.24 mill/mm3 4.0-5.8 N HEMOGLOBIN (test code = HGB) 11.4 gram/dL 13.0-17.5 L HEMATOCRIT (test code = HCT) 37.2 % 42.0-52.0 L MEAN CELL VOLUME (test code = MCV) 87.7 fL 80-98 N MEAN CELL HGB (test code = MCH) 26.9 picogram 27.0-33.0 L MEAN CELL HGB CONCETRATION (test code = MCHC) 30.6 gram/dL 33.0-36. 0 L RED CELL DISTRIBUTION WIDTH (test code = RDW) 15.5 % 11.6-16. 2 N RED CELL DISTRIBUTION WIDTH SD (test code = RDW-SD) 49.1 fL 37 .0-51.0 N PLATELET COUNT (test code = PLT) 252 K/mm3 150-450 N MEAN PLATELET VOLUME (test code = MPV) 10.4 fL 6.7-11.0 N IMMATURE GRANULOCYTE % (test code = IG%) 4.0 % 0.0-5.0 N NUCLEATED RBC % (test code = NRBC%) 0.0 % 0-0 N NEUTROPHIL # (test code = NT#) 25.08 K/mm3 1.8-7.7 H IMMATURE GRANULOCYTE # (test code = IG#) 1.09 x10 3/uL 0-0.03 H LYMPHOCYTE # (test code = LY#) 0.45 K/mm3 1.0-5.0 L MONOCYTE # (test code = MO#) 0.66 K/mm3 0-0.8 N EOSINOPHIL # (test code = EO#) 0.04 K/mm3 0.0-0.5 N BASOPHIL # (test code = BA#) 0.08 K/mm3 0.0-0.2 N NUCLEATED RBC # (test code = NRBC#) 0.00 K/mm3 0.0-0.1 N MANUAL DIFF REQUIRED (test code = MDIFF) YES STAIN ACCEPTABILITY (test code = STN ACCEPTABLE) TOTAL CELLS COUNTED (test code = TCC) #CELLS SEGMENTED NEUTROPHILS (test code = SEG) % 39-69 LYMPHOCYTE (test code = LYMPH) % 25-55 MONOCYTE (test code = MON) % 0-10 EOSINOPHIL (test code = EOS) % 0.0-5.0 CABOT RINGS (test code = CAB) MORPHOLOGY COMMENT (test code = MOC) PLATELET ESTIMATE (test code = PLTEST) PLATELET MORPHOLOGY (test code = PLTMORPH) CBC W/MANUAL [id number] 09:02:00* Test Item Value Reference Range Interpretation Comments WHITE BLOOD CELL (test code = WBC) 27.4 K/mm3 4.5-12.5 H RED BLOOD CELL (test code = RBC) 4.24 mill/mm3 4.0-5.8 N HEMOGLOBIN (test code = HGB) 11.4 gram/dL 13.0-17.5 L HEMATOCRIT (test code = HCT) 37.2 % 42.0-52.0 L MEAN CELL VOLUME (test code = MCV) 87.7 fL 80-98 N MEAN CELL HGB (test code = MCH) 26.9 picogram 27.0-33.0 L MEAN CELL HGB CONCETRATION (test code = MCHC) 30.6 gram/dL 33.0-36. 0 L RED CELL DISTRIBUTION WIDTH (test code = RDW) 15.5 % 11.6-16. 2 N RED CELL DISTRIBUTION WIDTH SD (test code = RDW-SD) 49.1 fL 37 .0-51.0 N PLATELET COUNT (test code = PLT) 252 K/mm3 150-450 N MEAN PLATELET VOLUME (test code = MPV) 10.4 fL 6.7-11.0 N IMMATURE GRANULOCYTE % (test code = IG%) 4.0 % 0.0-5.0 N NUCLEATED RBC % (test code = NRBC%) 0.0 % 0-0 N NEUTROPHIL # (test code = NT#) 25.08 K/mm3 1.8-7.7 H IMMATURE GRANULOCYTE # (test code = IG#) 1.09 x10 3/uL 0-0.03 H LYMPHOCYTE # (test code = LY#) 0.45 K/mm3 1.0-5.0 L MONOCYTE # (test code = MO#) 0.66 K/mm3 0-0.8 N EOSINOPHIL # (test code = EO#) 0.04 K/mm3 0.0-0.5 N BASOPHIL # (test code = BA#) 0.08 K/mm3 0.0-0.2 N NUCLEATED RBC # (test code = NRBC#) 0.00 K/mm3 0.0-0.1 N MANUAL DIFF REQUIRED (test code = MDIFF) YES STAIN ACCEPTABILITY (test code = STN ACCEPTABLE) TOTAL CELLS COUNTED (test code = TCC) #CELLS SEGMENTED NEUTROPHILS (test code = SEG) % 39-69 LYMPHOCYTE (test code = LYMPH) % 25-55 MONOCYTE (test code = MON) % 0-10 EOSINOPHIL (test code = EOS) % 0.0-5.0 MORPHOLOGY COMMENT (test code = MOC) PLATELET ESTIMATE (test code = PLTEST) PLATELET MORPHOLOGY (test code = PLTMORPH) CBC W/MANUAL [id number] 09:02:00* Test Item Value Reference Range Interpretation Comments WHITE BLOOD CELL (test code = WBC) 27.4 K/mm3 4.5-12.5 H RED BLOOD CELL (test code = RBC) 4.24 mill/mm3 4.0-5.8 N HEMOGLOBIN (test code = HGB) 11.4 gram/dL 13.0-17.5 L HEMATOCRIT (test code = HCT) 37.2 % 42.0-52.0 L MEAN CELL VOLUME (test code = MCV) 87.7 fL 80-98 N MEAN CELL HGB (test code = MCH) 26.9 picogram 27.0-33.0 L MEAN CELL HGB CONCETRATION (test code = MCHC) 30.6 gram/dL 33.0-36. 0 L RED CELL DISTRIBUTION WIDTH (test code = RDW) 15.5 % 11.6-16. 2 N RED CELL DISTRIBUTION WIDTH SD (test code = RDW-SD) 49.1 fL 37 .0-51.0 N PLATELET COUNT (test code = PLT) 252 K/mm3 150-450 N MEAN PLATELET VOLUME (test code = MPV) 10.4 fL 6.7-11.0 N IMMATURE GRANULOCYTE % (test code = IG%) 4.0 % 0.0-5.0 N NUCLEATED RBC % (test code = NRBC%) 0.0 % 0-0 N NEUTROPHIL # (test code = NT#) 25.08 K/mm3 1.8-7.7 H IMMATURE GRANULOCYTE # (test code = IG#) 1.09 x10 3/uL 0-0.03 H LYMPHOCYTE # (test code = LY#) 0.45 K/mm3 1.0-5.0 L MONOCYTE # (test code = MO#) 0.66 K/mm3 0-0.8 N EOSINOPHIL # (test code = EO#) 0.04 K/mm3 0.0-0.5 N BASOPHIL # (test code = BA#) 0.08 K/mm3 0.0-0.2 N NUCLEATED RBC # (test code = NRBC#) 0.00 K/mm3 0.0-0.1 N MANUAL DIFF REQUIRED (test code = MDIFF) YES STAIN ACCEPTABILITY (test code = STN ACCEPTABLE) TOTAL CELLS COUNTED (test code = TCC) #CELLS SEGMENTED NEUTROPHILS (test code = SEG) % 39-69 LYMPHOCYTE (test code = LYMPH) % 25-55 MONOCYTE (test code = MON) % 0-10 MORPHOLOGY COMMENT (test code = MOC) PLATELET ESTIMATE (test code = PLTEST) PLATELET MORPHOLOGY (test code = PLTMORPH) CBC W/MANUAL [id number] 09:02:00* Test Item Value Reference Range Interpretation Comments WHITE BLOOD CELL (test code = WBC) 27.4 K/mm3 4.5-12.5 H RED BLOOD CELL (test code = RBC) 4.24 mill/mm3 4.0-5.8 N HEMOGLOBIN (test code = HGB) 11.4 gram/dL 13.0-17.5 L HEMATOCRIT (test code = HCT) 37.2 % 42.0-52.0 L MEAN CELL VOLUME (test code = MCV) 87.7 fL 80-98 N MEAN CELL HGB (test code = MCH) 26.9 picogram 27.0-33.0 L MEAN CELL HGB CONCETRATION (test code = MCHC) 30.6 gram/dL 33.0-36. 0 L RED CELL DISTRIBUTION WIDTH (test code = RDW) 15.5 % 11.6-16. 2 N RED CELL DISTRIBUTION WIDTH SD (test code = RDW-SD) 49.1 fL 37 .0-51.0 N PLATELET COUNT (test code = PLT) 252 K/mm3 150-450 N MEAN PLATELET VOLUME (test code = MPV) 10.4 fL 6.7-11.0 N IMMATURE GRANULOCYTE % (test code = IG%) 4.0 % 0.0-5.0 N NUCLEATED RBC % (test code = NRBC%) 0.0 % 0-0 N NEUTROPHIL # (test code = NT#) 25.08 K/mm3 1.8-7.7 H IMMATURE GRANULOCYTE # (test code = IG#) 1.09 x10 3/uL 0-0.03 H LYMPHOCYTE # (test code = LY#) 0.45 K/mm3 1.0-5.0 L MONOCYTE # (test code = MO#) 0.66 K/mm3 0-0.8 N EOSINOPHIL # (test code = EO#) 0.04 K/mm3 0.0-0.5 N BASOPHIL # (test code = BA#) 0.08 K/mm3 0.0-0.2 N NUCLEATED RBC # (test code = NRBC#) 0.00 K/mm3 0.0-0.1 N MANUAL DIFF REQUIRED (test code = MDIFF) YES STAIN ACCEPTABILITY (test code = STN ACCEPTABLE) TOTAL CELLS COUNTED (test code = TCC) #CELLS SEGMENTED NEUTROPHILS (test code = SEG) % 39-69 LYMPHOCYTE (test code = LYMPH) % 25-55 MONOCYTE (test code = MON) % 0-10 EOSINOPHIL (test code = EOS) % 0.0-5.0 CABOT RINGS (test code = CAB) MORPHOLOGY COMMENT (test code = MOC) PLATELET ESTIMATE (test code = PLTEST) PLATELET MORPHOLOGY (test code = PLTMORPH) BASIC METABOLIC [id number] 06:16:00* Test Item Value Reference Range Interpretation Comments SODIUM (test code = NA) 140 mmol/L 136-145 N POTASSIUM (test code = K) 4.0 mmol/L 3.5-5.1 N CHLORIDE (test code = CL) 107.0 mmol/L 98-107 N CARBON DIOXIDE (test code = CO2) 25.0 mmol/L 21-32 N ANION GAP (test code = GAP) 12.0 10-20 N GLUCOSE (test code = GLU) 87 mg/dL 74-106 N BLOOD UREA NITROGEN (test code = BUN) 38 mg/dL 7-18 H RESULT VERIFIED BY REPEAT ANALYSIS GLOMERULAR FILTRATION RATE (test code = GFR) > 60 mL/min >=60 Estimated GFR by using Modified MDRD formula.Chronic kidney disease is defined as either kidney damageor GFR <60 mL/min/1.73 m2 for >3 months. CREATININE (test code = CREAT) 1.00 mg/dL 0.7-1.3 N BUN/CREATININE RATIO (test code = BUN/CREA) 38.0 10-20 H CALCIUM (test code = CA) 7.7 mg/dL 8.5-10.1 L [id number] 05:11:00* Test Item Value Reference Range Interpretation Comments GLUBED (test code = GLUBED) 84 mg/dL 74-106 N Performed by certified photogravure press operator at [facility] BASIC METABOLIC [id number] 13:22:00* Test Item Value Reference Range Interpretation Comments SODIUM (test code = NA) 139 mmol/L 136-145 N POTASSIUM (test code = K) 4.3 mmol/L 3.5-5.1 N CHLORIDE (test code = CL) 107.0 mmol/L 98-107 N CARBON DIOXIDE (test code = CO2) 23.0 mmol/L 21-32 N ANION GAP (test code = GAP) 13.3 10-20 N GLUCOSE (test code = GLU) 171 mg/dL 74-106 H BLOOD UREA NITROGEN (test code = BUN) 58 mg/dL 7-18 H GLOMERULAR FILTRATION RATE (test code = GFR) 45 mL/min >=60 Estimated GFR by using Modified MDRD formula.Chronic kidney disease is defined as either kidney damageor GFR <60 mL/min/1.73 m2 for >3 months. CREATININE (test code = CREAT) 1.50 mg/dL 0.7-1.3 H BUN/CREATININE RATIO (test code = BUN/CREA) 38.7 10-20 H CALCIUM (test code = CA) 7.6 mg/dL 8.5-10.1 L [id number] 23:06:00* Test Item Value Reference Range Interpretation Comments GLUBED (test code = GLUBED) 148 mg/dL 74-106 H Performed by certified photogravure press operator at [facility] [id number] 16:11:00* Test Item Value Reference Range Interpretation Comments GLUBED (test code = GLUBED) 202 mg/dL 74-106 H Performed by certified photogravure press operator at [facility] CBC W/MANUAL [id number] 12:49:00* Test Item Value Reference Range Interpretation Comments WHITE BLOOD CELL (test code = WBC) 34.5 K/mm3 4.5-12.5 H RED BLOOD CELL (test code = RBC) 4.34 mill/mm3 4.0-5.8 N HEMOGLOBIN (test code = HGB) 11.7 gram/dL 13.0-17.5 L HEMATOCRIT (test code = HCT) 39.5 % 42.0-52.0 L MEAN CELL VOLUME (test code = MCV) 91.0 fL 80-98 N MEAN CELL HGB (test code = MCH) 27.0 picogram 27.0-33.0 N MEAN CELL HGB CONCETRATION (test code = MCHC) 29.6 gram/dL 33.0-36. 0 L RED CELL DISTRIBUTION WIDTH (test code = RDW) 15.3 % 11.6-16. 2 N RED CELL DISTRIBUTION WIDTH SD (test code = RDW-SD) 50.7 fL 37 .0-51.0 N PLATELET COUNT (test code = PLT) 277 K/mm3 150-450 RESULT VERIFIED BY REPEAT ANALYSIS MEAN PLATELET VOLUME (test code = MPV) 10.4 fL 6.7-11.0 N IMMATURE GRANULOCYTE % (test code = IG%) 3.8 % 0.0-5.0 N NUCLEATED RBC % (test code = NRBC%) 0.0 % 0-0 N NEUTROPHIL # (test code = NT#) 32.18 K/mm3 1.8-7.7 H IMMATURE GRANULOCYTE # (test code = IG#) 1.31 x10 3/uL 0-0.03 H LYMPHOCYTE # (test code = LY#) 0.23 K/mm3 1.0-5.0 L MONOCYTE # (test code = MO#) 0.70 K/mm3 0-0.8 N EOSINOPHIL # (test code = EO#) 0.00 K/mm3 0.0-0.5 N BASOPHIL # (test code = BA#) 0.11 K/mm3 0.0-0.2 N NUCLEATED RBC # (test code = NRBC#) 0.00 K/mm3 0.0-0.1 N MANUAL DIFF REQUIRED (test code = MDIFF) YES STAIN ACCEPTABILITY (test code = STN ACCEPTABLE) STAIN ACCEPTABLE TOTAL CELLS COUNTED (test code = TCC) 112 #CELLS SEGMENTED NEUTROPHILS (test code = SEG) 92.1 % 39-69 H BAND NEUTROPHIL (test code = BAND) 1.8 % 0-10 N LYMPHOCYTE (test code = LYMPH) 0 % 25-55 L REACTIVE LYMPH (test code = RELYMPH) 0 % MONOCYTE (test code = MON) 6.1 % 0-10 N EOSINOPHIL (test code = EOS) 0 % 0.0-5.0 N BASOPHIL (test code = BASO) 0 % 0-1.0 N METAMYELOCYTE (test code = META) 0 % 0-0 N MYELOCYTE (test code = MYELO) 0 % 0.0-0.0 N PROMYELOCYTE (test code = PROM) 0 % 0-0 N POIKILOCYTOSIS (test code = POIK) 3+ ANISOCYTOSIS (test code = ANISO) 1+ MACROCYTOSIS (test code = MACR) 1+ ELLIPTOCYTES (test code = ELL) 1+ CRENATED CELLS (test code = CREN) 2+ TOXIC GRANULATION (test code = TOX) 1+ PLATELET ESTIMATE (test code = PLTEST) ADEQUATE PLATELET MORPHOLOGY (test code = PLTMORPH) NORMAL IMMATURE FORMS (test code = IMMAT) 0 % 0-0 N [id number] 12:44:00* Test Item Value Reference Range Interpretation Comments GLUBED (test code = GLUBED) 211 mg/dL 74-106 H Performed by certified photogravure press operator at [facility] CBC W/MANUAL [id number] 12:34:00* Test Item Value Reference Range Interpretation Comments WHITE BLOOD CELL (test code = WBC) 34.5 K/mm3 4.5-12.5 H RED BLOOD CELL (test code = RBC) 4.34 mill/mm3 4.0-5.8 N HEMOGLOBIN (test code = HGB) 11.7 gram/dL 13.0-17.5 L HEMATOCRIT (test code = HCT) 39.5 % 42.0-52.0 L MEAN CELL VOLUME (test code = MCV) 91.0 fL 80-98 N MEAN CELL HGB (test code = MCH) 27.0 picogram 27.0-33.0 N MEAN CELL HGB CONCETRATION (test code = MCHC) 29.6 gram/dL 33.0-36. 0 L RED CELL DISTRIBUTION WIDTH (test code = RDW) 15.3 % 11.6-16. 2 N RED CELL DISTRIBUTION WIDTH SD (test code = RDW-SD) 50.7 fL 37 .0-51.0 N PLATELET COUNT (test code = PLT) 277 K/mm3 150-450 RESULT VERIFIED BY REPEAT ANALYSIS MEAN PLATELET VOLUME (test code = MPV) 10.4 fL 6.7-11.0 N IMMATURE GRANULOCYTE % (test code = IG%) 3.8 % 0.0-5.0 N NUCLEATED RBC % (test code = NRBC%) 0.0 % 0-0 N NEUTROPHIL # (test code = NT#) 32.18 K/mm3 1.8-7.7 H IMMATURE GRANULOCYTE # (test code = IG#) 1.31 x10 3/uL 0-0.03 H LYMPHOCYTE # (test code = LY#) 0.23 K/mm3 1.0-5.0 L MONOCYTE # (test code = MO#) 0.70 K/mm3 0-0.8 N EOSINOPHIL # (test code = EO#) 0.00 K/mm3 0.0-0.5 N BASOPHIL # (test code = BA#) 0.11 K/mm3 0.0-0.2 N NUCLEATED RBC # (test code = NRBC#) 0.00 K/mm3 0.0-0.1 N MANUAL DIFF REQUIRED (test code = MDIFF) YES STAIN ACCEPTABILITY (test code = STN ACCEPTABLE) STAIN ACCEPTABLE TOTAL CELLS COUNTED (test code = TCC) 112 #CELLS SEGMENTED NEUTROPHILS (test code = SEG) 92.1 % 39-69 H BAND NEUTROPHIL (test code = BAND) 1.8 % 0-10 N LYMPHOCYTE (test code = LYMPH) 0 % 25-55 L REACTIVE LYMPH (test code = RELYMPH) 0 % MONOCYTE (test code = MON) 6.1 % 0-10 N EOSINOPHIL (test code = EOS) 0 % 0.0-5.0 N BASOPHIL (test code = BASO) 0 % 0-1.0 N METAMYELOCYTE (test code = META) 0 % 0-0 N MYELOCYTE (test code = MYELO) 0 % 0.0-0.0 N PROMYELOCYTE (test code = PROM) 0 % 0-0 N POIKILOCYTOSIS (test code = POIK) 3+ ANISOCYTOSIS (test code = ANISO) 1+ MACROCYTOSIS (test code = MACR) 1+ ELLIPTOCYTES (test code = ELL) 1+ CRENATED CELLS (test code = CREN) 2+ PLATELET ESTIMATE (test code = PLTEST) ADEQUATE PLATELET MORPHOLOGY (test code = PLTMORPH) NORMAL IMMATURE FORMS (test code = IMMAT) 0 % 0-0 N CBC W/MANUAL [id number] 11:23:00* Test Item Value Reference Range Interpretation Comments WHITE BLOOD CELL (test code = WBC) 34.5 K/mm3 4.5-12.5 H RED BLOOD CELL (test code = RBC) 4.34 mill/mm3 4.0-5.8 N HEMOGLOBIN (test code = HGB) 11.7 gram/dL 13.0-17.5 L HEMATOCRIT (test code = HCT) 39.5 % 42.0-52.0 L MEAN CELL VOLUME (test code = MCV) 91.0 fL 80-98 N MEAN CELL HGB (test code = MCH) 27.0 picogram 27.0-33.0 N MEAN CELL HGB CONCETRATION (test code = MCHC) 29.6 gram/dL 33.0-36. 0 L RED CELL DISTRIBUTION WIDTH (test code = RDW) 15.3 % 11.6-16. 2 N RED CELL DISTRIBUTION WIDTH SD (test code = RDW-SD) 50.7 fL 37 .0-51.0 N PLATELET COUNT (test code = PLT) 277 K/mm3 150-450 RESULT VERIFIED BY REPEAT ANALYSIS MEAN PLATELET VOLUME (test code = MPV) 10.4 fL 6.7-11.0 N IMMATURE GRANULOCYTE % (test code = IG%) 3.8 % 0.0-5.0 N NUCLEATED RBC % (test code = NRBC%) 0.0 % 0-0 N NEUTROPHIL # (test code = NT#) 32.18 K/mm3 1.8-7.7 H IMMATURE GRANULOCYTE # (test code = IG#) 1.31 x10 3/uL 0-0.03 H LYMPHOCYTE # (test code = LY#) 0.23 K/mm3 1.0-5.0 L MONOCYTE # (test code = MO#) 0.70 K/mm3 0-0.8 N EOSINOPHIL # (test code = EO#) 0.00 K/mm3 0.0-0.5 N BASOPHIL # (test code = BA#) 0.11 K/mm3 0.0-0.2 N NUCLEATED RBC # (test code = NRBC#) 0.00 K/mm3 0.0-0.1 N MANUAL DIFF REQUIRED (test code = MDIFF) YES STAIN ACCEPTABILITY (test code = STN ACCEPTABLE) TOTAL CELLS COUNTED (test code = TCC) #CELLS SEGMENTED NEUTROPHILS (test code = SEG) % 39-69 LYMPHOCYTE (test code = LYMPH) % 25-55 MONOCYTE (test code = MON) % 0-10 EOSINOPHIL (test code = EOS) % 0.0-5.0 CABOT RINGS (test code = CAB) MORPHOLOGY COMMENT (test code = MOC) PLATELET ESTIMATE (test code = PLTEST) PLATELET MORPHOLOGY (test code = PLTMORPH) CBC W/MANUAL [id number] 11:23:00* Test Item Value Reference Range Interpretation Comments WHITE BLOOD CELL (test code = WBC) 34.5 K/mm3 4.5-12.5 H RED BLOOD CELL (test code = RBC) 4.34 mill/mm3 4.0-5.8 N HEMOGLOBIN (test code = HGB) 11.7 gram/dL 13.0-17.5 L HEMATOCRIT (test code = HCT) 39.5 % 42.0-52.0 L MEAN CELL VOLUME (test code = MCV) 91.0 fL 80-98 N MEAN CELL HGB (test code = MCH) 27.0 picogram 27.0-33.0 N MEAN CELL HGB CONCETRATION (test code = MCHC) 29.6 gram/dL 33.0-36. 0 L RED CELL DISTRIBUTION WIDTH (test code = RDW) 15.3 % 11.6-16. 2 N RED CELL DISTRIBUTION WIDTH SD (test code = RDW-SD) 50.7 fL 37 .0-51.0 N PLATELET COUNT (test code = PLT) 277 K/mm3 150-450 RESULT VERIFIED BY REPEAT ANALYSIS MEAN PLATELET VOLUME (test code = MPV) 10.4 fL 6.7-11.0 N IMMATURE GRANULOCYTE % (test code = IG%) 3.8 % 0.0-5.0 N NUCLEATED RBC % (test code = NRBC%) 0.0 % 0-0 N NEUTROPHIL # (test code = NT#) 32.18 K/mm3 1.8-7.7 H IMMATURE GRANULOCYTE # (test code = IG#) 1.31 x10 3/uL 0-0.03 H LYMPHOCYTE # (test code = LY#) 0.23 K/mm3 1.0-5.0 L MONOCYTE # (test code = MO#) 0.70 K/mm3 0-0.8 N EOSINOPHIL # (test code = EO#) 0.00 K/mm3 0.0-0.5 N BASOPHIL # (test code = BA#) 0.11 K/mm3 0.0-0.2 N NUCLEATED RBC # (test code = NRBC#) 0.00 K/mm3 0.0-0.1 N MANUAL DIFF REQUIRED (test code = MDIFF) YES STAIN ACCEPTABILITY (test code = STN ACCEPTABLE) TOTAL CELLS COUNTED (test code = TCC) #CELLS SEGMENTED NEUTROPHILS (test code = SEG) % 39-69 LYMPHOCYTE (test code = LYMPH) % 25-55 MONOCYTE (test code = MON) % 0-10 EOSINOPHIL (test code = EOS) % 0.0-5.0 CABOT RINGS (test code = CAB) MORPHOLOGY COMMENT (test code = MOC) PLATELET ESTIMATE (test code = PLTEST) PLATELET MORPHOLOGY (test code = PLTMORPH) CBC W/MANUAL [id number] 11:23:00* Test Item Value Reference Range Interpretation Comments WHITE BLOOD CELL (test code = WBC) 34.5 K/mm3 4.5-12.5 H RED BLOOD CELL (test code = RBC) 4.34 mill/mm3 4.0-5.8 N HEMOGLOBIN (test code = HGB) 11.7 gram/dL 13.0-17.5 L HEMATOCRIT (test code = HCT) 39.5 % 42.0-52.0 L MEAN CELL VOLUME (test code = MCV) 91.0 fL 80-98 N MEAN CELL HGB (test code = MCH) 27.0 picogram 27.0-33.0 N MEAN CELL HGB CONCETRATION (test code = MCHC) 29.6 gram/dL 33.0-36. 0 L RED CELL DISTRIBUTION WIDTH (test code = RDW) 15.3 % 11.6-16. 2 N RED CELL DISTRIBUTION WIDTH SD (test code = RDW-SD) 50.7 fL 37 .0-51.0 N PLATELET COUNT (test code = PLT) 277 K/mm3 150-450 RESULT VERIFIED BY REPEAT ANALYSIS MEAN PLATELET VOLUME (test code = MPV) 10.4 fL 6.7-11.0 N IMMATURE GRANULOCYTE % (test code = IG%) 3.8 % 0.0-5.0 N NUCLEATED RBC % (test code = NRBC%) 0.0 % 0-0 N NEUTROPHIL # (test code = NT#) 32.18 K/mm3 1.8-7.7 H IMMATURE GRANULOCYTE # (test code = IG#) 1.31 x10 3/uL 0-0.03 H LYMPHOCYTE # (test code = LY#) 0.23 K/mm3 1.0-5.0 L MONOCYTE # (test code = MO#) 0.70 K/mm3 0-0.8 N EOSINOPHIL # (test code = EO#) 0.00 K/mm3 0.0-0.5 N BASOPHIL # (test code = BA#) 0.11 K/mm3 0.0-0.2 N NUCLEATED RBC # (test code = NRBC#) 0.00 K/mm3 0.0-0.1 N MANUAL DIFF REQUIRED (test code = MDIFF) YES STAIN ACCEPTABILITY (test code = STN ACCEPTABLE) TOTAL CELLS COUNTED (test code = TCC) #CELLS SEGMENTED NEUTROPHILS (test code = SEG) % 39-69 LYMPHOCYTE (test code = LYMPH) % 25-55 MONOCYTE (test code = MON) % 0-10 EOSINOPHIL (test code = EOS) % 0.0-5.0 MORPHOLOGY COMMENT (test code = MOC) PLATELET ESTIMATE (test code = PLTEST) PLATELET MORPHOLOGY (test code = PLTMORPH) CBC W/MANUAL [id number] 11:23:00* Test Item Value Reference Range Interpretation Comments WHITE BLOOD CELL (test code = WBC) 34.5 K/mm3 4.5-12.5 H RED BLOOD CELL (test code = RBC) 4.34 mill/mm3 4.0-5.8 N HEMOGLOBIN (test code = HGB) 11.7 gram/dL 13.0-17.5 L HEMATOCRIT (test code = HCT) 39.5 % 42.0-52.0 L MEAN CELL VOLUME (test code = MCV) 91.0 fL 80-98 N MEAN CELL HGB (test code = MCH) 27.0 picogram 27.0-33.0 N MEAN CELL HGB CONCETRATION (test code = MCHC) 29.6 gram/dL 33.0-36. 0 L RED CELL DISTRIBUTION WIDTH (test code = RDW) 15.3 % 11.6-16. 2 N RED CELL DISTRIBUTION WIDTH SD (test code = RDW-SD) 50.7 fL 37 .0-51.0 N PLATELET COUNT (test code = PLT) 277 K/mm3 150-450 RESULT VERIFIED BY REPEAT ANALYSIS MEAN PLATELET VOLUME (test code = MPV) 10.4 fL 6.7-11.0 N IMMATURE GRANULOCYTE % (test code = IG%) 3.8 % 0.0-5.0 N NUCLEATED RBC % (test code = NRBC%) 0.0 % 0-0 N NEUTROPHIL # (test code = NT#) 32.18 K/mm3 1.8-7.7 H IMMATURE GRANULOCYTE # (test code = IG#) 1.31 x10 3/uL 0-0.03 H LYMPHOCYTE # (test code = LY#) 0.23 K/mm3 1.0-5.0 L MONOCYTE # (test code = MO#) 0.70 K/mm3 0-0.8 N EOSINOPHIL # (test code = EO#) 0.00 K/mm3 0.0-0.5 N BASOPHIL # (test code = BA#) 0.11 K/mm3 0.0-0.2 N NUCLEATED RBC # (test code = NRBC#) 0.00 K/mm3 0.0-0.1 N MANUAL DIFF REQUIRED (test code = MDIFF) YES STAIN ACCEPTABILITY (test code = STN ACCEPTABLE) TOTAL CELLS COUNTED (test code = TCC) #CELLS SEGMENTED NEUTROPHILS (test code = SEG) % 39-69 LYMPHOCYTE (test code = LYMPH) % 25-55 MONOCYTE (test code = MON) % 0-10 MORPHOLOGY COMMENT (test code = MOC) PLATELET ESTIMATE (test code = PLTEST) PLATELET MORPHOLOGY (test code = PLTMORPH) CBC W/MANUAL [id number] 11:23:00* Test Item Value Reference Range Interpretation Comments WHITE BLOOD CELL (test code = WBC) 34.5 K/mm3 4.5-12.5 H RED BLOOD CELL (test code = RBC) 4.34 mill/mm3 4.0-5.8 N HEMOGLOBIN (test code = HGB) 11.7 gram/dL 13.0-17.5 L HEMATOCRIT (test code = HCT) 39.5 % 42.0-52.0 L MEAN CELL VOLUME (test code = MCV) 91.0 fL 80-98 N MEAN CELL HGB (test code = MCH) 27.0 picogram 27.0-33.0 N MEAN CELL HGB CONCETRATION (test code = MCHC) 29.6 gram/dL 33.0-36. 0 L RED CELL DISTRIBUTION WIDTH (test code = RDW) 15.3 % 11.6-16. 2 N RED CELL DISTRIBUTION WIDTH SD (test code = RDW-SD) 50.7 fL 37 .0-51.0 N PLATELET COUNT (test code = PLT) 277 K/mm3 150-450 RESULT VERIFIED BY REPEAT ANALYSIS MEAN PLATELET VOLUME (test code = MPV) 10.4 fL 6.7-11.0 N IMMATURE GRANULOCYTE % (test code = IG%) 3.8 % 0.0-5.0 N NUCLEATED RBC % (test code = NRBC%) 0.0 % 0-0 N NEUTROPHIL # (test code = NT#) 32.18 K/mm3 1.8-7.7 H IMMATURE GRANULOCYTE # (test code = IG#) 1.31 x10 3/uL 0-0.03 H LYMPHOCYTE # (test code = LY#) 0.23 K/mm3 1.0-5.0 L MONOCYTE # (test code = MO#) 0.70 K/mm3 0-0.8 N EOSINOPHIL # (test code = EO#) 0.00 K/mm3 0.0-0.5 N BASOPHIL # (test code = BA#) 0.11 K/mm3 0.0-0.2 N NUCLEATED RBC # (test code = NRBC#) 0.00 K/mm3 0.0-0.1 N MANUAL DIFF REQUIRED (test code = MDIFF) YES STAIN ACCEPTABILITY (test code = STN ACCEPTABLE) TOTAL CELLS COUNTED (test code = TCC) #CELLS SEGMENTED NEUTROPHILS (test code = SEG) % 39-69 LYMPHOCYTE (test code = LYMPH) % 25-55 MONOCYTE (test code = MON) % 0-10 EOSINOPHIL (test code = EOS) % 0.0-5.0 CABOT RINGS (test code = CAB) MORPHOLOGY COMMENT (test code = MOC) PLATELET ESTIMATE (test code = PLTEST) PLATELET MORPHOLOGY (test code = PLTMORPH) [id number] 06:10:00* Test Item Value Reference Range Interpretation Comments GLUBED (test code = GLUBED) 265 mg/dL 74-106 H Performed by certified photogravure press operator at [facility] BASIC METABOLIC [id number] 06:09:00* Test Item Value Reference Range Interpretation Comments SODIUM (test code = NA) 137 mmol/L 136-145 N POTASSIUM (test code = K) 4.5 mmol/L 3.5-5.1 N CHLORIDE (test code = CL) 104.0 mmol/L 98-107 N CARBON DIOXIDE (test code = CO2) 24.0 mmol/L 21-32 N ANION GAP (test code = GAP) 13.5 10-20 N GLUCOSE (test code = GLU) 266 mg/dL 74-106 H BLOOD UREA NITROGEN (test code = BUN) 43 mg/dL 7-18 H GLOMERULAR FILTRATION RATE (test code = GFR) 45 mL/min >=60 Estimated GFR by using Modified MDRD formula.Chronic kidney disease is defined as either kidney damageor GFR <60 mL/min/1.73 m2 for >3 months. CREATININE (test code = CREAT) 1.50 mg/dL 0.7-1.3 H BUN/CREATININE RATIO (test code = BUN/CREA) 28.7 10-20 H CALCIUM (test code = CA) 8.3 mg/dL 8.5-10.1 L BASIC METABOLIC [id number] 06:05:00* Test Item Value Reference Range Interpretation Comments SODIUM (test code = NA) 137 mmol/L 136-145 N POTASSIUM (test code = K) 4.5 mmol/L 3.5-5.1 N CHLORIDE (test code = CL) 104.0 mmol/L 98-107 N CARBON DIOXIDE (test code = CO2) mmol/L 21-32 ANION GAP (test code = GAP) 10-20 GLUCOSE (test code = GLU) mg/dL 74-106 BLOOD UREA NITROGEN (test code = BUN) mg/dL 7-18 GLOMERULAR FILTRATION RATE (test code = GFR) mL/min >=60 CREATININE (test code = CREAT) mg/dL 0.7-1.3 BUN/CREATININE RATIO (test code = BUN/CREA) 10-20 CALCIUM (test code = CA) mg/dL 8.5-10.1 [id number] 07:37:00* Test Item Value Reference Range Interpretation Comments GLUBED (test code = GLUBED) 363 mg/dL 74-106 H Performed by certified photogravure press operator at [facility] BASIC METABOLIC [id number] 06:43:00* Test Item Value Reference Range Interpretation Comments SODIUM (test code = NA) 138 mmol/L 136-145 N POTASSIUM (test code = K) 4.4 mmol/L 3.5-5.1 N CHLORIDE (test code = CL) 104.0 mmol/L 98-107 N CARBON DIOXIDE (test code = CO2) 26.0 mmol/L 21-32 N ANION GAP (test code = GAP) 12.4 10-20 N GLUCOSE (test code = GLU) 423 mg/dL 74-106 H BLOOD UREA NITROGEN (test code = BUN) 48 mg/dL 7-18 H GLOMERULAR FILTRATION RATE (test code = GFR) 49 mL/min >=60 Estimated GFR by using Modified MDRD formula.Chronic kidney disease is defined as either kidney damageor GFR <60 mL/min/1.73 m2 for >3 months. CREATININE (test code = CREAT) 1.40 mg/dL 0.7-1.3 H BUN/CREATININE RATIO (test code = BUN/CREA) 34.3 10-20 H CALCIUM (test code = CA) 8.5 mg/dL 8.5-10.1 N BASIC METABOLIC [id number] 06:25:00* Test Item Value Reference Range Interpretation Comments SODIUM (test code = NA) 138 mmol/L 136-145 N POTASSIUM (test code = K) 4.4 mmol/L 3.5-5.1 N CHLORIDE (test code = CL) 104.0 mmol/L 98-107 N CARBON DIOXIDE (test code = CO2) mmol/L 21-32 ANION GAP (test code = GAP) 10-20 GLUCOSE (test code = GLU) mg/dL 74-106 BLOOD UREA NITROGEN (test code = BUN) mg/dL 7-18 GLOMERULAR FILTRATION RATE (test code = GFR) mL/min >=60 CREATININE (test code = CREAT) mg/dL 0.7-1.3 BUN/CREATININE RATIO (test code = BUN/CREA) 10-20 CALCIUM (test code = CA) mg/dL 8.5-10.1 [id number] 21:00:00* Test Item Value Reference Range Interpretation Comments GLUBED (test code = GLUBED) 361 mg/dL 74-106 H Performed by certified photogravure press operator at [facility] [id number] 17:12:00* Test Item Value Reference Range Interpretation Comments GLUBED (test code = GLUBED) 376 mg/dL 74-106 H Performed by certified photogravure press operator at [facility] - MRI LOW EXT W/O CONT [id number] 15:50:00 FAX: Buck Farr MD [phone] [place]: St: ADM Name: XOCHILT REYNA [facility] : [birth year] Age/S: 77/M [address] [facility] Unit #: [id number] Loc: V.[address] [place] [address] Phys: Buck Farr MD Acct: [id number] Dis Date: Status: ADM IN PHONE #: [phone] Exam Date: 09/28/2018 1503 FAX #: [phone] Reason: MRI B/L feet to r/o bone infection (heels) EXAMS: CPT CODE: [id number] MRI LOW EXT W/[place] [address] HISTORY: MRI B/L feet to r/o bone infection (heels) TECHNIQUE: Multiplanar and multisequence MR imag es of the left ankle were acquired without IV contrast. FIND INGS: There is no evidence of an open wound or abscess formation. The right heel appears unremarkable. The bone marrow signal is preserved. The ankle joint is congruent with no evidence of joint effusion. IMPRESSION: Unremarkable MRI of the right foot. at 1550 Reported and signed by: Rasheed Fields M.D. CC: Buck Farr MD Technologist: Faheem Myers)(MR) Trnscrd Date/Time/By: 09/28/2018 (0052) : By: [email or web address] Orig Print D/T: S: 09/28/2018 (9165) PAGE 1 Signed Report - MRI LOW EXT W/O CONT [id number] 15:47:00 FAX: Buck Farr MD [phone] [place]: St: ADM Name: XOCHILT REYNA [facility] : [birth year] 41 Age/S: 77/M [address] [facility] Unit #: [id number] Loc: V.[address] [place] [address] Phys: Buck Farr MD Acct: [id number] Dis Date: Status: ADM IN PHONE #: [phone] Exam Date: 09/28/2018 1503 FAX #: [phone] Reason: MRI B/L HEELS TO RULE OUT BONE INFECTION EXAMS: CPT CODE: [id number] [place] LOW [place] W/[place] [address] HISTORY: MRI B/L HEELS TO RULE OUT BONE INFECTION TECHNIQUE: Multiplanar and multisequence MR images of the left ankle were acquired without IV contrast. HELEN GS: Amputation of the left first toe at the metatarsophalangeal j oint. Amputation of the second toe through the proximal digit. There is an open wound seen in the medial aspect of the left heel with some per ipheral loss of marrow signal in the more calcaneus and soft tissue edema in this region. There is no evidence of abscess formation. IV contrast enh anced study is suggested to evaluate for osteomyelitis of the left calcane us. The ankle joint is congruent with no evidence of joint effusion. IMPRESSION: Limited study due to absence of IV contrast. 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 Open wound/ulcer at the left heel with involvement of the calcaneus. There is loss of marrow signal and edema concerning for osteomyelitis. Recommend further evaluation with contrast-enhanced study. * * at 1541 Reported and signed by: Rasheed Fields M.D. CC: Buck Farr MD Technologist: Faheem Myers)(MR) Trnscrd Date/Time/By: 09/28/2018 (1547) : By: [email or web address] Orig Print D/T: S: 09/28/2018 (3751) PAGE 1 Signed Report CBC W/MANUAL [id number] 14:12:00 * Test Item Value Reference Range Interpretation Comments WHITE BLOOD CELL (test code = WBC) 24.0 K/mm3 4.5-12.5 H RED BLOOD CELL (test code = RBC) 4.25 mill/mm3 4.0-5.8 N HEMOGLOBIN (test code = HGB) 11.3 gram/dL 13.0-17.5 L HEMATOCRIT (test code = HCT) 37.8 % 42.0-52.0 L MEAN CELL VOLUME (test code = MCV) 88.9 fL 80-98 N MEAN CELL HGB (test code = MCH) 26.6 picogram 27.0-33.0 L MEAN CELL HGB CONCETRATION (test code = MCHC) 29.9 gram/dL 33.0-36. 0 L RED CELL DISTRIBUTION WIDTH (test code = RDW) 15.2 % 11.6-16. 2 N RED CELL DISTRIBUTION WIDTH SD (test code = RDW-SD) 49.3 fL 37 .0-51.0 N PLATELET COUNT (test code = PLT) 345 K/mm3 150-450 N MEAN PLATELET VOLUME (test code = MPV) 9.7 fL 6.7-11.0 N IMMATURE GRANULOCYTE % (test code = IG%) 3.7 % 0.0-5.0 N NUCLEATED RBC % (test code = NRBC%) 0.0 % 0-0 N NEUTROPHIL # (test code = NT#) 21.74 K/mm3 1.8-7.7 H IMMATURE GRANULOCYTE # (test code = IG#) 0.90 x10 3/uL 0-0.03 H LYMPHOCYTE # (test code = LY#) 0.48 K/mm3 1.0-5.0 L MONOCYTE # (test code = MO#) 0.81 K/mm3 0-0.8 H EOSINOPHIL # (test code = EO#) 0.01 K/mm3 0.0-0.5 N BASOPHIL # (test code = BA#) 0.08 K/mm3 0.0-0.2 N NUCLEATED RBC # (test code = NRBC#) 0.00 K/mm3 0.0-0.1 N MANUAL DIFF REQUIRED (test code = MDIFF) YES STAIN ACCEPTABILITY (test code = STN ACCEPTABLE) STAIN ACCEPTABLE TOTAL CELLS COUNTED (test code = TCC) 115 #CELLS SEGMENTED NEUTROPHILS (test code = SEG) 94.8 % 39-69 H BAND NEUTROPHIL (test code = BAND) 0 % 0-10 N LYMPHOCYTE (test code = LYMPH) 0 % 25-55 L REACTIVE LYMPH (test code = RELYMPH) 0 % MONOCYTE (test code = MON) 5.2 % 0-10 N EOSINOPHIL (test code = EOS) 0 % 0.0-5.0 N BASOPHIL (test code = BASO) 0 % 0-1.0 N METAMYELOCYTE (test code = META) 0 % 0-0 N MYELOCYTE (test code = MYELO) 0 % 0.0-0.0 N PROMYELOCYTE (test code = PROM) 0 % 0-0 N MORPHOLOGY COMMENT (test code = MOC) NORMAL PLATELET ESTIMATE (test code = PLTEST) ADEQUATE PLATELET MORPHOLOGY (test code = PLTMORPH) NORMAL IMMATURE FORMS (test code = IMMAT) 0 % 0-0 N BASIC METABOLIC [id number] 13:53:00* Test Item Value Reference Range Interpretation Comments SODIUM (test code = NA) 137 mmol/L 136-145 N POTASSIUM (test code = K) 4.6 mmol/L 3.5-5.1 N CHLORIDE (test code = CL) 105.0 mmol/L 98-107 N CARBON DIOXIDE (test code = CO2) 24.0 mmol/L 21-32 N ANION GAP (test code = GAP) 12.6 10-20 N GLUCOSE (test code = GLU) 303 mg/dL 74-106 H BLOOD UREA NITROGEN (test code = BUN) 58 mg/dL 7-18 H GLOMERULAR FILTRATION RATE (test code = GFR) 45 mL/min >=60 Estimated GFR by using Modified MDRD formula.Chronic kidney disease is defined as either kidney damageor GFR <60 mL/min/1.73 m2 for >3 months. CREATININE (test code = CREAT) 1.50 mg/dL 0.7-1.3 H BUN/CREATININE RATIO (test code = BUN/CREA) 38.7 10-20 H CALCIUM (test code = CA) 8.6 mg/dL 8.5-10.1 N BASIC METABOLIC [id number] 13:46:00* Test Item Value Reference Range Interpretation Comments SODIUM (test code = NA) 137 mmol/L 136-145 N POTASSIUM (test code = K) 4.6 mmol/L 3.5-5.1 N CHLORIDE (test code = CL) 105.0 mmol/L 98-107 N CARBON DIOXIDE (test code = CO2) mmol/L 21-32 ANION GAP (test code = GAP) 10-20 GLUCOSE (test code = GLU) mg/dL 74-106 BLOOD UREA NITROGEN (test code = BUN) mg/dL 7-18 GLOMERULAR FILTRATION RATE (test code = GFR) mL/min >=60 CREATININE (test code = CREAT) mg/dL 0.7-1.3 BUN/CREATININE RATIO (test code = BUN/CREA) 10-20 CALCIUM (test code = CA) mg/dL 8.5-10.1 CBC W/MANUAL [id number] 13:38:00* Test Item Value Reference Range Interpretation Comments WHITE BLOOD CELL (test code = WBC) 24.0 K/mm3 4.5-12.5 H RED BLOOD CELL (test code = RBC) 4.25 mill/mm3 4.0-5.8 N HEMOGLOBIN (test code = HGB) 11.3 gram/dL 13.0-17.5 L HEMATOCRIT (test code = HCT) 37.8 % 42.0-52.0 L MEAN CELL VOLUME (test code = MCV) 88.9 fL 80-98 N MEAN CELL HGB (test code = MCH) 26.6 picogram 27.0-33.0 L MEAN CELL HGB CONCETRATION (test code = MCHC) 29.9 gram/dL 33.0-36. 0 L RED CELL DISTRIBUTION WIDTH (test code = RDW) 15.2 % 11.6-16. 2 N RED CELL DISTRIBUTION WIDTH SD (test code = RDW-SD) 49.3 fL 37 .0-51.0 N PLATELET COUNT (test code = PLT) 345 K/mm3 150-450 N MEAN PLATELET VOLUME (test code = MPV) 9.7 fL 6.7-11.0 N IMMATURE GRANULOCYTE % (test code = IG%) 3.7 % 0.0-5.0 N NUCLEATED RBC % (test code = NRBC%) 0.0 % 0-0 N NEUTROPHIL # (test code = NT#) 21.74 K/mm3 1.8-7.7 H IMMATURE GRANULOCYTE # (test code = IG#) 0.90 x10 3/uL 0-0.03 H LYMPHOCYTE # (test code = LY#) 0.48 K/mm3 1.0-5.0 L MONOCYTE # (test code = MO#) 0.81 K/mm3 0-0.8 H EOSINOPHIL # (test code = EO#) 0.01 K/mm3 0.0-0.5 N BASOPHIL # (test code = BA#) 0.08 K/mm3 0.0-0.2 N NUCLEATED RBC # (test code = NRBC#) 0.00 K/mm3 0.0-0.1 N MANUAL DIFF REQUIRED (test code = MDIFF) YES STAIN ACCEPTABILITY (test code = STN ACCEPTABLE) TOTAL CELLS COUNTED (test code = TCC) #CELLS SEGMENTED NEUTROPHILS (test code = SEG) % 39-69 LYMPHOCYTE (test code = LYMPH) % 25-55 MONOCYTE (test code = MON) % 0-10 MORPHOLOGY COMMENT (test code = MOC) PLATELET ESTIMATE (test code = PLTEST) PLATELET MORPHOLOGY (test code = PLTMORPH) CBC W/MANUAL [id number] 13:36:00* Test Item Value Reference Range Interpretation Comments WHITE BLOOD CELL (test code = WBC) 24.0 K/mm3 4.5-12.5 H RED BLOOD CELL (test code = RBC) 4.25 mill/mm3 4.0-5.8 N HEMOGLOBIN (test code = HGB) 11.3 gram/dL 13.0-17.5 L HEMATOCRIT (test code = HCT) 37.8 % 42.0-52.0 L MEAN CELL VOLUME (test code = MCV) 88.9 fL 80-98 N MEAN CELL HGB (test code = MCH) 26.6 picogram 27.0-33.0 L MEAN CELL HGB CONCETRATION (test code = MCHC) 29.9 gram/dL 33.0-36. 0 L RED CELL DISTRIBUTION WIDTH (test code = RDW) 15.2 % 11.6-16. 2 N RED CELL DISTRIBUTION WIDTH SD (test code = RDW-SD) 49.3 fL 37 .0-51.0 N PLATELET COUNT (test code = PLT) 345 K/mm3 150-450 N MEAN PLATELET VOLUME (test code = MPV) 9.7 fL 6.7-11.0 N IMMATURE GRANULOCYTE % (test code = IG%) 3.7 % 0.0-5.0 N NUCLEATED RBC % (test code = NRBC%) 0.0 % 0-0 N NEUTROPHIL # (test code = NT#) 21.74 K/mm3 1.8-7.7 H IMMATURE GRANULOCYTE # (test code = IG#) 0.90 x10 3/uL 0-0.03 H LYMPHOCYTE # (test code = LY#) 0.48 K/mm3 1.0-5.0 L MONOCYTE # (test code = MO#) 0.81 K/mm3 0-0.8 H EOSINOPHIL # (test code = EO#) 0.01 K/mm3 0.0-0.5 N BASOPHIL # (test code = BA#) 0.08 K/mm3 0.0-0.2 N NUCLEATED RBC # (test code = NRBC#) 0.00 K/mm3 0.0-0.1 N MANUAL DIFF REQUIRED (test code = MDIFF) YES STAIN ACCEPTABILITY (test code = STN ACCEPTABLE) TOTAL CELLS COUNTED (test code = TCC) #CELLS SEGMENTED NEUTROPHILS (test code = SEG) % 39-69 LYMPHOCYTE (test code = LYMPH) % 25-55 MONOCYTE (test code = MON) % 0-10 EOSINOPHIL (test code = EOS) % 0.0-5.0 CABOT RINGS (test code = CAB) MORPHOLOGY COMMENT (test code = MOC) PLATELET ESTIMATE (test code = PLTEST) PLATELET MORPHOLOGY (test code = PLTMORPH) CBC W/MANUAL [id number] 13:36:00* Test Item Value Reference Range Interpretation Comments WHITE BLOOD CELL (test code = WBC) 24.0 K/mm3 4.5-12.5 H RED BLOOD CELL (test code = RBC) 4.25 mill/mm3 4.0-5.8 N HEMOGLOBIN (test code = HGB) 11.3 gram/dL 13.0-17.5 L HEMATOCRIT (test code = HCT) 37.8 % 42.0-52.0 L MEAN CELL VOLUME (test code = MCV) 88.9 fL 80-98 N MEAN CELL HGB (test code = MCH) 26.6 picogram 27.0-33.0 L MEAN CELL HGB CONCETRATION (test code = MCHC) 29.9 gram/dL 33.0-36. 0 L RED CELL DISTRIBUTION WIDTH (test code = RDW) 15.2 % 11.6-16. 2 N RED CELL DISTRIBUTION WIDTH SD (test code = RDW-SD) 49.3 fL 37 .0-51.0 N PLATELET COUNT (test code = PLT) 345 K/mm3 150-450 N MEAN PLATELET VOLUME (test code = MPV) 9.7 fL 6.7-11.0 N IMMATURE GRANULOCYTE % (test code = IG%) 3.7 % 0.0-5.0 N NUCLEATED RBC % (test code = NRBC%) 0.0 % 0-0 N NEUTROPHIL # (test code = NT#) 21.74 K/mm3 1.8-7.7 H IMMATURE GRANULOCYTE # (test code = IG#) 0.90 x10 3/uL 0-0.03 H LYMPHOCYTE # (test code = LY#) 0.48 K/mm3 1.0-5.0 L MONOCYTE # (test code = MO#) 0.81 K/mm3 0-0.8 H EOSINOPHIL # (test code = EO#) 0.01 K/mm3 0.0-0.5 N BASOPHIL # (test code = BA#) 0.08 K/mm3 0.0-0.2 N NUCLEATED RBC # (test code = NRBC#) 0.00 K/mm3 0.0-0.1 N MANUAL DIFF REQUIRED (test code = MDIFF) YES STAIN ACCEPTABILITY (test code = STN ACCEPTABLE) TOTAL CELLS COUNTED (test code = TCC) #CELLS SEGMENTED NEUTROPHILS (test code = SEG) % 39-69 LYMPHOCYTE (test code = LYMPH) % 25-55 MONOCYTE (test code = MON) % 0-10 EOSINOPHIL (test code = EOS) % 0.0-5.0 CABOT RINGS (test code = CAB) MORPHOLOGY COMMENT (test code = MOC) PLATELET ESTIMATE (test code = PLTEST) PLATELET MORPHOLOGY (test code = PLTMORPH) CBC W/MANUAL [id number] 13:36:00* Test Item Value Reference Range Interpretation Comments WHITE BLOOD CELL (test code = WBC) 24.0 K/mm3 4.5-12.5 H RED BLOOD CELL (test code = RBC) 4.25 mill/mm3 4.0-5.8 N HEMOGLOBIN (test code = HGB) 11.3 gram/dL 13.0-17.5 L HEMATOCRIT (test code = HCT) 37.8 % 42.0-52.0 L MEAN CELL VOLUME (test code = MCV) 88.9 fL 80-98 N MEAN CELL HGB (test code = MCH) 26.6 picogram 27.0-33.0 L MEAN CELL HGB CONCETRATION (test code = MCHC) 29.9 gram/dL 33.0-36. 0 L RED CELL DISTRIBUTION WIDTH (test code = RDW) 15.2 % 11.6-16. 2 N RED CELL DISTRIBUTION WIDTH SD (test code = RDW-SD) 49.3 fL 37 .0-51.0 N PLATELET COUNT (test code = PLT) 345 K/mm3 150-450 N MEAN PLATELET VOLUME (test code = MPV) 9.7 fL 6.7-11.0 N IMMATURE GRANULOCYTE % (test code = IG%) 3.7 % 0.0-5.0 N NUCLEATED RBC % (test code = NRBC%) 0.0 % 0-0 N NEUTROPHIL # (test code = NT#) 21.74 K/mm3 1.8-7.7 H IMMATURE GRANULOCYTE # (test code = IG#) 0.90 x10 3/uL 0-0.03 H LYMPHOCYTE # (test code = LY#) 0.48 K/mm3 1.0-5.0 L MONOCYTE # (test code = MO#) 0.81 K/mm3 0-0.8 H EOSINOPHIL # (test code = EO#) 0.01 K/mm3 0.0-0.5 N BASOPHIL # (test code = BA#) 0.08 K/mm3 0.0-0.2 N NUCLEATED RBC # (test code = NRBC#) 0.00 K/mm3 0.0-0.1 N MANUAL DIFF REQUIRED (test code = MDIFF) YES STAIN ACCEPTABILITY (test code = STN ACCEPTABLE) TOTAL CELLS COUNTED (test code = TCC) #CELLS SEGMENTED NEUTROPHILS (test code = SEG) % 39-69 LYMPHOCYTE (test code = LYMPH) % 25-55 MONOCYTE (test code = MON) % 0-10 EOSINOPHIL (test code = EOS) % 0.0-5.0 MORPHOLOGY COMMENT (test code = MOC) PLATELET ESTIMATE (test code = PLTEST) PLATELET MORPHOLOGY (test code = PLTMORPH) CBC W/MANUAL [id number] 13:36:00* Test Item Value Reference Range Interpretation Comments WHITE BLOOD CELL (test code = WBC) 24.0 K/mm3 4.5-12.5 H RED BLOOD CELL (test code = RBC) 4.25 mill/mm3 4.0-5.8 N HEMOGLOBIN (test code = HGB) 11.3 gram/dL 13.0-17.5 L HEMATOCRIT (test code = HCT) 37.8 % 42.0-52.0 L MEAN CELL VOLUME (test code = MCV) 88.9 fL 80-98 N MEAN CELL HGB (test code = MCH) 26.6 picogram 27.0-33.0 L MEAN CELL HGB CONCETRATION (test code = MCHC) 29.9 gram/dL 33.0-36. 0 L RED CELL DISTRIBUTION WIDTH (test code = RDW) 15.2 % 11.6-16. 2 N RED CELL DISTRIBUTION WIDTH SD (test code = RDW-SD) 49.3 fL 37 .0-51.0 N PLATELET COUNT (test code = PLT) 345 K/mm3 150-450 N MEAN PLATELET VOLUME (test code = MPV) 9.7 fL 6.7-11.0 N IMMATURE GRANULOCYTE % (test code = IG%) 3.7 % 0.0-5.0 N NUCLEATED RBC % (test code = NRBC%) 0.0 % 0-0 N NEUTROPHIL # (test code = NT#) 21.74 K/mm3 1.8-7.7 H IMMATURE GRANULOCYTE # (test code = IG#) 0.90 x10 3/uL 0-0.03 H LYMPHOCYTE # (test code = LY#) 0.48 K/mm3 1.0-5.0 L MONOCYTE # (test code = MO#) 0.81 K/mm3 0-0.8 H EOSINOPHIL # (test code = EO#) 0.01 K/mm3 0.0-0.5 N BASOPHIL # (test code = BA#) 0.08 K/mm3 0.0-0.2 N NUCLEATED RBC # (test code = NRBC#) 0.00 K/mm3 0.0-0.1 N MANUAL DIFF REQUIRED (test code = MDIFF) YES STAIN ACCEPTABILITY (test code = STN ACCEPTABLE) TOTAL CELLS COUNTED (test code = TCC) #CELLS SEGMENTED NEUTROPHILS (test code = SEG) % 39-69 LYMPHOCYTE (test code = LYMPH) % 25-55 MONOCYTE (test code = MON) % 0-10 EOSINOPHIL (test code = EOS) % 0.0-5.0 CABOT RINGS (test code = CAB) MORPHOLOGY COMMENT (test code = MOC) PLATELET ESTIMATE (test code = PLTEST) PLATELET MORPHOLOGY (test code = PLTMORPH) [id number] 12:50:00* Test Item Value Reference Range Interpretation Comments GLUBED (test code = GLUBED) 252 mg/dL 74-106 H Performed by certified photogravure press operator at [facility] [id number] 05:17:00* Test Item Value Reference Range Interpretation Comments GLUBED (test code = GLUBED) 324 mg/dL 74-106 H Performed by certified photogravure press operator at [facility] SED [id number] 22:05:00* Test Item Value Reference Range Interpretation Comments SED RATE (test code = SEDW) 94 mm/hr 0-15 H WINTROBE METHOD: NORMAL RANGE FOR MEN: 0-9 MM/HR WOMAN: 0-20 MM/HR SED RATE [id number] 22:04:00* Test Item Value Reference Range Interpretation Comments SED RATE WESTERGREN (test code = SEDW) 94 mm/hr 0-15 H C REACTIVE [id number] 18:17:00* Test Item Value Reference Range Interpretation Comments C REACTIVE PROTEIN (test code = CRP) 14.50 mg/dL 0-0.3 H [id number] 13:35:00* Test Item Value Reference Range Interpretation Comments GLYCOSYLATED HEMOGLOBIN (HA1C) (test code = GLYHGB) 8.1 % HbA1 4. 8-6.0 H ESTIMATED AVERAGE GLUCOSE (test code = EAG) 186 MG/DL LIPID PROFILE (CORONARY RISK)[id number] 13:35:00* Test Item Value Reference Range Interpretation Comments TRIGLYCERIDES (test code = TRIG) 116 mg/dL 20-150 N CHOLESTEROL (test code = CHOL) 86 mg/dL 0-200 N CHOLESTEROL/HDL RATIO (test code = CHOLHDL) 3.0 RATIO 0-4.9 N RISK ASSOCIATED WITH CHOL/HDL RATIOS: Risk Male Female1/2 AVERAGE 3.43 3.27AVERAGE 4.97 4.442X AVERAGE 9.55 7.053X AVERAGE 23.39 11.04 REFERENCE VALUE IS RELATED TO RISK LEVELS ASRECOMMENDED BY THE [facility]. HEART, LUNG, AND BLOOD INST. HDL CHOLESTEROL (test code = HDL) 25 mg/dL 40-60 L LIPOPROTEIN LDL (test code = LDL) 52 mg/dL 100-129 L Reference Interval: mg/dL mmol/L Optimal <100 <2.6Near/above optimal 100-129 2.6- 3.3Borderline High 130-159 3.4-4.1High 160-189 4.1-4.9Very High >=190 >=4.9========= This LDL result is a direct measurement.========= ADD [id number] 12:08:00* Test Item Value Reference Range Interpretation Comments GLUBED (test code = GLUBED) 329 mg/dL 74-106 H Performed by certified photogravure press operator at [facility] [id number] 09:41:00* Test Item Value Reference Range Interpretation Comments GLUBED (test code = GLUBED) 184 mg/dL 74-106 H Performed by certified photogravure press operator at [facility] [id number] 03:29:00* Test Item Value Reference Range Interpretation Comments TROPONIN-I (test code = TROPI) 0.046 ng/mL 0-0.045 H COMMENTS TO WIRE BENDER: COLLECT 3 HOURS AFTER PREVIOUS SAMPLECOMPREHENSIVE METABOLIC [id number] 03:21:00* Test Item Value Reference Range Interpretation Comments SODIUM (test code = NA) 141 mmol/L 136-145 N POTASSIUM (test code = K) 4.5 mmol/L 3.5-5.1 N CHLORIDE (test code = CL) 109.0 mmol/L 98-107 H CARBON DIOXIDE (test code = CO2) 22.0 mmol/L 21-32 N ANION GAP (test code = GAP) 14.5 10-20 N GLUCOSE (test code = GLU) 229 mg/dL 74-106 H BLOOD UREA NITROGEN (test code = BUN) 90 mg/dL 7-18 H GLOMERULAR FILTRATION RATE (test code = GFR) 31 mL/min >=60 Estimated GFR by using Modified MDRD formula.Chronic kidney disease is defined as either kidney damageor GFR <60 mL/min/1.73 m2 for >3 months. CREATININE (test code = CREAT) 2.10 mg/dL 0.7-1.3 H BUN/CREATININE RATIO (test code = BUN/CREA) 42.9 10-20 H TOTAL PROTEIN (test code = PROT) 7.0 gram/dL 6.4-8.2 N ALBUMIN (test code = ALB) 1.7 g/dL 3.4-5.0 L GLOBULIN (test code = GLOB) 5.3 gram/dL 2.7-4.2 H ALBUMIN/GLOBULIN RATIO (test code = A/G) 0.3 0.75-1.50 L CALCIUM (test code = CA) 8.2 mg/dL 8.5-10.1 L BILIRUBIN TOTAL (test code = BILT) 0.30 mg/dL 0.0-1.0 N SGOT/AST (test code = AST) 75 IUnit/L 15-37 H SGPT/ALT (test code = ALT) 91 IUnit/L 12-78 H ALKALINE PHOSPHATASE TOTAL (test code = ALKP) 317 IUnit/L 45-117 H Note change in reference range due to change in reagent. COMPREHENSIVE METABOLIC [id number] 03:15:00* Test Item Value Reference Range Interpretation Comments SODIUM (test code = NA) 141 mmol/L 136-145 N POTASSIUM (test code = K) 4.5 mmol/L 3.5-5.1 N CHLORIDE (test code = CL) 109.0 mmol/L 98-107 H CARBON DIOXIDE (test code = CO2) mmol/L 21-32 ANION GAP (test code = GAP) 10-20 GLUCOSE (test code = GLU) mg/dL 74-106 BLOOD UREA NITROGEN (test code = BUN) mg/dL 7-18 GLOMERULAR FILTRATION RATE (test code = GFR) mL/min >=60 CREATININE (test code = CREAT) mg/dL 0.7-1.3 BUN/CREATININE RATIO (test code = BUN/CREA) 10-20 TOTAL PROTEIN (test code = PROT) gram/dL 6.4-8.2 ALBUMIN (test code = ALB) g/dL 3.4-5.0 GLOBULIN (test code = GLOB) gram/dL 2.7-4.2 ALBUMIN/GLOBULIN RATIO (test code = A/G) 0.75-1.50 CALCIUM (test code = CA) mg/dL 8.5-10.1 BILIRUBIN TOTAL (test code = BILT) mg/dL 0.0-1.0 SGOT/AST (test code = AST) IUnit/L 15-37 SGPT/ALT (test code = ALT) IUnit/L 12-78 ALKALINE PHOSPHATASE TOTAL (test code = ALKP) IUnit/L 45-117 [id number] 23:38:00* Test Item Value Reference Range Interpretation Comments TROPONIN-I (test code = TROPI) 0.056 ng/mL 0-0.045 HH Results called to CARRIE ETIENNE by LIUS M.AG1 09/26/18 2337Critical results verified and read back by Nurse? Y COMMENTS TO WIRE BENDER: COLLECT 3 HOURS AFTER PREVIOUS SAMPLELACTIC [id number] 21:04:00* Test Item Value Reference Range Interpretation Comments LACTIC ACID (test code = LACT) 0.9 mmol/L 0.4-1.9 N 09/26/18 1730- CT ABD PELVIS W/O [id number] 18:49:00 Name: XOCHILT EPSTEIN [facility] : 1940 Age/S: 77 / M [address] Unit #: [id number] Loc: [place]NA [place]wan [address] Phys: Carolyn Alegria MD Acct: [id number] Dis Date: Status: ADM IN PHONE #: [phone] Exam Date: 09/26/2018 183 FAX #: [phone] Reason: ABD PAIN, ELEVATED WBC COUNT, TTP LOWER ABD EXAMS: CPT CODE: [id number] CT ABD PELVIS W/O CONT 12059 REASON FOR EXAM: ABD PAIN, ELEVATED WBC COUNT, TTP LOWER ABD EXAM ORDER DATE: 09/26/2018 6:22 PM Ordering David: Carolyn Alegria MD PROCEDURE: - CT ABD PELVIS W/O CONT COMPARISON: FINDINGS: CT images of the abdomen and pelvis were obtained without IV and without oral contrast at 5mm. Dose modulation, iterative reconstruction, and/or weight based adjustment of the MA/KV was utilized to reduce the radiation dose to as low as reasonably achievable. The liver, spleen, and pancreas are grossly within normal limits. The patient is status post cholecystectomy The kidneys are within normal limits. The urinary bladder is partially contracted with a Hood catheter. Nonspecific th ickening of the bladder wall. The colon, small bowel, and st omach are within normal limits without evidence of obstruction. The appen senia is unremarkable No evidence of free air or free fluid. IMPRESSION: Moderate amount of stool throughout the colon suggestive of constipation. Nonspecific minimal thickening of the wall of the urinary bladder cannot rule out cystitis. No other significant findings at 1849 Reported and signed by: Earle Alvarado M.D. CC: Carolyn Alegria MD Technologist:TELLY BELL, RT(R) CT CTDI: DLP: Trnscb Date/Time: 09/26/2018 (184) FernandoVTL Orig Print D/T: S: 09/26/2018 (4271) PAGE 1 Signed Report URINALYSIS [id number] 17:58:00* Test Item Value Reference Range Interpretation Comments UA COLOR (test code = COLU) YELLOW YELLOW UA APPEARANCE (test code = APPU) Cloudy CLEAR A UA GLUCOSE DIPSTICK (test code = DGLUU) 30 (Trace) mg/dL NEGATIVE A UA BILIRUBIN DIPSTICK (test code = BILU) NEGATIVE mg/dL NEGATIVE UA KETONE DIPSTICK (test code = KETU) NEGATIVE mg/dL NEGATIVE UA SPECIFIC GRAVITY (test code = SGU) 1.013 1.001-1.035 UA BLOOD DIPSTICK (test code = SUSI) 0.1 mg/dL (1+) mg/dL NEGATIVE A UA PH DIPSTICK (test code = MELINDA) 5.5 5.0-8.0 UA PROTEIN DIPSTICK (test code = PROU) 50 (1+) mg/dL NEGATIVE A UA UROBILINIOGEN DIPSTICK (test code = URO) Normal mg/dL NEGATIVE UA NITRITE DIPSTICK (test code = MARIAMA) NEGATIVE NEGATIVE UA LEUKOCYTE ESTERASE W REFLEX (test code = LEUUR) 500 Rasheed/u L (3+) Rasheed/uL NEGATIVE A UA WBC (test code = WBCU) 51-100 per HPF 0-5 A UA RBC (test code = RBCU) 6-10 per HPF 0-5 UA EPITHELIAL CELLS (test code = EPIU) Few (2-5/hpf) per HPF Few UA BACTERIA (test code = BACU) FEW per HPF NONE UA MUCUS (test code = MUCU) FEW per LPF NONE-FEW UA YEAST (test code = YEASTU) FEW per HPF NONE A Urine Source? Clean CatchURINALYSIS [id number] 17:48:00* Test Item Value Reference Range Interpretation Comments UA COLOR (test code = COLU) YELLOW YELLOW UA APPEARANCE (test code = APPU) Cloudy CLEAR A UA GLUCOSE DIPSTICK (test code = DGLUU) 30 (Trace) mg/dL NEGATIVE A UA BILIRUBIN DIPSTICK (test code = BILU) NEGATIVE mg/dL NEGATIVE UA KETONE DIPSTICK (test code = KETU) NEGATIVE mg/dL NEGATIVE UA SPECIFIC GRAVITY (test code = SGU) 1.013 1.001-1.035 UA BLOOD DIPSTICK (test code = SUSI) 0.1 mg/dL (1+) mg/dL NEGATIVE A UA PH DIPSTICK (test code = MELINDA) 5.5 5.0-8.0 UA PROTEIN DIPSTICK (test code = PROU) 50 (1+) mg/dL NEGATIVE A UA UROBILINIOGEN DIPSTICK (test code = URO) Normal mg/dL NEGATIVE UA NITRITE DIPSTICK (test code = MRAIAMA) NEGATIVE NEGATIVE UA LEUKOCYTE ESTERASE W REFLEX (test code = LEUUR) 500 Rasheed/u L (3+) Rasheed/uL NEGATIVE A UA WBC (test code = WBCU) per HPF 0-5 UA RBC (test code = RBCU) per HPF 0-5 UA EPITHELIAL CELLS (test code = EPIU) per HPF Few UA BACTERIA (test code = BACU) per HPF NONE Urine Source? Clean CatchCBC W/MANUAL [id number] 17:15:00* Test Item Value Reference Range Interpretation Comments WHITE BLOOD CELL (test code = WBC) 32.7 K/mm3 4.5-12.5 H RED BLOOD CELL (test code = RBC) 4.48 mill/mm3 4.0-5.8 N HEMOGLOBIN (test code = HGB) 11.9 gram/dL 13.0-17.5 L HEMATOCRIT (test code = HCT) 39.2 % 42.0-52.0 L MEAN CELL VOLUME (test code = MCV) 87.5 fL 80-98 N MEAN CELL HGB (test code = MCH) 26.6 picogram 27.0-33.0 L MEAN CELL HGB CONCETRATION (test code = MCHC) 30.4 gram/dL 33.0-36. 0 L RED CELL DISTRIBUTION WIDTH (test code = RDW) 15.4 % 11.6-16. 2 N RED CELL DISTRIBUTION WIDTH SD (test code = RDW-SD) 49.2 fL 37 .0-51.0 N PLATELET COUNT (test code = PLT) 389 K/mm3 150-450 N MEAN PLATELET VOLUME (test code = MPV) 9.9 fL 6.7-11.0 N IMMATURE GRANULOCYTE % (test code = IG%) 3.4 % 0.0-5.0 N NUCLEATED RBC % (test code = NRBC%) 0.0 % 0-0 N NEUTROPHIL # (test code = NT#) 30.95 K/mm3 1.8-7.7 H IMMATURE GRANULOCYTE # (test code = IG#) 1.12 x10 3/uL 0-0.03 H LYMPHOCYTE # (test code = LY#) 0.30 K/mm3 1.0-5.0 L MONOCYTE # (test code = MO#) 0.24 K/mm3 0-0.8 N EOSINOPHIL # (test code = EO#) 0.00 K/mm3 0.0-0.5 N BASOPHIL # (test code = BA#) 0.12 K/mm3 0.0-0.2 N NUCLEATED RBC # (test code = NRBC#) 0.00 K/mm3 0.0-0.1 N MANUAL DIFF REQUIRED (test code = MDIFF) YES STAIN ACCEPTABILITY (test code = STN ACCEPTABLE) STAIN ACCEPTABLE TOTAL CELLS COUNTED (test code = TCC) 115 #CELLS SEGMENTED NEUTROPHILS (test code = SEG) 93.9 % 39-69 H BAND NEUTROPHIL (test code = BAND) 1.7 % 0-10 N LYMPHOCYTE (test code = LYMPH) 0 % 25-55 L REACTIVE LYMPH (test code = RELYMPH) 0.9 % MONOCYTE (test code = MON) 1.8 % 0-10 N EOSINOPHIL (test code = EOS) 0 % 0.0-5.0 N BASOPHIL (test code = BASO) 0 % 0-1.0 N METAMYELOCYTE (test code = META) 1.7 % 0-0 H MYELOCYTE (test code = MYELO) 0 % 0.0-0.0 N PROMYELOCYTE (test code = PROM) 0 % 0-0 N POIKILOCYTOSIS (test code = POIK) 1+ ANISOCYTOSIS (test code = ANISO) 1+ TOXIC GRANULATION (test code = TOX) 1+ PLATELET ESTIMATE (test code = PLTEST) ADEQUATE PLATELET MORPHOLOGY (test code = PLTMORPH) NORMAL IMMATURE FORMS (test code = IMMAT) 0 % 0-0 N CBC W/MANUAL [id number] 17:03:00* Test Item Value Reference Range Interpretation Comments WHITE BLOOD CELL (test code = WBC) 32.7 K/mm3 4.5-12.5 H RED BLOOD CELL (test code = RBC) 4.48 mill/mm3 4.0-5.8 N HEMOGLOBIN (test code = HGB) 11.9 gram/dL 13.0-17.5 L HEMATOCRIT (test code = HCT) 39.2 % 42.0-52.0 L MEAN CELL VOLUME (test code = MCV) 87.5 fL 80-98 N MEAN CELL HGB (test code = MCH) 26.6 picogram 27.0-33.0 L MEAN CELL HGB CONCETRATION (test code = MCHC) 30.4 gram/dL 33.0-36. 0 L RED CELL DISTRIBUTION WIDTH (test code = RDW) 15.4 % 11.6-16. 2 N RED CELL DISTRIBUTION WIDTH SD (test code = RDW-SD) 49.2 fL 37 .0-51.0 N PLATELET COUNT (test code = PLT) 389 K/mm3 150-450 N MEAN PLATELET VOLUME (test code = MPV) 9.9 fL 6.7-11.0 N IMMATURE GRANULOCYTE % (test code = IG%) 3.4 % 0.0-5.0 N NUCLEATED RBC % (test code = NRBC%) 0.0 % 0-0 N NEUTROPHIL # (test code = NT#) 30.95 K/mm3 1.8-7.7 H IMMATURE GRANULOCYTE # (test code = IG#) 1.12 x10 3/uL 0-0.03 H LYMPHOCYTE # (test code = LY#) 0.30 K/mm3 1.0-5.0 L MONOCYTE # (test code = MO#) 0.24 K/mm3 0-0.8 N EOSINOPHIL # (test code = EO#) 0.00 K/mm3 0.0-0.5 N BASOPHIL # (test code = BA#) 0.12 K/mm3 0.0-0.2 N NUCLEATED RBC # (test code = NRBC#) 0.00 K/mm3 0.0-0.1 N MANUAL DIFF REQUIRED (test code = MDIFF) YES STAIN ACCEPTABILITY (test code = STN ACCEPTABLE) STAIN ACCEPTABLE TOTAL CELLS COUNTED (test code = TCC) 115 #CELLS SEGMENTED NEUTROPHILS (test code = SEG) 93.9 % 39-69 H BAND NEUTROPHIL (test code = BAND) 1.7 % 0-10 N LYMPHOCYTE (test code = LYMPH) 0 % 25-55 L REACTIVE LYMPH (test code = RELYMPH) 0.9 % MONOCYTE (test code = MON) 1.8 % 0-10 N EOSINOPHIL (test code = EOS) 0 % 0.0-5.0 N BASOPHIL (test code = BASO) 0 % 0-1.0 N METAMYELOCYTE (test code = META) 1.7 % 0-0 H MYELOCYTE (test code = MYELO) 0 % 0.0-0.0 N PROMYELOCYTE (test code = PROM) 0 % 0-0 N POIKILOCYTOSIS (test code = POIK) 1+ ANISOCYTOSIS (test code = ANISO) 1+ PLATELET ESTIMATE (test code = PLTEST) ADEQUATE PLATELET MORPHOLOGY (test code = PLTMORPH) NORMAL IMMATURE FORMS (test code = IMMAT) 0 % 0-0 N PROCALCITONIN (PCT)[id number] 16:11:00* Test Item Value Reference Range Interpretation Comments PROCALCITONIN (PCT) (test code = PROCAL) 4.19 ng/ml Concentration Interpretation (ng/mL) <0.51 Sepsis is not likely. Local bacterial infection is possible. (LOW RISK for progression to Sepsis) 0.51 - 2.00 Sepsis is possible, but other conditions are known to elevate PCT as well. (MODERATE RISK for progression to Sepsis) > 2.00 Sepsis is likely, unless other causes are known. (HIGH RISK for progression to Severe Sepsis or Septic Shock) 10.00 High likelihood of Severe Sepsis or Septic or higher Shock. *Increased PCT levels may not always be related to systemic bacterial infection.*Low PCT levels do not automatically exclude the presence of bacterial infection.*All results should be interpreted taking into account the patients history. BASIC METABOLIC [id number] 16:06:00* Test Item Value Reference Range Interpretation Comments SODIUM (test code = NA) 137 mmol/L 136-145 N POTASSIUM (test code = K) 4.6 mmol/L 3.5-5.1 N CHLORIDE (test code = CL) 103.0 mmol/L 98-107 N CARBON DIOXIDE (test code = CO2) 22.0 mmol/L 21-32 N ANION GAP (test code = GAP) 16.6 10-20 N GLUCOSE (test code = GLU) 173 mg/dL 74-106 H BLOOD UREA NITROGEN (test code = BUN) 103 mg/dL 7-18 H GLOMERULAR FILTRATION RATE (test code = GFR) 21 mL/min >=60 Estimated GFR by using Modified MDRD formula.Chronic kidney disease is defined as either kidney damageor GFR <60 mL/min/1.73 m2 for >3 months. CREATININE (test code = CREAT) 2.90 mg/dL 0.7-1.3 H BUN/CREATININE RATIO (test code = BUN/CREA) 35.5 10-20 H CALCIUM (test code = CA) 8.7 mg/dL 8.5-10.1 N HEPATIC FUNCTION [id number] 16:06:00* Test Item Value Reference Range Interpretation Comments TOTAL PROTEIN (test code = PROT) 8.0 gram/dL 6.4-8.2 N ALBUMIN (test code = ALB) 1.9 g/dL 3.4-5.0 L GLOBULIN (test code = GLOB) 6.1 gram/dL 2.7-4.2 H ALBUMIN/GLOBULIN RATIO (test code = A/G) 0.3 0.75-1.50 L BILIRUBIN TOTAL (test code = BILT) 0.40 mg/dL 0.0-1.0 N BILIRUBIN DIRECT (test code = BILD) 0.18 mg/dL 0.0-0.20 N SGOT/AST (test code = AST) 63 IUnit/L 15-37 H SGPT/ALT (test code = ALT) 88 IUnit/L 12-78 H ALKALINE PHOSPHATASE TOTAL (test code = ALKP) 298 IUnit/L 45-117 H Note change in reference range due to change in reagent. [id number] 16:06:00* Test Item Value Reference Range Interpretation Comments LIPASE (test code = LIP) 241 U/L 73.0-393.0 N [id number] 16:06:00* Test Item Value Reference Range Interpretation Comments TROPONIN-I (test code = TROPI) 0.025 ng/mL 0-0.045 N BASIC METABOLIC [id number] 15:55:00* Test Item Value Reference Range Interpretation Comments SODIUM (test code = NA) 137 mmol/L 136-145 N POTASSIUM (test code = K) 4.6 mmol/L 3.5-5.1 N CHLORIDE (test code = CL) 103.0 mmol/L 98-107 N CARBON DIOXIDE (test code = CO2) mmol/L 21-32 ANION GAP (test code = GAP) 10-20 GLUCOSE (test code = GLU) mg/dL 74-106 BLOOD UREA NITROGEN (test code = BUN) mg/dL 7-18 GLOMERULAR FILTRATION RATE (test code = GFR) mL/min >=60 CREATININE (test code = CREAT) mg/dL 0.7-1.3 BUN/CREATININE RATIO (test code = BUN/CREA) 10-20 CALCIUM (test code = CA) mg/dL 8.5-10.1 HEPATIC FUNCTION [id number] 15:55:00* Test Item Value Reference Range Interpretation Comments TOTAL PROTEIN (test code = PROT) gram/dL 6.4-8.2 ALBUMIN (test code = ALB) g/dL 3.4-5.0 GLOBULIN (test code = GLOB) gram/dL 2.7-4.2 ALBUMIN/GLOBULIN RATIO (test code = A/G) 0.75-1.50 BILIRUBIN TOTAL (test code = BILT) mg/dL 0.0-1.0 BILIRUBIN DIRECT (test code = BILD) mg/dL 0.0-0.20 SGOT/AST (test code = AST) IUnit/L 15-37 SGPT/ALT (test code = ALT) IUnit/L 12-78 ALKALINE PHOSPHATASE TOTAL (test code = ALKP) IUnit/L 45-117 [id number] 15:55:00* Test Item Value Reference Range Interpretation Comments LIPASE (test code = LIP) U/L 73.0-393.0 [id number] 15:55:00* Test Item Value Reference Range Interpretation Comments TROPONIN-I (test code = TROPI) ng/mL 0-0.045 LACTIC [id number] 15:54:00* Test Item Value Reference Range Interpretation Comments LACTIC ACID (test code = LACT) 3.6 mmol/L 0.4-1.9 Results called to [id number] by V.LAB.LT 09/26/18 1554Critical results verified and read back by Nurse? Y - XR CHEST 1 [id number] 15:49:00 FAX: Carolyn Maya [phone] [place]: St: REG Name: XOCHILT REYNA [facility] : [birth year] 41 Age/S: 77/M [address] [facility] Unit #: [id number] Loc: [place] [address] Phys: Carolyn Alegria MD Acct: [id number] Dis Date: Status: REG ER PHONE #: [phone] Exam Date: 09/26/2018 1546 FAX #: [phone] Reason: CODE SEPSIS EXAMS: CPT CODE: [id number] XR CHEST 1 V 72754 REASON FOR EXAM: CODE SEPSIS EXAM ORDER DATE: 09/26/2018 3:14 PM Ordering David: Carolyn Alegria MD PROCEDURE: - XR CHEST 1 V CO MPARISON: 07/31/2018 FINDINGS: Portable AP frontal view of the [facility] obtained at 3:39 PM shows clear lungs without evidence of consolidation . There is no evidence of effusion. The heart size is within normal limits . Pulmonary vasculatures are unremarkable 2. Stable appearance of t he left IJ dialysis catheter and right IJ long-term central line. IMPRESSION: No active disease. at 6253 Reported and signed by: Earle Alvarado M.D. CC: Carolyn Alegria MD Technologist: MAXIME DISLA RT (R) Trnscrd Date/Time/By: 09/26/2018 (2856) : By: Kelly Orig Print D/T: S: 09/26/2018 (9613) PAGE 1 Signed Report PROTHROMBIN [id number] 15:45:00 * Test Item Value Reference Range Interpretation Comments PROTHROMBIN TIME PATIENT (test code = PTP) 15.7 seconds 9.0-14.0 H INTERNATIONAL NORMAL RATIO (test code = INR) 1.3 0.8-1.2 H The therapeutic range for oral anticoagulant therapy formost indications is an international normalized ratio (INR)of between 2.0 and 3.0. The recommended therapeutic INRrange for various clinical situations is listed below: Clinical Situation INR range Pulmonary e mbolism treatment (2.0-3.0)Venous thrombosis treatmentVenous thrombosis prophylaxis (high risk surgery)Prevention of systemic embolism from: Acute myocardial infarction Valvular heart disease Atrial fibrillation Mechanical prosthetic heart valves (2.5-3.5) IS PATIENT ON ANTICOAGULANTS? NTHROMBOPLASTIN TIME [id number] 15:45:00* Test Item Value Reference Range Interpretation Comments THROMBOPLASTIN TIME PARTIAL (test code = PTT) 30.6 seconds 25.0-36. 5 N IS PATIENT ON ANTICOAGULANTS? NCBC W/MANUAL [id number] 15:32:00* Test Item Value Reference Range Interpretation Comments WHITE BLOOD CELL (test code = WBC) 32.7 K/mm3 4.5-12.5 H RED BLOOD CELL (test code = RBC) 4.48 mill/mm3 4.0-5.8 N HEMOGLOBIN (test code = HGB) 11.9 gram/dL 13.0-17.5 L HEMATOCRIT (test code = HCT) 39.2 % 42.0-52.0 L MEAN CELL VOLUME (test code = MCV) 87.5 fL 80-98 N MEAN CELL HGB (test code = MCH) 26.6 picogram 27.0-33.0 L MEAN CELL HGB CONCETRATION (test code = MCHC) 30.4 gram/dL 33.0-36. 0 L RED CELL DISTRIBUTION WIDTH (test code = RDW) 15.4 % 11.6-16. 2 N RED CELL DISTRIBUTION WIDTH SD (test code = RDW-SD) 49.2 fL 37 .0-51.0 N PLATELET COUNT (test code = PLT) 389 K/mm3 150-450 N MEAN PLATELET VOLUME (test code = MPV) 9.9 fL 6.7-11.0 N IMMATURE GRANULOCYTE % (test code = IG%) 3.4 % 0.0-5.0 N NUCLEATED RBC % (test code = NRBC%) 0.0 % 0-0 N NEUTROPHIL # (test code = NT#) 30.95 K/mm3 1.8-7.7 H IMMATURE GRANULOCYTE # (test code = IG#) 1.12 x10 3/uL 0-0.03 H LYMPHOCYTE # (test code = LY#) 0.30 K/mm3 1.0-5.0 L MONOCYTE # (test code = MO#) 0.24 K/mm3 0-0.8 N EOSINOPHIL # (test code = EO#) 0.00 K/mm3 0.0-0.5 N BASOPHIL # (test code = BA#) 0.12 K/mm3 0.0-0.2 N NUCLEATED RBC # (test code = NRBC#) 0.00 K/mm3 0.0-0.1 N MANUAL DIFF REQUIRED (test code = MDIFF) YES STAIN ACCEPTABILITY (test code = STN ACCEPTABLE) TOTAL CELLS COUNTED (test code = TCC) #CELLS SEGMENTED NEUTROPHILS (test code = SEG) % 39-69 LYMPHOCYTE (test code = LYMPH) % 25-55 MONOCYTE (test code = MON) % 0-10 MORPHOLOGY COMMENT (test code = MOC) PLATELET ESTIMATE (test code = PLTEST) PLATELET MORPHOLOGY (test code = PLTMORPH) CBC W/MANUAL [id number] 15:30:00* Test Item Value Reference Range Interpretation Comments WHITE BLOOD CELL (test code = WBC) 32.7 K/mm3 4.5-12.5 H RED BLOOD CELL (test code = RBC) 4.48 mill/mm3 4.0-5.8 N HEMOGLOBIN (test code = HGB) 11.9 gram/dL 13.0-17.5 L HEMATOCRIT (test code = HCT) 39.2 % 42.0-52.0 L MEAN CELL VOLUME (test code = MCV) 87.5 fL 80-98 N MEAN CELL HGB (test code = MCH) 26.6 picogram 27.0-33.0 L MEAN CELL HGB CONCETRATION (test code = MCHC) 30.4 gram/dL 33.0-36. 0 L RED CELL DISTRIBUTION WIDTH (test code = RDW) 15.4 % 11.6-16. 2 N RED CELL DISTRIBUTION WIDTH SD (test code = RDW-SD) 49.2 fL 37 .0-51.0 N PLATELET COUNT (test code = PLT) 389 K/mm3 150-450 N MEAN PLATELET VOLUME (test code = MPV) 9.9 fL 6.7-11.0 N IMMATURE GRANULOCYTE % (test code = IG%) 3.4 % 0.0-5.0 N NUCLEATED RBC % (test code = NRBC%) 0.0 % 0-0 N NEUTROPHIL # (test code = NT#) 30.95 K/mm3 1.8-7.7 H IMMATURE GRANULOCYTE # (test code = IG#) 1.12 x10 3/uL 0-0.03 H LYMPHOCYTE # (test code = LY#) 0.30 K/mm3 1.0-5.0 L MONOCYTE # (test code = MO#) 0.24 K/mm3 0-0.8 N EOSINOPHIL # (test code = EO#) 0.00 K/mm3 0.0-0.5 N BASOPHIL # (test code = BA#) 0.12 K/mm3 0.0-0.2 N NUCLEATED RBC # (test code = NRBC#) 0.00 K/mm3 0.0-0.1 N MANUAL DIFF REQUIRED (test code = MDIFF) YES STAIN ACCEPTABILITY (test code = STN ACCEPTABLE) TOTAL CELLS COUNTED (test code = TCC) #CELLS SEGMENTED NEUTROPHILS (test code = SEG) % 39-69 LYMPHOCYTE (test code = LYMPH) % 25-55 MONOCYTE (test code = MON) % 0-10 EOSINOPHIL (test code = EOS) % 0.0-5.0 CABOT RINGS (test code = CAB) MORPHOLOGY COMMENT (test code = MOC) PLATELET ESTIMATE (test code = PLTEST) PLATELET MORPHOLOGY (test code = PLTMORPH) CBC W/MANUAL [id number] 15:30:00* Test Item Value Reference Range Interpretation Comments WHITE BLOOD CELL (test code = WBC) 32.7 K/mm3 4.5-12.5 H RED BLOOD CELL (test code = RBC) 4.48 mill/mm3 4.0-5.8 N HEMOGLOBIN (test code = HGB) 11.9 gram/dL 13.0-17.5 L HEMATOCRIT (test code = HCT) 39.2 % 42.0-52.0 L MEAN CELL VOLUME (test code = MCV) 87.5 fL 80-98 N MEAN CELL HGB (test code = MCH) 26.6 picogram 27.0-33.0 L MEAN CELL HGB CONCETRATION (test code = MCHC) 30.4 gram/dL 33.0-36. 0 L RED CELL DISTRIBUTION WIDTH (test code = RDW) 15.4 % 11.6-16. 2 N RED CELL DISTRIBUTION WIDTH SD (test code = RDW-SD) 49.2 fL 37 .0-51.0 N PLATELET COUNT (test code = PLT) 389 K/mm3 150-450 N MEAN PLATELET VOLUME (test code = MPV) 9.9 fL 6.7-11.0 N IMMATURE GRANULOCYTE % (test code = IG%) 3.4 % 0.0-5.0 N NUCLEATED RBC % (test code = NRBC%) 0.0 % 0-0 N NEUTROPHIL # (test code = NT#) 30.95 K/mm3 1.8-7.7 H IMMATURE GRANULOCYTE # (test code = IG#) 1.12 x10 3/uL 0-0.03 H LYMPHOCYTE # (test code = LY#) 0.30 K/mm3 1.0-5.0 L MONOCYTE # (test code = MO#) 0.24 K/mm3 0-0.8 N EOSINOPHIL # (test code = EO#) 0.00 K/mm3 0.0-0.5 N BASOPHIL # (test code = BA#) 0.12 K/mm3 0.0-0.2 N NUCLEATED RBC # (test code = NRBC#) 0.00 K/mm3 0.0-0.1 N MANUAL DIFF REQUIRED (test code = MDIFF) YES STAIN ACCEPTABILITY (test code = STN ACCEPTABLE) TOTAL CELLS COUNTED (test code = TCC) #CELLS SEGMENTED NEUTROPHILS (test code = SEG) % 39-69 LYMPHOCYTE (test code = LYMPH) % 25-55 MONOCYTE (test code = MON) % 0-10 EOSINOPHIL (test code = EOS) % 0.0-5.0 MORPHOLOGY COMMENT (test code = MOC) PLATELET ESTIMATE (test code = PLTEST) PLATELET MORPHOLOGY (test code = PLTMORPH) CBC W/MANUAL [id number] 15:29:00* Test Item Value Reference Range Interpretation Comments WHITE BLOOD CELL (test code = WBC) 32.7 K/mm3 4.5-12.5 H RED BLOOD CELL (test code = RBC) 4.48 mill/mm3 4.0-5.8 N HEMOGLOBIN (test code = HGB) 11.9 gram/dL 13.0-17.5 L HEMATOCRIT (test code = HCT) 39.2 % 42.0-52.0 L MEAN CELL VOLUME (test code = MCV) 87.5 fL 80-98 N MEAN CELL HGB (test code = MCH) 26.6 picogram 27.0-33.0 L MEAN CELL HGB CONCETRATION (test code = MCHC) 30.4 gram/dL 33.0-36. 0 L RED CELL DISTRIBUTION WIDTH (test code = RDW) 15.4 % 11.6-16. 2 N RED CELL DISTRIBUTION WIDTH SD (test code = RDW-SD) 49.2 fL 37 .0-51.0 N PLATELET COUNT (test code = PLT) 389 K/mm3 150-450 N MEAN PLATELET VOLUME (test code = MPV) 9.9 fL 6.7-11.0 N IMMATURE GRANULOCYTE % (test code = IG%) 3.4 % 0.0-5.0 N NUCLEATED RBC % (test code = NRBC%) 0.0 % 0-0 N NEUTROPHIL # (test code = NT#) 30.95 K/mm3 1.8-7.7 H IMMATURE GRANULOCYTE # (test code = IG#) 1.12 x10 3/uL 0-0.03 H LYMPHOCYTE # (test code = LY#) 0.30 K/mm3 1.0-5.0 L MONOCYTE # (test code = MO#) 0.24 K/mm3 0-0.8 N EOSINOPHIL # (test code = EO#) 0.00 K/mm3 0.0-0.5 N BASOPHIL # (test code = BA#) 0.12 K/mm3 0.0-0.2 N NUCLEATED RBC # (test code = NRBC#) 0.00 K/mm3 0.0-0.1 N MANUAL DIFF REQUIRED (test code = MDIFF) YES STAIN ACCEPTABILITY (test code = STN ACCEPTABLE) TOTAL CELLS COUNTED (test code = TCC) #CELLS SEGMENTED NEUTROPHILS (test code = SEG) % 39-69 LYMPHOCYTE (test code = LYMPH) % 25-55 MONOCYTE (test code = MON) % 0-10 EOSINOPHIL (test code = EOS) % 0.0-5.0 CABOT RINGS (test code = CAB) MORPHOLOGY COMMENT (test code = MOC) PLATELET ESTIMATE (test code = PLTEST) PLATELET MORPHOLOGY (test code = PLTMORPH) CBC W/MANUAL [id number] 15:29:00* Test Item Value Reference Range Interpretation Comments WHITE BLOOD CELL (test code = WBC) 32.7 K/mm3 4.5-12.5 H RED BLOOD CELL (test code = RBC) 4.48 mill/mm3 4.0-5.8 N HEMOGLOBIN (test code = HGB) 11.9 gram/dL 13.0-17.5 L HEMATOCRIT (test code = HCT) 39.2 % 42.0-52.0 L MEAN CELL VOLUME (test code = MCV) 87.5 fL 80-98 N MEAN CELL HGB (test code = MCH) 26.6 picogram 27.0-33.0 L MEAN CELL HGB CONCETRATION (test code = MCHC) 30.4 gram/dL 33.0-36. 0 L RED CELL DISTRIBUTION WIDTH (test code = RDW) 15.4 % 11.6-16. 2 N RED CELL DISTRIBUTION WIDTH SD (test code = RDW-SD) 49.2 fL 37 .0-51.0 N PLATELET COUNT (test code = PLT) 389 K/mm3 150-450 N MEAN PLATELET VOLUME (test code = MPV) 9.9 fL 6.7-11.0 N IMMATURE GRANULOCYTE % (test code = IG%) 3.4 % 0.0-5.0 N NUCLEATED RBC % (test code = NRBC%) 0.0 % 0-0 N NEUTROPHIL # (test code = NT#) 30.95 K/mm3 1.8-7.7 H IMMATURE GRANULOCYTE # (test code = IG#) 1.12 x10 3/uL 0-0.03 H LYMPHOCYTE # (test code = LY#) 0.30 K/mm3 1.0-5.0 L MONOCYTE # (test code = MO#) 0.24 K/mm3 0-0.8 N EOSINOPHIL # (test code = EO#) 0.00 K/mm3 0.0-0.5 N BASOPHIL # (test code = BA#) 0.12 K/mm3 0.0-0.2 N NUCLEATED RBC # (test code = NRBC#) 0.00 K/mm3 0.0-0.1 N MANUAL DIFF REQUIRED (test code = MDIFF) YES STAIN ACCEPTABILITY (test code = STN ACCEPTABLE) TOTAL CELLS COUNTED (test code = TCC) #CELLS SEGMENTED NEUTROPHILS (test code = SEG) % 39-69 LYMPHOCYTE (test code = LYMPH) % 25-55 MONOCYTE (test code = MON) % 0-10 EOSINOPHIL (test code = EOS) % 0.0-5.0 CABOT RINGS (test code = CAB) MORPHOLOGY COMMENT (test code = MOC) PLATELET ESTIMATE (test code = PLTEST) PLATELET MORPHOLOGY (test code = PLTMORPH) - SP FLUORO GUID CTRL ACC [id number] 14:56:00 Name: XOCHILT EPSTEIN [facility] : 1940 Age/S: 77 / M [address] Unit #: [id number] Loc: [place] [address] Phys: Guille Liao MD Acct: [id number] Dis Date: [id number] Status: DIS IN PHONE #: [phone] Exam Date: 07/29/2018 0943 FAX #: [phone] Reason: EXAMS: CPT CODE: [id number] SP FLUORO GUID CTRL ACC DEV 18028 Fluoro Time: 6 DAP (Gy m2): 1041 Air Kerma (mGy): 2.10 EXAM: Insertion of a tunneled hemodialysis catheter with fluoroscopic guidance and conscious sedation; INFORMATION: End-stage renal disease; TECHNIQUE AND FINDINGS: Conscious sedation start time: 0930 hours; Completion time: 0943 hours; Under physician supervision 1 mg of Versed and 25 mcg of fentanyl were administered intravenously for conscious sedation; the patient's heart rate, blood pressure and pulse oximetry were continuously monitored by a trained registered nurse. Physician [id number] sedation time was 13 minutes. After obtaining informed consent, the patient was placed supine on the procedure table and his left neck and chest region was prepp ed and draped in usual sterile fashion, applying all elements of maximal sterile barrier technique. Conscious sedation was initiated as descri bed above. Xylocaine was administered and the indwelling temporary hemodia lysis catheter was removed over a guidewire and was then replaced with a 1 5 Kitt[place] peel-away sheath. A subcutaneous tunnel was created in the usual sterile fashion and a tunneled hemodialysis catheter was then insert ed and positioned fluoroscopically with its tip in the right atrium. Good blood return was noticed; the catheter was sutured to the skin and f lushed with heparinized saline. No complications. IMPRESSI ON: Successful insertion of a tunneled hemodialysis catheter with fluoroscopic guidance and conscious sedation. Fluoroscopy Ti me: 6 sec CAK : 2.1 mGy DAP : 1041 mGy sq cm at 5817 Reported and signed by: Guille Liao M.D. PAGE 1 Signed Report (CONTINUED) Name: XOCHILT EPSTEIN [facility] : 1940 Age/S: 77 / M [address] [facility] Unit #: [id number] Loc: [place] [address] Phys: Guille Liao MD Acct: [id number] Dis Date: [id number] Status: DIS IN PHONE #: [phone] Exam Date: 07/29/2018 0943 FAX #: [phone] Reason: EXAMS: CPT CODE: [id number] SP FLUORO GUID CTRL ACC DEV 01050 Fluoro T susan: 6 DAP (Gy m2): 1041 Air Kerma (mGy): 2.10 <Continued> CC: Silvia Contreras MD Technologist: Ernie Martinez [facility] Date/Time: 08/14/2018 (8508) t.CALLI Orig Print D/T: S: 08/14/2018 (7274) PAGE 2 Signed Report [id number] 12:30:00* Test Item Value Reference Range Interpretation Comments GLUBED (test code = GLUBED) 150 mg/dL 74-106 H Performed by certified photogravure press operator at [facility] [id number] 12:30:00* Test Item Value Reference Range Interpretation Comments GLUBED (test code = GLUBED) 153 mg/dL 74-106 H Performed by certified photogravure press operator at [facility] [id number] 12:29:00* Test Item Value Reference Range Interpretation Comments GLUBED (test code = GLUBED) 342 mg/dL 74-106 H Performed by certified photogravure press operator at [facility] [id number] 12:29:00* Test Item Value Reference Range Interpretation Comments GLUBED (test code = GLUBED) 307 mg/dL 74-106 H Performed by certified photogravure press operator at [facility] [id number] 12:29:00* Test Item Value Reference Range Interpretation Comments GLUBED (test code = GLUBED) 142 mg/dL 74-106 H Performed by certified photogravure press operator at [facility] [id number] 14:41:00* Test Item Value Reference Range Interpretation Comments GLUBED (test code = GLUBED) 168 mg/dL 74-106 H Performed by certified photogravure press operator at [facility] [id number] 14:41:00* Test Item Value Reference Range Interpretation Comments GLUBED (test code = GLUBED) 280 mg/dL 74-106 H Performed by certified photogravure press operator at [facility] [id number] 14:40:00* Test Item Value Reference Range Interpretation Comments GLUBED (test code = GLUBED) 293 mg/dL 74-106 H Performed by certified photogravure press operator at [facility] [id number] 14:40:00* Test Item Value Reference Range Interpretation Comments GLUBED (test code = GLUBED) 139 mg/dL 74-106 H Performed by certified photogravure press operator at [facility] [id number] 14:40:00* Test Item Value Reference Range Interpretation Comments GLUBED (test code = GLUBED) 162 mg/dL 74-106 H Performed by certified photogravure press operator at [facility] [id number] 14:39:00* Test Item Value Reference Range Interpretation Comments GLUBED (test code = GLUBED) 272 mg/dL 74-106 H Performed by certified photogravure press operator at [facility] [id number] 14:39:00* Test Item Value Reference Range Interpretation Comments GLUBED (test code = GLUBED) 192 mg/dL 74-106 H Performed by certified photogravure press operator at [facility] [id number] 14:39:00* Test Item Value Reference Range Interpretation Comments GLUBED (test code = GLUBED) 139 mg/dL 74-106 H Performed by certified photogravure press operator at [facility] [id number] 14:38:00* Test Item Value Reference Range Interpretation Comments GLUBED (test code = GLUBED) 167 mg/dL 74-106 H Performed by certified photogravure press operator at [facility] [id number] 14:37:00* Test Item Value Reference Range Interpretation Comments GLUBED (test code = GLUBED) 189 mg/dL 74-106 H Performed by certified photogravure press operator at [facility] [id number] 14:37:00* Test Item Value Reference Range Interpretation Comments GLUBED (test code = GLUBED) 273 mg/dL 74-106 H Performed by certified photogravure press operator at [facility] [id number] 14:37:00* Test Item Value Reference Range Interpretation Comments GLUBED (test code = GLUBED) 187 mg/dL 74-106 H Performed by certified photogravure press operator at [facility] [id number] 14:36:00* Test Item Value Reference Range Interpretation Comments GLUBED (test code = GLUBED) 131 mg/dL 74-106 H Performed by certified photogravure press operator at [facility] [id number] 14:36:00* Test Item Value Reference Range Interpretation Comments GLUBED (test code = GLUBED) 141 mg/dL 74-106 H Performed by certified photogravure press operator at [facility] [id number] 14:36:00* Test Item Value Reference Range Interpretation Comments GLUBED (test code = GLUBED) 152 mg/dL 74-106 H Performed by certified photogravure press operator at [facility] [id number] 14:36:00* Test Item Value Reference Range Interpretation Comments GLUBED (test code = GLUBED) 208 mg/dL 74-106 H Performed by certified photogravure press operator at [facility] [id number] 14:35:00* Test Item Value Reference Range Interpretation Comments GLUBED (test code = GLUBED) 198 mg/dL 74-106 H Performed by certified photogravure press operator at [facility] [id number] 14:35:00* Test Item Value Reference Range Interpretation Comments GLUBED (test code = GLUBED) 192 mg/dL 74-106 H Performed by certified photogravure press operator at [facility] [id number] 10:38:00* Test Item Value Reference Range Interpretation Comments GLUBED (test code = GLUBED) 176 mg/dL 74-106 H Performed by certified photogravure press operator at [facility] [id number] 10:36:00* Test Item Value Reference Range Interpretation Comments GLUBED (test code = GLUBED) 223 mg/dL 74-106 H Performed by certified photogravure press operator at [facility] [id number] 10:35:00* Test Item Value Reference Range Interpretation Comments GLUBED (test code = GLUBED) 200 mg/dL 74-106 H Performed by certified photogravure press operator at [facility] [id number] 10:35:00* Test Item Value Reference Range Interpretation Comments GLUBED (test code = GLUBED) 172 mg/dL 74-106 H Performed by certified photogravure press operator at [facility] - [place] [facility] [id number] 09:15:00 Name: XOCHILT EPSTEIN [facility] : 1940 Age/S: 77 / M [address] [facility] Unit #: [id number] Loc: [place] [address] Phys: Silvia Contreras MD Acct: [id number] Dis Date: [id number] Status: DIS IN PHONE #: [phone] Exam Date: 07/31/2018 1404 FAX #: [phone] Reason: EXAMS: CPT CODE: [id number] [facility] ACCESS 82684 Fluoro Time: 12 DAP (Gy m2): 693 Air Kerma (mGy): 4.92 EXAM: Insertion of a tunneled central line with sonographic and fluoroscopic guidance; CPT: 65481, 43171, 17818; INFORMATION: End-stage renal disease; infection of the left foot; TECHNIQUE and FINDINGS: After obtaining informed consent, the patient was placed supine on the procedure table and the right neck region was prepped and draped in the usual sterile fashion, applying all elements of maximal sterile barrier technique. Ultrasound of the neck demonstrated a patent and compressible right internal jugular vein. Sonographic images were stored in PACS. Xylocaine was administered and using sonographic guidance the right internal jugular vein was accessed with a micropuncture system, followed by insertion of a guidewire. Under fluoroscopic guidance, sequential dilatation was performed and a 7-Kittitian peel-away sheath was then inserted over the wire. A subcutaneous tunnel was created in the usual sterile fashion and a 6 Kittitian dual-lumen tunneled central line was inserted. The tip of the central line was positioned in the SVC as demonstrated fluoroscopically. There was no evidence of a pneu mothorax; The patient tolerated the procedure well and there were no appar ent complications. IMPRESSION: Successful insertio n of a tunneled central line via right IJ access, using sonographic and fluoroscopic guidance. Fluoroscopy time:12 sec CAK:4.9 to mGy DAP:693 mGy-sqcm at 0915 Reported and signed by: David Ruelas C: Silvia Contreras MD Technologist: Ernie thompson Trngab Date/Time: 08/05/2018 (01 05) [email or web address] Orig Print D/T: S: 08/05/2018 (18) JADON LEON 1 Signed Report - SP FLUORO GUID CTRL ACC [id number] 09:15:00 Name: XOCHILT EPSTEIN [facility] : 1940 Age/S: 77 / M [address] [facility] Unit #: [id number] Loc: [place] [address] Phys: Silvia Contreras MD Acct: [id number] Dis Date: [id number] Status: DIS IN PHONE #: [phone] Exam Date: 07/31/2018 1404 FAX #: [phone] Reason: EXAMS: CPT CODE: [id number] SP FLUORO GUID CTRL ACC DEV 06125 Fluoro Time: 12 DAP (Gy m2): 693 Air Kerma (mGy): 4.92 EXAM: Insertion of a tunneled central line with sonographic and fluoroscopic guidance; CPT: 77265, 64920, 06986; INFORMATION: End-stage renal disease; infection of the left foot; TECHNIQUE and FINDINGS: After obtaining informed consent, the patient was placed supine on the procedure table and the right neck region was prepped and draped in the usual sterile fashion, applying all elements of maximal sterile barrier technique. Ultrasound of the neck demonstrated a patent and compressible right internal jugular vein. Sonographic images were stored in PACS. Xylocaine was administered and using sonographic guidance the right internal jugular vein was accessed with a micropuncture system, followed by insertion of a guidewire. Under fluoroscopic guidance, sequential dilatation was performed and a 7-Kittitian peel-away sheath was then inserted over the wire. A subcutaneous tunnel was created in the usual sterile fashion and a 6 Kittitian dual-lumen tunneled central line was inserted. The tip of the central line was positioned in the SVC as demonstrated fluoroscopically. There was no evidence of a pneu mothorax; The patient tolerated the procedure well and there were no appar ent complications. IMPRESSION: Successful insertio n of a tunneled central line via right IJ access, using sonographic and fluoroscopic guidance. Fluoroscopy time:12 sec CAK:4.9 to mGy DAP:693 mGy-sqcm at 0915 Reported and signed by: David Ruelas C: Silvia Contreras MD Technologist: Ernie thompson Trngab Date/Time: 08/05/2018 (01 05) Arnold.GRW Orig Print D/T: S: 08/05/2018 (917) JADON LEON 1 Signed Report BASIC METABOLIC [id number] 05:46:00* Test Item Value Reference Range Interpretation Comments SODIUM (test code = NA) 138 mmol/L 136-145 N POTASSIUM (test code = K) 4.0 mmol/L 3.5-5.1 N CHLORIDE (test code = CL) 102.0 mmol/L 98-107 N CARBON DIOXIDE (test code = CO2) 28.0 mmol/L 21-32 N ANION GAP (test code = GAP) 12.0 10-20 N GLUCOSE (test code = GLU) 186 mg/dL 74-106 H BLOOD UREA NITROGEN (test code = BUN) 35 mg/dL 7-18 H GLOMERULAR FILTRATION RATE (test code = GFR) 10 mL/min >=60 Estimated GFR by using Modified MDRD formula.Chronic kidney disease is defined as either kidney damageor GFR <60 mL/min/1.73 m2 for >3 months. CREATININE (test code = CREAT) 5.80 mg/dL 0.7-1.3 H BUN/CREATININE RATIO (test code = BUN/CREA) 6.0 10-20 L CALCIUM (test code = CA) 8.6 mg/dL 8.5-10.1 N BASIC METABOLIC [id number] 05:41:00* Test Item Value Reference Range Interpretation Comments SODIUM (test code = NA) 138 mmol/L 136-145 N POTASSIUM (test code = K) 4.0 mmol/L 3.5-5.1 N CHLORIDE (test code = CL) 102.0 mmol/L 98-107 N CARBON DIOXIDE (test code = CO2) mmol/L 21-32 ANION GAP (test code = GAP) 10-20 GLUCOSE (test code = GLU) mg/dL 74-106 BLOOD UREA NITROGEN (test code = BUN) mg/dL 7-18 GLOMERULAR FILTRATION RATE (test code = GFR) mL/min >=60 CREATININE (test code = CREAT) mg/dL 0.7-1.3 BUN/CREATININE RATIO (test code = BUN/CREA) 10-20 CALCIUM (test code = CA) mg/dL 8.5-10.1 CBC W/O [id number] 05:08:00* Test Item Value Reference Range Interpretation Comments WHITE BLOOD CELL (test code = WBC) 8.7 K/mm3 4.5-12.5 N RED BLOOD CELL (test code = RBC) 2.95 mill/mm3 4.0-5.8 L HEMOGLOBIN (test code = HGB) 8.1 gram/dL 13.0-17.5 L HEMATOCRIT (test code = HCT) 27.0 % 42.0-52.0 L MEAN CELL VOLUME (test code = MCV) 91.5 fL 80-98 N MEAN CELL HGB (test code = MCH) 27.5 picogram 27.0-33.0 N MEAN CELL HGB CONCETRATION (test code = MCHC) 30.0 gram/dL 33.0-36. 0 L RED CELL DISTRIBUTION WIDTH (test code = RDW) 14.0 % 11.6-16. 2 N PLATELET COUNT (test code = PLT) 344 K/mm3 150-450 N MEAN PLATELET VOLUME (test code = MPV) 9.4 fL 6.7-11.0 N [id number] 05:36:00* Test Item Value Reference Range Interpretation Comments GLUBED (test code = GLUBED) 119 mg/dL 74-106 H Performed by certified photogravure press operator at [facility] [id number] 05:35:00* Test Item Value Reference Range Interpretation Comments GLUBED (test code = GLUBED) 136 mg/dL 74-106 H Performed by certified photogravure press operator at [facility] BASIC METABOLIC [id number] 04:58:00* Test Item Value Reference Range Interpretation Comments SODIUM (test code = NA) 137 mmol/L 136-145 N POTASSIUM (test code = K) 4.2 mmol/L 3.5-5.1 N CHLORIDE (test code = CL) 101.0 mmol/L 98-107 N CARBON DIOXIDE (test code = CO2) 31.0 mmol/L 21-32 N ANION GAP (test code = GAP) 9.2 10-20 L GLUCOSE (test code = GLU) 110 mg/dL 74-106 H BLOOD UREA NITROGEN (test code = BUN) 20 mg/dL 7-18 H RESULT VERIFIED BY REPEAT ANALYSIS GLOMERULAR FILTRATION RATE (test code = GFR) 14 mL/min >=60 Estimated GFR by using Modified MDRD formula.Chronic kidney disease is defined as either kidney damageor GFR <60 mL/min/1.73 m2 for >3 months. CREATININE (test code = CREAT) 4.20 mg/dL 0.7-1.3 H BUN/CREATININE RATIO (test code = BUN/CREA) 4.8 10-20 L CALCIUM (test code = CA) 8.2 mg/dL 8.5-10.1 L BASIC METABOLIC [id number] 04:32:00* Test Item Value Reference Range Interpretation Comments SODIUM (test code = NA) 137 mmol/L 136-145 N POTASSIUM (test code = K) 4.2 mmol/L 3.5-5.1 N CHLORIDE (test code = CL) 101.0 mmol/L 98-107 N CARBON DIOXIDE (test code = CO2) mmol/L 21-32 ANION GAP (test code = GAP) 10-20 GLUCOSE (test code = GLU) mg/dL 74-106 BLOOD UREA NITROGEN (test code = BUN) mg/dL 7-18 GLOMERULAR FILTRATION RATE (test code = GFR) mL/min >=60 CREATININE (test code = CREAT) mg/dL 0.7-1.3 BUN/CREATININE RATIO (test code = BUN/CREA) 10-20 CALCIUM (test code = CA) 8.2 mg/dL 8.5-10.1 L BASIC METABOLIC [id number] 04:30:00* Test Item Value Reference Range Interpretation Comments SODIUM (test code = NA) 137 mmol/L 136-145 N POTASSIUM (test code = K) 4.2 mmol/L 3.5-5.1 N CHLORIDE (test code = CL) 101.0 mmol/L 98-107 N CARBON DIOXIDE (test code = CO2) mmol/L 21-32 ANION GAP (test code = GAP) 10-20 GLUCOSE (test code = GLU) mg/dL 74-106 BLOOD UREA NITROGEN (test code = BUN) mg/dL 7-18 GLOMERULAR FILTRATION RATE (test code = GFR) mL/min >=60 CREATININE (test code = CREAT) mg/dL 0.7-1.3 BUN/CREATININE RATIO (test code = BUN/CREA) 10-20 CALCIUM (test code = CA) mg/dL 8.5-10.1 - XR CHEST 1 [id number] 14:23:00 FAX: Silvia Payan MD [phone] [place]: B St: ADM Name: XOCHILT REYNA VINCENTROGERIOELICEO [facility] : [birth year] Age/S: 77/M [address] [facility] Unit #: [id number] Loc: V[address] [place] [address] Phys: Guille Liao MD Acct: [id number] Dis Date: Status: ADM IN PHONE #: [phone] Exam Date: 07/31/2018 1412 FAX #: [phone] Reason: DM; L foot gangrene; st.p. central line; EXAMS: CPT CODE: [id number] XR CHEST 1 V 30317 REASON FOR EXAM: DM; L foot gangrene; st.p. central line; EXAM ORDER DATE: 07/31/2018 2:00 PM Ordering MGeno: Guille Liao MD PROCEDURE: - XR CHEST 1 V COMPARISON: 08/08/2018 FINDINGS: Portable AP frontal view of the chest obtained at 2:12 PM shows clear lungs without evidence of consolidation. There is no evidence of effusion. The heart size is minimally enlarged. Pulmonary vasculatures are unremarkable. St able appearance of the left IJ dialysis catheter IMPRESSIO N: Status post placement of right IJ tunnel central line with the tip in the SVC at 5216 Reported and signed by: Earle Alvarado M.D. CC: Silvia Contreras MD Technologist: Tonja Albarado(Igor) Trncarenrd Date/Time/By: 2018 (0994) : By: FernandoVTL Orig Print D/T: S: 07/31/2018 (8035) PAGE 1 Signed Report FINGER/TOES AMP.,[id number] 11:09:00 RUN DATE: 07/31/18 [place] PAGE 1 RUN TIME: 1109 Specimen Inqui ry RUN USER: INTERFACE PATIENT: XOCHILT EPSTEIN ACCT #: [id number] LOC: [place] U #: [id number] AGE/SX: 77/M ROOM: [facility] RE06/22/18REG DR: Silvia Contreras MD : 40 BED: B DIS: STATUS: ADM IN TLOC: SPEC #: [id number] RECD: 07/22/18 STATUS: MARLO MANTILLA #: [id number] BERNARD: 07/19/18- [facility] DR: Lady Abraham PM ENTERED: 07/22/18 SP TYPE: FINGER/TOE OTHR DR: Hernando Encarnacion MD, Tsegaw MD Fahnbulleh MD,Lady Mehta DPM, David N MD [facility],Jaqueline Lake MD [facility],Reg HICKS [facility],Carrie murphy,Kwaku JohnsonORDERED: GROSS COPIES TO: Hernando Canales MD [address] [place] [address] Anabel Arambula MD [address] [place] [address] Albaro HICKS,Akira Menchaca [address] [place] [address] Lady Abraham DPM [address] [place] [address] Carrie Harper MD [address] [place] [address] Jaqueline Gee MD [address] [facility] [address] [place] [id number] CONTINUED ON NEXT PAGE RUN DATE: 07/31/18 [facility] PAGE 2 RUN TIME: 1109 Specimen Inquiry RUN USER: INTERFACE SPEC #: [id number] PATIENT: XOCHILT EPSTEIN #[id number] ([facility] ued) COPIES TO: (Continued) Reg Luke MD [address] [place] [address] Carrie Ballard MD [address] [place] [address] Kwaku Clement [address] [place] [address] PROCEDURES: GROSS (07/26/18-1349) TISSUE S: 1. GREAT TOE, NOS - LEFT 2. CALCANEUS, NOS - LEFT BONE CLINICAL HISTORY COLLECTION DATE: 07/19/18 OSTEOMYELITIS LEFT FOOT FINAL DIAGNOSIS Left hallux, amputation: SKIN WITH EPITHELIAL H YPERPLASIA, HYPERKERATOSIS AND AREA OF ULCERATION ASSOCIATED WITH GANG RENOUS NECROSIS EXTENDING INTO SUBCUTANEOUS TISSUE ACUTE INFLAMM ATION, PATCHY BONE NECROIS AND FAT NECROSIS IN TRABECULAR BONE/ACUTE OS TEOMYELITIS FATTY REPLACEMENT OF MARROW ELEMENTS CARTILAGE WITH DE GENERATIVE CHANGE UNREMARKABLE TRABECULAR BONE AT PROXIMAL MARGIN NEGATIVE FOR MALIGNANCY Left calcaneal bone, debridement: GANGRENOU S NECROSIS OF SOFT TISSUE WITH FOCAL EXTENSION OF INFLAMMATORY INFILTRA TE TO TRABECULAR BONE COMPATIBLE WITH ACUTE OSTEOMYELITIS FOCAL BONE NECR OSIS AND REACTIVE BONE FORMATION PRESENT NEGATIVE FOR MALIGNANCY RRB/sm CONTINUED ON NEXT PAGE -RUN DATE: 07/31/18 [place] My Visual Brief [facility] PAGE 3 RUN TIME: 1109 Specimen Inquiry RUN USER: INTERFACE SPEC #: [id number] PATIENT: XOCHILT EPSTEIN #[id number] (Continued) FINAL DIAGNOSIS (Continued) D [phone] MACROSCOPIC The first specime n is received in formalin, labeled with the patient's name, and identified as "left great toe bx". It consists of a great toe which has a black necrotic ap pearance including the nail bed area. The toe measures 7 cm from the tip of t he toe to the bony margin of resection. The bony margin has a smooth concave articular surface. The toe measures 3.8 cm in width by 2.8 cm in height. The toe nail is thickened and only partially attached to the toe. The necrotic a ynes occupies and area measuring 3.8 X 3.8 cm. After submitting a section of t he necrotic soft tissue for evaluation, the tissue is placed in decalcificatio n solution prior to further sampling. Section code: 1A, sample of the nec rotic soft tissue from the great toe; 1B, samples of the necrotic toe and bon e (decal); 1C, perpindicular section of the bone margin. The second spec imen is received in formalin, labeled with the patient's name, and identified as "left calcaneal bone bx". It consists of a ulcerated necrotic firm portion of skin and subcutaneous adipose tissue and a portion of bony tissue. The ne crotic skin and attached subcutaneous tissue measures 6.0 X 5.0 X up to 1 cm i n thickness. The bony tissue measures 5.3 x 3.3 x 1.4 cm and has some assistant housekeeping manager d fibrous tissue. After samples of the soft tissue are submitted for microsco pic evaluation the specimen is placed in decalcification. Section code: 1A , portions of soft tissue; 2B, sample of the bone tissue. GROSS PERFORMED AT [facility] [address] [place] [address] (p)[phone] MICROSCOPIC All of the stains, including any controls performed, stain appropriately. MICR OSCOPIC PERFORMED AT [facility] [address] [place] [address] ([phone] CONTINUED ON NEXT PAGE RUN DATE: 07/31/18 [facility] PAGE 4 RUN TIME: 1109 Specimen Inquiry RUN USER: INTERFACE SPEC #: [id number] PATIENT: XOCHILT EPSTEINARIEL #[id number] (Tonia henry) PERFORMING SITE Diagnosis performed at: [facility], JADON [address] [place] [address] Signed SIGNATURE ON FILE Doroteo Blake MD 07/31/18 1109 END OF REPORT BASIC METABOLIC [id number] 05:46:00* Test Item Value Reference Range Interpretation Comments SODIUM (test code = NA) 137 mmol/L 136-145 N POTASSIUM (test code = K) 4.3 mmol/L 3.5-5.1 N CHLORIDE (test code = CL) 101.0 mmol/L 98-107 N CARBON DIOXIDE (test code = CO2) 28.0 mmol/L 21-32 N ANION GAP (test code = GAP) 12.3 10-20 N GLUCOSE (test code = GLU) 174 mg/dL 74-106 H BLOOD UREA NITROGEN (test code = BUN) 35 mg/dL 7-18 H RESULT VERIFIED BY REPEAT ANALYSIS GLOMERULAR FILTRATION RATE (test code = GFR) 10 mL/min >=60 Estimated GFR by using Modified MDRD formula.Chronic kidney disease is defined as either kidney damageor GFR <60 mL/min/1.73 m2 for >3 months. CREATININE (test code = CREAT) 5.50 mg/dL 0.7-1.3 H BUN/CREATININE RATIO (test code = BUN/CREA) 6.4 10-20 L CALCIUM (test code = CA) 8.4 mg/dL 8.5-10.1 L BASIC METABOLIC [id number] 05:34:00* Test Item Value Reference Range Interpretation Comments SODIUM (test code = NA) 137 mmol/L 136-145 N POTASSIUM (test code = K) 4.3 mmol/L 3.5-5.1 N CHLORIDE (test code = CL) 101.0 mmol/L 98-107 N CARBON DIOXIDE (test code = CO2) mmol/L 21-32 ANION GAP (test code = GAP) 10-20 GLUCOSE (test code = GLU) mg/dL 74-106 BLOOD UREA NITROGEN (test code = BUN) mg/dL 7-18 GLOMERULAR FILTRATION RATE (test code = GFR) mL/min >=60 CREATININE (test code = CREAT) mg/dL 0.7-1.3 BUN/CREATININE RATIO (test code = BUN/CREA) 10-20 CALCIUM (test code = CA) mg/dL 8.5-10.1 CBC W/AUTO [id number] 05:44:00* Test Item Value Reference Range Interpretation Comments WHITE BLOOD CELL (test code = WBC) 7.8 K/mm3 4.5-12.5 N RED BLOOD CELL (test code = RBC) 2.91 mill/mm3 4.0-5.8 L HEMOGLOBIN (test code = HGB) 8.0 gram/dL 13.0-17.5 L HEMATOCRIT (test code = HCT) 27.0 % 42.0-52.0 L MEAN CELL VOLUME (test code = MCV) 92.8 fL 80-98 N MEAN CELL HGB (test code = MCH) 27.5 picogram 27.0-33.0 N MEAN CELL HGB CONCETRATION (test code = MCHC) 29.6 gram/dL 33.0-36. 0 L RED CELL DISTRIBUTION WIDTH (test code = RDW) 13.8 % 11.6-16. 2 N RED CELL DISTRIBUTION WIDTH SD (test code = RDW-SD) 46.3 fL 37 .0-51.0 N PLATELET COUNT (test code = PLT) 337 K/mm3 150-450 N MEAN PLATELET VOLUME (test code = MPV) 9.4 fL 6.7-11.0 N NEUTROPHIL % (test code = NT%) 77.2 % 39.0-69.0 H IMMATURE GRANULOCYTE % (test code = IG%) 1.5 % 0.0-5.0 N LYMPHOCYTE % (test code = LY%) 11.3 % 25.0-55.0 L MONOCYTE % (test code = MO%) 8.6 % 0.0-10.0 N EOSINOPHIL % (test code = EO%) 0.8 % 0.0-5.0 N BASOPHIL % (test code = BA%) 0.6 % 0.0-1.0 N NUCLEATED RBC % (test code = NRBC%) 0.0 % 0-0 N NEUTROPHIL # (test code = NT#) 5.99 K/mm3 1.8-7.7 N IMMATURE GRANULOCYTE # (test code = IG#) 0.12 x10 3/uL 0-0.03 H LYMPHOCYTE # (test code = LY#) 0.88 K/mm3 1.0-5.0 L MONOCYTE # (test code = MO#) 0.67 K/mm3 0-0.8 N EOSINOPHIL # (test code = EO#) 0.06 K/mm3 0.0-0.5 N BASOPHIL # (test code = BA#) 0.05 K/mm3 0.0-0.2 N NUCLEATED RBC # (test code = NRBC#) 0.00 K/mm3 0.0-0.1 N MANUAL DIFF REQUIRED (test code = MDIFF) NO, ONLY SCAN NEEDED DIFFERENTIAL [id number] 05:44:00* Test Item Value Reference Range Interpretation Comments STAIN ACCEPTABILITY (test code = STN ACCEPTABLE) STAIN ACCEPTABLE POLYCHROMASIA (test code = POLC) 1+ PLATELET ESTIMATE (test code = PLTEST) ADEQUATE PLATELET MORPHOLOGY (test code = PLTMORPH) SIZE VARIABLE BASIC METABOLIC [id number] 05:43:00* Test Item Value Reference Range Interpretation Comments SODIUM (test code = NA) 139 mmol/L 136-145 N POTASSIUM (test code = K) 4.0 mmol/L 3.5-5.1 N CHLORIDE (test code = CL) 102.0 mmol/L 98-107 N CARBON DIOXIDE (test code = CO2) 31.0 mmol/L 21-32 N ANION GAP (test code = GAP) 10.0 10-20 N GLUCOSE (test code = GLU) 154 mg/dL 74-106 H BLOOD UREA NITROGEN (test code = BUN) 25 mg/dL 7-18 H GLOMERULAR FILTRATION RATE (test code = GFR) 16 mL/min >=60 Estimated GFR by using Modified MDRD formula.Chronic kidney disease is defined as either kidney damageor GFR <60 mL/min/1.73 m2 for >3 months. CREATININE (test code = CREAT) 3.80 mg/dL 0.7-1.3 H BUN/CREATININE RATIO (test code = BUN/CREA) 6.6 10-20 L CALCIUM (test code = CA) 8.4 mg/dL 8.5-10.1 L BASIC METABOLIC [id number] 05:30:00* Test Item Value Reference Range Interpretation Comments SODIUM (test code = NA) 139 mmol/L 136-145 N POTASSIUM (test code = K) 4.0 mmol/L 3.5-5.1 N CHLORIDE (test code = CL) 102.0 mmol/L 98-107 N CARBON DIOXIDE (test code = CO2) mmol/L 21-32 ANION GAP (test code = GAP) 10-20 GLUCOSE (test code = GLU) mg/dL 74-106 BLOOD UREA NITROGEN (test code = BUN) mg/dL 7-18 GLOMERULAR FILTRATION RATE (test code = GFR) mL/min >=60 CREATININE (test code = CREAT) mg/dL 0.7-1.3 BUN/CREATININE RATIO (test code = BUN/CREA) 10-20 CALCIUM (test code = CA) mg/dL 8.5-10.1 CBC W/AUTO [id number] 05:07:00* Test Item Value Reference Range Interpretation Comments WHITE BLOOD CELL (test code = WBC) 7.8 K/mm3 4.5-12.5 N RED BLOOD CELL (test code = RBC) 2.91 mill/mm3 4.0-5.8 L HEMOGLOBIN (test code = HGB) 8.0 gram/dL 13.0-17.5 L HEMATOCRIT (test code = HCT) 27.0 % 42.0-52.0 L MEAN CELL VOLUME (test code = MCV) 92.8 fL 80-98 N MEAN CELL HGB (test code = MCH) 27.5 picogram 27.0-33.0 N MEAN CELL HGB CONCETRATION (test code = MCHC) 29.6 gram/dL 33.0-36. 0 L RED CELL DISTRIBUTION WIDTH (test code = RDW) 13.8 % 11.6-16. 2 N RED CELL DISTRIBUTION WIDTH SD (test code = RDW-SD) 46.3 fL 37 .0-51.0 N PLATELET COUNT (test code = PLT) 337 K/mm3 150-450 N MEAN PLATELET VOLUME (test code = MPV) 9.4 fL 6.7-11.0 N NEUTROPHIL % (test code = NT%) 77.2 % 39.0-69.0 H IMMATURE GRANULOCYTE % (test code = IG%) 1.5 % 0.0-5.0 N LYMPHOCYTE % (test code = LY%) 11.3 % 25.0-55.0 L MONOCYTE % (test code = MO%) 8.6 % 0.0-10.0 N EOSINOPHIL % (test code = EO%) 0.8 % 0.0-5.0 N BASOPHIL % (test code = BA%) 0.6 % 0.0-1.0 N NUCLEATED RBC % (test code = NRBC%) 0.0 % 0-0 N NEUTROPHIL # (test code = NT#) 5.99 K/mm3 1.8-7.7 N IMMATURE GRANULOCYTE # (test code = IG#) 0.12 x10 3/uL 0-0.03 H LYMPHOCYTE # (test code = LY#) 0.88 K/mm3 1.0-5.0 L MONOCYTE # (test code = MO#) 0.67 K/mm3 0-0.8 N EOSINOPHIL # (test code = EO#) 0.06 K/mm3 0.0-0.5 N BASOPHIL # (test code = BA#) 0.05 K/mm3 0.0-0.2 N NUCLEATED RBC # (test code = NRBC#) 0.00 K/mm3 0.0-0.1 N MANUAL DIFF REQUIRED (test code = MDIFF) NO, ONLY SCAN NEEDED DIFFERENTIAL [id number] 05:07:00* Test Item Value Reference Range Interpretation Comments STAIN ACCEPTABILITY (test code = STN ACCEPTABLE) CABOT RINGS (test code = CAB) MORPHOLOGY COMMENT (test code = MOC) PLATELET ESTIMATE (test code = PLTEST) PLATELET MORPHOLOGY (test code = PLTMORPH) CBC W/AUTO [id number] 05:07:00* Test Item Value Reference Range Interpretation Comments WHITE BLOOD CELL (test code = WBC) 7.8 K/mm3 4.5-12.5 N RED BLOOD CELL (test code = RBC) 2.91 mill/mm3 4.0-5.8 L HEMOGLOBIN (test code = HGB) 8.0 gram/dL 13.0-17.5 L HEMATOCRIT (test code = HCT) 27.0 % 42.0-52.0 L MEAN CELL VOLUME (test code = MCV) 92.8 fL 80-98 N MEAN CELL HGB (test code = MCH) 27.5 picogram 27.0-33.0 N MEAN CELL HGB CONCETRATION (test code = MCHC) 29.6 gram/dL 33.0-36. 0 L RED CELL DISTRIBUTION WIDTH (test code = RDW) 13.8 % 11.6-16. 2 N RED CELL DISTRIBUTION WIDTH SD (test code = RDW-SD) 46.3 fL 37 .0-51.0 N PLATELET COUNT (test code = PLT) 337 K/mm3 150-450 N MEAN PLATELET VOLUME (test code = MPV) 9.4 fL 6.7-11.0 N NEUTROPHIL % (test code = NT%) 77.2 % 39.0-69.0 H IMMATURE GRANULOCYTE % (test code = IG%) 1.5 % 0.0-5.0 N LYMPHOCYTE % (test code = LY%) 11.3 % 25.0-55.0 L MONOCYTE % (test code = MO%) 8.6 % 0.0-10.0 N EOSINOPHIL % (test code = EO%) 0.8 % 0.0-5.0 N BASOPHIL % (test code = BA%) 0.6 % 0.0-1.0 N NUCLEATED RBC % (test code = NRBC%) 0.0 % 0-0 N NEUTROPHIL # (test code = NT#) 5.99 K/mm3 1.8-7.7 N IMMATURE GRANULOCYTE # (test code = IG#) 0.12 x10 3/uL 0-0.03 H LYMPHOCYTE # (test code = LY#) 0.88 K/mm3 1.0-5.0 L MONOCYTE # (test code = MO#) 0.67 K/mm3 0-0.8 N EOSINOPHIL # (test code = EO#) 0.06 K/mm3 0.0-0.5 N BASOPHIL # (test code = BA#) 0.05 K/mm3 0.0-0.2 N NUCLEATED RBC # (test code = NRBC#) 0.00 K/mm3 0.0-0.1 N MANUAL DIFF REQUIRED (test code = MDIFF) NO, ONLY SCAN NEEDED DIFFERENTIAL [id number] 05:07:00* Test Item Value Reference Range Interpretation Comments STAIN ACCEPTABILITY (test code = STN ACCEPTABLE) MORPHOLOGY COMMENT (test code = MOC) PLATELET ESTIMATE (test code = PLTEST) PLATELET MORPHOLOGY (test code = PLTMORPH) CBC W/AUTO [id number] 05:06:00* Test Item Value Reference Range Interpretation Comments WHITE BLOOD CELL (test code = WBC) 7.8 K/mm3 4.5-12.5 N RED BLOOD CELL (test code = RBC) 2.91 mill/mm3 4.0-5.8 L HEMOGLOBIN (test code = HGB) 8.0 gram/dL 13.0-17.5 L HEMATOCRIT (test code = HCT) 27.0 % 42.0-52.0 L MEAN CELL VOLUME (test code = MCV) 92.8 fL 80-98 N MEAN CELL HGB (test code = MCH) 27.5 picogram 27.0-33.0 N MEAN CELL HGB CONCETRATION (test code = MCHC) 29.6 gram/dL 33.0-36. 0 L RED CELL DISTRIBUTION WIDTH (test code = RDW) 13.8 % 11.6-16. 2 N RED CELL DISTRIBUTION WIDTH SD (test code = RDW-SD) 46.3 fL 37 .0-51.0 N PLATELET COUNT (test code = PLT) 337 K/mm3 150-450 N MEAN PLATELET VOLUME (test code = MPV) 9.4 fL 6.7-11.0 N NEUTROPHIL % (test code = NT%) 77.2 % 39.0-69.0 H IMMATURE GRANULOCYTE % (test code = IG%) 1.5 % 0.0-5.0 N LYMPHOCYTE % (test code = LY%) 11.3 % 25.0-55.0 L MONOCYTE % (test code = MO%) 8.6 % 0.0-10.0 N EOSINOPHIL % (test code = EO%) 0.8 % 0.0-5.0 N BASOPHIL % (test code = BA%) 0.6 % 0.0-1.0 N NUCLEATED RBC % (test code = NRBC%) 0.0 % 0-0 N NEUTROPHIL # (test code = NT#) 5.99 K/mm3 1.8-7.7 N IMMATURE GRANULOCYTE # (test code = IG#) 0.12 x10 3/uL 0-0.03 H LYMPHOCYTE # (test code = LY#) 0.88 K/mm3 1.0-5.0 L MONOCYTE # (test code = MO#) 0.67 K/mm3 0-0.8 N EOSINOPHIL # (test code = EO#) 0.06 K/mm3 0.0-0.5 N BASOPHIL # (test code = BA#) 0.05 K/mm3 0.0-0.2 N NUCLEATED RBC # (test code = NRBC#) 0.00 K/mm3 0.0-0.1 N MANUAL DIFF REQUIRED (test code = MDIFF) NO, ONLY SCAN NEEDED DIFFERENTIAL [id number] 05:06:00* Test Item Value Reference Range Interpretation Comments STAIN ACCEPTABILITY (test code = STN ACCEPTABLE) CABOT RINGS (test code = CAB) MORPHOLOGY COMMENT (test code = MOC) PLATELET ESTIMATE (test code = PLTEST) PLATELET MORPHOLOGY (test code = PLTMORPH) CBC W/AUTO [id number] 05:06:00* Test Item Value Reference Range Interpretation Comments WHITE BLOOD CELL (test code = WBC) 7.8 K/mm3 4.5-12.5 N RED BLOOD CELL (test code = RBC) 2.91 mill/mm3 4.0-5.8 L HEMOGLOBIN (test code = HGB) 8.0 gram/dL 13.0-17.5 L HEMATOCRIT (test code = HCT) 27.0 % 42.0-52.0 L MEAN CELL VOLUME (test code = MCV) 92.8 fL 80-98 N MEAN CELL HGB (test code = MCH) 27.5 picogram 27.0-33.0 N MEAN CELL HGB CONCETRATION (test code = MCHC) 29.6 gram/dL 33.0-36. 0 L RED CELL DISTRIBUTION WIDTH (test code = RDW) 13.8 % 11.6-16. 2 N RED CELL DISTRIBUTION WIDTH SD (test code = RDW-SD) 46.3 fL 37 .0-51.0 N PLATELET COUNT (test code = PLT) 337 K/mm3 150-450 N MEAN PLATELET VOLUME (test code = MPV) 9.4 fL 6.7-11.0 N NEUTROPHIL % (test code = NT%) 77.2 % 39.0-69.0 H IMMATURE GRANULOCYTE % (test code = IG%) 1.5 % 0.0-5.0 N LYMPHOCYTE % (test code = LY%) 11.3 % 25.0-55.0 L MONOCYTE % (test code = MO%) 8.6 % 0.0-10.0 N EOSINOPHIL % (test code = EO%) 0.8 % 0.0-5.0 N BASOPHIL % (test code = BA%) 0.6 % 0.0-1.0 N NUCLEATED RBC % (test code = NRBC%) 0.0 % 0-0 N NEUTROPHIL # (test code = NT#) 5.99 K/mm3 1.8-7.7 N IMMATURE GRANULOCYTE # (test code = IG#) 0.12 x10 3/uL 0-0.03 H LYMPHOCYTE # (test code = LY#) 0.88 K/mm3 1.0-5.0 L MONOCYTE # (test code = MO#) 0.67 K/mm3 0-0.8 N EOSINOPHIL # (test code = EO#) 0.06 K/mm3 0.0-0.5 N BASOPHIL # (test code = BA#) 0.05 K/mm3 0.0-0.2 N NUCLEATED RBC # (test code = NRBC#) 0.00 K/mm3 0.0-0.1 N MANUAL DIFF REQUIRED (test code = MDIFF) NO, ONLY SCAN NEEDED DIFFERENTIAL [id number] 05:06:00* Test Item Value Reference Range Interpretation Comments STAIN ACCEPTABILITY (test code = STN ACCEPTABLE) CABOT RINGS (test code = CAB) MORPHOLOGY COMMENT (test code = MOC) PLATELET ESTIMATE (test code = PLTEST) PLATELET MORPHOLOGY (test code = PLTMORPH) [id number] 21:08:00* Test Item Value Reference Range Interpretation Comments GLUBED (test code = GLUBED) 279 mg/dL 74-106 H Performed by certified photogravure press operator at [facility] [id number] 16:53:00* Test Item Value Reference Range Interpretation Comments GLUBED (test code = GLUBED) 161 mg/dL 74-106 H Performed by certified photogravure press operator at [facility] - XR CHEST 1 [id number] 10:30:00 FAX: Silvia Payan MD [phone] [place]: St: ADM Name: XOCHILT REYNA [facility] : 11/21/18 41 Age/S: 77/M [address] Unit #: [id number] Loc: V.[address] [place] [address] Phys: Guille Liao MD Acct: [id number] Dis Date: Status: ADM IN PHONE #: [phone] Exam Date: 07/29/2018 1023 FAX #: [phone] Reason: ESRD; [facility]; EXAMS: CPT CODE: [id number] XR CHEST 1 V [id number] HISTORY: ESRD and catheter placement. COMPARISON: July 22, 2018. Right central line is unchanged. New left jugular catheter with tip projected over the SVC and right atrial junction. No pneumothorax. Suboptimal inspiration. Dependent changes. No acute infiltrates, effusion or congestion. Cardiomegaly. IMPRESSION: New left dialysis catheter with the tip projected over the cavoatrial junction without pneumothorax. at 1030 Reported and signed by: Atif David M.D. CC: Silvia Contreras MD Technologist: Tonja Albarado(R) Trnscrd Date/Time/By: 9 (1030) : By: [email or web address] Orig Print D/T: S: 07/29/2018 ([id number]) PAGE 1 Signed Report CBC W/AUTO [id number] 05:55:00* Test Item Value Reference Range Interpretation Comments WHITE BLOOD CELL (test code = WBC) 7.8 K/mm3 4.5-12.5 N RED BLOOD CELL (test code = RBC) 3.01 mill/mm3 4.0-5.8 L HEMOGLOBIN (test code = HGB) 8.3 gram/dL 13.0-17.5 L HEMATOCRIT (test code = HCT) 28.1 % 42.0-52.0 L MEAN CELL VOLUME (test code = MCV) 93.4 fL 80-98 N MEAN CELL HGB (test code = MCH) 27.6 picogram 27.0-33.0 N MEAN CELL HGB CONCETRATION (test code = MCHC) 29.5 gram/dL 33.0-36. 0 L RED CELL DISTRIBUTION WIDTH (test code = RDW) 13.9 % 11.6-16. 2 N RED CELL DISTRIBUTION WIDTH SD (test code = RDW-SD) 47.1 fL 37 .0-51.0 N PLATELET COUNT (test code = PLT) 321 K/mm3 150-450 N MEAN PLATELET VOLUME (test code = MPV) 9.6 fL 6.7-11.0 N NEUTROPHIL % (test code = NT%) 75.5 % 39.0-69.0 H IMMATURE GRANULOCYTE % (test code = IG%) 1.9 % 0.0-5.0 N LYMPHOCYTE % (test code = LY%) 12.5 % 25.0-55.0 L MONOCYTE % (test code = MO%) 6.9 % 0.0-10.0 N EOSINOPHIL % (test code = EO%) 2.4 % 0.0-5.0 N BASOPHIL % (test code = BA%) 0.8 % 0.0-1.0 N NUCLEATED RBC % (test code = NRBC%) 0.0 % 0-0 N NEUTROPHIL # (test code = NT#) 5.86 K/mm3 1.8-7.7 N IMMATURE GRANULOCYTE # (test code = IG#) 0.15 x10 3/uL 0-0.03 H LYMPHOCYTE # (test code = LY#) 0.97 K/mm3 1.0-5.0 L MONOCYTE # (test code = MO#) 0.54 K/mm3 0-0.8 N EOSINOPHIL # (test code = EO#) 0.19 K/mm3 0.0-0.5 N BASOPHIL # (test code = BA#) 0.06 K/mm3 0.0-0.2 N NUCLEATED RBC # (test code = NRBC#) 0.00 K/mm3 0.0-0.1 N MANUAL DIFF REQUIRED (test code = MDIFF) NO, ONLY SCAN NEEDED DIFFERENTIAL [id number] 05:55:00* Test Item Value Reference Range Interpretation Comments STAIN ACCEPTABILITY (test code = STN ACCEPTABLE) STAIN ACCEPTABLE POIKILOCYTOSIS (test code = POIK) 1+ PLATELET ESTIMATE (test code = PLTEST) ADEQUATE PLATELET MORPHOLOGY (test code = PLTMORPH) SIZE VARIABLE BASIC METABOLIC [id number] 05:48:00* Test Item Value Reference Range Interpretation Comments SODIUM (test code = NA) 139 mmol/L 136-145 N POTASSIUM (test code = K) 4.3 mmol/L 3.5-5.1 N CHLORIDE (test code = CL) 105.0 mmol/L 98-107 N CARBON DIOXIDE (test code = CO2) 25.0 mmol/L 21-32 N ANION GAP (test code = GAP) 13.3 10-20 N GLUCOSE (test code = GLU) 223 mg/dL 74-106 H BLOOD UREA NITROGEN (test code = BUN) 45 mg/dL 7-18 H RESULT VERIFIED BY REPEAT ANALYSIS GLOMERULAR FILTRATION RATE (test code = GFR) 9 mL/min >=60 Estimated GFR by using Modified MDRD formula.Chronic kidney disease is defined as either kidney damageor GFR <60 mL/min/1.73 m2 for >3 months. CREATININE (test code = CREAT) 5.90 mg/dL 0.7-1.3 H BUN/CREATININE RATIO (test code = BUN/CREA) 7.6 10-20 L CALCIUM (test code = CA) 8.2 mg/dL 8.5-10.1 L [id number] 05:40:00* Test Item Value Reference Range Interpretation Comments GLUBED (test code = GLUBED) 210 mg/dL 74-106 H Performed by certified photogravure press operator at [facility] CBC W/AUTO [id number] 05:16:00* Test Item Value Reference Range Interpretation Comments WHITE BLOOD CELL (test code = WBC) 7.8 K/mm3 4.5-12.5 N RED BLOOD CELL (test code = RBC) 3.01 mill/mm3 4.0-5.8 L HEMOGLOBIN (test code = HGB) 8.3 gram/dL 13.0-17.5 L HEMATOCRIT (test code = HCT) 28.1 % 42.0-52.0 L MEAN CELL VOLUME (test code = MCV) 93.4 fL 80-98 N MEAN CELL HGB (test code = MCH) 27.6 picogram 27.0-33.0 N MEAN CELL HGB CONCETRATION (test code = MCHC) 29.5 gram/dL 33.0-36. 0 L RED CELL DISTRIBUTION WIDTH (test code = RDW) 13.9 % 11.6-16. 2 N RED CELL DISTRIBUTION WIDTH SD (test code = RDW-SD) 47.1 fL 37 .0-51.0 N PLATELET COUNT (test code = PLT) 321 K/mm3 150-450 N MEAN PLATELET VOLUME (test code = MPV) 9.6 fL 6.7-11.0 N NEUTROPHIL % (test code = NT%) 75.5 % 39.0-69.0 H IMMATURE GRANULOCYTE % (test code = IG%) 1.9 % 0.0-5.0 N LYMPHOCYTE % (test code = LY%) 12.5 % 25.0-55.0 L MONOCYTE % (test code = MO%) 6.9 % 0.0-10.0 N EOSINOPHIL % (test code = EO%) 2.4 % 0.0-5.0 N BASOPHIL % (test code = BA%) 0.8 % 0.0-1.0 N NUCLEATED RBC % (test code = NRBC%) 0.0 % 0-0 N NEUTROPHIL # (test code = NT#) 5.86 K/mm3 1.8-7.7 N IMMATURE GRANULOCYTE # (test code = IG#) 0.15 x10 3/uL 0-0.03 H LYMPHOCYTE # (test code = LY#) 0.97 K/mm3 1.0-5.0 L MONOCYTE # (test code = MO#) 0.54 K/mm3 0-0.8 N EOSINOPHIL # (test code = EO#) 0.19 K/mm3 0.0-0.5 N BASOPHIL # (test code = BA#) 0.06 K/mm3 0.0-0.2 N NUCLEATED RBC # (test code = NRBC#) 0.00 K/mm3 0.0-0.1 N MANUAL DIFF REQUIRED (test code = MDIFF) NO, ONLY SCAN NEEDED DIFFERENTIAL [id number] 05:16:00* Test Item Value Reference Range Interpretation Comments STAIN ACCEPTABILITY (test code = STN ACCEPTABLE) CABOT RINGS (test code = CAB) MORPHOLOGY COMMENT (test code = MOC) PLATELET ESTIMATE (test code = PLTEST) PLATELET MORPHOLOGY (test code = PLTMORPH) CBC W/AUTO [id number] 05:16:00* Test Item Value Reference Range Interpretation Comments WHITE BLOOD CELL (test code = WBC) 7.8 K/mm3 4.5-12.5 N RED BLOOD CELL (test code = RBC) 3.01 mill/mm3 4.0-5.8 L HEMOGLOBIN (test code = HGB) 8.3 gram/dL 13.0-17.5 L HEMATOCRIT (test code = HCT) 28.1 % 42.0-52.0 L MEAN CELL VOLUME (test code = MCV) 93.4 fL 80-98 N MEAN CELL HGB (test code = MCH) 27.6 picogram 27.0-33.0 N MEAN CELL HGB CONCETRATION (test code = MCHC) 29.5 gram/dL 33.0-36. 0 L RED CELL DISTRIBUTION WIDTH (test code = RDW) 13.9 % 11.6-16. 2 N RED CELL DISTRIBUTION WIDTH SD (test code = RDW-SD) 47.1 fL 37 .0-51.0 N PLATELET COUNT (test code = PLT) 321 K/mm3 150-450 N MEAN PLATELET VOLUME (test code = MPV) 9.6 fL 6.7-11.0 N NEUTROPHIL % (test code = NT%) 75.5 % 39.0-69.0 H IMMATURE GRANULOCYTE % (test code = IG%) 1.9 % 0.0-5.0 N LYMPHOCYTE % (test code = LY%) 12.5 % 25.0-55.0 L MONOCYTE % (test code = MO%) 6.9 % 0.0-10.0 N EOSINOPHIL % (test code = EO%) 2.4 % 0.0-5.0 N BASOPHIL % (test code = BA%) 0.8 % 0.0-1.0 N NUCLEATED RBC % (test code = NRBC%) 0.0 % 0-0 N NEUTROPHIL # (test code = NT#) 5.86 K/mm3 1.8-7.7 N IMMATURE GRANULOCYTE # (test code = IG#) 0.15 x10 3/uL 0-0.03 H LYMPHOCYTE # (test code = LY#) 0.97 K/mm3 1.0-5.0 L MONOCYTE # (test code = MO#) 0.54 K/mm3 0-0.8 N EOSINOPHIL # (test code = EO#) 0.19 K/mm3 0.0-0.5 N BASOPHIL # (test code = BA#) 0.06 K/mm3 0.0-0.2 N NUCLEATED RBC # (test code = NRBC#) 0.00 K/mm3 0.0-0.1 N MANUAL DIFF REQUIRED (test code = MDIFF) NO, ONLY SCAN NEEDED DIFFERENTIAL [id number] 05:16:00* Test Item Value Reference Range Interpretation Comments STAIN ACCEPTABILITY (test code = STN ACCEPTABLE) CABOT RINGS (test code = CAB) MORPHOLOGY COMMENT (test code = MOC) PLATELET ESTIMATE (test code = PLTEST) PLATELET MORPHOLOGY (test code = PLTMORPH) CBC W/AUTO [id number] 05:16:00* Test Item Value Reference Range Interpretation Comments WHITE BLOOD CELL (test code = WBC) 7.8 K/mm3 4.5-12.5 N RED BLOOD CELL (test code = RBC) 3.01 mill/mm3 4.0-5.8 L HEMOGLOBIN (test code = HGB) 8.3 gram/dL 13.0-17.5 L HEMATOCRIT (test code = HCT) 28.1 % 42.0-52.0 L MEAN CELL VOLUME (test code = MCV) 93.4 fL 80-98 N MEAN CELL HGB (test code = MCH) 27.6 picogram 27.0-33.0 N MEAN CELL HGB CONCETRATION (test code = MCHC) 29.5 gram/dL 33.0-36. 0 L RED CELL DISTRIBUTION WIDTH (test code = RDW) 13.9 % 11.6-16. 2 N RED CELL DISTRIBUTION WIDTH SD (test code = RDW-SD) 47.1 fL 37 .0-51.0 N PLATELET COUNT (test code = PLT) 321 K/mm3 150-450 N MEAN PLATELET VOLUME (test code = MPV) 9.6 fL 6.7-11.0 N NEUTROPHIL % (test code = NT%) 75.5 % 39.0-69.0 H IMMATURE GRANULOCYTE % (test code = IG%) 1.9 % 0.0-5.0 N LYMPHOCYTE % (test code = LY%) 12.5 % 25.0-55.0 L MONOCYTE % (test code = MO%) 6.9 % 0.0-10.0 N EOSINOPHIL % (test code = EO%) 2.4 % 0.0-5.0 N BASOPHIL % (test code = BA%) 0.8 % 0.0-1.0 N NUCLEATED RBC % (test code = NRBC%) 0.0 % 0-0 N NEUTROPHIL # (test code = NT#) 5.86 K/mm3 1.8-7.7 N IMMATURE GRANULOCYTE # (test code = IG#) 0.15 x10 3/uL 0-0.03 H LYMPHOCYTE # (test code = LY#) 0.97 K/mm3 1.0-5.0 L MONOCYTE # (test code = MO#) 0.54 K/mm3 0-0.8 N EOSINOPHIL # (test code = EO#) 0.19 K/mm3 0.0-0.5 N BASOPHIL # (test code = BA#) 0.06 K/mm3 0.0-0.2 N NUCLEATED RBC # (test code = NRBC#) 0.00 K/mm3 0.0-0.1 N MANUAL DIFF REQUIRED (test code = MDIFF) NO, ONLY SCAN NEEDED DIFFERENTIAL [id number] 05:16:00* Test Item Value Reference Range Interpretation Comments STAIN ACCEPTABILITY (test code = STN ACCEPTABLE) MORPHOLOGY COMMENT (test code = MOC) PLATELET ESTIMATE (test code = PLTEST) PLATELET MORPHOLOGY (test code = PLTMORPH) CBC W/AUTO [id number] 05:16:00* Test Item Value Reference Range Interpretation Comments WHITE BLOOD CELL (test code = WBC) 7.8 K/mm3 4.5-12.5 N RED BLOOD CELL (test code = RBC) 3.01 mill/mm3 4.0-5.8 L HEMOGLOBIN (test code = HGB) 8.3 gram/dL 13.0-17.5 L HEMATOCRIT (test code = HCT) 28.1 % 42.0-52.0 L MEAN CELL VOLUME (test code = MCV) 93.4 fL 80-98 N MEAN CELL HGB (test code = MCH) 27.6 picogram 27.0-33.0 N MEAN CELL HGB CONCETRATION (test code = MCHC) 29.5 gram/dL 33.0-36. 0 L RED CELL DISTRIBUTION WIDTH (test code = RDW) 13.9 % 11.6-16. 2 N RED CELL DISTRIBUTION WIDTH SD (test code = RDW-SD) 47.1 fL 37 .0-51.0 N PLATELET COUNT (test code = PLT) 321 K/mm3 150-450 N MEAN PLATELET VOLUME (test code = MPV) 9.6 fL 6.7-11.0 N NEUTROPHIL % (test code = NT%) 75.5 % 39.0-69.0 H IMMATURE GRANULOCYTE % (test code = IG%) 1.9 % 0.0-5.0 N LYMPHOCYTE % (test code = LY%) 12.5 % 25.0-55.0 L MONOCYTE % (test code = MO%) 6.9 % 0.0-10.0 N EOSINOPHIL % (test code = EO%) 2.4 % 0.0-5.0 N BASOPHIL % (test code = BA%) 0.8 % 0.0-1.0 N NUCLEATED RBC % (test code = NRBC%) 0.0 % 0-0 N NEUTROPHIL # (test code = NT#) 5.86 K/mm3 1.8-7.7 N IMMATURE GRANULOCYTE # (test code = IG#) 0.15 x10 3/uL 0-0.03 H LYMPHOCYTE # (test code = LY#) 0.97 K/mm3 1.0-5.0 L MONOCYTE # (test code = MO#) 0.54 K/mm3 0-0.8 N EOSINOPHIL # (test code = EO#) 0.19 K/mm3 0.0-0.5 N BASOPHIL # (test code = BA#) 0.06 K/mm3 0.0-0.2 N NUCLEATED RBC # (test code = NRBC#) 0.00 K/mm3 0.0-0.1 N MANUAL DIFF REQUIRED (test code = MDIFF) NO, ONLY SCAN NEEDED DIFFERENTIAL [id number] 05:16:00* Test Item Value Reference Range Interpretation Comments STAIN ACCEPTABILITY (test code = STN ACCEPTABLE) CABOT RINGS (test code = CAB) MORPHOLOGY COMMENT (test code = MOC) PLATELET ESTIMATE (test code = PLTEST) PLATELET MORPHOLOGY (test code = PLTMORPH) [id number] 20:18:00* Test Item Value Reference Range Interpretation Comments GLUBED (test code = GLUBED) 214 mg/dL 74-106 H Performed by certified photogravure press operator at [facility] [id number] 15:46:00* Test Item Value Reference Range Interpretation Comments GLUBED (test code = GLUBED) 141 mg/dL 74-106 H Performed by certified photogravure press operator at [facility] [id number] 10:43:00* Test Item Value Reference Range Interpretation Comments GLUBED (test code = GLUBED) 107 mg/dL 74-106 H Performed by certified photogravure press operator at [facility] BASIC METABOLIC [id number] 07:15:00* Test Item Value Reference Range Interpretation Comments SODIUM (test code = NA) 140 mmol/L 136-145 N POTASSIUM (test code = K) 4.0 mmol/L 3.5-5.1 N CHLORIDE (test code = CL) 105.0 mmol/L 98-107 N CARBON DIOXIDE (test code = CO2) 27.0 mmol/L 21-32 N ANION GAP (test code = GAP) 12.0 10-20 N GLUCOSE (test code = GLU) 140 mg/dL 74-106 H BLOOD UREA NITROGEN (test code = BUN) 35 mg/dL 7-18 H RESULT VERIFIED BY REPEAT ANALYSIS GLOMERULAR FILTRATION RATE (test code = GFR) 12 mL/min >=60 Estimated GFR by using Modified MDRD formula.Chronic kidney disease is defined as either kidney damageor GFR <60 mL/min/1.73 m2 for >3 months. CREATININE (test code = CREAT) 4.80 mg/dL 0.7-1.3 H BUN/CREATININE RATIO (test code = BUN/CREA) 7.3 10-20 L CALCIUM (test code = CA) 8.0 mg/dL 8.5-10.1 L CBC W/AUTO [id number] 07:07:00* Test Item Value Reference Range Interpretation Comments WHITE BLOOD CELL (test code = WBC) 8.0 K/mm3 4.5-12.5 N RED BLOOD CELL (test code = RBC) 2.82 mill/mm3 4.0-5.8 L HEMOGLOBIN (test code = HGB) 7.6 gram/dL 13.0-17.5 L HEMATOCRIT (test code = HCT) 26.1 % 42.0-52.0 L MEAN CELL VOLUME (test code = MCV) 92.6 fL 80-98 N MEAN CELL HGB (test code = MCH) 27.0 picogram 27.0-33.0 N MEAN CELL HGB CONCETRATION (test code = MCHC) 29.1 gram/dL 33.0-36. 0 L RED CELL DISTRIBUTION WIDTH (test code = RDW) 13.9 % 11.6-16. 2 N RED CELL DISTRIBUTION WIDTH SD (test code = RDW-SD) 46.7 fL 37 .0-51.0 N PLATELET COUNT (test code = PLT) 317 K/mm3 150-450 N MEAN PLATELET VOLUME (test code = MPV) 9.5 fL 6.7-11.0 N NEUTROPHIL % (test code = NT%) 74.1 % 39.0-69.0 H IMMATURE GRANULOCYTE % (test code = IG%) 2.6 % 0.0-5.0 N LYMPHOCYTE % (test code = LY%) 13.2 % 25.0-55.0 L MONOCYTE % (test code = MO%) 6.9 % 0.0-10.0 N EOSINOPHIL % (test code = EO%) 2.6 % 0.0-5.0 N BASOPHIL % (test code = BA%) 0.6 % 0.0-1.0 N NUCLEATED RBC % (test code = NRBC%) 0.0 % 0-0 N NEUTROPHIL # (test code = NT#) 5.93 K/mm3 1.8-7.7 N IMMATURE GRANULOCYTE # (test code = IG#) 0.21 x10 3/uL 0-0.03 H LYMPHOCYTE # (test code = LY#) 1.06 K/mm3 1.0-5.0 N MONOCYTE # (test code = MO#) 0.55 K/mm3 0-0.8 N EOSINOPHIL # (test code = EO#) 0.21 K/mm3 0.0-0.5 N BASOPHIL # (test code = BA#) 0.05 K/mm3 0.0-0.2 N NUCLEATED RBC # (test code = NRBC#) 0.00 K/mm3 0.0-0.1 N MANUAL DIFF REQUIRED (test code = MDIFF) NO BASIC METABOLIC [id number] 07:03:00* Test Item Value Reference Range Interpretation Comments SODIUM (test code = NA) 140 mmol/L 136-145 N POTASSIUM (test code = K) 4.0 mmol/L 3.5-5.1 N CHLORIDE (test code = CL) 105.0 mmol/L 98-107 N CARBON DIOXIDE (test code = CO2) mmol/L 21-32 ANION GAP (test code = GAP) 10-20 GLUCOSE (test code = GLU) mg/dL 74-106 BLOOD UREA NITROGEN (test code = BUN) mg/dL 7-18 GLOMERULAR FILTRATION RATE (test code = GFR) mL/min >=60 CREATININE (test code = CREAT) mg/dL 0.7-1.3 BUN/CREATININE RATIO (test code = BUN/CREA) 10-20 CALCIUM (test code = CA) mg/dL 8.5-10.1 PROTHROMBIN [id number] 06:54:00* Test Item Value Reference Range Interpretation Comments PROTHROMBIN TIME PATIENT (test code = PTP) 13.3 seconds 9.0-14.0 N INTERNATIONAL NORMAL RATIO (test code = INR) 1.1 0.8-1.2 N The therapeutic range for oral anticoagulant therapy formost indications is an international normalized ratio (INR)of between 2.0 and 3.0. The recommended therapeutic INRrange for various clinical situations is listed below: Clinical Situation INR range Pulmonary e mbolism treatment (2.0-3.0)Venous thrombosis treatmentVenous thrombosis prophylaxis (high risk surgery)Prevention of systemic embolism from: Acute myocardial infarction Valvular heart disease Atrial fibrillation Mechanical prosthetic heart valves (2.5-3.5) IS PATIENT ON ANTICOAGULANTS? YLIST ANTICOAGULANTS ASPIRINTHROMBOPLASTIN TIME [id number] 06:54:00* Test Item Value Reference Range Interpretation Comments THROMBOPLASTIN TIME PARTIAL (test code = PTT) 31.3 seconds 25.0-36. 5 N IS PATIENT ON ANTICOAGULANTS? YLIST ANTICOAGULANTS [id number] 05:16:00* Test Item Value Reference Range Interpretation Comments GLUBED (test code = GLUBED) 141 mg/dL 74-106 H Performed by certified photogravure press operator at [facility] [id number] 20:30:00* Test Item Value Reference Range Interpretation Comments GLUBED (test code = GLUBED) 266 mg/dL 74-106 H Performed by certified photogravure press operator at [facility] [id number] 16:38:00* Test Item Value Reference Range Interpretation Comments GLUBED (test code = GLUBED) 225 mg/dL 74-106 H Performed by certified photogravure press operator at [facility] [id number] 12:37:00* Test Item Value Reference Range Interpretation Comments GLUBED (test code = GLUBED) 193 mg/dL 74-106 H Performed by certified photogravure press operator at [facility] [id number] 12:29:00* Test Item Value Reference Range Interpretation Comments GLUBED (test code = GLUBED) 266 mg/dL 74-106 H Performed by certified photogravure press operator at [facility] [id number]-[id number] 08:42:00* Test Item Value Reference Range Interpretation Comments CREATINE KINASE (CK) (test code = CK) 21 IUnit/L 26-208 L CKMB (test code = CKMBT) < 1.0 ng/mL 0-6.0 N RELATIVE % INDEX (test code = REL%) 4.76 % 0.00-2.50 H "If the total CK is elevated, the CKMB Fraction must beinterpreted as a Relative % Index, Normal is less than 2.5%"NOTE: Relative % Index is not valid with a normal total CK. BASIC METABOLIC [id number] 08:28:00* Test Item Value Reference Range Interpretation Comments SODIUM (test code = NA) 140 mmol/L 136-145 N POTASSIUM (test code = K) 4.3 mmol/L 3.5-5.1 N CHLORIDE (test code = CL) 104.0 mmol/L 98-107 N CARBON DIOXIDE (test code = CO2) 29.0 mmol/L 21-32 N ANION GAP (test code = GAP) 11.3 10-20 N GLUCOSE (test code = GLU) 219 mg/dL 74-106 H BLOOD UREA NITROGEN (test code = BUN) 23 mg/dL 7-18 H GLOMERULAR FILTRATION RATE (test code = GFR) 15 mL/min >=60 Estimated GFR by using Modified MDRD formula.Chronic kidney disease is defined as either kidney damageor GFR <60 mL/min/1.73 m2 for >3 months. CREATININE (test code = CREAT) 3.90 mg/dL 0.7-1.3 H BUN/CREATININE RATIO (test code = BUN/CREA) 5.9 10-20 L CALCIUM (test code = CA) 8.1 mg/dL 8.5-10.1 L CBC W/AUTO [id number] 07:20:00* Test Item Value Reference Range Interpretation Comments WHITE BLOOD CELL (test code = WBC) 8.6 K/mm3 4.5-12.5 N RED BLOOD CELL (test code = RBC) 3.05 mill/mm3 4.0-5.8 L HEMOGLOBIN (test code = HGB) 8.3 gram/dL 13.0-17.5 L HEMATOCRIT (test code = HCT) 28.4 % 42.0-52.0 L MEAN CELL VOLUME (test code = MCV) 93.1 fL 80-98 N MEAN CELL HGB (test code = MCH) 27.2 picogram 27.0-33.0 N MEAN CELL HGB CONCETRATION (test code = MCHC) 29.2 gram/dL 33.0-36. 0 L RED CELL DISTRIBUTION WIDTH (test code = RDW) 14.0 % 11.6-16. 2 N RED CELL DISTRIBUTION WIDTH SD (test code = RDW-SD) 47.2 fL 37 .0-51.0 N PLATELET COUNT (test code = PLT) 332 K/mm3 150-450 N MEAN PLATELET VOLUME (test code = MPV) 9.6 fL 6.7-11.0 N NEUTROPHIL % (test code = NT%) 78.2 % 39.0-69.0 H IMMATURE GRANULOCYTE % (test code = IG%) 2.0 % 0.0-5.0 N LYMPHOCYTE % (test code = LY%) 9.7 % 25.0-55.0 L MONOCYTE % (test code = MO%) 7.8 % 0.0-10.0 N EOSINOPHIL % (test code = EO%) 1.5 % 0.0-5.0 N BASOPHIL % (test code = BA%) 0.8 % 0.0-1.0 N NUCLEATED RBC % (test code = NRBC%) 0.0 % 0-0 N NEUTROPHIL # (test code = NT#) 6.70 K/mm3 1.8-7.7 N IMMATURE GRANULOCYTE # (test code = IG#) 0.17 x10 3/uL 0-0.03 H LYMPHOCYTE # (test code = LY#) 0.83 K/mm3 1.0-5.0 L MONOCYTE # (test code = MO#) 0.67 K/mm3 0-0.8 N EOSINOPHIL # (test code = EO#) 0.13 K/mm3 0.0-0.5 N BASOPHIL # (test code = BA#) 0.07 K/mm3 0.0-0.2 N NUCLEATED RBC # (test code = NRBC#) 0.00 K/mm3 0.0-0.1 N MANUAL DIFF REQUIRED (test code = MDIFF) NO BASIC METABOLIC [id number] 06:41:00* Test Item Value Reference Range Interpretation Comments SODIUM (test code = NA) 138 mmol/L 136-145 N POTASSIUM (test code = K) 4.0 mmol/L 3.5-5.1 N CHLORIDE (test code = CL) 102.0 mmol/L 98-107 N CARBON DIOXIDE (test code = CO2) 29.0 mmol/L 21-32 N ANION GAP (test code = GAP) 11.0 10-20 N GLUCOSE (test code = GLU) 122 mg/dL 74-106 H BLOOD UREA NITROGEN (test code = BUN) 27 mg/dL 7-18 H RESULT VERIFIED BY REPEAT ANALYSIS GLOMERULAR FILTRATION RATE (test code = GFR) 11 mL/min >=60 Estimated GFR by using Modified MDRD formula.Chronic kidney disease is defined as either kidney damageor GFR <60 mL/min/1.73 m2 for >3 months. CREATININE (test code = CREAT) 5.20 mg/dL 0.7-1.3 H BUN/CREATININE RATIO (test code = BUN/CREA) 5.2 10-20 L CALCIUM (test code = CA) 8.3 mg/dL 8.5-10.1 L BASIC METABOLIC [id number] 06:26:00* Test Item Value Reference Range Interpretation Comments SODIUM (test code = NA) 138 mmol/L 136-145 N POTASSIUM (test code = K) 4.0 mmol/L 3.5-5.1 N CHLORIDE (test code = CL) 102.0 mmol/L 98-107 N CARBON DIOXIDE (test code = CO2) mmol/L 21-32 ANION GAP (test code = GAP) 10-20 GLUCOSE (test code = GLU) mg/dL 74-106 BLOOD UREA NITROGEN (test code = BUN) mg/dL 7-18 GLOMERULAR FILTRATION RATE (test code = GFR) mL/min >=60 CREATININE (test code = CREAT) mg/dL 0.7-1.3 BUN/CREATININE RATIO (test code = BUN/CREA) 10-20 CALCIUM (test code = CA) mg/dL 8.5-10.1 CBC W/AUTO [id number] 06:15:00* Test Item Value Reference Range Interpretation Comments WHITE BLOOD CELL (test code = WBC) 8.4 K/mm3 4.5-12.5 N RED BLOOD CELL (test code = RBC) 2.47 mill/mm3 4.0-5.8 L HEMOGLOBIN (test code = HGB) 6.8 gram/dL 13.0-17.5 L HEMATOCRIT (test code = HCT) 22.3 % 42.0-52.0 L MEAN CELL VOLUME (test code = MCV) 90.3 fL 80-98 N MEAN CELL HGB (test code = MCH) 27.5 picogram 27.0-33.0 N MEAN CELL HGB CONCETRATION (test code = MCHC) 30.5 gram/dL 33.0-36. 0 L RED CELL DISTRIBUTION WIDTH (test code = RDW) 14.0 % 11.6-16. 2 N RED CELL DISTRIBUTION WIDTH SD (test code = RDW-SD) 45.9 fL 37 .0-51.0 N PLATELET COUNT (test code = PLT) 303 K/mm3 150-450 N MEAN PLATELET VOLUME (test code = MPV) 9.2 fL 6.7-11.0 N NEUTROPHIL % (test code = NT%) 79.3 % 39.0-69.0 H IMMATURE GRANULOCYTE % (test code = IG%) 2.0 % 0.0-5.0 N LYMPHOCYTE % (test code = LY%) 8.9 % 25.0-55.0 L MONOCYTE % (test code = MO%) 7.7 % 0.0-10.0 N EOSINOPHIL % (test code = EO%) 1.5 % 0.0-5.0 N BASOPHIL % (test code = BA%) 0.6 % 0.0-1.0 N NUCLEATED RBC % (test code = NRBC%) 0.0 % 0-0 N NEUTROPHIL # (test code = NT#) 6.64 K/mm3 1.8-7.7 N IMMATURE GRANULOCYTE # (test code = IG#) 0.17 x10 3/uL 0-0.03 H LYMPHOCYTE # (test code = LY#) 0.75 K/mm3 1.0-5.0 L MONOCYTE # (test code = MO#) 0.65 K/mm3 0-0.8 N EOSINOPHIL # (test code = EO#) 0.13 K/mm3 0.0-0.5 N BASOPHIL # (test code = BA#) 0.05 K/mm3 0.0-0.2 N NUCLEATED RBC # (test code = NRBC#) 0.00 K/mm3 0.0-0.1 N MANUAL DIFF REQUIRED (test code = MDIFF) NO [id number] 04:58:00* Test Item Value Reference Range Interpretation Comments GLUBED (test code = GLUBED) 114 mg/dL 74-106 H Performed by certified photogravure press operator at [facility] [id number] 20:46:00* Test Item Value Reference Range Interpretation Comments GLUBED (test code = GLUBED) 194 mg/dL 74-106 H Performed by certified photogravure press operator at [facility] [id number] 18:42:00* Test Item Value Reference Range Interpretation Comments GLUBED (test code = GLUBED) 227 mg/dL 74-106 H Performed by certified photogravure press operator at [facility] [id number] 17:13:00* Test Item Value Reference Range Interpretation Comments GLUBED (test code = GLUBED) 142 mg/dL 74-106 H Performed by certified photogravure press operator at [facility] [id number] 12:56:00* Test Item Value Reference Range Interpretation Comments GLUBED (test code = GLUBED) 194 mg/dL 74-106 H Performed by certified photogravure press operator at [facility] BASIC METABOLIC [id number] 07:09:00* Test Item Value Reference Range Interpretation Comments SODIUM (test code = NA) 140 mmol/L 136-145 N POTASSIUM (test code = K) 4.0 mmol/L 3.5-5.1 N CHLORIDE (test code = CL) 102.0 mmol/L 98-107 N CARBON DIOXIDE (test code = CO2) 30.0 mmol/L 21-32 N ANION GAP (test code = GAP) 12.0 10-20 N GLUCOSE (test code = GLU) 151 mg/dL 74-106 H BLOOD UREA NITROGEN (test code = BUN) 20 mg/dL 7-18 H GLOMERULAR FILTRATION RATE (test code = GFR) 16 mL/min >=60 Estimated GFR by using Modified MDRD formula.Chronic kidney disease is defined as either kidney damageor GFR <60 mL/min/1.73 m2 for >3 months. CREATININE (test code = CREAT) 3.80 mg/dL 0.7-1.3 H BUN/CREATININE RATIO (test code = BUN/CREA) 5.3 10-20 L CALCIUM (test code = CA) 8.1 mg/dL 8.5-10.1 L BASIC METABOLIC [id number] 06:55:00* Test Item Value Reference Range Interpretation Comments SODIUM (test code = NA) 140 mmol/L 136-145 N POTASSIUM (test code = K) 4.0 mmol/L 3.5-5.1 N CHLORIDE (test code = CL) 102.0 mmol/L 98-107 N CARBON DIOXIDE (test code = CO2) mmol/L 21-32 ANION GAP (test code = GAP) 10-20 GLUCOSE (test code = GLU) mg/dL 74-106 BLOOD UREA NITROGEN (test code = BUN) mg/dL 7-18 GLOMERULAR FILTRATION RATE (test code = GFR) mL/min >=60 CREATININE (test code = CREAT) mg/dL 0.7-1.3 BUN/CREATININE RATIO (test code = BUN/CREA) 10-20 CALCIUM (test code = CA) mg/dL 8.5-10.1 CBC W/AUTO [id number] 06:53:00* Test Item Value Reference Range Interpretation Comments WHITE BLOOD CELL (test code = WBC) 9.5 K/mm3 4.5-12.5 N RED BLOOD CELL (test code = RBC) 2.54 mill/mm3 4.0-5.8 L HEMOGLOBIN (test code = HGB) 7.0 gram/dL 13.0-17.5 L HEMATOCRIT (test code = HCT) 23.3 % 42.0-52.0 L MEAN CELL VOLUME (test code = MCV) 91.7 fL 80-98 N MEAN CELL HGB (test code = MCH) 27.6 picogram 27.0-33.0 N MEAN CELL HGB CONCETRATION (test code = MCHC) 30.0 gram/dL 33.0-36. 0 L RED CELL DISTRIBUTION WIDTH (test code = RDW) 14.3 % 11.6-16. 2 N RED CELL DISTRIBUTION WIDTH SD (test code = RDW-SD) 47.0 fL 37 .0-51.0 N PLATELET COUNT (test code = PLT) 322 K/mm3 150-450 N MEAN PLATELET VOLUME (test code = MPV) 9.4 fL 6.7-11.0 N NEUTROPHIL % (test code = NT%) 78.8 % 39.0-69.0 H IMMATURE GRANULOCYTE % (test code = IG%) 1.8 % 0.0-5.0 N LYMPHOCYTE % (test code = LY%) 9.3 % 25.0-55.0 L MONOCYTE % (test code = MO%) 7.6 % 0.0-10.0 N EOSINOPHIL % (test code = EO%) 1.9 % 0.0-5.0 N BASOPHIL % (test code = BA%) 0.6 % 0.0-1.0 N NUCLEATED RBC % (test code = NRBC%) 0.0 % 0-0 N NEUTROPHIL # (test code = NT#) 7.50 K/mm3 1.8-7.7 N IMMATURE GRANULOCYTE # (test code = IG#) 0.17 x10 3/uL 0-0.03 H LYMPHOCYTE # (test code = LY#) 0.89 K/mm3 1.0-5.0 L MONOCYTE # (test code = MO#) 0.72 K/mm3 0-0.8 N EOSINOPHIL # (test code = EO#) 0.18 K/mm3 0.0-0.5 N BASOPHIL # (test code = BA#) 0.06 K/mm3 0.0-0.2 N NUCLEATED RBC # (test code = NRBC#) 0.00 K/mm3 0.0-0.1 N MANUAL DIFF REQUIRED (test code = MDIFF) NO [id number] 05:04:00* Test Item Value Reference Range Interpretation Comments GLUBED (test code = GLUBED) 150 mg/dL 74-106 H Performed by certified photogravure press operator at [facility] [id number] 22:19:00* Test Item Value Reference Range Interpretation Comments GLUBED (test code = GLUBED) 120 mg/dL 74-106 H Performed by certified photogravure press operator at [facility] [id number] 17:17:00* Test Item Value Reference Range Interpretation Comments GLUBED (test code = GLUBED) 268 mg/dL 74-106 H Performed by certified photogravure press operator at [facility] CBC W/AUTO [id number] 07:45:00* Test Item Value Reference Range Interpretation Comments WHITE BLOOD CELL (test code = WBC) 9.3 K/mm3 4.5-12.5 N RED BLOOD CELL (test code = RBC) 2.75 mill/mm3 4.0-5.8 L HEMOGLOBIN (test code = HGB) 7.4 gram/dL 13.0-17.5 L HEMATOCRIT (test code = HCT) 25.3 % 42.0-52.0 L MEAN CELL VOLUME (test code = MCV) 92.0 fL 80-98 N MEAN CELL HGB (test code = MCH) 26.9 picogram 27.0-33.0 L MEAN CELL HGB CONCETRATION (test code = MCHC) 29.2 gram/dL 33.0-36. 0 L RED CELL DISTRIBUTION WIDTH (test code = RDW) 14.1 % 11.6-16. 2 N RED CELL DISTRIBUTION WIDTH SD (test code = RDW-SD) 47.0 fL 37 .0-51.0 N PLATELET COUNT (test code = PLT) 342 K/mm3 150-450 N MEAN PLATELET VOLUME (test code = MPV) 9.3 fL 6.7-11.0 N NEUTROPHIL % (test code = NT%) 79.3 % 39.0-69.0 H IMMATURE GRANULOCYTE % (test code = IG%) 1.8 % 0.0-5.0 N LYMPHOCYTE % (test code = LY%) 9.6 % 25.0-55.0 L MONOCYTE % (test code = MO%) 7.2 % 0.0-10.0 N EOSINOPHIL % (test code = EO%) 1.7 % 0.0-5.0 N BASOPHIL % (test code = BA%) 0.4 % 0.0-1.0 N NUCLEATED RBC % (test code = NRBC%) 0.0 % 0-0 N NEUTROPHIL # (test code = NT#) 7.33 K/mm3 1.8-7.7 N IMMATURE GRANULOCYTE # (test code = IG#) 0.17 x10 3/uL 0-0.03 H LYMPHOCYTE # (test code = LY#) 0.89 K/mm3 1.0-5.0 L MONOCYTE # (test code = MO#) 0.67 K/mm3 0-0.8 N EOSINOPHIL # (test code = EO#) 0.16 K/mm3 0.0-0.5 N BASOPHIL # (test code = BA#) 0.04 K/mm3 0.0-0.2 N NUCLEATED RBC # (test code = NRBC#) 0.00 K/mm3 0.0-0.1 N MANUAL DIFF REQUIRED (test code = MDIFF) NO, ONLY SCAN NEEDED DIFFERENTIAL [id number] 07:45:00* Test Item Value Reference Range Interpretation Comments STAIN ACCEPTABILITY (test code = STN ACCEPTABLE) STAIN ACCEPTABLE HYPOCHROMIA (test code = HYPO) 1+ ANISOCYTOSIS (test code = ANISO) 1+ PLATELET ESTIMATE (test code = PLTEST) ADEQUATE PLATELET MORPHOLOGY (test code = PLTMORPH) SIZE VARIABLE BASIC METABOLIC [id number] 06:19:00* Test Item Value Reference Range Interpretation Comments SODIUM (test code = NA) 138 mmol/L 136-145 N POTASSIUM (test code = K) 3.9 mmol/L 3.5-5.1 N CHLORIDE (test code = CL) 104.0 mmol/L 98-107 N CARBON DIOXIDE (test code = CO2) 29.0 mmol/L 21-32 N ANION GAP (test code = GAP) 8.9 10-20 L GLUCOSE (test code = GLU) 128 mg/dL 74-106 H BLOOD UREA NITROGEN (test code = BUN) 31 mg/dL 7-18 H RESULT VERIFIED BY REPEAT ANALYSIS GLOMERULAR FILTRATION RATE (test code = GFR) 11 mL/min >=60 Estimated GFR by using Modified MDRD formula.Chronic kidney disease is defined as either kidney damageor GFR <60 mL/min/1.73 m2 for >3 months. CREATININE (test code = CREAT) 5.30 mg/dL 0.7-1.3 H BUN/CREATININE RATIO (test code = BUN/CREA) 5.8 10-20 L CALCIUM (test code = CA) 8.0 mg/dL 8.5-10.1 L BASIC METABOLIC [id number] 05:44:00* Test Item Value Reference Range Interpretation Comments SODIUM (test code = NA) 138 mmol/L 136-145 N POTASSIUM (test code = K) 3.9 mmol/L 3.5-5.1 N CHLORIDE (test code = CL) 104.0 mmol/L 98-107 N CARBON DIOXIDE (test code = CO2) mmol/L 21-32 ANION GAP (test code = GAP) 10-20 GLUCOSE (test code = GLU) mg/dL 74-106 BLOOD UREA NITROGEN (test code = BUN) mg/dL 7-18 GLOMERULAR FILTRATION RATE (test code = GFR) mL/min >=60 CREATININE (test code = CREAT) mg/dL 0.7-1.3 BUN/CREATININE RATIO (test code = BUN/CREA) 10-20 CALCIUM (test code = CA) mg/dL 8.5-10.1 CBC W/AUTO [id number] 05:27:00* Test Item Value Reference Range Interpretation Comments WHITE BLOOD CELL (test code = WBC) 9.3 K/mm3 4.5-12.5 N RED BLOOD CELL (test code = RBC) 2.75 mill/mm3 4.0-5.8 L HEMOGLOBIN (test code = HGB) 7.4 gram/dL 13.0-17.5 L HEMATOCRIT (test code = HCT) 25.3 % 42.0-52.0 L MEAN CELL VOLUME (test code = MCV) 92.0 fL 80-98 N MEAN CELL HGB (test code = MCH) 26.9 picogram 27.0-33.0 L MEAN CELL HGB CONCETRATION (test code = MCHC) 29.2 gram/dL 33.0-36. 0 L RED CELL DISTRIBUTION WIDTH (test code = RDW) 14.1 % 11.6-16. 2 N RED CELL DISTRIBUTION WIDTH SD (test code = RDW-SD) 47.0 fL 37 .0-51.0 N PLATELET COUNT (test code = PLT) 342 K/mm3 150-450 N MEAN PLATELET VOLUME (test code = MPV) 9.3 fL 6.7-11.0 N NEUTROPHIL % (test code = NT%) 79.3 % 39.0-69.0 H IMMATURE GRANULOCYTE % (test code = IG%) 1.8 % 0.0-5.0 N LYMPHOCYTE % (test code = LY%) 9.6 % 25.0-55.0 L MONOCYTE % (test code = MO%) 7.2 % 0.0-10.0 N EOSINOPHIL % (test code = EO%) 1.7 % 0.0-5.0 N BASOPHIL % (test code = BA%) 0.4 % 0.0-1.0 N NUCLEATED RBC % (test code = NRBC%) 0.0 % 0-0 N NEUTROPHIL # (test code = NT#) 7.33 K/mm3 1.8-7.7 N IMMATURE GRANULOCYTE # (test code = IG#) 0.17 x10 3/uL 0-0.03 H LYMPHOCYTE # (test code = LY#) 0.89 K/mm3 1.0-5.0 L MONOCYTE # (test code = MO#) 0.67 K/mm3 0-0.8 N EOSINOPHIL # (test code = EO#) 0.16 K/mm3 0.0-0.5 N BASOPHIL # (test code = BA#) 0.04 K/mm3 0.0-0.2 N NUCLEATED RBC # (test code = NRBC#) 0.00 K/mm3 0.0-0.1 N MANUAL DIFF REQUIRED (test code = MDIFF) NO, ONLY SCAN NEEDED DIFFERENTIAL [id number] 05:27:00* Test Item Value Reference Range Interpretation Comments STAIN ACCEPTABILITY (test code = STN ACCEPTABLE) CABOT RINGS (test code = CAB) MORPHOLOGY COMMENT (test code = MOC) PLATELET ESTIMATE (test code = PLTEST) PLATELET MORPHOLOGY (test code = PLTMORPH) CBC W/AUTO [id number] 05:27:00* Test Item Value Reference Range Interpretation Comments WHITE BLOOD CELL (test code = WBC) 9.3 K/mm3 4.5-12.5 N RED BLOOD CELL (test code = RBC) 2.75 mill/mm3 4.0-5.8 L HEMOGLOBIN (test code = HGB) 7.4 gram/dL 13.0-17.5 L HEMATOCRIT (test code = HCT) 25.3 % 42.0-52.0 L MEAN CELL VOLUME (test code = MCV) 92.0 fL 80-98 N MEAN CELL HGB (test code = MCH) 26.9 picogram 27.0-33.0 L MEAN CELL HGB CONCETRATION (test code = MCHC) 29.2 gram/dL 33.0-36. 0 L RED CELL DISTRIBUTION WIDTH (test code = RDW) 14.1 % 11.6-16. 2 N RED CELL DISTRIBUTION WIDTH SD (test code = RDW-SD) 47.0 fL 37 .0-51.0 N PLATELET COUNT (test code = PLT) 342 K/mm3 150-450 N MEAN PLATELET VOLUME (test code = MPV) 9.3 fL 6.7-11.0 N NEUTROPHIL % (test code = NT%) 79.3 % 39.0-69.0 H IMMATURE GRANULOCYTE % (test code = IG%) 1.8 % 0.0-5.0 N LYMPHOCYTE % (test code = LY%) 9.6 % 25.0-55.0 L MONOCYTE % (test code = MO%) 7.2 % 0.0-10.0 N EOSINOPHIL % (test code = EO%) 1.7 % 0.0-5.0 N BASOPHIL % (test code = BA%) 0.4 % 0.0-1.0 N NUCLEATED RBC % (test code = NRBC%) 0.0 % 0-0 N NEUTROPHIL # (test code = NT#) 7.33 K/mm3 1.8-7.7 N IMMATURE GRANULOCYTE # (test code = IG#) 0.17 x10 3/uL 0-0.03 H LYMPHOCYTE # (test code = LY#) 0.89 K/mm3 1.0-5.0 L MONOCYTE # (test code = MO#) 0.67 K/mm3 0-0.8 N EOSINOPHIL # (test code = EO#) 0.16 K/mm3 0.0-0.5 N BASOPHIL # (test code = BA#) 0.04 K/mm3 0.0-0.2 N NUCLEATED RBC # (test code = NRBC#) 0.00 K/mm3 0.0-0.1 N MANUAL DIFF REQUIRED (test code = MDIFF) NO, ONLY SCAN NEEDED DIFFERENTIAL [id number] 05:27:00* Test Item Value Reference Range Interpretation Comments STAIN ACCEPTABILITY (test code = STN ACCEPTABLE) CABOT RINGS (test code = CAB) MORPHOLOGY COMMENT (test code = MOC) PLATELET ESTIMATE (test code = PLTEST) PLATELET MORPHOLOGY (test code = PLTMORPH) CBC W/AUTO [id number] 05:27:00* Test Item Value Reference Range Interpretation Comments WHITE BLOOD CELL (test code = WBC) 9.3 K/mm3 4.5-12.5 N RED BLOOD CELL (test code = RBC) 2.75 mill/mm3 4.0-5.8 L HEMOGLOBIN (test code = HGB) 7.4 gram/dL 13.0-17.5 L HEMATOCRIT (test code = HCT) 25.3 % 42.0-52.0 L MEAN CELL VOLUME (test code = MCV) 92.0 fL 80-98 N MEAN CELL HGB (test code = MCH) 26.9 picogram 27.0-33.0 L MEAN CELL HGB CONCETRATION (test code = MCHC) 29.2 gram/dL 33.0-36. 0 L RED CELL DISTRIBUTION WIDTH (test code = RDW) 14.1 % 11.6-16. 2 N RED CELL DISTRIBUTION WIDTH SD (test code = RDW-SD) 47.0 fL 37 .0-51.0 N PLATELET COUNT (test code = PLT) 342 K/mm3 150-450 N MEAN PLATELET VOLUME (test code = MPV) 9.3 fL 6.7-11.0 N NEUTROPHIL % (test code = NT%) 79.3 % 39.0-69.0 H IMMATURE GRANULOCYTE % (test code = IG%) 1.8 % 0.0-5.0 N LYMPHOCYTE % (test code = LY%) 9.6 % 25.0-55.0 L MONOCYTE % (test code = MO%) 7.2 % 0.0-10.0 N EOSINOPHIL % (test code = EO%) 1.7 % 0.0-5.0 N BASOPHIL % (test code = BA%) 0.4 % 0.0-1.0 N NUCLEATED RBC % (test code = NRBC%) 0.0 % 0-0 N NEUTROPHIL # (test code = NT#) 7.33 K/mm3 1.8-7.7 N IMMATURE GRANULOCYTE # (test code = IG#) 0.17 x10 3/uL 0-0.03 H LYMPHOCYTE # (test code = LY#) 0.89 K/mm3 1.0-5.0 L MONOCYTE # (test code = MO#) 0.67 K/mm3 0-0.8 N EOSINOPHIL # (test code = EO#) 0.16 K/mm3 0.0-0.5 N BASOPHIL # (test code = BA#) 0.04 K/mm3 0.0-0.2 N NUCLEATED RBC # (test code = NRBC#) 0.00 K/mm3 0.0-0.1 N MANUAL DIFF REQUIRED (test code = MDIFF) NO, ONLY SCAN NEEDED DIFFERENTIAL [id number] 05:27:00* Test Item Value Reference Range Interpretation Comments STAIN ACCEPTABILITY (test code = STN ACCEPTABLE) MORPHOLOGY COMMENT (test code = MOC) PLATELET ESTIMATE (test code = PLTEST) PLATELET MORPHOLOGY (test code = PLTMORPH) CBC W/AUTO [id number] 05:27:00* Test Item Value Reference Range Interpretation Comments WHITE BLOOD CELL (test code = WBC) 9.3 K/mm3 4.5-12.5 N RED BLOOD CELL (test code = RBC) 2.75 mill/mm3 4.0-5.8 L HEMOGLOBIN (test code = HGB) 7.4 gram/dL 13.0-17.5 L HEMATOCRIT (test code = HCT) 25.3 % 42.0-52.0 L MEAN CELL VOLUME (test code = MCV) 92.0 fL 80-98 N MEAN CELL HGB (test code = MCH) 26.9 picogram 27.0-33.0 L MEAN CELL HGB CONCETRATION (test code = MCHC) 29.2 gram/dL 33.0-36. 0 L RED CELL DISTRIBUTION WIDTH (test code = RDW) 14.1 % 11.6-16. 2 N RED CELL DISTRIBUTION WIDTH SD (test code = RDW-SD) 47.0 fL 37 .0-51.0 N PLATELET COUNT (test code = PLT) 342 K/mm3 150-450 N MEAN PLATELET VOLUME (test code = MPV) 9.3 fL 6.7-11.0 N NEUTROPHIL % (test code = NT%) 79.3 % 39.0-69.0 H IMMATURE GRANULOCYTE % (test code = IG%) 1.8 % 0.0-5.0 N LYMPHOCYTE % (test code = LY%) 9.6 % 25.0-55.0 L MONOCYTE % (test code = MO%) 7.2 % 0.0-10.0 N EOSINOPHIL % (test code = EO%) 1.7 % 0.0-5.0 N BASOPHIL % (test code = BA%) 0.4 % 0.0-1.0 N NUCLEATED RBC % (test code = NRBC%) 0.0 % 0-0 N NEUTROPHIL # (test code = NT#) 7.33 K/mm3 1.8-7.7 N IMMATURE GRANULOCYTE # (test code = IG#) 0.17 x10 3/uL 0-0.03 H LYMPHOCYTE # (test code = LY#) 0.89 K/mm3 1.0-5.0 L MONOCYTE # (test code = MO#) 0.67 K/mm3 0-0.8 N EOSINOPHIL # (test code = EO#) 0.16 K/mm3 0.0-0.5 N BASOPHIL # (test code = BA#) 0.04 K/mm3 0.0-0.2 N NUCLEATED RBC # (test code = NRBC#) 0.00 K/mm3 0.0-0.1 N MANUAL DIFF REQUIRED (test code = MDIFF) NO, ONLY SCAN NEEDED DIFFERENTIAL [id number] 05:27:00* Test Item Value Reference Range Interpretation Comments STAIN ACCEPTABILITY (test code = STN ACCEPTABLE) CABOT RINGS (test code = CAB) MORPHOLOGY COMMENT (test code = MOC) PLATELET ESTIMATE (test code = PLTEST) PLATELET MORPHOLOGY (test code = PLTMORPH) BASIC METABOLIC [id number] 10:38:00* Test Item Value Reference Range Interpretation Comments SODIUM (test code = NA) 141 mmol/L 136-145 N POTASSIUM (test code = K) 3.9 mmol/L 3.5-5.1 N CHLORIDE (test code = CL) 106.0 mmol/L 98-107 N CARBON DIOXIDE (test code = CO2) 27.0 mmol/L 21-32 N ANION GAP (test code = GAP) 11.9 10-20 N GLUCOSE (test code = GLU) 140 mg/dL 74-106 H BLOOD UREA NITROGEN (test code = BUN) 21 mg/dL 7-18 H GLOMERULAR FILTRATION RATE (test code = GFR) 15 mL/min >=60 Estimated GFR by using Modified MDRD formula.Chronic kidney disease is defined as either kidney damageor GFR <60 mL/min/1.73 m2 for >3 months. CREATININE (test code = CREAT) 3.90 mg/dL 0.7-1.3 H BUN/CREATININE RATIO (test code = BUN/CREA) 5.4 10-20 L CALCIUM (test code = CA) 8.3 mg/dL 8.5-10.1 L CPK-MB [id number] 05:35:00* Test Item Value Reference Range Interpretation Comments CREATINE KINASE (CK) (test code = CK) 21 IUnit/L 26-208 L CKMB (test code = CKMBT) < 1.0 ng/mL 0-6.0 N RELATIVE % INDEX (test code = REL%) 4.76 % 0.00-2.50 H "If the total CK is elevated, the CKMB Fraction must beinterpreted as a Relative % Index, Normal is less than 2.5%"NOTE: Relative % Index is not valid with a normal total CK. - XR CHEST 1 [id number] 14:30:00 FAX: Silvia Payan MD [phone] [place]: [facility]: [facility] FAX: Alexia Hillman MD [phone] Name: LUCIANXOCHILT KAURARIEL [facility] : 1940 Age/S: 77/M [address] [facility] Unit #: [id number] Loc: V.[address] [place] [address] Phys: Alexia Clinton MD Acct: [id number] Dis Date: Status: ADM IN PHONE #: [phone] Exam Date: 07/22/2018 1319 FAX #: [phone] Reason: pleural effusion EXAMS: CPT CODE: [id number] XR CHEST 1 V [id number] HISTORY: Pleural effusion. COMPARISON: July 17, 2018. Bilateral lines are unchanged. Small bilateral pleural effusions are unchanged. Dependent changes congestion is improved. Cardiomegaly. IMPRESSION: Improved congestion with small bibasal effusions and subsegmental atelectasis. at 1430 Reported and signed by: Atif David M.D. CC: Silvia Contreras MD; Alexia Clinton MD Technologist: Jamila saravia RT(R) Trnscrd Date/Time/By: 07/22/2018 ( 1941) : By: [email or web address] Orig Print D/T: S: 07/22/2018 (3691) PAGE 1 Signed Report CBC W/AUTO [id number] 08:02:00* Test Item Value Reference Range Interpretation Comments WHITE BLOOD CELL (test code = WBC) 7.4 K/mm3 4.5-12.5 N RED BLOOD CELL (test code = RBC) 2.87 mill/mm3 4.0-5.8 L HEMOGLOBIN (test code = HGB) 7.7 gram/dL 13.0-17.5 L HEMATOCRIT (test code = HCT) 26.6 % 42.0-52.0 L MEAN CELL VOLUME (test code = MCV) 92.7 fL 80-98 N MEAN CELL HGB (test code = MCH) 26.8 picogram 27.0-33.0 L MEAN CELL HGB CONCETRATION (test code = MCHC) 28.9 gram/dL 33.0-36. 0 L RED CELL DISTRIBUTION WIDTH (test code = RDW) 14.3 % 11.6-16. 2 N RED CELL DISTRIBUTION WIDTH SD (test code = RDW-SD) 47.3 fL 37 .0-51.0 N PLATELET COUNT (test code = PLT) 384 K/mm3 150-450 N MEAN PLATELET VOLUME (test code = MPV) 9.2 fL 6.7-11.0 N NEUTROPHIL % (test code = NT%) 70.3 % 39.0-69.0 H IMMATURE GRANULOCYTE % (test code = IG%) 3.3 % 0.0-5.0 N LYMPHOCYTE % (test code = LY%) 14.8 % 25.0-55.0 L MONOCYTE % (test code = MO%) 7.9 % 0.0-10.0 N EOSINOPHIL % (test code = EO%) 2.9 % 0.0-5.0 N BASOPHIL % (test code = BA%) 0.8 % 0.0-1.0 N NUCLEATED RBC % (test code = NRBC%) 0.0 % 0-0 N NEUTROPHIL # (test code = NT#) 5.18 K/mm3 1.8-7.7 N IMMATURE GRANULOCYTE # (test code = IG#) 0.24 x10 3/uL 0-0.03 H LYMPHOCYTE # (test code = LY#) 1.09 K/mm3 1.0-5.0 N MONOCYTE # (test code = MO#) 0.58 K/mm3 0-0.8 N EOSINOPHIL # (test code = EO#) 0.21 K/mm3 0.0-0.5 N BASOPHIL # (test code = BA#) 0.06 K/mm3 0.0-0.2 N NUCLEATED RBC # (test code = NRBC#) 0.00 K/mm3 0.0-0.1 N MANUAL DIFF REQUIRED (test code = MDIFF) NO, ONLY SCAN NEEDED DIFFERENTIAL [id number] 08:02:00* Test Item Value Reference Range Interpretation Comments STAIN ACCEPTABILITY (test code = STN ACCEPTABLE) STAIN ACCEPTABLE POLYCHROMASIA (test code = POLC) 1+ POIKILOCYTOSIS (test code = POIK) 1+ CRENATED CELLS (test code = CREN) 1+ ACANTHOCYTES (test code = ACAN) 1+ NONE PLATELET ESTIMATE (test code = PLTEST) DECREASED PLATELET MORPHOLOGY (test code = PLTMORPH) APPEAR LARGE BASIC METABOLIC [id number] 07:16:00* Test Item Value Reference Range Interpretation Comments SODIUM (test code = NA) 140 mmol/L 136-145 N POTASSIUM (test code = K) 3.9 mmol/L 3.5-5.1 N CHLORIDE (test code = CL) 104.0 mmol/L 98-107 N CARBON DIOXIDE (test code = CO2) 28.0 mmol/L 21-32 N ANION GAP (test code = GAP) 11.9 10-20 N GLUCOSE (test code = GLU) 159 mg/dL 74-106 H BLOOD UREA NITROGEN (test code = BUN) 45 mg/dL 7-18 H GLOMERULAR FILTRATION RATE (test code = GFR) 9 mL/min >=60 Estimated GFR by using Modified MDRD formula.Chronic kidney disease is defined as either kidney damageor GFR <60 mL/min/1.73 m2 for >3 months. CREATININE (test code = CREAT) 6.00 mg/dL 0.7-1.3 H BUN/CREATININE RATIO (test code = BUN/CREA) 7.5 10-20 L CALCIUM (test code = CA) 8.1 mg/dL 8.5-10.1 L BASIC METABOLIC [id number] 07:13:00* Test Item Value Reference Range Interpretation Comments SODIUM (test code = NA) 140 mmol/L 136-145 N POTASSIUM (test code = K) 3.9 mmol/L 3.5-5.1 N CHLORIDE (test code = CL) 104.0 mmol/L 98-107 N CARBON DIOXIDE (test code = CO2) mmol/L 21-32 ANION GAP (test code = GAP) 10-20 GLUCOSE (test code = GLU) mg/dL 74-106 BLOOD UREA NITROGEN (test code = BUN) mg/dL 7-18 GLOMERULAR FILTRATION RATE (test code = GFR) mL/min >=60 CREATININE (test code = CREAT) mg/dL 0.7-1.3 BUN/CREATININE RATIO (test code = BUN/CREA) 10-20 CALCIUM (test code = CA) mg/dL 8.5-10.1 CBC W/AUTO [id number] 06:54:00* Test Item Value Reference Range Interpretation Comments WHITE BLOOD CELL (test code = WBC) 7.4 K/mm3 4.5-12.5 N RED BLOOD CELL (test code = RBC) 2.87 mill/mm3 4.0-5.8 L HEMOGLOBIN (test code = HGB) 7.7 gram/dL 13.0-17.5 L HEMATOCRIT (test code = HCT) 26.6 % 42.0-52.0 L MEAN CELL VOLUME (test code = MCV) 92.7 fL 80-98 N MEAN CELL HGB (test code = MCH) 26.8 picogram 27.0-33.0 L MEAN CELL HGB CONCETRATION (test code = MCHC) 28.9 gram/dL 33.0-36. 0 L RED CELL DISTRIBUTION WIDTH (test code = RDW) 14.3 % 11.6-16. 2 N RED CELL DISTRIBUTION WIDTH SD (test code = RDW-SD) 47.3 fL 37 .0-51.0 N PLATELET COUNT (test code = PLT) 384 K/mm3 150-450 N MEAN PLATELET VOLUME (test code = MPV) 9.2 fL 6.7-11.0 N NEUTROPHIL % (test code = NT%) 70.3 % 39.0-69.0 H IMMATURE GRANULOCYTE % (test code = IG%) 3.3 % 0.0-5.0 N LYMPHOCYTE % (test code = LY%) 14.8 % 25.0-55.0 L MONOCYTE % (test code = MO%) 7.9 % 0.0-10.0 N EOSINOPHIL % (test code = EO%) 2.9 % 0.0-5.0 N BASOPHIL % (test code = BA%) 0.8 % 0.0-1.0 N NUCLEATED RBC % (test code = NRBC%) 0.0 % 0-0 N NEUTROPHIL # (test code = NT#) 5.18 K/mm3 1.8-7.7 N IMMATURE GRANULOCYTE # (test code = IG#) 0.24 x10 3/uL 0-0.03 H LYMPHOCYTE # (test code = LY#) 1.09 K/mm3 1.0-5.0 N MONOCYTE # (test code = MO#) 0.58 K/mm3 0-0.8 N EOSINOPHIL # (test code = EO#) 0.21 K/mm3 0.0-0.5 N BASOPHIL # (test code = BA#) 0.06 K/mm3 0.0-0.2 N NUCLEATED RBC # (test code = NRBC#) 0.00 K/mm3 0.0-0.1 N MANUAL DIFF REQUIRED (test code = MDIFF) NO, ONLY SCAN NEEDED DIFFERENTIAL [id number] 06:54:00* Test Item Value Reference Range Interpretation Comments STAIN ACCEPTABILITY (test code = STN ACCEPTABLE) CABOT RINGS (test code = CAB) MORPHOLOGY COMMENT (test code = MOC) PLATELET ESTIMATE (test code = PLTEST) PLATELET MORPHOLOGY (test code = PLTMORPH) CBC W/AUTO [id number] 06:54:00* Test Item Value Reference Range Interpretation Comments WHITE BLOOD CELL (test code = WBC) 7.4 K/mm3 4.5-12.5 N RED BLOOD CELL (test code = RBC) 2.87 mill/mm3 4.0-5.8 L HEMOGLOBIN (test code = HGB) 7.7 gram/dL 13.0-17.5 L HEMATOCRIT (test code = HCT) 26.6 % 42.0-52.0 L MEAN CELL VOLUME (test code = MCV) 92.7 fL 80-98 N MEAN CELL HGB (test code = MCH) 26.8 picogram 27.0-33.0 L MEAN CELL HGB CONCETRATION (test code = MCHC) 28.9 gram/dL 33.0-36. 0 L RED CELL DISTRIBUTION WIDTH (test code = RDW) 14.3 % 11.6-16. 2 N RED CELL DISTRIBUTION WIDTH SD (test code = RDW-SD) 47.3 fL 37 .0-51.0 N PLATELET COUNT (test code = PLT) 384 K/mm3 150-450 N MEAN PLATELET VOLUME (test code = MPV) 9.2 fL 6.7-11.0 N NEUTROPHIL % (test code = NT%) 70.3 % 39.0-69.0 H IMMATURE GRANULOCYTE % (test code = IG%) 3.3 % 0.0-5.0 N LYMPHOCYTE % (test code = LY%) 14.8 % 25.0-55.0 L MONOCYTE % (test code = MO%) 7.9 % 0.0-10.0 N EOSINOPHIL % (test code = EO%) 2.9 % 0.0-5.0 N BASOPHIL % (test code = BA%) 0.8 % 0.0-1.0 N NUCLEATED RBC % (test code = NRBC%) 0.0 % 0-0 N NEUTROPHIL # (test code = NT#) 5.18 K/mm3 1.8-7.7 N IMMATURE GRANULOCYTE # (test code = IG#) 0.24 x10 3/uL 0-0.03 H LYMPHOCYTE # (test code = LY#) 1.09 K/mm3 1.0-5.0 N MONOCYTE # (test code = MO#) 0.58 K/mm3 0-0.8 N EOSINOPHIL # (test code = EO#) 0.21 K/mm3 0.0-0.5 N BASOPHIL # (test code = BA#) 0.06 K/mm3 0.0-0.2 N NUCLEATED RBC # (test code = NRBC#) 0.00 K/mm3 0.0-0.1 N MANUAL DIFF REQUIRED (test code = MDIFF) NO, ONLY SCAN NEEDED DIFFERENTIAL [id number] 06:54:00* Test Item Value Reference Range Interpretation Comments STAIN ACCEPTABILITY (test code = STN ACCEPTABLE) CABOT RINGS (test code = CAB) MORPHOLOGY COMMENT (test code = MOC) PLATELET ESTIMATE (test code = PLTEST) PLATELET MORPHOLOGY (test code = PLTMORPH) CBC W/AUTO [id number] 06:54:00* Test Item Value Reference Range Interpretation Comments WHITE BLOOD CELL (test code = WBC) 7.4 K/mm3 4.5-12.5 N RED BLOOD CELL (test code = RBC) 2.87 mill/mm3 4.0-5.8 L HEMOGLOBIN (test code = HGB) 7.7 gram/dL 13.0-17.5 L HEMATOCRIT (test code = HCT) 26.6 % 42.0-52.0 L MEAN CELL VOLUME (test code = MCV) 92.7 fL 80-98 N MEAN CELL HGB (test code = MCH) 26.8 picogram 27.0-33.0 L MEAN CELL HGB CONCETRATION (test code = MCHC) 28.9 gram/dL 33.0-36. 0 L RED CELL DISTRIBUTION WIDTH (test code = RDW) 14.3 % 11.6-16. 2 N RED CELL DISTRIBUTION WIDTH SD (test code = RDW-SD) 47.3 fL 37 .0-51.0 N PLATELET COUNT (test code = PLT) 384 K/mm3 150-450 N MEAN PLATELET VOLUME (test code = MPV) 9.2 fL 6.7-11.0 N NEUTROPHIL % (test code = NT%) 70.3 % 39.0-69.0 H IMMATURE GRANULOCYTE % (test code = IG%) 3.3 % 0.0-5.0 N LYMPHOCYTE % (test code = LY%) 14.8 % 25.0-55.0 L MONOCYTE % (test code = MO%) 7.9 % 0.0-10.0 N EOSINOPHIL % (test code = EO%) 2.9 % 0.0-5.0 N BASOPHIL % (test code = BA%) 0.8 % 0.0-1.0 N NUCLEATED RBC % (test code = NRBC%) 0.0 % 0-0 N NEUTROPHIL # (test code = NT#) 5.18 K/mm3 1.8-7.7 N IMMATURE GRANULOCYTE # (test code = IG#) 0.24 x10 3/uL 0-0.03 H LYMPHOCYTE # (test code = LY#) 1.09 K/mm3 1.0-5.0 N MONOCYTE # (test code = MO#) 0.58 K/mm3 0-0.8 N EOSINOPHIL # (test code = EO#) 0.21 K/mm3 0.0-0.5 N BASOPHIL # (test code = BA#) 0.06 K/mm3 0.0-0.2 N NUCLEATED RBC # (test code = NRBC#) 0.00 K/mm3 0.0-0.1 N MANUAL DIFF REQUIRED (test code = MDIFF) NO, ONLY SCAN NEEDED DIFFERENTIAL [id number] 06:54:00* Test Item Value Reference Range Interpretation Comments STAIN ACCEPTABILITY (test code = STN ACCEPTABLE) MORPHOLOGY COMMENT (test code = MOC) PLATELET ESTIMATE (test code = PLTEST) PLATELET MORPHOLOGY (test code = PLTMORPH) CBC W/AUTO [id number] 06:54:00* Test Item Value Reference Range Interpretation Comments WHITE BLOOD CELL (test code = WBC) 7.4 K/mm3 4.5-12.5 N RED BLOOD CELL (test code = RBC) 2.87 mill/mm3 4.0-5.8 L HEMOGLOBIN (test code = HGB) 7.7 gram/dL 13.0-17.5 L HEMATOCRIT (test code = HCT) 26.6 % 42.0-52.0 L MEAN CELL VOLUME (test code = MCV) 92.7 fL 80-98 N MEAN CELL HGB (test code = MCH) 26.8 picogram 27.0-33.0 L MEAN CELL HGB CONCETRATION (test code = MCHC) 28.9 gram/dL 33.0-36. 0 L RED CELL DISTRIBUTION WIDTH (test code = RDW) 14.3 % 11.6-16. 2 N RED CELL DISTRIBUTION WIDTH SD (test code = RDW-SD) 47.3 fL 37 .0-51.0 N PLATELET COUNT (test code = PLT) 384 K/mm3 150-450 N MEAN PLATELET VOLUME (test code = MPV) 9.2 fL 6.7-11.0 N NEUTROPHIL % (test code = NT%) 70.3 % 39.0-69.0 H IMMATURE GRANULOCYTE % (test code = IG%) 3.3 % 0.0-5.0 N LYMPHOCYTE % (test code = LY%) 14.8 % 25.0-55.0 L MONOCYTE % (test code = MO%) 7.9 % 0.0-10.0 N EOSINOPHIL % (test code = EO%) 2.9 % 0.0-5.0 N BASOPHIL % (test code = BA%) 0.8 % 0.0-1.0 N NUCLEATED RBC % (test code = NRBC%) 0.0 % 0-0 N NEUTROPHIL # (test code = NT#) 5.18 K/mm3 1.8-7.7 N IMMATURE GRANULOCYTE # (test code = IG#) 0.24 x10 3/uL 0-0.03 H LYMPHOCYTE # (test code = LY#) 1.09 K/mm3 1.0-5.0 N MONOCYTE # (test code = MO#) 0.58 K/mm3 0-0.8 N EOSINOPHIL # (test code = EO#) 0.21 K/mm3 0.0-0.5 N BASOPHIL # (test code = BA#) 0.06 K/mm3 0.0-0.2 N NUCLEATED RBC # (test code = NRBC#) 0.00 K/mm3 0.0-0.1 N MANUAL DIFF REQUIRED (test code = MDIFF) NO, ONLY SCAN NEEDED DIFFERENTIAL [id number] 06:54:00* Test Item Value Reference Range Interpretation Comments STAIN ACCEPTABILITY (test code = STN ACCEPTABLE) CABOT RINGS (test code = CAB) MORPHOLOGY COMMENT (test code = MOC) PLATELET ESTIMATE (test code = PLTEST) PLATELET MORPHOLOGY (test code = PLTMORPH) CBC W/MANUAL [id number] 16:35:00* Test Item Value Reference Range Interpretation Comments WHITE BLOOD CELL (test code = WBC) 9.4 K/mm3 4.5-12.5 N RED BLOOD CELL (test code = RBC) 3.06 mill/mm3 4.0-5.8 L HEMOGLOBIN (test code = HGB) 8.5 gram/dL 13.0-17.5 L HEMATOCRIT (test code = HCT) 28.3 % 42.0-52.0 L MEAN CELL VOLUME (test code = MCV) 92.5 fL 80-98 N MEAN CELL HGB (test code = MCH) 27.8 picogram 27.0-33.0 N MEAN CELL HGB CONCETRATION (test code = MCHC) 30.0 gram/dL 33.0-36. 0 L RED CELL DISTRIBUTION WIDTH (test code = RDW) 14.4 % 11.6-16. 2 N RED CELL DISTRIBUTION WIDTH SD (test code = RDW-SD) 47.8 fL 37 .0-51.0 N PLATELET COUNT (test code = PLT) 386 K/mm3 150-450 N MEAN PLATELET VOLUME (test code = MPV) 9.2 fL 6.7-11.0 N NEUTROPHIL % (test code = NT%) 79.5 % 39.0-69.0 H IMMATURE GRANULOCYTE % (test code = IG%) 2.2 % 0.0-5.0 N LYMPHOCYTE % (test code = LY%) 10.1 % 25.0-55.0 L MONOCYTE % (test code = MO%) 6.3 % 0.0-10.0 N EOSINOPHIL % (test code = EO%) 1.4 % 0.0-5.0 N BASOPHIL % (test code = BA%) 0.5 % 0.0-1.0 N NUCLEATED RBC % (test code = NRBC%) 0.0 % 0-0 N NEUTROPHIL # (test code = NT#) 7.47 K/mm3 1.8-7.7 N IMMATURE GRANULOCYTE # (test code = IG#) 0.21 x10 3/uL 0-0.03 H LYMPHOCYTE # (test code = LY#) 0.95 K/mm3 1.0-5.0 L MONOCYTE # (test code = MO#) 0.59 K/mm3 0-0.8 N EOSINOPHIL # (test code = EO#) 0.13 K/mm3 0.0-0.5 N BASOPHIL # (test code = BA#) 0.05 K/mm3 0.0-0.2 N NUCLEATED RBC # (test code = NRBC#) 0.00 K/mm3 0.0-0.1 N STAIN ACCEPTABILITY (test code = STN ACCEPTABLE) STAIN ACCEPTABLE TOTAL CELLS COUNTED (test code = TCC) 116 #CELLS SEGMENTED NEUTROPHILS (test code = SEG) 82.8 % 39-69 H BAND NEUTROPHIL (test code = BAND) 0 % 0-10 N LYMPHOCYTE (test code = LYMPH) 7.7 % 25-55 L REACTIVE LYMPH (test code = RELYMPH) 1.7 % MONOCYTE (test code = MON) 4.3 % 0-10 N EOSINOPHIL (test code = EOS) 2.6 % 0.0-5.0 N BASOPHIL (test code = BASO) 0.9 % 0-1.0 N METAMYELOCYTE (test code = META) 0 % 0-0 N MYELOCYTE (test code = MYELO) 0 % 0.0-0.0 N PROMYELOCYTE (test code = PROM) 0 % 0-0 N HYPOCHROMIA (test code = HYPO) 2+ POIKILOCYTOSIS (test code = POIK) 1+ ANISOCYTOSIS (test code = ANISO) 1+ MICROCYTOSIS (test code = MICR) 1+ CRENATED CELLS (test code = CREN) 1+ PLATELET ESTIMATE (test code = PLTEST) ADEQUATE PLATELET MORPHOLOGY (test code = PLTMORPH) SIZE VARIABLE IMMATURE FORMS (test code = IMMAT) 0 % CBC W/MANUAL [id number] 15:37:00* Test Item Value Reference Range Interpretation Comments WHITE BLOOD CELL (test code = WBC) 9.4 K/mm3 4.5-12.5 N RED BLOOD CELL (test code = RBC) 3.06 mill/mm3 4.0-5.8 L HEMOGLOBIN (test code = HGB) 8.5 gram/dL 13.0-17.5 L HEMATOCRIT (test code = HCT) 28.3 % 42.0-52.0 L MEAN CELL VOLUME (test code = MCV) 92.5 fL 80-98 N MEAN CELL HGB (test code = MCH) 27.8 picogram 27.0-33.0 N MEAN CELL HGB CONCETRATION (test code = MCHC) 30.0 gram/dL 33.0-36. 0 L RED CELL DISTRIBUTION WIDTH (test code = RDW) 14.4 % 11.6-16. 2 N RED CELL DISTRIBUTION WIDTH SD (test code = RDW-SD) 47.8 fL 37 .0-51.0 N PLATELET COUNT (test code = PLT) 386 K/mm3 150-450 N MEAN PLATELET VOLUME (test code = MPV) 9.2 fL 6.7-11.0 N NEUTROPHIL % (test code = NT%) 79.5 % 39.0-69.0 H IMMATURE GRANULOCYTE % (test code = IG%) 2.2 % 0.0-5.0 N LYMPHOCYTE % (test code = LY%) 10.1 % 25.0-55.0 L MONOCYTE % (test code = MO%) 6.3 % 0.0-10.0 N EOSINOPHIL % (test code = EO%) 1.4 % 0.0-5.0 N BASOPHIL % (test code = BA%) 0.5 % 0.0-1.0 N NUCLEATED RBC % (test code = NRBC%) 0.0 % 0-0 N NEUTROPHIL # (test code = NT#) 7.47 K/mm3 1.8-7.7 N IMMATURE GRANULOCYTE # (test code = IG#) 0.21 x10 3/uL 0-0.03 H LYMPHOCYTE # (test code = LY#) 0.95 K/mm3 1.0-5.0 L MONOCYTE # (test code = MO#) 0.59 K/mm3 0-0.8 N EOSINOPHIL # (test code = EO#) 0.13 K/mm3 0.0-0.5 N BASOPHIL # (test code = BA#) 0.05 K/mm3 0.0-0.2 N NUCLEATED RBC # (test code = NRBC#) 0.00 K/mm3 0.0-0.1 N STAIN ACCEPTABILITY (test code = STN ACCEPTABLE) TOTAL CELLS COUNTED (test code = TCC) #CELLS SEGMENTED NEUTROPHILS (test code = SEG) % 39-69 LYMPHOCYTE (test code = LYMPH) % 25-55 MONOCYTE (test code = MON) % 0-10 MORPHOLOGY COMMENT (test code = MOC) PLATELET ESTIMATE (test code = PLTEST) PLATELET MORPHOLOGY (test code = PLTMORPH) [id number] 06:59:00* Test Item Value Reference Range Interpretation Comments GLUBED (test code = GLUBED) 238 mg/dL 74-106 H Performed by certified photogravure press operator at [facility] [id number] 20:45:00* Test Item Value Reference Range Interpretation Comments GLUBED (test code = GLUBED) 175 mg/dL 74-106 H Performed by certified photogravure press operator at [facility] [id number] 18:02:00* Test Item Value Reference Range Interpretation Comments GLUBED (test code = GLUBED) 204 mg/dL 74-106 H Performed by certified photogravure press operator at [facility] [id number] 13:09:00* Test Item Value Reference Range Interpretation Comments GLUBED (test code = GLUBED) 148 mg/dL 74-106 H Performed by certified photogravure press operator at [facility] BASIC METABOLIC [id number] 05:44:00* Test Item Value Reference Range Interpretation Comments SODIUM (test code = NA) 139 mmol/L 136-145 N POTASSIUM (test code = K) 4.7 mmol/L 3.5-5.1 N CHLORIDE (test code = CL) 104.0 mmol/L 98-107 N CARBON DIOXIDE (test code = CO2) 29.0 mmol/L 21-32 N ANION GAP (test code = GAP) 10.7 10-20 N GLUCOSE (test code = GLU) 192 mg/dL 74-106 H BLOOD UREA NITROGEN (test code = BUN) 44 mg/dL 7-18 H RESULT VERIFIED BY REPEAT ANALYSIS GLOMERULAR FILTRATION RATE (test code = GFR) 8 mL/min >=60 Estimated GFR by using Modified MDRD formula.Chronic kidney disease is defined as either kidney damageor GFR <60 mL/min/1.73 m2 for >3 months. CREATININE (test code = CREAT) 6.80 mg/dL 0.7-1.3 H BUN/CREATININE RATIO (test code = BUN/CREA) 6.5 10-20 L CALCIUM (test code = CA) 8.0 mg/dL 8.5-10.1 L [id number] 05:12:00* Test Item Value Reference Range Interpretation Comments GLUBED (test code = GLUBED) 181 mg/dL 74-106 H Performed by certified photogravure press operator at [facility] BASIC METABOLIC [id number] 05:03:00* Test Item Value Reference Range Interpretation Comments SODIUM (test code = NA) 139 mmol/L 136-145 N POTASSIUM (test code = K) 4.7 mmol/L 3.5-5.1 N CHLORIDE (test code = CL) 104.0 mmol/L 98-107 N CARBON DIOXIDE (test code = CO2) mmol/L 21-32 ANION GAP (test code = GAP) 10-20 GLUCOSE (test code = GLU) mg/dL 74-106 BLOOD UREA NITROGEN (test code = BUN) mg/dL 7-18 GLOMERULAR FILTRATION RATE (test code = GFR) mL/min >=60 CREATININE (test code = CREAT) mg/dL 0.7-1.3 BUN/CREATININE RATIO (test code = BUN/CREA) 10-20 CALCIUM (test code = CA) mg/dL 8.5-10.1 [id number] 21:02:00* Test Item Value Reference Range Interpretation Comments GLUBED (test code = GLUBED) 299 mg/dL 74-106 H Performed by certified photogravure press operator at [facility] [id number] 16:55:00* Test Item Value Reference Range Interpretation Comments GLUBED (test code = GLUBED) 120 mg/dL 74-106 H Performed by certified photogravure press operator at [facility] [id number] 14:27:00* Test Item Value Reference Range Interpretation Comments GLUBED (test code = GLUBED) 117 mg/dL 74-106 H Performed by certified photogravure press operator at [facility] - MRI LOW EXT W/O CONT [id number] 12:18:00 FAX: Silvia Payan MD [phone] [place]: St: ADM Name: XOCHILT REYNA [facility] : [birth year] 41 Age/S: 77/M [address] [facility] Unit #: [id number] Loc: V.[address] [place] [id number] Phys: Silvia Contreras MD Acct: [id number] Dis Date: Status: ADM IN PHONE #: [phone] Exam Date: 07/19/2018 0955 FAX #: [phone] Reason: WOUNDS EXAMS: CPT CODE: [id number] MRI LOW EXT W/[place] [address] HISTORY: Wound. COMP ARISON: None available. MRI right foot without contrast: Bone marrow signal within the foot is normal. No edematous changes or erosive or destructive change. No abscess collection or fluid collection. Polyarticular joint space narrowing is noted. Visualized tendons and liga ments are normal. Mild edema and inflammation within the soft tissues is n onspecific finding. No osteochondral lesion of the talus. IMPRESSION: No osteomyelitis or erosive or destructive change. No drainable fluid or abscess collection. Mild edema within the soft ti ssues of the foot. Electronically Signed by David David on at 1218 Reported and signed by: Tessa Araiza CC: Silvia Contreras MD Technologist: Faheem Myers)(MR) Trnscrd Date/Time/By: 07/19/2018 (1218) : By: [email or web address] Orig Print D/T: S: 0 07/19/2018 (8105) PAGE 1 Signed Re port [id number] 11:55:00* Test Item Value Reference Range Interpretation Comments GLUBED (test code = GLUBED) 111 mg/dL 74-106 H Performed by certified photogravure press operator at [facility] CBC W/AUTO [id number] 11:12:00* Test Item Value Reference Range Interpretation Comments WHITE BLOOD CELL (test code = WBC) 8.5 K/mm3 4.5-12.5 N RED BLOOD CELL (test code = RBC) 3.48 mill/mm3 4.0-5.8 L HEMOGLOBIN (test code = HGB) 9.5 gram/dL 13.0-17.5 L HEMATOCRIT (test code = HCT) 32.7 % 42.0-52.0 L MEAN CELL VOLUME (test code = MCV) 94.0 fL 80-98 N MEAN CELL HGB (test code = MCH) 27.3 picogram 27.0-33.0 N MEAN CELL HGB CONCETRATION (test code = MCHC) 29.1 gram/dL 33.0-36. 0 L RED CELL DISTRIBUTION WIDTH (test code = RDW) 14.7 % 11.6-16. 2 N RED CELL DISTRIBUTION WIDTH SD (test code = RDW-SD) 49.5 fL 37 .0-51.0 N PLATELET COUNT (test code = PLT) 394 K/mm3 150-450 N MEAN PLATELET VOLUME (test code = MPV) 9.2 fL 6.7-11.0 N NEUTROPHIL % (test code = NT%) 77.1 % 39.0-69.0 H IMMATURE GRANULOCYTE % (test code = IG%) 3.3 % 0.0-5.0 N LYMPHOCYTE % (test code = LY%) 9.7 % 25.0-55.0 L MONOCYTE % (test code = MO%) 7.3 % 0.0-10.0 N EOSINOPHIL % (test code = EO%) 2.0 % 0.0-5.0 N BASOPHIL % (test code = BA%) 0.6 % 0.0-1.0 N NUCLEATED RBC % (test code = NRBC%) 0.0 % 0-0 N NEUTROPHIL # (test code = NT#) 6.53 K/mm3 1.8-7.7 N IMMATURE GRANULOCYTE # (test code = IG#) 0.28 x10 3/uL 0-0.03 H LYMPHOCYTE # (test code = LY#) 0.82 K/mm3 1.0-5.0 L MONOCYTE # (test code = MO#) 0.62 K/mm3 0-0.8 N EOSINOPHIL # (test code = EO#) 0.17 K/mm3 0.0-0.5 N BASOPHIL # (test code = BA#) 0.05 K/mm3 0.0-0.2 N NUCLEATED RBC # (test code = NRBC#) 0.00 K/mm3 0.0-0.1 N MANUAL DIFF REQUIRED (test code = MDIFF) NO, ONLY SCAN NEEDED DIFFERENTIAL [id number] 11:12:00* Test Item Value Reference Range Interpretation Comments STAIN ACCEPTABILITY (test code = STN ACCEPTABLE) STAIN ACCEPTABLE ANISOCYTOSIS (test code = ANISO) 2+ MICROCYTOSIS (test code = MICR) 2+ PLATELET ESTIMATE (test code = PLTEST) ADEQUATE PLATELET MORPHOLOGY (test code = PLTMORPH) NORMAL - MRI LOW EXT W/O CONT [id number] 10:03:00 FAX: Silvia Payan MD [phone] [place]: B St: [facility] FAX: Lady Kilgore [facility] [phone] Name: XOCHILT EPSTEIN [facility] : 1940 Age/S: 77/M [address] [facility] Unit #: [id number] Loc: V.2073 [address] [address] Phys: Lady Abraham DPM Acct: [id number] Dis Date: Status: ADM IN PHONE #: [phone] Exam Date: 07/19/2018 09 FAX #: [phone] Reason: WOUNDS EXAMS: CPT CODE: [id number] MRI LOW EXT W/[place] [address] HISTORY: Wound. COMPARISON scan from June 26, 2018. The left foot from June 22, 2018 MRI left foot without contrast: Patient is post resection at the base of the second proximal phalanx. The forefoot is demonstrating normal narrow signal. 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 The visualized tendons and ligaments are intact. Edema in the far posterior inferior calcaneus with irr egular margins. Ulceration seen along the medial margin of the plantar nahed face of the calcaneus. These findings would suggest osteomyelitis of the p osterior inferior calcaneus. The talus is without osteochondral lesion wit h normal marrow signal. The tarsal bones including the navicular bone and the cuboid bones are unremarkable. No drainable fluid or abscess col lection. Cellulitis along the medial posterior soft tissues. IMP RESSION: FINDINGS suspicious for osteomyelitis of the far post erior inferior calcaneus with erosion and edema. Electronica lly Signed by David David on 07/19/2018 at 1003 Re ported and signed by: Atif David M.D. CC: Silvia Contreras MD; Lady Coy DPM Technologist: Faheem Myers)(MR) Trnscrd Date/Time/By: 07/19/2018 (1003) : By: [email or web address] Orig Print D/T: S: 07/19/2018 (1006) PAGE 1 Signed Report BASIC METABOLIC PANEL 2018-07-19 09:36:00* Test Item Value Reference Range Interpretation Comments SODIUM (test code = NA) 140 mmol/L 136-145 N POTASSIUM (test code = K) 3.9 mmol/L 3.5-5.1 N CHLORIDE (test code = CL) 105.0 mmol/L 98-107 N CARBON DIOXIDE (test code = CO2) 26.0 mmol/L 21-32 N ANION GAP (test code = GAP) 12.9 10-20 N GLUCOSE (test code = GLU) 104 mg/dL 74-106 N BLOOD UREA NITROGEN (test code = BUN) 29 mg/dL 7-18 H GLOMERULAR FILTRATION RATE (test code = GFR) 10 mL/min >=60 Estimated GFR by using Modified MDRD formula.Chronic kidney disease is defined as either kidney damageor GFR <60 mL/min/1.73 m2 for >3 months. CREATININE (test code = CREAT) 5.60 mg/dL 0.7-1.3 H BUN/CREATININE RATIO (test code = BUN/CREA) 5.2 10-20 L CALCIUM (test code = CA) 8.3 mg/dL 8.5-10.1 L BASIC METABOLIC [id number] 09:30:00* Test Item Value Reference Range Interpretation Comments SODIUM (test code = NA) 140 mmol/L 136-145 N POTASSIUM (test code = K) 3.9 mmol/L 3.5-5.1 N CHLORIDE (test code = CL) 105.0 mmol/L 98-107 N CARBON DIOXIDE (test code = CO2) mmol/L 21-32 ANION GAP (test code = GAP) 10-20 GLUCOSE (test code = GLU) mg/dL 74-106 BLOOD UREA NITROGEN (test code = BUN) mg/dL 7-18 GLOMERULAR FILTRATION RATE (test code = GFR) mL/min >=60 CREATININE (test code = CREAT) mg/dL 0.7-1.3 BUN/CREATININE RATIO (test code = BUN/CREA) 10-20 CALCIUM (test code = CA) 8.3 mg/dL 8.5-10.1 L CBC W/AUTO [id number] 09:28:00* Test Item Value Reference Range Interpretation Comments WHITE BLOOD CELL (test code = WBC) 8.5 K/mm3 4.5-12.5 N RED BLOOD CELL (test code = RBC) 3.48 mill/mm3 4.0-5.8 L HEMOGLOBIN (test code = HGB) 9.5 gram/dL 13.0-17.5 L HEMATOCRIT (test code = HCT) 32.7 % 42.0-52.0 L MEAN CELL VOLUME (test code = MCV) 94.0 fL 80-98 N MEAN CELL HGB (test code = MCH) 27.3 picogram 27.0-33.0 N MEAN CELL HGB CONCETRATION (test code = MCHC) 29.1 gram/dL 33.0-36. 0 L RED CELL DISTRIBUTION WIDTH (test code = RDW) 14.7 % 11.6-16. 2 N RED CELL DISTRIBUTION WIDTH SD (test code = RDW-SD) 49.5 fL 37 .0-51.0 N PLATELET COUNT (test code = PLT) 394 K/mm3 150-450 N MEAN PLATELET VOLUME (test code = MPV) 9.2 fL 6.7-11.0 N NEUTROPHIL % (test code = NT%) 77.1 % 39.0-69.0 H IMMATURE GRANULOCYTE % (test code = IG%) 3.3 % 0.0-5.0 N LYMPHOCYTE % (test code = LY%) 9.7 % 25.0-55.0 L MONOCYTE % (test code = MO%) 7.3 % 0.0-10.0 N EOSINOPHIL % (test code = EO%) 2.0 % 0.0-5.0 N BASOPHIL % (test code = BA%) 0.6 % 0.0-1.0 N NUCLEATED RBC % (test code = NRBC%) 0.0 % 0-0 N NEUTROPHIL # (test code = NT#) 6.53 K/mm3 1.8-7.7 N IMMATURE GRANULOCYTE # (test code = IG#) 0.28 x10 3/uL 0-0.03 H LYMPHOCYTE # (test code = LY#) 0.82 K/mm3 1.0-5.0 L MONOCYTE # (test code = MO#) 0.62 K/mm3 0-0.8 N EOSINOPHIL # (test code = EO#) 0.17 K/mm3 0.0-0.5 N BASOPHIL # (test code = BA#) 0.05 K/mm3 0.0-0.2 N NUCLEATED RBC # (test code = NRBC#) 0.00 K/mm3 0.0-0.1 N MANUAL DIFF REQUIRED (test code = MDIFF) NO, ONLY SCAN NEEDED DIFFERENTIAL [id number] 09:28:00* Test Item Value Reference Range Interpretation Comments STAIN ACCEPTABILITY (test code = STN ACCEPTABLE) CABOT RINGS (test code = CAB) MORPHOLOGY COMMENT (test code = MOC) PLATELET ESTIMATE (test code = PLTEST) PLATELET MORPHOLOGY (test code = PLTMORPH) CBC W/AUTO [id number] 09:28:00* Test Item Value Reference Range Interpretation Comments WHITE BLOOD CELL (test code = WBC) 8.5 K/mm3 4.5-12.5 N RED BLOOD CELL (test code = RBC) 3.48 mill/mm3 4.0-5.8 L HEMOGLOBIN (test code = HGB) 9.5 gram/dL 13.0-17.5 L HEMATOCRIT (test code = HCT) 32.7 % 42.0-52.0 L MEAN CELL VOLUME (test code = MCV) 94.0 fL 80-98 N MEAN CELL HGB (test code = MCH) 27.3 picogram 27.0-33.0 N MEAN CELL HGB CONCETRATION (test code = MCHC) 29.1 gram/dL 33.0-36. 0 L RED CELL DISTRIBUTION WIDTH (test code = RDW) 14.7 % 11.6-16. 2 N RED CELL DISTRIBUTION WIDTH SD (test code = RDW-SD) 49.5 fL 37 .0-51.0 N PLATELET COUNT (test code = PLT) 394 K/mm3 150-450 N MEAN PLATELET VOLUME (test code = MPV) 9.2 fL 6.7-11.0 N NEUTROPHIL % (test code = NT%) 77.1 % 39.0-69.0 H IMMATURE GRANULOCYTE % (test code = IG%) 3.3 % 0.0-5.0 N LYMPHOCYTE % (test code = LY%) 9.7 % 25.0-55.0 L MONOCYTE % (test code = MO%) 7.3 % 0.0-10.0 N EOSINOPHIL % (test code = EO%) 2.0 % 0.0-5.0 N BASOPHIL % (test code = BA%) 0.6 % 0.0-1.0 N NUCLEATED RBC % (test code = NRBC%) 0.0 % 0-0 N NEUTROPHIL # (test code = NT#) 6.53 K/mm3 1.8-7.7 N IMMATURE GRANULOCYTE # (test code = IG#) 0.28 x10 3/uL 0-0.03 H LYMPHOCYTE # (test code = LY#) 0.82 K/mm3 1.0-5.0 L MONOCYTE # (test code = MO#) 0.62 K/mm3 0-0.8 N EOSINOPHIL # (test code = EO#) 0.17 K/mm3 0.0-0.5 N BASOPHIL # (test code = BA#) 0.05 K/mm3 0.0-0.2 N NUCLEATED RBC # (test code = NRBC#) 0.00 K/mm3 0.0-0.1 N MANUAL DIFF REQUIRED (test code = MDIFF) NO, ONLY SCAN NEEDED DIFFERENTIAL [id number] 09:28:00* Test Item Value Reference Range Interpretation Comments STAIN ACCEPTABILITY (test code = STN ACCEPTABLE) CABOT RINGS (test code = CAB) MORPHOLOGY COMMENT (test code = MOC) PLATELET ESTIMATE (test code = PLTEST) PLATELET MORPHOLOGY (test code = PLTMORPH) CBC W/AUTO [id number] 09:28:00* Test Item Value Reference Range Interpretation Comments WHITE BLOOD CELL (test code = WBC) 8.5 K/mm3 4.5-12.5 N RED BLOOD CELL (test code = RBC) 3.48 mill/mm3 4.0-5.8 L HEMOGLOBIN (test code = HGB) 9.5 gram/dL 13.0-17.5 L HEMATOCRIT (test code = HCT) 32.7 % 42.0-52.0 L MEAN CELL VOLUME (test code = MCV) 94.0 fL 80-98 N MEAN CELL HGB (test code = MCH) 27.3 picogram 27.0-33.0 N MEAN CELL HGB CONCETRATION (test code = MCHC) 29.1 gram/dL 33.0-36. 0 L RED CELL DISTRIBUTION WIDTH (test code = RDW) 14.7 % 11.6-16. 2 N RED CELL DISTRIBUTION WIDTH SD (test code = RDW-SD) 49.5 fL 37 .0-51.0 N PLATELET COUNT (test code = PLT) 394 K/mm3 150-450 N MEAN PLATELET VOLUME (test code = MPV) 9.2 fL 6.7-11.0 N NEUTROPHIL % (test code = NT%) 77.1 % 39.0-69.0 H IMMATURE GRANULOCYTE % (test code = IG%) 3.3 % 0.0-5.0 N LYMPHOCYTE % (test code = LY%) 9.7 % 25.0-55.0 L MONOCYTE % (test code = MO%) 7.3 % 0.0-10.0 N EOSINOPHIL % (test code = EO%) 2.0 % 0.0-5.0 N BASOPHIL % (test code = BA%) 0.6 % 0.0-1.0 N NUCLEATED RBC % (test code = NRBC%) 0.0 % 0-0 N NEUTROPHIL # (test code = NT#) 6.53 K/mm3 1.8-7.7 N IMMATURE GRANULOCYTE # (test code = IG#) 0.28 x10 3/uL 0-0.03 H LYMPHOCYTE # (test code = LY#) 0.82 K/mm3 1.0-5.0 L MONOCYTE # (test code = MO#) 0.62 K/mm3 0-0.8 N EOSINOPHIL # (test code = EO#) 0.17 K/mm3 0.0-0.5 N BASOPHIL # (test code = BA#) 0.05 K/mm3 0.0-0.2 N NUCLEATED RBC # (test code = NRBC#) 0.00 K/mm3 0.0-0.1 N MANUAL DIFF REQUIRED (test code = MDIFF) NO, ONLY SCAN NEEDED DIFFERENTIAL [id number] 09:28:00* Test Item Value Reference Range Interpretation Comments STAIN ACCEPTABILITY (test code = STN ACCEPTABLE) MORPHOLOGY COMMENT (test code = MOC) PLATELET ESTIMATE (test code = PLTEST) PLATELET MORPHOLOGY (test code = PLTMORPH) CBC W/AUTO [id number] 09:28:00* Test Item Value Reference Range Interpretation Comments WHITE BLOOD CELL (test code = WBC) 8.5 K/mm3 4.5-12.5 N RED BLOOD CELL (test code = RBC) 3.48 mill/mm3 4.0-5.8 L HEMOGLOBIN (test code = HGB) 9.5 gram/dL 13.0-17.5 L HEMATOCRIT (test code = HCT) 32.7 % 42.0-52.0 L MEAN CELL VOLUME (test code = MCV) 94.0 fL 80-98 N MEAN CELL HGB (test code = MCH) 27.3 picogram 27.0-33.0 N MEAN CELL HGB CONCETRATION (test code = MCHC) 29.1 gram/dL 33.0-36. 0 L RED CELL DISTRIBUTION WIDTH (test code = RDW) 14.7 % 11.6-16. 2 N RED CELL DISTRIBUTION WIDTH SD (test code = RDW-SD) 49.5 fL 37 .0-51.0 N PLATELET COUNT (test code = PLT) 394 K/mm3 150-450 N MEAN PLATELET VOLUME (test code = MPV) 9.2 fL 6.7-11.0 N NEUTROPHIL % (test code = NT%) 77.1 % 39.0-69.0 H IMMATURE GRANULOCYTE % (test code = IG%) 3.3 % 0.0-5.0 N LYMPHOCYTE % (test code = LY%) 9.7 % 25.0-55.0 L MONOCYTE % (test code = MO%) 7.3 % 0.0-10.0 N EOSINOPHIL % (test code = EO%) 2.0 % 0.0-5.0 N BASOPHIL % (test code = BA%) 0.6 % 0.0-1.0 N NUCLEATED RBC % (test code = NRBC%) 0.0 % 0-0 N NEUTROPHIL # (test code = NT#) 6.53 K/mm3 1.8-7.7 N IMMATURE GRANULOCYTE # (test code = IG#) 0.28 x10 3/uL 0-0.03 H LYMPHOCYTE # (test code = LY#) 0.82 K/mm3 1.0-5.0 L MONOCYTE # (test code = MO#) 0.62 K/mm3 0-0.8 N EOSINOPHIL # (test code = EO#) 0.17 K/mm3 0.0-0.5 N BASOPHIL # (test code = BA#) 0.05 K/mm3 0.0-0.2 N NUCLEATED RBC # (test code = NRBC#) 0.00 K/mm3 0.0-0.1 N MANUAL DIFF REQUIRED (test code = MDIFF) NO, ONLY SCAN NEEDED DIFFERENTIAL [id number] 09:28:00* Test Item Value Reference Range Interpretation Comments STAIN ACCEPTABILITY (test code = STN ACCEPTABLE) CABOT RINGS (test code = CAB) MORPHOLOGY COMMENT (test code = MOC) PLATELET ESTIMATE (test code = PLTEST) PLATELET MORPHOLOGY (test code = PLTMORPH) [id number] 06:03:00* Test Item Value Reference Range Interpretation Comments GLUBED (test code = GLUBED) 107 mg/dL 74-106 H Performed by certified photogravure press operator at [facility] [id number] 21:03:00* Test Item Value Reference Range Interpretation Comments GLUBED (test code = GLUBED) 142 mg/dL 74-106 H Performed by certified photogravure press operator at [facility] [id number] 16:46:00* Test Item Value Reference Range Interpretation Comments GLUBED (test code = GLUBED) 131 mg/dL 74-106 H Performed by certified photogravure press operator at [facility] [id number] 11:52:00* Test Item Value Reference Range Interpretation Comments GLUBED (test code = GLUBED) 151 mg/dL 74-106 H Performed by certified photogravure press operator at [facility] HEPATITIS B CORE ANTIBODY,[id number] 08:17:00* Test Item Value Reference Range Interpretation Comments HEPATITIS B CORE ANTIBODY,TOT (test code = HBCAB) Negative Nega tive Performed At: [facility] [address] [id number] Pascual Savage MD Ph:[phone] [id number] 06:22:00* Test Item Value Reference Range Interpretation Comments GLUBED (test code = GLUBED) 146 mg/dL 74-106 H Performed by certified photogravure press operator at [facility] AB HEPATITIS B [id number] 06:17:00* Test Item Value Reference Range Interpretation Comments AB HEPATITIS B SURFACE (test code = HBSAB) Non Reactive () Non Reactive: Inconsistent with immunity, less than 10 mIU/mL Reactive: Consistent with immunity, greater than 9.9 mIU/mL HEPATITIS B CORE ANTIBODY,[id number] 06:17:00* Test Item Value Reference Range Interpretation Comments HEPATITIS B CORE ANTIBODY,IGM (test code = HBCMAB) NEG ATIVE AB HEPATITIS B [id number] 06:17:00* Test Item Value Reference Range Interpretation Comments AB HEPATITIS B SURFACE (test code = HBSAB) Non Reactive () Non Reactive: Inconsistent with immunity, less than 10 mIU/mL Reactive: Consistent with immunity, greater than 9.9 mIU/mL HEPATITIS B CORE ANTIBODY,[id number] 06:17:00* Test Item Value Reference Range Interpretation Comments HEPATITIS B CORE ANTIBODY,IGM (test code = HBCMAB) Negative Neg ative Performed At: [facility] [address] [id number] Pascual Savage MD Ph:[phone] BASIC METABOLIC [id number] 05:46:00* Test Item Value Reference Range Interpretation Comments SODIUM (test code = NA) 140 mmol/L 136-145 N POTASSIUM (test code = K) 3.5 mmol/L 3.5-5.1 N CHLORIDE (test code = CL) 104.0 mmol/L 98-107 N CARBON DIOXIDE (test code = CO2) 29.0 mmol/L 21-32 N ANION GAP (test code = GAP) 10.5 10-20 N GLUCOSE (test code = GLU) 156 mg/dL 74-106 H BLOOD UREA NITROGEN (test code = BUN) 19 mg/dL 7-18 H RESULT VERIFIED BY REPEAT ANALYSIS GLOMERULAR FILTRATION RATE (test code = GFR) 14 mL/min >=60 Estimated GFR by using Modified MDRD formula.Chronic kidney disease is defined as either kidney damageor GFR <60 mL/min/1.73 m2 for >3 months. CREATININE (test code = CREAT) 4.20 mg/dL 0.7-1.3 H BUN/CREATININE RATIO (test code = BUN/CREA) 4.5 10-20 L CALCIUM (test code = CA) 8.4 mg/dL 8.5-10.1 L BASIC METABOLIC [id number] 05:28:00* Test Item Value Reference Range Interpretation Comments SODIUM (test code = NA) 140 mmol/L 136-145 N POTASSIUM (test code = K) 3.5 mmol/L 3.5-5.1 N CHLORIDE (test code = CL) 104.0 mmol/L 98-107 N CARBON DIOXIDE (test code = CO2) mmol/L 21-32 ANION GAP (test code = GAP) 10-20 GLUCOSE (test code = GLU) mg/dL 74-106 BLOOD UREA NITROGEN (test code = BUN) mg/dL 7-18 GLOMERULAR FILTRATION RATE (test code = GFR) mL/min >=60 CREATININE (test code = CREAT) mg/dL 0.7-1.3 BUN/CREATININE RATIO (test code = BUN/CREA) 10-20 CALCIUM (test code = CA) mg/dL 8.5-10.1 [id number] 21:58:00* Test Item Value Reference Range Interpretation Comments GLUBED (test code = GLUBED) 188 mg/dL 74-106 H Performed by certified photogravure press operator at [facility] FINGER/TOES AMP.,[id number] 15:18:00 RUN DATE: 07/17/18 [place] - Lab PAGE 1 RUN TIME: 1519 Specimen Inqui ry RUN USER: INTERFACE PATIENT: XOCHILT EPSTEIN ACCT #: [id number] LOC: NETTA U #: [id number] AGE/SX: 77/M ROOM: 2073 RE06/22/18REG DR: Silvia Contreras MD : 40 BED: A DIS: STATUS: ADM IN TLOC: SPEC #: [id number] RECD: 07/08/18 STATUS: MARLO SHETTY #: [id number] BERNARD: 07/05/18- SUBM DR: Shamir Thomson DP M ENTERED: 07/08/18 SP TYPE: FINGER/TOE OTHR DR: Hernando Encarnacion MD, MD,Lady Mehta DPM, Zaher MD Watkins, Herbert LeonardORDERED: GROSS COPIES TO: Hernando Canales MD [address] [place], [place] [address] Shamir ThomsonM [address] [place] [address] Albaro HICKS,Keshia cobb [facility] [address] [place] [address] Lady AbrahamM [address] [facility] [address] [address] Reg Luke MD [address] [place] [address] Kwaku Clementnaryaneth [address] [place] [address] PROCEDURES: SVETLANA (07/17/18144) TISSUES: TOE, NOS - 2nd DIGIT LEFT FOOT CONTINUED ON NEXT PAGE RUN DATE: 07/17/18 [facility] PAGE 2 RUN TIME: 1519 Specimen Inquiry RUN USER: INTERFACE SPEC #: [id number] PATIENT: XOCHILT EPSTEIN #[id number] (Continued) CLINICAL HISTORY COLLECTION DATE: 07/05/18 FINAL DIAGNOSIS Left foot, second digit amputation: GANGRENOUS TOE W/ A 08939, [address] MACROSCOPIC The specimen is received in formalin, labeled with the patient's name, and identified as "2nd digit left foot". The specimen consists of a black gangrenous appearing toe which measures 3.6 cm in length by 1.4 cm in width by 1.3 cm in height. The t oe nail is thickened and dystrophic. A sample of skin and soft tissue from th e toe are submitted for microscopic evaluation in cassette (1A). The specimen is placed in decalcification solution and will be allowed to decalcify before further sampling. After the specimen is allowed to decalcify a cross section al sample of the toe with the ulceration and the bone are submitted for micros copic evaluation in cassette (1B) along with a perpendicular section including the inked margin. GROSS PERFORMED AT [facility] [address] [place] [address] (P)[phone] MICROSCOPIC All of the stains, including any contr ols performed, stain appropriately. MICROSCOPIC PERFORMED AT [facility] [address] [place] [address] (P)[phone] CONTINUED ON NEXT PAGE RUN DATE: 07/17/18 [facility] PAGE 3 RUN TIME: 1518 Spec imen Inquiry RUN USER: INTERFACE SPEC #: [id number] PATIENT: XOCHILT TITUS #[id number] (Continued) PERF ORMING SITE Diagnosis performed at: [facility], [place] [address] [facility] [address] ------ ------ Signed SIGNATURE ON FILE Sol Dozier MD 06/22 11/08 1518 END OF REPORT - XR CHEST 1 [id number] 09:35:00 FAX: Silvia Payan MD [phone] [place]: St: [facility] FAX: Alexia Hillman MD [phone] Name: XOCHILT EPSTEIN [facility] : 1940 Age/S: 77/M [address] [facility] Unit #: [id number] Loc: V.[address] [place] [address] Phys: Alexia Clinton MD Acct: [id number] Dis Date: Status: ADM IN PHONE #: [phone] Exam Date: 07/17/2018 0845 FAX #: [phone] Reason: sob EXAMS: CPT CODE: [id number] XR CHEST 1 V 90639 HISTORY: Shortness of breath. COMPARISON: July 12, 2018. Left and right ICD is unchanged. Mild congestion. Small bi basal effusions. Subsegmental atelectasis. Cardiomegaly. I MPRESSION: Mild congestion. Small bibasal effusions with subse gmental atelectasis is unchanged. at 0935 Reported and sign ed by: tAif David M.D. CC: Silvia Contreras MD; Alexia Monet MD Technologist: Tonja Albarado(R); Jamila quigley RT(R) [facility] Date/Time/By: 07/17/2018 (0935) : By: [email or web address] Orig Print D/T: S: 07/17/2018 (0986) PAGE 1 Signed Report BASIC METABOLIC [id number] 07:33:00* Test Item Value Reference Range Interpretation Comments SODIUM (test code = NA) 139 mmol/L 136-145 N POTASSIUM (test code = K) 3.4 mmol/L 3.5-5.1 L CHLORIDE (test code = CL) 103.0 mmol/L 98-107 N CARBON DIOXIDE (test code = CO2) 26.0 mmol/L 21-32 N ANION GAP (test code = GAP) 13.4 10-20 N GLUCOSE (test code = GLU) 150 mg/dL 74-106 H BLOOD UREA NITROGEN (test code = BUN) 31 mg/dL 7-18 H GLOMERULAR FILTRATION RATE (test code = GFR) 10 mL/min >=60 Estimated GFR by using Modified MDRD formula.Chronic kidney disease is defined as either kidney damageor GFR <60 mL/min/1.73 m2 for >3 months. CREATININE (test code = CREAT) 5.70 mg/dL 0.7-1.3 H BUN/CREATININE RATIO (test code = BUN/CREA) 5.4 10-20 L CALCIUM (test code = CA) 8.0 mg/dL 8.5-10.1 L BASIC METABOLIC [id number] 07:25:00* Test Item Value Reference Range Interpretation Comments SODIUM (test code = NA) 139 mmol/L 136-145 N POTASSIUM (test code = K) 3.4 mmol/L 3.5-5.1 L CHLORIDE (test code = CL) 103.0 mmol/L 98-107 N CARBON DIOXIDE (test code = CO2) mmol/L 21-32 ANION GAP (test code = GAP) 10-20 GLUCOSE (test code = GLU) mg/dL 74-106 BLOOD UREA NITROGEN (test code = BUN) mg/dL 7-18 GLOMERULAR FILTRATION RATE (test code = GFR) mL/min >=60 CREATININE (test code = CREAT) mg/dL 0.7-1.3 BUN/CREATININE RATIO (test code = BUN/CREA) 10-20 CALCIUM (test code = CA) mg/dL 8.5-10.1 [id number] 05:32:00* Test Item Value Reference Range Interpretation Comments GLUBED (test code = GLUBED) 156 mg/dL 74-106 H Performed by certified photogravure press operator at [facility] [id number] 21:02:00* Test Item Value Reference Range Interpretation Comments GLUBED (test code = GLUBED) 181 mg/dL 74-106 H Performed by certified photogravure press operator at [facility] [id number] 16:11:00* Test Item Value Reference Range Interpretation Comments GLUBED (test code = GLUBED) 161 mg/dL 74-106 H Performed by certified photogravure press operator at [facility] [id number] 16:08:00* Test Item Value Reference Range Interpretation Comments GLUBED (test code = GLUBED) 160 mg/dL 74-106 H Performed by certified photogravure press operator at [facility] [id number] 11:15:00* Test Item Value Reference Range Interpretation Comments GLUBED (test code = GLUBED) 172 mg/dL 74-106 H Performed by certified photogravure press operator at [facility] BASIC METABOLIC [id number] 06:27:00* Test Item Value Reference Range Interpretation Comments SODIUM (test code = NA) 139 mmol/L 136-145 N POTASSIUM (test code = K) 3.2 mmol/L 3.5-5.1 L CHLORIDE (test code = CL) 103.0 mmol/L 98-107 N CARBON DIOXIDE (test code = CO2) 27.0 mmol/L 21-32 N ANION GAP (test code = GAP) 12.2 10-20 N GLUCOSE (test code = GLU) 147 mg/dL 74-106 H BLOOD UREA NITROGEN (test code = BUN) 23 mg/dL 7-18 H GLOMERULAR FILTRATION RATE (test code = GFR) 13 mL/min >=60 Estimated GFR by using Modified MDRD formula.Chronic kidney disease is defined as either kidney damageor GFR <60 mL/min/1.73 m2 for >3 months. CREATININE (test code = CREAT) 4.40 mg/dL 0.7-1.3 H BUN/CREATININE RATIO (test code = BUN/CREA) 5.2 10-20 L CALCIUM (test code = CA) 8.1 mg/dL 8.5-10.1 L BASIC METABOLIC [id number] 06:14:00* Test Item Value Reference Range Interpretation Comments SODIUM (test code = NA) 139 mmol/L 136-145 N POTASSIUM (test code = K) 3.2 mmol/L 3.5-5.1 L CHLORIDE (test code = CL) 103.0 mmol/L 98-107 N CARBON DIOXIDE (test code = CO2) mmol/L 21-32 ANION GAP (test code = GAP) 10-20 GLUCOSE (test code = GLU) mg/dL 74-106 BLOOD UREA NITROGEN (test code = BUN) mg/dL 7-18 GLOMERULAR FILTRATION RATE (test code = GFR) mL/min >=60 CREATININE (test code = CREAT) mg/dL 0.7-1.3 BUN/CREATININE RATIO (test code = BUN/CREA) 10-20 CALCIUM (test code = CA) mg/dL 8.5-10.1 [id number] 05:59:00* Test Item Value Reference Range Interpretation Comments GLUBED (test code = GLUBED) 151 mg/dL 74-106 H Performed by certified photogravure press operator at [facility] CBC W/AUTO [id number] 05:52:00* Test Item Value Reference Range Interpretation Comments WHITE BLOOD CELL (test code = WBC) 9.7 K/mm3 4.5-12.5 N RED BLOOD CELL (test code = RBC) 3.30 mill/mm3 4.0-5.8 L HEMOGLOBIN (test code = HGB) 9.5 gram/dL 13.0-17.5 L HEMATOCRIT (test code = HCT) 30.0 % 42.0-52.0 L MEAN CELL VOLUME (test code = MCV) 90.9 fL 80-98 N MEAN CELL HGB (test code = MCH) 28.8 picogram 27.0-33.0 N MEAN CELL HGB CONCETRATION (test code = MCHC) 31.7 gram/dL 33.0-36. 0 L RED CELL DISTRIBUTION WIDTH (test code = RDW) 14.8 % 11.6-16. 2 N RED CELL DISTRIBUTION WIDTH SD (test code = RDW-SD) 47.4 fL 37 .0-51.0 N PLATELET COUNT (test code = PLT) 409 K/mm3 150-450 N MEAN PLATELET VOLUME (test code = MPV) 9.2 fL 6.7-11.0 N NEUTROPHIL % (test code = NT%) 82.0 % 39.0-69.0 H IMMATURE GRANULOCYTE % (test code = IG%) 1.5 % 0.0-5.0 N LYMPHOCYTE % (test code = LY%) 7.1 % 25.0-55.0 L MONOCYTE % (test code = MO%) 8.8 % 0.0-10.0 N EOSINOPHIL % (test code = EO%) 0.2 % 0.0-5.0 N BASOPHIL % (test code = BA%) 0.4 % 0.0-1.0 N NUCLEATED RBC % (test code = NRBC%) 0.0 % 0-0 N NEUTROPHIL # (test code = NT#) 7.95 K/mm3 1.8-7.7 H IMMATURE GRANULOCYTE # (test code = IG#) 0.15 x10 3/uL 0-0.03 H LYMPHOCYTE # (test code = LY#) 0.69 K/mm3 1.0-5.0 L MONOCYTE # (test code = MO#) 0.85 K/mm3 0-0.8 H EOSINOPHIL # (test code = EO#) 0.02 K/mm3 0.0-0.5 N BASOPHIL # (test code = BA#) 0.04 K/mm3 0.0-0.2 N NUCLEATED RBC # (test code = NRBC#) 0.00 K/mm3 0.0-0.1 N [id number] 21:27:00* Test Item Value Reference Range Interpretation Comments GLUBED (test code = GLUBED) 199 mg/dL 74-106 H Performed by certified photogravure press operator at [facility] [id number] 17:13:00* Test Item Value Reference Range Interpretation Comments GLUBED (test code = GLUBED) 182 mg/dL 74-106 H Performed by certified photogravure press operator at [facility] [id number] 17:04:00* Test Item Value Reference Range Interpretation Comments VANCOMYCIN (test code = VANCO) 17.6 UG/ML 5.0-45.0 N [id number] 12:36:00* Test Item Value Reference Range Interpretation Comments GLUBED (test code = GLUBED) 148 mg/dL 74-106 H Performed by certified photogravure press operator at [facility] [id number] 11:21:00* Test Item Value Reference Range Interpretation Comments GLUBED (test code = GLUBED) 150 mg/dL 74-106 H Performed by certified photogravure press operator at [facility] [id number] 06:23:00* Test Item Value Reference Range Interpretation Comments GLUBED (test code = GLUBED) 133 mg/dL 74-106 H Performed by certified photogravure press operator at [facility] BASIC METABOLIC [id number] 05:12:00* Test Item Value Reference Range Interpretation Comments SODIUM (test code = NA) 141 mmol/L 136-145 N POTASSIUM (test code = K) 3.4 mmol/L 3.5-5.1 L CHLORIDE (test code = CL) 106.0 mmol/L 98-107 N CARBON DIOXIDE (test code = CO2) 22.0 mmol/L 21-32 N ANION GAP (test code = GAP) 16.4 10-20 N GLUCOSE (test code = GLU) 129 mg/dL 74-106 H BLOOD UREA NITROGEN (test code = BUN) 32 mg/dL 7-18 H RESULT VERIFIED BY REPEAT ANALYSIS GLOMERULAR FILTRATION RATE (test code = GFR) 10 mL/min >=60 Estimated GFR by using Modified MDRD formula.Chronic kidney disease is defined as either kidney damageor GFR <60 mL/min/1.73 m2 for >3 months. CREATININE (test code = CREAT) 5.80 mg/dL 0.7-1.3 H BUN/CREATININE RATIO (test code = BUN/CREA) 5.5 10-20 L CALCIUM (test code = CA) 8.4 mg/dL 8.5-10.1 L CBC W/AUTO [id number] 05:07:00* Test Item Value Reference Range Interpretation Comments WHITE BLOOD CELL (test code = WBC) 9.9 K/mm3 4.5-12.5 N RED BLOOD CELL (test code = RBC) 3.17 mill/mm3 4.0-5.8 L HEMOGLOBIN (test code = HGB) 8.7 gram/dL 13.0-17.5 L HEMATOCRIT (test code = HCT) 29.3 % 42.0-52.0 L MEAN CELL VOLUME (test code = MCV) 92.4 fL 80-98 N MEAN CELL HGB (test code = MCH) 27.4 picogram 27.0-33.0 N MEAN CELL HGB CONCETRATION (test code = MCHC) 29.7 gram/dL 33.0-36. 0 L RED CELL DISTRIBUTION WIDTH (test code = RDW) 15.1 % 11.6-16. 2 N RED CELL DISTRIBUTION WIDTH SD (test code = RDW-SD) 47.6 fL 37 .0-51.0 N PLATELET COUNT (test code = PLT) 390 K/mm3 150-450 N MEAN PLATELET VOLUME (test code = MPV) 9.2 fL 6.7-11.0 N NEUTROPHIL % (test code = NT%) 84.5 % 39.0-69.0 H IMMATURE GRANULOCYTE % (test code = IG%) 1.6 % 0.0-5.0 N LYMPHOCYTE % (test code = LY%) 6.8 % 25.0-55.0 L MONOCYTE % (test code = MO%) 6.8 % 0.0-10.0 N EOSINOPHIL % (test code = EO%) 0.0 % 0.0-5.0 N BASOPHIL % (test code = BA%) 0.3 % 0.0-1.0 N NUCLEATED RBC % (test code = NRBC%) 0.0 % 0-0 N NEUTROPHIL # (test code = NT#) 8.38 K/mm3 1.8-7.7 H IMMATURE GRANULOCYTE # (test code = IG#) 0.16 x10 3/uL 0-0.03 H LYMPHOCYTE # (test code = LY#) 0.68 K/mm3 1.0-5.0 L MONOCYTE # (test code = MO#) 0.68 K/mm3 0-0.8 N EOSINOPHIL # (test code = EO#) 0.00 K/mm3 0.0-0.5 N BASOPHIL # (test code = BA#) 0.03 K/mm3 0.0-0.2 N NUCLEATED RBC # (test code = NRBC#) 0.00 K/mm3 0.0-0.1 N MANUAL DIFF REQUIRED (test code = MDIFF) NO, ONLY SCAN NEEDED DIFFERENTIAL [id number] 05:07:00* Test Item Value Reference Range Interpretation Comments STAIN ACCEPTABILITY (test code = STN ACCEPTABLE) STAIN ACCEPTABLE POIKILOCYTOSIS (test code = POIK) 1+ ANISOCYTOSIS (test code = ANISO) 1+ PLATELET ESTIMATE (test code = PLTEST) ADEQUATE PLATELET MORPHOLOGY (test code = PLTMORPH) NORMAL BASIC METABOLIC [id number] 04:49:00* Test Item Value Reference Range Interpretation Comments SODIUM (test code = NA) 141 mmol/L 136-145 N POTASSIUM (test code = K) 3.4 mmol/L 3.5-5.1 L CHLORIDE (test code = CL) 106.0 mmol/L 98-107 N CARBON DIOXIDE (test code = CO2) mmol/L 21-32 ANION GAP (test code = GAP) 10-20 GLUCOSE (test code = GLU) mg/dL 74-106 BLOOD UREA NITROGEN (test code = BUN) mg/dL 7-18 GLOMERULAR FILTRATION RATE (test code = GFR) mL/min >=60 CREATININE (test code = CREAT) mg/dL 0.7-1.3 BUN/CREATININE RATIO (test code = BUN/CREA) 10-20 CALCIUM (test code = CA) mg/dL 8.5-10.1 CBC W/AUTO [id number] 04:44:00* Test Item Value Reference Range Interpretation Comments WHITE BLOOD CELL (test code = WBC) 9.9 K/mm3 4.5-12.5 N RED BLOOD CELL (test code = RBC) 3.17 mill/mm3 4.0-5.8 L HEMOGLOBIN (test code = HGB) 8.7 gram/dL 13.0-17.5 L HEMATOCRIT (test code = HCT) 29.3 % 42.0-52.0 L MEAN CELL VOLUME (test code = MCV) 92.4 fL 80-98 N MEAN CELL HGB (test code = MCH) 27.4 picogram 27.0-33.0 N MEAN CELL HGB CONCETRATION (test code = MCHC) 29.7 gram/dL 33.0-36. 0 L RED CELL DISTRIBUTION WIDTH (test code = RDW) 15.1 % 11.6-16. 2 N RED CELL DISTRIBUTION WIDTH SD (test code = RDW-SD) 47.6 fL 37 .0-51.0 N PLATELET COUNT (test code = PLT) 390 K/mm3 150-450 N MEAN PLATELET VOLUME (test code = MPV) 9.2 fL 6.7-11.0 N NEUTROPHIL % (test code = NT%) 84.5 % 39.0-69.0 H IMMATURE GRANULOCYTE % (test code = IG%) 1.6 % 0.0-5.0 N LYMPHOCYTE % (test code = LY%) 6.8 % 25.0-55.0 L MONOCYTE % (test code = MO%) 6.8 % 0.0-10.0 N EOSINOPHIL % (test code = EO%) 0.0 % 0.0-5.0 N BASOPHIL % (test code = BA%) 0.3 % 0.0-1.0 N NUCLEATED RBC % (test code = NRBC%) 0.0 % 0-0 N NEUTROPHIL # (test code = NT#) 8.38 K/mm3 1.8-7.7 H IMMATURE GRANULOCYTE # (test code = IG#) 0.16 x10 3/uL 0-0.03 H LYMPHOCYTE # (test code = LY#) 0.68 K/mm3 1.0-5.0 L MONOCYTE # (test code = MO#) 0.68 K/mm3 0-0.8 N EOSINOPHIL # (test code = EO#) 0.00 K/mm3 0.0-0.5 N BASOPHIL # (test code = BA#) 0.03 K/mm3 0.0-0.2 N NUCLEATED RBC # (test code = NRBC#) 0.00 K/mm3 0.0-0.1 N MANUAL DIFF REQUIRED (test code = MDIFF) NO, ONLY SCAN NEEDED DIFFERENTIAL [id number] 04:44:00* Test Item Value Reference Range Interpretation Comments STAIN ACCEPTABILITY (test code = STN ACCEPTABLE) CABOT RINGS (test code = CAB) MORPHOLOGY COMMENT (test code = MOC) PLATELET ESTIMATE (test code = PLTEST) PLATELET MORPHOLOGY (test code = PLTMORPH) CBC W/AUTO [id number] 04:44:00* Test Item Value Reference Range Interpretation Comments WHITE BLOOD CELL (test code = WBC) 9.9 K/mm3 4.5-12.5 N RED BLOOD CELL (test code = RBC) 3.17 mill/mm3 4.0-5.8 L HEMOGLOBIN (test code = HGB) 8.7 gram/dL 13.0-17.5 L HEMATOCRIT (test code = HCT) 29.3 % 42.0-52.0 L MEAN CELL VOLUME (test code = MCV) 92.4 fL 80-98 N MEAN CELL HGB (test code = MCH) 27.4 picogram 27.0-33.0 N MEAN CELL HGB CONCETRATION (test code = MCHC) 29.7 gram/dL 33.0-36. 0 L RED CELL DISTRIBUTION WIDTH (test code = RDW) 15.1 % 11.6-16. 2 N RED CELL DISTRIBUTION WIDTH SD (test code = RDW-SD) 47.6 fL 37 .0-51.0 N PLATELET COUNT (test code = PLT) 390 K/mm3 150-450 N MEAN PLATELET VOLUME (test code = MPV) 9.2 fL 6.7-11.0 N NEUTROPHIL % (test code = NT%) 84.5 % 39.0-69.0 H IMMATURE GRANULOCYTE % (test code = IG%) 1.6 % 0.0-5.0 N LYMPHOCYTE % (test code = LY%) 6.8 % 25.0-55.0 L MONOCYTE % (test code = MO%) 6.8 % 0.0-10.0 N EOSINOPHIL % (test code = EO%) 0.0 % 0.0-5.0 N BASOPHIL % (test code = BA%) 0.3 % 0.0-1.0 N NUCLEATED RBC % (test code = NRBC%) 0.0 % 0-0 N NEUTROPHIL # (test code = NT#) 8.38 K/mm3 1.8-7.7 H IMMATURE GRANULOCYTE # (test code = IG#) 0.16 x10 3/uL 0-0.03 H LYMPHOCYTE # (test code = LY#) 0.68 K/mm3 1.0-5.0 L MONOCYTE # (test code = MO#) 0.68 K/mm3 0-0.8 N EOSINOPHIL # (test code = EO#) 0.00 K/mm3 0.0-0.5 N BASOPHIL # (test code = BA#) 0.03 K/mm3 0.0-0.2 N NUCLEATED RBC # (test code = NRBC#) 0.00 K/mm3 0.0-0.1 N MANUAL DIFF REQUIRED (test code = MDIFF) NO, ONLY SCAN NEEDED DIFFERENTIAL [id number] 04:44:00* Test Item Value Reference Range Interpretation Comments STAIN ACCEPTABILITY (test code = STN ACCEPTABLE) CABOT RINGS (test code = CAB) MORPHOLOGY COMMENT (test code = MOC) PLATELET ESTIMATE (test code = PLTEST) PLATELET MORPHOLOGY (test code = PLTMORPH) CBC W/AUTO [id number] 04:44:00* Test Item Value Reference Range Interpretation Comments WHITE BLOOD CELL (test code = WBC) 9.9 K/mm3 4.5-12.5 N RED BLOOD CELL (test code = RBC) 3.17 mill/mm3 4.0-5.8 L HEMOGLOBIN (test code = HGB) 8.7 gram/dL 13.0-17.5 L HEMATOCRIT (test code = HCT) 29.3 % 42.0-52.0 L MEAN CELL VOLUME (test code = MCV) 92.4 fL 80-98 N MEAN CELL HGB (test code = MCH) 27.4 picogram 27.0-33.0 N MEAN CELL HGB CONCETRATION (test code = MCHC) 29.7 gram/dL 33.0-36. 0 L RED CELL DISTRIBUTION WIDTH (test code = RDW) 15.1 % 11.6-16. 2 N RED CELL DISTRIBUTION WIDTH SD (test code = RDW-SD) 47.6 fL 37 .0-51.0 N PLATELET COUNT (test code = PLT) 390 K/mm3 150-450 N MEAN PLATELET VOLUME (test code = MPV) 9.2 fL 6.7-11.0 N NEUTROPHIL % (test code = NT%) 84.5 % 39.0-69.0 H IMMATURE GRANULOCYTE % (test code = IG%) 1.6 % 0.0-5.0 N LYMPHOCYTE % (test code = LY%) 6.8 % 25.0-55.0 L MONOCYTE % (test code = MO%) 6.8 % 0.0-10.0 N EOSINOPHIL % (test code = EO%) 0.0 % 0.0-5.0 N BASOPHIL % (test code = BA%) 0.3 % 0.0-1.0 N NUCLEATED RBC % (test code = NRBC%) 0.0 % 0-0 N NEUTROPHIL # (test code = NT#) 8.38 K/mm3 1.8-7.7 H IMMATURE GRANULOCYTE # (test code = IG#) 0.16 x10 3/uL 0-0.03 H LYMPHOCYTE # (test code = LY#) 0.68 K/mm3 1.0-5.0 L MONOCYTE # (test code = MO#) 0.68 K/mm3 0-0.8 N EOSINOPHIL # (test code = EO#) 0.00 K/mm3 0.0-0.5 N BASOPHIL # (test code = BA#) 0.03 K/mm3 0.0-0.2 N NUCLEATED RBC # (test code = NRBC#) 0.00 K/mm3 0.0-0.1 N MANUAL DIFF REQUIRED (test code = MDIFF) NO, ONLY SCAN NEEDED DIFFERENTIAL [id number] 04:44:00* Test Item Value Reference Range Interpretation Comments STAIN ACCEPTABILITY (test code = STN ACCEPTABLE) MORPHOLOGY COMMENT (test code = MOC) PLATELET ESTIMATE (test code = PLTEST) PLATELET MORPHOLOGY (test code = PLTMORPH) CBC W/AUTO [id number] 04:44:00* Test Item Value Reference Range Interpretation Comments WHITE BLOOD CELL (test code = WBC) 9.9 K/mm3 4.5-12.5 N RED BLOOD CELL (test code = RBC) 3.17 mill/mm3 4.0-5.8 L HEMOGLOBIN (test code = HGB) 8.7 gram/dL 13.0-17.5 L HEMATOCRIT (test code = HCT) 29.3 % 42.0-52.0 L MEAN CELL VOLUME (test code = MCV) 92.4 fL 80-98 N MEAN CELL HGB (test code = MCH) 27.4 picogram 27.0-33.0 N MEAN CELL HGB CONCETRATION (test code = MCHC) 29.7 gram/dL 33.0-36. 0 L RED CELL DISTRIBUTION WIDTH (test code = RDW) 15.1 % 11.6-16. 2 N RED CELL DISTRIBUTION WIDTH SD (test code = RDW-SD) 47.6 fL 37 .0-51.0 N PLATELET COUNT (test code = PLT) 390 K/mm3 150-450 N MEAN PLATELET VOLUME (test code = MPV) 9.2 fL 6.7-11.0 N NEUTROPHIL % (test code = NT%) 84.5 % 39.0-69.0 H IMMATURE GRANULOCYTE % (test code = IG%) 1.6 % 0.0-5.0 N LYMPHOCYTE % (test code = LY%) 6.8 % 25.0-55.0 L MONOCYTE % (test code = MO%) 6.8 % 0.0-10.0 N EOSINOPHIL % (test code = EO%) 0.0 % 0.0-5.0 N BASOPHIL % (test code = BA%) 0.3 % 0.0-1.0 N NUCLEATED RBC % (test code = NRBC%) 0.0 % 0-0 N NEUTROPHIL # (test code = NT#) 8.38 K/mm3 1.8-7.7 H IMMATURE GRANULOCYTE # (test code = IG#) 0.16 x10 3/uL 0-0.03 H LYMPHOCYTE # (test code = LY#) 0.68 K/mm3 1.0-5.0 L MONOCYTE # (test code = MO#) 0.68 K/mm3 0-0.8 N EOSINOPHIL # (test code = EO#) 0.00 K/mm3 0.0-0.5 N BASOPHIL # (test code = BA#) 0.03 K/mm3 0.0-0.2 N NUCLEATED RBC # (test code = NRBC#) 0.00 K/mm3 0.0-0.1 N MANUAL DIFF REQUIRED (test code = MDIFF) NO, ONLY SCAN NEEDED DIFFERENTIAL [id number] 04:44:00* Test Item Value Reference Range Interpretation Comments STAIN ACCEPTABILITY (test code = STN ACCEPTABLE) CABOT RINGS (test code = CAB) MORPHOLOGY COMMENT (test code = MOC) PLATELET ESTIMATE (test code = PLTEST) PLATELET MORPHOLOGY (test code = PLTMORPH) [id number] 00:08:00* Test Item Value Reference Range Interpretation Comments GLUBED (test code = GLUBED) 139 mg/dL 74-106 H Performed by certified photogravure press operator at [facility] [id number] 21:12:00* Test Item Value Reference Range Interpretation Comments GLUBED (test code = GLUBED) 138 mg/dL 74-106 H Performed by certified photogravure press operator at [facility] [id number] 17:40:00* Test Item Value Reference Range Interpretation Comments GLUBED (test code = GLUBED) 133 mg/dL 74-106 H Performed by certified photogravure press operator at [facility] BASIC METABOLIC [id number] 13:20:00* Test Item Value Reference Range Interpretation Comments SODIUM (test code = NA) 141 mmol/L 136-145 N POTASSIUM (test code = K) 3.7 mmol/L 3.5-5.1 N CHLORIDE (test code = CL) 107.0 mmol/L 98-107 N CARBON DIOXIDE (test code = CO2) 23.0 mmol/L 21-32 N ANION GAP (test code = GAP) 14.7 10-20 N GLUCOSE (test code = GLU) 138 mg/dL 74-106 H BLOOD UREA NITROGEN (test code = BUN) 26 mg/dL 7-18 H GLOMERULAR FILTRATION RATE (test code = GFR) 11 mL/min >=60 Estimated GFR by using Modified MDRD formula.Chronic kidney disease is defined as either kidney damageor GFR <60 mL/min/1.73 m2 for >3 months. CREATININE (test code = CREAT) 5.00 mg/dL 0.7-1.3 H BUN/CREATININE RATIO (test code = BUN/CREA) 5.2 10-20 L CALCIUM (test code = CA) 8.2 mg/dL 8.5-10.1 L BASIC METABOLIC [id number] 13:17:00* Test Item Value Reference Range Interpretation Comments SODIUM (test code = NA) 141 mmol/L 136-145 N POTASSIUM (test code = K) 3.7 mmol/L 3.5-5.1 N CHLORIDE (test code = CL) 107.0 mmol/L 98-107 N CARBON DIOXIDE (test code = CO2) mmol/L 21-32 ANION GAP (test code = GAP) 10-20 GLUCOSE (test code = GLU) mg/dL 74-106 BLOOD UREA NITROGEN (test code = BUN) mg/dL 7-18 GLOMERULAR FILTRATION RATE (test code = GFR) mL/min >=60 CREATININE (test code = CREAT) mg/dL 0.7-1.3 BUN/CREATININE RATIO (test code = BUN/CREA) 10-20 CALCIUM (test code = CA) mg/dL 8.5-10.1 [id number] 12:37:00* Test Item Value Reference Range Interpretation Comments GLUBED (test code = GLUBED) 127 mg/dL 74-106 H Performed by certified photogravure press operator at [facility] [id number] 16:37:00* Test Item Value Reference Range Interpretation Comments GLUBED (test code = GLUBED) 218 mg/dL 74-106 H Performed by certified photogravure press operator at [facility] ANTINUCLEAR ANTIBODIES [id number] 11:11:00* Test Item Value Reference Range Interpretation Comments ZEYAD SCREEN (test code = ANASCR) Negative Negative Performed At: [facility] [address] [id number] Savage MD Ph:[phone] COMPLEMENT [id number] 11:11:00* Test Item Value Reference Range Interpretation Comments COMPLEMENT C3 (test code = COMC3) 141 mg/dL 82-167 Performed At: [facility] [address] [id number] Savage MD Ph:[phone] COMPLEMENT [id number] 11:11:00* Test Item Value Reference Range Interpretation Comments COMPLEMENT C4 (test code = COMC4) 31 mg/dL 14-44 CBC W/AUTO [id number] 10:09:00* Test Item Value Reference Range Interpretation Comments WHITE BLOOD CELL (test code = WBC) 9.8 K/mm3 4.5-12.5 N RED BLOOD CELL (test code = RBC) 3.22 mill/mm3 4.0-5.8 L HEMOGLOBIN (test code = HGB) 8.7 gram/dL 13.0-17.5 L HEMATOCRIT (test code = HCT) 30.7 % 42.0-52.0 L MEAN CELL VOLUME (test code = MCV) 95.3 fL 80-98 N MEAN CELL HGB (test code = MCH) 27.0 picogram 27.0-33.0 N MEAN CELL HGB CONCETRATION (test code = MCHC) 28.3 gram/dL 33.0-36. 0 L RED CELL DISTRIBUTION WIDTH (test code = RDW) 14.1 % 11.6-16. 2 N RED CELL DISTRIBUTION WIDTH SD (test code = RDW-SD) 46.7 fL 37 .0-51.0 N PLATELET COUNT (test code = PLT) 386 K/mm3 150-450 N MEAN PLATELET VOLUME (test code = MPV) 9.7 fL 6.7-11.0 N NEUTROPHIL % (test code = NT%) 85.7 % 39.0-69.0 H IMMATURE GRANULOCYTE % (test code = IG%) 2.0 % 0.0-5.0 N LYMPHOCYTE % (test code = LY%) 5.1 % 25.0-55.0 L MONOCYTE % (test code = MO%) 6.7 % 0.0-10.0 N EOSINOPHIL % (test code = EO%) 0.1 % 0.0-5.0 N BASOPHIL % (test code = BA%) 0.4 % 0.0-1.0 N NUCLEATED RBC % (test code = NRBC%) 0.0 % 0-0 N NEUTROPHIL # (test code = NT#) 8.43 K/mm3 1.8-7.7 H IMMATURE GRANULOCYTE # (test code = IG#) 0.20 x10 3/uL 0-0.03 H LYMPHOCYTE # (test code = LY#) 0.50 K/mm3 1.0-5.0 L MONOCYTE # (test code = MO#) 0.66 K/mm3 0-0.8 N EOSINOPHIL # (test code = EO#) 0.01 K/mm3 0.0-0.5 N BASOPHIL # (test code = BA#) 0.04 K/mm3 0.0-0.2 N NUCLEATED RBC # (test code = NRBC#) 0.00 K/mm3 0.0-0.1 N MANUAL DIFF REQUIRED (test code = MDIFF) NO, ONLY SCAN NEEDED DIFFERENTIAL [id number] 10:09:00* Test Item Value Reference Range Interpretation Comments STAIN ACCEPTABILITY (test code = STN ACCEPTABLE) STAIN ACCEPTABLE POLYCHROMASIA (test code = POLC) 1+ HYPOCHROMIA (test code = HYPO) 1+ ANISOCYTOSIS (test code = ANISO) 1+ PLATELET ESTIMATE (test code = PLTEST) ADEQUATE PLATELET MORPHOLOGY (test code = PLTMORPH) NORMAL [id number] 09:31:00* Test Item Value Reference Range Interpretation Comments VANCOMYCIN (test code = VANCO) 25.0 UG/ML 5.0-45.0 N BASIC METABOLIC [id number] 09:20:00* Test Item Value Reference Range Interpretation Comments SODIUM (test code = NA) 139 mmol/L 136-145 N POTASSIUM (test code = K) 4.0 mmol/L 3.5-5.1 N CHLORIDE (test code = CL) 105.0 mmol/L 98-107 N CARBON DIOXIDE (test code = CO2) 21.0 mmol/L 21-32 N ANION GAP (test code = GAP) 17.0 10-20 N GLUCOSE (test code = GLU) 178 mg/dL 74-106 H BLOOD UREA NITROGEN (test code = BUN) 33 mg/dL 7-18 H GLOMERULAR FILTRATION RATE (test code = GFR) 11 mL/min >=60 Estimated GFR by using Modified MDRD formula.Chronic kidney disease is defined as either kidney damageor GFR <60 mL/min/1.73 m2 for >3 months. CREATININE (test code = CREAT) 5.30 mg/dL 0.7-1.3 H BUN/CREATININE RATIO (test code = BUN/CREA) 6.2 10-20 L CALCIUM (test code = CA) 8.1 mg/dL 8.5-10.1 L BASIC METABOLIC [id number] 09:18:00* Test Item Value Reference Range Interpretation Comments SODIUM (test code = NA) 139 mmol/L 136-145 N POTASSIUM (test code = K) 4.0 mmol/L 3.5-5.1 N CHLORIDE (test code = CL) 105.0 mmol/L 98-107 N CARBON DIOXIDE (test code = CO2) mmol/L 21-32 ANION GAP (test code = GAP) 10-20 GLUCOSE (test code = GLU) mg/dL 74-106 BLOOD UREA NITROGEN (test code = BUN) mg/dL 7-18 GLOMERULAR FILTRATION RATE (test code = GFR) mL/min >=60 CREATININE (test code = CREAT) mg/dL 0.7-1.3 BUN/CREATININE RATIO (test code = BUN/CREA) 10-20 CALCIUM (test code = CA) mg/dL 8.5-10.1 CBC W/AUTO [id number] 08:53:00* Test Item Value Reference Range Interpretation Comments WHITE BLOOD CELL (test code = WBC) 9.8 K/mm3 4.5-12.5 N RED BLOOD CELL (test code = RBC) 3.22 mill/mm3 4.0-5.8 L HEMOGLOBIN (test code = HGB) 8.7 gram/dL 13.0-17.5 L HEMATOCRIT (test code = HCT) 30.7 % 42.0-52.0 L MEAN CELL VOLUME (test code = MCV) 95.3 fL 80-98 N MEAN CELL HGB (test code = MCH) 27.0 picogram 27.0-33.0 N MEAN CELL HGB CONCETRATION (test code = MCHC) 28.3 gram/dL 33.0-36. 0 L RED CELL DISTRIBUTION WIDTH (test code = RDW) 14.1 % 11.6-16. 2 N RED CELL DISTRIBUTION WIDTH SD (test code = RDW-SD) 46.7 fL 37 .0-51.0 N PLATELET COUNT (test code = PLT) 386 K/mm3 150-450 N MEAN PLATELET VOLUME (test code = MPV) 9.7 fL 6.7-11.0 N NEUTROPHIL % (test code = NT%) 85.7 % 39.0-69.0 H IMMATURE GRANULOCYTE % (test code = IG%) 2.0 % 0.0-5.0 N LYMPHOCYTE % (test code = LY%) 5.1 % 25.0-55.0 L MONOCYTE % (test code = MO%) 6.7 % 0.0-10.0 N EOSINOPHIL % (test code = EO%) 0.1 % 0.0-5.0 N BASOPHIL % (test code = BA%) 0.4 % 0.0-1.0 N NUCLEATED RBC % (test code = NRBC%) 0.0 % 0-0 N NEUTROPHIL # (test code = NT#) 8.43 K/mm3 1.8-7.7 H IMMATURE GRANULOCYTE # (test code = IG#) 0.20 x10 3/uL 0-0.03 H LYMPHOCYTE # (test code = LY#) 0.50 K/mm3 1.0-5.0 L MONOCYTE # (test code = MO#) 0.66 K/mm3 0-0.8 N EOSINOPHIL # (test code = EO#) 0.01 K/mm3 0.0-0.5 N BASOPHIL # (test code = BA#) 0.04 K/mm3 0.0-0.2 N NUCLEATED RBC # (test code = NRBC#) 0.00 K/mm3 0.0-0.1 N MANUAL DIFF REQUIRED (test code = MDIFF) NO, ONLY SCAN NEEDED DIFFERENTIAL [id number] 08:53:00* Test Item Value Reference Range Interpretation Comments STAIN ACCEPTABILITY (test code = STN ACCEPTABLE) CABOT RINGS (test code = CAB) MORPHOLOGY COMMENT (test code = MOC) PLATELET ESTIMATE (test code = PLTEST) PLATELET MORPHOLOGY (test code = PLTMORPH) CBC W/AUTO [id number] 08:53:00* Test Item Value Reference Range Interpretation Comments WHITE BLOOD CELL (test code = WBC) 9.8 K/mm3 4.5-12.5 N RED BLOOD CELL (test code = RBC) 3.22 mill/mm3 4.0-5.8 L HEMOGLOBIN (test code = HGB) 8.7 gram/dL 13.0-17.5 L HEMATOCRIT (test code = HCT) 30.7 % 42.0-52.0 L MEAN CELL VOLUME (test code = MCV) 95.3 fL 80-98 N MEAN CELL HGB (test code = MCH) 27.0 picogram 27.0-33.0 N MEAN CELL HGB CONCETRATION (test code = MCHC) 28.3 gram/dL 33.0-36. 0 L RED CELL DISTRIBUTION WIDTH (test code = RDW) 14.1 % 11.6-16. 2 N RED CELL DISTRIBUTION WIDTH SD (test code = RDW-SD) 46.7 fL 37 .0-51.0 N PLATELET COUNT (test code = PLT) 386 K/mm3 150-450 N MEAN PLATELET VOLUME (test code = MPV) 9.7 fL 6.7-11.0 N NEUTROPHIL % (test code = NT%) 85.7 % 39.0-69.0 H IMMATURE GRANULOCYTE % (test code = IG%) 2.0 % 0.0-5.0 N LYMPHOCYTE % (test code = LY%) 5.1 % 25.0-55.0 L MONOCYTE % (test code = MO%) 6.7 % 0.0-10.0 N EOSINOPHIL % (test code = EO%) 0.1 % 0.0-5.0 N BASOPHIL % (test code = BA%) 0.4 % 0.0-1.0 N NUCLEATED RBC % (test code = NRBC%) 0.0 % 0-0 N NEUTROPHIL # (test code = NT#) 8.43 K/mm3 1.8-7.7 H IMMATURE GRANULOCYTE # (test code = IG#) 0.20 x10 3/uL 0-0.03 H LYMPHOCYTE # (test code = LY#) 0.50 K/mm3 1.0-5.0 L MONOCYTE # (test code = MO#) 0.66 K/mm3 0-0.8 N EOSINOPHIL # (test code = EO#) 0.01 K/mm3 0.0-0.5 N BASOPHIL # (test code = BA#) 0.04 K/mm3 0.0-0.2 N NUCLEATED RBC # (test code = NRBC#) 0.00 K/mm3 0.0-0.1 N MANUAL DIFF REQUIRED (test code = MDIFF) NO, ONLY SCAN NEEDED DIFFERENTIAL [id number] 08:53:00* Test Item Value Reference Range Interpretation Comments STAIN ACCEPTABILITY (test code = STN ACCEPTABLE) CABOT RINGS (test code = CAB) MORPHOLOGY COMMENT (test code = MOC) PLATELET ESTIMATE (test code = PLTEST) PLATELET MORPHOLOGY (test code = PLTMORPH) CBC W/AUTO [id number] 08:53:00* Test Item Value Reference Range Interpretation Comments WHITE BLOOD CELL (test code = WBC) 9.8 K/mm3 4.5-12.5 N RED BLOOD CELL (test code = RBC) 3.22 mill/mm3 4.0-5.8 L HEMOGLOBIN (test code = HGB) 8.7 gram/dL 13.0-17.5 L HEMATOCRIT (test code = HCT) 30.7 % 42.0-52.0 L MEAN CELL VOLUME (test code = MCV) 95.3 fL 80-98 N MEAN CELL HGB (test code = MCH) 27.0 picogram 27.0-33.0 N MEAN CELL HGB CONCETRATION (test code = MCHC) 28.3 gram/dL 33.0-36. 0 L RED CELL DISTRIBUTION WIDTH (test code = RDW) 14.1 % 11.6-16. 2 N RED CELL DISTRIBUTION WIDTH SD (test code = RDW-SD) 46.7 fL 37 .0-51.0 N PLATELET COUNT (test code = PLT) 386 K/mm3 150-450 N MEAN PLATELET VOLUME (test code = MPV) 9.7 fL 6.7-11.0 N NEUTROPHIL % (test code = NT%) 85.7 % 39.0-69.0 H IMMATURE GRANULOCYTE % (test code = IG%) 2.0 % 0.0-5.0 N LYMPHOCYTE % (test code = LY%) 5.1 % 25.0-55.0 L MONOCYTE % (test code = MO%) 6.7 % 0.0-10.0 N EOSINOPHIL % (test code = EO%) 0.1 % 0.0-5.0 N BASOPHIL % (test code = BA%) 0.4 % 0.0-1.0 N NUCLEATED RBC % (test code = NRBC%) 0.0 % 0-0 N NEUTROPHIL # (test code = NT#) 8.43 K/mm3 1.8-7.7 H IMMATURE GRANULOCYTE # (test code = IG#) 0.20 x10 3/uL 0-0.03 H LYMPHOCYTE # (test code = LY#) 0.50 K/mm3 1.0-5.0 L MONOCYTE # (test code = MO#) 0.66 K/mm3 0-0.8 N EOSINOPHIL # (test code = EO#) 0.01 K/mm3 0.0-0.5 N BASOPHIL # (test code = BA#) 0.04 K/mm3 0.0-0.2 N NUCLEATED RBC # (test code = NRBC#) 0.00 K/mm3 0.0-0.1 N MANUAL DIFF REQUIRED (test code = MDIFF) NO, ONLY SCAN NEEDED DIFFERENTIAL [id number] 08:53:00* Test Item Value Reference Range Interpretation Comments STAIN ACCEPTABILITY (test code = STN ACCEPTABLE) MORPHOLOGY COMMENT (test code = MOC) PLATELET ESTIMATE (test code = PLTEST) PLATELET MORPHOLOGY (test code = PLTMORPH) CBC W/AUTO [id number] 08:53:00* Test Item Value Reference Range Interpretation Comments WHITE BLOOD CELL (test code = WBC) 9.8 K/mm3 4.5-12.5 N RED BLOOD CELL (test code = RBC) 3.22 mill/mm3 4.0-5.8 L HEMOGLOBIN (test code = HGB) 8.7 gram/dL 13.0-17.5 L HEMATOCRIT (test code = HCT) 30.7 % 42.0-52.0 L MEAN CELL VOLUME (test code = MCV) 95.3 fL 80-98 N MEAN CELL HGB (test code = MCH) 27.0 picogram 27.0-33.0 N MEAN CELL HGB CONCETRATION (test code = MCHC) 28.3 gram/dL 33.0-36. 0 L RED CELL DISTRIBUTION WIDTH (test code = RDW) 14.1 % 11.6-16. 2 N RED CELL DISTRIBUTION WIDTH SD (test code = RDW-SD) 46.7 fL 37 .0-51.0 N PLATELET COUNT (test code = PLT) 386 K/mm3 150-450 N MEAN PLATELET VOLUME (test code = MPV) 9.7 fL 6.7-11.0 N NEUTROPHIL % (test code = NT%) 85.7 % 39.0-69.0 H IMMATURE GRANULOCYTE % (test code = IG%) 2.0 % 0.0-5.0 N LYMPHOCYTE % (test code = LY%) 5.1 % 25.0-55.0 L MONOCYTE % (test code = MO%) 6.7 % 0.0-10.0 N EOSINOPHIL % (test code = EO%) 0.1 % 0.0-5.0 N BASOPHIL % (test code = BA%) 0.4 % 0.0-1.0 N NUCLEATED RBC % (test code = NRBC%) 0.0 % 0-0 N NEUTROPHIL # (test code = NT#) 8.43 K/mm3 1.8-7.7 H IMMATURE GRANULOCYTE # (test code = IG#) 0.20 x10 3/uL 0-0.03 H LYMPHOCYTE # (test code = LY#) 0.50 K/mm3 1.0-5.0 L MONOCYTE # (test code = MO#) 0.66 K/mm3 0-0.8 N EOSINOPHIL # (test code = EO#) 0.01 K/mm3 0.0-0.5 N BASOPHIL # (test code = BA#) 0.04 K/mm3 0.0-0.2 N NUCLEATED RBC # (test code = NRBC#) 0.00 K/mm3 0.0-0.1 N MANUAL DIFF REQUIRED (test code = MDIFF) NO, ONLY SCAN NEEDED DIFFERENTIAL [id number] 08:53:00* Test Item Value Reference Range Interpretation Comments STAIN ACCEPTABILITY (test code = STN ACCEPTABLE) CABOT RINGS (test code = CAB) MORPHOLOGY COMMENT (test code = MOC) PLATELET ESTIMATE (test code = PLTEST) PLATELET MORPHOLOGY (test code = PLTMORPH) ANTINUCLEAR ANTIBODIES [id number] 08:15:00* Test Item Value Reference Range Interpretation Comments ZEYAD SCREEN (test code = ANASCR) COMPLEMENT [id number] 08:15:00* Test Item Value Reference Range Interpretation Comments COMPLEMENT C3 (test code = COMC3) mg/dL COMPLEMENT [id number] 08:15:00* Test Item Value Reference Range Interpretation Comments COMPLEMENT C4 (test code = COMC4) 31 mg/dL 14-44 ANTINUCLEAR ANTIBODIES [id number] 08:15:00* Test Item Value Reference Range Interpretation Comments ZEYAD SCREEN (test code = ANASCR) COMPLEMENT [id number] 08:15:00* Test Item Value Reference Range Interpretation Comments COMPLEMENT C3 (test code = COMC3) 141 mg/dL 82-167 Performed At: [facility] [address] [id number] Pascual Savage MD Ph:[phone] COMPLEMENT [id number] 08:15:00* Test Item Value Reference Range Interpretation Comments COMPLEMENT C4 (test code = COMC4) 31 mg/dL 14-44 - SP FLUORO GUID CTRL ACC [id number] 07:20:00 Name: XOCHILT EPSTEINELICEO [facility] : 1940 Age/S: 77 / M [address] [facility] Unit #: [id number] Loc: [place] [address] Phys: Silvia Contreras MD Acct: [id number] Dis Date: Status: ADM IN PHONE #: [phone] Exam Date: 07/12/2018 1533 FAX #: [phone] Reason: EXAMS: CPT CODE: [id number] SP FLUORO GUID CTRL ACC DEV [id number] Fluoro Time: 6 DAP (Gy m2): 2347 Air Kerma (mGy): 4.62 REASON FOR EXAM: ESRD Referring Physician: Silvia Contreras MD PROCEDURE: Ultrasound and fluoroscopic guided tunneled hemodialysis catheter placement with IV conscious sedation CPT code: 21020, 56405,13609 Jqwj-sc-hkej procedure time is approximately: 45 minutes FINDINGS: After informed consent was obtained, the patient was brought to special procedures and placed supine on the table. The left neck and chest wall were prepped and draped in the usual fashion. All elements of maximal sterile barrier technique were followed. US shows patency of the left IJ. Images of the vein were submitted to PACS. The vein is patent and compressible. 2% local lidocaine was given for local anesthetic in the neck and chest wall. Under real time ultrasound guidance, a micropuncture needle was used to access the vein. A retirement dialysis catheter was tunneled under the subcutaneous tissue and inserted through a sheath with the tip positioned in the SVC under direct fluoroscopic guidance. The catheter was sutured to the subcutaneous tissue with prolene sutures and is ready for use. MEDICATIONS: 1mg versed, 25mcg fentanyl. COMPLICATIONS: None. Blood loss: less than 5cc Fluoroscopic time:6 sec Fluoroscopic dose:4 mGy Number of fluoroscopic images obtained: 2 IMPRESSION: left IJ tunneled hemodialysis catheter is ready for use. at 0720 Reported and signed by: Earle Alvarado M.D. CC: Silvia Contreras MD Technologist: Ernie Martinez Trngab Date/Time: 07/13/2018 (719) tÁNGEL Orig Print D/T: S: 07/13/2018 (4123) PAGE 1 Signed Report - US GUIDANCE VASC [id number] 07:20:00 Name: XOCHILT EPSTEIN [facility] : 1940 Age/S: 77 / M [address] [facility] Unit #: [id number] Loc: [place] [address] Phys: Silvia Contreras MD Acct: [id number] Dis Date: Status: ADM IN PHONE #: [phone] Exam Date: 07/12/2018 1533 FAX #: [phone] Reason: EXAMS: CPT CODE: [id number] US GUIDANCE VASC ACCESS [id number] Fluoro Time: 6 DAP (Gy m2): 2347 Air Kerma (mGy): 4.692 REASON FOR EXAM: ESRD Referring Physician: Silvia Contreras MD PROCEDURE: Ultrasound and fluoroscopic guided tunneled hemodialysis catheter placement with IV conscious sedation CPT code: 57179, 02950,61742 Fkjj-st-dsqx procedure time is approximately: 45 minutes FINDINGS: After informed consent was obtained, the patient was brought to special procedures and placed supine on the table. The left neck and chest wall were prepped and draped in the usual fashion. All elements of maximal sterile barrier technique were followed. US shows patency of the left IJ. Images of the vein were submitted to PACS. The vein is patent and compressible. 2% local lidocaine was given for local anesthetic in the neck and chest wall. Under real time ultrasound guidance, a micropuncture needle was used to access the vein. A superintendent terminal dialysis catheter was tunneled under the subcutaneous tissue and inserted through a sheath with the tip positioned in the SVC under direct fluoroscopic guidance. The catheter was sutured to the subcutaneous tissue with prolene sutures and is ready for use. MEDICATIONS: 1mg versed, 25mcg fentanyl. COMPLICATIONS: None. Blood loss: less than 5cc Fluoroscopic time:6 sec Fluoroscopic dose:4 mGy Number of fluoroscopic images obtained: 2 IMPRESSION: left IJ tunneled hemodialysis catheter is ready for use. at 0720 Reported and signed by: Earle Alvarado M.D. CC: Silvia Contreras MD Technologist[facility] Date/Time: 07/13/2018 (719) FernandoVTL Orig Print D/T: S: 07/13/2018 (722) PAGE 1 Signed Report [id number] 06:20:00* Test Item Value Reference Range Interpretation Comments GLUBED (test code = GLUBED) 182 mg/dL 74-106 H Performed by certified photogravure press operator at [facility] [id number] 01:10:00* Test Item Value Reference Range Interpretation Comments GLUBED (test code = GLUBED) 155 mg/dL 74-106 H Performed by certified photogravure press operator at [facility] [id number] 21:38:00* Test Item Value Reference Range Interpretation Comments GLUBED (test code = GLUBED) 159 mg/dL 74-106 H Performed by certified photogravure press operator at [facility] [id number] 21:37:00* Test Item Value Reference Range Interpretation Comments GLUBED (test code = GLUBED) 149 mg/dL 74-106 H Performed by certified photogravure press operator at [facility] - XR CHEST 1 [id number] 16:29:00 FAX: Silvia Payan MD [phone] [place]: St: ADM Name: XOCHILT REYNA [facility] : 11/21/18 41 Age/S: 77/M [address] [facility] Unit #: [id number] Loc: V.7 [place] [address] Phys: Earle Alvarado MD Acct: [id number] Dis Date: Status: ADM IN PHONE #: [phone] Exam Date: 07/12/2018 1610 FAX #: [phone] Reason: POST LINE PLACMENT EXAMS: CPT CODE: [id number] XR CHEST 1 V 01316 EXAM: Chest x-ray, one view; INFORMATION: Sepsis; renal failure, post line placement; IMPRESSION: 1. The tip of a left IJ temporary hemodialysis catheter is positioned at the SVC/right atrial junction. 2. No evidence of a pneumothorax. 3. Increasing densities in the left lower lobe, which is probably a combination of edema and atelectatic changes. 4. No further changes compared with yesterday's study. Electronic ally Signed by David Liao on 07/12/2018 at 4070 Reported and signed by: Guille santiago M.D. CC: Silvia Contreras MD Technologist: ALEXANDRA ROSALES RT(R) Trnscrd Date/Time/By: 07/12/2018 (582) : By: Ty Orig Print D/T: S: 07/12/2018 (5694) PAGE 1 Signed Report AG HEPAT B [id number] 11:59:00* Test Item Value Reference Range Interpretation Comments AG HEPAT B SURF (test code = HBSAG) Nonreactive Index Nonreactive CBC W/AUTO [id number] 07:53:00* Test Item Value Reference Range Interpretation Comments WHITE BLOOD CELL (test code = WBC) 8.3 K/mm3 4.5-12.5 N RED BLOOD CELL (test code = RBC) 2.99 mill/mm3 4.0-5.8 L HEMOGLOBIN (test code = HGB) 8.4 gram/dL 13.0-17.5 L HEMATOCRIT (test code = HCT) 28.7 % 42.0-52.0 L MEAN CELL VOLUME (test code = MCV) 96.0 fL 80-98 N MEAN CELL HGB (test code = MCH) 28.1 picogram 27.0-33.0 N MEAN CELL HGB CONCETRATION (test code = MCHC) 29.3 gram/dL 33.0-36. 0 L RED CELL DISTRIBUTION WIDTH (test code = RDW) 13.9 % 11.6-16. 2 N RED CELL DISTRIBUTION WIDTH SD (test code = RDW-SD) 47.1 fL 37 .0-51.0 N PLATELET COUNT (test code = PLT) 343 K/mm3 150-450 N MEAN PLATELET VOLUME (test code = MPV) 9.7 fL 6.7-11.0 N NEUTROPHIL % (test code = NT%) 79.2 % 39.0-69.0 H IMMATURE GRANULOCYTE % (test code = IG%) 1.6 % 0.0-5.0 N LYMPHOCYTE % (test code = LY%) 10.6 % 25.0-55.0 L MONOCYTE % (test code = MO%) 7.6 % 0.0-10.0 N EOSINOPHIL % (test code = EO%) 0.4 % 0.0-5.0 N BASOPHIL % (test code = BA%) 0.6 % 0.0-1.0 N NUCLEATED RBC % (test code = NRBC%) 0.0 % 0-0 N NEUTROPHIL # (test code = NT#) 6.57 K/mm3 1.8-7.7 N IMMATURE GRANULOCYTE # (test code = IG#) 0.13 x10 3/uL 0-0.03 H LYMPHOCYTE # (test code = LY#) 0.88 K/mm3 1.0-5.0 L MONOCYTE # (test code = MO#) 0.63 K/mm3 0-0.8 N EOSINOPHIL # (test code = EO#) 0.03 K/mm3 0.0-0.5 N BASOPHIL # (test code = BA#) 0.05 K/mm3 0.0-0.2 N NUCLEATED RBC # (test code = NRBC#) 0.00 K/mm3 0.0-0.1 N MANUAL DIFF REQUIRED (test code = MDIFF) NO, ONLY SCAN NEEDED DIFFERENTIAL [id number] 07:53:00* Test Item Value Reference Range Interpretation Comments STAIN ACCEPTABILITY (test code = STN ACCEPTABLE) STAIN ACCEPTABLE MORPHOLOGY COMMENT (test code = MOC) NORMAL PLATELET ESTIMATE (test code = PLTEST) ADEQUATE PLATELET MORPHOLOGY (test code = PLTMORPH) NORMAL CBC W/AUTO [id number] 06:58:00* Test Item Value Reference Range Interpretation Comments WHITE BLOOD CELL (test code = WBC) 8.3 K/mm3 4.5-12.5 N RED BLOOD CELL (test code = RBC) 2.99 mill/mm3 4.0-5.8 L HEMOGLOBIN (test code = HGB) 8.4 gram/dL 13.0-17.5 L HEMATOCRIT (test code = HCT) 28.7 % 42.0-52.0 L MEAN CELL VOLUME (test code = MCV) 96.0 fL 80-98 N MEAN CELL HGB (test code = MCH) 28.1 picogram 27.0-33.0 N MEAN CELL HGB CONCETRATION (test code = MCHC) 29.3 gram/dL 33.0-36. 0 L RED CELL DISTRIBUTION WIDTH (test code = RDW) 13.9 % 11.6-16. 2 N RED CELL DISTRIBUTION WIDTH SD (test code = RDW-SD) 47.1 fL 37 .0-51.0 N PLATELET COUNT (test code = PLT) 343 K/mm3 150-450 N MEAN PLATELET VOLUME (test code = MPV) 9.7 fL 6.7-11.0 N NEUTROPHIL % (test code = NT%) 79.2 % 39.0-69.0 H IMMATURE GRANULOCYTE % (test code = IG%) 1.6 % 0.0-5.0 N LYMPHOCYTE % (test code = LY%) 10.6 % 25.0-55.0 L MONOCYTE % (test code = MO%) 7.6 % 0.0-10.0 N EOSINOPHIL % (test code = EO%) 0.4 % 0.0-5.0 N BASOPHIL % (test code = BA%) 0.6 % 0.0-1.0 N NUCLEATED RBC % (test code = NRBC%) 0.0 % 0-0 N NEUTROPHIL # (test code = NT#) 6.57 K/mm3 1.8-7.7 N IMMATURE GRANULOCYTE # (test code = IG#) 0.13 x10 3/uL 0-0.03 H LYMPHOCYTE # (test code = LY#) 0.88 K/mm3 1.0-5.0 L MONOCYTE # (test code = MO#) 0.63 K/mm3 0-0.8 N EOSINOPHIL # (test code = EO#) 0.03 K/mm3 0.0-0.5 N BASOPHIL # (test code = BA#) 0.05 K/mm3 0.0-0.2 N NUCLEATED RBC # (test code = NRBC#) 0.00 K/mm3 0.0-0.1 N MANUAL DIFF REQUIRED (test code = MDIFF) NO, ONLY SCAN NEEDED DIFFERENTIAL [id number] 06:58:00* Test Item Value Reference Range Interpretation Comments STAIN ACCEPTABILITY (test code = STN ACCEPTABLE) CABOT RINGS (test code = CAB) MORPHOLOGY COMMENT (test code = MOC) PLATELET ESTIMATE (test code = PLTEST) PLATELET MORPHOLOGY (test code = PLTMORPH) CBC W/AUTO [id number] 06:58:00* Test Item Value Reference Range Interpretation Comments WHITE BLOOD CELL (test code = WBC) 8.3 K/mm3 4.5-12.5 N RED BLOOD CELL (test code = RBC) 2.99 mill/mm3 4.0-5.8 L HEMOGLOBIN (test code = HGB) 8.4 gram/dL 13.0-17.5 L HEMATOCRIT (test code = HCT) 28.7 % 42.0-52.0 L MEAN CELL VOLUME (test code = MCV) 96.0 fL 80-98 N MEAN CELL HGB (test code = MCH) 28.1 picogram 27.0-33.0 N MEAN CELL HGB CONCETRATION (test code = MCHC) 29.3 gram/dL 33.0-36. 0 L RED CELL DISTRIBUTION WIDTH (test code = RDW) 13.9 % 11.6-16. 2 N RED CELL DISTRIBUTION WIDTH SD (test code = RDW-SD) 47.1 fL 37 .0-51.0 N PLATELET COUNT (test code = PLT) 343 K/mm3 150-450 N MEAN PLATELET VOLUME (test code = MPV) 9.7 fL 6.7-11.0 N NEUTROPHIL % (test code = NT%) 79.2 % 39.0-69.0 H IMMATURE GRANULOCYTE % (test code = IG%) 1.6 % 0.0-5.0 N LYMPHOCYTE % (test code = LY%) 10.6 % 25.0-55.0 L MONOCYTE % (test code = MO%) 7.6 % 0.0-10.0 N EOSINOPHIL % (test code = EO%) 0.4 % 0.0-5.0 N BASOPHIL % (test code = BA%) 0.6 % 0.0-1.0 N NUCLEATED RBC % (test code = NRBC%) 0.0 % 0-0 N NEUTROPHIL # (test code = NT#) 6.57 K/mm3 1.8-7.7 N IMMATURE GRANULOCYTE # (test code = IG#) 0.13 x10 3/uL 0-0.03 H LYMPHOCYTE # (test code = LY#) 0.88 K/mm3 1.0-5.0 L MONOCYTE # (test code = MO#) 0.63 K/mm3 0-0.8 N EOSINOPHIL # (test code = EO#) 0.03 K/mm3 0.0-0.5 N BASOPHIL # (test code = BA#) 0.05 K/mm3 0.0-0.2 N NUCLEATED RBC # (test code = NRBC#) 0.00 K/mm3 0.0-0.1 N MANUAL DIFF REQUIRED (test code = MDIFF) NO, ONLY SCAN NEEDED DIFFERENTIAL [id number] 06:58:00* Test Item Value Reference Range Interpretation Comments STAIN ACCEPTABILITY (test code = STN ACCEPTABLE) CABOT RINGS (test code = CAB) MORPHOLOGY COMMENT (test code = MOC) PLATELET ESTIMATE (test code = PLTEST) PLATELET MORPHOLOGY (test code = PLTMORPH) CBC W/AUTO [id number] 06:58:00* Test Item Value Reference Range Interpretation Comments WHITE BLOOD CELL (test code = WBC) 8.3 K/mm3 4.5-12.5 N RED BLOOD CELL (test code = RBC) 2.99 mill/mm3 4.0-5.8 L HEMOGLOBIN (test code = HGB) 8.4 gram/dL 13.0-17.5 L HEMATOCRIT (test code = HCT) 28.7 % 42.0-52.0 L MEAN CELL VOLUME (test code = MCV) 96.0 fL 80-98 N MEAN CELL HGB (test code = MCH) 28.1 picogram 27.0-33.0 N MEAN CELL HGB CONCETRATION (test code = MCHC) 29.3 gram/dL 33.0-36. 0 L RED CELL DISTRIBUTION WIDTH (test code = RDW) 13.9 % 11.6-16. 2 N RED CELL DISTRIBUTION WIDTH SD (test code = RDW-SD) 47.1 fL 37 .0-51.0 N PLATELET COUNT (test code = PLT) 343 K/mm3 150-450 N MEAN PLATELET VOLUME (test code = MPV) 9.7 fL 6.7-11.0 N NEUTROPHIL % (test code = NT%) 79.2 % 39.0-69.0 H IMMATURE GRANULOCYTE % (test code = IG%) 1.6 % 0.0-5.0 N LYMPHOCYTE % (test code = LY%) 10.6 % 25.0-55.0 L MONOCYTE % (test code = MO%) 7.6 % 0.0-10.0 N EOSINOPHIL % (test code = EO%) 0.4 % 0.0-5.0 N BASOPHIL % (test code = BA%) 0.6 % 0.0-1.0 N NUCLEATED RBC % (test code = NRBC%) 0.0 % 0-0 N NEUTROPHIL # (test code = NT#) 6.57 K/mm3 1.8-7.7 N IMMATURE GRANULOCYTE # (test code = IG#) 0.13 x10 3/uL 0-0.03 H LYMPHOCYTE # (test code = LY#) 0.88 K/mm3 1.0-5.0 L MONOCYTE # (test code = MO#) 0.63 K/mm3 0-0.8 N EOSINOPHIL # (test code = EO#) 0.03 K/mm3 0.0-0.5 N BASOPHIL # (test code = BA#) 0.05 K/mm3 0.0-0.2 N NUCLEATED RBC # (test code = NRBC#) 0.00 K/mm3 0.0-0.1 N MANUAL DIFF REQUIRED (test code = MDIFF) NO, ONLY SCAN NEEDED DIFFERENTIAL [id number] 06:58:00* Test Item Value Reference Range Interpretation Comments STAIN ACCEPTABILITY (test code = STN ACCEPTABLE) MORPHOLOGY COMMENT (test code = MOC) PLATELET ESTIMATE (test code = PLTEST) PLATELET MORPHOLOGY (test code = PLTMORPH) CBC W/AUTO [id number] 06:58:00* Test Item Value Reference Range Interpretation Comments WHITE BLOOD CELL (test code = WBC) 8.3 K/mm3 4.5-12.5 N RED BLOOD CELL (test code = RBC) 2.99 mill/mm3 4.0-5.8 L HEMOGLOBIN (test code = HGB) 8.4 gram/dL 13.0-17.5 L HEMATOCRIT (test code = HCT) 28.7 % 42.0-52.0 L MEAN CELL VOLUME (test code = MCV) 96.0 fL 80-98 N MEAN CELL HGB (test code = MCH) 28.1 picogram 27.0-33.0 N MEAN CELL HGB CONCETRATION (test code = MCHC) 29.3 gram/dL 33.0-36. 0 L RED CELL DISTRIBUTION WIDTH (test code = RDW) 13.9 % 11.6-16. 2 N RED CELL DISTRIBUTION WIDTH SD (test code = RDW-SD) 47.1 fL 37 .0-51.0 N PLATELET COUNT (test code = PLT) 343 K/mm3 150-450 N MEAN PLATELET VOLUME (test code = MPV) 9.7 fL 6.7-11.0 N NEUTROPHIL % (test code = NT%) 79.2 % 39.0-69.0 H IMMATURE GRANULOCYTE % (test code = IG%) 1.6 % 0.0-5.0 N LYMPHOCYTE % (test code = LY%) 10.6 % 25.0-55.0 L MONOCYTE % (test code = MO%) 7.6 % 0.0-10.0 N EOSINOPHIL % (test code = EO%) 0.4 % 0.0-5.0 N BASOPHIL % (test code = BA%) 0.6 % 0.0-1.0 N NUCLEATED RBC % (test code = NRBC%) 0.0 % 0-0 N NEUTROPHIL # (test code = NT#) 6.57 K/mm3 1.8-7.7 N IMMATURE GRANULOCYTE # (test code = IG#) 0.13 x10 3/uL 0-0.03 H LYMPHOCYTE # (test code = LY#) 0.88 K/mm3 1.0-5.0 L MONOCYTE # (test code = MO#) 0.63 K/mm3 0-0.8 N EOSINOPHIL # (test code = EO#) 0.03 K/mm3 0.0-0.5 N BASOPHIL # (test code = BA#) 0.05 K/mm3 0.0-0.2 N NUCLEATED RBC # (test code = NRBC#) 0.00 K/mm3 0.0-0.1 N MANUAL DIFF REQUIRED (test code = MDIFF) NO, ONLY SCAN NEEDED DIFFERENTIAL [id number] 06:58:00* Test Item Value Reference Range Interpretation Comments STAIN ACCEPTABILITY (test code = STN ACCEPTABLE) CABOT RINGS (test code = CAB) MORPHOLOGY COMMENT (test code = MOC) PLATELET ESTIMATE (test code = PLTEST) PLATELET MORPHOLOGY (test code = PLTMORPH) BASIC METABOLIC [id number] 06:53:00* Test Item Value Reference Range Interpretation Comments SODIUM (test code = NA) 140 mmol/L 136-145 N POTASSIUM (test code = K) 4.9 mmol/L 3.5-5.1 N CHLORIDE (test code = CL) 109.0 mmol/L 98-107 H CARBON DIOXIDE (test code = CO2) 19.0 mmol/L 21-32 L ANION GAP (test code = GAP) 16.9 10-20 N GLUCOSE (test code = GLU) 137 mg/dL 74-106 H BLOOD UREA NITROGEN (test code = BUN) 39 mg/dL 7-18 H GLOMERULAR FILTRATION RATE (test code = GFR) 11 mL/min >=60 Estimated GFR by using Modified MDRD formula.Chronic kidney disease is defined as either kidney damageor GFR <60 mL/min/1.73 m2 for >3 months. CREATININE (test code = CREAT) 5.30 mg/dL 0.7-1.3 H BUN/CREATININE RATIO (test code = BUN/CREA) 7.4 10-20 L CALCIUM (test code = CA) 8.1 mg/dL 8.5-10.1 L BASIC METABOLIC [id number] 06:42:00* Test Item Value Reference Range Interpretation Comments SODIUM (test code = NA) 140 mmol/L 136-145 N POTASSIUM (test code = K) 4.9 mmol/L 3.5-5.1 N CHLORIDE (test code = CL) 109.0 mmol/L 98-107 H CARBON DIOXIDE (test code = CO2) mmol/L 21-32 ANION GAP (test code = GAP) 10-20 GLUCOSE (test code = GLU) mg/dL 74-106 BLOOD UREA NITROGEN (test code = BUN) mg/dL 7-18 GLOMERULAR FILTRATION RATE (test code = GFR) mL/min >=60 CREATININE (test code = CREAT) mg/dL 0.7-1.3 BUN/CREATININE RATIO (test code = BUN/CREA) 10-20 CALCIUM (test code = CA) mg/dL 8.5-10.1 [id number] 05:55:00* Test Item Value Reference Range Interpretation Comments GLUBED (test code = GLUBED) 143 mg/dL 74-106 H Performed by certified photogravure press operator at [facility] [id number] 20:38:00* Test Item Value Reference Range Interpretation Comments GLUBED (test code = GLUBED) 143 mg/dL 74-106 H Performed by certified photogravure press operator at [facility] - XR CHEST 1 [id number] 19:10:00 FAX: Silvia Payan MD [phone] [place]: B St: ADM Name: XOCHILT REYNA [facility] : 11/21/18 41 Age/S: 77/M [address] [facility] Unit #: [id number] Loc: V.[address] [place] [address] Phys: Earle Alvarado MD Acct: [id number] Dis Date: Status: ADM IN PHONE #: [phone] Exam Date: 07/11/2018 1710 FAX #: [phone] Reason: CENTRAL LINE EXAMS: CPT CODE: [id number] XR CHEST 1 V 61977 EXAM: Chest x-ray, one view; INFORMATION: Sepsis; status post line placement; IMPRES VERONICA: 1. Well-positioned right IJ central line; its tip is in the SVC. 2. No evidence of a pneumothorax. 3. Otherwise, there has been im provement compared with the recent study from July 09, 2018; both lungs and in particular the left lung is substantially better aerated. Residual basilar atelectatic changes and small or moderate pleural eff usions. at 1910 Reported and signed by: Guille Laio M.D. CC: Silvia Slade MD Technologist: PENNY EPSTEIN; MAXIME DISLA RT (R) Trnscrd Date/Time/By: 07/11/2018 (1909) : By: FernandoGRW Orig Print D/T: S: 07/11/2018 (1912) PAGE 1 Signed Report - [facility] [id number] 17:42:00 Name: XOCHILT EPSTEIN [facility] : 1940 Age/S: 77 / M [address] [facility] Unit #: [id number] Loc: [place] [address] Phys: Silvia Contreras MD Acct: [id number] Dis Date: Status: ADM IN PHONE #: [phone] Exam Date: 07/11/2018 1657 FAX #: [phone] Reason: EXAMS: CPT CODE: [id number] [facility] ACCESS 22526 Fluoro Time: 0 DAP (Gy m2): 0 Air Kerma (mGy): 0 REASON FOR EXAM: Sepsis Exam Order Date: 07/11/2018 4:50 PM Attending David: Silvia Contreras MD PROCEDURE: Ultrasound guided triple-lumen central line placement FINDINGS: Prior to the procedure, informed consent was obtained after risks and benefits of the procedure were explained to the patient. The patient agreed and wanted to proceed. The equipment was brought to patient's bedside. The right neck and chest wall were prepped and draped in the usual fashion. All elements of maximal sterile barrier technique were followed. Ultrasound showed patency of the right IJ. No thrombus identified, the vein is patent. Images of the vein were submitted to PACS. Under real time ultrasound guidance, a micropuncture needle was used to access the vein. A triple-lumen central line was inserted with the tip positioned within the SVC (confirmed by follow-up chest x-ray). The catheter was sutured to the subcutaneous tissue and is ready for use. MEDICATIONS: None. COMPLICATIONS: None. Blood Loss: less than 5cc IMPRESSION: right IJ triple-lumen cent ral line is ready for use. at 1742 Reported and signed by: Earle Alvarado M.D. CC: Silvia Contreras MD Technolog ist: MARCELA WHITE RT(R) Trnscb Date/Time: (174) t.SDR.VTL Orig Print D/T: S: 07/11/2018 ( 6033) PAGE 1 Signed Report [id number] 16:23:00* Test Item Value Reference Range Interpretation Comments GLUBED (test code = GLUBED) 186 mg/dL 74-106 H Performed by certified photogravure press operator at [facility] BASIC METABOLIC [id number] 15:06:00* Test Item Value Reference Range Interpretation Comments SODIUM (test code = NA) 137 mmol/L 136-145 N POTASSIUM (test code = K) 4.3 mmol/L 3.5-5.1 N CHLORIDE (test code = CL) 106.0 mmol/L 98-107 N CARBON DIOXIDE (test code = CO2) 25.0 mmol/L 21-32 N ANION GAP (test code = GAP) 10.3 10-20 N GLUCOSE (test code = GLU) 204 mg/dL 74-106 H BLOOD UREA NITROGEN (test code = BUN) 35 mg/dL 7-18 H GLOMERULAR FILTRATION RATE (test code = GFR) 12 mL/min >=60 Estimated GFR by using Modified MDRD formula.Chronic kidney disease is defined as either kidney damageor GFR <60 mL/min/1.73 m2 for >3 months. CREATININE (test code = CREAT) 4.60 mg/dL 0.7-1.3 H BUN/CREATININE RATIO (test code = BUN/CREA) 7.6 10-20 L CALCIUM (test code = CA) 8.1 mg/dL 8.5-10.1 L [id number] 11:33:00* Test Item Value Reference Range Interpretation Comments GLUBED (test code = GLUBED) 185 mg/dL 74-106 H Performed by certified photogravure press operator at [facility] [id number] 09:26:00* Test Item Value Reference Range Interpretation Comments VANCOMYCIN (test code = VANCO) 33.4 UG/ML 5.0-45.0 N CBC W/AUTO [id number] 09:19:00* Test Item Value Reference Range Interpretation Comments WHITE BLOOD CELL (test code = WBC) 9.4 K/mm3 4.5-12.5 N RED BLOOD CELL (test code = RBC) 2.87 mill/mm3 4.0-5.8 L HEMOGLOBIN (test code = HGB) 7.9 gram/dL 13.0-17.5 L HEMATOCRIT (test code = HCT) 27.5 % 42.0-52.0 L MEAN CELL VOLUME (test code = MCV) 95.8 fL 80-98 N MEAN CELL HGB (test code = MCH) 27.5 picogram 27.0-33.0 N MEAN CELL HGB CONCETRATION (test code = MCHC) 28.7 gram/dL 33.0-36. 0 L RED CELL DISTRIBUTION WIDTH (test code = RDW) 14.0 % 11.6-16. 2 N RED CELL DISTRIBUTION WIDTH SD (test code = RDW-SD) 46.5 fL 37 .0-51.0 N PLATELET COUNT (test code = PLT) 365 K/mm3 150-450 N MEAN PLATELET VOLUME (test code = MPV) 9.6 fL 6.7-11.0 N NEUTROPHIL % (test code = NT%) 80.2 % 39.0-69.0 H IMMATURE GRANULOCYTE % (test code = IG%) 1.7 % 0.0-5.0 N LYMPHOCYTE % (test code = LY%) 9.3 % 25.0-55.0 L MONOCYTE % (test code = MO%) 8.0 % 0.0-10.0 N EOSINOPHIL % (test code = EO%) 0.4 % 0.0-5.0 N BASOPHIL % (test code = BA%) 0.4 % 0.0-1.0 N NUCLEATED RBC % (test code = NRBC%) 0.0 % 0-0 N NEUTROPHIL # (test code = NT#) 7.51 K/mm3 1.8-7.7 N IMMATURE GRANULOCYTE # (test code = IG#) 0.16 x10 3/uL 0-0.03 H LYMPHOCYTE # (test code = LY#) 0.87 K/mm3 1.0-5.0 L MONOCYTE # (test code = MO#) 0.75 K/mm3 0-0.8 N EOSINOPHIL # (test code = EO#) 0.04 K/mm3 0.0-0.5 N BASOPHIL # (test code = BA#) 0.04 K/mm3 0.0-0.2 N NUCLEATED RBC # (test code = NRBC#) 0.00 K/mm3 0.0-0.1 N MANUAL DIFF REQUIRED (test code = MDIFF) NO, ONLY SCAN NEEDED DIFFERENTIAL [id number] 09:19:00* Test Item Value Reference Range Interpretation Comments STAIN ACCEPTABILITY (test code = STN ACCEPTABLE) STAIN ACCEPTABLE POLYCHROMASIA (test code = POLC) 1+ HYPOCHROMIA (test code = HYPO) 1+ POIKILOCYTOSIS (test code = POIK) 1+ ANISOCYTOSIS (test code = ANISO) 1+ PLATELET ESTIMATE (test code = PLTEST) ADEQUATE PLATELET MORPHOLOGY (test code = PLTMORPH) NORMAL CBC W/AUTO [id number] 07:26:00* Test Item Value Reference Range Interpretation Comments WHITE BLOOD CELL (test code = WBC) 9.4 K/mm3 4.5-12.5 N RED BLOOD CELL (test code = RBC) 2.87 mill/mm3 4.0-5.8 L HEMOGLOBIN (test code = HGB) 7.9 gram/dL 13.0-17.5 L HEMATOCRIT (test code = HCT) 27.5 % 42.0-52.0 L MEAN CELL VOLUME (test code = MCV) 95.8 fL 80-98 N MEAN CELL HGB (test code = MCH) 27.5 picogram 27.0-33.0 N MEAN CELL HGB CONCETRATION (test code = MCHC) 28.7 gram/dL 33.0-36. 0 L RED CELL DISTRIBUTION WIDTH (test code = RDW) 14.0 % 11.6-16. 2 N RED CELL DISTRIBUTION WIDTH SD (test code = RDW-SD) 46.5 fL 37 .0-51.0 N PLATELET COUNT (test code = PLT) 365 K/mm3 150-450 N MEAN PLATELET VOLUME (test code = MPV) 9.6 fL 6.7-11.0 N NEUTROPHIL % (test code = NT%) 80.2 % 39.0-69.0 H IMMATURE GRANULOCYTE % (test code = IG%) 1.7 % 0.0-5.0 N LYMPHOCYTE % (test code = LY%) 9.3 % 25.0-55.0 L MONOCYTE % (test code = MO%) 8.0 % 0.0-10.0 N EOSINOPHIL % (test code = EO%) 0.4 % 0.0-5.0 N BASOPHIL % (test code = BA%) 0.4 % 0.0-1.0 N NUCLEATED RBC % (test code = NRBC%) 0.0 % 0-0 N NEUTROPHIL # (test code = NT#) 7.51 K/mm3 1.8-7.7 N IMMATURE GRANULOCYTE # (test code = IG#) 0.16 x10 3/uL 0-0.03 H LYMPHOCYTE # (test code = LY#) 0.87 K/mm3 1.0-5.0 L MONOCYTE # (test code = MO#) 0.75 K/mm3 0-0.8 N EOSINOPHIL # (test code = EO#) 0.04 K/mm3 0.0-0.5 N BASOPHIL # (test code = BA#) 0.04 K/mm3 0.0-0.2 N NUCLEATED RBC # (test code = NRBC#) 0.00 K/mm3 0.0-0.1 N MANUAL DIFF REQUIRED (test code = MDIFF) NO, ONLY SCAN NEEDED DIFFERENTIAL [id number] 07:26:00* Test Item Value Reference Range Interpretation Comments STAIN ACCEPTABILITY (test code = STN ACCEPTABLE) CABOT RINGS (test code = CAB) MORPHOLOGY COMMENT (test code = MOC) PLATELET ESTIMATE (test code = PLTEST) PLATELET MORPHOLOGY (test code = PLTMORPH) CBC W/AUTO [id number] 07:26:00* Test Item Value Reference Range Interpretation Comments WHITE BLOOD CELL (test code = WBC) 9.4 K/mm3 4.5-12.5 N RED BLOOD CELL (test code = RBC) 2.87 mill/mm3 4.0-5.8 L HEMOGLOBIN (test code = HGB) 7.9 gram/dL 13.0-17.5 L HEMATOCRIT (test code = HCT) 27.5 % 42.0-52.0 L MEAN CELL VOLUME (test code = MCV) 95.8 fL 80-98 N MEAN CELL HGB (test code = MCH) 27.5 picogram 27.0-33.0 N MEAN CELL HGB CONCETRATION (test code = MCHC) 28.7 gram/dL 33.0-36. 0 L RED CELL DISTRIBUTION WIDTH (test code = RDW) 14.0 % 11.6-16. 2 N RED CELL DISTRIBUTION WIDTH SD (test code = RDW-SD) 46.5 fL 37 .0-51.0 N PLATELET COUNT (test code = PLT) 365 K/mm3 150-450 N MEAN PLATELET VOLUME (test code = MPV) 9.6 fL 6.7-11.0 N NEUTROPHIL % (test code = NT%) 80.2 % 39.0-69.0 H IMMATURE GRANULOCYTE % (test code = IG%) 1.7 % 0.0-5.0 N LYMPHOCYTE % (test code = LY%) 9.3 % 25.0-55.0 L MONOCYTE % (test code = MO%) 8.0 % 0.0-10.0 N EOSINOPHIL % (test code = EO%) 0.4 % 0.0-5.0 N BASOPHIL % (test code = BA%) 0.4 % 0.0-1.0 N NUCLEATED RBC % (test code = NRBC%) 0.0 % 0-0 N NEUTROPHIL # (test code = NT#) 7.51 K/mm3 1.8-7.7 N IMMATURE GRANULOCYTE # (test code = IG#) 0.16 x10 3/uL 0-0.03 H LYMPHOCYTE # (test code = LY#) 0.87 K/mm3 1.0-5.0 L MONOCYTE # (test code = MO#) 0.75 K/mm3 0-0.8 N EOSINOPHIL # (test code = EO#) 0.04 K/mm3 0.0-0.5 N BASOPHIL # (test code = BA#) 0.04 K/mm3 0.0-0.2 N NUCLEATED RBC # (test code = NRBC#) 0.00 K/mm3 0.0-0.1 N MANUAL DIFF REQUIRED (test code = MDIFF) NO, ONLY SCAN NEEDED DIFFERENTIAL [id number] 07:26:00* Test Item Value Reference Range Interpretation Comments STAIN ACCEPTABILITY (test code = STN ACCEPTABLE) CABOT RINGS (test code = CAB) MORPHOLOGY COMMENT (test code = MOC) PLATELET ESTIMATE (test code = PLTEST) PLATELET MORPHOLOGY (test code = PLTMORPH) CBC W/AUTO [id number] 07:26:00* Test Item Value Reference Range Interpretation Comments WHITE BLOOD CELL (test code = WBC) 9.4 K/mm3 4.5-12.5 N RED BLOOD CELL (test code = RBC) 2.87 mill/mm3 4.0-5.8 L HEMOGLOBIN (test code = HGB) 7.9 gram/dL 13.0-17.5 L HEMATOCRIT (test code = HCT) 27.5 % 42.0-52.0 L MEAN CELL VOLUME (test code = MCV) 95.8 fL 80-98 N MEAN CELL HGB (test code = MCH) 27.5 picogram 27.0-33.0 N MEAN CELL HGB CONCETRATION (test code = MCHC) 28.7 gram/dL 33.0-36. 0 L RED CELL DISTRIBUTION WIDTH (test code = RDW) 14.0 % 11.6-16. 2 N RED CELL DISTRIBUTION WIDTH SD (test code = RDW-SD) 46.5 fL 37 .0-51.0 N PLATELET COUNT (test code = PLT) 365 K/mm3 150-450 N MEAN PLATELET VOLUME (test code = MPV) 9.6 fL 6.7-11.0 N NEUTROPHIL % (test code = NT%) 80.2 % 39.0-69.0 H IMMATURE GRANULOCYTE % (test code = IG%) 1.7 % 0.0-5.0 N LYMPHOCYTE % (test code = LY%) 9.3 % 25.0-55.0 L MONOCYTE % (test code = MO%) 8.0 % 0.0-10.0 N EOSINOPHIL % (test code = EO%) 0.4 % 0.0-5.0 N BASOPHIL % (test code = BA%) 0.4 % 0.0-1.0 N NUCLEATED RBC % (test code = NRBC%) 0.0 % 0-0 N NEUTROPHIL # (test code = NT#) 7.51 K/mm3 1.8-7.7 N IMMATURE GRANULOCYTE # (test code = IG#) 0.16 x10 3/uL 0-0.03 H LYMPHOCYTE # (test code = LY#) 0.87 K/mm3 1.0-5.0 L MONOCYTE # (test code = MO#) 0.75 K/mm3 0-0.8 N EOSINOPHIL # (test code = EO#) 0.04 K/mm3 0.0-0.5 N BASOPHIL # (test code = BA#) 0.04 K/mm3 0.0-0.2 N NUCLEATED RBC # (test code = NRBC#) 0.00 K/mm3 0.0-0.1 N MANUAL DIFF REQUIRED (test code = MDIFF) NO, ONLY SCAN NEEDED DIFFERENTIAL [id number] 07:26:00* Test Item Value Reference Range Interpretation Comments STAIN ACCEPTABILITY (test code = STN ACCEPTABLE) MORPHOLOGY COMMENT (test code = MOC) PLATELET ESTIMATE (test code = PLTEST) PLATELET MORPHOLOGY (test code = PLTMORPH) CBC W/AUTO [id number] 07:26:00* Test Item Value Reference Range Interpretation Comments WHITE BLOOD CELL (test code = WBC) 9.4 K/mm3 4.5-12.5 N RED BLOOD CELL (test code = RBC) 2.87 mill/mm3 4.0-5.8 L HEMOGLOBIN (test code = HGB) 7.9 gram/dL 13.0-17.5 L HEMATOCRIT (test code = HCT) 27.5 % 42.0-52.0 L MEAN CELL VOLUME (test code = MCV) 95.8 fL 80-98 N MEAN CELL HGB (test code = MCH) 27.5 picogram 27.0-33.0 N MEAN CELL HGB CONCETRATION (test code = MCHC) 28.7 gram/dL 33.0-36. 0 L RED CELL DISTRIBUTION WIDTH (test code = RDW) 14.0 % 11.6-16. 2 N RED CELL DISTRIBUTION WIDTH SD (test code = RDW-SD) 46.5 fL 37 .0-51.0 N PLATELET COUNT (test code = PLT) 365 K/mm3 150-450 N MEAN PLATELET VOLUME (test code = MPV) 9.6 fL 6.7-11.0 N NEUTROPHIL % (test code = NT%) 80.2 % 39.0-69.0 H IMMATURE GRANULOCYTE % (test code = IG%) 1.7 % 0.0-5.0 N LYMPHOCYTE % (test code = LY%) 9.3 % 25.0-55.0 L MONOCYTE % (test code = MO%) 8.0 % 0.0-10.0 N EOSINOPHIL % (test code = EO%) 0.4 % 0.0-5.0 N BASOPHIL % (test code = BA%) 0.4 % 0.0-1.0 N NUCLEATED RBC % (test code = NRBC%) 0.0 % 0-0 N NEUTROPHIL # (test code = NT#) 7.51 K/mm3 1.8-7.7 N IMMATURE GRANULOCYTE # (test code = IG#) 0.16 x10 3/uL 0-0.03 H LYMPHOCYTE # (test code = LY#) 0.87 K/mm3 1.0-5.0 L MONOCYTE # (test code = MO#) 0.75 K/mm3 0-0.8 N EOSINOPHIL # (test code = EO#) 0.04 K/mm3 0.0-0.5 N BASOPHIL # (test code = BA#) 0.04 K/mm3 0.0-0.2 N NUCLEATED RBC # (test code = NRBC#) 0.00 K/mm3 0.0-0.1 N MANUAL DIFF REQUIRED (test code = MDIFF) NO, ONLY SCAN NEEDED DIFFERENTIAL [id number] 07:26:00* Test Item Value Reference Range Interpretation Comments STAIN ACCEPTABILITY (test code = STN ACCEPTABLE) CABOT RINGS (test code = CAB) MORPHOLOGY COMMENT (test code = MOC) PLATELET ESTIMATE (test code = PLTEST) PLATELET MORPHOLOGY (test code = PLTMORPH) BASIC METABOLIC [id number] 06:50:00* Test Item Value Reference Range Interpretation Comments SODIUM (test code = NA) 137 mmol/L 136-145 N POTASSIUM (test code = K) 4.2 mmol/L 3.5-5.1 N CHLORIDE (test code = CL) 106.0 mmol/L 98-107 N CARBON DIOXIDE (test code = CO2) 21.0 mmol/L 21-32 N ANION GAP (test code = GAP) 14.2 10-20 N GLUCOSE (test code = GLU) 210 mg/dL 74-106 H BLOOD UREA NITROGEN (test code = BUN) 34 mg/dL 7-18 H GLOMERULAR FILTRATION RATE (test code = GFR) 14 mL/min >=60 Estimated GFR by using Modified MDRD formula.Chronic kidney disease is defined as either kidney damageor GFR <60 mL/min/1.73 m2 for >3 months. CREATININE (test code = CREAT) 4.10 mg/dL 0.7-1.3 H BUN/CREATININE RATIO (test code = BUN/CREA) 8.4 10-20 L CALCIUM (test code = CA) 8.1 mg/dL 8.5-10.1 L BASIC METABOLIC [id number] 06:48:00* Test Item Value Reference Range Interpretation Comments SODIUM (test code = NA) 137 mmol/L 136-145 N POTASSIUM (test code = K) 4.2 mmol/L 3.5-5.1 N CHLORIDE (test code = CL) 106.0 mmol/L 98-107 N CARBON DIOXIDE (test code = CO2) mmol/L 21-32 ANION GAP (test code = GAP) 10-20 GLUCOSE (test code = GLU) mg/dL 74-106 BLOOD UREA NITROGEN (test code = BUN) mg/dL 7-18 GLOMERULAR FILTRATION RATE (test code = GFR) mL/min >=60 CREATININE (test code = CREAT) mg/dL 0.7-1.3 BUN/CREATININE RATIO (test code = BUN/CREA) 10-20 CALCIUM (test code = CA) mg/dL 8.5-10.1 [id number] 05:55:00* Test Item Value Reference Range Interpretation Comments GLUBED (test code = GLUBED) 192 mg/dL 74-106 H Performed by certified photogravure press operator at [facility] [id number] 20:37:00* Test Item Value Reference Range Interpretation Comments GLUBED (test code = GLUBED) 194 mg/dL 74-106 H Performed by certified photogravure press operator at [facility] UR SMEAR EOSINOPHIL [id number] 16:53:00* Test Item Value Reference Range Interpretation Comments UR SMEAR EOSINOPHIL COUNT (test code = EOSCTU) NONE SEEN per HPF NO NE SEEN UR NA,[id number] 16:53:00* Test Item Value Reference Range Interpretation Comments UR NA,RANDOM (test code = BETSY) 82 mmol/L 20-110 N UR PROTEIN/CREATININE [id number] 16:53:00* Test Item Value Reference Range Interpretation Comments UR PROTEIN RANDOM (test code = PROTU) 307.4 mg/dL 0.0-11.9 H Protein levels may be falsely elevated in patients withelevated level of aminoglycoside antibiotics in CSF and inhighly concentrated urine specimens. If false elevation issuspected, contact lab for alternated testing technique. UR CREATININE RANDOM (test code = CREATU) 114.0 mg/dL 30-125 N PROTEIN/CREATININE RATIO (test code = P/CRATIO) 2.70 RATIO 0.0-0. 20 H UR UREA NITROGEN [id number] 16:53:00* Test Item Value Reference Range Interpretation Comments UR UREA NITROGEN RANDOM (test code = UUN) 99 mg/dL 350-1000 L UR SMEAR EOSINOPHIL [id number] 16:43:00* Test Item Value Reference Range Interpretation Comments UR SMEAR EOSINOPHIL COUNT (test code = EOSCTU) per HPF NONE SE EN UR NA,[id number] 16:43:00* Test Item Value Reference Range Interpretation Comments UR NA,RANDOM (test code = BETSY) 82 mmol/L 20-110 N UR PROTEIN/CREATININE [id number] 16:43:00* Test Item Value Reference Range Interpretation Comments UR PROTEIN RANDOM (test code = PROTU) 307.4 mg/dL 0.0-11.9 H Protein levels may be falsely elevated in patients withelevated level of aminoglycoside antibiotics in CSF and inhighly concentrated urine specimens. If false elevation issuspected, contact lab for alternated testing technique. UR CREATININE RANDOM (test code = CREATU) 114.0 mg/dL 30-125 N PROTEIN/CREATININE RATIO (test code = P/CRATIO) 2.70 RATIO 0.0-0. 20 H UR UREA NITROGEN [id number] 16:43:00* Test Item Value Reference Range Interpretation Comments UR UREA NITROGEN RANDOM (test code = UUN) 99 mg/dL 350-1000 L UR SMEAR EOSINOPHIL [id number] 16:33:00* Test Item Value Reference Range Interpretation Comments UR SMEAR EOSINOPHIL COUNT (test code = EOSCTU) per HPF NONE SE EN UR NA,[id number] 16:33:00* Test Item Value Reference Range Interpretation Comments UR NA,RANDOM (test code = BETSY) 82 mmol/L 20-110 N UR PROTEIN/CREATININE [id number] 16:33:00* Test Item Value Reference Range Interpretation Comments UR PROTEIN RANDOM (test code = PROTU) mg/dL 0.0-11.9 UR CREATININE RANDOM (test code = CREATU) mg/dL 30-125 PROTEIN/CREATININE RATIO (test code = P/CRATIO) RATIO 0.0-0. 20 UR UREA NITROGEN [id number] 16:33:00* Test Item Value Reference Range Interpretation Comments UR UREA NITROGEN RANDOM (test code = UUN) mg/dL 350-1000 [id number] 16:12:00* Test Item Value Reference Range Interpretation Comments GLUBED (test code = GLUBED) 216 mg/dL 74-106 H Performed by certified photogravure press operator at [facility] B-TYPE NATRIURETIC [id number] 14:17:00* Test Item Value Reference Range Interpretation Comments B-TYPE NATRIURETIC PEPTIDE (test code = BNP) 872.89 pgram/mL 0-100 H BASIC METABOLIC [id number] 12:16:00* Test Item Value Reference Range Interpretation Comments SODIUM (test code = NA) 139 mmol/L 136-145 N POTASSIUM (test code = K) 4.6 mmol/L 3.5-5.1 N CHLORIDE (test code = CL) 109.0 mmol/L 98-107 H CARBON DIOXIDE (test code = CO2) 21.0 mmol/L 21-32 N ANION GAP (test code = GAP) 13.6 10-20 N GLUCOSE (test code = GLU) 201 mg/dL 74-106 H BLOOD UREA NITROGEN (test code = BUN) 24 mg/dL 7-18 H GLOMERULAR FILTRATION RATE (test code = GFR) 23 mL/min >=60 Estimated GFR by using Modified MDRD formula.Chronic kidney disease is defined as either kidney damageor GFR <60 mL/min/1.73 m2 for >3 months. CREATININE (test code = CREAT) 2.70 mg/dL 0.7-1.3 H BUN/CREATININE RATIO (test code = BUN/CREA) 8.9 10-20 L CALCIUM (test code = CA) 7.9 mg/dL 8.5-10.1 L [id number] 12:07:00* Test Item Value Reference Range Interpretation Comments GLUBED (test code = GLUBED) 181 mg/dL 74-106 H Performed by certified photogravure press operator at [facility] VANCOMYCIN [id number] 11:21:00* Test Item Value Reference Range Interpretation Comments VANCOMYCIN TROUGH (test code = VANCT) 37.1 ug/mL 10-20 H [id number] 05:33:00* Test Item Value Reference Range Interpretation Comments GLUBED (test code = GLUBED) 162 mg/dL 74-106 H Performed by certified photogravure press operator at [facility] - CT CHEST W/O [id number] 21:50:00 Name: XOCHILT EPSTEIN [facility] : 1940 Age/S: 77 / M [address] [facility] Unit #: [id number] Loc: [place] [address] Phys: Alexia Clinton MD Acct: [id number] Dis Date: Status: ADM IN PHONE #: [phone] Exam Date: 07/09/20182026 FAX #: [phone] Reason: abnormal cxr EXAMS: CPT CODE: [id number] CT CHEST W/O CONTRAST 86414 EXAM: CT of the chest without contrast; INFORMATION: Sepsis; TECHNIQUE AND FINDINGS: CT dose reduction protocol; 5 mm cuts through the chest without contrast. There are moderate bilateral pleural effusions and there is extensive pleural thickening on the left side. There are also atelectatic changes involving the basilar and infrahilar portions of both lungs as well as the basilar portions of the lingula. Mild groundglass opacities are seen in the upper lobes. The heart is slightly enlarged. Calcifications of the thoracic aorta and coronary arteries. Calcified hilar and mediastinal lymph nodes. IMPRESSION: 1. Moderate bilateral pleural effusions. 2. Pleural thickening and atelectatic changes. 3. Mild cardiomegaly. at 2150 Reported and signed by: Guille Liao M.D. CC: Silvia Contreras MD; Alexia Clinton MD Technologist:TELLY BELL, RT(R) CT CTDI: DLP: Trnscb Date/Time: 07/09/2018 (2149) [email or web address] Orig Print D/T: S: 07/09/2018 (2152) CTDI: DLP: PAGE 1 Signed Report [id number] 20:44:00* Test Item Value Reference Range Interpretation Comments GLUBED (test code = GLUBED) 217 mg/dL 74-106 H Performed by certified photogravure press operator at [facility] [id number] 19:23:00* Test Item Value Reference Range Interpretation Comments GLUBED (test code = GLUBED) 226 mg/dL 74-106 H Performed by certified photogravure press operator at [facility] URINALYSIS [id number] 16:05:00* Test Item Value Reference Range Interpretation Comments UA COLOR (test code = COLU) RED YELLOW A UA APPEARANCE (test code = APPU) Cloudy CLEAR A UA GLUCOSE DIPSTICK (test code = DGLUU) TRACE mg/dL NEGATIVE UA BILIRUBIN DIPSTICK (test code = BILU) NEGATIVE NEGATIVE UA KETONE DIPSTICK (test code = KETU) 1+ mg/dL NEGATIVE UA SPECIFIC GRAVITY (test code = SGU) 1.020 1.001-1.035 UA BLOOD DIPSTICK (test code = SUSI) 3+ (Large) NEGATIVE A UA PH DIPSTICK (test code = MELINDA) 5.0 5.0-8.0 UA PROTEIN DIPSTICK (test code = PROU) >=300 (3+) mg/dL Neg-15 UA UROBILINIOGEN DIPSTICK (test code = URO) 2.0 (1+) mg/dL 0.0 -0.2 UA NITRITE DIPSTICK (test code = MARIAMA) POSITIVE NEGATIVE UA LEUKOCYTE ESTERASE W REFLEX (test code = LEUUR) 2+ NEG ATIVE UA WBC (test code = WBCU) 6-10 per HPF 0-5 IN SOME URINARY TRACT INFECTIONS THERE MAY NOT BE ENOUGHWBCs IN THE URINE TO TRIGGER AN AUTOMATIC (REFLEX) URINECULTURE. A SEPERATE ORDER FOR URINE CULTURE IS RECOMMENDEDIF THERE IS STRONG SUPPORT FOR A URINARY TRACT INFECTIONCLINICALLY. UA RBC (test code = RBCU) >20 per HPF 0-5 UA EPITHELIAL CELLS (test code = EPIU) Few (2-5/hpf) per HPF Few UA BACTERIA (test code = BACU) FEW per HPF NONE UA AMORPHOUS SEDIMENT (test code = AMORU) FEW per LPF NONE A Urine Source? Catheter- XR CHEST 1 [id number] 16:05:00 FAX: Silvia Payan MD [phone] [place]: St: ADM FAX: Talon Johnson MD [phone] Name: LUCIANXOCHILT SOTELOELICEO [facility] : 1940 Age/S: 77/M [address] [facility] Unit #: [id number] Loc: [address] [place] [address] Phys: Talon Coates MD Acct: [id number] Dis Date: Status: ADM IN PHONE #: [phone] Exam Date: 07/09/2018 1451 FAX #: [phone] Reason: SOB,cough,CP EXAMS: CPT CODE: [id number] XR CHEST 1 V 10844 EXAM: Chest x-ray, one view; INFORMATION: Sepsis, shortness of breath and cough; chest pain; IMPRESSION: 1 . Significant deterioration compared with the recent study from June 22, 2018: The left lung is almost completely opacified and there are also e xtensive infiltrative changes involving the perihilar and basilar portio ns of the right lung. This could be due to pulmonary edema or pneumonia. 2. The heart is borderline in size. at 1605 Reported and signed by: Sarina Ruelas CC: Silvia Contreras MD; Talon Coates M.D. Technologist: Jamila Brandon RT(R) T rnscrd Date/Time/By: 07/09/2018 (2356) : By: [email or web address].GRW Orig Print D/T: S: 07/09/2018 (5075) PAGE 1 Sign ed Report URINALYSIS [id number] 15:54:00* Test Item Value Reference Range Interpretation Comments UA COLOR (test code = COLU) RED YELLOW A UA APPEARANCE (test code = APPU) Cloudy CLEAR A UA BILIRUBIN DIPSTICK (test code = BILU) NEGATIVE UA SPECIFIC GRAVITY (test code = SGU) 1.001-1.035 UA PH DIPSTICK (test code = MELINDA) 5.0-8.0 UA UROBILINIOGEN DIPSTICK (test code = URO) mg/dL 0.0-0.2 UA NITRITE DIPSTICK (test code = MARIAMA) NEGATIVE UA LEUKOCYTE ESTERASE W REFLEX (test code = LEUUR) NEG ATIVE UA WBC (test code = WBCU) per HPF 0-5 Urine Source? CatheterURINALYSIS [id number] 15:54:00* Test Item Value Reference Range Interpretation Comments UA COLOR (test code = COLU) RED YELLOW A UA APPEARANCE (test code = APPU) Cloudy CLEAR A UA GLUCOSE DIPSTICK (test code = DGLUU) TRACE mg/dL NEGATIVE UA BILIRUBIN DIPSTICK (test code = BILU) NEGATIVE NEGATIVE UA KETONE DIPSTICK (test code = KETU) 1+ mg/dL NEGATIVE UA SPECIFIC GRAVITY (test code = SGU) 1.020 1.001-1.035 UA BLOOD DIPSTICK (test code = SUSI) 3+ (Large) NEGATIVE A UA PH DIPSTICK (test code = MELINDA) 5.0 5.0-8.0 UA PROTEIN DIPSTICK (test code = PROU) >=300 (3+) mg/dL Neg-15 UA UROBILINIOGEN DIPSTICK (test code = URO) 2.0 (1+) mg/dL 0.0 -0.2 UA NITRITE DIPSTICK (test code = MARIAMA) POSITIVE NEGATIVE UA LEUKOCYTE ESTERASE W REFLEX (test code = LEUUR) 2+ NEG ATIVE UA WBC (test code = WBCU) per HPF 0-5 Urine Source? [id number] 14:29:00* Test Item Value Reference Range Interpretation Comments TROPONIN-I (test code = TROPI) 0.526 ng/mL 0-0.045 Results called to [id number] by [email or web address] 07/09/18 1429Critical results verified and read back by Nurse? Y BASIC METABOLIC [id number] 14:18:00* Test Item Value Reference Range Interpretation Comments SODIUM (test code = NA) 137 mmol/L 136-145 N POTASSIUM (test code = K) 3.8 mmol/L 3.5-5.1 N CHLORIDE (test code = CL) 107.0 mmol/L 98-107 N CARBON DIOXIDE (test code = CO2) 22.0 mmol/L 21-32 N ANION GAP (test code = GAP) 11.8 10-20 N GLUCOSE (test code = GLU) 258 mg/dL 74-106 H BLOOD UREA NITROGEN (test code = BUN) 16 mg/dL 7-18 N GLOMERULAR FILTRATION RATE (test code = GFR) 59 mL/min >=60 Estimated GFR by using Modified MDRD formula.Chronic kidney disease is defined as either kidney damageor GFR <60 mL/min/1.73 m2 for >3 months. CREATININE (test code = CREAT) 1.20 mg/dL 0.7-1.3 N BUN/CREATININE RATIO (test code = BUN/CREA) 12.9 10-20 N CALCIUM (test code = CA) 7.9 mg/dL 8.5-10.1 L BASIC METABOLIC [id number] 14:15:00* Test Item Value Reference Range Interpretation Comments SODIUM (test code = NA) 137 mmol/L 136-145 N POTASSIUM (test code = K) 3.8 mmol/L 3.5-5.1 N CHLORIDE (test code = CL) 107.0 mmol/L 98-107 N CARBON DIOXIDE (test code = CO2) mmol/L 21-32 ANION GAP (test code = GAP) 10-20 GLUCOSE (test code = GLU) mg/dL 74-106 BLOOD UREA NITROGEN (test code = BUN) mg/dL 7-18 GLOMERULAR FILTRATION RATE (test code = GFR) mL/min >=60 CREATININE (test code = CREAT) mg/dL 0.7-1.3 BUN/CREATININE RATIO (test code = BUN/CREA) 10-20 CALCIUM (test code = CA) 7.9 mg/dL 8.5-10.1 L CBC W/AUTO [id number] 13:37:00* Test Item Value Reference Range Interpretation Comments WHITE BLOOD CELL (test code = WBC) 10.0 K/mm3 4.5-12.5 N RED BLOOD CELL (test code = RBC) 2.96 mill/mm3 4.0-5.8 L HEMOGLOBIN (test code = HGB) 8.3 gram/dL 13.0-17.5 L HEMATOCRIT (test code = HCT) 28.0 % 42.0-52.0 L MEAN CELL VOLUME (test code = MCV) 94.6 fL 80-98 N MEAN CELL HGB (test code = MCH) 28.0 picogram 27.0-33.0 N MEAN CELL HGB CONCETRATION (test code = MCHC) 29.6 gram/dL 33.0-36. 0 L RED CELL DISTRIBUTION WIDTH (test code = RDW) 13.6 % 11.6-16. 2 N RED CELL DISTRIBUTION WIDTH SD (test code = RDW-SD) 45.3 fL 37 .0-51.0 N PLATELET COUNT (test code = PLT) 347 K/mm3 150-450 RESULT VERIFIED BY REPEAT ANALYSIS MEAN PLATELET VOLUME (test code = MPV) 9.6 fL 6.7-11.0 N NEUTROPHIL % (test code = NT%) 86.3 % 39.0-69.0 H IMMATURE GRANULOCYTE % (test code = IG%) 1.3 % 0.0-5.0 N LYMPHOCYTE % (test code = LY%) 5.1 % 25.0-55.0 L MONOCYTE % (test code = MO%) 7.0 % 0.0-10.0 N EOSINOPHIL % (test code = EO%) 0.0 % 0.0-5.0 N BASOPHIL % (test code = BA%) 0.3 % 0.0-1.0 N NUCLEATED RBC % (test code = NRBC%) 0.0 % 0-0 N NEUTROPHIL # (test code = NT#) 8.65 K/mm3 1.8-7.7 H IMMATURE GRANULOCYTE # (test code = IG#) 0.13 x10 3/uL 0-0.03 H LYMPHOCYTE # (test code = LY#) 0.51 K/mm3 1.0-5.0 L MONOCYTE # (test code = MO#) 0.70 K/mm3 0-0.8 N EOSINOPHIL # (test code = EO#) 0.00 K/mm3 0.0-0.5 N BASOPHIL # (test code = BA#) 0.03 K/mm3 0.0-0.2 N NUCLEATED RBC # (test code = NRBC#) 0.00 K/mm3 0.0-0.1 N MANUAL DIFF REQUIRED (test code = MDIFF) NO [id number] 12:34:00* Test Item Value Reference Range Interpretation Comments GLUBED (test code = GLUBED) 244 mg/dL 74-106 H Performed by certified photogravure press operator at [facility] [id number] 06:20:00* Test Item Value Reference Range Interpretation Comments GLUBED (test code = GLUBED) 166 mg/dL 74-106 H Performed by certified photogravure press operator at [facility] [id number] 21:01:00* Test Item Value Reference Range Interpretation Comments GLUBED (test code = GLUBED) 222 mg/dL 74-106 H Performed by certified photogravure press operator at [facility] [id number] 18:06:00* Test Item Value Reference Range Interpretation Comments GLUBED (test code = GLUBED) 212 mg/dL 74-106 H Performed by certified photogravure press operator at [facility] [id number] 12:38:00* Test Item Value Reference Range Interpretation Comments GLUBED (test code = GLUBED) 170 mg/dL 74-106 H Performed by certified photogravure press operator at [facility] BASIC METABOLIC [id number] 07:07:00* Test Item Value Reference Range Interpretation Comments SODIUM (test code = NA) 140 mmol/L 136-145 N POTASSIUM (test code = K) 3.2 mmol/L 3.5-5.1 L CHLORIDE (test code = CL) 105.0 mmol/L 98-107 N CARBON DIOXIDE (test code = CO2) 29.0 mmol/L 21-32 N ANION GAP (test code = GAP) 9.2 10-20 L GLUCOSE (test code = GLU) 134 mg/dL 74-106 H BLOOD UREA NITROGEN (test code = BUN) 9 mg/dL 7-18 N GLOMERULAR FILTRATION RATE (test code = GFR) > 60 mL/min >=60 Estimated GFR by using Modified MDRD formula.Chronic kidney disease is defined as either kidney damageor GFR <60 mL/min/1.73 m2 for >3 months. CREATININE (test code = CREAT) 0.70 mg/dL 0.7-1.3 N BUN/CREATININE RATIO (test code = BUN/CREA) 13.0 10-20 N CALCIUM (test code = CA) 8.1 mg/dL 8.5-10.1 L BASIC METABOLIC [id number] 06:59:00* Test Item Value Reference Range Interpretation Comments SODIUM (test code = NA) 140 mmol/L 136-145 N POTASSIUM (test code = K) 3.2 mmol/L 3.5-5.1 L CHLORIDE (test code = CL) 105.0 mmol/L 98-107 N CARBON DIOXIDE (test code = CO2) mmol/L 21-32 ANION GAP (test code = GAP) 10-20 GLUCOSE (test code = GLU) mg/dL 74-106 BLOOD UREA NITROGEN (test code = BUN) mg/dL 7-18 GLOMERULAR FILTRATION RATE (test code = GFR) mL/min >=60 CREATININE (test code = CREAT) mg/dL 0.7-1.3 BUN/CREATININE RATIO (test code = BUN/CREA) 10-20 CALCIUM (test code = CA) mg/dL 8.5-10.1 CBC W/O [id number] 06:52:00* Test Item Value Reference Range Interpretation Comments WHITE BLOOD CELL (test code = WBC) 8.8 K/mm3 4.5-12.5 N RED BLOOD CELL (test code = RBC) 3.14 mill/mm3 4.0-5.8 L HEMOGLOBIN (test code = HGB) 9.0 gram/dL 13.0-17.5 L HEMATOCRIT (test code = HCT) 29.1 % 42.0-52.0 L MEAN CELL VOLUME (test code = MCV) 92.7 fL 80-98 N MEAN CELL HGB (test code = MCH) 28.7 picogram 27.0-33.0 N MEAN CELL HGB CONCETRATION (test code = MCHC) 30.9 gram/dL 33.0-36. 0 L RED CELL DISTRIBUTION WIDTH (test code = RDW) 13.3 % 11.6-16. 2 N PLATELET COUNT (test code = PLT) 425 K/mm3 150-450 N MEAN PLATELET VOLUME (test code = MPV) 9.2 fL 6.7-11.0 N [id number] 06:36:00* Test Item Value Reference Range Interpretation Comments GLUBED (test code = GLUBED) 152 mg/dL 74-106 H Performed by certified photogravure press operator at [facility] [id number] 06:01:00* Test Item Value Reference Range Interpretation Comments GLUBED (test code = GLUBED) 181 mg/dL 74-106 H Performed by certified photogravure press operator at [facility] [id number] 16:30:00* Test Item Value Reference Range Interpretation Comments GLUBED (test code = GLUBED) 192 mg/dL 74-106 H Performed by certified photogravure press operator at [facility] [id number] 10:58:00* Test Item Value Reference Range Interpretation Comments GLUBED (test code = GLUBED) 168 mg/dL 74-106 H Performed by certified photogravure press operator at [facility] [id number] 04:58:00* Test Item Value Reference Range Interpretation Comments GLUBED (test code = GLUBED) 178 mg/dL 74-106 H Performed by certified photogravure press operator at [facility] [id number] 21:39:00* Test Item Value Reference Range Interpretation Comments GLUBED (test code = GLUBED) 232 mg/dL 74-106 H Performed by certified photogravure press operator at [facility] [id number] 17:03:00* Test Item Value Reference Range Interpretation Comments GLUBED (test code = GLUBED) 168 mg/dL 74-106 H Performed by certified photogravure press operator at [facility] [id number] 11:11:00* Test Item Value Reference Range Interpretation Comments GLUBED (test code = GLUBED) 205 mg/dL 74-106 H Performed by certified photogravure press operator at [facility] BASIC METABOLIC [id number] 05:51:00* Test Item Value Reference Range Interpretation Comments SODIUM (test code = NA) 137 mmol/L 136-145 N POTASSIUM (test code = K) 3.5 mmol/L 3.5-5.1 N CHLORIDE (test code = CL) 102.0 mmol/L 98-107 N CARBON DIOXIDE (test code = CO2) 27.0 mmol/L 21-32 N ANION GAP (test code = GAP) 11.5 10-20 N GLUCOSE (test code = GLU) 140 mg/dL 74-106 H BLOOD UREA NITROGEN (test code = BUN) 10 mg/dL 7-18 N GLOMERULAR FILTRATION RATE (test code = GFR) > 60 mL/min >=60 Estimated GFR by using Modified MDRD formula.Chronic kidney disease is defined as either kidney damageor GFR <60 mL/min/1.73 m2 for >3 months. CREATININE (test code = CREAT) 0.70 mg/dL 0.7-1.3 N BUN/CREATININE RATIO (test code = BUN/CREA) 14.8 10-20 N CALCIUM (test code = CA) 8.1 mg/dL 8.5-10.1 L BASIC METABOLIC [id number] 05:46:00* Test Item Value Reference Range Interpretation Comments SODIUM (test code = NA) 137 mmol/L 136-145 N POTASSIUM (test code = K) 3.5 mmol/L 3.5-5.1 N CHLORIDE (test code = CL) 102.0 mmol/L 98-107 N CARBON DIOXIDE (test code = CO2) mmol/L 21-32 ANION GAP (test code = GAP) 10-20 GLUCOSE (test code = GLU) mg/dL 74-106 BLOOD UREA NITROGEN (test code = BUN) mg/dL 7-18 GLOMERULAR FILTRATION RATE (test code = GFR) mL/min >=60 CREATININE (test code = CREAT) mg/dL 0.7-1.3 BUN/CREATININE RATIO (test code = BUN/CREA) 10-20 CALCIUM (test code = CA) mg/dL 8.5-10.1 [id number] 05:38:00* Test Item Value Reference Range Interpretation Comments GLUBED (test code = GLUBED) 132 mg/dL 74-106 H Performed by certified photogravure press operator at [facility] CBC W/O [id number] 05:28:00* Test Item Value Reference Range Interpretation Comments WHITE BLOOD CELL (test code = WBC) 9.9 K/mm3 4.5-12.5 N RED BLOOD CELL (test code = RBC) 3.44 mill/mm3 4.0-5.8 L HEMOGLOBIN (test code = HGB) 9.7 gram/dL 13.0-17.5 L HEMATOCRIT (test code = HCT) 31.3 % 42.0-52.0 L MEAN CELL VOLUME (test code = MCV) 91.0 fL 80-98 N MEAN CELL HGB (test code = MCH) 28.2 picogram 27.0-33.0 N MEAN CELL HGB CONCETRATION (test code = MCHC) 31.0 gram/dL 33.0-36. 0 L RED CELL DISTRIBUTION WIDTH (test code = RDW) 12.9 % 11.6-16. 2 N PLATELET COUNT (test code = PLT) 440 K/mm3 150-450 N MEAN PLATELET VOLUME (test code = MPV) 9.1 fL 6.7-11.0 N [id number] 21:15:00* Test Item Value Reference Range Interpretation Comments GLUBED (test code = GLUBED) 203 mg/dL 74-106 H Performed by certified photogravure press operator at [facility] VANCOMYCIN [id number] 15:14:00* Test Item Value Reference Range Interpretation Comments VANCOMYCIN TROUGH (test code = VANCT) 18.0 ug/mL 10-20 N [id number] 12:22:00* Test Item Value Reference Range Interpretation Comments GLUBED (test code = GLUBED) 140 mg/dL 74-106 H Performed by certified photogravure press operator at [facility] BLOOD UREA [id number] 10:52:00* Test Item Value Reference Range Interpretation Comments BLOOD UREA NITROGEN (test code = BUN) 9 mg/dL 7-18 N [id number] 10:52:00* Test Item Value Reference Range Interpretation Comments CREATININE (test code = CREAT) 0.60 mg/dL 0.7-1.3 L [id number] 07:32:00* Test Item Value Reference Range Interpretation Comments GLUBED (test code = GLUBED) 139 mg/dL 74-106 H Performed by certified photogravure press operator at [facility] BLOOD UREA [id number] 06:01:00* Test Item Value Reference Range Interpretation Comments BLOOD UREA NITROGEN (test code = BUN) 9 mg/dL 7-18 N [id number] 06:01:00* Test Item Value Reference Range Interpretation Comments CREATINE (test code = CRTN) mg/dL 0.17-0.93 [id number] 22:30:00* Test Item Value Reference Range Interpretation Comments GLUBED (test code = GLUBED) 213 mg/dL 74-106 H Performed by certified photogravure press operator at [facility] [id number] 16:28:00* Test Item Value Reference Range Interpretation Comments GLUBED (test code = GLUBED) 192 mg/dL 74-106 H Performed by certified photogravure press operator at [facility] [id number] 11:39:00* Test Item Value Reference Range Interpretation Comments GLUBED (test code = GLUBED) 228 mg/dL 74-106 H Performed by certified photogravure press operator at [facility] BLOOD UREA [id number] 07:39:00* Test Item Value Reference Range Interpretation Comments BLOOD UREA NITROGEN (test code = BUN) 10 mg/dL 7-18 N [id number] 07:39:00* Test Item Value Reference Range Interpretation Comments CREATININE (test code = CREAT) 0.60 mg/dL 0.7-1.3 L [id number] 05:53:00* Test Item Value Reference Range Interpretation Comments GLUBED (test code = GLUBED) 138 mg/dL 74-106 H Performed by certified photogravure press operator at [facility] [id number] 21:05:00* Test Item Value Reference Range Interpretation Comments GLUBED (test code = GLUBED) 215 mg/dL 74-106 H Performed by certified photogravure press operator at [facility] [id number] 17:38:00* Test Item Value Reference Range Interpretation Comments GLUBED (test code = GLUBED) 182 mg/dL 74-106 H Performed by certified photogravure press operator at [facility] [id number] 12:41:00* Test Item Value Reference Range Interpretation Comments GLUBED (test code = GLUBED) 156 mg/dL 74-106 H Performed by certified photogravure press operator at [facility] [id number] 05:05:00* Test Item Value Reference Range Interpretation Comments GLUBED (test code = GLUBED) 128 mg/dL 74-106 H Performed by certified photogravure press operator at [facility] BASIC METABOLIC [id number] 02:58:00* Test Item Value Reference Range Interpretation Comments SODIUM (test code = NA) 143 mmol/L 136-145 RESU LT VERIFIED BY REPEAT ANALYSIS POTASSIUM (test code = K) 3.9 mmol/L 3.5-5.1 N CHLORIDE (test code = CL) 109.0 mmol/L 98-107 H CARBON DIOXIDE (test code = CO2) 26.0 mmol/L 21-32 N ANION GAP (test code = GAP) 11.9 10-20 N GLUCOSE (test code = GLU) 126 mg/dL 74-106 H BLOOD UREA NITROGEN (test code = BUN) 12 mg/dL 7-18 N GLOMERULAR FILTRATION RATE (test code = GFR) > 60 mL/min >=60 Estimated GFR by using Modified MDRD formula.Chronic kidney disease is defined as either kidney damageor GFR <60 mL/min/1.73 m2 for >3 months. CREATININE (test code = CREAT) 0.60 mg/dL 0.7-1.3 L BUN/CREATININE RATIO (test code = BUN/CREA) 20.0 10-20 N CALCIUM (test code = CA) 7.5 mg/dL 8.5-10.1 L BASIC METABOLIC [id number] 02:57:00* Test Item Value Reference Range Interpretation Comments SODIUM (test code = NA) mmol/L 136-145 POTASSIUM (test code = K) mmol/L 3.5-5.1 CHLORIDE (test code = CL) mmol/L 98-107 CARBON DIOXIDE (test code = CO2) 26.0 mmol/L 21-32 N ANION GAP (test code = GAP) 10-20 GLUCOSE (test code = GLU) 126 mg/dL 74-106 H BLOOD UREA NITROGEN (test code = BUN) 12 mg/dL 7-18 N GLOMERULAR FILTRATION RATE (test code = GFR) > 60 mL/min >=60 Estimated GFR by using Modified MDRD formula.Chronic kidney disease is defined as either kidney damageor GFR <60 mL/min/1.73 m2 for >3 months. CREATININE (test code = CREAT) 0.60 mg/dL 0.7-1.3 L BUN/CREATININE RATIO (test code = BUN/CREA) 20.0 10-20 N CALCIUM (test code = CA) mg/dL 8.5-10.1 [id number] 02:54:00* Test Item Value Reference Range Interpretation Comments VANCOMYCIN (test code = VANCO) 13.9 UG/ML 5.0-45.0 N [id number] 21:44:00* Test Item Value Reference Range Interpretation Comments GLUBED (test code = GLUBED) 201 mg/dL 74-106 H Performed by certified photogravure press operator at [facility] VANCOMYCIN [id number] 17:37:00* Test Item Value Reference Range Interpretation Comments VANCOMYCIN TROUGH (test code = VANCT) 26.2 ug/mL 10-20 H COMMENTS TO WIRE BENDER: TO BE DRAW AT [id number] 17:31:00* Test Item Value Reference Range Interpretation Comments GLUBED (test code = GLUBED) 281 mg/dL 74-106 H Performed by certified photogravure press operator at [facility] CALCULUS (STONE) [id number] 14:58:00* Test Item Value Reference Range Interpretation Comments SOURCE OF STONE (test code = STONESRC) BLADDER STONE ANALYSIS COMMENT (test code = STONECOM) NO NIDUS VISUALIZED N IDUS Color: Brown Size : Specimens received as a mixture of whole stones and fragments. Composition: Percentage (Represents the % composition) Ca oxalate dihydrate 02 % Ca oxalate monohydr. 88 % Calcium phosphate 10 % Surface Crystals Comment: Calcium oxalate dihydrate Test performed at: [facility] [address] STONE ANALYSIS (test code = STONE) () Photograph will follow under separate cover. WEIGHT OF STONE (test code = STONEWT) 274.0 mg () Test performed at: [facility] [address] SPECIMEN COMMENTS: BLADDER STONESCOMMENTS TO WIRE BENDER: COLLECTED DURING SURG ERYCALCULUS (STONE) [id number] 14:15:00* Test Item Value Reference Range Interpretation Comments SOURCE OF STONE (test code = STONESRC) STONE ANALYSIS COMMENT (test code = STONECOM) NIDUS STONE ANALYSIS (test code = STONE) () Photograph will follow under separate cover. WEIGHT OF STONE (test code = STONEWT) 274.0 mg () Test performed at: [facility] [id number] [place] [address] SPECIMEN COMMENTS: BLADDER STONESCOMMENTS TO WIRE BENDER: COLLECTED DURING SURG [id number] 12:17:00* Test Item Value Reference Range Interpretation Comments GLUBED (test code = GLUBED) 236 mg/dL 74-106 H Performed by certified photogravure press operator at [facility] CBC W/MANUAL [id number] 08:10:00* Test Item Value Reference Range Interpretation Comments WHITE BLOOD CELL (test code = WBC) 11.3 K/mm3 4.5-12.5 N RED BLOOD CELL (test code = RBC) 3.85 mill/mm3 4.0-5.8 L HEMOGLOBIN (test code = HGB) 10.8 gram/dL 13.0-17.5 L HEMATOCRIT (test code = HCT) 33.8 % 42.0-52.0 L MEAN CELL VOLUME (test code = MCV) 87.8 fL 80-98 N MEAN CELL HGB (test code = MCH) 28.1 picogram 27.0-33.0 N MEAN CELL HGB CONCETRATION (test code = MCHC) 32.0 gram/dL 33.0-36. 0 L RED CELL DISTRIBUTION WIDTH (test code = RDW) 12.4 % 11.6-16. 2 N RED CELL DISTRIBUTION WIDTH SD (test code = RDW-SD) 39.1 fL 37 .0-51.0 N PLATELET COUNT (test code = PLT) 469 K/mm3 150-450 H MEAN PLATELET VOLUME (test code = MPV) 9.1 fL 6.7-11.0 N IMMATURE GRANULOCYTE % (test code = IG%) 5.8 % 0.0-5.0 H "The appearance of immature granulocytes (myelocytes,pro-myelocytes, meta-myelocytes) in the peripheral blood ofnon- individuals can indicate a response toinfection, inflammation, or other stimulus to the bonemarrow" NUCLEATED RBC % (test code = NRBC%) 0.0 % 0-0 N NEUTROPHIL # (test code = NT#) 8.52 K/mm3 1.8-7.7 H IMMATURE GRANULOCYTE # (test code = IG#) 0.66 x10 3/uL 0-0.03 H LYMPHOCYTE # (test code = LY#) 1.27 K/mm3 1.0-5.0 N MONOCYTE # (test code = MO#) 0.79 K/mm3 0-0.8 N EOSINOPHIL # (test code = EO#) 0.00 K/mm3 0.0-0.5 N BASOPHIL # (test code = BA#) 0.07 K/mm3 0.0-0.2 N NUCLEATED RBC # (test code = NRBC#) 0.00 K/mm3 0.0-0.1 N MANUAL DIFF REQUIRED (test code = MDIFF) YES STAIN ACCEPTABILITY (test code = STN ACCEPTABLE) STAIN ACCEPTABLE TOTAL CELLS COUNTED (test code = TCC) 112 #CELLS SEGMENTED NEUTROPHILS (test code = SEG) 90.2 % 39-69 H BAND NEUTROPHIL (test code = BAND) 0 % 0-10 N LYMPHOCYTE (test code = LYMPH) 1.8 % 25-55 L REACTIVE LYMPH (test code = RELYMPH) 0.9 % MONOCYTE (test code = MON) 2.6 % 0-10 N EOSINOPHIL (test code = EOS) 0 % 0.0-5.0 N BASOPHIL (test code = BASO) 0 % 0-1.0 N METAMYELOCYTE (test code = META) 2.7 % 0-0 H MYELOCYTE (test code = MYELO) 1.8 % 0.0-0.0 H PROMYELOCYTE (test code = PROM) 0 % 0-0 N MORPHOLOGY COMMENT (test code = MOC) NORMAL PLATELET ESTIMATE (test code = PLTEST) INCREASED PLATELET MORPHOLOGY (test code = PLTMORPH) SIZE VARIABLE IMMATURE FORMS (test code = IMMAT) 0 % BASIC METABOLIC [id number] 07:07:00* Test Item Value Reference Range Interpretation Comments SODIUM (test code = NA) 138 mmol/L 136-145 N POTASSIUM (test code = K) 3.4 mmol/L 3.5-5.1 L CHLORIDE (test code = CL) 105.0 mmol/L 98-107 N CARBON DIOXIDE (test code = CO2) 25.0 mmol/L 21-32 N ANION GAP (test code = GAP) 11.4 10-20 N GLUCOSE (test code = GLU) 141 mg/dL 74-106 H BLOOD UREA NITROGEN (test code = BUN) 11 mg/dL 7-18 N GLOMERULAR FILTRATION RATE (test code = GFR) > 60 mL/min >=60 Estimated GFR by using Modified MDRD formula.Chronic kidney disease is defined as either kidney damageor GFR <60 mL/min/1.73 m2 for >3 months. CREATININE (test code = CREAT) 0.60 mg/dL 0.7-1.3 L BUN/CREATININE RATIO (test code = BUN/CREA) 18.3 10-20 N CALCIUM (test code = CA) 7.9 mg/dL 8.5-10.1 L CBC W/MANUAL [id number] 07:02:00* Test Item Value Reference Range Interpretation Comments WHITE BLOOD CELL (test code = WBC) 11.3 K/mm3 4.5-12.5 N RED BLOOD CELL (test code = RBC) 3.85 mill/mm3 4.0-5.8 L HEMOGLOBIN (test code = HGB) 10.8 gram/dL 13.0-17.5 L HEMATOCRIT (test code = HCT) 33.8 % 42.0-52.0 L MEAN CELL VOLUME (test code = MCV) 87.8 fL 80-98 N MEAN CELL HGB (test code = MCH) 28.1 picogram 27.0-33.0 N MEAN CELL HGB CONCETRATION (test code = MCHC) 32.0 gram/dL 33.0-36. 0 L RED CELL DISTRIBUTION WIDTH (test code = RDW) 12.4 % 11.6-16. 2 N RED CELL DISTRIBUTION WIDTH SD (test code = RDW-SD) 39.1 fL 37 .0-51.0 N PLATELET COUNT (test code = PLT) 469 K/mm3 150-450 H MEAN PLATELET VOLUME (test code = MPV) 9.1 fL 6.7-11.0 N IMMATURE GRANULOCYTE % (test code = IG%) 5.8 % 0.0-5.0 H "The appearance of immature granulocytes (myelocytes,pro-myelocytes, meta-myelocytes) in the peripheral blood ofnon- individuals can indicate a response toinfection, inflammation, or other stimulus to the bonemarrow" NUCLEATED RBC % (test code = NRBC%) 0.0 % 0-0 N NEUTROPHIL # (test code = NT#) 8.52 K/mm3 1.8-7.7 H IMMATURE GRANULOCYTE # (test code = IG#) 0.66 x10 3/uL 0-0.03 H LYMPHOCYTE # (test code = LY#) 1.27 K/mm3 1.0-5.0 N MONOCYTE # (test code = MO#) 0.79 K/mm3 0-0.8 N EOSINOPHIL # (test code = EO#) 0.00 K/mm3 0.0-0.5 N BASOPHIL # (test code = BA#) 0.07 K/mm3 0.0-0.2 N NUCLEATED RBC # (test code = NRBC#) 0.00 K/mm3 0.0-0.1 N MANUAL DIFF REQUIRED (test code = MDIFF) YES STAIN ACCEPTABILITY (test code = STN ACCEPTABLE) TOTAL CELLS COUNTED (test code = TCC) #CELLS SEGMENTED NEUTROPHILS (test code = SEG) % 39-69 LYMPHOCYTE (test code = LYMPH) % 25-55 MONOCYTE (test code = MON) % 0-10 EOSINOPHIL (test code = EOS) % 0.0-5.0 CAB[place]INGS (test code = CAB) MORPHOLOGY COMMENT (test code = MOC) PLATELET ESTIMATE (test code = PLTEST) PLATELET MORPHOLOGY (test code = PLTMORPH) CBC W/MANUAL [id number] 07:02:00* Test Item Value Reference Range Interpretation Comments WHITE BLOOD CELL (test code = WBC) 11.3 K/mm3 4.5-12.5 N RED BLOOD CELL (test code = RBC) 3.85 mill/mm3 4.0-5.8 L HEMOGLOBIN (test code = HGB) 10.8 gram/dL 13.0-17.5 L HEMATOCRIT (test code = HCT) 33.8 % 42.0-52.0 L MEAN CELL VOLUME (test code = MCV) 87.8 fL 80-98 N MEAN CELL HGB (test code = MCH) 28.1 picogram 27.0-33.0 N MEAN CELL HGB CONCETRATION (test code = MCHC) 32.0 gram/dL 33.0-36. 0 L RED CELL DISTRIBUTION WIDTH (test code = RDW) 12.4 % 11.6-16. 2 N RED CELL DISTRIBUTION WIDTH SD (test code = RDW-SD) 39.1 fL 37 .0-51.0 N PLATELET COUNT (test code = PLT) 469 K/mm3 150-450 H MEAN PLATELET VOLUME (test code = MPV) 9.1 fL 6.7-11.0 N IMMATURE GRANULOCYTE % (test code = IG%) 5.8 % 0.0-5.0 H "The appearance of immature granulocytes (myelocytes,pro-myelocytes, meta-myelocytes) in the peripheral blood ofnon- individuals can indicate a response toinfection, inflammation, or other stimulus to the bonemarrow" NUCLEATED RBC % (test code = NRBC%) 0.0 % 0-0 N NEUTROPHIL # (test code = NT#) 8.52 K/mm3 1.8-7.7 H IMMATURE GRANULOCYTE # (test code = IG#) 0.66 x10 3/uL 0-0.03 H LYMPHOCYTE # (test code = LY#) 1.27 K/mm3 1.0-5.0 N MONOCYTE # (test code = MO#) 0.79 K/mm3 0-0.8 N EOSINOPHIL # (test code = EO#) 0.00 K/mm3 0.0-0.5 N BASOPHIL # (test code = BA#) 0.07 K/mm3 0.0-0.2 N NUCLEATED RBC # (test code = NRBC#) 0.00 K/mm3 0.0-0.1 N MANUAL DIFF REQUIRED (test code = MDIFF) YES STAIN ACCEPTABILITY (test code = STN ACCEPTABLE) TOTAL CELLS COUNTED (test code = TCC) #CELLS SEGMENTED NEUTROPHILS (test code = SEG) % 39-69 LYMPHOCYTE (test code = LYMPH) % 25-55 MONOCYTE (test code = MON) % 0-10 EOSINOPHIL (test code = EOS) % 0.0-5.0 [place]INGS (test code = CAB) MORPHOLOGY COMMENT (test code = MOC) PLATELET ESTIMATE (test code = PLTEST) PLATELET MORPHOLOGY (test code = PLTMORPH) CBC W/MANUAL [id number] 07:02:00* Test Item Value Reference Range Interpretation Comments WHITE BLOOD CELL (test code = WBC) 11.3 K/mm3 4.5-12.5 N RED BLOOD CELL (test code = RBC) 3.85 mill/mm3 4.0-5.8 L HEMOGLOBIN (test code = HGB) 10.8 gram/dL 13.0-17.5 L HEMATOCRIT (test code = HCT) 33.8 % 42.0-52.0 L MEAN CELL VOLUME (test code = MCV) 87.8 fL 80-98 N MEAN CELL HGB (test code = MCH) 28.1 picogram 27.0-33.0 N MEAN CELL HGB CONCETRATION (test code = MCHC) 32.0 gram/dL 33.0-36. 0 L RED CELL DISTRIBUTION WIDTH (test code = RDW) 12.4 % 11.6-16. 2 N RED CELL DISTRIBUTION WIDTH SD (test code = RDW-SD) 39.1 fL 37 .0-51.0 N PLATELET COUNT (test code = PLT) 469 K/mm3 150-450 H MEAN PLATELET VOLUME (test code = MPV) 9.1 fL 6.7-11.0 N IMMATURE GRANULOCYTE % (test code = IG%) 5.8 % 0.0-5.0 H "The appearance of immature granulocytes (myelocytes,pro-myelocytes, meta-myelocytes) in the peripheral blood ofnon- individuals can indicate a response toinfection, inflammation, or other stimulus to the bonemarrow" NUCLEATED RBC % (test code = NRBC%) 0.0 % 0-0 N NEUTROPHIL # (test code = NT#) 8.52 K/mm3 1.8-7.7 H IMMATURE GRANULOCYTE # (test code = IG#) 0.66 x10 3/uL 0-0.03 H LYMPHOCYTE # (test code = LY#) 1.27 K/mm3 1.0-5.0 N MONOCYTE # (test code = MO#) 0.79 K/mm3 0-0.8 N EOSINOPHIL # (test code = EO#) 0.00 K/mm3 0.0-0.5 N BASOPHIL # (test code = BA#) 0.07 K/mm3 0.0-0.2 N NUCLEATED RBC # (test code = NRBC#) 0.00 K/mm3 0.0-0.1 N MANUAL DIFF REQUIRED (test code = MDIFF) YES STAIN ACCEPTABILITY (test code = STN ACCEPTABLE) TOTAL CELLS COUNTED (test code = TCC) #CELLS SEGMENTED NEUTROPHILS (test code = SEG) % 39-69 LYMPHOCYTE (test code = LYMPH) % 25-55 MONOCYTE (test code = MON) % 0-10 EOSINOPHIL (test code = EOS) % 0.0-5.0 MORPHOLOGY COMMENT (test code = MOC) PLATELET ESTIMATE (test code = PLTEST) PLATELET MORPHOLOGY (test code = PLTMORPH) CBC W/MANUAL [id number] 07:02:00* Test Item Value Reference Range Interpretation Comments WHITE BLOOD CELL (test code = WBC) 11.3 K/mm3 4.5-12.5 N RED BLOOD CELL (test code = RBC) 3.85 mill/mm3 4.0-5.8 L HEMOGLOBIN (test code = HGB) 10.8 gram/dL 13.0-17.5 L HEMATOCRIT (test code = HCT) 33.8 % 42.0-52.0 L MEAN CELL VOLUME (test code = MCV) 87.8 fL 80-98 N MEAN CELL HGB (test code = MCH) 28.1 picogram 27.0-33.0 N MEAN CELL HGB CONCETRATION (test code = MCHC) 32.0 gram/dL 33.0-36. 0 L RED CELL DISTRIBUTION WIDTH (test code = RDW) 12.4 % 11.6-16. 2 N RED CELL DISTRIBUTION WIDTH SD (test code = RDW-SD) 39.1 fL 37 .0-51.0 N PLATELET COUNT (test code = PLT) 469 K/mm3 150-450 H MEAN PLATELET VOLUME (test code = MPV) 9.1 fL 6.7-11.0 N IMMATURE GRANULOCYTE % (test code = IG%) 5.8 % 0.0-5.0 H "The appearance of immature granulocytes (myelocytes,pro-myelocytes, meta-myelocytes) in the peripheral blood ofnon- individuals can indicate a response toinfection, inflammation, or other stimulus to the bonemarrow" NUCLEATED RBC % (test code = NRBC%) 0.0 % 0-0 N NEUTROPHIL # (test code = NT#) 8.52 K/mm3 1.8-7.7 H IMMATURE GRANULOCYTE # (test code = IG#) 0.66 x10 3/uL 0-0.03 H LYMPHOCYTE # (test code = LY#) 1.27 K/mm3 1.0-5.0 N MONOCYTE # (test code = MO#) 0.79 K/mm3 0-0.8 N EOSINOPHIL # (test code = EO#) 0.00 K/mm3 0.0-0.5 N BASOPHIL # (test code = BA#) 0.07 K/mm3 0.0-0.2 N NUCLEATED RBC # (test code = NRBC#) 0.00 K/mm3 0.0-0.1 N MANUAL DIFF REQUIRED (test code = MDIFF) YES STAIN ACCEPTABILITY (test code = STN ACCEPTABLE) TOTAL CELLS COUNTED (test code = TCC) #CELLS SEGMENTED NEUTROPHILS (test code = SEG) % 39-69 LYMPHOCYTE (test code = LYMPH) % 25-55 MONOCYTE (test code = MON) % 0-10 MORPHOLOGY COMMENT (test code = MOC) PLATELET ESTIMATE (test code = PLTEST) PLATELET MORPHOLOGY (test code = PLTMORPH) CBC W/MANUAL [id number] 07:02:00* Test Item Value Reference Range Interpretation Comments WHITE BLOOD CELL (test code = WBC) 11.3 K/mm3 4.5-12.5 N RED BLOOD CELL (test code = RBC) 3.85 mill/mm3 4.0-5.8 L HEMOGLOBIN (test code = HGB) 10.8 gram/dL 13.0-17.5 L HEMATOCRIT (test code = HCT) 33.8 % 42.0-52.0 L MEAN CELL VOLUME (test code = MCV) 87.8 fL 80-98 N MEAN CELL HGB (test code = MCH) 28.1 picogram 27.0-33.0 N MEAN CELL HGB CONCETRATION (test code = MCHC) 32.0 gram/dL 33.0-36. 0 L RED CELL DISTRIBUTION WIDTH (test code = RDW) 12.4 % 11.6-16. 2 N RED CELL DISTRIBUTION WIDTH SD (test code = RDW-SD) 39.1 fL 37 .0-51.0 N PLATELET COUNT (test code = PLT) 469 K/mm3 150-450 H MEAN PLATELET VOLUME (test code = MPV) 9.1 fL 6.7-11.0 N IMMATURE GRANULOCYTE % (test code = IG%) 5.8 % 0.0-5.0 H "The appearance of immature granulocytes (myelocytes,pro-myelocytes, meta-myelocytes) in the peripheral blood ofnon- individuals can indicate a response toinfection, inflammation, or other stimulus to the bonemarrow" NUCLEATED RBC % (test code = NRBC%) 0.0 % 0-0 N NEUTROPHIL # (test code = NT#) 8.52 K/mm3 1.8-7.7 H IMMATURE GRANULOCYTE # (test code = IG#) 0.66 x10 3/uL 0-0.03 H LYMPHOCYTE # (test code = LY#) 1.27 K/mm3 1.0-5.0 N MONOCYTE # (test code = MO#) 0.79 K/mm3 0-0.8 N EOSINOPHIL # (test code = EO#) 0.00 K/mm3 0.0-0.5 N BASOPHIL # (test code = BA#) 0.07 K/mm3 0.0-0.2 N NUCLEATED RBC # (test code = NRBC#) 0.00 K/mm3 0.0-0.1 N MANUAL DIFF REQUIRED (test code = MDIFF) YES STAIN ACCEPTABILITY (test code = STN ACCEPTABLE) TOTAL CELLS COUNTED (test code = TCC) #CELLS SEGMENTED NEUTROPHILS (test code = SEG) % 39-69 LYMPHOCYTE (test code = LYMPH) % 25-55 MONOCYTE (test code = MON) % 0-10 EOSINOPHIL (test code = EOS) % 0.0-5.0 CABOT RINGS (test code = CAB) MORPHOLOGY COMMENT (test code = MOC) PLATELET ESTIMATE (test code = PLTEST) PLATELET MORPHOLOGY (test code = PLTMORPH) BASIC METABOLIC [id number] 07:00:00* Test Item Value Reference Range Interpretation Comments SODIUM (test code = NA) 138 mmol/L 136-145 N POTASSIUM (test code = K) 3.4 mmol/L 3.5-5.1 L CHLORIDE (test code = CL) 105.0 mmol/L 98-107 N CARBON DIOXIDE (test code = CO2) mmol/L 21-32 ANION GAP (test code = GAP) 10-20 GLUCOSE (test code = GLU) mg/dL 74-106 BLOOD UREA NITROGEN (test code = BUN) mg/dL 7-18 GLOMERULAR FILTRATION RATE (test code = GFR) mL/min >=60 CREATININE (test code = CREAT) mg/dL 0.7-1.3 BUN/CREATININE RATIO (test code = BUN/CREA) 10-20 CALCIUM (test code = CA) mg/dL 8.5-10.1 [id number] 06:32:00* Test Item Value Reference Range Interpretation Comments GLUBED (test code = GLUBED) 146 mg/dL 74-106 H Performed by certified photogravure press operator at [facility] [id number] 20:56:00* Test Item Value Reference Range Interpretation Comments GLUBED (test code = GLUBED) 227 mg/dL 74-106 H Performed by certified photogravure press operator at [facility] CBC W/MANUAL [id number] 08:20:00* Test Item Value Reference Range Interpretation Comments WHITE BLOOD CELL (test code = WBC) 10.8 K/mm3 4.5-12.5 N RED BLOOD CELL (test code = RBC) 4.42 mill/mm3 4.0-5.8 N HEMOGLOBIN (test code = HGB) 12.6 gram/dL 13.0-17.5 L HEMATOCRIT (test code = HCT) 37.8 % 42.0-52.0 L MEAN CELL VOLUME (test code = MCV) 85.5 fL 80-98 N MEAN CELL HGB (test code = MCH) 28.5 picogram 27.0-33.0 N MEAN CELL HGB CONCETRATION (test code = MCHC) 33.3 gram/dL 33.0-36. 0 N RED CELL DISTRIBUTION WIDTH (test code = RDW) 12.0 % 11.6-16. 2 N RED CELL DISTRIBUTION WIDTH SD (test code = RDW-SD) 36.9 fL 37 .0-51.0 L PLATELET COUNT (test code = PLT) 445 K/mm3 150-450 RESULT VERIFIED BY REPEAT ANALYSIS MEAN PLATELET VOLUME (test code = MPV) 9.1 fL 6.7-11.0 N IMMATURE GRANULOCYTE % (test code = IG%) 7.7 % 0.0-5.0 H "The appearance of immature granulocytes (myelocytes,pro-myelocytes, meta-myelocytes) in the peripheral blood ofnon- individuals can indicate a response toinfection, inflammation, or other stimulus to the bon[place]" NUCLEATED RBC % (test code = NRBC%) 0.0 % 0-0 N NEUTROPHIL # (test code = NT#) 8.01 K/mm3 1.8-7.7 H IMMATURE GRANULOCYTE # (test code = IG#) 0.83 x10 3/uL 0-0.03 H LYMPHOCYTE # (test code = LY#) 1.27 K/mm3 1.0-5.0 N MONOCYTE # (test code = MO#) 0.69 K/mm3 0-0.8 N EOSINOPHIL # (test code = EO#) 0.01 K/mm3 0.0-0.5 N BASOPHIL # (test code = BA#) 0.02 K/mm3 0.0-0.2 N NUCLEATED RBC # (test code = NRBC#) 0.00 K/mm3 0.0-0.1 N MANUAL DIFF REQUIRED (test code = MDIFF) YES STAIN ACCEPTABILITY (test code = STN ACCEPTABLE) STAIN ACCEPTABLE TOTAL CELLS COUNTED (test code = TCC) 100 #CELLS SEGMENTED NEUTROPHILS (test code = SEG) 82 % 39-69 H BAND NEUTROPHIL (test code = BAND) 1 % 0-10 N LYMPHOCYTE (test code = LYMPH) 9 % 25-55 L MONOCYTE (test code = MON) 7 % 0-10 N MYELOCYTE (test code = MYELO) 1 % 0.0-0.0 H MORPHOLOGY COMMENT (test code = MOC) NORMAL PLATELET ESTIMATE (test code = PLTEST) ADEQUATE PLATELET MORPHOLOGY (test code = PLTMORPH) NORMAL BASIC METABOLIC [id number] 07:41:00* Test Item Value Reference Range Interpretation Comments SODIUM (test code = NA) 139 mmol/L 136-145 N POTASSIUM (test code = K) 3.4 mmol/L 3.5-5.1 L CHLORIDE (test code = CL) 104.0 mmol/L 98-107 N CARBON DIOXIDE (test code = CO2) 25.0 mmol/L 21-32 N ANION GAP (test code = GAP) 13.4 10-20 N GLUCOSE (test code = GLU) 150 mg/dL 74-106 H BLOOD UREA NITROGEN (test code = BUN) 11 mg/dL 7-18 N GLOMERULAR FILTRATION RATE (test code = GFR) > 60 mL/min >=60 Estimated GFR by using Modified MDRD formula.Chronic kidney disease is defined as either kidney damageor GFR <60 mL/min/1.73 m2 for >3 months. CREATININE (test code = CREAT) 0.60 mg/dL 0.7-1.3 L BUN/CREATININE RATIO (test code = BUN/CREA) 18.3 10-20 N CALCIUM (test code = CA) 7.8 mg/dL 8.5-10.1 L BASIC METABOLIC [id number] 07:38:00* Test Item Value Reference Range Interpretation Comments SODIUM (test code = NA) 139 mmol/L 136-145 N POTASSIUM (test code = K) 3.4 mmol/L 3.5-5.1 L CHLORIDE (test code = CL) 104.0 mmol/L 98-107 N CARBON DIOXIDE (test code = CO2) mmol/L 21-32 ANION GAP (test code = GAP) 10-20 GLUCOSE (test code = GLU) mg/dL 74-106 BLOOD UREA NITROGEN (test code = BUN) mg/dL 7-18 GLOMERULAR FILTRATION RATE (test code = GFR) mL/min >=60 CREATININE (test code = CREAT) mg/dL 0.7-1.3 BUN/CREATININE RATIO (test code = BUN/CREA) 10-20 CALCIUM (test code = CA) mg/dL 8.5-10.1 CBC W/MANUAL [id number] 07:13:00* Test Item Value Reference Range Interpretation Comments WHITE BLOOD CELL (test code = WBC) 10.8 K/mm3 4.5-12.5 N RED BLOOD CELL (test code = RBC) 4.42 mill/mm3 4.0-5.8 N HEMOGLOBIN (test code = HGB) 12.6 gram/dL 13.0-17.5 L HEMATOCRIT (test code = HCT) 37.8 % 42.0-52.0 L MEAN CELL VOLUME (test code = MCV) 85.5 fL 80-98 N MEAN CELL HGB (test code = MCH) 28.5 picogram 27.0-33.0 N MEAN CELL HGB CONCETRATION (test code = MCHC) 33.3 gram/dL 33.0-36. 0 N RED CELL DISTRIBUTION WIDTH (test code = RDW) 12.0 % 11.6-16. 2 N RED CELL DISTRIBUTION WIDTH SD (test code = RDW-SD) 36.9 fL 37 .0-51.0 L PLATELET COUNT (test code = PLT) 445 K/mm3 150-450 RESULT VERIFIED BY REPEAT ANALYSIS MEAN PLATELET VOLUME (test code = MPV) 9.1 fL 6.7-11.0 N IMMATURE GRANULOCYTE % (test code = IG%) 7.7 % 0.0-5.0 H "The appearance of immature granulocytes (myelocytes,pro-myelocytes, meta-myelocytes) in the peripheral blood ofnon- individuals can indicate a response toinfection, inflammation, or other stimulus to the [place]" NUCLEATED RBC % (test code = NRBC%) 0.0 % 0-0 N NEUTROPHIL # (test code = NT#) 8.01 K/mm3 1.8-7.7 H IMMATURE GRANULOCYTE # (test code = IG#) 0.83 x10 3/uL 0-0.03 H LYMPHOCYTE # (test code = LY#) 1.27 K/mm3 1.0-5.0 N MONOCYTE # (test code = MO#) 0.69 K/mm3 0-0.8 N EOSINOPHIL # (test code = EO#) 0.01 K/mm3 0.0-0.5 N BASOPHIL # (test code = BA#) 0.02 K/mm3 0.0-0.2 N NUCLEATED RBC # (test code = NRBC#) 0.00 K/mm3 0.0-0.1 N MANUAL DIFF REQUIRED (test code = MDIFF) YES STAIN ACCEPTABILITY (test code = STN ACCEPTABLE) TOTAL CELLS COUNTED (test code = TCC) #CELLS SEGMENTED NEUTROPHILS (test code = SEG) % 39-69 LYMPHOCYTE (test code = LYMPH) % 25-55 MONOCYTE (test code = MON) % 0-10 EOSINOPHIL (test code = EOS) % 0.0-5.0 CABOT RINGS (test code = CAB) MORPHOLOGY COMMENT (test code = MOC) PLATELET ESTIMATE (test code = PLTEST) PLATELET MORPHOLOGY (test code = PLTMORPH) CBC W/MANUAL [id number] 07:13:00* Test Item Value Reference Range Interpretation Comments WHITE BLOOD CELL (test code = WBC) 10.8 K/mm3 4.5-12.5 N RED BLOOD CELL (test code = RBC) 4.42 mill/mm3 4.0-5.8 N HEMOGLOBIN (test code = HGB) 12.6 gram/dL 13.0-17.5 L HEMATOCRIT (test code = HCT) 37.8 % 42.0-52.0 L MEAN CELL VOLUME (test code = MCV) 85.5 fL 80-98 N MEAN CELL HGB (test code = MCH) 28.5 picogram 27.0-33.0 N MEAN CELL HGB CONCETRATION (test code = MCHC) 33.3 gram/dL 33.0-36. 0 N RED CELL DISTRIBUTION WIDTH (test code = RDW) 12.0 % 11.6-16. 2 N RED CELL DISTRIBUTION WIDTH SD (test code = RDW-SD) 36.9 fL 37 .0-51.0 L PLATELET COUNT (test code = PLT) 445 K/mm3 150-450 RESULT VERIFIED BY REPEAT ANALYSIS MEAN PLATELET VOLUME (test code = MPV) 9.1 fL 6.7-11.0 N IMMATURE GRANULOCYTE % (test code = IG%) 7.7 % 0.0-5.0 H "The appearance of immature granulocytes (myelocytes,pro-myelocytes, meta-myelocytes) in the peripheral blood ofnon- individuals can indicate a response toinfection, inflammation, or other stimulus to the [place]" NUCLEATED RBC % (test code = NRBC%) 0.0 % 0-0 N NEUTROPHIL # (test code = NT#) 8.01 K/mm3 1.8-7.7 H IMMATURE GRANULOCYTE # (test code = IG#) 0.83 x10 3/uL 0-0.03 H LYMPHOCYTE # (test code = LY#) 1.27 K/mm3 1.0-5.0 N MONOCYTE # (test code = MO#) 0.69 K/mm3 0-0.8 N EOSINOPHIL # (test code = EO#) 0.01 K/mm3 0.0-0.5 N BASOPHIL # (test code = BA#) 0.02 K/mm3 0.0-0.2 N NUCLEATED RBC # (test code = NRBC#) 0.00 K/mm3 0.0-0.1 N MANUAL DIFF REQUIRED (test code = MDIFF) YES STAIN ACCEPTABILITY (test code = STN ACCEPTABLE) TOTAL CELLS COUNTED (test code = TCC) #CELLS SEGMENTED NEUTROPHILS (test code = SEG) % 39-69 LYMPHOCYTE (test code = LYMPH) % 25-55 MONOCYTE (test code = MON) % 0-10 EOSINOPHIL (test code = EOS) % 0.0-5.0 CABOT RINGS (test code = CAB) MORPHOLOGY COMMENT (test code = MOC) PLATELET ESTIMATE (test code = PLTEST) PLATELET MORPHOLOGY (test code = PLTMORPH) CBC W/MANUAL [id number] 07:13:00* Test Item Value Reference Range Interpretation Comments WHITE BLOOD CELL (test code = WBC) 10.8 K/mm3 4.5-12.5 N RED BLOOD CELL (test code = RBC) 4.42 mill/mm3 4.0-5.8 N HEMOGLOBIN (test code = HGB) 12.6 gram/dL 13.0-17.5 L HEMATOCRIT (test code = HCT) 37.8 % 42.0-52.0 L MEAN CELL VOLUME (test code = MCV) 85.5 fL 80-98 N MEAN CELL HGB (test code = MCH) 28.5 picogram 27.0-33.0 N MEAN CELL HGB CONCETRATION (test code = MCHC) 33.3 gram/dL 33.0-36. 0 N RED CELL DISTRIBUTION WIDTH (test code = RDW) 12.0 % 11.6-16. 2 N RED CELL DISTRIBUTION WIDTH SD (test code = RDW-SD) 36.9 fL 37 .0-51.0 L PLATELET COUNT (test code = PLT) 445 K/mm3 150-450 RESULT VERIFIED BY REPEAT ANALYSIS MEAN PLATELET VOLUME (test code = MPV) 9.1 fL 6.7-11.0 N IMMATURE GRANULOCYTE % (test code = IG%) 7.7 % 0.0-5.0 H "The appearance of immature granulocytes (myelocytes,pro-myelocytes, meta-myelocytes) in the peripheral blood ofnon- individuals can indicate a response toinfection, inflammation, or other stimulus to the bon[place]" NUCLEATED RBC % (test code = NRBC%) 0.0 % 0-0 N NEUTROPHIL # (test code = NT#) 8.01 K/mm3 1.8-7.7 H IMMATURE GRANULOCYTE # (test code = IG#) 0.83 x10 3/uL 0-0.03 H LYMPHOCYTE # (test code = LY#) 1.27 K/mm3 1.0-5.0 N MONOCYTE # (test code = MO#) 0.69 K/mm3 0-0.8 N EOSINOPHIL # (test code = EO#) 0.01 K/mm3 0.0-0.5 N BASOPHIL # (test code = BA#) 0.02 K/mm3 0.0-0.2 N NUCLEATED RBC # (test code = NRBC#) 0.00 K/mm3 0.0-0.1 N MANUAL DIFF REQUIRED (test code = MDIFF) YES STAIN ACCEPTABILITY (test code = STN ACCEPTABLE) TOTAL CELLS COUNTED (test code = TCC) #CELLS SEGMENTED NEUTROPHILS (test code = SEG) % 39-69 LYMPHOCYTE (test code = LYMPH) % 25-55 MONOCYTE (test code = MON) % 0-10 EOSINOPHIL (test code = EOS) % 0.0-5.0 MORPHOLOGY COMMENT (test code = MOC) PLATELET ESTIMATE (test code = PLTEST) PLATELET MORPHOLOGY (test code = PLTMORPH) CBC W/MANUAL [id number] 07:13:00* Test Item Value Reference Range Interpretation Comments WHITE BLOOD CELL (test code = WBC) 10.8 K/mm3 4.5-12.5 N RED BLOOD CELL (test code = RBC) 4.42 mill/mm3 4.0-5.8 N HEMOGLOBIN (test code = HGB) 12.6 gram/dL 13.0-17.5 L HEMATOCRIT (test code = HCT) 37.8 % 42.0-52.0 L MEAN CELL VOLUME (test code = MCV) 85.5 fL 80-98 N MEAN CELL HGB (test code = MCH) 28.5 picogram 27.0-33.0 N MEAN CELL HGB CONCETRATION (test code = MCHC) 33.3 gram/dL 33.0-36. 0 N RED CELL DISTRIBUTION WIDTH (test code = RDW) 12.0 % 11.6-16. 2 N RED CELL DISTRIBUTION WIDTH SD (test code = RDW-SD) 36.9 fL 37 .0-51.0 L PLATELET COUNT (test code = PLT) 445 K/mm3 150-450 RESULT VERIFIED BY REPEAT ANALYSIS MEAN PLATELET VOLUME (test code = MPV) 9.1 fL 6.7-11.0 N IMMATURE GRANULOCYTE % (test code = IG%) 7.7 % 0.0-5.0 H "The appearance of immature granulocytes (myelocytes,pro-myelocytes, meta-myelocytes) in the peripheral blood ofnon- individuals can indicate a response toinfection, inflammation, or other stimulus to the bon[place]" NUCLEATED RBC % (test code = NRBC%) 0.0 % 0-0 N NEUTROPHIL # (test code = NT#) 8.01 K/mm3 1.8-7.7 H IMMATURE GRANULOCYTE # (test code = IG#) 0.83 x10 3/uL 0-0.03 H LYMPHOCYTE # (test code = LY#) 1.27 K/mm3 1.0-5.0 N MONOCYTE # (test code = MO#) 0.69 K/mm3 0-0.8 N EOSINOPHIL # (test code = EO#) 0.01 K/mm3 0.0-0.5 N BASOPHIL # (test code = BA#) 0.02 K/mm3 0.0-0.2 N NUCLEATED RBC # (test code = NRBC#) 0.00 K/mm3 0.0-0.1 N MANUAL DIFF REQUIRED (test code = MDIFF) YES STAIN ACCEPTABILITY (test code = STN ACCEPTABLE) TOTAL CELLS COUNTED (test code = TCC) #CELLS SEGMENTED NEUTROPHILS (test code = SEG) % 39-69 LYMPHOCYTE (test code = LYMPH) % 25-55 MONOCYTE (test code = MON) % 0-10 MORPHOLOGY COMMENT (test code = MOC) PLATELET ESTIMATE (test code = PLTEST) PLATELET MORPHOLOGY (test code = PLTMORPH) CBC W/MANUAL [id number] 07:13:00* Test Item Value Reference Range Interpretation Comments WHITE BLOOD CELL (test code = WBC) 10.8 K/mm3 4.5-12.5 N RED BLOOD CELL (test code = RBC) 4.42 mill/mm3 4.0-5.8 N HEMOGLOBIN (test code = HGB) 12.6 gram/dL 13.0-17.5 L HEMATOCRIT (test code = HCT) 37.8 % 42.0-52.0 L MEAN CELL VOLUME (test code = MCV) 85.5 fL 80-98 N MEAN CELL HGB (test code = MCH) 28.5 picogram 27.0-33.0 N MEAN CELL HGB CONCETRATION (test code = MCHC) 33.3 gram/dL 33.0-36. 0 N RED CELL DISTRIBUTION WIDTH (test code = RDW) 12.0 % 11.6-16. 2 N RED CELL DISTRIBUTION WIDTH SD (test code = RDW-SD) 36.9 fL 37 .0-51.0 L PLATELET COUNT (test code = PLT) 445 K/mm3 150-450 RESULT VERIFIED BY REPEAT ANALYSIS MEAN PLATELET VOLUME (test code = MPV) 9.1 fL 6.7-11.0 N IMMATURE GRANULOCYTE % (test code = IG%) 7.7 % 0.0-5.0 H "The appearance of immature granulocytes (myelocytes,pro-myelocytes, meta-myelocytes) in the peripheral blood ofnon- individuals can indicate a response toinfection, inflammation, or other stimulus to the bon[place]" NUCLEATED RBC % (test code = NRBC%) 0.0 % 0-0 N NEUTROPHIL # (test code = NT#) 8.01 K/mm3 1.8-7.7 H IMMATURE GRANULOCYTE # (test code = IG#) 0.83 x10 3/uL 0-0.03 H LYMPHOCYTE # (test code = LY#) 1.27 K/mm3 1.0-5.0 N MONOCYTE # (test code = MO#) 0.69 K/mm3 0-0.8 N EOSINOPHIL # (test code = EO#) 0.01 K/mm3 0.0-0.5 N BASOPHIL # (test code = BA#) 0.02 K/mm3 0.0-0.2 N NUCLEATED RBC # (test code = NRBC#) 0.00 K/mm3 0.0-0.1 N MANUAL DIFF REQUIRED (test code = MDIFF) YES STAIN ACCEPTABILITY (test code = STN ACCEPTABLE) TOTAL CELLS COUNTED (test code = TCC) #CELLS SEGMENTED NEUTROPHILS (test code = SEG) % 39-69 LYMPHOCYTE (test code = LYMPH) % 25-55 MONOCYTE (test code = MON) % 0-10 EOSINOPHIL (test code = EOS) % 0.0-5.0 CABOT RINGS (test code = CAB) MORPHOLOGY COMMENT (test code = MOC) PLATELET ESTIMATE (test code = PLTEST) PLATELET MORPHOLOGY (test code = PLTMORPH) [id number] 20:50:00* Test Item Value Reference Range Interpretation Comments GLUBED (test code = GLUBED) 237 mg/dL 74-106 H [facility] VANCOMYCIN [id number] 17:42:00* Test Item Value Reference Range Interpretation Comments VANCOMYCIN TROUGH (test code = VANCT) 15.1 ug/mL 10-20 N [id number] 16:22:00* Test Item Value Reference Range Interpretation Comments GLUBED (test code = GLUBED) 184 mg/dL 74-106 H Performed by certified photogravure press operator at [facility] [id number] 16:05:00* Test Item Value Reference Range Interpretation Comments GLUBED (test code = GLUBED) 152 mg/dL 74-106 H Performed by certified photogravure press operator at [facility] [id number] 08:13:00* Test Item Value Reference Range Interpretation Comments GLUBED (test code = GLUBED) 129 mg/dL 74-106 H Performed by certified photogravure press operator at [facility] CBC W/MANUAL [id number] 07:04:00* Test Item Value Reference Range Interpretation Comments WHITE BLOOD CELL (test code = WBC) 10.2 K/mm3 4.5-12.5 N RED BLOOD CELL (test code = RBC) 4.88 mill/mm3 4.0-5.8 N HEMOGLOBIN (test code = HGB) 14.2 gram/dL 13.0-17.5 N HEMATOCRIT (test code = HCT) 42.5 % 42.0-52.0 N MEAN CELL VOLUME (test code = MCV) 87.1 fL 80-98 N MEAN CELL HGB (test code = MCH) 29.1 picogram 27.0-33.0 N MEAN CELL HGB CONCETRATION (test code = MCHC) 33.4 gram/dL 33.0-36. 0 N RED CELL DISTRIBUTION WIDTH (test code = RDW) 12.1 % 11.6-16. 2 N RED CELL DISTRIBUTION WIDTH SD (test code = RDW-SD) 38.4 fL 37 .0-51.0 N PLATELET COUNT (test code = PLT) 383 K/mm3 150-450 N MEAN PLATELET VOLUME (test code = MPV) 9.1 fL 6.7-11.0 N IMMATURE GRANULOCYTE % (test code = IG%) 6.9 % 0.0-5.0 H "The appearance of immature granulocytes (myelocytes,pro-myelocytes, meta-myelocytes) in the peripheral blood ofnon- individuals can indicate a response toinfection, inflammation, or other stimulus to the bon[place]" NUCLEATED RBC % (test code = NRBC%) 0.0 % 0-0 N NEUTROPHIL # (test code = NT#) 7.68 K/mm3 1.8-7.7 N IMMATURE GRANULOCYTE # (test code = IG#) 0.71 x10 3/uL 0-0.03 H LYMPHOCYTE # (test code = LY#) 1.12 K/mm3 1.0-5.0 N MONOCYTE # (test code = MO#) 0.71 K/mm3 0-0.8 N EOSINOPHIL # (test code = EO#) 0.00 K/mm3 0.0-0.5 N BASOPHIL # (test code = BA#) 0.01 K/mm3 0.0-0.2 N NUCLEATED RBC # (test code = NRBC#) 0.00 K/mm3 0.0-0.1 N MANUAL DIFF REQUIRED (test code = MDIFF) YES STAIN ACCEPTABILITY (test code = STN ACCEPTABLE) STAIN ACCEPTABLE TOTAL CELLS COUNTED (test code = TCC) 114 #CELLS SEGMENTED NEUTROPHILS (test code = SEG) 81.6 % 39-69 H BAND NEUTROPHIL (test code = BAND) 0 % 0-10 N LYMPHOCYTE (test code = LYMPH) 9.6 % 25-55 L REACTIVE LYMPH (test code = RELYMPH) 0 % MONOCYTE (test code = MON) 5.3 % 0-10 N EOSINOPHIL (test code = EOS) 0 % 0.0-5.0 N BASOPHIL (test code = BASO) 0 % 0-1.0 N METAMYELOCYTE (test code = META) 0.9 % 0-0 H MYELOCYTE (test code = MYELO) 2.6 % 0.0-0.0 H PROMYELOCYTE (test code = PROM) 0 % 0-0 N POIKILOCYTOSIS (test code = POIK) 1+ PLATELET ESTIMATE (test code = PLTEST) ADEQUATE PLATELET MORPHOLOGY (test code = PLTMORPH) NORMAL IMMATURE FORMS (test code = IMMAT) 0 % BASIC METABOLIC [id number] 07:04:00* Test Item Value Reference Range Interpretation Comments SODIUM (test code = NA) 138 mmol/L 136-145 N POTASSIUM (test code = K) 3.4 mmol/L 3.5-5.1 L CHLORIDE (test code = CL) 105.0 mmol/L 98-107 N CARBON DIOXIDE (test code = CO2) 25.0 mmol/L 21-32 N ANION GAP (test code = GAP) 11.4 10-20 N GLUCOSE (test code = GLU) 145 mg/dL 74-106 H BLOOD UREA NITROGEN (test code = BUN) 11 mg/dL 7-18 N GLOMERULAR FILTRATION RATE (test code = GFR) > 60 mL/min >=60 Estimated GFR by using Modified MDRD formula.Chronic kidney disease is defined as either kidney damageor GFR <60 mL/min/1.73 m2 for >3 months. CREATININE (test code = CREAT) 0.70 mg/dL 0.7-1.3 N BUN/CREATININE RATIO (test code = BUN/CREA) 15.7 10-20 N CALCIUM (test code = CA) 8.2 mg/dL 8.5-10.1 L VANCOMYCIN [id number] 07:01:00* Test Item Value Reference Range Interpretation Comments VANCOMYCIN TROUGH (test code = VANCT) 38.3 ug/mL 10-20 H BASIC METABOLIC [id number] 06:58:00* Test Item Value Reference Range Interpretation Comments SODIUM (test code = NA) 138 mmol/L 136-145 N POTASSIUM (test code = K) 3.4 mmol/L 3.5-5.1 L CHLORIDE (test code = CL) 105.0 mmol/L 98-107 N CARBON DIOXIDE (test code = CO2) mmol/L 21-32 ANION GAP (test code = GAP) 10-20 GLUCOSE (test code = GLU) mg/dL 74-106 BLOOD UREA NITROGEN (test code = BUN) mg/dL 7-18 GLOMERULAR FILTRATION RATE (test code = GFR) mL/min >=60 CREATININE (test code = CREAT) mg/dL 0.7-1.3 BUN/CREATININE RATIO (test code = BUN/CREA) 10-20 CALCIUM (test code = CA) mg/dL 8.5-10.1 CBC W/MANUAL [id number] 06:41:00* Test Item Value Reference Range Interpretation Comments WHITE BLOOD CELL (test code = WBC) 10.2 K/mm3 4.5-12.5 N RED BLOOD CELL (test code = RBC) 4.88 mill/mm3 4.0-5.8 N HEMOGLOBIN (test code = HGB) 14.2 gram/dL 13.0-17.5 N HEMATOCRIT (test code = HCT) 42.5 % 42.0-52.0 N MEAN CELL VOLUME (test code = MCV) 87.1 fL 80-98 N MEAN CELL HGB (test code = MCH) 29.1 picogram 27.0-33.0 N MEAN CELL HGB CONCETRATION (test code = MCHC) 33.4 gram/dL 33.0-36. 0 N RED CELL DISTRIBUTION WIDTH (test code = RDW) 12.1 % 11.6-16. 2 N RED CELL DISTRIBUTION WIDTH SD (test code = RDW-SD) 38.4 fL 37 .0-51.0 N PLATELET COUNT (test code = PLT) 383 K/mm3 150-450 N MEAN PLATELET VOLUME (test code = MPV) 9.1 fL 6.7-11.0 N IMMATURE GRANULOCYTE % (test code = IG%) 6.9 % 0.0-5.0 H "The appearance of immature granulocytes (myelocytes,pro-myelocytes, meta-myelocytes) in the peripheral blood ofnon- individuals can indicate a response toinfection, inflammation, or other stimulus to the bonem[place]" NUCLEATED RBC % (test code = NRBC%) 0.0 % 0-0 N NEUTROPHIL # (test code = NT#) 7.68 K/mm3 1.8-7.7 N IMMATURE GRANULOCYTE # (test code = IG#) 0.71 x10 3/uL 0-0.03 H LYMPHOCYTE # (test code = LY#) 1.12 K/mm3 1.0-5.0 N MONOCYTE # (test code = MO#) 0.71 K/mm3 0-0.8 N EOSINOPHIL # (test code = EO#) 0.00 K/mm3 0.0-0.5 N BASOPHIL # (test code = BA#) 0.01 K/mm3 0.0-0.2 N NUCLEATED RBC # (test code = NRBC#) 0.00 K/mm3 0.0-0.1 N MANUAL DIFF REQUIRED (test code = MDIFF) YES STAIN ACCEPTABILITY (test code = STN ACCEPTABLE) TOTAL CELLS COUNTED (test code = TCC) #CELLS SEGMENTED NEUTROPHILS (test code = SEG) % 39-69 LYMPHOCYTE (test code = LYMPH) % 25-55 MONOCYTE (test code = MON) % 0-10 EOSINOPHIL (test code = EOS) % 0.0-5.0 CABOT RINGS (test code = CAB) MORPHOLOGY COMMENT (test code = MOC) PLATELET ESTIMATE (test code = PLTEST) PLATELET MORPHOLOGY (test code = PLTMORPH) CBC W/MANUAL [id number] 06:41:00* Test Item Value Reference Range Interpretation Comments WHITE BLOOD CELL (test code = WBC) 10.2 K/mm3 4.5-12.5 N RED BLOOD CELL (test code = RBC) 4.88 mill/mm3 4.0-5.8 N HEMOGLOBIN (test code = HGB) 14.2 gram/dL 13.0-17.5 N HEMATOCRIT (test code = HCT) 42.5 % 42.0-52.0 N MEAN CELL VOLUME (test code = MCV) 87.1 fL 80-98 N MEAN CELL HGB (test code = MCH) 29.1 picogram 27.0-33.0 N MEAN CELL HGB CONCETRATION (test code = MCHC) 33.4 gram/dL 33.0-36. 0 N RED CELL DISTRIBUTION WIDTH (test code = RDW) 12.1 % 11.6-16. 2 N RED CELL DISTRIBUTION WIDTH SD (test code = RDW-SD) 38.4 fL 37 .0-51.0 N PLATELET COUNT (test code = PLT) 383 K/mm3 150-450 N MEAN PLATELET VOLUME (test code = MPV) 9.1 fL 6.7-11.0 N IMMATURE GRANULOCYTE % (test code = IG%) 6.9 % 0.0-5.0 H "The appearance of immature granulocytes (myelocytes,pro-myelocytes, meta-myelocytes) in the peripheral blood ofnon- individuals can indicate a response toinfection, inflammation, or other stimulus to the bonemarrow" NUCLEATED RBC % (test code = NRBC%) 0.0 % 0-0 N NEUTROPHIL # (test code = NT#) 7.68 K/mm3 1.8-7.7 N IMMATURE GRANULOCYTE # (test code = IG#) 0.71 x10 3/uL 0-0.03 H LYMPHOCYTE # (test code = LY#) 1.12 K/mm3 1.0-5.0 N MONOCYTE # (test code = MO#) 0.71 K/mm3 0-0.8 N EOSINOPHIL # (test code = EO#) 0.00 K/mm3 0.0-0.5 N BASOPHIL # (test code = BA#) 0.01 K/mm3 0.0-0.2 N NUCLEATED RBC # (test code = NRBC#) 0.00 K/mm3 0.0-0.1 N MANUAL DIFF REQUIRED (test code = MDIFF) YES STAIN ACCEPTABILITY (test code = STN ACCEPTABLE) TOTAL CELLS COUNTED (test code = TCC) #CELLS SEGMENTED NEUTROPHILS (test code = SEG) % 39-69 LYMPHOCYTE (test code = LYMPH) % 25-55 MONOCYTE (test code = MON) % 0-10 EOSINOPHIL (test code = EOS) % 0.0-5.0 CABOT RINGS (test code = CAB) MORPHOLOGY COMMENT (test code = MOC) PLATELET ESTIMATE (test code = PLTEST) PLATELET MORPHOLOGY (test code = PLTMORPH) CBC W/MANUAL [id number] 06:41:00* Test Item Value Reference Range Interpretation Comments WHITE BLOOD CELL (test code = WBC) 10.2 K/mm3 4.5-12.5 N RED BLOOD CELL (test code = RBC) 4.88 mill/mm3 4.0-5.8 N HEMOGLOBIN (test code = HGB) 14.2 gram/dL 13.0-17.5 N HEMATOCRIT (test code = HCT) 42.5 % 42.0-52.0 N MEAN CELL VOLUME (test code = MCV) 87.1 fL 80-98 N MEAN CELL HGB (test code = MCH) 29.1 picogram 27.0-33.0 N MEAN CELL HGB CONCETRATION (test code = MCHC) 33.4 gram/dL 33.0-36. 0 N RED CELL DISTRIBUTION WIDTH (test code = RDW) 12.1 % 11.6-16. 2 N RED CELL DISTRIBUTION WIDTH SD (test code = RDW-SD) 38.4 fL 37 .0-51.0 N PLATELET COUNT (test code = PLT) 383 K/mm3 150-450 N MEAN PLATELET VOLUME (test code = MPV) 9.1 fL 6.7-11.0 N IMMATURE GRANULOCYTE % (test code = IG%) 6.9 % 0.0-5.0 H "The appearance of immature granulocytes (myelocytes,pro-myelocytes, meta-myelocytes) in the peripheral blood ofnon- individuals can indicate a response toinfection, inflammation, or other stimulus to the bonemarrow" NUCLEATED RBC % (test code = NRBC%) 0.0 % 0-0 N NEUTROPHIL # (test code = NT#) 7.68 K/mm3 1.8-7.7 N IMMATURE GRANULOCYTE # (test code = IG#) 0.71 x10 3/uL 0-0.03 H LYMPHOCYTE # (test code = LY#) 1.12 K/mm3 1.0-5.0 N MONOCYTE # (test code = MO#) 0.71 K/mm3 0-0.8 N EOSINOPHIL # (test code = EO#) 0.00 K/mm3 0.0-0.5 N BASOPHIL # (test code = BA#) 0.01 K/mm3 0.0-0.2 N NUCLEATED RBC # (test code = NRBC#) 0.00 K/mm3 0.0-0.1 N MANUAL DIFF REQUIRED (test code = MDIFF) YES STAIN ACCEPTABILITY (test code = STN ACCEPTABLE) TOTAL CELLS COUNTED (test code = TCC) #CELLS SEGMENTED NEUTROPHILS (test code = SEG) % 39-69 LYMPHOCYTE (test code = LYMPH) % 25-55 MONOCYTE (test code = MON) % 0-10 EOSINOPHIL (test code = EOS) % 0.0-5.0 MORPHOLOGY COMMENT (test code = MOC) PLATELET ESTIMATE (test code = PLTEST) PLATELET MORPHOLOGY (test code = PLTMORPH) CBC W/MANUAL [id number] 06:41:00* Test Item Value Reference Range Interpretation Comments WHITE BLOOD CELL (test code = WBC) 10.2 K/mm3 4.5-12.5 N RED BLOOD CELL (test code = RBC) 4.88 mill/mm3 4.0-5.8 N HEMOGLOBIN (test code = HGB) 14.2 gram/dL 13.0-17.5 N HEMATOCRIT (test code = HCT) 42.5 % 42.0-52.0 N MEAN CELL VOLUME (test code = MCV) 87.1 fL 80-98 N MEAN CELL HGB (test code = MCH) 29.1 picogram 27.0-33.0 N MEAN CELL HGB CONCETRATION (test code = MCHC) 33.4 gram/dL 33.0-36. 0 N RED CELL DISTRIBUTION WIDTH (test code = RDW) 12.1 % 11.6-16. 2 N RED CELL DISTRIBUTION WIDTH SD (test code = RDW-SD) 38.4 fL 37 .0-51.0 N PLATELET COUNT (test code = PLT) 383 K/mm3 150-450 N MEAN PLATELET VOLUME (test code = MPV) 9.1 fL 6.7-11.0 N IMMATURE GRANULOCYTE % (test code = IG%) 6.9 % 0.0-5.0 H "The appearance of immature granulocytes (myelocytes,pro-myelocytes, meta-myelocytes) in the peripheral blood ofnon- individuals can indicate a response toinfection, inflammation, or other stimulus to the bonemarrow" NUCLEATED RBC % (test code = NRBC%) 0.0 % 0-0 N NEUTROPHIL # (test code = NT#) 7.68 K/mm3 1.8-7.7 N IMMATURE GRANULOCYTE # (test code = IG#) 0.71 x10 3/uL 0-0.03 H LYMPHOCYTE # (test code = LY#) 1.12 K/mm3 1.0-5.0 N MONOCYTE # (test code = MO#) 0.71 K/mm3 0-0.8 N EOSINOPHIL # (test code = EO#) 0.00 K/mm3 0.0-0.5 N BASOPHIL # (test code = BA#) 0.01 K/mm3 0.0-0.2 N NUCLEATED RBC # (test code = NRBC#) 0.00 K/mm3 0.0-0.1 N MANUAL DIFF REQUIRED (test code = MDIFF) YES STAIN ACCEPTABILITY (test code = STN ACCEPTABLE) TOTAL CELLS COUNTED (test code = TCC) #CELLS SEGMENTED NEUTROPHILS (test code = SEG) % 39-69 LYMPHOCYTE (test code = LYMPH) % 25-55 MONOCYTE (test code = MON) % 0-10 MORPHOLOGY COMMENT (test code = MOC) PLATELET ESTIMATE (test code = PLTEST) PLATELET MORPHOLOGY (test code = PLTMORPH) CBC W/MANUAL [id number] 06:41:00* Test Item Value Reference Range Interpretation Comments WHITE BLOOD CELL (test code = WBC) 10.2 K/mm3 4.5-12.5 N RED BLOOD CELL (test code = RBC) 4.88 mill/mm3 4.0-5.8 N HEMOGLOBIN (test code = HGB) 14.2 gram/dL 13.0-17.5 N HEMATOCRIT (test code = HCT) 42.5 % 42.0-52.0 N MEAN CELL VOLUME (test code = MCV) 87.1 fL 80-98 N MEAN CELL HGB (test code = MCH) 29.1 picogram 27.0-33.0 N MEAN CELL HGB CONCETRATION (test code = MCHC) 33.4 gram/dL 33.0-36. 0 N RED CELL DISTRIBUTION WIDTH (test code = RDW) 12.1 % 11.6-16. 2 N RED CELL DISTRIBUTION WIDTH SD (test code = RDW-SD) 38.4 fL 37 .0-51.0 N PLATELET COUNT (test code = PLT) 383 K/mm3 150-450 N MEAN PLATELET VOLUME (test code = MPV) 9.1 fL 6.7-11.0 N IMMATURE GRANULOCYTE % (test code = IG%) 6.9 % 0.0-5.0 H "The appearance of immature granulocytes (myelocytes,pro-myelocytes, meta-myelocytes) in the peripheral blood ofnon- individuals can indicate a response toinfection, inflammation, or other stimulus to the bonemarrow" NUCLEATED RBC % (test code = NRBC%) 0.0 % 0-0 N NEUTROPHIL # (test code = NT#) 7.68 K/mm3 1.8-7.7 N IMMATURE GRANULOCYTE # (test code = IG#) 0.71 x10 3/uL 0-0.03 H LYMPHOCYTE # (test code = LY#) 1.12 K/mm3 1.0-5.0 N MONOCYTE # (test code = MO#) 0.71 K/mm3 0-0.8 N EOSINOPHIL # (test code = EO#) 0.00 K/mm3 0.0-0.5 N BASOPHIL # (test code = BA#) 0.01 K/mm3 0.0-0.2 N NUCLEATED RBC # (test code = NRBC#) 0.00 K/mm3 0.0-0.1 N MANUAL DIFF REQUIRED (test code = MDIFF) YES STAIN ACCEPTABILITY (test code = STN ACCEPTABLE) TOTAL CELLS COUNTED (test code = TCC) #CELLS SEGMENTED NEUTROPHILS (test code = SEG) % 39-69 LYMPHOCYTE (test code = LYMPH) % 25-55 MONOCYTE (test code = MON) % 0-10 EOSINOPHIL (test code = EOS) % 0.0-5.0 CABOT RINGS (test code = CAB) MORPHOLOGY COMMENT (test code = MOC) PLATELET ESTIMATE (test code = PLTEST) PLATELET MORPHOLOGY (test code = PLTMORPH) CBC W/AUTO [id number] 06:38:00* Test Item Value Reference Range Interpretation Comments WHITE BLOOD CELL (test code = WBC) K/mm3 4.5-12.5 RED BLOOD CELL (test code = RBC) mill/mm3 4.0-5.8 HEMOGLOBIN (test code = HGB) 14.2 gram/dL 13.0-17.5 N HEMATOCRIT (test code = HCT) 42.5 % 42.0-52.0 N MEAN CELL VOLUME (test code = MCV) fL 80-98 MEAN CELL HGB (test code = MCH) picogram 27.0-33.0 MEAN CELL HGB CONCETRATION (test code = MCHC) gram/dL 33.0-36. 0 RED CELL DISTRIBUTION WIDTH (test code = RDW) % 11.6-16. 2 RED CELL DISTRIBUTION WIDTH SD (test code = RDW-SD) fL 37 .0-51.0 PLATELET COUNT (test code = PLT) K/mm3 150-450 MEAN PLATELET VOLUME (test code = MPV) fL 6.7-11.0 NEUTROPHIL % (test code = NT%) % 39.0-69.0 IMMATURE GRANULOCYTE % (test code = IG%) % 0.0-5.0 LYMPHOCYTE % (test code = LY%) % 25.0-55.0 MONOCYTE % (test code = MO%) % 0.0-10.0 EOSINOPHIL % (test code = EO%) % 0.0-5.0 BASOPHIL % (test code = BA%) % 0.0-1.0 NEUTROPHIL # (test code = NT#) K/mm3 1.8-7.7 LYMPHOCYTE # (test code = LY#) K/mm3 1.0-5.0 MONOCYTE # (test code = MO#) K/mm3 0-0.8 EOSINOPHIL # (test code = EO#) K/mm3 0.0-0.5 BASOPHIL # (test code = BA#) K/mm3 0.0-0.2 [id number] 20:48:00* Test Item Value Reference Range Interpretation Comments GLUBED (test code = GLUBED) 237 mg/dL 74-106 H Performed [facility] certified [facility]rav[facility] [id number] 17:10:00* Test Item Value Reference Range Interpretation Comments GLUBED (test code = GLUBED) 171 mg/dL 74-106 H Performed by certified photogravure press operator at [facility] [id number] 11:59:00* Test Item Value Reference Range Interpretation Comments GLUBED (test code = GLUBED) 188 mg/dL 74-106 H Performed by certified photogravure press operator at [facility] [id number] 08:33:00* Test Item Value Reference Range Interpretation Comments GLUBED (test code = GLUBED) 162 mg/dL 74-106 H Performed by certified photogravure press operator at [facility] BASIC METABOLIC [id number] 07:05:00* Test Item Value Reference Range Interpretation Comments SODIUM (test code = NA) 134 mmol/L 136-145 L POTASSIUM (test code = K) 3.6 mmol/L 3.5-5.1 N CHLORIDE (test code = CL) 98.0 mmol/L 98-107 N CARBON DIOXIDE (test code = CO2) 23.0 mmol/L 21-32 N ANION GAP (test code = GAP) 16.6 10-20 N GLUCOSE (test code = GLU) 175 mg/dL 74-106 H BLOOD UREA NITROGEN (test code = BUN) 13 mg/dL 7-18 N GLOMERULAR FILTRATION RATE (test code = GFR) > 60 mL/min >=60 Estimated GFR by using Modified MDRD formula.Chronic kidney disease is defined as either kidney damageor GFR <60 mL/min/1.73 m2 for >3 months. CREATININE (test code = CREAT) 0.70 mg/dL 0.7-1.3 N BUN/CREATININE RATIO (test code = BUN/CREA) 19.2 10-20 N CALCIUM (test code = CA) 8.2 mg/dL 8.5-10.1 L CBC W/AUTO [id number] 06:56:00* Test Item Value Reference Range Interpretation Comments WHITE BLOOD CELL (test code = WBC) 13.3 K/mm3 4.5-12.5 H RED BLOOD CELL (test code = RBC) 4.42 mill/mm3 4.0-5.8 N HEMOGLOBIN (test code = HGB) 12.6 gram/dL 13.0-17.5 L HEMATOCRIT (test code = HCT) 37.9 % 42.0-52.0 L MEAN CELL VOLUME (test code = MCV) 85.7 fL 80-98 N MEAN CELL HGB (test code = MCH) 28.5 picogram 27.0-33.0 N MEAN CELL HGB CONCETRATION (test code = MCHC) 33.2 gram/dL 33.0-36. 0 N RED CELL DISTRIBUTION WIDTH (test code = RDW) 11.9 % 11.6-16. 2 N RED CELL DISTRIBUTION WIDTH SD (test code = RDW-SD) 36.9 fL 37 .0-51.0 L PLATELET COUNT (test code = PLT) 426 K/mm3 150-450 N MEAN PLATELET VOLUME (test code = MPV) 9.2 fL 6.7-11.0 N NEUTROPHIL % (test code = NT%) 83.3 % 39.0-69.0 H IMMATURE GRANULOCYTE % (test code = IG%) 5.5 % 0.0-5.0 H "The appearance of immature granulocytes (myelocytes,pro-myelocytes, meta-myelocytes) in the peripheral blood ofnon- individuals can indicate a response toinfection, inflammation, or other stimulus to the bonemarrow" LYMPHOCYTE % (test code = LY%) 6.8 % 25.0-55.0 L MONOCYTE % (test code = MO%) 3.8 % 0.0-10.0 N EOSINOPHIL % (test code = EO%) 0.0 % 0.0-5.0 N BASOPHIL % (test code = BA%) 0.6 % 0.0-1.0 N NUCLEATED RBC % (test code = NRBC%) 0.0 % 0-0 N NEUTROPHIL # (test code = NT#) 11.07 K/mm3 1.8-7.7 H IMMATURE GRANULOCYTE # (test code = IG#) 0.73 x10 3/uL 0-0.03 H LYMPHOCYTE # (test code = LY#) 0.90 K/mm3 1.0-5.0 L MONOCYTE # (test code = MO#) 0.51 K/mm3 0-0.8 N EOSINOPHIL # (test code = EO#) 0.00 K/mm3 0.0-0.5 N BASOPHIL # (test code = BA#) 0.08 K/mm3 0.0-0.2 N NUCLEATED RBC # (test code = NRBC#) 0.00 K/mm3 0.0-0.1 N MANUAL DIFF REQUIRED (test code = MDIFF) NO [id number] 21:03:00* Test Item Value Reference Range Interpretation Comments GLUBED (test code = GLUBED) 138 mg/dL 74-106 H Performed by certified photogravure press operator at [facility] [id number] 20:51:00* Test Item Value Reference Range Interpretation Comments GLUBED (test code = GLUBED) 210 mg/dL 74-106 H Performed by certified photogravure press operator at [facility] [id number] 14:51:00 RUN DATE: 06/28/18 [place] - Lab PAGE 1 RUN TIME: 1451 Specimen Inqui ry RUN USER: INTERFACE PATIENT: XOCHILT EPSTEIN ACCT #: [id number] LOC: [facility] U #: [id number] AGE/SX: 77/M ROOM: [facility] RE06/22/18[facility] DR: Silvia Contreras MD : 40 BED: A DIS: STATUS: ADM IN TLOC: SPEC #: [id number] RECD: 06/27/18 STATUS: MARLO REQ #: [id number] BERNARD: 06/27/[address]: Feliciano Hendricks MD ENTERED: 06/27/18 SP TYPE: CALCULI OTHR DR: Hernando Encarnacion MD, MD,Lady Mehta DPM, Zaher MD Watkins, Herbert LeonardORDERED: GROSS COPIES TO: Hernando Canales MD [address] [place], [place] [address] Albaro HICKS,Akira Menchaca [address] [place] [address] Lady Abraham DPM [address] [address] Rome Hendricks MD [address] [place] [address] Reg Luke MD [address] [place] [address] Kwaku Clement [facility] [address] [place] [address] PROCEDURES: SVETLANA (06/27/18-125) TISSUES: URINARY BLADDER, NOS - STONES CONTINUED ON NEXT PAGE RUN DATE: 06/28/18 [facility] PAGE 2 RUN TIME: 1451 Specimen Inquiry RUN USER: IN GADIEL SP EC #: [id number] PATIENT: XOCHILT EPSTEIN #[id number] ( Continued) CLINICAL HISTORY COLLECTION DATE: 06/27/18 BLADDER STONE FINAL DIAGNOSIS Bladder stones, removal: CALCU LI TO BE SENT FOR CHEMICAL ANALYSIS [facility]/ D [id number] MACRO SCOPIC The specimen is received in a container labeled with the patient's nam e and identified as "bladder stone". It consists of brown calculi/calculi fra gments measuring 1 cm in aggregate. GROSS PERFORMED AT [facility] [address] [place] [phone] Signed SIGNATURE ON FILE Sol Dozier MD 06/28/18 1451 END OF REPORT [id number] 12:51:00* Test Item Value Reference Range Interpretation Comments GLUBED (test code = GLUBED) 133 mg/dL 74-106 H Performed by certified photogravure press operator [facility] [id number] 12:51:00* Test Item Value Reference Range Interpretation Comments GLUBED (test code = GLUBED) 140 mg/dL 74-106 H Performed by certified photogravure press operator [facility] BASIC METABOLIC [id number] 11:17:00* Test Item Value Reference Range Interpretation Comments SODIUM (test code = NA) 137 mmol/L 136-145 N POTASSIUM (test code = K) 4.3 mmol/L 3.5-5.1 N CHLORIDE (test code = CL) 103.0 mmol/L 98-107 N CARBON DIOXIDE (test code = CO2) 25.0 mmol/L 21-32 N ANION GAP (test code = GAP) 13.3 10-20 N GLUCOSE (test code = GLU) 150 mg/dL 74-106 H BLOOD UREA NITROGEN (test code = BUN) 18 mg/dL 7-18 N GLOMERULAR FILTRATION RATE (test code = GFR) > 60 mL/min >=60 Estimated GFR by using Modified MDRD formula.Chronic kidney disease is defined as either kidney damageor GFR <60 mL/min/1.73 m2 for >3 months. CREATININE (test code = CREAT) 0.70 mg/dL 0.7-1.3 N BUN/CREATININE RATIO (test code = BUN/CREA) 24.9 10-20 H CALCIUM (test code = CA) 7.8 mg/dL 8.5-10.1 L BASIC METABOLIC [id number] 11:11:00* Test Item Value Reference Range Interpretation Comments SODIUM (test code = NA) 137 mmol/L 136-145 N POTASSIUM (test code = K) 4.3 mmol/L 3.5-5.1 N CHLORIDE (test code = CL) 103.0 mmol/L 98-107 N CARBON DIOXIDE (test code = CO2) mmol/L 21-32 ANION GAP (test code = GAP) 10-20 GLUCOSE (test code = GLU) mg/dL 74-106 BLOOD UREA NITROGEN (test code = BUN) mg/dL 7-18 GLOMERULAR FILTRATION RATE (test code = GFR) mL/min >=60 CREATININE (test code = CREAT) mg/dL 0.7-1.3 BUN/CREATININE RATIO (test code = BUN/CREA) 10-20 CALCIUM (test code = CA) mg/dL 8.5-10.1 CBC W/AUTO [id number] 10:32:00* Test Item Value Reference Range Interpretation Comments WHITE BLOOD CELL (test code = WBC) 12.3 K/mm3 4.5-12.5 N RED BLOOD CELL (test code = RBC) 4.41 mill/mm3 4.0-5.8 N HEMOGLOBIN (test code = HGB) 12.7 gram/dL 13.0-17.5 L HEMATOCRIT (test code = HCT) 39.5 % 42.0-52.0 L MEAN CELL VOLUME (test code = MCV) 89.6 fL 80-98 N MEAN CELL HGB (test code = MCH) 28.8 picogram 27.0-33.0 N MEAN CELL HGB CONCETRATION (test code = MCHC) 32.2 gram/dL 33.0-36. 0 L RED CELL DISTRIBUTION WIDTH (test code = RDW) 12.1 % 11.6-16. 2 N RED CELL DISTRIBUTION WIDTH SD (test code = RDW-SD) 39.3 fL 37 .0-51.0 N PLATELET COUNT (test code = PLT) 391 K/mm3 150-450 RESULT VERIFIED BY REPEAT ANALYSIS MEAN PLATELET VOLUME (test code = MPV) 9.5 fL 6.7-11.0 N NEUTROPHIL % (test code = NT%) 80.3 % 39.0-69.0 H IMMATURE GRANULOCYTE % (test code = IG%) 4.2 % 0.0-5.0 N LYMPHOCYTE % (test code = LY%) 9.5 % 25.0-55.0 L MONOCYTE % (test code = MO%) 5.3 % 0.0-10.0 N EOSINOPHIL % (test code = EO%) 0.0 % 0.0-5.0 N BASOPHIL % (test code = BA%) 0.7 % 0.0-1.0 N NUCLEATED RBC % (test code = NRBC%) 0.0 % 0-0 N NEUTROPHIL # (test code = NT#) 9.90 K/mm3 1.8-7.7 H IMMATURE GRANULOCYTE # (test code = IG#) 0.52 x10 3/uL 0-0.03 H LYMPHOCYTE # (test code = LY#) 1.17 K/mm3 1.0-5.0 N MONOCYTE # (test code = MO#) 0.66 K/mm3 0-0.8 N EOSINOPHIL # (test code = EO#) 0.00 K/mm3 0.0-0.5 N BASOPHIL # (test code = BA#) 0.09 K/mm3 0.0-0.2 N NUCLEATED RBC # (test code = NRBC#) 0.00 K/mm3 0.0-0.1 N MANUAL DIFF REQUIRED (test code = MDIFF) NO VANCOMYCIN [id number] 06:43:00* Test Item Value Reference Range Interpretation Comments VANCOMYCIN TROUGH (test code = VANCT) 17.9 ug/mL 10-20 N [id number] 20:30:00* Test Item Value Reference Range Interpretation Comments GLUBED (test code = GLUBED) 275 mg/dL 74-106 H Performed by certified photogravure press operator at [facility] [id number] 16:27:00* Test Item Value Reference Range Interpretation Comments GLUBED (test code = GLUBED) 176 mg/dL 74-106 H Performed by certified photogravure press operator [facility] [id number] 12:36:00* Test Item Value Reference Range Interpretation Comments GLUBED (test code = GLUBED) 144 mg/dL 74-106 H Performed by certified photogravure press operator [facility] [id number] 08:18:00* Test Item Value Reference Range Interpretation Comments GLUBED (test code = GLUBED) 114 mg/dL 74-106 H Performed by certified photogravure press operator [facility] CBC W/AUTO [id number] 07:46:00* Test Item Value Reference Range Interpretation Comments WHITE BLOOD CELL (test code = WBC) 8.6 K/mm3 4.5-12.5 N RED BLOOD CELL (test code = RBC) 4.65 mill/mm3 4.0-5.8 N HEMOGLOBIN (test code = HGB) 13.3 gram/dL 13.0-17.5 N HEMATOCRIT (test code = HCT) 40.0 % 42.0-52.0 L MEAN CELL VOLUME (test code = MCV) 86.0 fL 80-98 N MEAN CELL HGB (test code = MCH) 28.6 picogram 27.0-33.0 N MEAN CELL HGB CONCETRATION (test code = MCHC) 33.3 gram/dL 33.0-36. 0 N RED CELL DISTRIBUTION WIDTH (test code = RDW) 11.9 % 11.6-16. 2 N RED CELL DISTRIBUTION WIDTH SD (test code = RDW-SD) 36.9 fL 37 .0-51.0 L PLATELET COUNT (test code = PLT) 339 K/mm3 150-450 N MEAN PLATELET VOLUME (test code = MPV) 9.3 fL 6.7-11.0 N NEUTROPHIL % (test code = NT%) 70.1 % 39.0-69.0 H IMMATURE GRANULOCYTE % (test code = IG%) 4.3 % 0.0-5.0 N LYMPHOCYTE % (test code = LY%) 17.6 % 25.0-55.0 L MONOCYTE % (test code = MO%) 7.4 % 0.0-10.0 N EOSINOPHIL % (test code = EO%) 0.0 % 0.0-5.0 N BASOPHIL % (test code = BA%) 0.6 % 0.0-1.0 N NUCLEATED RBC % (test code = NRBC%) 0.0 % 0-0 N NEUTROPHIL # (test code = NT#) 6.05 K/mm3 1.8-7.7 N IMMATURE GRANULOCYTE # (test code = IG#) 0.37 x10 3/uL 0-0.03 H LYMPHOCYTE # (test code = LY#) 1.52 K/mm3 1.0-5.0 N MONOCYTE # (test code = MO#) 0.64 K/mm3 0-0.8 N EOSINOPHIL # (test code = EO#) 0.00 K/mm3 0.0-0.5 N BASOPHIL # (test code = BA#) 0.05 K/mm3 0.0-0.2 N NUCLEATED RBC # (test code = NRBC#) 0.00 K/mm3 0.0-0.1 N MANUAL DIFF REQUIRED (test code = MDIFF) NO BASIC METABOLIC [id number] 07:43:00* Test Item Value Reference Range Interpretation Comments SODIUM (test code = NA) 137 mmol/L 136-145 N POTASSIUM (test code = K) 3.9 mmol/L 3.5-5.1 N CHLORIDE (test code = CL) 102.0 mmol/L 98-107 N CARBON DIOXIDE (test code = CO2) 23.0 mmol/L 21-32 N ANION GAP (test code = GAP) 15.9 10-20 N GLUCOSE (test code = GLU) 108 mg/dL 74-106 H BLOOD UREA NITROGEN (test code = BUN) 11 mg/dL 7-18 N GLOMERULAR FILTRATION RATE (test code = GFR) > 60 mL/min >=60 Estimated GFR by using Modified MDRD formula.Chronic kidney disease is defined as either kidney damageor GFR <60 mL/min/1.73 m2 for >3 months. CREATININE (test code = CREAT) 0.70 mg/dL 0.7-1.3 N BUN/CREATININE RATIO (test code = BUN/CREA) 16.5 10-20 N CALCIUM (test code = CA) 7.7 mg/dL 8.5-10.1 L CBC W/AUTO [id number] 07:15:00* Test Item Value Reference Range Interpretation Comments WHITE BLOOD CELL (test code = WBC) K/mm3 4.5-12.5 RED BLOOD CELL (test code = RBC) mill/mm3 4.0-5.8 HEMOGLOBIN (test code = HGB) 13.3 gram/dL 13.0-17.5 N HEMATOCRIT (test code = HCT) % 42.0-52.0 MEAN CELL VOLUME (test code = MCV) fL 80-98 MEAN CELL HGB (test code = MCH) picogram 27.0-33.0 MEAN CELL HGB CONCETRATION (test code = MCHC) gram/dL 33.0-36. 0 RED CELL DISTRIBUTION WIDTH (test code = RDW) % 11.6-16. 2 RED CELL DISTRIBUTION WIDTH SD (test code = RDW-SD) fL 37 .0-51.0 PLATELET COUNT (test code = PLT) K/mm3 150-450 MEAN PLATELET VOLUME (test code = MPV) fL 6.7-11.0 NEUTROPHIL % (test code = NT%) % 39.0-69.0 IMMATURE GRANULOCYTE % (test code = IG%) % 0.0-5.0 LYMPHOCYTE % (test code = LY%) % 25.0-55.0 MONOCYTE % (test code = MO%) % 0.0-10.0 EOSINOPHIL % (test code = EO%) % 0.0-5.0 BASOPHIL % (test code = BA%) % 0.0-1.0 NEUTROPHIL # (test code = NT#) K/mm3 1.8-7.7 LYMPHOCYTE # (test code = LY#) K/mm3 1.0-5.0 MONOCYTE # (test code = MO#) K/mm3 0-0.8 EOSINOPHIL # (test code = EO#) K/mm3 0.0-0.5 BASOPHIL # (test code = BA#) K/mm3 0.0-0.2 [id number] 21:08:00* Test Item Value Reference Range Interpretation Comments GLUBED (test code = GLUBED) 145 mg/dL 74-106 H Performed by certified photogravure press operator at [facility] [id number] 16:20:00* Test Item Value Reference Range Interpretation Comments GLUBED (test code = GLUBED) 104 mg/dL 74-106 N Performed by certified photogravure press operator at [facility] - NM BONE [id number] 13:24:00 FAX: Lady Kilgore DPM [phone] [place]: St: ADM FAX: Rome Hendricks [phone] Name: XOCHILT EPSTEIN [facility] : 1940 Age/S: 77/M [address] [facility] Unit #: [id number] Loc: V.400[address] [place] [address] Phys: Lady Abraham DPM Acct: [id number] Dis Date: Status: ADM IN PHONE #: [phone] Exam Date: 06/26/2018 1200 FAX #: [phone] Reason: ulcer LT.FOOT EXAMS: CPT CODE: [id number] NM BONE LIMITED 53583 HISTORY: Left foot ulcer. COMPARISON: None available. Limited bone scan of both feet: 25.2 mCi of technetium 99m HDP. Intense uptake within the posterior left calcaneus suspicious for osteomyelitis. No other abnormal uptake. Ulcerations suspected inferior to the increased uptake. IMPRESSION: Increased uptake on the posterior left calcaneus suspicious for osteomyelitis. Correlate with MRI scan as clinically indicated. No abnormal uptake noted on the right side. at 1324 Reported and signed by: Atif garrido M.D. CC: Lady Abraham DPM; Rome Hendricks MD Technologist: ARGENTINA CRANDALL James Trnscrd Date/Time/By: 06/26/2018 (0167) : By: [email or web address] Orig Print D/ T: S: 06/26/2018 (0029) PAGE 1 Si gned Report [id number] 12:18:00* Test Item Value Reference Range Interpretation Comments GLUBED (test code = GLUBED) 181 mg/dL 74-106 H Performed by certified photogravure press operator at [facility] [id number] 08:08:00* Test Item Value Reference Range Interpretation Comments GLUBED (test code = GLUBED) 123 mg/dL 74-106 H Performed by certified photogravure press operator at [facility] BASIC METABOLIC [id number] 05:46:00* Test Item Value Reference Range Interpretation Comments SODIUM (test code = NA) 139 mmol/L 136-145 N POTASSIUM (test code = K) 3.6 mmol/L 3.5-5.1 N CHLORIDE (test code = CL) 103.0 mmol/L 98-107 N CARBON DIOXIDE (test code = CO2) 25.0 mmol/L 21-32 N ANION GAP (test code = GAP) 14.6 10-20 N GLUCOSE (test code = GLU) 123 mg/dL 74-106 H BLOOD UREA NITROGEN (test code = BUN) 12 mg/dL 7-18 N GLOMERULAR FILTRATION RATE (test code = GFR) > 60 mL/min >=60 Estimated GFR by using Modified MDRD formula.Chronic kidney disease is defined as either kidney damageor GFR <60 mL/min/1.73 m2 for >3 months. CREATININE (test code = CREAT) 0.70 mg/dL 0.7-1.3 N BUN/CREATININE RATIO (test code = BUN/CREA) 17.0 10-20 N CALCIUM (test code = CA) 7.9 mg/dL 8.5-10.1 L BASIC METABOLIC [id number] 05:29:00* Test Item Value Reference Range Interpretation Comments SODIUM (test code = NA) 139 mmol/L 136-145 N POTASSIUM (test code = K) 3.6 mmol/L 3.5-5.1 N CHLORIDE (test code = CL) 103.0 mmol/L 98-107 N CARBON DIOXIDE (test code = CO2) mmol/L 21-32 ANION GAP (test code = GAP) 10-20 GLUCOSE (test code = GLU) mg/dL 74-106 BLOOD UREA NITROGEN (test code = BUN) mg/dL 7-18 GLOMERULAR FILTRATION RATE (test code = GFR) mL/min >=60 CREATININE (test code = CREAT) mg/dL 0.7-1.3 BUN/CREATININE RATIO (test code = BUN/CREA) 10-20 CALCIUM (test code = CA) mg/dL 8.5-10.1 CBC W/AUTO [id number] 05:19:00* Test Item Value Reference Range Interpretation Comments WHITE BLOOD CELL (test code = WBC) 6.9 K/mm3 4.5-12.5 N RED BLOOD CELL (test code = RBC) 4.70 mill/mm3 4.0-5.8 N HEMOGLOBIN (test code = HGB) 13.3 gram/dL 13.0-17.5 N HEMATOCRIT (test code = HCT) 40.3 % 42.0-52.0 L MEAN CELL VOLUME (test code = MCV) 85.7 fL 80-98 N MEAN CELL HGB (test code = MCH) 28.3 picogram 27.0-33.0 N MEAN CELL HGB CONCETRATION (test code = MCHC) 33.0 gram/dL 33.0-36. 0 N RED CELL DISTRIBUTION WIDTH (test code = RDW) 11.9 % 11.6-16. 2 N RED CELL DISTRIBUTION WIDTH SD (test code = RDW-SD) 37.6 fL 37 .0-51.0 N PLATELET COUNT (test code = PLT) 321 K/mm3 150-450 N MEAN PLATELET VOLUME (test code = MPV) 9.0 fL 6.7-11.0 N NEUTROPHIL % (test code = NT%) 75.4 % 39.0-69.0 H IMMATURE GRANULOCYTE % (test code = IG%) 2.9 % 0.0-5.0 N LYMPHOCYTE % (test code = LY%) 13.9 % 25.0-55.0 L MONOCYTE % (test code = MO%) 7.4 % 0.0-10.0 N EOSINOPHIL % (test code = EO%) 0.0 % 0.0-5.0 N BASOPHIL % (test code = BA%) 0.4 % 0.0-1.0 N NUCLEATED RBC % (test code = NRBC%) 0.0 % 0-0 N NEUTROPHIL # (test code = NT#) 5.22 K/mm3 1.8-7.7 N IMMATURE GRANULOCYTE # (test code = IG#) 0.20 x10 3/uL 0-0.03 H LYMPHOCYTE # (test code = LY#) 0.96 K/mm3 1.0-5.0 L MONOCYTE # (test code = MO#) 0.51 K/mm3 0-0.8 N EOSINOPHIL # (test code = EO#) 0.00 K/mm3 0.0-0.5 N BASOPHIL # (test code = BA#) 0.03 K/mm3 0.0-0.2 N NUCLEATED RBC # (test code = NRBC#) 0.00 K/mm3 0.0-0.1 N MANUAL DIFF REQUIRED (test code = MDIFF) NO CBC W/AUTO [id number] 05:16:00* Test Item Value Reference Range Interpretation Comments WHITE BLOOD CELL (test code = WBC) K/mm3 4.5-12.5 RED BLOOD CELL (test code = RBC) mill/mm3 4.0-5.8 HEMOGLOBIN (test code = HGB) 13.3 gram/dL 13.0-17.5 N HEMATOCRIT (test code = HCT) % 42.0-52.0 MEAN CELL VOLUME (test code = MCV) fL 80-98 MEAN CELL HGB (test code = MCH) picogram 27.0-33.0 MEAN CELL HGB CONCETRATION (test code = MCHC) gram/dL 33.0-36. 0 RED CELL DISTRIBUTION WIDTH (test code = RDW) % 11.6-16. 2 RED CELL DISTRIBUTION WIDTH SD (test code = RDW-SD) fL 37 .0-51.0 PLATELET COUNT (test code = PLT) K/mm3 150-450 MEAN PLATELET VOLUME (test code = MPV) fL 6.7-11.0 NEUTROPHIL % (test code = NT%) % 39.0-69.0 IMMATURE GRANULOCYTE % (test code = IG%) % 0.0-5.0 LYMPHOCYTE % (test code = LY%) % 25.0-55.0 MONOCYTE % (test code = MO%) % 0.0-10.0 EOSINOPHIL % (test code = EO%) % 0.0-5.0 BASOPHIL % (test code = BA%) % 0.0-1.0 NEUTROPHIL # (test code = NT#) K/mm3 1.8-7.7 LYMPHOCYTE # (test code = LY#) K/mm3 1.0-5.0 MONOCYTE # (test code = MO#) K/mm3 0-0.8 EOSINOPHIL # (test code = EO#) K/mm3 0.0-0.5 BASOPHIL # (test code = BA#) K/mm3 0.0-0.2 [id number] 20:55:00* Test Item Value Reference Range Interpretation Comments GLUBED (test code = GLUBED) 186 mg/dL 74-106 H Performed by certified photogravure press [facility]~ - CTA LOW EXTREMITY [id number] 17:41:00 Name: XOCHILT EPSTEIN [facility] : 1940 Age/S: 77 / M [address] [facility] Unit #: [id number] Loc: [place]NA [place]wan [address] Phys: Talon Coates MD Acct: [id number] Dis Date: Status: ADM IN PHONE #: [phone] Exam Date: 06/25/2018 1338 FAX #: [phone] Reason: severe PAD EXAMS: CPT CODE: [id number] [place] [address] REASON FOR EXAM: severe PAD EXAM ORDER DATE: 06/25/2018 11:08 AM Ordering M.D.: Talon Coates MD PROCEDURE: - CTA LOW EXTREMITY LT FINDINGS: Axial images of the abdominal aorta and bilateral lower extremities runoff were obtained with IV contrast using CT angiogram protocol. Reconstructed sagittal and coronal images from the axial data were provided. Dose modulation, iterative reconstruction, and/or weight based adjustment of the MA/KV was utilized to reduce the radiation dose to as low as reasonably achievable. Maximum intensity pixel, Volume rendered, Surface shaded rendering, and 3D reconstructed images of the abdominal aorta and bilateral lower extremities runoff were provided for interpretation. Intravenous contrast: 100c of Omnipaque 370. IMPRESSION: 1. Mild atherosclerotic disease of the abdominal aorta and iliac arteries without evidence of focal inflow stenosis 2. 50-70% stenosis of the distal left popliteal artery. Proximal occlusion of the anterior and posterior tibial arteries. Severe calcification of the infrapopliteal vessels making it difficult to assess for patency. Probable patent distal left anterior tibial artery secondary to reconstitution. Probable patent left dorsalis pedis artery 3. 50% stenosis of the distal right popliteal artery. Probable proximal occlusion of the anterior and posterior tibial arteries in the proximal third segment. Again difficult to assess for patency of the distal vessel runoff due to severe calcification. Probable reconstitution in the distal right posterior tibial artery with single vessel runoff to the right foot. at 1741 Reported and signed by: Earle Alvarado M.D. PAGE 1 Signed Report (CONTINUED) Name: XOCHILT EPSTEIN [facility] : 1940 e/S: 77 / M [address] [place] [address] Unit #: [id number] Loc: [place] [address] Phys: Talon Coates MD Acct: [id number] Dis Date: Status: ADM IN PHONE #: [phone] Exam Date: 06/25/2018 1338 FAX #: [phone] Reason: severe PAD EXAMS: CPT CODE: [id number] [place] [address] <Continued> CC: Talon Coates M.D.; Rome Hendricks MD Technologist:Jason Patrick RT(R),(MR),(CT); CTDI: DLP: Trnscb Date/Time: 06/25/2018 (1740) tÁNGEL Orig Print D/T: S: 06/25/2018 (1743) CTDI: DLP: PAGE 2 Signed Report [id number] 17:33:00* Test Item Value Reference Range Interpretation Comments GLUBED (test code = GLUBED) 134 mg/dL 74-106 H Performed by certified photogravure press operator at [facility] [id number] 12:50:00* Test Item Value Reference Range Interpretation Comments GLUBED (test code = GLUBED) 187 mg/dL 74-106 H Performed by certified photogravure press operator at [facility] BASIC METABOLIC [id number] 12:11:00* Test Item Value Reference Range Interpretation Comments SODIUM (test code = NA) 137 mmol/L 136-145 N POTASSIUM (test code = K) 3.4 mmol/L 3.5-5.1 L CHLORIDE (test code = CL) 102.0 mmol/L 98-107 N CARBON DIOXIDE (test code = CO2) 27.0 mmol/L 21-32 N ANION GAP (test code = GAP) 11.4 10-20 N GLUCOSE (test code = GLU) 195 mg/dL 74-106 H BLOOD UREA NITROGEN (test code = BUN) 15 mg/dL 7-18 N GLOMERULAR FILTRATION RATE (test code = GFR) > 60 mL/min >=60 Estimated GFR by using Modified MDRD formula.Chronic kidney disease is defined as either kidney damageor GFR <60 mL/min/1.73 m2 for >3 months. CREATININE (test code = CREAT) 0.80 mg/dL 0.7-1.3 N BUN/CREATININE RATIO (test code = BUN/CREA) 19.3 10-20 N CALCIUM (test code = CA) 7.6 mg/dL 8.5-10.1 L BASIC METABOLIC [id number] 12:10:00* Test Item Value Reference Range Interpretation Comments SODIUM (test code = NA) 137 mmol/L 136-145 N POTASSIUM (test code = K) 3.4 mmol/L 3.5-5.1 L CHLORIDE (test code = CL) 102.0 mmol/L 98-107 N CARBON DIOXIDE (test code = CO2) mmol/L 21-32 ANION GAP (test code = GAP) 10-20 GLUCOSE (test code = GLU) mg/dL 74-106 BLOOD UREA NITROGEN (test code = BUN) mg/dL 7-18 GLOMERULAR FILTRATION RATE (test code = GFR) mL/min >=60 CREATININE (test code = CREAT) mg/dL 0.7-1.3 BUN/CREATININE RATIO (test code = BUN/CREA) 10-20 CALCIUM (test code = CA) mg/dL 8.5-10.1 CBC W/AUTO [id number] 11:54:00* Test Item Value Reference Range Interpretation Comments WHITE BLOOD CELL (test code = WBC) 6.6 K/mm3 4.5-12.5 N RED BLOOD CELL (test code = RBC) 4.44 mill/mm3 4.0-5.8 N HEMOGLOBIN (test code = HGB) 12.8 gram/dL 13.0-17.5 L HEMATOCRIT (test code = HCT) 38.7 % 42.0-52.0 L MEAN CELL VOLUME (test code = MCV) 87.2 fL 80-98 N MEAN CELL HGB (test code = MCH) 28.8 picogram 27.0-33.0 N MEAN CELL HGB CONCETRATION (test code = MCHC) 33.1 gram/dL 33.0-36. 0 N RED CELL DISTRIBUTION WIDTH (test code = RDW) 11.9 % 11.6-16. 2 N RED CELL DISTRIBUTION WIDTH SD (test code = RDW-SD) 38.0 fL 37 .0-51.0 N PLATELET COUNT (test code = PLT) 309 K/mm3 150-450 N MEAN PLATELET VOLUME (test code = MPV) 9.1 fL 6.7-11.0 N NEUTROPHIL % (test code = NT%) 73.7 % 39.0-69.0 H IMMATURE GRANULOCYTE % (test code = IG%) 2.3 % 0.0-5.0 N LYMPHOCYTE % (test code = LY%) 15.0 % 25.0-55.0 L MONOCYTE % (test code = MO%) 8.5 % 0.0-10.0 N EOSINOPHIL % (test code = EO%) 0.0 % 0.0-5.0 N BASOPHIL % (test code = BA%) 0.5 % 0.0-1.0 N NUCLEATED RBC % (test code = NRBC%) 0.0 % 0-0 N NEUTROPHIL # (test code = NT#) 4.86 K/mm3 1.8-7.7 N IMMATURE GRANULOCYTE # (test code = IG#) 0.15 x10 3/uL 0-0.03 H LYMPHOCYTE # (test code = LY#) 0.99 K/mm3 1.0-5.0 L MONOCYTE # (test code = MO#) 0.56 K/mm3 0-0.8 N EOSINOPHIL # (test code = EO#) 0.00 K/mm3 0.0-0.5 N BASOPHIL # (test code = BA#) 0.03 K/mm3 0.0-0.2 N NUCLEATED RBC # (test code = NRBC#) 0.00 K/mm3 0.0-0.1 N [id number] 08:20:00* Test Item Value Reference Range Interpretation Comments GLUBED (test code = GLUBED) 120 mg/dL 74-106 H Performed by certified photogravure press operator at [facility] [id number] 21:05:00* Test Item Value Reference Range Interpretation Comments GLUBED (test code = GLUBED) 165 mg/dL 74-106 H Performed by certified photogravure press operator [facility]~ VANCOMYCIN [id number] 17:59:00* Test Item Value Reference Range Interpretation Comments VANCOMYCIN TROUGH (test code = VANCT) 9.9 ug/mL 10-20 L [id number] 16:38:00* Test Item Value Reference Range Interpretation Comments GLUBED (test code = GLUBED) 123 mg/dL 74-106 H Performed by certified photogravure press operator at [facility] [id number] 12:26:00* Test Item Value Reference Range Interpretation Comments GLUBED (test code = GLUBED) 142 mg/dL 74-106 H Performed by certified photogravure press operator at [facility] [id number] 08:36:00* Test Item Value Reference Range Interpretation Comments GLUBED (test code = GLUBED) 176 mg/dL 74-106 H Performed by certified photogravure press operator at [facility] VANCOMYCIN [id number] 06:57:00* Test Item Value Reference Range Interpretation Comments VANCOMYCIN TROUGH (test code = VANCT) 9.9 ug/mL 10-20 L BASIC METABOLIC [id number] 06:52:00* Test Item Value Reference Range Interpretation Comments SODIUM (test code = NA) 138 mmol/L 136-145 N POTASSIUM (test code = K) 3.8 mmol/L 3.5-5.1 N CHLORIDE (test code = CL) 103.0 mmol/L 98-107 N CARBON DIOXIDE (test code = CO2) 26.0 mmol/L 21-32 N ANION GAP (test code = GAP) 12.8 10-20 N GLUCOSE (test code = GLU) 166 mg/dL 74-106 H BLOOD UREA NITROGEN (test code = BUN) 17 mg/dL 7-18 N GLOMERULAR FILTRATION RATE (test code = GFR) > 60 mL/min >=60 Estimated GFR by using Modified MDRD formula.Chronic kidney disease is defined as either kidney damageor GFR <60 mL/min/1.73 m2 for >3 months. CREATININE (test code = CREAT) 0.90 mg/dL 0.7-1.3 N BUN/CREATININE RATIO (test code = BUN/CREA) 19.3 10-20 N CALCIUM (test code = CA) 8.0 mg/dL 8.5-10.1 L BASIC METABOLIC [id number] 06:47:00* Test Item Value Reference Range Interpretation Comments SODIUM (test code = NA) 138 mmol/L 136-145 N POTASSIUM (test code = K) 3.8 mmol/L 3.5-5.1 N CHLORIDE (test code = CL) 103.0 mmol/L 98-107 N CARBON DIOXIDE (test code = CO2) mmol/L 21-32 ANION GAP (test code = GAP) 10-20 GLUCOSE (test code = GLU) mg/dL 74-106 BLOOD UREA NITROGEN (test code = BUN) mg/dL 7-18 GLOMERULAR FILTRATION RATE (test code = GFR) mL/min >=60 CREATININE (test code = CREAT) mg/dL 0.7-1.3 BUN/CREATININE RATIO (test code = BUN/CREA) 10-20 CALCIUM (test code = CA) mg/dL 8.5-10.1 CBC W/O [id number] 06:26:00* Test Item Value Reference Range Interpretation Comments WHITE BLOOD CELL (test code = WBC) 6.5 K/mm3 4.5-12.5 N RED BLOOD CELL (test code = RBC) 4.58 mill/mm3 4.0-5.8 N HEMOGLOBIN (test code = HGB) 13.0 gram/dL 13.0-17.5 RESULT VERIFIED BY REPEAT ANALYSIS HEMATOCRIT (test code = HCT) 40.9 % 42.0-52.0 L MEAN CELL VOLUME (test code = MCV) 89.3 fL 80-98 N MEAN CELL HGB (test code = MCH) 28.4 picogram 27.0-33.0 N MEAN CELL HGB CONCETRATION (test code = MCHC) 31.8 gram/dL 33.0-36. 0 L RED CELL DISTRIBUTION WIDTH (test code = RDW) 11.9 % 11.6-16. 2 N PLATELET COUNT (test code = PLT) 329 K/mm3 150-450 RESULT VERIFIED BY REPEAT ANALYSIS MEAN PLATELET VOLUME (test code = MPV) 9.1 fL 6.7-11.0 N [id number] 20:30:00* Test Item Value Reference Range Interpretation Comments GLUBED (test code = GLUBED) 134 mg/dL 74-106 H Performed by certified photogravure press operator at [facility] [id number] 20:29:00* Test Item Value Reference Range Interpretation Comments GLUBED (test code = GLUBED) 175 mg/dL 74-106 H Performed by certified photogravure press operator at [facility] - US RETROPERITONEAL [id number] 16:41:00 Name: XOCHILT EPSTEIN [facility] : 1940 Age/S: 77 / M [address] [facility] Unit #: [id number] Loc: [place] [address] Phys: Kwaku Clement Acct: [id number] Dis Date: Status: ADM IN PHONE #: [phone] Exam Date: 06/23/2018 1624 FAX #: [phone] Reason: micro- hematuria EXAMS: CPT CODE: [id number] [place] RETROPERITONEAL COM [id number] HISTORY: Microhematuria. COMPARISON: None available. Both kidneys are free from hydronephrosis. No calyceal stones. No perinephric collections. Echogenicity and texture is symmetrical and normal. Right kidney measured 11.6 x 5.4 x 4.7 cm. Left kidney is measuring 11.1 x 5 x 4.5 cm. Well-distended urinary bladder without wall thickening or mural nodule. Bilateral ureteral jets are documented. 1.6 cm calcification adjacent to the right ureteral orifice. IMPRESSION: No hydronephrosis or calyceal stones. Normal echogenicity and texture. 1.6 cm urinary bladder stone towards the right of the midline close to the right ureteral orifice. No wall thickening or mural nodules. at 1641 Reported and signed by: Atif David M.D. CC: Rome Hendricks MD; Kwaku Clement M.D. Technologist: PRETTY MAYORGA Trnscb Date/Time: 06/23/2018 (1640) [email or web address] Orig Print D/T: S: 06/23/2018 (0929) Probe: PAGE 1 Signed Report [id number] 12:25:00* Test Item Value Reference Range Interpretation Comments GLUBED (test code = GLUBED) 148 mg/dL 74-106 H Performed by certified photogravure press operator at [facility] [id number] 12:25:00* Test Item Value Reference Range Interpretation Comments GLUBED (test code = GLUBED) 221 mg/dL 74-106 H Performed by certified photogravure press operator at [facility] [id number] 10:39:00* Test Item Value Reference Range Interpretation Comments GLYCOSYLATED HEMOGLOBIN (HA1C) (test code = GLYHGB) 11.1 % HbA1 4. 8-6.0 H ESTIMATED AVERAGE GLUCOSE (test code = EAG) 272 MG/DL LACTIC [id number] 23:22:00* Test Item Value Reference Range Interpretation Comments LACTIC ACID (test code = LACT) 0.9 mmol/L 0.4-1.9 N PROCALCITONIN (PCT)2018-06-22 20:58:00* Test Item Value Reference Range Interpretation Comments PROCALCITONIN (PCT) (test code = PROCAL) 0.13 ng/ml Concentration Interpretation (ng/mL) <0.51 Sepsis is not likely. Local bacterial infection is possible. (LOW RISK for progression to Sepsis) 0.51 - 2.00 Sepsis is possible, but other conditions are known to elevate PCT as well. (MODERATE RISK for progression to Sepsis) > 2.00 Sepsis is likely, unless other causes are known. (HIGH RISK for progression to Severe Sepsis or Septic Shock) 10.00 High likelihood of Severe Sepsis or Septic or higher Shock. *Increased PCT levels may not always be related to systemic bacterial infection.*Low PCT levels do not automatically exclude the presence of bacterial infection.*All results should be interpreted taking into account the patients history. [id number] 20:54:00* Test Item Value Reference Range Interpretation Comments GLUBED (test code = GLUBED) 110 mg/dL 74-106 H Performed by certified photogravure press operator at [facility] LACTIC [id number] 19:41:00* Test Item Value Reference Range Interpretation Comments LACTIC ACID (test code = LACT) 0.8 mmol/L 0.4-1.9 N - XR FOOT 3 + V [id number] 18:50:00 FAX: La Andersen [phone] [place]: St: REG Name: XOCHILT REYNA [facility] : [birth year] Age/S: 77/M [address] [facility] Unit #: [id number] Loc: [place] [address] Phys: La Pedersen MD Acct: [id number] Dis Date: Status: REG ER PHONE #: [phone] Exam Date: 06/22/2018 1822 FAX #: [phone] 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 The osseous structures are unremarkable in size and shape. The joint spa clement are maintained. No evidence of fracture. The phalanges are intact. The metatarsal and tarsal bones are unremarkable IMPRESSI ON: Atrophy of the soft tissue of the distal left 2nd phalanx suggestive of necrosis. No evidence of acute osteomyelitis Electronically Sig harmony by David Alvarado on 06/22/2018 at 1850 Reported and s igned by: Earle Alvarado M.D. CC: La Pedersen MD Technologist: Ashley Das Trnscrd Date/Time/By: 06/22/2018 (1849) : By: BritneyL Orig Print D/T: S: 06/22/2018 (1853) PAGE 1 Signed Report - XR CHEST 1 [id number] 18:49:00 FAX: La Andersen [phone] [place]: St: REG Name: XOCHILT REYNA [facility] : [birth year] Age/S: 77/M [address] [facility] Unit #: [id number] Loc: [place] [address] Phys: La Pedersen MD Acct: [id number] Dis Date: Status: REG ER PHONE #: [phone] Exam Date: 06/22/2018 1822 FAX #: [phone] Reason: CODE SEPSIS EXAMS: CPT CODE: [id number] XR CHEST 1 V 47022 REASON FOR EXAM: CODE SEPSIS EXAM ORDER DATE: 06/22/2018 5:19 PM Ordering David: La Pedersen MD PROCEDURE: - XR CHEST 1 V CO MPARISON: FINDINGS: Portable AP frontal view of the chest obtaine d at 6:11 PM shows clear lungs without evidence of consolidation. There is no evidence of effusion. The heart size is minimally enlarged. Pulmonary vasculatures are unremarkable. IMPRESSION: No active dise ase. at 184 Reported and signed by: Earle Alvarado M.D. CC: La Pedersen MD Technologist: Ashley Kilpatrick Trnscrd Date/Time/By: 06/23/19 (546) : By: FernandoVTL Orig Print D/T: S: 06/22/2018 (9683) PAGE 1 Signed Report B-TYPE NATRIURETIC [id number] 18:39:00* Test Item Value Reference Range Interpretation Comments B-TYPE NATRIURETIC PEPTIDE (test code = BNP) 84.33 pgram/mL 0-100 N LACTIC [id number] 18:33:00* Test Item Value Reference Range Interpretation Comments LACTIC ACID (test code = LACT) 2.0 mmol/L 0.4-1.9 H Results called to Devante VASQUEZ by V.LAB.QUR 06/22/18 1833Critical results verified and read back by Nurse? Y BASIC METABOLIC [id number] 18:26:00* Test Item Value Reference Range Interpretation Comments SODIUM (test code = NA) 134 mmol/L 136-145 L POTASSIUM (test code = K) 4.2 mmol/L 3.5-5.1 N CHLORIDE (test code = CL) 98.0 mmol/L 98-107 N CARBON DIOXIDE (test code = CO2) 24.0 mmol/L 21-32 N ANION GAP (test code = GAP) 16.2 10-20 N GLUCOSE (test code = GLU) 125 mg/dL 74-106 H BLOOD UREA NITROGEN (test code = BUN) 17 mg/dL 7-18 N GLOMERULAR FILTRATION RATE (test code = GFR) > 60 mL/min >=60 Estimated GFR by using Modified MDRD formula.Chronic kidney disease is defined as either kidney damageor GFR <60 mL/min/1.73 m2 for >3 months. CREATININE (test code = CREAT) 1.10 mg/dL 0.7-1.3 N BUN/CREATININE RATIO (test code = BUN/CREA) 15.2 10-20 N CALCIUM (test code = CA) 9.1 mg/dL 8.5-10.1 N HEPATIC FUNCTION [id number] 18:26:00* Test Item Value Reference Range Interpretation Comments TOTAL PROTEIN (test code = PROT) 8.6 gram/dL 6.4-8.2 H ALBUMIN (test code = ALB) 2.9 g/dL 3.4-5.0 L GLOBULIN (test code = GLOB) 5.7 gram/dL 2.7-4.2 H ALBUMIN/GLOBULIN RATIO (test code = A/G) 0.5 0.75-1.50 L BILIRUBIN TOTAL (test code = BILT) 0.50 mg/dL 0.0-1.0 N BILIRUBIN DIRECT (test code = BILD) 0.16 mg/dL 0.0-0.20 N SGOT/AST (test code = AST) 24 IUnit/L 15-37 N SGPT/ALT (test code = ALT) 20 IUnit/L 12-78 N ALKALINE PHOSPHATASE TOTAL (test code = ALKP) 91 IUnit/L 45-117 N Note change in reference range due to change in reagent. [id number] 18:26:00* Test Item Value Reference Range Interpretation Comments TROPONIN-I (test code = TROPI) <0.015 ng/mL 0-0.045 N BASIC METABOLIC [id number] 18:21:00* Test Item Value Reference Range Interpretation Comments SODIUM (test code = NA) 134 mmol/L 136-145 L POTASSIUM (test code = K) 4.2 mmol/L 3.5-5.1 N CHLORIDE (test code = CL) 98.0 mmol/L 98-107 N CARBON DIOXIDE (test code = CO2) mmol/L 21-32 ANION GAP (test code = GAP) 10-20 GLUCOSE (test code = GLU) mg/dL 74-106 BLOOD UREA NITROGEN (test code = BUN) mg/dL 7-18 GLOMERULAR FILTRATION RATE (test code = GFR) mL/min >=60 CREATININE (test code = CREAT) mg/dL 0.7-1.3 BUN/CREATININE RATIO (test code = BUN/CREA) 10-20 CALCIUM (test code = CA) mg/dL 8.5-10.1 HEPATIC FUNCTION [id number] 18:21:00* Test Item Value Reference Range Interpretation Comments TOTAL PROTEIN (test code = PROT) gram/dL 6.4-8.2 ALBUMIN (test code = ALB) g/dL 3.4-5.0 GLOBULIN (test code = GLOB) gram/dL 2.7-4.2 ALBUMIN/GLOBULIN RATIO (test code = A/G) 0.75-1.50 BILIRUBIN TOTAL (test code = BILT) mg/dL 0.0-1.0 BILIRUBIN DIRECT (test code = BILD) mg/dL 0.0-0.20 SGOT/AST (test code = AST) IUnit/L 15-37 SGPT/ALT (test code = ALT) IUnit/L 12-78 ALKALINE PHOSPHATASE TOTAL (test code = ALKP) IUnit/L 45-117 [id number] 18:21:00* Test Item Value Reference Range Interpretation Comments TROPONIN-I (test code = TROPI) ng/mL 0-0.045 [id number] 18:21:00* Test Item Value Reference Range Interpretation Comments MAGNESIUM (test code = MAG) 1.5 mg/dL 1.8-2.4 L PROTHROMBIN [id number] 18:04:00* Test Item Value Reference Range Interpretation Comments PROTHROMBIN TIME PATIENT (test code = PTP) 13.8 seconds 9.0-14.0 N INTERNATIONAL NORMAL RATIO (test code = INR) 1.1 0.8-1.2 N The therapeutic range for oral anticoagulant therapy formost indications is an international normalized ratio (INR)of between 2.0 and 3.0. The recommended therapeutic INRrange for various clinical situations is listed below: Clinical Situation INR range Pulmonary e mbolism treatment (2.0-3.0)Venous thrombosis treatmentVenous thrombosis prophylaxis (high risk surgery)Prevention of systemic embolism from: Acute myocardial infarction Valvular heart disease Atrial fibrillation Mechanical prosthetic heart valves (2.5-3.5) IS PATIENT ON ANTICOAGULANTS? NTHROMBOPLASTIN TIME [id number] 18:04:00* Test Item Value Reference Range Interpretation Comments THROMBOPLASTIN TIME PARTIAL (test code = PTT) 36.2 seconds 25.0-36. 5 N IS PATIENT ON ANTICOAGULANTS? NURINALYSIS [id number] 18:01:00* Test Item Value Reference Range Interpretation Comments UA COLOR (test code = COLU) JOYCELYN YELLOW A UA APPEARANCE (test code = APPU) SLIGHTLY CLOUDY CLEAR A UA GLUCOSE DIPSTICK (test code = DGLUU) NEGATIVE mg/dL NEGATIVE UA BILIRUBIN DIPSTICK (test code = BILU) NEGATIVE mg/dL NEGATIVE UA KETONE DIPSTICK (test code = KETU) 20 (Small) mg/dL NEGATIVE A UA SPECIFIC GRAVITY (test code = SGU) 1.023 1.001-1.035 UA BLOOD DIPSTICK (test code = SUSI) 3+ (Large) NEGATIVE A UA PH DIPSTICK (test code = MELINDA) 5.0 5.0-8.0 UA PROTEIN DIPSTICK (test code = PROU) 100 (2+) mg/dL NEGATIVE A UA UROBILINIOGEN DIPSTICK (test code = URO) 1 mg/dL (1+) mg/dL 0.0 -0.2 UA NITRITE DIPSTICK (test code = MARIAMA) NEGATIVE NEGATIVE UA LEUKOCYTE ESTERASE W REFLEX (test code = LEUUR) NEGATIVE NEG ATIVE UA WBC (test code = WBCU) 0-5 #/HPF 0-5 UA RBC (test code = RBCU) >20 #/HPF 0-5 A UA EPITHELIAL CELLS (test code = EPIU) FEW per HPF FEW UA BACTERIA (test code = BACU) FEW #/HPF NONE A UA MUCUS (test code = MUCU) FEW #/LPF FEW UA AMORPHOUS SEDIMENT (test code = AMORU) FEW #/LPF Urine Source? Clean Catch- CT HEAD/BRAIN W/O [id number] 18:01:00 Name: XOCHILT EPSTEINELICEO [facility] : 1940 Age/S: 77 / M [address] Unit #: [id number] Loc: [place] [address] Phys: La Pedersen MD Acct: [id number] Di s Date: Status: REG ER PHONE #: Exam Date: 06/22/2018 0640 FAX #: Reason: CODE SEPSIS EXAMS: CPT CODE: [id number] CT HEAD/BRAIN W/O CONT [id number] REASON FOR EXAM: CODE SEPSIS EXAM ORDER DATE: 06/22/2018 5:19 PM Jayi zulma Hernandez: La Pedersen MD PROCEDURE: - CT HEAD/BRAIN W/O CON T COMPARISON: FINDINGS: CT images of the brain were obtained without IV contrast. Dose modulation, iterative reconstruction, and/or weight based adjustment of the MA/KV was utilized to reduce the rad iation dose to as low as reasonably achievable. Mild patchy low densities appearance of the paraventricular region noted consistent w ith nonspecific white matter disease. The potts-white matter delineation is unremarkable. The ventricles, cisterns, and sulci are unremarkable. There is no evidence of hemorrhage, mass, mass effect. There is no evidence of acute or old infarct. The calvarium is intact. IMPRESSIO N: Small calcification in the right frontal lobe suggestive of sequela o f chronic infection. Nonspecific deep white matter disease. No acute f indings Electronically Signed by David Alvarado on 9 at 1801 Reported and signed by: Earle Alvarado M.D. CC: La Pedersen MD Technologist:Ana Fields RT(R),CT; CTDI: DLP: Trnscb Date/Time: (1800) [email or web address] Orig Print D/T: S: 06/22/2018 (1804) CTDI: DLP: PAGE 1 Signed Report CBC W/AUTO [id number] 17:54:00* Test Item Value Reference Range Interpretation Comments WHITE BLOOD CELL (test code = WBC) 8.9 K/mm3 4.5-12.5 N RED BLOOD CELL (test code = RBC) 5.33 mill/mm3 4.0-5.8 N HEMOGLOBIN (test code = HGB) 15.2 gram/dL 13.0-17.5 N HEMATOCRIT (test code = HCT) 48.1 % 42.0-52.0 N MEAN CELL VOLUME (test code = MCV) 90.2 fL 80-98 N MEAN CELL HGB (test code = MCH) 28.5 picogram 27.0-33.0 N MEAN CELL HGB CONCETRATION (test code = MCHC) 31.6 gram/dL 33.0-36. 0 L RED CELL DISTRIBUTION WIDTH (test code = RDW) 11.9 % 11.6-16. 2 N RED CELL DISTRIBUTION WIDTH SD (test code = RDW-SD) 39.1 fL 37 .0-51.0 N PLATELET COUNT (test code = PLT) 424 K/mm3 150-450 N MEAN PLATELET VOLUME (test code = MPV) 8.9 fL 6.7-11.0 N NEUTROPHIL % (test code = NT%) 82.7 % 39.0-69.0 H IMMATURE GRANULOCYTE % (test code = IG%) 2.1 % 0.0-5.0 N LYMPHOCYTE % (test code = LY%) 5.3 % 25.0-55.0 L MONOCYTE % (test code = MO%) 9.3 % 0.0-10.0 N EOSINOPHIL % (test code = EO%) 0.0 % 0.0-5.0 N BASOPHIL % (test code = BA%) 0.6 % 0.0-1.0 N NUCLEATED RBC % (test code = NRBC%) 0.0 % 0-0 N NEUTROPHIL # (test code = NT#) 7.33 K/mm3 1.8-7.7 N IMMATURE GRANULOCYTE # (test code = IG#) 0.19 x10 3/uL 0-0.03 H LYMPHOCYTE # (test code = LY#) 0.47 K/mm3 1.0-5.0 L MONOCYTE # (test code = MO#) 0.82 K/mm3 0-0.8 H EOSINOPHIL # (test code = EO#) 0.00 K/mm3 0.0-0.5 N BASOPHIL # (test code = BA#) 0.05 K/mm3 0.0-0.2 N NUCLEATED RBC # (test code = NRBC#) 0.00 K/mm3 0.0-0.1 N POC LACTIC [id number] 17:40:00* Test Item Value Reference Range Interpretation Comments POC LACTIC ACID (test code = POCLAC) 2.19 MMOL/L 0.4-2.2 N
--- NOTE | 2019-12-26 15:36 | NUR ---
type and cross sent at this time
--- NOTE | 2019-12-26 15:39 | Diagnostic Imaging Report ---
Examination: CT head without contrast Clinical Indication: ^N ^AMS ^[id number] ^1400; altered mental status. Technique: Transaxial noncontrast images from the skull base through the vertex were obtained. Sagittal and coronal reformatted images were done. Dose modulation, iterative reconstruction, and/or weight based adjustment of the mA/kV was utilized to reduce the radiation dose to as low as reasonably achievable. Comparison: None. Findings: Scalp: No abnormalities. Bones: Intact. No fractures. No blastic or lytic lesions. Brain sulci: Generalized volume loss for patient's age. Ventricles: No hydrocephalus. Extra-axial space: No abnormalities. Parenchyma: There are mild confluent areas of low-attenuation within subcortical and periventricular white matter, nonspecific, but could represent microvascular ischemic disease. Age-indeterminate cortical-based encephalomalacia of the left lingual gyrus. No masses or hemorrhage. Suprasellar region: No abnormalities. Craniocervical junction: The foramen magnum is patent. No Chiari one malformation. Incidental findings: Atherosclerotic calcification of the cavernous and supraclinoid internal carotid and V4 segments of the bilateral vertebral arteries. Opacified right middle ear cavity. Sclerotic left mastoid air cells. Impression: 1. 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 2. Chronic microvascular ischemic change. 3. Generalized volume loss. Signed by: Dr. Elizabeth Breaux M.D. on 12/26/2019 3:36 PM
[2019-12-26] MEDS ORDERED: MEROPENEM 1GM 100 ML IV ONE (15:45)
--- NOTE | 2019-12-26 15:45 | Diagnostic Imaging Report ---
Examination: CT CERVICAL SPINE WO CONTRAST HISTORY:Altered mental status. COMPARISON:None. TECHNIQUE: Multidetector helical axial images were obtained without contrast from the foramen magnum to T1. Coronal and sagittal reformatted images were done. Bone and soft tissue windows were evaluated. Dose modulation, iterative reconstruction, and/or weight based adjustment of the mA/kV was utilized to reduce the radiation dose to as low as reasonably achievable. FINDINGS: Alignment:Normal alignment and lordosis. Vertebrae: Underlying anterior discectomy and fusion at C5 and C6. Disc space heights: Remaining disc spaces are normal in height. Caliber of spinal canal: Developmentally normal. Posterior fossa and craniocervical junction: Foramen magnum patent. No Chiari 1 malformation. Soft tissues: Atherosclerotic calcification of the bilateral carotid bifurcations. Degenerative changes: No disc bulge/ herniation or foraminal or canal stenosis. Visualized lung apices: No abnormalities. IMPRESSION: No acute abnormalities. Signed by: Dr. Elizabeth Breaux M.D. on 12/26/2019 3:41 PM
--- NOTE | 2019-12-26 17:05 | NUR ---
Blood Transfusion initiated
[2019-12-26] MEDS ORDERED: FLUCONAZOLE 200 MG/100 ML 100 ML IV ONE (17:30)
[2019-12-26] MEDS ORDERED: ONDANSETRON HCL INJ 2MG/ML 2ML 2 MG/ML VIAL IV PRN (18:00)
--- NOTE | 2019-12-26 18:28 | NUR ---
requested Fluconazole IV from pharmacy at this time
--- NOTE | 2019-12-26 18:32 | Emergency Department Note ---
History of Present Illnes History of Present Illness Chief Complaint: Neurological History of Present Illness This is a 79 year old male pt [facility] from [facility], as per EMS, pt is being brought in for evaluation of altered mental status, pt had a recent negative covid-19 swab as per [facility], pt has a reaves catheter in place that appears to have cloudy urine, pt is only responsive to painful stimuli. 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 Any updates have been documented here. Past Medical History Recent Fever: No Clinical Suspicion of Infectio: Yes New/Unexplained Change in Ment: Yes Past Medical History: A-Fib, Seizure Disorder Other Medical History: parkinsons, PVD Past Surgical History: None Social History Smoking Cessation: Unknown if ever smoked Alcohol Use: None Any Illegal Drug Use: No TB Exposure/Symptoms: No Physically hurt or threatened: No Family History Family history of heart diseas: No Other Any Pre-Existing Lines (PICC,: No Review of Systems ROS Narrative Unable to obtain ROS: Unable to obtain due to, altered mental status Physical Exam Related Data Allergies: Coded Allergies: No Known Allergies (Unverified , 12/26/19) Triage Vital Signs Vital Signs Date Time Temp Pulse Resp B/P (MAP) Pulse Ox O2 Delivery O2 Flow Rate FiO2 12/26/19 13:52 97.6 77 16 182/86 100 Room Air 2.0 Vital signs reviewed: Yes Physical Exam CONSTITUTIONAL Constitutional: Present ill appearing HENT HENT: Present normocephalic, Present atraumatic, Present mucosae dry HENT L/R: Present left ext ear normal, Present right ext ear normal EYES Eyes: Reports PERRL, Reports conjunctivae normal NECK Neck: Present ROM normal PULMONARY Pulmonary: Present effort normal, Present breath sounds normal CARDIOVASCULAR Cardiovascular: Present regular rhythm, Present heart sounds normal, Present capillary refill normal, Present normal rate GASTROINTESTINAL Abdominal: Present soft, Present nontender, Present bowel sounds normal GENITOURINARY Genitourinary: Present exam deferred SKIN Skin: Present warm, Present dry MUSCULOSKELETAL Musculoskeletal: Present ROM normal, Present other (BILAT BKA'S) NEUROLOGICAL Neurological: Present no gross motor or sensory deficits, Present other (RESPONDS TO VERBAL STIMULI, ORIENTED TO NAME ONLY) PSYCHOLOGICAL Psychological: Present mood/affect normal, Present judgement normal Results Laboratory Result Diagram: 12/26/19 1330 12/26/19 1330 Laboratory Laboratory Tests Test 12/26/19 13:30 White Blood Count 20.20 x10e3/uL (4.8-10.8) Red Blood Count 2.37 x10e6/uL (4.3-5.7) Hemoglobin 6.7 g/dL (14.0-18.0) Hematocrit 22.1 % (38.2-49.6) Mean Corpuscular Volume 93.2 fL (81-99) Mean Corpuscular Hemoglobin 28.3 pg (28-32) Mean Corpuscular Hemoglobin Concent 30.3 g/dL (31-35) Red Cell Distribution Width 14.8 % (11.7-14.4) Platelet Count 312 x10e3/uL (140-360) Neutrophils (%) (Auto) 86.9 % (38.7-80.0) Lymphocytes (%) (Auto) 7.2 % (18.0-39.1) Monocytes (%) (Auto) 4.3 % (4.4-11.3) Eosinophils (%) (Auto) 0.1 % (0.0-6.0) Basophils (%) (Auto) 0.4 % (0.0-1.0) Neutrophils # (Auto) 17.6 (2.1-6.9) Lymphocytes # (Auto) 1.5 (1.0-3.2) Monocytes # (Auto) 0.9 (0.2-0.8) Eosinophils # (Auto) 0.0 (0.0-0.4) Basophils # (Auto) 0.1 (0.0-0.1) Absolute Immature Granulocyte (auto 0.22 x10e3/uL (0-0.1) Prothrombin Time 15.0 seconds (11.9-14.5) Prothromb Time International Ratio 1.12 Activated Partial Thromboplast Time 39.4 seconds (23.8-35.5) Urine Color Yellow (YELLOW) Urine Clarity Sl cloudy (CLEAR) Urine pH 5.5 (5 - 7) Urine Specific [place] 1.020 (1.010-1.025) Urine Protein 1+ (NEGATIVE) Urine Glucose (UA) Negative (NEGATIVE) Urine Ketones Negative (NEGATIVE) Urine Blood Negative (NEGATIVE) Urine Nitrite Negative (NEGATIVE) Urine Bilirubin Negative (NEGATIVE) Urine Urobilinogen 0.2 mg/dL (0.2 - 1) Urine Leukocyte Esterase Moderate (NEGATIVE) Urine RBC 0-5 /HPF (0-5) Urine WBC 11-20 /HPF (0-5) Urine Epithelial Cells Few /LPF (NONE) Urine Bacteria Many /HPF (NONE) Urine Yeast Moderate (NONE) Sodium Level 143 mmol/L (136-145) Potassium Level 4.4 mmol/L (3.5-5.1) Chloride Level 109 mmol/L (98-107) Carbon Dioxide Level 20 mmol/L (22-29) Anion Gap 18.4 mmol/L (8-16) Blood Urea Nitrogen 44 mg/dL (7-26) Creatinine 1.47 mg/dL (0.72-1.25) Estimat Glomerular Filtration Rate 46 ML/MIN (60-) BUN/Creatinine Ratio 30 (6-25) Glucose Level 104 mg/dL (74-118) Lactic Acid Level 1.2 mmol/L (0.5-2.0) Calcium Level 8.5 mg/dL (8.4-10.2) Magnesium Level 1.7 MG/DL (1.3-2.1) Total Bilirubin 0.2 mg/dL (0.2-1.2) Aspartate Amino Transf (AST/SGOT) 8 IU/L (5-34) Alanine Aminotransferase (ALT/SGPT) 7 IU/L (0-55) Alkaline Phosphatase 86 IU/L (40-150) Ammonia 73 UG/DL (31-123) Creatine Kinase 18 IU/L (30-200) Creatine Kinase MB 0.40 ng/mL (0-5.0) Troponin I 0.025 ng/mL (0-0.300) B-Type Natriuretic Peptide 60.8 pg/mL (0-100) Total Protein 6.9 g/dL (6.5-8.1) Albumin 3.3 g/dL (3.5-5.0) Globulin 3.6 g/dL (2.3-3.5) Albumin/Globulin Ratio 0.9 (0.8-2.0) Lab results reviewed: Yes Imaging Imaging results reviewed: Yes Procedures 12 Lead ECG Interpretation ECG Interpretation : ECG: ECG 1 Engine Emission Technician: Interpreted by ED physician Date: Dec 26, 2019 Time: 15:07 Rhythm: sinus tachycardia (1ST DEGREE AVB) Rate: tachycardia (102) QRS axis: normal Conduction: intraventricular conduction delay ST segments normal: Yes T wave inversion: III Clinical Impression: abnormal ECG Critical Care Time Total Critical Care Time (min): 45 Critical care time exclusive o: separately billable procedures Critcal care necessary due to: circulatory failure, STARCH COOKER failure or compromise Critcal care time spent by me: discussion w primary provider, evaluation patient response to tx, order/perform tx or interventions, order/review laboratory studies, order/review radiographic studies, pulse oximetry, re- evaluation of patient condition Assessment & Plan Medical Decision Making MDM CBC, CHEM, CARDIACS, ECG, NH3, LACTIC, UA/CX, BLD CX'S, CT BRAIN/C-SPINE, CXR, COVID SWAB - R/O INFECTION/UTI/PNEUMONIA/SEPSIS, COVID19, ENCEPHALOPATHY, STEMI/NSTEMI, CVA, CEREBRAL BLEED Reassessment Reassessment PT IMPROVING WITH IVF'S, IV ABX'S. D/W ADMITTING DOCTOR S HOGUE Assessment & Plan Final Impression: (1) UTI (urinary tract infection) (2) Altered mental status (3) Anemia Depart Disposition: ADMITTED Last Vital Signs Date Time Temp Pulse Resp B/P (MAP) Pulse Ox O2 Delivery O2 Flow Rate FiO2 12/26/19 14:15 98.1 78 16 124/75 99 Room Air 12/26/19 13:52 2.0 Medications in the ED Sodium Chloride 1,000 ml @ 0 mls/hr Q0M STAT IV Last administered on 12/26/19at 15:12; Admin Dose 125 MLS/HR; Start 12/26/19 at 13:30; Stop 12/26/19 at 13:36; Status DC Meropenem 100 ml @ 100 mls/hr NOW ONCE IV Last administered on 12/26/19at 17:17; Admin Dose 100 MLS/HR; Start 12/26/19 at 15:45; Stop 12/26/19 at 16:44; Status DC Fluconazole 100 ml @ 100 mls/hr NOW ONCE IV ; Start 12/26/19 at 17:30; Stop 12/26/19 at 18:29 Ondansetron HCl 4 mg Q4H PRN IV NAUSEA AND VOMITING; Start 12/26/19 at 18:00; Stop 01/25/20 at 17:59 Sodium Chloride 1,000 ml @ 100 mls/hr Q10H IV ; Start 12/26/19 at 18:00; Stop 12/27/19 at 03:59 Meropenem 100 ml @ 100 mls/hr Q12H IV ; Start 12/27/19 at 05:00; Stop 01/03/20 at 04:59 LIOR PERKINS MD Dec 26, 2019 18:32
--- OUTSIDE RECORDS SUMMARY | 2019-12-26 18:35 | XMS REPORT | Continuity of Care Document ---
Author Author [facility] Organization [facility] Address [address] [place] [address] Phone Unavailable Care Team Providers Care Coil Winding Supervisor Name Role Phone MADDIE Devante LIOR Attphys Unavailable Payers Payer Name Policy Type Policy Number Effective Date Expiration Date S ource Problems This patient has no known problems. Allergies, Adverse Reactions, Alerts Allergy Name Allergy Type Status Severity Reaction(s) Onset Date Inacti ve Date Treating Clinician Comments Source morphine DA Active U 2019-11-14 00:00:00 [facility] morphine DA Active U 2019-05-23 00:00:00 [facility] morphine DA Active U 2019-03-03 00:00:00 [facility] morphine DA Active U 2018-12-06 00:00:00 [facility] morphine DA Active U 2018-07-22 00:00:00 [facility] No Known Allergies DA Active U 2018-06-22 00:00:00 [facility] Medications This patient has no known medications. Procedures This patient has no known procedures. Results Test Description Test Time Test Comments Results Result Comments Source CT CERVICAL SPINE WO 2019-12-26 15:36:00 [facility] [address] [place], [place] [address] Patient Name: XOCHILT EPSTEIN MR #: [id number] : 1940 Age/Sex: 79/M Req #: [id number] [facility] Physician: Ordered by: LIOR PERKINS MD Report #: [id number] Location: Room/Bed: Procedure: [id number] CT/CT CERVICAL SPINE WO Exam Date: 12/26/19 Exam Time: 1400 REPORT STATUS: Signed Examination: CT CERVICAL SPINE WO CONTRAST HISTORY:Altered mental status. COMPARISON:None. TECHNIQUE: Multidetector helical axial images were obtained without contrast from the foramen magnum to T1. Coronal and sagittal reformatted images were done. Bone and soft tissue windows were evaluated. Dose modulation, iterative reconstruction, and/or weight based adjustment of the mA/kV was utilized to reduce the radiation dose to as low as reasonably achievable. FINDINGS: Alignment:Normal alignment and lordosis. Vertebrae: Underlying anterior discectomy and fusion at C5 and C6. Disc space heights: Remaining disc spaces are normal in height. Caliber of spinal canal: Developmentally normal. Posterior fossa and craniocervical junction: Foramen magnum patent. No Chiari 1 malformation. Soft tissues: Atherosclerotic calcification of the bilateral carotid bifurcations. Degenerative changes: No disc bulge/ herniation or foraminal or canal stenosis. Visualized lung apices: No abnormalities. IMPRESSION: No acute abnormalities. Signed by: Dr. Elizabeth Breaux M.D. on 12/26/2019 3:41 PM Dictated By: ELIZABETH ROMAN MD 1541 Transcribed By: ANTONIO on 12/26/19 1541 COPY TO: LIOR PERKINS MD CT BRAIN WO 2019-12-26 15:33:00 [facility] [place] [address] Patient Name: XOCHILT EPSTEIN MR #: [id number] : 1940 Age[facility]Sex: 79[id number] #: [id number] [facility] Physician: Ordered by: LIOR PERKINS MD Report #: [id number] Location: ER Room/Bed: Procedure: [id number] CT/CT BRAIN WO Exam Date: 12/26/19 Exam Time: 1400 REPORT STATUS: Signed Examination: CT head without contrast Clinical Indication: N [facility] [id number] 1400; altered mental status. Technique: Transaxial noncontrast images from the skull base through the vertex were obtained. Sagittal and coronal reformatted images were done. Dose modulation, iterative reconstruction, and/or weight based adjustment of the mA/kV was utilized to reduce the radiation dose to as low as reasonably achievable. Comparison: None. Findings: Scalp: No abnormalities. Bones: Intact. No fractures. No blastic or lytic lesions. Brain sulci: Generalized volume loss for patient's age. Ventricles: No hydrocephalus. Extra-axial space: No abnormalities. Parenchyma: There are mild confluent areas of low-attenuation within subcortical and periventricular white matter, nonspecific, but could represent microvascular ischemic disease. Age- indeterminate cortical-based encephalomalacia of the left lingual gyrus. No masses or hemorrhage. Suprasellar region: No abnormalities. Craniocervical junction: The foramen magnum is patent. No Chiari one malformation. Incidental findings: Atherosclerotic calcification of the cavernous and supraclinoid internal carotid and V4 segments of the bilateral vertebral arteries. Opacified right middle ear cavity. Sclerotic left mastoid air cells. Impression: 1. 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 2. Chronic microvascular ischemic change. 3. Generalized volume loss. Signed by: Dr. Elizabeth Breaux M.D. on 12/26/2019 3:36 PM Dictated By: ELIZABETH ROMAN MD 35 Transcribed By: ANOTNIO on 12/26/191535 COPY TO: LIOR PERKINS MD CHEST SINGLE (PORTABLE) 2019-12-26 14:29:00 [place] [address] Patient Name: XOCHILT EPSTEIN MR #: [id number] : 1940 Age/Sex: 79/M Req #: [id number] Physician: Ordered by: LIOR PERKINS MD Report #: [id number] Location: ER Room/Bed: Procedure: [id number] DX/CHEST SINGLE (PORTABLE) Exam Date: 12/26/19 Exam Time: 1400 REPORT STATUS: Signed TECHNIQUE: Frontal view of the chest. INDICATION: AMS [id number] 1400 COMPARISON: None DISCUSSION: Limited evaluation due [...] 251 mg/dL 74-106 H Performed by certified flexboard operator at [facility] [id number] 16:52:00* Test Item Value Reference Range Interpretation Comments GLUBED (test code = GLUBED) 218 mg/dL 74-106 H Performed by certified flexboard operator at [facility] [id number] 12:39:00* Test Item Value Reference Range Interpretation Comments GLUBED (test code = GLUBED) 174 mg/dL 74-106 H Performed by certified flexboard operator at [facility] [id number] 10:03:00* Test Item Value Reference Range Interpretation Comments GLUBED (test code = GLUBED) 146 mg/dL 74-106 H Performed by certified flexboard operator at [facility] [id number] 20:58:00* Test Item Value Reference Range Interpretation Comments GLUBED (test code = GLUBED) 168 mg/dL 74-106 H Performed by certified flexboard operator at [facility] [id number] 17:08:00* Test Item Value Reference Range Interpretation Comments GLUBED (test code = GLUBED) 162 mg/dL 74-106 H Performed by certified flexboard operator at [facility] [id number] 12:23:00* Test Item Value Reference Range Interpretation Comments GLUBED (test code = GLUBED) 192 mg/dL 74-106 H Performed by certified flexboard operator at [facility] [id number] 08:39:00* Test Item Value Reference Range Interpretation Comments GLUBED (test code = GLUBED) 139 mg/dL 74-106 H Performed by certified flexboard operator at [facility] [id number] 21:12:00* Test Item Value Reference Range Interpretation Comments GLUBED (test code = GLUBED) 256 mg/dL 74-106 H Performed by certified flexboard operator at [facility] - CHST W/[id number] 19:31:00 Name: XOCHILT EPSTEIN [facility] : 1940 Age/S: 78 / M Thiago Jeffery Unit #: [id number] Loc: [place], [place] [address] Phys: Carrie Ballard MD Acct: [id number] Dis Date: Status: ADM IN PHONE #: [phone] Exam Date: 11/18/2019 1700 FAX #: [phone] Reason: right effusion EXAMS: CPT CODE: [id number] US CHST W/MEDIASTINUM 21545 EXAM: Ultrasound of the chest; INFORMATION: Covid positive; pleural effusion? IMPRESSION: No evidence of pleural effusions. Location code: [facility] at 193 Reported and signed by: Guille Liao M.D. CC: Miquel Jeffers MD; Faustino Ramirez; Carrie Ballard MD Technologist: JENNIFER GILL RT(R),[facility] Trniab Date/Time: 11/18/2019 (1930) t.SDR.GRW Orig Print D/T: S: 11/19/2019 (1316) Probe: PAGE 1 Signed Report [id number] 15:59:00* Test Item Value Reference Range Interpretation Comments GLUBED (test code = GLUBED) 232 mg/dL 74-106 H Performed by certified flexboard operator at [facility] [id number] 12:11:00* Test Item Value Reference Range Interpretation Comments GLUBED (test code = GLUBED) 176 mg/dL 74-106 H Performed by certified flexboard operator at [facility] [id number] 08:18:00* Test Item Value Reference Range Interpretation Comments GLUBED (test code = GLUBED) 142 mg/dL 74-106 H Performed by certified flexboard operator at [facility] - XR CHEST 1 [id number] 08:15:00 FAX: Miquel Jeffers MD [phone] [place]: St: ADM FAX: Faustino Phelan DO [phone] FAX: Carrie Adams MD [phone] Name: XOCHILT EPSTEIN [facility] : 1940 Age/S: 78/M [address] [facility] Unit #: [id number] Loc: [address] [place] [address] Phys: Carrie Ballard MD Acct: [id number] Dis Date: Status: ADM IN ONE #: [phone] Exam Date: 11/18/2019 0758 FAX #: [phone] Reason: COVID EXAMS: CPT CODE: [id number] XR CHEST 1 V 57239 REASON FOR EXAM: COVID Exam Order Date: [...] IMPRESSION: No change from prior exam. Location: [facility] at 0815 Reported and signed by: Anupam Beltran MD CC: Miquel Jeffers MD; Faustino Ramirez; Carrie Ballard MD Technologist: WILDA WILLIAM JR RT(R) Trnscrd Date/Time/By: (08) : By: [email or web address] Orig Print D/T: S: 11/18/2019 (927) PAGE 1 Signed Report CBC W/MANUAL [id number] 07:23:00* Test Item Value Reference Range Interpretation [...] IMMAT) 0 % 0-0 N COMPREHENSIVE METABOLIC [id number] 07:09:00* Test Item Value Reference Range Interpretation [...] due to change in reagent. CBC W/MANUAL [id number] 07:01:00* Test Item Value Reference Range Interpretation [...] MORPHOLOGY (test code = PLTMORPH) CBC W/MANUAL [id number] 07:01:00* Test Item Value Reference Range Interpretation [...] MORPHOLOGY (test code = PLTMORPH) CBC W/MANUAL [id number] 07:01:00* Test Item Value Reference Range Interpretation [...] MORPHOLOGY (test code = PLTMORPH) CBC W/MANUAL [id number] 07:01:00* Test Item Value Reference Range Interpretation [...] MORPHOLOGY (test code = PLTMORPH) CBC W/MANUAL [id number] 07:01:00* Test Item Value Reference Range Interpretation [...] MORPHOLOGY (test code = PLTMORPH) COMPREHENSIVE METABOLIC [id number] 06:58:00* Test Item Value Reference Range Interpretation [...] TOTAL (test code = ALKP) IUnit/L 45-117 [id number] 21:31:00* Test Item Value Reference Range Interpretation Comments GLUBED (test code = GLUBED) 211 mg/dL 74-106 H Performed by certified flexboard operator at [facility] [id number] 17:07:00* Test Item Value Reference Range Interpretation Comments GLUBED (test code = GLUBED) 212 mg/dL 74-106 H Performed by certified flexboard operator at [facility] [id number] 11:06:00* Test Item Value Reference Range Interpretation Comments GLUBED (test code = GLUBED) 161 mg/dL 74-106 H Performed by certified flexboard operator at [facility] [id number] 08:12:00* Test Item Value Reference Range Interpretation Comments GLUBED (test code = GLUBED) 180 mg/dL 74-106 H Performed by certified flexboard operator at [facility] COMPREHENSIVE METABOLIC [id number] 05:29:00* Test Item Value Reference Range Interpretation [...] due to change in reagent. COMPREHENSIVE METABOLIC [id number] 05:11:00* Test Item Value Reference Range Interpretation [...] code = ALKP) IUnit/L 45-117 CBC W/AUTO [id number] 04:54:00* Test Item Value Reference Range Interpretation [...] DIFF REQUIRED (test code = MDIFF) NO [id number] 20:33:00* Test Item Value Reference Range Interpretation Comments GLUBED (test code = GLUBED) 216 mg/dL 74-106 H Performed by certified flexboard operator at [facility] [id number] 16:32:00* Test Item Value Reference Range Interpretation Comments GLUBED (test code = GLUBED) 233 mg/dL 74-106 H Performed by certified flexboard operator at [facility] [id number] 11:45:00* Test Item Value Reference Range Interpretation Comments GLUBED (test code = GLUBED) 261 mg/dL 74-106 H Performed by certified flexboard operator at [facility] CBC W/MANUAL [id number] 10:38:00* Test Item Value Reference Range Interpretation [...] code = IMMAT) 0 % 0-0 N [id number] 08:48:00* Test Item Value Reference Range Interpretation Comments GLUBED (test code = GLUBED) 140 mg/dL 74-106 H Performed by certified flexboard operator at [facility] COMPREHENSIVE METABOLIC [id number] 08:02:00* Test Item Value Reference Range Interpretation [...] reference range due to change in reagent. [id number] 08:02:00* Test Item Value Reference Range Interpretation Comments MAGNESIUM (test code = MAG) 2.0 mg/dL 1.8-2.4 N [id number] 07:41:00* Test Item Value Reference Range Interpretation Comments TROPONIN-I (test code = TROPI) <0.015 ng/mL 0-0.045 N CBC W/MANUAL [id number] 07:03:00* Test Item Value Reference Range Interpretation [...] MORPHOLOGY (test code = PLTMORPH) CBC W/MANUAL [id number] 07:03:00* Test Item Value Reference Range Interpretation [...] MORPHOLOGY (test code = PLTMORPH) CBC W/MANUAL [id number] 07:03:00* Test Item Value Reference Range Interpretation [...] MORPHOLOGY (test code = PLTMORPH) CBC W/MANUAL [id number] 07:02:00* Test Item Value Reference Range Interpretation [...] MORPHOLOGY (test code = PLTMORPH) CBC W/MANUAL [id number] 07:02:00* Test Item Value Reference Range Interpretation [...] PLTEST) PLATELET MORPHOLOGY (test code = PLTMORPH) [id number] 20:29:00* Test Item Value Reference Range Interpretation Comments GLUBED (test code = GLUBED) 189 mg/dL 74-106 H Performed by certified flexboard operator at [facility] [id number] 17:58:00* Test Item Value Reference Range Interpretation Comments GLUBED (test code = GLUBED) 129 mg/dL 74-106 H Performed by certified flexboard operator at [facility] [id number] 13:40:00* Test Item Value Reference Range Interpretation Comments GLUBED (test code = GLUBED) 96 mg/dL 74-106 N Performed by certified flexboard operator at [facility] [id number] 13:05:00* Test Item Value Reference Range Interpretation Comments GLUBED (test code = GLUBED) 121 mg/dL 74-106 H Performed by certified flexboard operator at [facility] [id number] 09:06:00* Test Item Value Reference Range Interpretation Comments GLUBED (test code = GLUBED) 64 mg/dL 74-106 L Performed by certified flexboard operator at [facility] [id number] 08:28:00* Test Item Value Reference Range Interpretation Comments TROPONIN-I (test code = TROPI) 0.022 ng/mL 0-0.045 N COMMENTS TO PROMOTIONS ASSISTANT SALES MARKETING: COLLECT 3 HOURS AFTER PREVIOUS [id number] 07:47:00* Test Item Value Reference Range Interpretation [...] pneumonia, severe skin infections -Liver cirrhosis - [id number] 07:38:00* Test Item Value Reference Range Interpretation Comments D-DIMER (test code = DDIMER) 1049.00 ng/mLFEU 0-500 HH RESULT VERIFIED BY REPEAT ANALYSISResults called to by [facility] 11/15/19 0737Critical results verified and read back [...] skin infections -Liver cirrhosis - COMPREHENSIVE METABOLIC [id number] 07:21:00* Test Item Value Reference Range Interpretation [...] due to change in reagent. THYROID STIMULATING [id number] 07:21:00* Test Item Value Reference Range Interpretation Comments THYROID STIMULATING HORMONE (test code = TSH) 3.120 uIU/mL 0.36-3.7 4 N TSH REFERENCE RANGES: EUTHYROID: 0.35 - 4.3 mIU/mL HYPO : > 5.5 mIU/mL HYPER : < 0.35 mIU/mL [id number] 07:11:00* Test Item Value Reference Range Interpretation Comments TROPONIN-I (test code = TROPI) 0.022 ng/mL 0-0.045 N COMMENTS TO PROMOTIONS ASSISTANT SALES MARKETING: COLLECT 3 HOURS AFTER PREVIOUS SAMPLECBC W/MANUAL [id number] 07:00:00* Test Item Value Reference Range Interpretation [...] IMMAT) 0 % 0-0 N COMPREHENSIVE METABOLIC [id number] 07:00:00* Test Item Value Reference Range Interpretation [...] code = ALKP) IUnit/L 45-117 THYROID STIMULATING [id number] 07:00:00* Test Item Value Reference Range Interpretation Comments THYROID STIMULATING HORMONE (test code = TSH) uIU/mL 0.36-3.7 4 CBC W/MANUAL [id number] 06:37:00* Test Item Value Reference Range Interpretation [...] MORPHOLOGY (test code = PLTMORPH) CBC W/MANUAL [id number] 06:37:00* Test Item Value Reference Range Interpretation [...] MORPHOLOGY (test code = PLTMORPH) CBC W/MANUAL [id number] 06:37:00* Test Item Value Reference Range Interpretation [...] MORPHOLOGY (test code = PLTMORPH) CBC W/MANUAL [id number] 06:37:00* Test Item Value Reference Range Interpretation [...] MORPHOLOGY (test code = PLTMORPH) CBC W/MANUAL [id number] 06:37:00* Test Item Value Reference Range Interpretation [...] PLATELET MORPHOLOGY (test code = PLTMORPH) LACTIC [id number] 06:22:00* Test Item Value Reference Range Interpretation Comments LACTIC ACID (test code = LACT) 0.8 mmol/L 0.4-1.9 N PROTHROMBIN [id number] 06:18:00* Test Item Value Reference Range Interpretation [...] (2.5-3.5) IS PATIENT ON ANTICOAGULANTS? NTHROMBOPLASTIN TIME [id number] 06:18:00* Test Item Value Reference Range Interpretation Comments THROMBOPLASTIN TIME PARTIAL (test code = PTT) 36.6 seconds 23.0-37. 0 N IS PATIENT ON ANTICOAGULANTS? [id number] 23:08:00* Test Item Value Reference Range Interpretation Comments GLUBED (test code = GLUBED) 176 mg/dL 74-106 H Performed by certified flexboard operator at [facility] [id number] 22:45:00* Test Item Value Reference Range Interpretation Comments GLUBED (test code = GLUBED) 57 mg/dL 74-106 L Performed by certified flexboard operator at [facility] [id number] 20:49:00* Test Item Value Reference Range Interpretation Comments D-DIMER (test code = DDIMER) 1197.00 ng/mLFEU 0-500 HH Results called to [id number] by BLAINE 11/14/192047Critical results verified and read back by Nurse? [...] code = LDH) 251 IUnit/L 84-246 H [id number] 20:34:00* Test Item Value Reference Range Interpretation Comments FERRITIN (test code = LUCIUS) 1439 ng/mL 8-388 H C REACTIVE [id number] 20:27:00* Test Item Value Reference Range Interpretation Comments C REACTIVE PROTEIN (test code = CRP) 12.40 mg/dL 0-0.3 H COVID 19 INHOUSE [id number] 18:45:00* Test Item Value Reference Range Interpretation Comments COVID 19 INHOUSE AG (test code = VWTFO57YBMH) POSITIVE BASIC METABOLIC [id number] 18:45:00* Test Item Value Reference Range Interpretation [...] CA) 8.6 mg/dL 8.5-10.1 N HEPATIC FUNCTION [id number] 18:45:00* Test Item Value Reference Range Interpretation [...] reference range due to change in reagent. [id number] 18:45:00* Test Item Value Reference Range Interpretation Comments LIPASE (test code = LIP) 217 U/L 73.0-393.0 N [id number] 18:45:00* Test Item Value Reference Range Interpretation Comments TROPONIN-I (test code = TROPI) 0.015 ng/mL 0-0.045 N BASIC METABOLIC [id number] 18:36:00* Test Item Value Reference Range Interpretation [...] code = CA) mg/dL 8.5-10.1 HEPATIC FUNCTION [id number] 18:36:00* Test Item Value Reference Range Interpretation [...] TOTAL (test code = ALKP) IUnit/L 45-117 [id number] 18:36:00* Test Item Value Reference Range Interpretation Comments LIPASE (test code = LIP) U/L 73.0-393.0 [id number] 18:36:00* Test Item Value Reference Range Interpretation Comments TROPONIN-I (test code = TROPI) ng/mL 0-0.045 URINALYSIS [id number] 18:26:00* Test Item Value Reference Range Interpretation [...] Urine Source? Clean Catch- XR CHEST 1 [id number] 18:18:00 FAX: Faustino Phelan DO [phone] [place]: St: REG FAX: Nicole Farah DO Name: XOCHILT EPSTEIN [facility] : 1940 Age/S: 78/M [address] [facility] Unit #: [id number] Loc: [place] [address] Phys: Nicole Farah DO Acct: [id number] Dis Date: Status: REG ER PHONE #: [phone] Exam Date: 11/14/2019 180 FAX #: [phone] Reason: WEAKNESS EXAMS: CPT CODE: [id number] XR CHEST 1 V 81533 HISTORY: Failure to thrive. COMPARISON: December 06, 2018. Location: . No acute infiltrates, effusion or congestion is noted. Dependent changes. Mild cardiomegaly. Elevated right hemidiaphragm. IMPRESSION: No acute inf iltrates, effusion or congestion. at 1818 Reported and signed by: Bernarda David M.D. CC: Faustino Ramirez; Pham Farah DO Technologist: ALEXANDRA ROSALES, RT(R) Trnscrd Date/Time/By: 11/14/2019 (1817) : By: [email or web address] O rig Print D/T: S: 11/14/2019 (1820) PAGE 1 Signed Report CBC W/O [id number] 18:17:00* Test Item Value Reference Range Interpretation [...] code = MPV) 9.4 fL 6.7-11.0 N [id number] 11:40:00* Test Item Value Reference Range Interpretation Comments GLUBED (test code = GLUBED) 153 mg/dL 74-106 H Performed by certified flexboard operator at [facility] [id number] 07:44:00* Test Item Value Reference Range Interpretation Comments GLUBED (test code = GLUBED) 67 mg/dL 74-106 L Performed by certified flexboard operator at [facility] BASIC METABOLIC [id number] 06:10:00* Test Item Value Reference Range Interpretation [...] CA) 7.9 mg/dL 8.5-10.1 L CBC W/AUTO [id number] 05:57:00* Test Item Value Reference Range Interpretation [...] (test code = MDIFF) NO BASIC METABOLIC [id number] 05:53:00* Test Item Value Reference Range Interpretation [...] CALCIUM (test code = CA) mg/dL 8.5-10.1 [id number] 20:55:00* Test Item Value Reference Range Interpretation Comments GLUBED (test code = GLUBED) 73 mg/dL 74-106 L Performed by certified flexboard operator at [facility] [id number] 16:42:00* Test Item Value Reference Range Interpretation Comments GLUBED (test code = GLUBED) 108 mg/dL 74-106 H Performed by certified flexboard operator at [facility] [id number] 11:02:00* Test Item Value Reference Range Interpretation Comments GLUBED (test code = GLUBED) 203 mg/dL 74-106 H Performed by certified flexboard operator at [facility] [id number] 08:45:00* Test Item Value Reference Range Interpretation Comments GLUBED (test code = GLUBED) 73 mg/dL 74-106 L Performed by certified flexboard operator at [facility] [id number] 06:31:00* Test Item Value Reference Range Interpretation Comments GLUBED (test code = GLUBED) 72 mg/dL 74-106 L Performed by certified flexboard operator at [facility] [id number] 23:48:00* Test Item Value Reference Range Interpretation Comments GLUBED (test code = GLUBED) 140 mg/dL 74-106 H Performed by certified flexboard operator at [facility] - XR ABDOMEN AP 1 [id number] 22:00:00 FAX: Miquel Jeffers MD [phone] [place]: St: ADM FAX: Stepan Nice NP [phone] FAX: Faustino Phelan DO [phone] Name: XOCHILT EPSTEIN [facility] : 1940 Age/S: 78/M [address] [facility] Unit #: [id number] Loc: V.[address] [place] [address] Phys: Stepan Nice NP Acct: [id number] Dis Date: Status: ADM IN ONE #: [phone] Exam Date: 11/08/20192145 FAX #: [phone] Reason: constipation EXAMS: CPT CODE: [id number] XR ABDOMEN AP 1 V 67802 HISTORY: cons tipation, UTI TECHNIQUE: AP abdomen [...] CONLEY(R); Mari Albarado(R) Trn scrd Date/Time/By: 11/08/2019 (0) : By: [email or web address] PAGE 1 Signed Report [id number] 20:21:00* Test Item Value Reference Range Interpretation Comments GLUBED (test code = GLUBED) 62 mg/dL 74-106 L Performed by certified flexboard operator at [facility] [id number] 17:25:00* Test Item Value Reference Range Interpretation Comments GLUBED (test code = GLUBED) 65 mg/dL 74-106 L Performed by certified flexboard operator at [facility] [id number] 16:39:00* Test Item Value Reference Range Interpretation Comments GLUBED (test code = GLUBED) 67 mg/dL 74-106 L Performed by certified flexboard operator at [facility] [id number] 11:41:00* Test Item Value Reference Range Interpretation Comments GLUBED (test code = GLUBED) 81 mg/dL 74-106 N Performed by certified flexboard operator at [facility] [id number] 09:24:00* Test Item Value Reference Range Interpretation Comments GLUBED (test code = GLUBED) 66 mg/dL 74-106 L Performed by certified flexboard operator at [facility] [id number] 08:14:00* Test Item Value Reference Range Interpretation Comments GLUBED (test code = GLUBED) 54 mg/dL 74-106 L Performed by certified flexboard operator at [facility] BLOOD UREA [id number] 06:03:00* Test Item Value Reference Range Interpretation Comments BLOOD UREA NITROGEN (test code = BUN) 35 mg/dL 7-18 H CREATININE W ESTIMATED [id number] 06:03:00* Test Item Value Reference Range Interpretation Comments GLOMERULAR FILTRATION RATE (test code = GFR) 53 mL/min >=60 Estimated GFR by using Modified MDRD formula.Chronic kidney disease is defined as either kidney damageor GFR <60 mL/min/1.73 m2 for >3 months. CREATININE (test code = CREAT) 1.30 mg/dL 0.7-1.3 N [id number] 20:30:00* Test Item Value Reference Range Interpretation Comments GLUBED (test code = GLUBED) 81 mg/dL 74-106 N Performed by certified flexboard operator at [facility] [id number] 16:33:00* Test Item Value Reference Range Interpretation Comments GLUBED (test code = GLUBED) 100 mg/dL 74-106 N Performed by certified flexboard operator at [facility] BASIC METABOLIC [id number] 13:55:00* Test Item Value Reference Range Interpretation [...] CA) 8.0 mg/dL 8.5-10.1 L BASIC METABOLIC [id number] 13:51:00* Test Item Value Reference Range Interpretation [...] code = CA) mg/dL 8.5-10.1 CBC W/AUTO [id number] 13:35:00* Test Item Value Reference Range Interpretation [...] code = NRBC#) 0.00 K/mm3 0.0-0.1 N [id number] 12:15:00* Test Item Value Reference Range Interpretation Comments GLUBED (test code = GLUBED) 104 mg/dL 74-106 N Performed by certified flexboard operator at [facility] [id number] 08:47:00* Test Item Value Reference Range Interpretation Comments GLUBED (test code = GLUBED) 88 mg/dL 74-106 N Performed by certified flexboard operator at [facility] [id number] 20:10:00* Test Item Value Reference Range Interpretation Comments GLUBED (test code = GLUBED) 76 mg/dL 74-106 N Performed by certified flexboard operator at [facility] [id number] 16:39:00* Test Item Value Reference Range Interpretation Comments GLUBED (test code = GLUBED) 99 mg/dL 74-106 N Per[facility] certified flexboard operator [facility]~ BASIC METABOLIC [id number] 14:08:00* Test Item Value Reference Range Interpretation [...] CA) 8.2 mg/dL 8.5-10.1 L CBC W/AUTO [id number] 13:03:00* Test Item Value Reference Range Interpretation [...] DIFF REQUIRED (test code = MDIFF) NO [id number] 12:39:00* Test Item Value Reference Range Interpretation Comments GLUBED (test code = GLUBED) 127 mg/dL 74-106 H Performed by certified flexboard operator at [facility] [id number] 07:43:00* Test Item Value Reference Range Interpretation Comments GLUBED (test code = GLUBED) 160 mg/dL 74-106 H Performed by certified flexboard operator at [facility] URINALYSIS [id number] 18:29:00* Test Item Value Reference Range Interpretation [...] Urine Source? Clean Catch- CT ABD PELVIS [id number] 18:03:00 Name: XOCHILT EPSTEIN [facility] : 1940 Age/S: 78 / M [address] Unit #: [id number] Loc: [place] [address] Phys: Elvis Wheeler MD Acct: [id number] Di s Date: Status: REG ER PHONE #: [phone] Exam Date: 11/05/2019 1700 FAX #: Reason: severe pain, swelling around suprapubic site EXAMS: CPT CODE: [id number] CT ABD PELVIS W/CONT 51759 EXAM: CT of the abdomen a nd [...] obstruction. 5. Extensive vascular calcifications. Location code: [facility] Electronically Sig harmony by David Liao on 11/05/2019 at 1803 Reported and signed by: Guille Liao M.D. PAGE 1 Signed Report (CONTINUED) Name: XOCHILT EPSTEIN [facility] : 1940 Age/S: 78 / M [address] [facility] Unit #: [id number] Loc: [place] [address] Phys: Igor Wheeler MD Acct: [id number] Dis Date: Status: REG ER PHONE #: [phone] Exam Date: 11/05/2019 1700 FAX #: [phone] Reason: severe pain, swelling around suprapubic site EXAMS: CPT CODE: [id number] CT ABD PELVIS W/CONT 74955 <Continued> CC: Faustino Rmairez; Prasanna Wheeler MD Technologist:Elissa Rodriguez RT(R); TELLY Zurita CTDI: DLP: Trnscb Date/Time: 11/05/2019 (1802) [email or web address] Orig Print D/T: S: 11/05/2019 (1806) PAGE 2 Signed Report BASIC METABOLIC [id number] 16:16:00* Test Item Value Reference Range Interpretation [...] CA) 8.4 mg/dL 8.5-10.1 L HEPATIC FUNCTION [id number] 16:16:00* Test Item Value Reference Range Interpretation [...] reference range due to change in reagent. [id number] 16:16:00* Test Item Value Reference Range Interpretation Comments LIPASE (test code = LIP) 176 U/L 73.0-393.0 N [id number] 16:16:00* Test Item Value Reference Range Interpretation Comments TROPONIN-I (test code = TROPI) <0.015 ng/mL 0-0.045 N BASIC METABOLIC [id number] 16:06:00* Test Item Value Reference Range Interpretation [...] code = CA) mg/dL 8.5-10.1 HEPATIC FUNCTION [id number] 16:06:00* Test Item Value Reference Range Interpretation [...] TOTAL (test code = ALKP) IUnit/L 45-117 [id number] 16:06:00* Test Item Value Reference Range Interpretation Comments LIPASE (test code = LIP) U/L 73.0-393.0 [id number] 16:06:00* Test Item Value Reference Range Interpretation Comments TROPONIN-I (test code = TROPI) ng/mL 0-0.045 CBC W/O [id number] 15:56:00* Test Item Value Reference Range Interpretation [...] code = MPV) 9.5 fL 6.7-11.0 N [id number] 12:59:00* Test Item Value Reference Range Interpretation Comments GLUBED (test code = GLUBED) 139 mg/dL 74-106 H Performed by certified flexboard operator at [facility] [id number] 06:01:00* Test Item Value Reference Range Interpretation Comments GLUBED (test code = GLUBED) 110 mg/dL 74-106 H Performed by certified flexboard operator at [facility] BASIC METABOLIC [id number] 04:46:00* Test Item Value Reference Range Interpretation [...] CA) 8.7 mg/dL 8.5-10.1 N BASIC METABOLIC [id number] 04:40:00* Test Item Value Reference Range Interpretation [...] CALCIUM (test code = CA) mg/dL 8.5-10.1 [id number] 20:51:00* Test Item Value Reference Range Interpretation Comments GLUBED (test code = GLUBED) 167 mg/dL 74-106 H Performed by certified flexboard operator at [facility] BASIC METABOLIC [id number] 20:07:00* Test Item Value Reference Range Interpretation [...] = CA) 8.9 mg/dL 8.5-10.1 N URINALYSIS [id number] 18:32:00* Test Item Value Reference Range Interpretation [...] NONE A Urine Source? Clean CatchBASIC METABOLIC [id number] 16:07:00* Test Item Value Reference Range Interpretation [...] CA) 9.2 mg/dL 8.5-10.1 N CBC W/O [id number] 15:53:00* Test Item Value Reference Range Interpretation [...] MPV) 9.3 fL 6.7-11.0 N BASIC METABOLIC [id number] 15:18:00* Test Item Value Reference Range Interpretation [...] CA) 9.5 mg/dL 8.5-10.1 N HEPATIC FUNCTION [id number] 15:18:00* Test Item Value Reference Range Interpretation [...] reference range due to change in reagent. [id number] 15:18:00* Test Item Value Reference Range Interpretation Comments LIPASE (test code = LIP) 222 U/L 73.0-393.0 N [id number] 15:18:00* Test Item Value Reference Range Interpretation Comments TROPONIN-I (test code = TROPI) <0.015 ng/mL 0-0.045 N BASIC METABOLIC [id number] 15:11:00* Test Item Value Reference Range Interpretation [...] code = CA) mg/dL 8.5-10.1 HEPATIC FUNCTION [id number] 15:11:00* Test Item Value Reference Range Interpretation [...] TOTAL (test code = ALKP) IUnit/L 45-117 [id number] 15:11:00* Test Item Value Reference Range Interpretation Comments LIPASE (test code = LIP) U/L 73.0-393.0 [id number] 15:11:00* Test Item Value Reference Range Interpretation Comments TROPONIN-I (test code = TROPI) ng/mL 0-0.045 URINALYSIS [id number] 15:09:00* Test Item Value Reference Range Interpretation [...] #/LPF FEW Urine Source? Clean CatchCBC W/O [id number] 15:06:00* Test Item Value Reference Range Interpretation [...] code = MPV) 8.9 fL 6.7-11.0 N [id number] 16:41:00* Test Item Value Reference Range Interpretation Comments GLUBED (test code = GLUBED) 154 mg/dL 74-106 H [facility] certified flexboard operator [facility]~ [id number] 11:34:00* Test Item Value Reference Range Interpretation Comments GLUBED (test code = GLUBED) 162 mg/dL 74-106 H Performed by certified flexboard operator [facility] COMPREHENSIVE METABOLIC [id number] 10:38:00* Test Item Value Reference Range Interpretation [...] due to change in reagent. COMPREHENSIVE METABOLIC [id number] 10:18:00* Test Item Value Reference Range Interpretation [...] code = ALKP) IUnit/L 45-117 CBC W/AUTO [id number] 09:58:00* Test Item Value Reference Range Interpretation [...] DIFF REQUIRED (test code = MDIFF) NO [id number] 09:05:00* Test Item Value Reference Range Interpretation Comments GLUBED (test code = GLUBED) 125 mg/dL 74-106 H Per[facility] by certified flexboard operator [facility]~ [id number] 20:55:00* Test Item Value Reference Range Interpretation Comments GLUBED (test code = GLUBED) 165 mg/dL 74-106 H Performed by certified flexboard operator at [facility]2019-12-02 16:33:00* Test Item Value Reference Range Interpretation Comments GLUBED (test code = GLUBED) 135 mg/dL 74-106 H Performed by certified flexboard operator at [facility]2019-12-02 12:25:00* Test Item Value Reference Range Interpretation Comments GLUBED (test code = GLUBED) 180 mg/dL 74-106 H Performed by certified flexboard operator at [facility]2019-12-02 08:17:00* Test Item Value Reference Range Interpretation Comments GLUBED (test code = GLUBED) 111 mg/dL 74-106 H Performed by certified flexboard operator at [facility]2019-12-01 20:48:00* Test Item Value Reference Range Interpretation Comments GLUBED (test code = GLUBED) 146 mg/dL 74-106 H Performed by certified flexboard operator at [facility]2019-12-01 16:39:00* Test Item Value Reference Range Interpretation Comments GLUBED (test code = GLUBED) 114 mg/dL 74-106 H Performed by certified flexboard operator at [facility]2019-12-01 13:51:00* Test Item Value Reference Range Interpretation Comments GLUBED (test code = GLUBED) 137 mg/dL 74-106 H Performed by certified flexboard operator at [facility]2019-12-01 08:14:00* Test Item Value Reference Range Interpretation Comments GLUBED (test code = GLUBED) 122 mg/dL 74-106 H Performed by certified flexboard operator at [facility] [id number] 20:30:00* Test Item Value Reference Range Interpretation Comments GLUBED (test code = GLUBED) 133 mg/dL 74-106 H Performed by certified flexboard operator at [facility] [id number] 16:08:00* Test Item Value Reference Range Interpretation Comments GLUBED (test code = GLUBED) 165 mg/dL 74-106 H Performed by certified flexboard operator at [facility] [id number] 11:51:00* Test Item Value Reference Range Interpretation Comments GLUBED (test code = GLUBED) 185 mg/dL 74-106 H Performed by certified flexboard operator at [facility] [id number] 08:04:00* Test Item Value Reference Range Interpretation Comments GLUBED (test code = GLUBED) 149 mg/dL 74-106 H Performed by certified flexboard operator at [facility] INFECTION CONTROL [id number] 23:06:00* Test Item Value Reference Range Interpretation Comments HEPATITIS C RNA BY PCR (QUAL) (test code = HCVRNAPCR) Negative Negative Negative: HCV RNA Not DetectedPerformed At: [facility] [address] [id number] Sanjai MD Ph:[phone] AG HEPAT B SURF (test code = HBSAG) Nonreactive Index Nonreactive HEPATITIS B CORE ANTIBODY,TOT (test code = HBCAB) Negative Nega tive Performed At: [facility] [address] [id number] Kyle L MD Ph:[phone] AB HEPATITIS C (test code = HCVAB) 0.2 0.0-0.9 INFCE Result Units: s/co ratio Negative: < 0.8 Indeterminate: 0.8 - 0.9 Positive: > 0.9 The CDC recommends that a positive HCV antibody result be followed up with a HCV Nucleic Acid Amplification test (188266). HIV 1 2 COMBO AG/AB SCREEN (test code = [id number]) AB/AG NO N REACTIVE NONREACTIVE NONREACTIVE HIV P24 ANTI GEN NONREACTIVE NONREACTIVE HIV 1&2 ANTIBODY NONREACTIVE THE HIV-1 P24 TEST HELPS DISTINGUISH ACUTE HIV-1INFECTIONFROM ESTABLISHED HIV-1 INFECTION WHEN THE SPECIMEN ISPOSITIVE FOR HIV-1 P24 ANTIGEN. HIV-1 P24 ANTIGEN IS HIGHEST IN THE FIRST FEW WEEKS AFTERINFECTION [id number] 20:14:00* Test Item Value Reference Range Interpretation Comments GLUBED (test code = GLUBED) 235 mg/dL 74-106 H Performed by certified flexboard operator at [facility] [id number] 16:16:00* Test Item Value Reference Range Interpretation Comments GLUBED (test code = GLUBED) 215 mg/dL 74-106 H Performed by certified flexboard operator at [facility] [id number] 12:36:00* Test Item Value Reference Range Interpretation Comments GLUBED (test code = GLUBED) 193 mg/dL 74-106 H Performed by certified flexboard operator at [facility] [id number] 08:22:00* Test Item Value Reference Range Interpretation Comments GLUBED (test code = GLUBED) 143 mg/dL 74-106 H Performed by certified flexboard operator at [facility] [id number] 19:45:00* Test Item Value Reference Range Interpretation Comments GLUBED (test code = GLUBED) 158 mg/dL 74-106 H Performed by certified flexboard operator at [facility] [id number] 16:48:00* Test Item Value Reference Range Interpretation Comments GLUBED (test code = GLUBED) 140 mg/dL 74-106 H Performed by certified flexboard operator [facility]~ [id number] 11:58:00* Test Item Value Reference Range Interpretation Comments GLUBED (test code = GLUBED) 176 mg/dL 74-106 H Performed by certified flexboard operator [facility]~ [id number] 11:13:00* Test Item Value Reference Range Interpretation Comments GLUBED (test code = GLUBED) 151 mg/dL 74-106 H Performed by certified flexboard operator [facility]~ COMPREHENSIVE METABOLIC [id number] 09:47:00* Test Item Value Reference Range Interpretation [...] due to change in reagent. COMPREHENSIVE METABOLIC [id number] 09:40:00* Test Item Value Reference Range Interpretation [...] code = ALKP) IUnit/L 45-117 CBC W/AUTO [id number] 09:32:00* Test Item Value Reference Range Interpretation [...] DIFF REQUIRED (test code = MDIFF) NO [id number] 03:48:00* Test Item Value Reference Range Interpretation Comments GLUBED (test code = GLUBED) 151 mg/dL 74-106 H Performed by certified flexboard operator at [facility] [id number] 20:40:00* Test Item Value Reference Range Interpretation Comments GLUBED (test code = GLUBED) 264 mg/dL 74-106 H Performed by certified flexboard operator at [facility] [id number] 17:42:00* Test Item Value Reference Range Interpretation Comments GLUBED (test code = GLUBED) 148 mg/dL 74-106 H Performed by certified flexboard operator at [facility] [id number] 11:40:00* Test Item Value Reference Range Interpretation Comments GLUBED (test code = GLUBED) 211 mg/dL 74-106 H Performed by certified flexboard operator at [facility] [id number] 08:03:00* Test Item Value Reference Range Interpretation Comments GLUBED (test code = GLUBED) 106 mg/dL 74-106 N Performed by certified flexboard operator at [facility] [id number] 20:14:00* Test Item Value Reference Range Interpretation Comments GLUBED (test code = GLUBED) 102 mg/dL 74-106 N Performed by certified flexboard operator at [facility] [id number] 17:12:00* Test Item Value Reference Range Interpretation Comments GLUBED (test code = GLUBED) 141 mg/dL 74-106 H Performed by certified flexboard operator at [facility] EXTREMITY,[id number] 15:31:00 RUN DATE: 03/18/19 [facility] Lab PAGE 1 RUN TIME: 153 Specimen Inqui ry RUN USER: INTERFACE PATIENT: XOCHILT EPSTEIN ACCT #: [id number] [facility] U #: [id number] AGE/SX: 78/M ROOM: [facility] RE03/03/19REG DR: Nikki Rascon MD : 40 BED: A DIS: STATUS: ADM IN TLOC: SPEC #: [id number] RECD: 03/12/19 STATUS: MARLO SHETTY #: [id number] BERNARD: 03/12/19- SUBM DR: Carrie Sparrow MD ENTERED: 03/12/19 SP TYPE: EXT. AMPU OTHR DR: Jagjit Tejada John D DO Moinuddeen, Khaja MD Shebib, Zaher MDORDERED: SVETLANA COPIES TO: Carrie Sparrow MD [address] [place] [address] Jagjit Quintero [address] [place], [place] [id number] Faustino Ramirez DO [address] [place] [address] Fito Urena MD [address], [place] [id number] Reg Luke MD [address] [place] [address] PROCEDURES: SVETLANA (03/18/19-143) TISSUES: LEG, NOS - RIGHT BELOW KNEE CLINICAL HISTORY COLLE CTION DATE: 03/12/19 [place] RIGHT FOOT CONTINUED ON NEXT PAGE RUN DATE: 03/18/19 [facility] Lab PAGE 2 RUN TIME: 1531 Specimen Inquiry RUN USER: INTERFACE SPEC #: [id number] PATIENT: XOCHILT EPSTEIN #[id number] (Continued)------- ----- FINAL DIAGNOSIS Right lower extremity, below knee amputation: SKIN WITH EPITHELIAL HYPERPLASIA, HYPERKERATOSIS, ULCERATION AND GANGRENOUS NECROSIS EXTENDING INTO SUBCUTANEOUS TISSUE ATHEROMATOUS PLAQ UE FORMATION, MEDIAL CALCIFICATION AND SUBTOTAL OCCLUSION OF PROXIMAL VESSELS NEGATIVE FOR MALIGNANCY RRB/sm A 03843, 81711 MACROSCOPIC The specimen is received in a red bag labeled with the patie nt's name and identified as "right below knee". The specimen consists of a ri ght lower extremity amputated below the knee. It [...] lateral ankle measuring 1.3 cm. An additional sma ller black gangrenous appearing ulceration measuring 0.7 cm is present at the top of the second toe. Section Code: 1A- samples of necrotic tissue fro m the fifth toe and lateral aspect of the foot, 1B- samples of necrotic tissue from the heel and 1C and 1D- samples of proximal blood vessels for decalcific ation. GROSS PERFORMED AT [facility] [address] [place] [address] (P) MICROSCOPIC All of the stains, including any controls performed, stain appropriately. MICROSCOPIC PERFORMED AT [facility] [address] [place] [address] (P) CONTINUED ON NEXT PAGE -RUN DATE: 03/18/19 [place] - Lab PAGE 3 RUN TIME: 1531 Specimen Inquiry RUN USER: INTERFACE SPEC #: [id number] PATIENT: LUCIANXOCHILT #[id number] (Continued) PERFORMING SITE Diagno sis performed at: [facility] [address] [place] [address] Signed SIGNATURE ON FILE Doroteo Sparks MD 03/18/19 1531 END OF REPORT [id number] 11:54:00* Test Item Value Reference Range Interpretation Comments GLUBED (test code = GLUBED) 226 mg/dL 74-106 H Performed by certified flexboard operator [facility]~ [id number] 08:42:00* Test Item Value Reference Range Interpretation Comments GLUBED (test code = GLUBED) 138 mg/dL 74-106 H Performed by certified flexboard operator [facility]~ INFECTION CONTROL [id number] 06:09:00* Test Item Value Reference Range Interpretation [...] with a HCV Nucleic Acid Amplification test (703615). HIV 1 2 COMBO AG/AB SCREEN (test code = [id number]) AB/AG NO N REACTIVE NONREACTIVE NONREACTIVE HIV P24 ANTI GEN NONREACTIVE NONREACTIVE HIV 1&2 ANTIBODY NONREACTIVE THE HIV-1 P24 TEST HELPS DISTINGUISH ACUTE HIV-1INFECTIONFROM ESTABLISHED HIV-1 INFECTION WHEN THE SPECIMEN ISPOSITIVE FOR HIV-1 P24 ANTIGEN. HIV-1 P24 ANTIGEN IS HIGHEST IN THE FIRST FEW WEEKS AFTERINFECTION INFECTION CONTROL [id number] 06:09:00* Test Item Value Reference Range Interpretation Comments HEPATITIS C RNA BY PCR (QUAL) (test code = HCVRNAPCR) Notdetected AG HEPAT B SURF (test code = HBSAG) Nonreactive Index Nonreactive HEPATITIS B CORE ANTIBODY,TOT (test code = HBCAB) Negative Nega tive Performed At: [facility] [id number] [place], [place] [id number] Pascual Savage MD Ph:[phone] AB HEPATITIS C (test code = HCVAB) 0.2 0.0-0.9 INFCE Result Units: s/co ratio Negative: < 0.8 Indeterminate: 0.8 - 0.9 Positive: > 0.9 The CDC recommends that a positive HCV antibody result be followed up with a HCV Nucleic Acid Amplification test (133379). HIV 1 2 COMBO AG/AB SCREEN (test code = [id number]) AB/AG NO N REACTIVE NONREACTIVE NONREACTIVE HIV P24 ANTI GEN NONREACTIVE NONREACTIVE HIV 1&2 ANTIBODY NONREACTIVE THE HIV-1 P24 TEST HELPS DISTINGUISH ACUTE HIV-1INFECTIONFROM ESTABLISHED HIV-1 INFECTION WHEN THE SPECIMEN ISPOSITIVE FOR HIV-1 P24 ANTIGEN. HIV-1 P24 ANTIGEN IS HIGHEST IN THE FIRST FEW WEEKS AFTERINFECTION [id number] 21:15:00* Test Item Value Reference Range Interpretation Comments GLUBED (test code = GLUBED) 190 mg/dL 74-106 H Performed by certified flexboard operator at [facility] [id number] 17:08:00* Test Item Value Reference Range Interpretation Comments GLUBED (test code = GLUBED) 168 mg/dL 74-106 H Performed by certified flexboard operator at [facility] [id number] 15:50:00* Test Item Value Reference Range Interpretation Comments GLUBED (test code = GLUBED) 159 mg/dL 74-106 H Performed by certified flexboard operator at [facility] [id number] 08:08:00* Test Item Value Reference Range Interpretation Comments GLUBED (test code = GLUBED) 157 mg/dL 74-106 H Performed by certified flexboard operator at [facility] [id number] 05:47:00* Test Item Value Reference Range Interpretation Comments GLUBED (test code = GLUBED) 161 mg/dL 74-106 H Performed by certified flexboard operator at [facility] CBC W/AUTO [id number] 02:51:00* Test Item Value Reference Range Interpretation [...] DIFF REQUIRED (test code = MDIFF) NO [id number] 20:47:00* Test Item Value Reference Range Interpretation Comments GLUBED (test code = GLUBED) 164 mg/dL 74-106 H Performed by certified flexboard operator at [facility] [id number] 15:18:00* Test Item Value Reference Range Interpretation Comments GLUBED (test code = GLUBED) 210 mg/dL 74-106 H Performed by certified flexboard operator at [facility] INFECTION CONTROL [id number] 15:11:00* Test Item Value Reference Range Interpretation Comments HEPATITIS C RNA BY PCR (QUAL) (test code = HCVRNAPCR) Notdetected AG HEPAT B SURF (test code = HBSAG) Nonreactive Index Nonreactive HEPATITIS B CORE ANTIBODY,TOT (test code = HBCAB) NEGA TIVE AB HEPATITIS C (test code = HCVAB) NEGATIVE HIV 1 2 COMBO AG/AB SCREEN (test code = [id number]) AB/AG NO N REACTIVE NONREACTIVE NONREACTIVE HIV P24 ANTI GEN NONREACTIVE NONREACTIVE HIV 1&2 ANTIBODY NONREACTIVE THE HIV-1 P24 TEST HELPS DISTINGUISH ACUTE HIV-1INFECTIONFROM ESTABLISHED HIV-1 INFECTION WHEN THE SPECIMEN ISPOSITIVE FOR HIV-1 P24 ANTIGEN. HIV-1 P24 ANTIGEN IS HIGHEST IN THE FIRST FEW WEEKS AFTERINFECTION HIV 1 2 COMBO AG/AB [id number] 15:02:00* Test Item Value Reference Range Interpretation Comments HIV 1 2 COMBO AG/AB SCREEN (test code = [id number]) TEST NOT PERFORMED NONREACTIVE NONREACTIVE HIV P24 ANTI GEN NONREACTIVE NONREACTIVE HIV 1&2 ANTIBODY NONREACTIVE THE HIV-1 P24 TEST HELPS DISTINGUISH ACUTE HIV-1INFECTIONFROM ESTABLISHED HIV-1 INFECTION WHEN THE SPECIMEN ISPOSITIVE FOR HIV-1 P24 ANTIGEN. HIV-1 P24 ANTIGEN IS HIGHEST IN THE FIRST FEW WEEKS AFTERINFECTION Previously reported result: AB/AG NON REACTIVE Edited by: MARTINE on 03/16/19:55185105/16/18 1502: HIV 1&2 AG/AB previously reported as: AB/AG NON REACTIVE NONREACTIVE HIV P24 ANTIGEN NONREACTIVE NONREACTIVE HIV 1&2 ANTIBODY NONREACTIVE THE H IV-1 P24 TEST HELPS DISTINGUISH ACUTE HIV-1INFECTION FROM ESTABLISHED HIV-1 INFECTION WHEN THE SPECIMEN IS POSITIVE FOR HIV-1 P24 ANTIGEN. HIV-1 P24 ANTIGEN IS HIGHEST IN THE FIRST FEW WEEKS AFTER INFECTION INFECTION CONTROL [id number] 13:59:00* Test Item Value Reference Range Interpretation Comments HEPATITIS C RNA BY PCR (QUAL) (test code = HCVRNAPCR) Notdetected AG HEPAT B SURF (test code = HBSAG) Nonreactive Index Nonreactive HEPATITIS B CORE ANTIBODY,TOT (test code = HBCAB) NEGA TIVE AB HEPATITIS C (test code = HCVAB) NEGATIVE HIV 1 2 COMBO AG/AB SCREEN (test code = [id number]) NO NREACTIVE HIV 1 2 COMBO AG/AB [id number] 13:04:00* Test Item Value Reference Range Interpretation Comments HIV 1 2 COMBO AG/AB SCREEN (test code = [id number]) AB/AG NO N REACTIVE NONREACTIVE NONREACTIVE HIV P24 ANTI GEN NONREACTIVE NONREACTIVE HIV 1&2 ANTIBODY NONREACTIVE THE HIV-1 P24 TEST HELPS DISTINGUISH ACUTE HIV-1INFECTIONFROM ESTABLISHED HIV-1 INFECTION WHEN THE SPECIMEN ISPOSITIVE FOR HIV-1 P24 ANTIGEN. HIV-1 P24 ANTIGEN IS HIGHEST IN THE FIRST FEW WEEKS AFTERINFECTION BASIC METABOLIC [id number] 08:22:00* Test Item Value Reference Range Interpretation [...] code = CA) 8.7 mg/dL 8.5-10.1 N [id number] 08:17:00* Test Item Value Reference Range Interpretation Comments GLUBED (test code = GLUBED) 158 mg/dL 74-106 H Performed by certified flexboard operator at [facility] BASIC METABOLIC [id number] 08:16:00* Test Item Value Reference Range Interpretation [...] CA) 8.7 mg/dL 8.5-10.1 N CBC W/AUTO [id number] 07:36:00* Test Item Value Reference Range Interpretation [...] code = NRBC#) 0.00 K/mm3 0.0-0.1 N V.LAB.[facility] IMPERIAL POINT 03/16/19 [id number] 21:35:00* Test Item Value Reference Range Interpretation Comments GLUBED (test code = GLUBED) 133 mg/dL 74-106 H Performed by certified flexboard operator at [facility] [id number] 20:35:00* Test Item Value Reference Range Interpretation Comments GLUBED (test code = GLUBED) 163 mg/dL 74-106 H Performed by certified flexboard operator at [facility] [id number] 15:53:00* Test Item Value Reference Range Interpretation Comments GLUBED (test code = GLUBED) 209 mg/dL 74-106 H Performed by certified flexboard operator at [facility] [id number] 08:18:00* Test Item Value Reference Range Interpretation Comments GLUBED (test code = GLUBED) 157 mg/dL 74-106 H Performed by certified flexboard operator at [facility] BASIC METABOLIC [id number] 03:11:00* Test Item Value Reference Range Interpretation [...] CA) 8.4 mg/dL 8.5-10.1 L CBC W/AUTO [id number] 02:52:00* Test Item Value Reference Range Interpretation [...] DIFF REQUIRED (test code = MDIFF) NO [id number] 20:59:00* Test Item Value Reference Range Interpretation Comments GLUBED (test code = GLUBED) 189 mg/dL 74-106 H Performed by certified flexboard operator at [facility] [id number] 17:16:00* Test Item Value Reference Range Interpretation Comments GLUBED (test code = GLUBED) 168 mg/dL 74-106 H Performed by certified flexboard operator at [facility] [id number] 12:32:00* Test Item Value Reference Range Interpretation Comments GLUBED (test code = GLUBED) 191 mg/dL 74-106 H Performed by certified flexboard operator at [facility] BASIC METABOLIC [id number] 10:59:00* Test Item Value Reference Range Interpretation [...] CA) 8.8 mg/dL 8.5-10.1 N BASIC METABOLIC [id number] 10:53:00* Test Item Value Reference Range Interpretation [...] CA) 8.8 mg/dL 8.5-10.1 N BASIC METABOLIC [id number] 10:52:00* Test Item Value Reference Range Interpretation [...] code = CA) mg/dL 8.5-10.1 CBC W/AUTO [id number] 10:17:00* Test Item Value Reference Range Interpretation [...] code = NRBC#) 0.00 K/mm3 0.0-0.1 N [id number] 07:55:00* Test Item Value Reference Range Interpretation Comments GLUBED (test code = GLUBED) 118 mg/dL 74-106 H Performed by certified flexboard operator at [facility] [id number] 21:12:00* Test Item Value Reference Range Interpretation Comments GLUBED (test code = GLUBED) 211 mg/dL 74-106 H Performed by certified flexboard operator at [facility] [id number] 16:35:00* Test Item Value Reference Range Interpretation Comments GLUBED (test code = GLUBED) 132 mg/dL 74-106 H Performed by certified flexboard operator at [facility] [id number] 11:36:00* Test Item Value Reference Range Interpretation Comments GLUBED (test code = GLUBED) 169 mg/dL 74-106 H Performed by certified flexboard operator at [facility] [id number] 08:38:00* Test Item Value Reference Range Interpretation Comments GLUBED (test code = GLUBED) 83 mg/dL 74-106 N Performed by certified flexboard operator at [facility] CBC W/MANUAL [id number] 07:21:00* Test Item Value Reference Range Interpretation [...] IMMAT) 0 % 0-0 N BASIC METABOLIC [id number] 04:08:00* Test Item Value Reference Range Interpretation [...] CA) 8.7 mg/dL 8.5-10.1 N BASIC METABOLIC [id number] 04:00:00* Test Item Value Reference Range Interpretation [...] code = CA) mg/dL 8.5-10.1 CBC W/MANUAL [id number] 03:50:00* Test Item Value Reference Range Interpretation [...] PLTEST) PLATELET MORPHOLOGY (test code = PLTMORPH) [id number] 19:48:00* Test Item Value Reference Range Interpretation Comments GLUBED (test code = GLUBED) 117 mg/dL 74-106 H Performed by certified flexboard operator at [facility] [id number] 16:34:00* Test Item Value Reference Range Interpretation Comments GLUBED (test code = GLUBED) 136 mg/dL 74-106 H Performed by certified flexboard operator at [facility] [id number] 14:32:00* Test Item Value Reference Range Interpretation Comments GLUBED (test code = GLUBED) 133 mg/dL 74-106 H Performed by certified flexboard operator at [facility] BASIC METABOLIC [id number] 13:05:00* Test Item Value Reference Range Interpretation [...] code = CA) 8.7 mg/dL 8.5-10.1 N [id number] 07:54:00* Test Item Value Reference Range Interpretation Comments GLUBED (test code = GLUBED) 108 mg/dL 74-106 H Performed by certified flexboard operator at [facility] [id number] 06:33:00* Test Item Value Reference Range Interpretation Comments GLUBED (test code = GLUBED) 107 mg/dL 74-106 H Performed by certified flexboard operator at [facility] CBC W/AUTO [id number] 02:55:00* Test Item Value Reference Range Interpretation [...] = MDIFF) NO, ONLY SCAN NEEDED DIFFERENTIAL [id number] 02:55:00* Test Item Value Reference Range Interpretation Comments STAIN ACCEPTABILITY (test code = STN ACCEPTABLE) STAIN ACCEPTABLE PLATELET ESTIMATE (test code = PLTEST) ADEQUATE PLATELET MORPHOLOGY (test code = PLTMORPH) NORMAL BASIC METABOLIC [id number] 02:09:00* Test Item Value Reference Range Interpretation [...] CA) 8.4 mg/dL 8.5-10.1 L CBC W/AUTO [id number] 01:48:00* Test Item Value Reference Range Interpretation [...] = MDIFF) NO, ONLY SCAN NEEDED DIFFERENTIAL [id number] 01:48:00* Test Item Value Reference Range Interpretation Comments STAIN ACCEPTABILITY (test code = STN ACCEPTABLE) CABOT RINGS (test code = CAB) MORPHOLOGY COMMENT (test code = MOC) PLATELET ESTIMATE (test code = PLTEST) PLATELET MORPHOLOGY (test code = PLTMORPH) CBC W/AUTO [id number] 01:48:00* Test Item Value Reference Range Interpretation [...] = MDIFF) NO, ONLY SCAN NEEDED DIFFERENTIAL [id number] 01:48:00* Test Item Value Reference Range Interpretation Comments STAIN ACCEPTABILITY (test code = STN ACCEPTABLE) CABOT RINGS (test code = CAB) MORPHOLOGY COMMENT (test code = MOC) PLATELET ESTIMATE (test code = PLTEST) PLATELET MORPHOLOGY (test code = PLTMORPH) CBC W/AUTO [id number] 01:48:00* Test Item Value Reference Range Interpretation [...] = MDIFF) NO, ONLY SCAN NEEDED DIFFERENTIAL [id number] 01:48:00* Test Item Value Reference Range Interpretation Comments STAIN ACCEPTABILITY (test code = STN ACCEPTABLE) MORPHOLOGY COMMENT (test code = MOC) PLATELET ESTIMATE (test code = PLTEST) PLATELET MORPHOLOGY (test code = PLTMORPH) CBC W/AUTO [id number] 01:47:00* Test Item Value Reference Range Interpretation [...] = MDIFF) NO, ONLY SCAN NEEDED DIFFERENTIAL [id number] 01:47:00* Test Item Value Reference Range Interpretation Comments STAIN ACCEPTABILITY (test code = STN ACCEPTABLE) CABOT RINGS (test code = CAB) MORPHOLOGY COMMENT (test code = MOC) PLATELET ESTIMATE (test code = PLTEST) PLATELET MORPHOLOGY (test code = PLTMORPH) [id number] 20:40:00* Test Item Value Reference Range Interpretation Comments GLUBED (test code = GLUBED) 188 mg/dL 74-106 H Performed by certified flexboard operator at [facility] [id number] 19:01:00* Test Item Value Reference Range Interpretation Comments GLUBED (test code = GLUBED) 144 mg/dL 74-106 H Performed by certified flexboard operator at [facility] [id number] 12:12:00* Test Item Value Reference Range Interpretation Comments GLUBED (test code = GLUBED) 186 mg/dL 74-106 H Performed by certified flexboard operator at [facility] [id number] 09:35:00* Test Item Value Reference Range Interpretation Comments GLUBED (test code = GLUBED) 115 mg/dL 74-106 H Performed by certified flexboard operator at [facility] BASIC METABOLIC [id number] 02:43:00* Test Item Value Reference Range Interpretation [...] CA) 8.1 mg/dL 8.5-10.1 L BASIC METABOLIC [id number] 02:35:00* Test Item Value Reference Range Interpretation [...] code = CA) mg/dL 8.5-10.1 CBC W/AUTO [id number] 02:27:00* Test Item Value Reference Range Interpretation [...] DIFF REQUIRED (test code = MDIFF) NO [id number] 21:30:00* Test Item Value Reference Range Interpretation Comments GLUBED (test code = GLUBED) 164 mg/dL 74-106 H Performed by certified flexboard operator at [facility] [id number] 20:51:00* Test Item Value Reference Range Interpretation Comments GLUBED (test code = GLUBED) 207 mg/dL 74-106 H Performed by certified flexboard operator at [facility] [id number] 15:01:00* Test Item Value Reference Range Interpretation Comments GLUBED (test code = GLUBED) 127 mg/dL 74-106 H Performed by certified flexboard operator at [facility] [id number] 08:28:00* Test Item Value Reference Range Interpretation Comments GLUBED (test code = GLUBED) 100 mg/dL 74-106 N Performed by certified flexboard operator at [facility] [id number] 05:32:00* Test Item Value Reference Range Interpretation Comments GLUBED (test code = GLUBED) 137 mg/dL 74-106 H Performed by certified flexboard operator at [facility] CBC W/AUTO [id number] 02:41:00* Test Item Value Reference Range Interpretation [...] = MDIFF) NO, ONLY SCAN NEEDED DIFFERENTIAL [id number] 02:41:00* Test Item Value Reference Range Interpretation Comments STAIN ACCEPTABILITY (test code = STN ACCEPTABLE) STAIN ACCEPTABLE POIKILOCYTOSIS (test code = POIK) 1+ CRENATED CELLS (test code = CREN) 1+ PLATELET ESTIMATE (test code = PLTEST) ADEQUATE PLATELET MORPHOLOGY (test code = PLTMORPH) NORMAL BASIC METABOLIC [id number] 02:19:00* Test Item Value Reference Range Interpretation [...] CA) 8.2 mg/dL 8.5-10.1 L CBC W/AUTO [id number] 02:12:00* Test Item Value Reference Range Interpretation [...] = MDIFF) NO, ONLY SCAN NEEDED DIFFERENTIAL [id number] 02:12:00* Test Item Value Reference Range Interpretation Comments STAIN ACCEPTABILITY (test code = STN ACCEPTABLE) CABOT RINGS (test code = CAB) MORPHOLOGY COMMENT (test code = MOC) PLATELET ESTIMATE (test code = PLTEST) PLATELET MORPHOLOGY (test code = PLTMORPH) CBC W/AUTO [id number] 02:12:00* Test Item Value Reference Range Interpretation [...] = MDIFF) NO, ONLY SCAN NEEDED DIFFERENTIAL [id number] 02:12:00* Test Item Value Reference Range Interpretation Comments STAIN ACCEPTABILITY (test code = STN ACCEPTABLE) CABOT RINGS (test code = CAB) MORPHOLOGY COMMENT (test code = MOC) PLATELET ESTIMATE (test code = PLTEST) PLATELET MORPHOLOGY (test code = PLTMORPH) CBC W/AUTO [id number] 02:12:00* Test Item Value Reference Range Interpretation [...] = MDIFF) NO, ONLY SCAN NEEDED DIFFERENTIAL [id number] 02:12:00* Test Item Value Reference Range Interpretation Comments STAIN ACCEPTABILITY (test code = STN ACCEPTABLE) MORPHOLOGY COMMENT (test code = MOC) PLATELET ESTIMATE (test code = PLTEST) PLATELET MORPHOLOGY (test code = PLTMORPH) CBC W/AUTO [id number] 02:11:00* Test Item Value Reference Range Interpretation [...] = MDIFF) NO, ONLY SCAN NEEDED DIFFERENTIAL [id number] 02:11:00* Test Item Value Reference Range Interpretation Comments STAIN ACCEPTABILITY (test code = STN ACCEPTABLE) CABOT RINGS (test code = CAB) MORPHOLOGY COMMENT (test code = MOC) PLATELET ESTIMATE (test code = PLTEST) PLATELET MORPHOLOGY (test code = PLTMORPH) BASIC METABOLIC [id number] 02:04:00* Test Item Value Reference Range Interpretation [...] code = CA) 8.2 mg/dL 8.5-10.1 L [id number] 21:56:00* Test Item Value Reference Range Interpretation Comments GLUBED (test code = GLUBED) 274 mg/dL 74-106 H Performed by certified flexboard operator at [facility] - CT ABD PELVIS [id number] 17:18:00 Name: XOCHILT EPSTEIN [facility] : 1940 Age/S: 78 / M [address] [facility] Unit #: [id number] Loc: [place] [address] Phys: Geovanny Griffin Acct: [id number] Dis Date: Status: ADM IN PHONE #: [phone] Exam Date: 03/09/2019 1711 FAX #: [phone] Reason: concern sacral OM EXAMS: CPT CODE: [id number] CT ABD PELVIS W/CONT 18885 REASON FOR EXAM: concern sacral OM EXAM [...] the colon suggestive of constipation/fecal impaction at 1718 Reported and signed by: Earle Alvarado M.D. PAGE 1 Signed Report (CONTINUED) Name: XOCHILT EPSTEIN [facility] : 1940 Age/S: 78 / M [address] [facility] Unit #: [id number] Loc: [place], [place] [address] Phys: Geovanny Griffin Acct: [id number] Dis Date: Status: ADM IN PHONE #: [phone] Exam Date: 03/09/2019 171 FAX #: [phone] Reason: concern sacral OM EXAMS: CPT CODE: [id number] CT ABD PELVIS W/CONT 33014 < Continued> CC: Adelina Moncada MD; Faustino Ramirez; Geovanny Griffin Technologist:Maria Esther Fields RT(R),CT CTDI: DLP: Trnscb Date/Time: 03/09/2019 (171) t.[email or web address].VTL Orig Print D/T: S: 03/09/2019 (1725) PAGE 2 Signed Report [id number] 12:43:00* Test Item Value Reference Range Interpretation Comments GLUBED (test code = GLUBED) 107 mg/dL 74-106 H Performed by certified flexboard operator at [facility] [id number] 10:28:00* Test Item Value Reference Range Interpretation Comments GLUBED (test code = GLUBED) 72 mg/dL 74-106 L Performed by certified flexboard operator at [facility] BASIC METABOLIC [id number] 03:36:00* Test Item Value Reference Range Interpretation [...] CA) 8.4 mg/dL 8.5-10.1 L CBC W/AUTO [id number] 03:23:00* Test Item Value Reference Range Interpretation [...] DIFF REQUIRED (test code = MDIFF) NO [id number] 21:21:00* Test Item Value Reference Range Interpretation Comments GLUBED (test code = GLUBED) 162 mg/dL 74-106 H Performed by certified flexboard operator at [facility] [id number] 16:37:00* Test Item Value Reference Range Interpretation Comments GLUBED (test code = GLUBED) 150 mg/dL 74-106 H Performed by certified flexboard operator at [facility] [id number] 11:56:00* Test Item Value Reference Range Interpretation Comments GLUBED (test code = GLUBED) 181 mg/dL 74-106 H Performed by certified flexboard operator at [facility] [id number] 08:00:00* Test Item Value Reference Range Interpretation Comments GLUBED (test code = GLUBED) 75 mg/dL 74-106 N Performed by certified flexboard operator at [facility] BASIC METABOLIC [id number] 03:19:00* Test Item Value Reference Range Interpretation [...] CA) 8.5 mg/dL 8.5-10.1 N BASIC METABOLIC [id number] 03:16:00* Test Item Value Reference Range Interpretation [...] code = CA) mg/dL 8.5-10.1 CBC W/AUTO [id number] 02:06:00* Test Item Value Reference Range Interpretation [...] DIFF REQUIRED (test code = MDIFF) NO [id number] 21:28:00* Test Item Value Reference Range Interpretation Comments GLUBED (test code = GLUBED) 119 mg/dL 74-106 H Performed by certified flexboard operator at [facility] [id number] 18:25:00* Test Item Value Reference Range Interpretation Comments GLUBED (test code = GLUBED) 132 mg/dL 74-106 H Performed by certified flexboard operator at [facility] [id number] 18:24:00* Test Item Value Reference Range Interpretation Comments GLUBED (test code = GLUBED) 105 mg/dL 74-106 N Performed by certified flexboard operator at [facility] [id number] 11:58:00* Test Item Value Reference Range Interpretation Comments GLUBED (test code = GLUBED) 84 mg/dL 74-106 N Performed by certified flexboard operator at [facility] [id number] 10:40:00* Test Item Value Reference Range Interpretation Comments GLUBED (test code = GLUBED) 142 mg/dL 74-106 H Performed by certified flexboard operator at [facility] BASIC METABOLIC [id number] 02:40:00* Test Item Value Reference Range Interpretation [...] code = CA) mg/dL 8.5-10.1 BASIC METABOLIC [id number] 02:40:00* Test Item Value Reference Range Interpretation [...] CA) 8.2 mg/dL 8.5-10.1 L CBC W/AUTO [id number] 02:23:00* Test Item Value Reference Range Interpretation [...] DIFF REQUIRED (test code = MDIFF) NO [id number] 21:41:00* Test Item Value Reference Range Interpretation Comments GLUBED (test code = GLUBED) 174 mg/dL 74-106 H Performed by certified flexboard operator at [facility] [id number] 16:48:00* Test Item Value Reference Range Interpretation Comments GLUBED (test code = GLUBED) 184 mg/dL 74-106 H Performed by certified flexboard operator at [facility] [id number] 08:03:00* Test Item Value Reference Range Interpretation Comments GLUBED (test code = GLUBED) 93 mg/dL 74-106 N Performed by certified flexboard operator at [facility] BASIC METABOLIC [id number] 06:51:00* Test Item Value Reference Range Interpretation [...] CA) 8.4 mg/dL 8.5-10.1 L BASIC METABOLIC [id number] 06:46:00* Test Item Value Reference Range Interpretation [...] code = CA) mg/dL 8.5-10.1 CBC W/AUTO [id number] 06:45:00* Test Item Value Reference Range Interpretation [...] code = NRBC#) 0.00 K/mm3 0.0-0.1 N [id number] 05:52:00* Test Item Value Reference Range Interpretation Comments GLUBED (test code = GLUBED) 94 mg/dL 74-106 N Performed by certified flexboard operator at [facility] [id number] 05:52:00* Test Item Value Reference Range Interpretation Comments GLUBED (test code = GLUBED) 69 mg/dL 74-106 L Performed by certified flexboard operator at [facility] [id number] 20:57:00* Test Item Value Reference Range Interpretation Comments GLUBED (test code = GLUBED) 173 mg/dL 74-106 H Performed by certified flexboard operator at [facility] [id number] 13:35:00* Test Item Value Reference Range Interpretation Comments GLUBED (test code = GLUBED) 82 mg/dL 74-106 N Performed by certified flexboard operator at [facility] [id number] 11:55:00* Test Item Value Reference Range Interpretation Comments GLUBED (test code = GLUBED) 95 mg/dL 74-106 N Performed by certified flexboard operator at [facility] COAGULATION TIME [id number] 11:38:00* Test Item Value Reference Range Interpretation Comments COAGULATION TIME ACTIVATED (test code = ACT) 114 seconds 62.8-88.0 H COAGULATION TIME [id number] 10:50:00* Test Item Value Reference Range Interpretation Comments COAGULATION TIME ACTIVATED (test code = ACT) 203 seconds 62.8-88.0 H COAGULATION TIME [id number] 09:45:00* Test Item Value Reference Range Interpretation Comments COAGULATION TIME ACTIVATED (test code = ACT) 200 seconds 62.8-88.0 H BASIC METABOLIC [id number] 06:15:00* Test Item Value Reference Range Interpretation [...] CA) 8.4 mg/dL 8.5-10.1 L BASIC METABOLIC [id number] 05:50:00* Test Item Value Reference Range Interpretation [...] code = CA) mg/dL 8.5-10.1 CBC W/AUTO [id number] 05:42:00* Test Item Value Reference Range Interpretation [...] DIFF REQUIRED (test code = MDIFF) NO [id number] 22:33:00* Test Item Value Reference Range Interpretation Comments GLUBED (test code = GLUBED) 127 mg/dL 74-106 H Performed by certified flexboard operator at [facility] [id number] 20:53:00* Test Item Value Reference Range Interpretation Comments GLUBED (test code = GLUBED) 162 mg/dL 74-106 H Performed by certified flexboard operator at [facility] - CTA ABD AORTA IF LWEX [id number] 19:41:00 Name: XOCHILT EPSTEIN [facility] : 1940 Age/S: 78 / M [address] Unit #: [id number] Loc: [place] [address] Phys: Nida Faust TRAIN ENGINEER Acct: [id number] Dis Date: Status: ADM IN PHONE #: [phone] Exam Date: 03/04/20191709 FAX #: [phone] Reason: PAD EXAMS: CPT CODE: [id number] [place] [address] EXAM: CT angiography of the abdominal aorta, [...] PAGE 1 Signed R eport (CONTINUED) Name: LUCIANXOCHILT [facility] : 1940 Age/S: 78 / M [address] [facility] [id number] Loc: [place] [address] Phys: Nida Faust NP Acct: [id number] Dis Date: Status: ADM IN PHONE #: [phone] Exam Date: 03/04/20191709 FAX #: [phone] Reason: PAD EXAMS: CPT CODE: [id number] [place] [address] <Continued> vessels, which are otherwise patent. 3. [...] stump. 6. Rectosigmoid stool impaction. Location code: [facility] at 1941 Reported and signed by: Guille Liao M.D. CC: Loraine Meehan MD; Faustino Ramirez; Nida Faust NP Technologist:Elissa CONLEY(R); [employer] CTDI: DLP: Trnscb Date/Time: 03/04/2019 (1940) [email or web address] Orig Print D/T: S: 03/04/2019 (1943) PAGE 2 Signed Report [id number] 16:51:00* Test Item Value Reference Range Interpretation Comments GLUBED (test code = GLUBED) 183 mg/dL 74-106 H Performed by certified flexboard operator at [facility] [id number] 12:32:00* Test Item Value Reference Range Interpretation Comments GLUBED (test code = GLUBED) 79 mg/dL 74-106 N Performed by certified flexboard operator at [facility] [id number] 12:12:00* Test Item Value Reference Range Interpretation Comments GLUBED (test code = GLUBED) 60 mg/dL 74-106 L Performed by certified flexboard operator at [facility] CBC W/MANUAL [id number] 09:15:00* Test Item Value Reference Range Interpretation [...] (test code = PLTMORPH) NORMAL BASIC METABOLIC [id number] 08:30:00* Test Item Value Reference Range Interpretation [...] CA) 8.6 mg/dL 8.5-10.1 N BASIC METABOLIC [id number] 08:27:00* Test Item Value Reference Range Interpretation [...] code = CA) mg/dL 8.5-10.1 CBC W/MANUAL [id number] 08:08:00* Test Item Value Reference Range Interpretation [...] MORPHOLOGY (test code = PLTMORPH) CBC W/MANUAL [id number] 08:07:00* Test Item Value Reference Range Interpretation [...] MORPHOLOGY (test code = PLTMORPH) CBC W/MANUAL [id number] 08:07:00* Test Item Value Reference Range Interpretation [...] MORPHOLOGY (test code = PLTMORPH) CBC W/MANUAL [id number] 08:07:00* Test Item Value Reference Range Interpretation [...] MORPHOLOGY (test code = PLTMORPH) CBC W/MANUAL [id number] 08:07:00* Test Item Value Reference Range Interpretation [...] PLTEST) PLATELET MORPHOLOGY (test code = PLTMORPH) [id number] 02:11:00* Test Item Value Reference Range Interpretation Comments TROPONIN-I (test code = TROPI) <0.015 ng/mL 0-0.045 N [id number] 23:02:00* Test Item Value Reference Range Interpretation Comments GLYCOSYLATED HEMOGLOBIN (HA1C) (test code = GLYHGB) 5.9 % HbA1 4. 8-6.0 N ESTIMATED AVERAGE GLUCOSE (test code = EAG) 123 MG/DL URINALYSIS [id number] 18:51:00* Test Item Value Reference Range Interpretation Comments UA COLOR (test code = COLU) Light-Reeves YELLOW UA APPEARANCE (test code = APPU) [...] #/HPF NONE A Urine Source? Clean CatchURINALYSIS [id number] 18:46:00* Test Item Value Reference Range Interpretation Comments UA COLOR (test code = COLU) Light-Reeves YELLOW UA APPEARANCE (test code = APPU) [...] HPF NONE Urine Source? Clean CatchBASIC METABOLIC [id number] 18:33:00* Test Item Value Reference Range Interpretation [...] = CA) 9.2 mg/dL 8.5-10.1 N CPK-MB [id number] 18:33:00* Test Item Value Reference Range Interpretation [...] valid with a normal total CK. PROTHROMBIN [id number] 18:20:00* Test Item Value Reference Range Interpretation [...] (2.5-3.5) IS PATIENT ON ANTICOAGULANTS? NTHROMBOPLASTIN TIME [id number] 18:20:00* Test Item Value Reference Range Interpretation Comments THROMBOPLASTIN TIME PARTIAL (test code = PTT) 33.1 seconds 25.0-36. 5 N IS PATIENT ON ANTICOAGULANTS? NBASIC METABOLIC [id number] 18:20:00* Test Item Value Reference Range Interpretation [...] = CA) 9.2 mg/dL 8.5-10.1 N CPK-MB [id number] 18:20:00* Test Item Value Reference Range Interpretation Comments CREATINE KINASE (CK) (test code = CK) IUnit/L 26-208 CKMB (test code = CKMBT) ng/mL 0-6.0 RELATIVE % INDEX (test code = REL%) % 0.00-2.50 CBC W/O [id number] 18:15:00* Test Item Value Reference Range Interpretation [...] code = MPV) 8.5 fL 6.7-11.0 N [id number] 18:50:00* Test Item Value Reference Range Interpretation Comments GLUBED (test code = GLUBED) 218 mg/dL 74-106 H [facility] flex[facility] [id number] 12:10:00* Test Item Value Reference Range Interpretation Comments GLUBED (test code = GLUBED) 212 mg/dL 74-106 H Performed by certified flexboard operator at [facility] [id number] 08:21:00* Test Item Value Reference Range Interpretation Comments GLUBED (test code = GLUBED) 121 mg/dL 74-106 H Performed by certified flexboard operator at [facility] CBC W/MANUAL [id number] 03:08:00* Test Item Value Reference Range Interpretation [...] IMMAT) 0 % 0-0 N CBC W/MANUAL [id number] 02:39:00* Test Item Value Reference Range Interpretation [...] MORPHOLOGY (test code = PLTMORPH) CBC W/MANUAL [id number] 02:39:00* Test Item Value Reference Range Interpretation [...] MORPHOLOGY (test code = PLTMORPH) CBC W/MANUAL [id number] 02:39:00* Test Item Value Reference Range Interpretation [...] MORPHOLOGY (test code = PLTMORPH) CBC W/MANUAL [id number] 02:39:00* Test Item Value Reference Range Interpretation [...] MORPHOLOGY (test code = PLTMORPH) CBC W/MANUAL [id number] 02:39:00* Test Item Value Reference Range Interpretation [...] PLTEST) PLATELET MORPHOLOGY (test code = PLTMORPH) [id number] 20:20:00* Test Item Value Reference Range Interpretation Comments GLUBED (test code = GLUBED) 229 mg/dL 74-106 H Performed by certified flexboard operator at [facility] [id number] 16:14:00* Test Item Value Reference Range Interpretation Comments GLUBED (test code = GLUBED) 265 mg/dL 74-106 H Performed by certified flexboard operator at [facility] [id number] 11:59:00* Test Item Value Reference Range Interpretation Comments GLUBED (test code = GLUBED) 267 mg/dL 74-106 H Performed by certified flexboard operator at [facility] [id number] 08:56:00* Test Item Value Reference Range Interpretation Comments GLUBED (test code = GLUBED) 163 mg/dL 74-106 H Per[facility] certified flexboard operator [facility] CBC W/MANUAL [id number] 04:18:00* Test Item Value Reference Range Interpretation [...] IMMAT) 0 % 0-0 N COMPREHENSIVE METABOLIC [id number] 03:24:00* Test Item Value Reference Range Interpretation [...] due to change in reagent. COMPREHENSIVE METABOLIC [id number] 03:17:00* Test Item Value Reference Range Interpretation [...] code = ALKP) IUnit/L 45-117 CBC W/MANUAL [id number] 02:53:00* Test Item Value Reference Range Interpretation [...] MORPHOLOGY (test code = PLTMORPH) CBC W/MANUAL [id number] 02:53:00* Test Item Value Reference Range Interpretation [...] MORPHOLOGY (test code = PLTMORPH) CBC W/MANUAL [id number] 02:53:00* Test Item Value Reference Range Interpretation [...] MORPHOLOGY (test code = PLTMORPH) CBC W/MANUAL [id number] 02:52:00* Test Item Value Reference Range Interpretation [...] MORPHOLOGY (test code = PLTMORPH) CBC W/MANUAL [id number] 02:52:00* Test Item Value Reference Range Interpretation [...] PLTEST) PLATELET MORPHOLOGY (test code = PLTMORPH) [id number] 19:49:00* Test Item Value Reference Range Interpretation Comments GLUBED (test code = GLUBED) 249 mg/dL 74-106 H Performed by certified flexboard operator at [facility] [id number] 18:55:00* Test Item Value Reference Range Interpretation Comments GLUBED (test code = GLUBED) 295 mg/dL 74-106 H Per[facility] certified flexboard operator [facility] [id number] 12:08:00* Test Item Value Reference Range Interpretation Comments GLUBED (test code = GLUBED) 235 mg/dL 74-106 H Per[facility] certified flexboard operator [facility] [id number] 08:13:00* Test Item Value Reference Range Interpretation Comments GLUBED (test code = GLUBED) 120 mg/dL 74-106 H Performed [facility] certified flexboard operator [facility] [id number] 20:25:00* Test Item Value Reference Range Interpretation Comments GLUBED (test code = GLUBED) 221 mg/dL 74-106 H Per[facility] certified flexboard operator [facility] [id number] 14:25:00* Test Item Value Reference Range Interpretation Comments GLUBED (test code = GLUBED) 214 mg/dL 74-106 H Performed [facility] certified flexboard operator [facility] [id number] 14:25:00* Test Item Value Reference Range Interpretation Comments GLUBED (test code = GLUBED) 86 mg/dL 74-106 N Per[facility] certified flexboard operator [facility] CBC W/MANUAL [id number] 06:10:00* Test Item Value Reference Range Interpretation [...] IMMAT) 0 % 0-0 N BASIC METABOLIC [id number] 05:33:00* Test Item Value Reference Range Interpretation [...] CA) 8.3 mg/dL 8.5-10.1 L BASIC METABOLIC [id number] 05:28:00* Test Item Value Reference Range Interpretation [...] code = CA) mg/dL 8.5-10.1 CBC W/MANUAL [id number] 05:28:00* Test Item Value Reference Range Interpretation [...] MORPHOLOGY (test code = PLTMORPH) CBC W/MANUAL [id number] 05:17:00* Test Item Value Reference Range Interpretation [...] MORPHOLOGY (test code = PLTMORPH) CBC W/MANUAL [id number] 05:17:00* Test Item Value Reference Range Interpretation [...] MORPHOLOGY (test code = PLTMORPH) CBC W/MANUAL [id number] 05:16:00* Test Item Value Reference Range Interpretation [...] MORPHOLOGY (test code = PLTMORPH) CBC W/MANUAL [id number] 05:16:00* Test Item Value Reference Range Interpretation [...] PLTEST) PLATELET MORPHOLOGY (test code = PLTMORPH) [id number] 20:44:00* Test Item Value Reference Range Interpretation Comments GLUBED (test code = GLUBED) 156 mg/dL 74-106 H Performed by certified flexboard operator at [facility] [id number] 17:23:00* Test Item Value Reference Range Interpretation Comments GLUBED (test code = GLUBED) 173 mg/dL 74-106 H Performed by certified flexboard operator at [facility] [id number] 12:16:00* Test Item Value Reference Range Interpretation Comments GLUBED (test code = GLUBED) 146 mg/dL 74-106 H Performed by certified flexboard operator at [facility] [id number] 08:35:00* Test Item Value Reference Range Interpretation Comments GLUBED (test code = GLUBED) 103 mg/dL 74-106 N Performed by certified flexboard operator at [facility] CBC W/MANUAL [id number] 06:55:00* Test Item Value Reference Range Interpretation [...] IMMAT) 0 % 0-0 N CBC W/MANUAL [id number] 06:27:00* Test Item Value Reference Range Interpretation [...] MORPHOLOGY (test code = PLTMORPH) BASIC METABOLIC [id number] 06:27:00* Test Item Value Reference Range Interpretation [...] CA) 8.3 mg/dL 8.5-10.1 L CBC W/MANUAL [id number] 06:27:00* Test Item Value Reference Range Interpretation [...] MORPHOLOGY (test code = PLTMORPH) CBC W/MANUAL [id number] 06:27:00* Test Item Value Reference Range Interpretation [...] MORPHOLOGY (test code = PLTMORPH) CBC W/MANUAL [id number] 06:27:00* Test Item Value Reference Range Interpretation [...] MORPHOLOGY (test code = PLTMORPH) CBC W/MANUAL [id number] 06:27:00* Test Item Value Reference Range Interpretation [...] MORPHOLOGY (test code = PLTMORPH) BASIC METABOLIC [id number] 06:18:00* Test Item Value Reference Range Interpretation [...] CALCIUM (test code = CA) mg/dL 8.5-10.1 [id number] 03:44:00* Test Item Value Reference Range Interpretation Comments TROPONIN-I (test code = TROPI) <0.015 ng/mL 0-0.045 N [id number] 23:58:00* Test Item Value Reference Range Interpretation Comments TROPONIN-I (test code = TROPI) <0.015 ng/mL 0-0.045 N [id number] 21:18:00* Test Item Value Reference Range Interpretation Comments GLUBED (test code = GLUBED) 189 mg/dL 74-106 H Performed by certified flexboard operator [facility] [id number] 17:08:00* Test Item Value Reference Range Interpretation Comments TROPONIN-I (test code = TROPI) <0.015 ng/mL 0-0.045 N [id number] 16:34:00* Test Item Value Reference Range Interpretation Comments GLUBED (test code = GLUBED) 151 mg/dL 74-106 H Performed by certified flexboard operator at [facility] [id number] 11:36:00* Test Item Value Reference Range Interpretation Comments GLUBED (test code = GLUBED) 163 mg/dL 74-106 H Performed by certified flexboard operator at [facility] [id number] 10:47:00* Test Item Value Reference Range Interpretation Comments TROPONIN-I (test code = TROPI) <0.015 ng/mL 0-0.045 N [id number] 07:56:00* Test Item Value Reference Range Interpretation Comments GLUBED (test code = GLUBED) 100 mg/dL 74-106 N Performed by certified flexboard operator at [facility] BASIC METABOLIC [id number] 06:36:00* Test Item Value Reference Range Interpretation [...] CA) 8.2 mg/dL 8.5-10.1 L CBC W/AUTO [id number] 06:35:00* Test Item Value Reference Range Interpretation [...] NRBC#) 0.00 K/mm3 0.0-0.1 N BASIC METABOLIC [id number] 06:32:00* Test Item Value Reference Range Interpretation [...] CALCIUM (test code = CA) mg/dL 8.5-10.1 [id number] 16:38:00* Test Item Value Reference Range Interpretation Comments GLUBED (test code = GLUBED) 197 mg/dL 74-106 H Performed by certified flexboard operator [facility] [id number] 12:13:00* Test Item Value Reference Range Interpretation Comments GLUBED (test code = GLUBED) 220 mg/dL 74-106 H Performed by certified flexboard operator [facility] [id number] 08:08:00* Test Item Value Reference Range Interpretation Comments GLUBED (test code = GLUBED) 112 mg/dL 74-106 H Performed by certified flexboard operator [facility] CBC W/AUTO [id number] 07:33:00* Test Item Value Reference Range Interpretation [...] NRBC#) 0.00 K/mm3 0.0-0.1 N BASIC METABOLIC [id number] 07:19:00* Test Item Value Reference Range Interpretation [...] CA) 8.1 mg/dL 8.5-10.1 L BASIC METABOLIC [id number] 07:17:00* Test Item Value Reference Range Interpretation [...] CALCIUM (test code = CA) mg/dL 8.5-10.1 [id number] 20:59:00* Test Item Value Reference Range Interpretation Comments GLUBED (test code = GLUBED) 246 mg/dL 74-106 H Performed by certified flexboard operator at [facility] [id number] 18:02:00* Test Item Value Reference Range Interpretation Comments GLUBED (test code = GLUBED) 257 mg/dL 74-106 H Performed by certified flexboard operator [facility] [id number] 13:02:00* Test Item Value Reference Range Interpretation Comments GLUBED (test code = GLUBED) 143 mg/dL 74-106 H Performed by certified flexboard operator [facility] [id number] 09:09:00* Test Item Value Reference Range Interpretation Comments GLUBED (test code = GLUBED) 170 mg/dL 74-106 H Performed by certified flexboard operator [facility] CBC W/MANUAL [id number] 06:18:00* Test Item Value Reference Range Interpretation [...] IMMAT) 0 % 0-0 N BASIC METABOLIC [id number] 06:12:00* Test Item Value Reference Range Interpretation [...] CA) 8.3 mg/dL 8.5-10.1 L CBC W/MANUAL [id number] 05:31:00* Test Item Value Reference Range Interpretation [...] MORPHOLOGY (test code = PLTMORPH) CBC W/MANUAL [id number] 05:31:00* Test Item Value Reference Range Interpretation [...] MORPHOLOGY (test code = PLTMORPH) CBC W/MANUAL [id number] 05:31:00* Test Item Value Reference Range Interpretation [...] MORPHOLOGY (test code = PLTMORPH) CBC W/MANUAL [id number] 05:30:00* Test Item Value Reference Range Interpretation [...] MORPHOLOGY (test code = PLTMORPH) CBC W/MANUAL [id number] 05:30:00* Test Item Value Reference Range Interpretation [...] PLTEST) PLATELET MORPHOLOGY (test code = PLTMORPH) [id number] 21:06:00* Test Item Value Reference Range Interpretation Comments GLUBED (test code = GLUBED) 172 mg/dL 74-106 H Performed by certified flexboard operator at [facility] [id number] 16:52:00* Test Item Value Reference Range Interpretation Comments GLUBED (test code = GLUBED) 216 mg/dL 74-106 H Performed by certified flexboard operator [facility] [id number] 08:13:00* Test Item Value Reference Range Interpretation Comments GLUBED (test code = GLUBED) 130 mg/dL 74-106 H Performed by certified flexboard operator [facility] CBC W/MANUAL [id number] 06:59:00* Test Item Value Reference Range Interpretation [...] IMMAT) 0 % 0-0 N BASIC METABOLIC [id number] 06:45:00* Test Item Value Reference Range Interpretation [...] CA) 8.4 mg/dL 8.5-10.1 L CBC W/MANUAL [id number] 06:13:00* Test Item Value Reference Range Interpretation [...] MORPHOLOGY (test code = PLTMORPH) CBC W/MANUAL [id number] 06:13:00* Test Item Value Reference Range Interpretation [...] MORPHOLOGY (test code = PLTMORPH) CBC W/MANUAL [id number] 06:13:00* Test Item Value Reference Range Interpretation [...] MORPHOLOGY (test code = PLTMORPH) CBC W/MANUAL [id number] 06:13:00* Test Item Value Reference Range Interpretation [...] MORPHOLOGY (test code = PLTMORPH) CBC W/MANUAL [id number] 06:13:00* Test Item Value Reference Range Interpretation [...] PLATELET MORPHOLOGY (test code = PLTMORPH) URINALYSIS [id number] 21:36:00* Test Item Value Reference Range Interpretation [...] FEW #/HPF NONE Urine Source? Clean CatchURINALYSIS [id number] 21:35:00* Test Item Value Reference Range Interpretation [...] HPF NONE Urine Source? Clean CatchCBC W/AUTO [id number] 20:48:00* Test Item Value Reference Range Interpretation [...] DIFF REQUIRED (test code = MDIFF) NO [id number] 20:28:00* Test Item Value Reference Range Interpretation Comments GLUBED (test code = GLUBED) 204 mg/dL 74-106 H Performed by certified flexboard operator at [facility] CBC W/AUTO [id number] 14:39:00* Test Item Value Reference Range Interpretation [...] code = NRBC#) 0.00 K/mm3 0.0-0.1 N [id number] 14:17:00* Test Item Value Reference Range Interpretation Comments GLUBED (test code = GLUBED) 147 mg/dL 74-106 H Performed by certified flexboard operator at [facility] CBC W/MANUAL [id number] 06:47:00* Test Item Value Reference Range Interpretation [...] IMMAT) 0 % 0-0 N CBC W/MANUAL [id number] 05:39:00* Test Item Value Reference Range Interpretation [...] MORPHOLOGY (test code = PLTMORPH) CBC W/MANUAL [id number] 05:39:00* Test Item Value Reference Range Interpretation [...] MORPHOLOGY (test code = PLTMORPH) CBC W/MANUAL [id number] 05:39:00* Test Item Value Reference Range Interpretation [...] MORPHOLOGY (test code = PLTMORPH) CBC W/MANUAL [id number] 05:38:00* Test Item Value Reference Range Interpretation [...] MORPHOLOGY (test code = PLTMORPH) BASIC METABOLIC [id number] 05:19:00* Test Item Value Reference Range Interpretation [...] CA) 8.4 mg/dL 8.5-10.1 L BASIC METABOLIC [id number] 05:14:00* Test Item Value Reference Range Interpretation [...] = CA) 8.4 mg/dL 8.5-10.1 L HGB [id number] 12:52:00* Test Item Value Reference Range Interpretation Comments HEMOGLOBIN (test code = HGB) 8.8 gram/dL 13.0-17.5 L HEMATOCRIT (test code = HCT) 29.7 % 42.0-52.0 L CBC W/AUTO [id number] 08:40:00* Test Item Value Reference Range Interpretation [...] (test code = MDIFF) NO BASIC METABOLIC [id number] 08:38:00* Test Item Value Reference Range Interpretation [...] CA) 8.4 mg/dL 8.5-10.1 L BASIC METABOLIC [id number] 08:36:00* Test Item Value Reference Range Interpretation [...] code = CA) 8.4 mg/dL 8.5-10.1 L [id number] 21:56:00* Test Item Value Reference Range Interpretation Comments GLUBED (test code = GLUBED) 138 mg/dL 74-106 H Performed by certified flexboard operator at [facility] BASIC METABOLIC [id number] 15:24:00* Test Item Value Reference Range Interpretation [...] CA) 9.0 mg/dL 8.5-10.1 N HEPATIC FUNCTION [id number] 15:24:00* Test Item Value Reference Range Interpretation [...] due to change in reagent. BASIC METABOLIC [id number] 15:17:00* Test Item Value Reference Range Interpretation [...] code = CA) mg/dL 8.5-10.1 HEPATIC FUNCTION [id number] 15:17:00* Test Item Value Reference Range Interpretation [...] (test code = ALKP) IUnit/L 45-117 PROTHROMBIN [id number] 15:14:00* Test Item Value Reference Range Interpretation [...] (2.5-3.5) IS PATIENT ON ANTICOAGULANTS? NTHROMBOPLASTIN TIME [id number] 15:14:00* Test Item Value Reference Range Interpretation Comments THROMBOPLASTIN TIME PARTIAL (test code = PTT) 34.1 seconds 25.0-36. 5 N IS PATIENT ON ANTICOAGULANTS? NCBC W/O [id number] 15:04:00* Test Item Value Reference Range Interpretation [...] code = MPV) 8.3 fL 6.7-11.0 N [id number] 16:28:00* Test Item Value Reference Range Interpretation Comments GLUBED (test code = GLUBED) 166 mg/dL 74-106 H Performed by certified flexboard operator at [facility] [id number] 16:28:00* Test Item Value Reference Range Interpretation Comments GLUBED (test code = GLUBED) 287 mg/dL 74-106 H Performed by certified flexboard operator at [facility] [id number] 08:23:00* Test Item Value Reference Range Interpretation Comments GLUBED (test code = GLUBED) 160 mg/dL 74-106 H Performed by certified flexboard operator [facility] [id number] 21:32:00* Test Item Value Reference Range Interpretation Comments GLUBED (test code = GLUBED) 179 mg/dL 74-106 H Performed by certified flexboard operator at [facility] [id number] 16:51:00* Test Item Value Reference Range Interpretation Comments GLUBED (test code = GLUBED) 251 mg/dL 74-106 H Performed by certified flexboard operator at [facility] [id number] 14:59:00* Test Item Value Reference Range Interpretation Comments GLUBED (test code = GLUBED) 182 mg/dL 74-106 H Performed by certified flexboard operator at [facility] [id number] 08:38:00* Test Item Value Reference Range Interpretation Comments GLUBED (test code = GLUBED) 165 mg/dL 74-106 H Performed by certified flexboard operator at [facility] [id number] 20:41:00* Test Item Value Reference Range Interpretation Comments GLUBED (test code = GLUBED) 301 mg/dL 74-106 H Performed by certified flexboard operator at [facility] BASIC METABOLIC [id number] 18:54:00* Test Item Value Reference Range Interpretation [...] CA) 8.0 mg/dL 8.5-10.1 L COMPREHENSIVE METABOLIC [id number] 18:54:00* Test Item Value Reference Range Interpretation [...] due to change in reagent. BASIC METABOLIC [id number] 18:45:00* Test Item Value Reference Range Interpretation [...] code = CA) mg/dL 8.5-10.1 COMPREHENSIVE METABOLIC [id number] 18:45:00* Test Item Value Reference Range Interpretation [...] TOTAL (test code = ALKP) IUnit/L 45-117 [id number] 17:09:00* Test Item Value Reference Range Interpretation Comments GLUBED (test code = GLUBED) 201 mg/dL 74-106 H Performed by certified flexboard operator at [facility] [id number] 12:02:00* Test Item Value Reference Range Interpretation Comments GLUBED (test code = GLUBED) 301 mg/dL 74-106 H Performed by certified flexboard operator at [facility] [id number] 08:41:00* Test Item Value Reference Range Interpretation Comments GLUBED (test code = GLUBED) 135 mg/dL 74-106 H Performed by certified flexboard operator at [facility] [id number] 21:25:00* Test Item Value Reference Range Interpretation Comments GLUBED (test code = GLUBED) 219 mg/dL 74-106 H Performed by certified flexboard operator at [facility] [id number] 16:51:00* Test Item Value Reference Range Interpretation Comments GLUBED (test code = GLUBED) 233 mg/dL 74-106 H Performed by certified flexboard operator at [facility] [id number] 14:41:00* Test Item Value Reference Range Interpretation Comments GLUBED (test code = GLUBED) 242 mg/dL 74-106 H Performed by certified flexboard operator at [facility] [id number] 13:18:00* Test Item Value Reference Range Interpretation [...] This LDL result is a direct measurement.========= [id number] 08:37:00* Test Item Value Reference Range Interpretation Comments GLUBED (test code = GLUBED) 115 mg/dL 74-106 H Performed by certified flexboard operator at [facility] [id number] 23:09:00* Test Item Value Reference Range Interpretation Comments TROPONIN-I (test code = TROPI) <0.015 ng/mL 0-0.045 N COMMENTS TO [employer]OMOTIONS ASSISTANT [employer]ET[employer]: COLLECT 3 HOURS AFTER PREVIOUS [id number] 21:01:00* Test Item Value Reference Range Interpretation Comments TROPONIN-I (test code = TROPI) <0.015 ng/mL 0-0.045 N COMMENTS TO PROMOTIONS ASSISTANT SALES MARKETING: COLLECT 3 HOURS AFTER PREVIOUS [id number] 20:44:00* Test Item Value Reference Range Interpretation Comments GLUBED (test code = GLUBED) 191 mg/dL 74-106 H Performed by certified flexboard operator at [facility] [id number] 17:03:00* Test Item Value Reference Range Interpretation Comments GLUBED (test code = GLUBED) 161 mg/dL 74-106 H Performed by certified flexboard operator at [facility] B-TYPE NATRIURETIC [id number] 14:47:00* Test Item Value Reference Range Interpretation Comments B-TYPE NATRIURETIC PEPTIDE (test code = BNP) 234.48 pgram/mL 0-100 H BASIC METABOLIC [id number] 14:34:00* Test Item Value Reference Range Interpretation [...] CA) 8.9 mg/dL 8.5-10.1 N HEPATIC FUNCTION [id number] 14:34:00* Test Item Value Reference Range Interpretation [...] reference range due to change in reagent. [id number] 14:34:00* Test Item Value Reference Range Interpretation Comments LIPASE (test code = LIP) 157 U/L 73.0-393.0 N [id number] 14:34:00* Test Item Value Reference Range Interpretation Comments MAGNESIUM (test code = MAG) 2.2 mg/dL 1.8-2.4 N [id number] 14:34:00* Test Item Value Reference Range Interpretation Comments TROPONIN-I (test code = TROPI) <0.015 ng/mL 0-0.045 N BASIC METABOLIC [id number] 14:26:00* Test Item Value Reference Range Interpretation [...] code = CA) mg/dL 8.5-10.1 HEPATIC FUNCTION [id number] 14:26:00* Test Item Value Reference Range Interpretation [...] TOTAL (test code = ALKP) IUnit/L 45-117 [id number] 14:26:00* Test Item Value Reference Range Interpretation Comments LIPASE (test code = LIP) U/L 73.0-393.0 [id number] 14:26:00* Test Item Value Reference Range Interpretation Comments MAGNESIUM (test code = MAG) mg/dL 1.8-2.4 [id number] 14:26:00* Test Item Value Reference Range Interpretation Comments TROPONIN-I (test code = TROPI) ng/mL 0-0.045 PROTHROMBIN [id number] 14:20:00* Test Item Value Reference Range Interpretation [...] (2.5-3.5) IS PATIENT ON ANTICOAGULANTS? NTHROMBOPLASTIN TIME [id number] 14:20:00* Test Item Value Reference Range Interpretation Comments THROMBOPLASTIN TIME PARTIAL (test code = PTT) 30.2 seconds 25.0-36. 5 N IS PATIENT ON ANTICOAGULANTS? N- XR CHEST 1 [id number] 14:12:00 FAX: Elizabet Garcia MD [phone] [place]: B St: REG Name: XOCHILT REYNA [facility] : [birth year] 41 Age/S: 78/M [address] [facility] Unit #: [id number] Loc: [place] [address] Phys: Elizabet Garcia MD Acct: [id number] Dis Date: Status: REG ER PHONE #: [phone] Exam Date: 12/06/2018 1350 FAX #: [phone] Reason: CHEST PAIN EXAMS: CPT CODE: [id number] XR CHEST 1 V 47142 REASON FOR EXAM: CHEST PAIN Exam Order [...] 14 12 Reported and signed by: Anupam Hernadez C: Elizabet Garcia MD Technologist: REGINA CROSS RT(R) Trnscrd Date/Time/By: 12/06/2018 (1418) : By: [email or web address] Orig Print D/T: S: 12/06/2018 (9446) PAGE 1 Signed Report CBC W/O [id number] 14:11:00* Test Item Value Reference Range Interpretation [...] MPV) 8.6 fL 6.7-11.0 N TROPONIN I [id number] 13:55:00* Test Item Value Reference Range Interpretation [...] used. - SP FLUORO GUID CTRL ACC [id number] 13:38:00 Name: XOCHILT EPSTEIN [facility] : 1940 Age/S: 77 / M [address] [facility] Unit #: [id number] Loc: [place] [address] Phys: Guille Liao MD Acct: [id number] Dis Date: Status: [facility] PHONE #: [phone] Exam Date: 10/28/2018 1230 FAX #: [phone] Reason: EXAMS: CPT CODE: [id number] SP FLUORO GUID CTRL ACC DEV 96855 Fluoro Time: 2 DAP (Gy m2): 0.3 Air Kerma (mGy): 2.79 EXAM: Removal of a tunneled central line with fluoroscopic guidance; INFORMATION: [facility] patient with history of right foot infection; [...] DAP : 357 mGy sq cm at 2720 Reported and signed by: Guille Liao M.D. CC: Buck Farr MD; Guille Liao MD Technologist: oJhn Paul CONLEY(R) Trnscb Date/Time: 10/28 (2871) [email or web address] Orig Print D/T: S: 10/29/2018 (08 3) PAGE 1 Signed Report [id number] 12:42:00* Test Item Value Reference Range Interpretation Comments GLUBED (test code = GLUBED) 146 mg/dL 74-106 H Performed by certified flexboard operator at [facility] [id number] 13:21:00* Test Item Value Reference Range Interpretation Comments GLUBED (test code = GLUBED) 57 mg/dL 74-106 L Performed by certified flexboard operator at [facility] EXTREMITY,[id number] 14:54:00 RUN DATE: 10/18/18 [facility] PAGE 1 RUN TIME: 1454 Specimen Inqui ry RUN USER: INTERFACE PATIENT: XOCHILT EPSTEIN ACCT #: [id number] LOC: [place] U #: [id number] AGE/SX: 77/M ROOM: 2073 RE09/26/18REG DR: Buck Farr MD : 40 BED: A DIS: 10/17/18 STATUS: DIS IN TLOC: SPEC #: [id number] RECD: 10/08/18 STATUS: MARLO REQ #: [id number] BERNARD: 10/07/18- SUBM DR: Carrie Harper MD ENTERED: 10/08/18 SP TYPE: EXT. AMPU OTHR DR: Hernando Encarnacion MD, Chad C DPM Egziti, Tsegaw MD F ahnbulleh MD,Talon Herrera MD, Irfan MD Kha n,Salman A MDORDERED: GROSS COPIES TO: Hernando Canales MD [address] [place], [place] [address] Shamir Thomson DPM [address] [facility] [address] [place] [address] Anabel Arambula MD [address] [place] [address] Albaro HICKS,[facility] [address] [place] [address] Talon Coates MD [address] [place] [phone] Yani Herbert MD [address] [facility] [address] [place] [phone] Codey Carpio MD [address] [facility] [address] [place] [address] CONTINUED ON NEXT PAGE RUN DATE: 10/18/18 [facility] PAGE 2 RUN TIME: 1454 Specimen Inquiry RUN USER: INTERFACE SPEC #: [id number] PATIENT: XOCHILT EPSTEIN #[id number] (Continued) COPIES TO: (Continued) Carrie Harper MD [address] [place] [address] PROCEDURES: GROSS (10/18/18-1302) TISSUES: LEFT LEG - BELOW KNEE AMPUTATION CLINICAL HISTORY COLLECTION DA TE: 10/05/2018 LEFT HEEL OSTEOMYELITIS FINAL DIAGNOSIS Left leg , below the knee amputation: DEEP ULCERATION WITH ASSOCIATED OSTEOMYELITI S, HEEL ULCERATIONS, DISTAL FOOT SEVERE CALCIFIC ATHEROSCLEROSIS DMW/bhargav A 74914, [address]6213 MACROSCOPIC The specimen is received in a [...] evaluation in cassette (1C). GROSS PERFORMED AT [facility] [address] [facility] [place] [address] (P)[phone] CONTINUED ON NEXT PAGE RUN DATE: 10/18/18 [facility] PAGE 3 RUN TIME: 1453 Specimen Inquiry RUN USER: INTERFACE SPEC #: [id number] PATIENT: XOCHILT EPSTEINELICEO #[id number] (Continued) MICROSCOPIC All of the stains, including any controls performed, stain ap propriately. MICROSCOPIC PERFORMED AT [facility] [address] [place] [address] (p)[phone] PERFORMING SITE Diagnosis performed at: [facility] [address] [place], [place] [address] Signed SIGNATURE ON Sol Kahn MD 10/18/18 1454 END OF REPORT GLUBED 2018-10-17 12:06:00* Test Item Value Reference Range Interpretation Comments GLUBED (test code = GLUBED) 192 mg/dL 74-106 H Performed by certified flexboard operator at [facility] [id number] 06:39:00* Test Item Value Reference Range Interpretation Comments GLUBED (test code = GLUBED) 113 mg/dL 74-106 H Performed by certified flexboard operator at [facility] [id number] 06:06:00* Test Item Value Reference Range Interpretation Comments POTASSIUM (test code = K) 3.7 mmol/L 3.5-5.1 N [id number] 21:24:00* Test Item Value Reference Range Interpretation Comments GLUBED (test code = GLUBED) 175 mg/dL 74-106 H Performed by certified flexboard operator at [facility] [id number] 18:02:00* Test Item Value Reference Range Interpretation Comments GLUBED (test code = GLUBED) 245 mg/dL 74-106 H Performed by certified flexboard operator [facility]~ [id number] 12:45:00* Test Item Value Reference Range Interpretation Comments GLUBED (test code = GLUBED) 253 mg/dL 74-106 H Performed by certified flexboard operator [facility]~ CBC W/MANUAL [id number] 06:50:00* Test Item Value Reference Range Interpretation [...] code = IMMAT) 0 % 0-0 N [id number] 06:40:00* Test Item Value Reference Range Interpretation Comments GLUBED (test code = GLUBED) 106 mg/dL 74-106 N Performed by certified flexboard operator at [facility] [id number] 06:08:00* Test Item Value Reference Range Interpretation Comments GLUBED (test code = GLUBED) 56 mg/dL 74-106 L Performed by certified flexboard operator at [facility] BASIC METABOLIC [id number] 05:57:00* Test Item Value Reference Range Interpretation [...] CA) 7.7 mg/dL 8.5-10.1 L BASIC METABOLIC [id number] 05:48:00* Test Item Value Reference Range Interpretation [...] code = CA) mg/dL 8.5-10.1 CBC W/MANUAL [id number] 05:25:00* Test Item Value Reference Range Interpretation [...] PLTEST) PLATELET MORPHOLOGY (test code = PLTMORPH) [id number] 21:55:00* Test Item Value Reference Range Interpretation Comments GLUBED (test code = GLUBED) 248 mg/dL 74-106 H Performed by certified flexboard operator at [facility] [id number] 19:46:00* Test Item Value Reference Range Interpretation Comments GLUBED (test code = GLUBED) 179 mg/dL 74-106 H Performed by certified flexboard operator at [facility] [id number] 12:51:00* Test Item Value Reference Range Interpretation Comments GLUBED (test code = GLUBED) 167 mg/dL 74-106 H Performed by certified flexboard operator at [facility] [id number] 09:42:00* Test Item Value Reference Range Interpretation Comments GLUBED (test code = GLUBED) 237 mg/dL 74-106 H Performed by certified flexboard operator at [facility] [id number] 06:40:00* Test Item Value Reference Range Interpretation Comments GLUBED (test code = GLUBED) 132 mg/dL 74-106 H Performed by certified flexboard operator at [facility] [id number] 17:15:00* Test Item Value Reference Range Interpretation Comments GLUBED (test code = GLUBED) 159 mg/dL 74-106 H Performed by certified flexboard operator at [facility] [id number] 17:15:00* Test Item Value Reference Range Interpretation Comments GLUBED (test code = GLUBED) 182 mg/dL 74-106 H Performed by certified flexboard operator at [facility] CBC W/AUTO [id number] 06:53:00* Test Item Value Reference Range Interpretation [...] = MDIFF) NO, ONLY SCAN NEEDED DIFFERENTIAL [id number] 06:53:00* Test Item Value Reference Range Interpretation Comments STAIN ACCEPTABILITY (test code = STN ACCEPTABLE) STAIN ACCEPTABLE ANISOCYTOSIS (test code = ANISO) 1+ MORPHOLOGY COMMENT (test code = MOC) NORMAL PLATELET ESTIMATE (test code = PLTEST) ADEQUATE PLATELET MORPHOLOGY (test code = PLTMORPH) NORMAL [id number] 06:11:00* Test Item Value Reference Range Interpretation Comments GLUBED (test code = GLUBED) 131 mg/dL 74-106 H Performed by certified flexboard operator at [facility] BASIC METABOLIC [id number] 05:51:00* Test Item Value Reference Range Interpretation [...] code = CA) 7.7 mg/dL 8.5-10.1 L [id number] 05:51:00* Test Item Value Reference Range Interpretation Comments MAGNESIUM (test code = MAG) 1.5 mg/dL 1.8-2.4 L BASIC METABOLIC [id number] 05:45:00* Test Item Value Reference Range Interpretation [...] CALCIUM (test code = CA) mg/dL 8.5-10.1 [id number] 05:45:00* Test Item Value Reference Range Interpretation Comments MAGNESIUM (test code = MAG) mg/dL 1.8-2.4 CBC W/AUTO [id number] 05:35:00* Test Item Value Reference Range Interpretation [...] = MDIFF) NO, ONLY SCAN NEEDED DIFFERENTIAL [id number] 05:35:00* Test Item Value Reference Range Interpretation Comments STAIN ACCEPTABILITY (test code = STN ACCEPTABLE) CABOT RINGS (test code = CAB) MORPHOLOGY COMMENT (test code = MOC) PLATELET ESTIMATE (test code = PLTEST) PLATELET MORPHOLOGY (test code = PLTMORPH) CBC W/AUTO [id number] 05:35:00* Test Item Value Reference Range Interpretation [...] = MDIFF) NO, ONLY SCAN NEEDED DIFFERENTIAL [id number] 05:35:00* Test Item Value Reference Range Interpretation Comments STAIN ACCEPTABILITY (test code = STN ACCEPTABLE) CABOT RINGS (test code = CAB) MORPHOLOGY COMMENT (test code = MOC) PLATELET ESTIMATE (test code = PLTEST) PLATELET MORPHOLOGY (test code = PLTMORPH) CBC W/AUTO [id number] 05:35:00* Test Item Value Reference Range Interpretation [...] = MDIFF) NO, ONLY SCAN NEEDED DIFFERENTIAL [id number] 05:35:00* Test Item Value Reference Range Interpretation Comments STAIN ACCEPTABILITY (test code = STN ACCEPTABLE) MORPHOLOGY COMMENT (test code = MOC) PLATELET ESTIMATE (test code = PLTEST) PLATELET MORPHOLOGY (test code = PLTMORPH) CBC W/AUTO [id number] 05:34:00* Test Item Value Reference Range Interpretation [...] = MDIFF) NO, ONLY SCAN NEEDED DIFFERENTIAL [id number] 05:34:00* Test Item Value Reference Range Interpretation Comments STAIN ACCEPTABILITY (test code = STN ACCEPTABLE) CABOT RINGS (test code = CAB) MORPHOLOGY COMMENT (test code = MOC) PLATELET ESTIMATE (test code = PLTEST) PLATELET MORPHOLOGY (test code = PLTMORPH) [id number] 21:23:00* Test Item Value Reference Range Interpretation Comments GLUBED (test code = GLUBED) 110 mg/dL 74-106 H Performed by certified flexboard operator at [facility] [id number] 17:19:00* Test Item Value Reference Range Interpretation Comments GLUBED (test code = GLUBED) 97 mg/dL 74-106 N Performed by certified flexboard operator at [facility] [id number] 17:16:00* Test Item Value Reference Range Interpretation Comments GLUBED (test code = GLUBED) 142 mg/dL 74-106 H Performed by certified flexboard operator at [facility] [id number] 12:40:00* Test Item Value Reference Range Interpretation Comments GLUBED (test code = GLUBED) 124 mg/dL 74-106 H Performed by certified flexboard operator at [facility] URINALYSIS [id number] 12:01:00* Test Item Value Reference Range Interpretation [...] NONE A Urine Source? Clean CatchBASIC METABOLIC [id number] 07:58:00* Test Item Value Reference Range Interpretation [...] CA) 8.0 mg/dL 8.5-10.1 L CBC W/AUTO [id number] 07:28:00* Test Item Value Reference Range Interpretation [...] code = NRBC#) 0.00 K/mm3 0.0-0.1 N [id number] 21:16:00* Test Item Value Reference Range Interpretation Comments GLUBED (test code = GLUBED) 164 mg/dL 74-106 H Performed by certified flexboard operator at [facility] [id number] 16:29:00* Test Item Value Reference Range Interpretation Comments GLUBED (test code = GLUBED) 260 mg/dL 74-106 H Performed by certified flexboard operator at [facility] [id number] 11:42:00* Test Item Value Reference Range Interpretation Comments GLUBED (test code = GLUBED) 230 mg/dL 74-106 H Performed by certified flexboard operator at [facility] [id number] 05:30:00* Test Item Value Reference Range Interpretation Comments GLUBED (test code = GLUBED) 113 mg/dL 74-106 H Performed by certified flexboard operator at [facility] [id number] 20:37:00* Test Item Value Reference Range Interpretation Comments GLUBED (test code = GLUBED) 252 mg/dL 74-106 H Performed by certified flexboard operator at [facility] [id number] 16:20:00* Test Item Value Reference Range Interpretation Comments GLUBED (test code = GLUBED) 175 mg/dL 74-106 H Performed by certified flexboard operator at [facility] PROCALCITONIN (PCT)2018-10-11 14:22:00* Test Item Value Reference [...] interpreted taking into account the patients history. [id number] 13:04:00* Test Item Value Reference Range Interpretation Comments GLUBED (test code = GLUBED) 242 mg/dL 74-106 H Performed by certified flexboard operator at [facility] BASIC METABOLIC [id number] 12:15:00* Test Item Value Reference Range Interpretation [...] CA) 7.5 mg/dL 8.5-10.1 L BASIC METABOLIC [id number] 12:13:00* Test Item Value Reference Range Interpretation [...] CALCIUM (test code = CA) mg/dL 8.5-10.1 [id number] 06:12:00* Test Item Value Reference Range Interpretation Comments GLUBED (test code = GLUBED) 182 mg/dL 74-106 H Performed by certified flexboard operator at [facility] [id number] 22:30:00* Test Item Value Reference Range Interpretation Comments GLUBED (test code = GLUBED) 138 mg/dL 74-106 H Performed by certified flexboard operator at [facility] [id number] 16:56:00* Test Item Value Reference Range Interpretation Comments GLUBED (test code = GLUBED) 159 mg/dL 74-106 H Performed by certified flexboard operator at [facility] CBC W/AUTO [id number] 14:49:00* Test Item Value Reference Range Interpretation [...] code = NRBC#) 0.00 K/mm3 0.0-0.1 N [id number] 12:35:00* Test Item Value Reference Range Interpretation Comments GLUBED (test code = GLUBED) 223 mg/dL 74-106 H Performed by certified flexboard operator at [facility] [id number] 05:11:00* Test Item Value Reference Range Interpretation Comments GLUBED (test code = GLUBED) 142 mg/dL 74-106 H Performed by certified flexboard operator at [facility] [id number] 20:50:00* Test Item Value Reference Range Interpretation Comments GLUBED (test code = GLUBED) 162 mg/dL 74-106 H Performed by certified flexboard operator at [facility] [id number] 17:35:00* Test Item Value Reference Range Interpretation Comments GLUBED (test code = GLUBED) 198 mg/dL 74-106 H Performed by certified flexboard operator at [facility] [id number] 12:35:00* Test Item Value Reference Range Interpretation Comments GLUBED (test code = GLUBED) 202 mg/dL 74-106 H Performed by certified flexboard operator at [facility] - SP FLUORO GUID CTRL ACC [id number] 07:17:00 Name: XOCHILT EPSTEIN [facility] : 1940 Age/S: 77 / M [address] [facility] Unit #: [id number] Loc: [place] [address] Phys: Guille Liao MD Acct: [id number] Dis Date: Status: PRE [facility] PHONE #: [phone] Exam Date: 10/07/2018 0946 FAX #: [phone] Reason: EXAMS: CPT CODE: [id number] SP FLUORO GUID CTRL ACC DEV 49642 Fluoro Time: 2 DAP (Gy m2): 0.84 [...] Yordan Clemons M.D. CC: Technologist: John Paul Perry RT(R) Trnscb Date/Time: 10/09/2018 (716) tMIGUEL ÁNGEL Orig Print D/T: S: 10/09/2018 (719) PAGE 1 Signed Report [id number] 06:29:00* Test Item Value Reference Range Interpretation Comments GLUBED (test code = GLUBED) 111 mg/dL 74-106 H Performed by certified flexboard operator at [facility] [id number] 21:31:00* Test Item Value Reference Range Interpretation Comments GLUBED (test code = GLUBED) 64 mg/dL 74-106 L Performed by certified flexboard operator at [facility] [id number] 18:29:00* Test Item Value Reference Range Interpretation Comments GLUBED (test code = GLUBED) 171 mg/dL 74-106 H Performed by certified flexboard operator at [facility] [id number] 13:11:00* Test Item Value Reference Range Interpretation Comments GLUBED (test code = GLUBED) 132 mg/dL 74-106 H Performed by certified flexboard operator at [facility] FE W/TOTAL IRON BINDING CAP.2018-10-08 11:45:00* Test Item Value Reference Range Interpretation Comments SERUM IRON (test code = IRON) 19 ug/dL 50-175 L TOTAL IRON BINDING CAPACITY (test code = TIBC) 99 mcg/dL 250-450 L IRON SATURATION (test code = FESAT) 19.19 % 13-45 N VITAMIN [id number] 11:45:00* Test Item Value Reference Range Interpretation Comments VITAMIN B12 (test code = VITB12) 362 pg/mL 193-986 N FOLIC [id number] 11:45:00* Test Item Value Reference Range Interpretation Comments FOLIC ACID (test code = FOL) 8.0 ng/mL 3.10-17.50 N [id number] 11:45:00* Test Item Value Reference Range Interpretation Comments FERRITIN (test code = LUCIUS) 2977 ng/mL 8-388 H [id number] 06:18:00* Test Item Value Reference Range Interpretation Comments GLUBED (test code = GLUBED) 169 mg/dL 74-106 H Performed by certified flexboard operator at [facility] [id number] 06:14:00* Test Item Value Reference Range Interpretation Comments GLUBED (test code = GLUBED) 103 mg/dL 74-106 N Performed by certified flexboard operator at [facility] COMPREHENSIVE METABOLIC [id number] 05:33:00* Test Item Value Reference Range Interpretation [...] due to change in reagent. CBC W/AUTO [id number] 05:04:00* Test Item Value Reference Range Interpretation [...] code = NRBC#) 0.00 K/mm3 0.0-0.1 N [id number] 16:47:00* Test Item Value Reference Range Interpretation Comments GLUBED (test code = GLUBED) 97 mg/dL 74-106 N Performed by certified flexboard operator at [facility] [id number] 11:31:00* Test Item Value Reference Range Interpretation Comments GLUBED (test code = GLUBED) 156 mg/dL 74-106 H Performed by certified flexboard operator at [facility] [id number] 08:08:00* Test Item Value Reference Range Interpretation Comments GLUBED (test code = GLUBED) 171 mg/dL 74-106 H Performed by certified flexboard operator at [facility] [id number] 08:08:00* Test Item Value Reference Range Interpretation Comments GLUBED (test code = GLUBED) 140 mg/dL 74-106 H Performed by certified flexboard operator [facility]~ [id number] 08:07:00* Test Item Value Reference Range Interpretation Comments GLUBED (test code = GLUBED) 184 mg/dL 74-106 H Performed by certified flexboard operator at [facility] [id number] 08:07:00* Test Item Value Reference Range Interpretation Comments GLUBED (test code = GLUBED) 174 mg/dL 74-106 H Performed by certified flexboard operator at [facility] [id number] 08:07:00* Test Item Value Reference Range Interpretation Comments GLUBED (test code = GLUBED) 92 mg/dL 74-106 N Performed by certified flexboard operator at [facility] [id number] 08:07:00* Test Item Value Reference Range Interpretation Comments GLUBED (test code = GLUBED) 54 mg/dL 74-106 L Performed by certified flexboard operator at [facility] [id number] 08:07:00* Test Item Value Reference Range Interpretation Comments GLUBED (test code = GLUBED) 189 mg/dL 74-106 H Performed by certified flexboard operator at [facility] [id number] 08:07:00* Test Item Value Reference Range Interpretation Comments GLUBED (test code = GLUBED) 156 mg/dL 74-106 H Performed by certified flexboard operator at [facility] [id number] 08:06:00* Test Item Value Reference Range Interpretation Comments GLUBED (test code = GLUBED) 182 mg/dL 74-106 H Performed by certified flexboard operator at [facility] [id number] 08:06:00* Test Item Value Reference Range Interpretation Comments GLUBED (test code = GLUBED) 375 mg/dL 74-106 H Performed by certified flexboard operator at [facility] [id number] 08:06:00* Test Item Value Reference Range Interpretation Comments GLUBED (test code = GLUBED) 329 mg/dL 74-106 H Performed by certified flexboard operator at [facility] CBC W/MANUAL [id number] 06:19:00* Test Item Value Reference Range Interpretation [...] IMMAT) 0 % 0-0 N COMPREHENSIVE METABOLIC [id number] 05:56:00* Test Item Value Reference Range Interpretation [...] due to change in reagent. COMPREHENSIVE METABOLIC [id number] 05:47:00* Test Item Value Reference Range Interpretation [...] code = ALKP) IUnit/L 45-117 CBC W/MANUAL [id number] 05:43:00* Test Item Value Reference Range Interpretation [...] MORPHOLOGY (test code = PLTMORPH) CBC W/MANUAL [id number] 05:43:00* Test Item Value Reference Range Interpretation [...] MORPHOLOGY (test code = PLTMORPH) CBC W/MANUAL [id number] 05:43:00* Test Item Value Reference Range Interpretation [...] MORPHOLOGY (test code = PLTMORPH) CBC W/MANUAL [id number] 05:43:00* Test Item Value Reference Range Interpretation [...] MORPHOLOGY (test code = PLTMORPH) CBC W/MANUAL [id number] 05:43:00* Test Item Value Reference Range Interpretation [...] PLTEST) PLATELET MORPHOLOGY (test code = PLTMORPH) [id number] 05:38:00* Test Item Value Reference Range Interpretation Comments GLUBED (test code = GLUBED) 248 mg/dL 74-106 H Performed by certified flexboard operator at [facility] [id number] 21:54:00* Test Item Value Reference Range Interpretation Comments GLUBED (test code = GLUBED) 174 mg/dL 74-106 H Performed by certified flexboard operator at [facility] [id number] 16:29:00* Test Item Value Reference Range Interpretation Comments GLUBED (test code = GLUBED) 145 mg/dL 74-106 H Performed by certified flexboard operator at [facility] [id number] 12:06:00* Test Item Value Reference Range Interpretation Comments GLUBED (test code = GLUBED) 158 mg/dL 74-106 H Performed by certified flexboard operator at [facility] CBC W/MANUAL [id number] 11:31:00* Test Item Value Reference Range Interpretation [...] = IMMAT) 0 % 0-0 N PROTHROMBIN [id number] 08:42:00* Test Item Value Reference Range Interpretation [...] ANTICOAGULANTS? YLIST ANTICOAGULANTS ASPIRIN PLAVIX THROMBOPLASTIN TIME [id number] 08:42:00* Test Item Value Reference Range Interpretation Comments THROMBOPLASTIN TIME PARTIAL (test code = PTT) 32.6 seconds 25.0-36. 5 N IS PATIENT ON ANTICOAGULANTS? YLIST ANTICOAGULANTS ASPIRIN PLAVIXBASIC METABOLIC [id number] 08:13:00* Test Item Value Reference Range Interpretation [...] CA) 7.5 mg/dL 8.5-10.1 L CBC W/MANUAL [id number] 08:01:00* Test Item Value Reference Range Interpretation [...] MORPHOLOGY (test code = PLTMORPH) CBC W/MANUAL [id number] 08:01:00* Test Item Value Reference Range Interpretation [...] MORPHOLOGY (test code = PLTMORPH) CBC W/MANUAL [id number] 08:01:00* Test Item Value Reference Range Interpretation [...] MORPHOLOGY (test code = PLTMORPH) CBC W/MANUAL [id number] 08:01:00* Test Item Value Reference Range Interpretation [...] MORPHOLOGY (test code = PLTMORPH) CBC W/MANUAL [id number] 08:01:00* Test Item Value Reference Range Interpretation [...] MORPHOLOGY (test code = PLTMORPH) BASIC METABOLIC [id number] 07:58:00* Test Item Value Reference Range Interpretation [...] CALCIUM (test code = CA) mg/dL 8.5-10.1 [id number] 05:53:00* Test Item Value Reference Range Interpretation Comments GLUBED (test code = GLUBED) 69 mg/dL 74-106 L Performed by certified flexboard operator at [facility] [id number] 15:55:00* Test Item Value Reference Range Interpretation Comments GLUBED (test code = GLUBED) 136 mg/dL 74-106 H Performed by certified flexboard operator at [facility] [id number] 07:08:00* Test Item Value Reference Range Interpretation Comments GLUBED (test code = GLUBED) 150 mg/dL 74-106 H Performed by certified flexboard operator [facility]~ [id number] 17:55:00* Test Item Value Reference Range Interpretation Comments GLUBED (test code = GLUBED) 139 mg/dL 74-106 H Performed by certified flexboard operator at [facility]2019-06-14 13:39:00* Test Item Value Reference Range Interpretation Comments GLUBED (test code = GLUBED) 131 mg/dL 74-106 H Performed by certified flexboard operator at [facility] BASIC METABOLIC [id number] 12:42:00* Test Item Value Reference Range Interpretation [...] code = CA) 7.5 mg/dL 8.5-10.1 L [id number] 05:28:00* Test Item Value Reference Range Interpretation Comments GLUBED (test code = GLUBED) 150 mg/dL 74-106 H Performed by certified flexboard operator at [facility] [id number] 21:08:00* Test Item Value Reference Range Interpretation Comments GLUBED (test code = GLUBED) 157 mg/dL 74-106 H Performed by certified flexboard operator at [facility] [id number] 17:33:00* Test Item Value Reference Range Interpretation Comments GLUBED (test code = GLUBED) 188 mg/dL 74-106 H Performed by certified flexboard operator at [facility] [id number] 17:05:00* Test Item Value Reference Range Interpretation Comments GLUBED (test code = GLUBED) 254 mg/dL 74-106 H Performed by certified flexboard operator at [facility] [id number] 15:09:00* Test Item Value Reference Range Interpretation Comments GLUBED (test code = GLUBED) 155 mg/dL 74-106 H Performed by certified flexboard operator at [facility] [id number] 05:19:00* Test Item Value Reference Range Interpretation Comments GLUBED (test code = GLUBED) 212 mg/dL 74-106 H Performed by certified flexboard operator at [facility] [id number] 20:56:00* Test Item Value Reference Range Interpretation Comments GLUBED (test code = GLUBED) 135 mg/dL 74-106 H Performed by certified flexboard operator at [facility] [id number] 11:58:00* Test Item Value Reference Range Interpretation Comments GLUBED (test code = GLUBED) 210 mg/dL 74-106 H Performed by certified flexboard operator at [facility] CBC W/MANUAL [id number] 09:44:00* Test Item Value Reference Range Interpretation [...] IMMAT) 0 % 0-0 N CBC W/MANUAL [id number] 09:02:00* Test Item Value Reference Range Interpretation [...] MORPHOLOGY (test code = PLTMORPH) CBC W/MANUAL [id number] 09:02:00* Test Item Value Reference Range Interpretation [...] MORPHOLOGY (test code = PLTMORPH) CBC W/MANUAL [id number] 09:02:00* Test Item Value Reference Range Interpretation [...] MORPHOLOGY (test code = PLTMORPH) CBC W/MANUAL [id number] 09:02:00* Test Item Value Reference Range Interpretation [...] MORPHOLOGY (test code = PLTMORPH) CBC W/MANUAL [id number] 09:02:00* Test Item Value Reference Range Interpretation [...] MORPHOLOGY (test code = PLTMORPH) BASIC METABOLIC [id number] 06:16:00* Test Item Value Reference Range Interpretation [...] code = CA) 7.7 mg/dL 8.5-10.1 L [id number] 05:11:00* Test Item Value Reference Range Interpretation Comments GLUBED (test code = GLUBED) 84 mg/dL 74-106 N Performed by certified flexboard operator at [facility] BASIC METABOLIC [id number] 13:22:00* Test Item Value Reference Range Interpretation [...] code = CA) 7.6 mg/dL 8.5-10.1 L [id number] 23:06:00* Test Item Value Reference Range Interpretation Comments GLUBED (test code = GLUBED) 148 mg/dL 74-106 H Performed by certified flexboard operator at [facility] [id number] 16:11:00* Test Item Value Reference Range Interpretation Comments GLUBED (test code = GLUBED) 202 mg/dL 74-106 H Performed by certified flexboard operator at [facility] CBC W/MANUAL [id number] 12:49:00* Test Item Value Reference Range Interpretation [...] code = IMMAT) 0 % 0-0 N [id number] 12:44:00* Test Item Value Reference Range Interpretation Comments GLUBED (test code = GLUBED) 211 mg/dL 74-106 H Performed by certified flexboard operator at [facility] CBC W/MANUAL [id number] 12:34:00* Test Item Value Reference Range Interpretation [...] IMMAT) 0 % 0-0 N CBC W/MANUAL [id number] 11:23:00* Test Item Value Reference Range Interpretation [...] MORPHOLOGY (test code = PLTMORPH) CBC W/MANUAL [id number] 11:23:00* Test Item Value Reference Range Interpretation [...] MORPHOLOGY (test code = PLTMORPH) CBC W/MANUAL [id number] 11:23:00* Test Item Value Reference Range Interpretation [...] MORPHOLOGY (test code = PLTMORPH) CBC W/MANUAL [id number] 11:23:00* Test Item Value Reference Range Interpretation [...] MORPHOLOGY (test code = PLTMORPH) CBC W/MANUAL [id number] 11:23:00* Test Item Value Reference Range Interpretation [...] PLTEST) PLATELET MORPHOLOGY (test code = PLTMORPH) [id number] 06:10:00* Test Item Value Reference Range Interpretation Comments GLUBED (test code = GLUBED) 265 mg/dL 74-106 H Performed by certified flexboard operator at [facility] BASIC METABOLIC [id number] 06:09:00* Test Item Value Reference Range Interpretation [...] CA) 8.3 mg/dL 8.5-10.1 L BASIC METABOLIC [id number] 06:05:00* Test Item Value Reference Range Interpretation [...] CALCIUM (test code = CA) mg/dL 8.5-10.1 [id number] 07:37:00* Test Item Value Reference Range Interpretation Comments GLUBED (test code = GLUBED) 363 mg/dL 74-106 H Performed by certified flexboard operator at [facility] BASIC METABOLIC [id number] 06:43:00* Test Item Value Reference Range Interpretation [...] CA) 8.5 mg/dL 8.5-10.1 N BASIC METABOLIC [id number] 06:25:00* Test Item Value Reference Range Interpretation [...] CALCIUM (test code = CA) mg/dL 8.5-10.1 [id number] 21:00:00* Test Item Value Reference Range Interpretation Comments GLUBED (test code = GLUBED) 361 mg/dL 74-106 H Performed by certified flexboard operator at [facility] [id number] 17:12:00* Test Item Value Reference Range Interpretation Comments GLUBED (test code = GLUBED) 376 mg/dL 74-106 H Performed by certified flexboard operator at [facility] - MRI LOW EXT W/O CONT [id number] 15:50:00 FAX: Buck Farr MD [phone] [place]: St: ADM Name: Jonathon NOBLEXOCHILT [facility] : [birth year] Age/S: 77/M [address] [facility] Unit #: [id number] Loc: V.[address] [place] [address] Phys: Buck Farr MD Acct: [id number] Dis Date: Status: ADM IN PHONE #: [phone] Exam Date: 09/28/2018 1508 FAX #: [phone] Reason: MRI B/L feet to r/o bone infection (heels) EXAMS: CPT CODE: [id number] MRI LOW EXT W/[place] [address] HISTORY: MRI B/L feet to r/o bone [...] Unremarkable MRI of the right foot. at 3180 Reported and signed by: Rasheed Fields M.D. CC: Buck Farr MD Technologist: Faheem Myers)(MR) Trnscrd Date/Time/By: 09/28/2018 (4084) : By: [email or web address] Orig Print D/T: S: 09/28/2018 (4691) PAGE 1 Signed Report - MRI LOW EXT W/O CONT [id number] 15:47:00 FAX: Buck Farr MD [phone] [place]: St: ADM Name: XOCHILT REYNAELICEO [facility] : [birth year] Age/S: 77/M [address] [facility] Unit #: [id number] Loc: V.[address] [place] [address] Phys: Buck Farr MD Acct: [id number] Dis Date: Status: ADM IN PHONE #: [phone] Exam Date: 09/28/2018 1503 FAX #: [phone] Reason: MRI B/L HEELS TO RULE OUT BONE INFECTION EXAMS: CPT CODE: [id number] MRI L[place] EXT W/[place] [address] HISTORY: MRI B/L HEELS TO RULE OUT BONE INFECTION TECHNIQUE: Multiplanar and multisequence MR images of the left ankle were acquired without IV contrast. FINDIN GS: Amputation of the left first toe [...] evaluation with contrast-enhanced study. * * at 0506 Reported and signed by: Rasheed Fields M.D. CC: Bcuk Farr MD Technologist: Faheem Albarado(Igor)(MR) Trnscrd Date/Time/By: 09/28/2018 (1547) : By: [email or web address] Orig Print D/T: S: 09/28/2018 (6865) PAGE 1 Signed Report CBC W/MANUAL [id number] 14:12:00 * Test Item Value Reference Range [...] IMMAT) 0 % 0-0 N BASIC METABOLIC [id number] 13:53:00* Test Item Value Reference Range Interpretation [...] CA) 8.6 mg/dL 8.5-10.1 N BASIC METABOLIC [id number] 13:46:00* Test Item Value Reference Range Interpretation [...] code = CA) mg/dL 8.5-10.1 CBC W/MANUAL [id number] 13:38:00* Test Item Value Reference Range Interpretation [...] MORPHOLOGY (test code = PLTMORPH) CBC W/MANUAL [id number] 13:36:00* Test Item Value Reference Range Interpretation [...] MORPHOLOGY (test code = PLTMORPH) CBC W/MANUAL [id number] 13:36:00* Test Item Value Reference Range Interpretation [...] MORPHOLOGY (test code = PLTMORPH) CBC W/MANUAL [id number] 13:36:00* Test Item Value Reference Range Interpretation [...] MORPHOLOGY (test code = PLTMORPH) CBC W/MANUAL [id number] 13:36:00* Test Item Value Reference Range Interpretation [...] PLTEST) PLATELET MORPHOLOGY (test code = PLTMORPH) [id number] 12:50:00* Test Item Value Reference Range Interpretation Comments GLUBED (test code = GLUBED) 252 mg/dL 74-106 H Performed by certified flexboard operator at [facility] [id number] 05:17:00* Test Item Value Reference Range Interpretation Comments GLUBED (test code = GLUBED) 324 mg/dL 74-106 H Performed by certified flexboard operator at [facility] SED [id number] 22:05:00* Test Item Value Reference Range Interpretation Comments SED RATE (test code = SEDW) 94 mm/hr 0-15 H WINTROBE METHOD: NORMAL RANGE FOR MEN: 0-9 MM/HR WOMAN: 0-20 MM/HR SED RATE [id number] 22:04:00* Test Item Value Reference Range Interpretation Comments SED RATE WESTERGREN (test code = SEDW) 94 mm/hr 0-15 H C REACTIVE [id number] 18:17:00* Test Item Value Reference Range Interpretation Comments C REACTIVE PROTEIN (test code = CRP) 14.50 mg/dL 0-0.3 H [id number] 13:35:00* Test Item Value Reference Range Interpretation [...] LDL result is a direct measurement.========= ADD [id number] 12:08:00* Test Item Value Reference Range Interpretation Comments GLUBED (test code = GLUBED) 329 mg/dL 74-106 H Performed by certified flexboard operator at [facility] [id number] 09:41:00* Test Item Value Reference Range Interpretation Comments GLUBED (test code = GLUBED) 184 mg/dL 74-106 H Performed by certified flexboard operator at [facility] [id number] 03:29:00* Test Item Value Reference Range Interpretation Comments TROPONIN-I (test code = TROPI) 0.046 ng/mL 0-0.045 H COMMENTS TO [employer] ASSIST[employer]: COLLECT 3 HOURS AFTER PREVIOUS SAMPLECOMPREHENSIVE METABOLIC [id number] 03:21:00* Test Item Value Reference Range Interpretation [...] due to change in reagent. COMPREHENSIVE METABOLIC [id number] 03:15:00* Test Item Value Reference Range Interpretation [...] TOTAL (test code = ALKP) IUnit/L 45-117 [id number] 23:38:00* Test Item Value Reference Range Interpretation Comments TROPONIN-I (test code = TROPI) 0.056 ng/mL 0-0.045 HH Results called to CARRIE ETIENNE by LUIS M.AG1 09/26/18 2337Critical results verified and read back by Nurse? Y COMMENTS TO [employer]OTIONS ASSISTANT [employer] MARKET[employer]: COLLECT 3 HOURS AFTER PREVIOUS SAMPLELACTIC [id number] 21:04:00* Test Item Value Reference Range Interpretation Comments LACTIC ACID (test code = LACT) 0.9 mmol/L 0.4-1.9 N 09/26/18 1730- CT ABD PELVIS W/O [id number] 18:49:00 Name: XOCHILT EPSTEIN [facility] : 1940 Age/S: 77 / M [address] [facility] Unit #: [id number] Loc: [place], [place] [address] Phys: Carolyn Alegria MD Acct: [id number] Dis Date: Status: ADM IN PHONE #: [phone] Exam Date: 09/26/2018 1839 FAX #: [phone] Reason: ABD PAIN, ELEVATED WBC COUNT, TTP LOWER ABD EXAMS: CPT CODE: [id number] CT ABD PELVIS W/O CONT 92022 REASON FOR EXAM: ABD PAIN, ELEVATED WBC COUNT, TTP LOWER ABD EXAM ORDER DATE: 09/26/2018 6:22 PM Ordering M.D.: Carolyn Alegria MD PROCEDURE: - CT ABD [...] RT(R) CT CTDI: DLP: Trnscb Date/Time: 09/26/2018 (1848) t.[email or web address] Orig Print D/T: S: 09/26/2018 (409) PAGE 1 Signed Report URINALYSIS [id number] 17:58:00* Test Item Value Reference Range Interpretation [...] HPF NONE A Urine Source? Clean CatchURINALYSIS [id number] 17:48:00* Test Item Value Reference Range Interpretation [...] HPF NONE Urine Source? Clean CatchCBC W/MANUAL [id number] 17:15:00* Test Item Value Reference Range Interpretation [...] IMMAT) 0 % 0-0 N CBC W/MANUAL [id number] 17:03:00* Test Item Value Reference Range Interpretation [...] into account the patients history. BASIC METABOLIC [id number] 16:06:00* Test Item Value Reference Range Interpretation [...] CA) 8.7 mg/dL 8.5-10.1 N HEPATIC FUNCTION [id number] 16:06:00* Test Item Value Reference Range Interpretation [...] reference range due to change in reagent. [id number] 16:06:00* Test Item Value Reference Range Interpretation Comments LIPASE (test code = LIP) 241 U/L 73.0-393.0 N [id number] 16:06:00* Test Item Value Reference Range Interpretation Comments TROPONIN-I (test code = TROPI) 0.025 ng/mL 0-0.045 N BASIC METABOLIC [id number] 15:55:00* Test Item Value Reference Range Interpretation [...] code = CA) mg/dL 8.5-10.1 HEPATIC FUNCTION [id number] 15:55:00* Test Item Value Reference Range Interpretation [...] TOTAL (test code = ALKP) IUnit/L 45-117 [id number] 15:55:00* Test Item Value Reference Range Interpretation Comments LIPASE (test code = LIP) U/L 73.0-393.0 [id number] 15:55:00* Test Item Value Reference Range Interpretation Comments TROPONIN-I (test code = TROPI) ng/mL 0-0.045 LACTIC [id number] 15:54:00* Test Item Value Reference Range Interpretation Comments LACTIC ACID (test code = LACT) 3.6 mmol/L 0.4-1.9 HH Results called to [id number] by VMIKAELALT 09/26/18 1554Critical results verified and read back by Nurse? Y - XR CHEST 1 [id number] 15:49:00 FAX: Carolyn Maya [phone] [place]: St: REG Name: XOCHILT REYNA [facility] : [birth year] Age/S: 77/M [address] [facility] Unit #: [id number] Loc: [place] [address] Phys: Carolyn Alegria MD Acct: [id number] Dis Date: Status: REG ER PHONE #: [phone] Exam Date: 09/26/2018 1546 FAX #: [phone] Reason: CODE SEPSIS EXAMS: CPT CODE: [id number] XR CHEST 1 V 52851 REASON FOR EXAM: CODE SEPSIS EXAM ORDER DATE: 09/26/2018 3:14 PM Ordering David: Carolyn Alegria MD PROCEDURE: - XR CHEST 1 V CO MPARISON: 07/31/2018 FINDINGS: Portable AP frontal view of the [facility] obtained at 3:39 PM shows clear lungs without evidence of consolidation . There is no evidence of effusion. The heart size is within normal limits . Pulmonary vasculatures are unremarkable 2. Stable appearance of t he left IJ dialysis catheter and right IJ long-term central line. IMPRESSION: No active disease. at 6264 Reported and signed by: Earle Alvarado M.D. CC: Carolyn Alegria MD Technologist: MAXIME DISLA RT (R) Trnscrd Date/Time/By: 09/26/2018 (3138) : By: Kelly Orig Print D/T: S: 09/26/2018 (7867) PAGE 1 Signed Report PROTHROMBIN [id number] 15:45:00 * Test Item Value Reference Range [...] (2.5-3.5) IS PATIENT ON ANTICOAGULANTS? NTHROMBOPLASTIN TIME [id number] 15:45:00* Test Item Value Reference Range Interpretation Comments THROMBOPLASTIN TIME PARTIAL (test code = PTT) 30.6 seconds 25.0-36. 5 N IS PATIENT ON ANTICOAGULANTS? NCBC W/MANUAL [id number] 15:32:00* Test Item Value Reference Range Interpretation [...] MORPHOLOGY (test code = PLTMORPH) CBC W/MANUAL [id number] 15:30:00* Test Item Value Reference Range Interpretation [...] MORPHOLOGY (test code = PLTMORPH) CBC W/MANUAL [id number] 15:30:00* Test Item Value Reference Range Interpretation [...] MORPHOLOGY (test code = PLTMORPH) CBC W/MANUAL [id number] 15:29:00* Test Item Value Reference Range Interpretation [...] MORPHOLOGY (test code = PLTMORPH) CBC W/MANUAL [id number] 15:29:00* Test Item Value Reference Range Interpretation [...] PLTMORPH) - SP FLUORO GUID CTRL ACC [id number] 14:56:00 Name: XOCHILT EPSTEIN [facility] : 1940 Age/S: 77 / M [address] Unit #: [id number] Loc: [place] [address] Phys: Guille Liao MD Acct: [id number] Dis Date: [id number] Status: DIS IN PHONE #: [phone] Exam Date: 07/29/2018 0943 FAX #: [phone] Reason: EXAMS: CPT CODE: [id number] SP FLUORO GUID CTRL ACC DEV 86334 Fluoro Time: 6 DAP (Gy m2): 1041 Air Kerma (mGy): 2.10 EXAM: Insertion of a tunneled hemodialysis catheter with fluoroscopic guidance and conscious sedation; INFORMATION: End-stage renal disease; TECHNIQUE AND FINDINGS: Conscious sedation start time: 0930 hours; Completion time: 09 hours; Under physician supervision 1 mg of Versed and 25 mcg of fentanyl were administered intravenously for conscious sedation; the patient's heart rate, blood pressure and pulse oximetry were continuously monitored by a trained registered nurse. Physician [id number]-wt-[id number] sedation time was 13 minutes. After obtaining [...] was then replaced with a 1 5 Filipino peel-away sheath. A subcutaneous tunnel was created [...] DAP : 1041 mGy sq cm at 1456 Reported and signed by: Guille Liao M.D. PAGE 1 Signed Report (CONTINUED) Name: XOCHILT EPSTEIN [facility] : 1940 Age/S: 77 / M [address] [facility] Unit #: [id number] Loc: [place] [address] Phys: Guille Liao MD Acct: [id number] Dis Date: [id number] Status: DIS IN PHONE #: [phone] Exam Date: 07/29/2018 0943 FAX #: [phone] Reason: EXAMS: CPT CODE: [id number] SP FLUORO GUID CTRL ACC DEV 43666 Fluoro T susan: 6 DAP (Gy m2): 1041 Air Kerma (mGy): 2.10 <Continued> CC: Silvia Contreras MD Technologist: Ernie Martinez [facility] Date/Time: 08/14/2018 (3801) FernandoGRW Orig Print D/T: S: 08/14/2018 (0455) PAGE 2 Signed Report [id number] 12:30:00* Test Item Value Reference Range Interpretation Comments GLUBED (test code = GLUBED) 150 mg/dL 74-106 H Performed by certified flexboard operator at [facility] [id number] 12:30:00* Test Item Value Reference Range Interpretation Comments GLUBED (test code = GLUBED) 153 mg/dL 74-106 H Performed by certified flexboard operator at [facility] [id number] 12:29:00* Test Item Value Reference Range Interpretation Comments GLUBED (test code = GLUBED) 342 mg/dL 74-106 H Performed by certified flexboard operator at [facility] [id number] 12:29:00* Test Item Value Reference Range Interpretation Comments GLUBED (test code = GLUBED) 307 mg/dL 74-106 H Performed by certified flexboard operator at [facility] [id number] 12:29:00* Test Item Value Reference Range Interpretation Comments GLUBED (test code = GLUBED) 142 mg/dL 74-106 H Performed by certified flexboard operator at [facility] [id number] 14:41:00* Test Item Value Reference Range Interpretation Comments GLUBED (test code = GLUBED) 168 mg/dL 74-106 H Performed by certified flexboard operator at [facility] [id number] 14:41:00* Test Item Value Reference Range Interpretation Comments GLUBED (test code = GLUBED) 280 mg/dL 74-106 H Performed by certified flexboard operator at [facility] [id number] 14:40:00* Test Item Value Reference Range Interpretation Comments GLUBED (test code = GLUBED) 293 mg/dL 74-106 H Performed by certified flexboard operator at [facility] [id number] 14:40:00* Test Item Value Reference Range Interpretation Comments GLUBED (test code = GLUBED) 139 mg/dL 74-106 H Performed by certified flexboard operator at [facility] [id number] 14:40:00* Test Item Value Reference Range Interpretation Comments GLUBED (test code = GLUBED) 162 mg/dL 74-106 H Performed by certified flexboard operator at [facility] [id number] 14:39:00* Test Item Value Reference Range Interpretation Comments GLUBED (test code = GLUBED) 272 mg/dL 74-106 H Performed by certified flexboard operator at [facility] [id number] 14:39:00* Test Item Value Reference Range Interpretation Comments GLUBED (test code = GLUBED) 192 mg/dL 74-106 H Performed by certified flexboard operator at [facility] [id number] 14:39:00* Test Item Value Reference Range Interpretation Comments GLUBED (test code = GLUBED) 139 mg/dL 74-106 H Performed by certified flexboard operator at [facility] [id number] 14:38:00* Test Item Value Reference Range Interpretation Comments GLUBED (test code = GLUBED) 167 mg/dL 74-106 H Performed by certified flexboard operator at [facility] [id number] 14:37:00* Test Item Value Reference Range Interpretation Comments GLUBED (test code = GLUBED) 189 mg/dL 74-106 H Performed by certified flexboard operator at [facility] [id number] 14:37:00* Test Item Value Reference Range Interpretation Comments GLUBED (test code = GLUBED) 273 mg/dL 74-106 H Performed by certified flexboard operator at [facility] [id number] 14:37:00* Test Item Value Reference Range Interpretation Comments GLUBED (test code = GLUBED) 187 mg/dL 74-106 H Performed by certified flexboard operator at [facility] [id number] 14:36:00* Test Item Value Reference Range Interpretation Comments GLUBED (test code = GLUBED) 131 mg/dL 74-106 H Performed by certified flexboard operator at [facility] [id number] 14:36:00* Test Item Value Reference Range Interpretation Comments GLUBED (test code = GLUBED) 141 mg/dL 74-106 H Performed by certified flexboard operator at [facility] [id number] 14:36:00* Test Item Value Reference Range Interpretation Comments GLUBED (test code = GLUBED) 152 mg/dL 74-106 H Performed by certified flexboard operator at [facility] [id number] 14:36:00* Test Item Value Reference Range Interpretation Comments GLUBED (test code = GLUBED) 208 mg/dL 74-106 H Performed by certified flexboard operator at [facility] [id number] 14:35:00* Test Item Value Reference Range Interpretation Comments GLUBED (test code = GLUBED) 198 mg/dL 74-106 H Performed by certified flexboard operator at [facility] [id number] 14:35:00* Test Item Value Reference Range Interpretation Comments GLUBED (test code = GLUBED) 192 mg/dL 74-106 H Performed by certified flexboard operator at [facility] [id number] 10:38:00* Test Item Value Reference Range Interpretation Comments GLUBED (test code = GLUBED) 176 mg/dL 74-106 H Performed by certified flexboard operator at [facility] [id number] 10:36:00* Test Item Value Reference Range Interpretation Comments GLUBED (test code = GLUBED) 223 mg/dL 74-106 H Performed by certified flexboard operator at [facility] [id number] 10:35:00* Test Item Value Reference Range Interpretation Comments GLUBED (test code = GLUBED) 200 mg/dL 74-106 H Performed by certified flexboard operator at [facility] [id number] 10:35:00* Test Item Value Reference Range Interpretation Comments GLUBED (test code = GLUBED) 172 mg/dL 74-106 H Performed by certified flexboard operator at [facility] - US GUIDANCE [facility] [id number] 09:15:00 Name: XOCHILT EPSTEIN [facility] : 1940 Age/S: 77 / M [address] [facility] Unit #: [id number] Loc: ELIECER Kwan [address] Phys: Silvia Contreras MD Acct: [id number] Dis Date: [id number] Status: DIS IN PHONE #: [phone] Exam Date: 07/31/2018 1404 FAX #: [phone] Reason: EXAMS: CPT CODE: [id number] US GUIDANCE [facility] ACCESS 62477 Fluoro Time: 12 DAP (Gy m2): 693 Air Kerma (mGy): 4.92 EXAM: Insertion of a tunneled central line with sonographic and fluoroscopic guidance; CPT: 66789, 15293, 57119; INFORMATION: End-stage renal disease; infection of the [...] guidance, sequential dilatation was performed and a 7-Filipino peel-away sheath was then inserted over the wire. A subcutaneous tunnel was created in the usual sterile fashion and a 6 Filipino dual-lumen tunneled central line was inserted. The [...] C: Silvia Contreras MD Technologist: Ernie thompson Trniab Date/Time: 08/05/2018 (01 05) FernandoGRW Orig Print D/T: S: 08/05/2018 (917) JADON LEON 1 Signed Report - SP FLUORO GUID CTRL ACC [id number] 09:15:00 Name: XOCHILT EPSTEIN [facility] : 1940 Age/S: 77 / M [address] Unit #: [id number] Loc: ELIECER Kwan [address] Phys: Silvia Contreras MD Acct: [id number] Dis Date: [id number] Status: DIS IN PHONE #: [phone] Exam Date: 07/31/2018 1404 FAX #: [phone] Reason: EXAMS: CPT CODE: [id number] SP FLUORO GUID CTRL ACC DEV 49923 Fluoro Time: 12 DAP (Gy m2): 693 Air Kerma (mGy): 4.92 EXAM: Insertion of a tunneled central line with sonographic and fluoroscopic guidance; CPT: 90221, 91934, 17258; INFORMATION: End-stage renal disease; infection of the [...] guidance, sequential dilatation was performed and a 7-Filipino peel-away sheath was then inserted over the wire. A subcutaneous tunnel was created in the usual sterile fashion and a 6 Filipino dual-lumen tunneled central line was inserted. The [...] C: Silvia Contreras MD Technologist: Ernie thompson Trnscb Date/Time: 08/05/2018 (01 05) Ty Orig Print D/T: S: 08/05/2018 (917) JADON LEON 1 Signed Report BASIC METABOLIC [id number] 05:46:00* Test Item Value Reference Range Interpretation [...] CA) 8.6 mg/dL 8.5-10.1 N BASIC METABOLIC [id number] 05:41:00* Test Item Value Reference Range Interpretation [...] code = CA) mg/dL 8.5-10.1 CBC W/O [id number] 05:08:00* Test Item Value Reference Range Interpretation [...] code = MPV) 9.4 fL 6.7-11.0 N [id number] 05:36:00* Test Item Value Reference Range Interpretation Comments GLUBED (test code = GLUBED) 119 mg/dL 74-106 H Performed by certified flexboard operator at [facility] [id number] 05:35:00* Test Item Value Reference Range Interpretation Comments GLUBED (test code = GLUBED) 136 mg/dL 74-106 H Performed by certified flexboard operator at [facility] BASIC METABOLIC [id number] 04:58:00* Test Item Value Reference Range Interpretation [...] CA) 8.2 mg/dL 8.5-10.1 L BASIC METABOLIC [id number] 04:32:00* Test Item Value Reference Range Interpretation [...] CA) 8.2 mg/dL 8.5-10.1 L BASIC METABOLIC [id number] 04:30:00* Test Item Value Reference Range Interpretation [...] CA) mg/dL 8.5-10.1 - XR CHEST 1 [id number] 14:23:00 FAX: Silvia Payan MD [phone] [place]: B St: ADM Name: XOCHILT REYNA [facility] : [birth year] Age/S: 77/M [address] Unit #: [id number] Loc: V.2045 ELIECER Kwan [address] Phys: Guille Liao MD Acct: [id number] Dis Date: Status: ADM IN PHONE #: [phone] Exam Date: 07/31/2018 1412 FAX #: [phone] Reason: DM; L foot gangrene; st.p. central line; EXAMS: CPT CODE: [id number] XR CHEST 1 V 96078 REASON FOR EXAM: DM; L foot gangrene; [...] with the tip in the SVC at 1421 Reported and signed by: Earle Alvarado M.D. CC: Silvia Contreras MD Technologist: Tonja Albarado(Igor) Trnscrd Date/Time/By: 2018 (0010) : By: BritneyL Orig Print D/T: S: 07/31/2018 (3605) PAGE 1 Signed Report FINGER/TOES AMP.,[id number] 11:09:00 RUN DATE: 07/31/18 [facility] PAGE 1 RUN TIME: 1109 Specimen Inqui ry RUN USER: INTERFACE PATIENT: XOCHILT EPSTEIN ACCT #: [id number] LOC: LOUANN U #: [id number] AGE/SX: 77/M ROOM: [facility] RE06/22/18REG DR: Silvia Contreras MD : 40 BED: B DIS: STATUS: ADM IN TLOC: SPEC #: [id number] RECD: 07/22/18 STATUS: MARLO REKaylan #: [id number] BERNARD: 07/19/18- SUBM DR: Lady Abraham PM ENTERED: 07/22/18 SP TYPE: FINGER/TOE OTHR DR: Hernando Encarnacion MD, Tsegaw MD Fahnbulleh MD,Lady Mehta DPM, David N MD Q ureshi,Jaqueline Luke,Reg HICKS [facility],Carrie murphy,Kwaku JohnsonORDERED: GROSS COPIES TO: Hernando Canales MD [address] [place] [address] Anabel Arambula MD [address] [place] [address] Albaro HICKS,Akira Bernarda [address] [place], [place] [id number] Lady Abraham DPM [address] [place] [address] Carrie Harper MD [address] [place], [place] [address] Jaqueline Gee MD [address] [facility] [address] [place] [address] CONTINUED ON NEXT PAGE RUN DATE: 07/31/18 [facility] PAGE 2 RUN TIME: 1109 Specimen Inquiry RUN USER: INTERFACE SPEC #: [id number] PATIENT: XOCHILT EPSTEIN #[id number] ([facility]) COPIES TO: (Continued) Reg Luke MD [address] [place], [place] [id number] Carrie Ballard MD [address] [place], [place] [id number] Kwaku Clement [address] [place] [address] PROCEDURES: GROSS (07/26/18-0) TISSUE S: 1. GREAT TOE, NOS - [...] CONTINUED ON NEXT PAGE -RUN DATE: 07/31/18 [place] - Lab PAGE 3 RUN TIME: 1109 Specimen Inquiry RUN USER: INTERFACE SPEC #: [id number] PATIENT: XOCHILT EPSTEIN #[id number] (Continued) FINAL DIAGNOSIS (Continued) D [phone], [phone] MACROSCOPIC The first specime n is received [...] 3.3 x 1.4 cm and has some towel distributor d fibrous tissue. After samples of the soft tissue are submitted for microsco pic evaluation the specimen is placed in decalcification. Section code: 1A , portions of soft tissue; 2B, sample of the bone tissue. GROSS PERFORMED AT [facility] [address] [place] [phone] MICROSCOPIC All of the stains, including any controls performed, stain appropriately. MICR OSCOPIC PERFORMED AT [facility] [address] [place] [address] [phone])[phone] CONTINUED ON NEXT PAGE RUN DATE: 07/31/18 [place] - [facility] PAGE 4 RUN TIME: 1109 Specimen Inquiry RUN USER: INTERFACE SPEC #: [id number] PATIENT: LUCIANXOCHILT #[id number] (Tonia nued) PERFORMING SITE Diagnosis performed at: [facility] [address] [facility], [place] [id number] Signed SIGNATURE ON FILE Doroteo Blake MD 07/31/18 1109 END OF REPORT BASIC METABOLIC [id number] 05:46:00* Test Item Value Reference Range Interpretation [...] CA) 8.4 mg/dL 8.5-10.1 L BASIC METABOLIC [id number] 05:34:00* Test Item Value Reference Range Interpretation [...] code = CA) mg/dL 8.5-10.1 CBC W/AUTO [id number] 05:44:00* Test Item Value Reference Range Interpretation [...] = MDIFF) NO, ONLY SCAN NEEDED DIFFERENTIAL [id number] 05:44:00* Test Item Value Reference Range Interpretation Comments STAIN ACCEPTABILITY (test code = STN ACCEPTABLE) STAIN ACCEPTABLE POLYCHROMASIA (test code = POLC) 1+ PLATELET ESTIMATE (test code = PLTEST) ADEQUATE PLATELET MORPHOLOGY (test code = PLTMORPH) SIZE VARIABLE BASIC METABOLIC [id number] 05:43:00* Test Item Value Reference Range Interpretation [...] CA) 8.4 mg/dL 8.5-10.1 L BASIC METABOLIC [id number] 05:30:00* Test Item Value Reference Range Interpretation [...] code = CA) mg/dL 8.5-10.1 CBC W/AUTO [id number] 05:07:00* Test Item Value Reference Range Interpretation [...] = MDIFF) NO, ONLY SCAN NEEDED DIFFERENTIAL [id number] 05:07:00* Test Item Value Reference Range Interpretation Comments STAIN ACCEPTABILITY (test code = STN ACCEPTABLE) CABOT RINGS (test code = CAB) MORPHOLOGY COMMENT (test code = MOC) PLATELET ESTIMATE (test code = PLTEST) PLATELET MORPHOLOGY (test code = PLTMORPH) CBC W/AUTO [id number] 05:07:00* Test Item Value Reference Range Interpretation [...] = MDIFF) NO, ONLY SCAN NEEDED DIFFERENTIAL [id number] 05:07:00* Test Item Value Reference Range Interpretation Comments STAIN ACCEPTABILITY (test code = STN ACCEPTABLE) MORPHOLOGY COMMENT (test code = MOC) PLATELET ESTIMATE (test code = PLTEST) PLATELET MORPHOLOGY (test code = PLTMORPH) CBC W/AUTO [id number] 05:06:00* Test Item Value Reference Range Interpretation [...] = MDIFF) NO, ONLY SCAN NEEDED DIFFERENTIAL [id number] 05:06:00* Test Item Value Reference Range Interpretation Comments STAIN ACCEPTABILITY (test code = STN ACCEPTABLE) CABOT RINGS (test code = CAB) MORPHOLOGY COMMENT (test code = MOC) PLATELET ESTIMATE (test code = PLTEST) PLATELET MORPHOLOGY (test code = PLTMORPH) CBC W/AUTO [id number] 05:06:00* Test Item Value Reference Range Interpretation [...] = MDIFF) NO, ONLY SCAN NEEDED DIFFERENTIAL [id number] 05:06:00* Test Item Value Reference Range Interpretation Comments STAIN ACCEPTABILITY (test code = STN ACCEPTABLE) CABOT RINGS (test code = CAB) MORPHOLOGY COMMENT (test code = MOC) PLATELET ESTIMATE (test code = PLTEST) PLATELET MORPHOLOGY (test code = PLTMORPH) [id number] 21:08:00* Test Item Value Reference Range Interpretation Comments GLUBED (test code = GLUBED) 279 mg/dL 74-106 H Performed by certified flexboard operator at [facility] [id number] 16:53:00* Test Item Value Reference Range Interpretation Comments GLUBED (test code = GLUBED) 161 mg/dL 74-106 H Performed by certified flexboard operator at [facility] - XR CHEST 1 [id number] 10:30:00 FAX: Silvia Payan MD [phone] [place]: B St: ADM Name: XOCHILT REYNA [facility] : [birth year] Age/S: 77/M [address] Unit #: [id number] Loc: V.2080 ELIECER Kwan [address] Phys: Guille Liao MD Acct: [id number] Dis Date: Status: ADM IN PHONE #: [phone] Exam Date: 07/29/2018 1023 FAX #: [phone] Reason: ESRD; st.p. PC; EXAMS: CPT CODE: [id number] XR CHEST 1 V 85392 HISTORY: ESRD and catheter placement. COMPARISON: July [...] CC: Silvia Contreras MD Technologist: Tonja Albarado(Igor) Trnscrd Date/Time/By: 9 (1030) : By: [email or web address] Orig Print D/T: S: 07/29/2018 (8167) PAGE 1 Signed Report CBC W/AUTO [id number] 05:55:00* Test Item Value Reference Range Interpretation [...] = MDIFF) NO, ONLY SCAN NEEDED DIFFERENTIAL [id number] 05:55:00* Test Item Value Reference Range Interpretation Comments STAIN ACCEPTABILITY (test code = STN ACCEPTABLE) STAIN ACCEPTABLE POIKILOCYTOSIS (test code = POIK) 1+ PLATELET ESTIMATE (test code = PLTEST) ADEQUATE PLATELET MORPHOLOGY (test code = PLTMORPH) SIZE VARIABLE BASIC METABOLIC [id number] 05:48:00* Test Item Value Reference Range Interpretation [...] code = CA) 8.2 mg/dL 8.5-10.1 L [id number] 05:40:00* Test Item Value Reference Range Interpretation Comments GLUBED (test code = GLUBED) 210 mg/dL 74-106 H Performed by certified flexboard operator at [facility] CBC W/AUTO [id number] 05:16:00* Test Item Value Reference Range Interpretation [...] = MDIFF) NO, ONLY SCAN NEEDED DIFFERENTIAL [id number] 05:16:00* Test Item Value Reference Range Interpretation Comments STAIN ACCEPTABILITY (test code = STN ACCEPTABLE) CABOT RINGS (test code = CAB) MORPHOLOGY COMMENT (test code = MOC) PLATELET ESTIMATE (test code = PLTEST) PLATELET MORPHOLOGY (test code = PLTMORPH) CBC W/AUTO [id number] 05:16:00* Test Item Value Reference Range Interpretation [...] = MDIFF) NO, ONLY SCAN NEEDED DIFFERENTIAL [id number] 05:16:00* Test Item Value Reference Range Interpretation Comments STAIN ACCEPTABILITY (test code = STN ACCEPTABLE) CABOT RINGS (test code = CAB) MORPHOLOGY COMMENT (test code = MOC) PLATELET ESTIMATE (test code = PLTEST) PLATELET MORPHOLOGY (test code = PLTMORPH) CBC W/AUTO [id number] 05:16:00* Test Item Value Reference Range Interpretation [...] = MDIFF) NO, ONLY SCAN NEEDED DIFFERENTIAL [id number] 05:16:00* Test Item Value Reference Range Interpretation Comments STAIN ACCEPTABILITY (test code = STN ACCEPTABLE) MORPHOLOGY COMMENT (test code = MOC) PLATELET ESTIMATE (test code = PLTEST) PLATELET MORPHOLOGY (test code = PLTMORPH) CBC W/AUTO [id number] 05:16:00* Test Item Value Reference Range Interpretation [...] = MDIFF) NO, ONLY SCAN NEEDED DIFFERENTIAL [id number] 05:16:00* Test Item Value Reference Range Interpretation Comments STAIN ACCEPTABILITY (test code = STN ACCEPTABLE) CABOT RINGS (test code = CAB) MORPHOLOGY COMMENT (test code = MOC) PLATELET ESTIMATE (test code = PLTEST) PLATELET MORPHOLOGY (test code = PLTMORPH) [id number] 20:18:00* Test Item Value Reference Range Interpretation Comments GLUBED (test code = GLUBED) 214 mg/dL 74-106 H Performed by certified flexboard operator at [facility] [id number] 15:46:00* Test Item Value Reference Range Interpretation Comments GLUBED (test code = GLUBED) 141 mg/dL 74-106 H Performed by certified flexboard operator at [facility] [id number] 10:43:00* Test Item Value Reference Range Interpretation Comments GLUBED (test code = GLUBED) 107 mg/dL 74-106 H Performed by certified flexboard operator at [facility] BASIC METABOLIC [id number] 07:15:00* Test Item Value Reference Range Interpretation [...] CA) 8.0 mg/dL 8.5-10.1 L CBC W/AUTO [id number] 07:07:00* Test Item Value Reference Range Interpretation [...] (test code = MDIFF) NO BASIC METABOLIC [id number] 07:03:00* Test Item Value Reference Range Interpretation [...] (test code = CA) mg/dL 8.5-10.1 PROTHROMBIN [id number] 06:54:00* Test Item Value Reference Range Interpretation [...] PATIENT ON ANTICOAGULANTS? YLIST ANTICOAGULANTS ASPIRINTHROMBOPLASTIN TIME [id number] 06:54:00* Test Item Value Reference Range Interpretation Comments THROMBOPLASTIN TIME PARTIAL (test code = PTT) 31.3 seconds 25.0-36. 5 N IS PATIENT ON ANTICOAGULANTS? YLIST ANTICOAGULANTS [id number] 05:16:00* Test Item Value Reference Range Interpretation Comments GLUBED (test code = GLUBED) 141 mg/dL 74-106 H Performed by certified flexboard operator at [facility] [id number] 20:30:00* Test Item Value Reference Range Interpretation Comments GLUBED (test code = GLUBED) 266 mg/dL 74-106 H Performed by certified flexboard operator at [facility] [id number] 16:38:00* Test Item Value Reference Range Interpretation Comments GLUBED (test code = GLUBED) 225 mg/dL 74-106 H Performed by certified flexboard operator at [facility] [id number] 12:37:00* Test Item Value Reference Range Interpretation Comments GLUBED (test code = GLUBED) 193 mg/dL 74-106 H Performed by certified flexboard operator at [facility] [id number] 12:29:00* Test Item Value Reference Range Interpretation Comments GLUBED (test code = GLUBED) 266 mg/dL 74-106 H Performed by certified flexboard operator at [facility] CPK-MB [id number] 08:42:00* Test Item Value Reference Range Interpretation [...] with a normal total CK. BASIC METABOLIC [id number] 08:28:00* Test Item Value Reference Range Interpretation [...] CA) 8.1 mg/dL 8.5-10.1 L CBC W/AUTO [id number] 07:20:00* Test Item Value Reference Range Interpretation [...] (test code = MDIFF) NO BASIC METABOLIC [id number] 06:41:00* Test Item Value Reference Range Interpretation [...] CA) 8.3 mg/dL 8.5-10.1 L BASIC METABOLIC [id number] 06:26:00* Test Item Value Reference Range Interpretation [...] code = CA) mg/dL 8.5-10.1 CBC W/AUTO [id number] 06:15:00* Test Item Value Reference Range Interpretation [...] DIFF REQUIRED (test code = MDIFF) NO [id number] 04:58:00* Test Item Value Reference Range Interpretation Comments GLUBED (test code = GLUBED) 114 mg/dL 74-106 H Performed by certified flexboard operator at [facility] [id number] 20:46:00* Test Item Value Reference Range Interpretation Comments GLUBED (test code = GLUBED) 194 mg/dL 74-106 H Performed by certified flexboard operator at [facility] [id number] 18:42:00* Test Item Value Reference Range Interpretation Comments GLUBED (test code = GLUBED) 227 mg/dL 74-106 H Performed by certified flexboard operator at [facility] [id number] 17:13:00* Test Item Value Reference Range Interpretation Comments GLUBED (test code = GLUBED) 142 mg/dL 74-106 H Performed by certified flexboard operator at [facility] [id number] 12:56:00* Test Item Value Reference Range Interpretation Comments GLUBED (test code = GLUBED) 194 mg/dL 74-106 H Performed by certified flexboard operator at [facility] BASIC METABOLIC [id number] 07:09:00* Test Item Value Reference Range Interpretation [...] CA) 8.1 mg/dL 8.5-10.1 L BASIC METABOLIC [id number] 06:55:00* Test Item Value Reference Range Interpretation [...] code = CA) mg/dL 8.5-10.1 CBC W/AUTO [id number] 06:53:00* Test Item Value Reference Range Interpretation [...] DIFF REQUIRED (test code = MDIFF) NO [id number] 05:04:00* Test Item Value Reference Range Interpretation Comments GLUBED (test code = GLUBED) 150 mg/dL 74-106 H Performed by certified flexboard operator at [facility] [id number] 22:19:00* Test Item Value Reference Range Interpretation Comments GLUBED (test code = GLUBED) 120 mg/dL 74-106 H Performed by certified flexboard operator at [facility] [facility] [id number] 17:17:00* Test Item Value Reference Range Interpretation Comments GLUBED (test code = GLUBED) 268 mg/dL 74-106 H Performed by certified flexboard operator at [facility] CBC W/AUTO [id number] 07:45:00* Test Item Value Reference Range Interpretation [...] = MDIFF) NO, ONLY SCAN NEEDED DIFFERENTIAL [id number] 07:45:00* Test Item Value Reference Range Interpretation Comments STAIN ACCEPTABILITY (test code = STN ACCEPTABLE) STAIN ACCEPTABLE HYPOCHROMIA (test code = HYPO) 1+ ANISOCYTOSIS (test code = ANISO) 1+ PLATELET ESTIMATE (test code = PLTEST) ADEQUATE PLATELET MORPHOLOGY (test code = PLTMORPH) SIZE VARIABLE BASIC METABOLIC [id number] 06:19:00* Test Item Value Reference Range Interpretation [...] CA) 8.0 mg/dL 8.5-10.1 L BASIC METABOLIC [id number] 05:44:00* Test Item Value Reference Range Interpretation [...] code = CA) mg/dL 8.5-10.1 CBC W/AUTO [id number] 05:27:00* Test Item Value Reference Range Interpretation [...] = MDIFF) NO, ONLY SCAN NEEDED DIFFERENTIAL [id number] 05:27:00* Test Item Value Reference Range Interpretation Comments STAIN ACCEPTABILITY (test code = STN ACCEPTABLE) CABOT RINGS (test code = CAB) MORPHOLOGY COMMENT (test code = MOC) PLATELET ESTIMATE (test code = PLTEST) PLATELET MORPHOLOGY (test code = PLTMORPH) CBC W/AUTO [id number] 05:27:00* Test Item Value Reference Range Interpretation [...] = MDIFF) NO, ONLY SCAN NEEDED DIFFERENTIAL [id number] 05:27:00* Test Item Value Reference Range Interpretation Comments STAIN ACCEPTABILITY (test code = STN ACCEPTABLE) CABOT RINGS (test code = CAB) MORPHOLOGY COMMENT (test code = MOC) PLATELET ESTIMATE (test code = PLTEST) PLATELET MORPHOLOGY (test code = PLTMORPH) CBC W/AUTO [id number] 05:27:00* Test Item Value Reference Range Interpretation [...] = MDIFF) NO, ONLY SCAN NEEDED DIFFERENTIAL [id number] 05:27:00* Test Item Value Reference Range Interpretation Comments STAIN ACCEPTABILITY (test code = STN ACCEPTABLE) MORPHOLOGY COMMENT (test code = MOC) PLATELET ESTIMATE (test code = PLTEST) PLATELET MORPHOLOGY (test code = PLTMORPH) CBC W/AUTO [id number] 05:27:00* Test Item Value Reference Range Interpretation [...] = MDIFF) NO, ONLY SCAN NEEDED DIFFERENTIAL [id number] 05:27:00* Test Item Value Reference Range Interpretation Comments STAIN ACCEPTABILITY (test code = STN ACCEPTABLE) CABOT RINGS (test code = CAB) MORPHOLOGY COMMENT (test code = MOC) PLATELET ESTIMATE (test code = PLTEST) PLATELET MORPHOLOGY (test code = PLTMORPH) BASIC METABOLIC [id number] 10:38:00* Test Item Value Reference Range Interpretation [...] = CA) 8.3 mg/dL 8.5-10.1 L CPK-MB [id number] 05:35:00* Test Item Value Reference Range Interpretation [...] normal total CK. - XR CHEST 1 [id number] 14:30:00 FAX: Silvia Payan MD [phone] [place]: St: [facility] FAX: Alexia Hillman MD [phone] Name: XOCHILT EPSTEIN [facility] : 1940 Age/S: 77/M [address] [facility] Unit #: [id number] Loc: V.2074 [place] [address] Phys: Alexia Clinton MD Acct: [id number] Dis Date: Status: ADM IN PHONE #: [phone] Exam Date: 07/22/2018 1319 FAX #: [phone] Reason: pleural effusion EXAMS: CPT CODE: [id number] XR CHEST 1 V 60542 HISTORY: Pleural effusion. COMPARISON: July 17, 2018. Bilateral lines are unchanged. Small bilateral pleural effusions are unchanged. Dependent changes congestion is improved. Cardiomegaly. IMPRESSION: Improved congestion with small bibasal effusions and subsegmental atelectasis. at 1430 Reported and signed by: Atif David M.D. CC: Siliva Contreras MD; Alexia Clinton MD Technologist: Jamila saravia RT(R) Trnscrd Date/Time/By: 07/22/2018 ( 0127) : By: [email or web address] Orig Print D/T: S: 07/22/2018 (6657) PAGE 1 Signed Report CBC W/AUTO [id number] 08:02:00* Test Item Value Reference Range Interpretation [...] = MDIFF) NO, ONLY SCAN NEEDED DIFFERENTIAL [id number] 08:02:00* Test Item Value Reference Range Interpretation Comments STAIN ACCEPTABILITY (test code = STN ACCEPTABLE) STAIN ACCEPTABLE POLYCHROMASIA (test code = POLC) 1+ POIKILOCYTOSIS (test code = POIK) 1+ CRENATED CELLS (test code = CREN) 1+ ACANTHOCYTES (test code = ACAN) 1+ NONE PLATELET ESTIMATE (test code = PLTEST) DECREASED PLATELET MORPHOLOGY (test code = PLTMORPH) APPEAR LARGE BASIC METABOLIC [id number] 07:16:00* Test Item Value Reference Range Interpretation [...] CA) 8.1 mg/dL 8.5-10.1 L BASIC METABOLIC [id number] 07:13:00* Test Item Value Reference Range Interpretation [...] code = CA) mg/dL 8.5-10.1 CBC W/AUTO [id number] 06:54:00* Test Item Value Reference Range Interpretation [...] = MDIFF) NO, ONLY SCAN NEEDED DIFFERENTIAL [id number] 06:54:00* Test Item Value Reference Range Interpretation Comments STAIN ACCEPTABILITY (test code = STN ACCEPTABLE) CABOT RINGS (test code = CAB) MORPHOLOGY COMMENT (test code = MOC) PLATELET ESTIMATE (test code = PLTEST) PLATELET MORPHOLOGY (test code = PLTMORPH) CBC W/AUTO [id number] 06:54:00* Test Item Value Reference Range Interpretation [...] = MDIFF) NO, ONLY SCAN NEEDED DIFFERENTIAL [id number] 06:54:00* Test Item Value Reference Range Interpretation Comments STAIN ACCEPTABILITY (test code = STN ACCEPTABLE) CABOT RINGS (test code = CAB) MORPHOLOGY COMMENT (test code = MOC) PLATELET ESTIMATE (test code = PLTEST) PLATELET MORPHOLOGY (test code = PLTMORPH) CBC W/AUTO [id number] 06:54:00* Test Item Value Reference Range Interpretation [...] = MDIFF) NO, ONLY SCAN NEEDED DIFFERENTIAL [id number] 06:54:00* Test Item Value Reference Range Interpretation Comments STAIN ACCEPTABILITY (test code = STN ACCEPTABLE) MORPHOLOGY COMMENT (test code = MOC) PLATELET ESTIMATE (test code = PLTEST) PLATELET MORPHOLOGY (test code = PLTMORPH) CBC W/AUTO [id number] 06:54:00* Test Item Value Reference Range Interpretation [...] = MDIFF) NO, ONLY SCAN NEEDED DIFFERENTIAL [id number] 06:54:00* Test Item Value Reference Range Interpretation Comments STAIN ACCEPTABILITY (test code = STN ACCEPTABLE) CABOT RINGS (test code = CAB) MORPHOLOGY COMMENT (test code = MOC) PLATELET ESTIMATE (test code = PLTEST) PLATELET MORPHOLOGY (test code = PLTMORPH) CBC W/MANUAL [id number] 16:35:00* Test Item Value Reference Range Interpretation [...] code = IMMAT) 0 % CBC W/MANUAL [id number] 15:37:00* Test Item Value Reference Range Interpretation [...] PLTEST) PLATELET MORPHOLOGY (test code = PLTMORPH) [id number] 06:59:00* Test Item Value Reference Range Interpretation Comments GLUBED (test code = GLUBED) 238 mg/dL 74-106 H Performed by certified flexboard operator at [facility] [id number] 20:45:00* Test Item Value Reference Range Interpretation Comments GLUBED (test code = GLUBED) 175 mg/dL 74-106 H Performed by certified flexboard operator at [facility] [id number] 18:02:00* Test Item Value Reference Range Interpretation Comments GLUBED (test code = GLUBED) 204 mg/dL 74-106 H Performed by certified flexboard operator at [facility] [id number] 13:09:00* Test Item Value Reference Range Interpretation Comments GLUBED (test code = GLUBED) 148 mg/dL 74-106 H Performed by certified flexboard operator at [facility] BASIC METABOLIC [id number] 05:44:00* Test Item Value Reference Range Interpretation [...] code = CA) 8.0 mg/dL 8.5-10.1 L [id number] 05:12:00* Test Item Value Reference Range Interpretation Comments GLUBED (test code = GLUBED) 181 mg/dL 74-106 H Performed by certified flexboard operator at [facility] BASIC METABOLIC [id number] 05:03:00* Test Item Value Reference Range Interpretation [...] CALCIUM (test code = CA) mg/dL 8.5-10.1 [id number] 21:02:00* Test Item Value Reference Range Interpretation Comments GLUBED (test code = GLUBED) 299 mg/dL 74-106 H Performed by certified flexboard operator at [facility] [id number] 16:55:00* Test Item Value Reference Range Interpretation Comments GLUBED (test code = GLUBED) 120 mg/dL 74-106 H Performed by certified flexboard operator at [facility] [id number] 14:27:00* Test Item Value Reference Range Interpretation Comments GLUBED (test code = GLUBED) 117 mg/dL 74-106 H Performed by certified flexboard operator at [facility] - MRI LOW EXT W/O CONT [id number] 12:18:00 FAX: Silvia Payan MD [phone] [place]: B St: ADM Name: Jonathon XOCHILT NOBLE [facility] : [birth year] Age/S: 77/M [address] [facility] Unit #: [id number] Loc: V.2074 [facility] [place] [address] Phys: Silvia Contreras MD Acct: [id number] Dis Date: Status: ADM IN PHONE #: [phone] Exam Date: 07/19/2018 0955 FAX #: [phone] Reason: WOUNDS EXAMS: CPT CODE: [id number] MRI LOW EXT W/[place] [address] HISTORY: Wound. COMP ARISON: None available. MRI [...] Araiza CC: Silvia Contreras MD Technologist: Faheem Albarado(Igor)(MR) Trnscrd Date/Time/By: 07/19/2018 (8900) : By: [email or web address] Orig Print D/T: S: 0 07/19/2018 (3424) PAGE 1 Signed Re port [id number] 11:55:00* Test Item Value Reference Range Interpretation Comments GLUBED (test code = GLUBED) 111 mg/dL 74-106 H Performed by certified flexboard operator at [facility] CBC W/AUTO [id number] 11:12:00* Test Item Value Reference Range Interpretation [...] = MDIFF) NO, ONLY SCAN NEEDED DIFFERENTIAL [id number] 11:12:00* Test Item Value Reference Range Interpretation Comments STAIN ACCEPTABILITY (test code = STN ACCEPTABLE) STAIN ACCEPTABLE ANISOCYTOSIS (test code = ANISO) 2+ MICROCYTOSIS (test code = MICR) 2+ PLATELET ESTIMATE (test code = PLTEST) ADEQUATE PLATELET MORPHOLOGY (test code = PLTMORPH) NORMAL - MRI LOW EXT W/O CONT [id number] 10:03:00 FAX: Silvia Payan MD [phone] [place]: St: ADM FAX: Lady Kilgore M [phone] Name: XOCHILT EPSTEIN [facility] : 1940 Age/S: 77/M [address] [facility] Unit #: [id number] Loc: V.2073 [place] [address] Phys: Lady Abraham Acct: [id number] Dis Date: Status: ADM IN PHONE #: [phone] Exam Date: 07/19/2018 0940 FAX #: [phone] Reason: WOUNDS EXAMS: CPT CODE: [id number] MRI L[place] EXT W/[place] [address] HISTORY: Wound. COMPARISON scan from June 26, [...] CA) 8.3 mg/dL 8.5-10.1 L BASIC METABOLIC [id number] 09:30:00* Test Item Value Reference Range Interpretation [...] CA) 8.3 mg/dL 8.5-10.1 L CBC W/AUTO [id number] 09:28:00* Test Item Value Reference Range Interpretation [...] = MDIFF) NO, ONLY SCAN NEEDED DIFFERENTIAL [id number] 09:28:00* Test Item Value Reference Range Interpretation Comments STAIN ACCEPTABILITY (test code = STN ACCEPTABLE) CABOT RINGS (test code = CAB) MORPHOLOGY COMMENT (test code = MOC) PLATELET ESTIMATE (test code = PLTEST) PLATELET MORPHOLOGY (test code = PLTMORPH) CBC W/AUTO [id number] 09:28:00* Test Item Value Reference Range Interpretation [...] = MDIFF) NO, ONLY SCAN NEEDED DIFFERENTIAL [id number] 09:28:00* Test Item Value Reference Range Interpretation Comments STAIN ACCEPTABILITY (test code = STN ACCEPTABLE) CABOT RINGS (test code = CAB) MORPHOLOGY COMMENT (test code = MOC) PLATELET ESTIMATE (test code = PLTEST) PLATELET MORPHOLOGY (test code = PLTMORPH) CBC W/AUTO [id number] 09:28:00* Test Item Value Reference Range Interpretation [...] = MDIFF) NO, ONLY SCAN NEEDED DIFFERENTIAL [id number] 09:28:00* Test Item Value Reference Range Interpretation Comments STAIN ACCEPTABILITY (test code = STN ACCEPTABLE) MORPHOLOGY COMMENT (test code = MOC) PLATELET ESTIMATE (test code = PLTEST) PLATELET MORPHOLOGY (test code = PLTMORPH) CBC W/AUTO [id number] 09:28:00* Test Item Value Reference Range Interpretation [...] = MDIFF) NO, ONLY SCAN NEEDED DIFFERENTIAL [id number] 09:28:00* Test Item Value Reference Range Interpretation Comments STAIN ACCEPTABILITY (test code = STN ACCEPTABLE) CABOT RINGS (test code = CAB) MORPHOLOGY COMMENT (test code = MOC) PLATELET ESTIMATE (test code = PLTEST) PLATELET MORPHOLOGY (test code = PLTMORPH) [id number] 06:03:00* Test Item Value Reference Range Interpretation Comments GLUBED (test code = GLUBED) 107 mg/dL 74-106 H Performed by certified flexboard operator at [facility] [id number] 21:03:00* Test Item Value Reference Range Interpretation Comments GLUBED (test code = GLUBED) 142 mg/dL 74-106 H Performed by certified flexboard operator at [facility] [id number] 16:46:00* Test Item Value Reference Range Interpretation Comments GLUBED (test code = GLUBED) 131 mg/dL 74-106 H Performed by certified flexboard operator at [facility] [id number] 11:52:00* Test Item Value Reference Range Interpretation Comments GLUBED (test code = GLUBED) 151 mg/dL 74-106 H Performed by certified flexboard operator at [facility] HEPATITIS B CORE ANTIBODY,[id number] 08:17:00* Test Item Value Reference Range Interpretation Comments HEPATITIS B CORE ANTIBODY,TOT (test code = HBCAB) Negative Nega tive Performed At: [facility] [id number] Pascual Savage MD Ph:[phone] [id number] 06:22:00* Test Item Value Reference Range Interpretation Comments GLUBED (test code = GLUBED) 146 mg/dL 74-106 H Performed by certified flexboard operator at [facility] AB HEPATITIS B [id number] 06:17:00* Test Item Value Reference Range Interpretation Comments AB HEPATITIS B SURFACE (test code = HBSAB) Non Reactive () Non Reactive: Inconsistent with immunity, less than 10 mIU/mL Reactive: Consistent with immunity, greater than 9.9 mIU/mL HEPATITIS B CORE ANTIBODY,[id number] 06:17:00* Test Item Value Reference Range Interpretation Comments HEPATITIS B CORE ANTIBODY,IGM (test code = HBCMAB) NEG ATIVE AB HEPATITIS B [id number] 06:17:00* Test Item Value Reference Range Interpretation Comments AB HEPATITIS B SURFACE (test code = HBSAB) Non Reactive () Non Reactive: Inconsistent with immunity, less than 10 mIU/mL Reactive: Consistent with immunity, greater than 9.9 mIU/mL HEPATITIS B CORE ANTIBODY,[id number] 06:17:00* Test Item Value Reference Range Interpretation Comments HEPATITIS B CORE ANTIBODY,IGM (test code = HBCMAB) Negative Neg ative Performed At: [facility] [address] [id number] Pascual Savage MD Ph:[phone] BASIC METABOLIC [id number] 05:46:00* Test Item Value Reference Range Interpretation [...] CA) 8.4 mg/dL 8.5-10.1 L BASIC METABOLIC [id number] 05:28:00* Test Item Value Reference Range Interpretation [...] CALCIUM (test code = CA) mg/dL 8.5-10.1 [id number] 21:58:00* Test Item Value Reference Range Interpretation Comments GLUBED (test code = GLUBED) 188 mg/dL 74-106 H Performed by certified flexboard operator at [facility] FINGER/TOES AMP.,[id number] 15:18:00 RUN DATE: 07/17/18 [place] - Lab PAGE 1 RUN TIME: 1519 Specimen Inqui ry RUN USER: INTERFACE PATIENT: XOCHILT EPSTEIN ACCT #: Inés [id number] LOC: NETTA U #: [id number] AGE/SX: 77/M ROOM: [facility] RE06/22/18REG DR: Silvia Contreras MD : 40 BED: A DIS: STATUS: ADM IN TLOC: SPEC #: [id number] RECD: 07/08/18 STATUS: SOUBernarda REQ #: [id number] BERNARD: 07/05/18- SUBM DR: Shamir Thomson M ENTERED: 07/08/18 SP TYPE: FINGER/TOE OTHR DR: Hernando Encarnacion MD, MD,Lady Mehta DPM, Zaher MD Watkins, Herbert LeonardORDERED: GROSS COPIES TO: Hernando Canales MD [address] [place] [address] Shamir Thomson DPM [address] [place] [address] Albaro HICKS,Keshia Menchaca [address] [place] [address] Lady Abraham DPM [address] [address] Reg Luke MD [address] [place] [address] Kwaku Clement [address] [place] [address] PROCEDURES: GROSS (07/17/18-1442) TISSUES: TOE, NOS - 2nd DIGIT LEFT FOOT CONTINUED ON NEXT PAGE RUN DATE: 07/17/18 [facility] Lab PAGE 2 RUN TIME: 1519 Specimen Inquiry RUN USER: INTERFACE SPEC #: [id number] PATIENT: XOCHILT EPSTEINELICEO #[id number] (Continued) CLINICAL HISTORY COLLECTION DATE: 07/05/18 FINAL DIAGNOSIS Left foot, second digit amputation: GANGRENOUS TOE [facility]/ A [address], [address] MACROSCOPIC The specimen is received in formalin, [...] including the inked margin. GROSS PERFORMED AT [facility] [address] [place] [address] [phone] MICROSCOPIC All of the stains, including any contr ols performed, stain appropriately. MICROSCOPIC PERFORMED AT [facility] [address] [place] [address] [phone] CONTINUED ON NEXT PAGE RUN DATE: 07/17/18 [place] - [facility] PAGE 3 RUN TIME: 1519 Spec imen Inquiry RUN USER: INTERFACE SPEC #: [id number] PATIENT: XOCHILT TITUS #[id number] (Continued) PERF ORMING SITE Diagnosis performed at: [facility], JADON [address] [place] [address] ------ ------ Signed SIGNATURE ON FILE Sol Dozier MD 06/22 11/08 1518 END OF REPORT - XR CHEST 1 [id number] 09:35:00 FAX: Silvia Payan MD [phone] [place]: St: [facility] FAX: Alexia Hillman MD [phone] Name: XOCHILT EPSTEIN [facility] : 1940 Age/S: 77/M [address] [facility] Unit #: [id number] Loc: V.2074 [place] [address] Phys: Alexia Clinton MD Acct: [id number] Dis Date: Status: ADM IN PHONE #: [phone] Exam Date: 07/17/2018844 FAX #: [phone] Reason: sob EXAMS: CPT CODE: [id number] XR CHEST 1 V 20895 HISTORY: Shortness of breath. COMPARISON: July 12, 2018. Left and right ICD is unchanged. Mild congestion. Small bi basal effusions. Subsegmental atelectasis. Cardiomegaly. I MPRESSION: Mild congestion. Small bibasal effusions with subse gmental atelectasis is unchanged. at 0935 Reported and sign ed by: Atif David M.D. CC: Silvia Contreras MD; Alexia Monet MD Technologist: Tonja Albarado(R); Jamila CONLEY(R) Trnscrd Date/Time/By: 07/17/2018 (0920) : By: [email or web address] Orig Print D/T: S: 07/17/2018 (9323) PAGE 1 Signed Report BASIC METABOLIC [id number] 07:33:00* Test Item Value Reference Range Interpretation [...] CA) 8.0 mg/dL 8.5-10.1 L BASIC METABOLIC [id number] 07:25:00* Test Item Value Reference Range Interpretation [...] CALCIUM (test code = CA) mg/dL 8.5-10.1 [id number] 05:32:00* Test Item Value Reference Range Interpretation Comments GLUBED (test code = GLUBED) 156 mg/dL 74-106 H Performed by certified flexboard operator at [facility] [id number] 21:02:00* Test Item Value Reference Range Interpretation Comments GLUBED (test code = GLUBED) 181 mg/dL 74-106 H Performed by certified flexboard operator at [facility] [id number] 16:11:00* Test Item Value Reference Range Interpretation Comments GLUBED (test code = GLUBED) 161 mg/dL 74-106 H Performed by certified flexboard operator at [facility] [id number] 16:08:00* Test Item Value Reference Range Interpretation Comments GLUBED (test code = GLUBED) 160 mg/dL 74-106 H Performed by certified flexboard operator at [facility] [id number] 11:15:00* Test Item Value Reference Range Interpretation Comments GLUBED (test code = GLUBED) 172 mg/dL 74-106 H Performed by certified flexboard operator at [facility] BASIC METABOLIC [id number] 06:27:00* Test Item Value Reference Range Interpretation [...] CA) 8.1 mg/dL 8.5-10.1 L BASIC METABOLIC [id number] 06:14:00* Test Item Value Reference Range Interpretation [...] CALCIUM (test code = CA) mg/dL 8.5-10.1 [id number] 05:59:00* Test Item Value Reference Range Interpretation Comments GLUBED (test code = GLUBED) 151 mg/dL 74-106 H Performed by certified flexboard operator at [facility] CBC W/AUTO [id number] 05:52:00* Test Item Value Reference Range Interpretation [...] code = NRBC#) 0.00 K/mm3 0.0-0.1 N [id number] 21:27:00* Test Item Value Reference Range Interpretation Comments GLUBED (test code = GLUBED) 199 mg/dL 74-106 H Performed by certified flexboard operator at [facility] [id number] 17:13:00* Test Item Value Reference Range Interpretation Comments GLUBED (test code = GLUBED) 182 mg/dL 74-106 H Performed by certified flexboard operator at [facility] [id number] 17:04:00* Test Item Value Reference Range Interpretation Comments VANCOMYCIN (test code = VANCO) 17.6 UG/ML 5.0-45.0 N [id number] 12:36:00* Test Item Value Reference Range Interpretation Comments GLUBED (test code = GLUBED) 148 mg/dL 74-106 H Performed by certified flexboard operator at [facility] [id number] 11:21:00* Test Item Value Reference Range Interpretation Comments GLUBED (test code = GLUBED) 150 mg/dL 74-106 H Performed by certified flexboard operator at [facility] [id number] 06:23:00* Test Item Value Reference Range Interpretation Comments GLUBED (test code = GLUBED) 133 mg/dL 74-106 H Performed by certified flexboard operator at [facility] BASIC METABOLIC [id number] 05:12:00* Test Item Value Reference Range Interpretation [...] CA) 8.4 mg/dL 8.5-10.1 L CBC W/AUTO [id number] 05:07:00* Test Item Value Reference Range Interpretation [...] = MDIFF) NO, ONLY SCAN NEEDED DIFFERENTIAL [id number] 05:07:00* Test Item Value Reference Range Interpretation Comments STAIN ACCEPTABILITY (test code = STN ACCEPTABLE) STAIN ACCEPTABLE POIKILOCYTOSIS (test code = POIK) 1+ ANISOCYTOSIS (test code = ANISO) 1+ PLATELET ESTIMATE (test code = PLTEST) ADEQUATE PLATELET MORPHOLOGY (test code = PLTMORPH) NORMAL BASIC METABOLIC [id number] 04:49:00* Test Item Value Reference Range Interpretation [...] code = CA) mg/dL 8.5-10.1 CBC W/AUTO [id number] 04:44:00* Test Item Value Reference Range Interpretation [...] = MDIFF) NO, ONLY SCAN NEEDED DIFFERENTIAL [id number] 04:44:00* Test Item Value Reference Range Interpretation Comments STAIN ACCEPTABILITY (test code = STN ACCEPTABLE) CABOT RINGS (test code = CAB) MORPHOLOGY COMMENT (test code = MOC) PLATELET ESTIMATE (test code = PLTEST) PLATELET MORPHOLOGY (test code = PLTMORPH) CBC W/AUTO [id number] 04:44:00* Test Item Value Reference Range Interpretation [...] = MDIFF) NO, ONLY SCAN NEEDED DIFFERENTIAL [id number] 04:44:00* Test Item Value Reference Range Interpretation Comments STAIN ACCEPTABILITY (test code = STN ACCEPTABLE) CABOT RINGS (test code = CAB) MORPHOLOGY COMMENT (test code = MOC) PLATELET ESTIMATE (test code = PLTEST) PLATELET MORPHOLOGY (test code = PLTMORPH) CBC W/AUTO [id number] 04:44:00* Test Item Value Reference Range Interpretation [...] = MDIFF) NO, ONLY SCAN NEEDED DIFFERENTIAL [id number] 04:44:00* Test Item Value Reference Range Interpretation Comments STAIN ACCEPTABILITY (test code = STN ACCEPTABLE) MORPHOLOGY COMMENT (test code = MOC) PLATELET ESTIMATE (test code = PLTEST) PLATELET MORPHOLOGY (test code = PLTMORPH) CBC W/AUTO [id number] 04:44:00* Test Item Value Reference Range Interpretation [...] = MDIFF) NO, ONLY SCAN NEEDED DIFFERENTIAL [id number] 04:44:00* Test Item Value Reference Range Interpretation Comments STAIN ACCEPTABILITY (test code = STN ACCEPTABLE) CABOT RINGS (test code = CAB) MORPHOLOGY COMMENT (test code = MOC) PLATELET ESTIMATE (test code = PLTEST) PLATELET MORPHOLOGY (test code = PLTMORPH) [id number] 00:08:00* Test Item Value Reference Range Interpretation Comments GLUBED (test code = GLUBED) 139 mg/dL 74-106 H Performed by certified flexboard operator at [facility] [id number] 21:12:00* Test Item Value Reference Range Interpretation Comments GLUBED (test code = GLUBED) 138 mg/dL 74-106 H Performed by certified flexboard operator at [facility] [id number] 17:40:00* Test Item Value Reference Range Interpretation Comments GLUBED (test code = GLUBED) 133 mg/dL 74-106 H Performed by certified flexboard operator at [facility] BASIC METABOLIC [id number] 13:20:00* Test Item Value Reference Range Interpretation [...] CA) 8.2 mg/dL 8.5-10.1 L BASIC METABOLIC [id number] 13:17:00* Test Item Value Reference Range Interpretation [...] CALCIUM (test code = CA) mg/dL 8.5-10.1 [id number] 12:37:00* Test Item Value Reference Range Interpretation Comments GLUBED (test code = GLUBED) 127 mg/dL 74-106 H Performed by certified flexboard operator at [facility] [id number] 16:37:00* Test Item Value Reference Range Interpretation Comments GLUBED (test code = GLUBED) 218 mg/dL 74-106 H Performed by certified flexboard operator at [facility] ANTINUCLEAR ANTIBODIES [id number] 11:11:00* Test Item Value Reference Range Interpretation Comments ZEYAD SCREEN (test code = ANASCR) Negative Negative Performed At: [facility] [address] [id number] Savage MD Ph:[phone] COMPLEMENT [id number] 11:11:00* Test Item Value Reference Range Interpretation Comments COMPLEMENT C3 (test code = COMC3) 141 mg/dL 82-167 Performed At: [facility] [address] [id number] Savage MD Ph:[phone] COMPLEMENT [id number] 11:11:00* Test Item Value Reference Range Interpretation Comments COMPLEMENT C4 (test code = COMC4) 31 mg/dL 14-44 CBC W/AUTO [id number] 10:09:00* Test Item Value Reference Range Interpretation [...] = MDIFF) NO, ONLY SCAN NEEDED DIFFERENTIAL [id number] 10:09:00* Test Item Value Reference Range Interpretation Comments STAIN ACCEPTABILITY (test code = STN ACCEPTABLE) STAIN ACCEPTABLE POLYCHROMASIA (test code = POLC) 1+ HYPOCHROMIA (test code = HYPO) 1+ ANISOCYTOSIS (test code = ANISO) 1+ PLATELET ESTIMATE (test code = PLTEST) ADEQUATE PLATELET MORPHOLOGY (test code = PLTMORPH) NORMAL [id number] 09:31:00* Test Item Value Reference Range Interpretation Comments VANCOMYCIN (test code = VANCO) 25.0 UG/ML 5.0-45.0 N BASIC METABOLIC [id number] 09:20:00* Test Item Value Reference Range Interpretation [...] CA) 8.1 mg/dL 8.5-10.1 L BASIC METABOLIC [id number] 09:18:00* Test Item Value Reference Range Interpretation [...] code = CA) mg/dL 8.5-10.1 CBC W/AUTO [id number] 08:53:00* Test Item Value Reference Range Interpretation [...] = MDIFF) NO, ONLY SCAN NEEDED DIFFERENTIAL [id number] 08:53:00* Test Item Value Reference Range Interpretation Comments STAIN ACCEPTABILITY (test code = STN ACCEPTABLE) CABOT RINGS (test code = CAB) MORPHOLOGY COMMENT (test code = MOC) PLATELET ESTIMATE (test code = PLTEST) PLATELET MORPHOLOGY (test code = PLTMORPH) CBC W/AUTO [id number] 08:53:00* Test Item Value Reference Range Interpretation [...] = MDIFF) NO, ONLY SCAN NEEDED DIFFERENTIAL [id number] 08:53:00* Test Item Value Reference Range Interpretation Comments STAIN ACCEPTABILITY (test code = STN ACCEPTABLE) CABOT RINGS (test code = CAB) MORPHOLOGY COMMENT (test code = MOC) PLATELET ESTIMATE (test code = PLTEST) PLATELET MORPHOLOGY (test code = PLTMORPH) CBC W/AUTO [id number] 08:53:00* Test Item Value Reference Range Interpretation [...] = MDIFF) NO, ONLY SCAN NEEDED DIFFERENTIAL [id number] 08:53:00* Test Item Value Reference Range Interpretation Comments STAIN ACCEPTABILITY (test code = STN ACCEPTABLE) MORPHOLOGY COMMENT (test code = MOC) PLATELET ESTIMATE (test code = PLTEST) PLATELET MORPHOLOGY (test code = PLTMORPH) CBC W/AUTO [id number] 08:53:00* Test Item Value Reference Range Interpretation [...] = MDIFF) NO, ONLY SCAN NEEDED DIFFERENTIAL [id number] 08:53:00* Test Item Value Reference Range Interpretation Comments STAIN ACCEPTABILITY (test code = STN ACCEPTABLE) CABOT RINGS (test code = CAB) MORPHOLOGY COMMENT (test code = MOC) PLATELET ESTIMATE (test code = PLTEST) PLATELET MORPHOLOGY (test code = PLTMORPH) ANTINUCLEAR ANTIBODIES [id number] 08:15:00* Test Item Value Reference Range Interpretation Comments ZEYAD SCREEN (test code = ANASCR) COMPLEMENT [id number] 08:15:00* Test Item Value Reference Range Interpretation Comments COMPLEMENT C3 (test code = COMC3) mg/dL COMPLEMENT [id number] 08:15:00* Test Item Value Reference Range Interpretation Comments COMPLEMENT C4 (test code = COMC4) 31 mg/dL 14-44 ANTINUCLEAR ANTIBODIES [id number] 08:15:00* Test Item Value Reference Range Interpretation Comments ZEYAD SCREEN (test code = ANASCR) COMPLEMENT [id number] 08:15:00* Test Item Value Reference Range Interpretation Comments COMPLEMENT C3 (test code = COMC3) 141 mg/dL 82-167 Performed At: [facility] [address] [id number] Pascual Savage MD Ph:[phone] COMPLEMENT [id number] 08:15:00* Test Item Value Reference Range Interpretation Comments COMPLEMENT C4 (test code = COMC4) 31 mg/dL 14-44 - SP FLUORO GUID CTRL ACC [id number] 07:20:00 Name: XOCHILT EPSTEIN [facility] : 1940 Age/S: 77 / M [address] Unit #: [id number] Loc: [place] [address] Phys: Silvia Contreras MD Acct: [id number] Dis Date: Status: ADM IN PHONE #: [phone] Exam Date: 07/12/2018 1536 FAX #: [phone] Reason: EXAMS: CPT CODE: [id number] SP FLUORO GUID CTRL ACC DEV 69550 Fluoro Time: 6 DAP (Gy m2): 2347 Air Kerma (mGy): 4.62 REASON FOR EXAM: ESRD Referring Physician: Silvia Contreras MD PROCEDURE: Ultrasound and fluoroscopic guided tunneled hemodialysis catheter placement with IV conscious sedation CPT code: 57078, 51764,85738 Hxml-xy-bicw procedure time is approximately: 45 minutes FINDINGS: [...] was used to access the vein. A care home dialysis catheter was tunneled under the subcutaneous [...] CC: Silvia Contreras MD Technologist: Ernie Martinez Trniab Date/Time: 07/13/2018 (719) Kelly Orig Print D/T: S: 07/13/2018 (5047) PAGE 1 Signed Report - [place] GUIDANCE [facility] [id number] 07:20:00 Name: XOCHILT EPSTEIN [facility] : 1940 Age/S: 77 / M [address] Unit #: [id number] Loc: [place] [address] Phys: Silvia Contreras MD Acct: [id number] Dis Date: Status: ADM IN PHONE #: [phone] Exam Date: 07/12/2018 1533 FAX #: [phone] Reason: EXAMS: CPT CODE: [id number] US GUIDANCE VASC ACCESS 85523 Fluoro Time: 6 DAP (Gy m2): 2347 Air Kerma (mGy): 4.692 REASON FOR EXAM: ESRD Referring Physician: Silvia Contreras MD PROCEDURE: Ultrasound and fluoroscopic guided tunneled hemodialysis catheter placement with IV conscious sedation CPT code: 75435, 93545,45332 Yoyq-jt-pqff procedure time is approximately: 45 minutes FINDINGS: [...] was used to access the vein. A care home dialysis catheter was tunneled under the subcutaneous [...] CC: Silvia Contreras MD Technologist[facility] Date/Time: 07/13/2018 (719) tANJELL Orig Print D/T: S: 07/13/2018 (2954) PAGE 1 Signed Report [id number] 06:20:00* Test Item Value Reference Range Interpretation Comments GLUBED (test code = GLUBED) 182 mg/dL 74-106 H Performed by certified flexboard operator at [facility] [id number] 01:10:00* Test Item Value Reference Range Interpretation Comments GLUBED (test code = GLUBED) 155 mg/dL 74-106 H Performed by certified flexboard operator at [facility] [id number] 21:38:00* Test Item Value Reference Range Interpretation Comments GLUBED (test code = GLUBED) 159 mg/dL 74-106 H Performed by certified flexboard operator at [facility] [id number] 21:37:00* Test Item Value Reference Range Interpretation Comments GLUBED (test code = GLUBED) 149 mg/dL 74-106 H Performed by certified flexboard operator at [facility] - XR CHEST 1 [id number] 16:29:00 FAX: Silvia Payan MD [phone] [place]: St: ADM Name: XOCHILT REYNA [facility] : [birth year] Age/S: 77/M [address] [facility] Unit #: [id number] Loc: V.2087 [place] [address] Phys: Earle Alvarado MD Acct: [id number] Dis Date: Status: ADM IN PHONE #: [phone] Exam Date: 07/12/2018 1610 FAX #: [phone] Reason: POST LINE PLACMENT EXAMS: CPT CODE: [id number] XR CHEST 1 V 40358 EXAM: Chest x-ray, one view; INFORMATION: Sepsis; [...] Signed by David Liao on 07/12/2018 at 5829 Reported and signed by: Guille santiago M.D. CC: Silvia Contreras MD Technologist: ALEXANDRA ROSALES RT(R) Trnscrd Date/Time/By: 07/12/2018 (5061) : By: Ty Orig Print D/T: S: 07/12/2018 (0604) PAGE 1 Signed Report AG HEPAT B [id number] 11:59:00* Test Item Value Reference Range Interpretation Comments AG HEPAT B SURF (test code = HBSAG) Nonreactive Index Nonreactive CBC W/AUTO [id number] 07:53:00* Test Item Value Reference Range Interpretation [...] = MDIFF) NO, ONLY SCAN NEEDED DIFFERENTIAL [id number] 07:53:00* Test Item Value Reference Range Interpretation Comments STAIN ACCEPTABILITY (test code = STN ACCEPTABLE) STAIN ACCEPTABLE MORPHOLOGY COMMENT (test code = MOC) NORMAL PLATELET ESTIMATE (test code = PLTEST) ADEQUATE PLATELET MORPHOLOGY (test code = PLTMORPH) NORMAL CBC W/AUTO [id number] 06:58:00* Test Item Value Reference Range Interpretation [...] = MDIFF) NO, ONLY SCAN NEEDED DIFFERENTIAL [id number] 06:58:00* Test Item Value Reference Range Interpretation Comments STAIN ACCEPTABILITY (test code = STN ACCEPTABLE) CABOT RINGS (test code = CAB) MORPHOLOGY COMMENT (test code = MOC) PLATELET ESTIMATE (test code = PLTEST) PLATELET MORPHOLOGY (test code = PLTMORPH) CBC W/AUTO [id number] 06:58:00* Test Item Value Reference Range Interpretation [...] = MDIFF) NO, ONLY SCAN NEEDED DIFFERENTIAL [id number] 06:58:00* Test Item Value Reference Range Interpretation Comments STAIN ACCEPTABILITY (test code = STN ACCEPTABLE) CABOT RINGS (test code = CAB) MORPHOLOGY COMMENT (test code = MOC) PLATELET ESTIMATE (test code = PLTEST) PLATELET MORPHOLOGY (test code = PLTMORPH) CBC W/AUTO [id number] 06:58:00* Test Item Value Reference Range Interpretation [...] = MDIFF) NO, ONLY SCAN NEEDED DIFFERENTIAL [id number] 06:58:00* Test Item Value Reference Range Interpretation Comments STAIN ACCEPTABILITY (test code = STN ACCEPTABLE) MORPHOLOGY COMMENT (test code = MOC) PLATELET ESTIMATE (test code = PLTEST) PLATELET MORPHOLOGY (test code = PLTMORPH) CBC W/AUTO [id number] 06:58:00* Test Item Value Reference Range Interpretation [...] = MDIFF) NO, ONLY SCAN NEEDED DIFFERENTIAL [id number] 06:58:00* Test Item Value Reference Range Interpretation Comments STAIN ACCEPTABILITY (test code = STN ACCEPTABLE) CABOT RINGS (test code = CAB) MORPHOLOGY COMMENT (test code = MOC) PLATELET ESTIMATE (test code = PLTEST) PLATELET MORPHOLOGY (test code = PLTMORPH) BASIC METABOLIC [id number] 06:53:00* Test Item Value Reference Range Interpretation [...] CA) 8.1 mg/dL 8.5-10.1 L BASIC METABOLIC [id number] 06:42:00* Test Item Value Reference Range Interpretation [...] CALCIUM (test code = CA) mg/dL 8.5-10.1 [id number] 05:55:00* Test Item Value Reference Range Interpretation Comments GLUBED (test code = GLUBED) 143 mg/dL 74-106 H Performed by certified flexboard operator at [facility] [id number] 20:38:00* Test Item Value Reference Range Interpretation Comments GLUBED (test code = GLUBED) 143 mg/dL 74-106 H Performed by certified flexboard operator at [facility] - XR CHEST 1 [id number] 19:10:00 FAX: Silvia Payan MD [phone] [place]: B St: ADM Name: XOCHILT REYNA [facility] : [birth year] Age/S: 77/M [address] Unit #: [id number] Loc: V.[address] [place] [address] Phys: Earle Alvarado MD Acct: [id number] Dis Date: Status: ADM IN PHONE #: [phone] Exam Date: 07/11/2018 1710 FAX #: [phone] Reason: CENTRAL LINE EXAMS: CPT CODE: [id number] XR CHEST 1 V 45725 EXAM: Chest x-ray, one view; INFORMATION: Sepsis; [...] at 1910 Reported and signed by: Guille Liao M.D. CC: Silvia Slade MD Technologist: PENNY EPSTEIN; MAXIME DISLA RT (R) Trnscrd Date/Time/By: 07/11/2018 (1909) : By: FernandoGRW Orig Print D/T: S: 07/11/2018 (1912) PAGE 1 Signed Report - [facility] GUIDANCE [facility] [id number] 17:42:00 Name: XOCHILT EPSTEIN [facility] : 1940 Age/S: 77 / M [address] Unit #: [id number] Loc: [place] [address] Phys: Silvia Contreras MD Acct: [id number] Dis Date: Status: ADM IN PHONE #: [phone] Exam Date: 07/11/2018 8033 FAX #: [phone] Reason: EXAMS: CPT CODE: [id number] US GUIDANCE VASC ACCESS 36642 Fluoro Time: 0 DAP (Gy m2): 0 [...] t.SDR.VTL Orig Print D/T: S: 07/11/2018 ( 9232) PAGE 1 Signed Report [id number] 16:23:00* Test Item Value Reference Range Interpretation Comments GLUBED (test code = GLUBED) 186 mg/dL 74-106 H Performed by certified flexboard operator at [facility] BASIC METABOLIC [id number] 15:06:00* Test Item Value Reference Range Interpretation [...] code = CA) 8.1 mg/dL 8.5-10.1 L [id number] 11:33:00* Test Item Value Reference Range Interpretation Comments GLUBED (test code = GLUBED) 185 mg/dL 74-106 H Performed by certified flexboard operator at [facility] [id number] 09:26:00* Test Item Value Reference Range Interpretation Comments VANCOMYCIN (test code = VANCO) 33.4 UG/ML 5.0-45.0 N CBC W/AUTO [id number] 09:19:00* Test Item Value Reference Range Interpretation [...] = MDIFF) NO, ONLY SCAN NEEDED DIFFERENTIAL [id number] 09:19:00* Test Item Value Reference Range Interpretation Comments STAIN ACCEPTABILITY (test code = STN ACCEPTABLE) STAIN ACCEPTABLE POLYCHROMASIA (test code = POLC) 1+ HYPOCHROMIA (test code = HYPO) 1+ POIKILOCYTOSIS (test code = POIK) 1+ ANISOCYTOSIS (test code = ANISO) 1+ PLATELET ESTIMATE (test code = PLTEST) ADEQUATE PLATELET MORPHOLOGY (test code = PLTMORPH) NORMAL CBC W/AUTO [id number] 07:26:00* Test Item Value Reference Range Interpretation [...] = MDIFF) NO, ONLY SCAN NEEDED DIFFERENTIAL [id number] 07:26:00* Test Item Value Reference Range Interpretation Comments STAIN ACCEPTABILITY (test code = STN ACCEPTABLE) CABOT RINGS (test code = CAB) MORPHOLOGY COMMENT (test code = MOC) PLATELET ESTIMATE (test code = PLTEST) PLATELET MORPHOLOGY (test code = PLTMORPH) CBC W/AUTO [id number] 07:26:00* Test Item Value Reference Range Interpretation [...] = MDIFF) NO, ONLY SCAN NEEDED DIFFERENTIAL [id number] 07:26:00* Test Item Value Reference Range Interpretation Comments STAIN ACCEPTABILITY (test code = STN ACCEPTABLE) CABOT RINGS (test code = CAB) MORPHOLOGY COMMENT (test code = MOC) PLATELET ESTIMATE (test code = PLTEST) PLATELET MORPHOLOGY (test code = PLTMORPH) CBC W/AUTO [id number] 07:26:00* Test Item Value Reference Range Interpretation [...] = MDIFF) NO, ONLY SCAN NEEDED DIFFERENTIAL [id number] 07:26:00* Test Item Value Reference Range Interpretation Comments STAIN ACCEPTABILITY (test code = STN ACCEPTABLE) MORPHOLOGY COMMENT (test code = MOC) PLATELET ESTIMATE (test code = PLTEST) PLATELET MORPHOLOGY (test code = PLTMORPH) CBC W/AUTO [id number] 07:26:00* Test Item Value Reference Range Interpretation [...] = MDIFF) NO, ONLY SCAN NEEDED DIFFERENTIAL [id number] 07:26:00* Test Item Value Reference Range Interpretation Comments STAIN ACCEPTABILITY (test code = STN ACCEPTABLE) CABOT RINGS (test code = CAB) MORPHOLOGY COMMENT (test code = MOC) PLATELET ESTIMATE (test code = PLTEST) PLATELET MORPHOLOGY (test code = PLTMORPH) BASIC METABOLIC [id number] 06:50:00* Test Item Value Reference Range Interpretation [...] CA) 8.1 mg/dL 8.5-10.1 L BASIC METABOLIC [id number] 06:48:00* Test Item Value Reference Range Interpretation [...] CALCIUM (test code = CA) mg/dL 8.5-10.1 [id number] 05:55:00* Test Item Value Reference Range Interpretation Comments GLUBED (test code = GLUBED) 192 mg/dL 74-106 H Performed by certified flexboard operator at [facility] [id number] 20:37:00* Test Item Value Reference Range Interpretation Comments GLUBED (test code = GLUBED) 194 mg/dL 74-106 H Performed by certified flexboard operator at [facility] UR SMEAR EOSINOPHIL [id number] 16:53:00* Test Item Value Reference Range Interpretation Comments UR SMEAR EOSINOPHIL COUNT (test code = EOSCTU) NONE SEEN per HPF NO NE SEEN UR NA,[id number] 16:53:00* Test Item Value Reference Range Interpretation Comments UR NA,RANDOM (test code = BETSY) 82 mmol/L 20-110 N UR PROTEIN/CREATININE [id number] 16:53:00* Test Item Value Reference Range Interpretation [...] RATIO 0.0-0. 20 H UR UREA NITROGEN [id number] 16:53:00* Test Item Value Reference Range Interpretation Comments UR UREA NITROGEN RANDOM (test code = UUN) 99 mg/dL 350-1000 L UR SMEAR EOSINOPHIL [id number] 16:43:00* Test Item Value Reference Range Interpretation Comments UR SMEAR EOSINOPHIL COUNT (test code = EOSCTU) per HPF NONE SE EN UR NA,[id number] 16:43:00* Test Item Value Reference Range Interpretation Comments UR NA,RANDOM (test code = BETSY) 82 mmol/L 20-110 N UR PROTEIN/CREATININE [id number] 16:43:00* Test Item Value Reference Range Interpretation [...] RATIO 0.0-0. 20 H UR UREA NITROGEN [id number] 16:43:00* Test Item Value Reference Range Interpretation Comments UR UREA NITROGEN RANDOM (test code = UUN) 99 mg/dL 350-1000 L UR SMEAR EOSINOPHIL [id number] 16:33:00* Test Item Value Reference Range Interpretation Comments UR SMEAR EOSINOPHIL COUNT (test code = EOSCTU) per HPF NONE SE EN UR NA,[id number] 16:33:00* Test Item Value Reference Range Interpretation Comments UR NA,RANDOM (test code = BETSY) 82 mmol/L 20-110 N UR PROTEIN/CREATININE [id number] 16:33:00* Test Item Value Reference Range Interpretation Comments UR PROTEIN RANDOM (test code = PROTU) mg/dL 0.0-11.9 UR CREATININE RANDOM (test code = CREATU) mg/dL 30-125 PROTEIN/CREATININE RATIO (test code = P/CRATIO) RATIO 0.0-0. 20 UR UREA NITROGEN [id number] 16:33:00* Test Item Value Reference Range Interpretation Comments UR UREA NITROGEN RANDOM (test code = UUN) mg/dL 350-1000 [id number] 16:12:00* Test Item Value Reference Range Interpretation Comments GLUBED (test code = GLUBED) 216 mg/dL 74-106 H Performed by certified flexboard operator at [facility] B-TYPE NATRIURETIC [id number] 14:17:00* Test Item Value Reference Range Interpretation Comments B-TYPE NATRIURETIC PEPTIDE (test code = BNP) 872.89 pgram/mL 0-100 H BASIC METABOLIC [id number] 12:16:00* Test Item Value Reference Range Interpretation [...] code = CA) 7.9 mg/dL 8.5-10.1 L [id number] 12:07:00* Test Item Value Reference Range Interpretation Comments GLUBED (test code = GLUBED) 181 mg/dL 74-106 H Performed by certified flexboard operator at [facility] VANCOMYCIN [id number] 11:21:00* Test Item Value Reference Range Interpretation Comments VANCOMYCIN TROUGH (test code = VANCT) 37.1 ug/mL 10-20 H [id number] 05:33:00* Test Item Value Reference Range Interpretation Comments GLUBED (test code = GLUBED) 162 mg/dL 74-106 H Performed by certified flexboard operator at [facility] - CT CHEST W/O [id number] 21:50:00 Name: LUCIANXOCHILTELICEO [facility] : 1940 Age/S: 77 / M [address] [facility] Unit #: [id number] Loc: [place] [address] Phys: Alexia Clinton MD Acct: [id number] Dis Date: Status: ADM IN PHONE #: [phone] Exam Date: 07/09/20182026 FAX #: [phone] Reason: abnormal cxr EXAMS: CPT CODE: [id number] CT CHEST W/O CONTRAST 78752 EXAM: CT of the chest without contrast; [...] and atelectatic changes. 3. Mild cardiomegaly. at 215 Reported and signed by: Guille Liao M.D. CC: Silvia Contreras MD; Alexia Clinton MD Technologist:TELLY BELL RT(R) CT CTDI: DLP: Trnscb Date/Time: 07/09/2018 (2149) t.[place].GRW Orig Print D/T: S: 07/09/2018 (2152) CTDI: DLP: PAGE 1 Signed Report [id number] 20:44:00* Test Item Value Reference Range Interpretation Comments GLUBED (test code = GLUBED) 217 mg/dL 74-106 H Performed by certified flexboard operator at [facility] [id number] 19:23:00* Test Item Value Reference Range Interpretation Comments GLUBED (test code = GLUBED) 226 mg/dL 74-106 H Performed by certified flexboard operator at [facility] URINALYSIS [id number] 16:05:00* Test Item Value Reference Range Interpretation [...] A Urine Source? Catheter- XR CHEST 1 [id number] 16:05:00 FAX: Silvia Payan MD [phone] [place]: St: ADM FAX: Talon Johnson MD [phone] Name: XOCHILT EPSTEINELICEO [facility] : 1940 Age/S: 77/M [address] [facility] Unit #: [id number] Loc: V.2086 [place] [address] Phys: Talon Coates MD Acct: [id number] Dis Date: Status: ADM IN PHONE #: [phone] Exam Date: 07/09/2018 1457 FAX #: [phone] Reason: SOB,cough,CP EXAMS: CPT CODE: [id number] XR CHEST 1 V 50909 EXAM: Chest x-ray, one view; INFORMATION: Sepsis, [...] The heart is borderline in size. at 1607 Reported and signed by: Sarina Ruelas CC: Silvia Contreras MD; Talon Coates M.D. Technologist: Jamila Brandon RT(R) T rnscrd Date/Time/By: 07/09/2018 (1506) : By: FernandoGRW Orig Print D/T: S: 07/09/2018 (0849) PAGE 1 Sign ed Report URINALYSIS [id number] 15:54:00* Test Item Value Reference Range Interpretation [...] WBCU) per HPF 0-5 Urine Source? CatheterURINALYSIS [id number] 15:54:00* Test Item Value Reference Range Interpretation [...] = WBCU) per HPF 0-5 Urine Source? [id number] 14:29:00* Test Item Value Reference Range Interpretation Comments TROPONIN-I (test code = TROPI) 0.526 ng/mL 0-0.045 Results called to [id number] by V.LAB.KNG1 07/09/18 1429Critical results verified and read back by Nurse? Y BASIC METABOLIC [id number] 14:18:00* Test Item Value Reference Range Interpretation [...] CA) 7.9 mg/dL 8.5-10.1 L BASIC METABOLIC [id number] 14:15:00* Test Item Value Reference Range Interpretation [...] CA) 7.9 mg/dL 8.5-10.1 L CBC W/AUTO [id number] 13:37:00* Test Item Value Reference Range Interpretation [...] DIFF REQUIRED (test code = MDIFF) NO [id number] 12:34:00* Test Item Value Reference Range Interpretation Comments GLUBED (test code = GLUBED) 244 mg/dL 74-106 H Performed by certified flexboard operator at [facility] [id number] 06:20:00* Test Item Value Reference Range Interpretation Comments GLUBED (test code = GLUBED) 166 mg/dL 74-106 H Performed by certified flexboard operator at [facility] [id number] 21:01:00* Test Item Value Reference Range Interpretation Comments GLUBED (test code = GLUBED) 222 mg/dL 74-106 H Performed by certified flexboard operator at [facility] [id number] 18:06:00* Test Item Value Reference Range Interpretation Comments GLUBED (test code = GLUBED) 212 mg/dL 74-106 H Performed by certified flexboard operator at [facility] [id number] 12:38:00* Test Item Value Reference Range Interpretation Comments GLUBED (test code = GLUBED) 170 mg/dL 74-106 H Performed by certified flexboard operator at [facility] BASIC METABOLIC [id number] 07:07:00* Test Item Value Reference Range Interpretation [...] CA) 8.1 mg/dL 8.5-10.1 L BASIC METABOLIC [id number] 06:59:00* Test Item Value Reference Range Interpretation [...] code = CA) mg/dL 8.5-10.1 CBC W/O [id number] 06:52:00* Test Item Value Reference Range Interpretation [...] code = MPV) 9.2 fL 6.7-11.0 N [id number] 06:36:00* Test Item Value Reference Range Interpretation Comments GLUBED (test code = GLUBED) 152 mg/dL 74-106 H Performed by certified flexboard operator at [facility] [facility] [id number] 06:01:00* Test Item Value Reference Range Interpretation Comments GLUBED (test code = GLUBED) 181 mg/dL 74-106 H Performed by certified flexboard operator at [facility] [id number] 16:30:00* Test Item Value Reference Range Interpretation Comments GLUBED (test code = GLUBED) 192 mg/dL 74-106 H Performed by certified flexboard operator at [facility] [id number] 10:58:00* Test Item Value Reference Range Interpretation Comments GLUBED (test code = GLUBED) 168 mg/dL 74-106 H Performed by certified flexboard operator at [facility] [id number] 04:58:00* Test Item Value Reference Range Interpretation Comments GLUBED (test code = GLUBED) 178 mg/dL 74-106 H Performed by certified flexboard operator at [facility] [id number] 21:39:00* Test Item Value Reference Range Interpretation Comments GLUBED (test code = GLUBED) 232 mg/dL 74-106 H Performed by certified flexboard operator at [facility] [id number] 17:03:00* Test Item Value Reference Range Interpretation Comments GLUBED (test code = GLUBED) 168 mg/dL 74-106 H Performed by certified flexboard operator at [facility] [id number] 11:11:00* Test Item Value Reference Range Interpretation Comments GLUBED (test code = GLUBED) 205 mg/dL 74-106 H Performed by certified flexboard operator at [facility] BASIC METABOLIC [id number] 05:51:00* Test Item Value Reference Range Interpretation [...] CA) 8.1 mg/dL 8.5-10.1 L BASIC METABOLIC [id number] 05:46:00* Test Item Value Reference Range Interpretation [...] CALCIUM (test code = CA) mg/dL 8.5-10.1 [id number] 05:38:00* Test Item Value Reference Range Interpretation Comments GLUBED (test code = GLUBED) 132 mg/dL 74-106 H Performed by certified flexboard operator at [facility] CBC W/O [id number] 05:28:00* Test Item Value Reference Range Interpretation [...] code = MPV) 9.1 fL 6.7-11.0 N [id number] 21:15:00* Test Item Value Reference Range Interpretation Comments GLUBED (test code = GLUBED) 203 mg/dL 74-106 H Performed by certified flexboard operator at [facility] VANCOMYCIN [id number] 15:14:00* Test Item Value Reference Range Interpretation Comments VANCOMYCIN TROUGH (test code = VANCT) 18.0 ug/mL 10-20 N [id number] 12:22:00* Test Item Value Reference Range Interpretation Comments GLUBED (test code = GLUBED) 140 mg/dL 74-106 H Performed by certified flexboard operator at [facility] BLOOD UREA [id number] 10:52:00* Test Item Value Reference Range Interpretation Comments BLOOD UREA NITROGEN (test code = BUN) 9 mg/dL 7-18 N [id number] 10:52:00* Test Item Value Reference Range Interpretation Comments CREATININE (test code = CREAT) 0.60 mg/dL 0.7-1.3 L [id number] 07:32:00* Test Item Value Reference Range Interpretation Comments GLUBED (test code = GLUBED) 139 mg/dL 74-106 H Performed by certified flexboard operator at [facility] BLOOD UREA [id number] 06:01:00* Test Item Value Reference Range Interpretation Comments BLOOD UREA NITROGEN (test code = BUN) 9 mg/dL 7-18 N [id number] 06:01:00* Test Item Value Reference Range Interpretation Comments CREATINE (test code = CRTN) mg/dL 0.17-0.93 [id number] 22:30:00* Test Item Value Reference Range Interpretation Comments GLUBED (test code = GLUBED) 213 mg/dL 74-106 H Performed by certified flexboard operator at [facility] [id number] 16:28:00* Test Item Value Reference Range Interpretation Comments GLUBED (test code = GLUBED) 192 mg/dL 74-106 H Performed by certified flexboard operator at [facility] [id number] 11:39:00* Test Item Value Reference Range Interpretation Comments GLUBED (test code = GLUBED) 228 mg/dL 74-106 H Performed by certified flexboard operator at [facility] BLOOD UREA [id number] 07:39:00* Test Item Value Reference Range Interpretation Comments BLOOD UREA NITROGEN (test code = BUN) 10 mg/dL 7-18 N [id number] 07:39:00* Test Item Value Reference Range Interpretation Comments CREATININE (test code = CREAT) 0.60 mg/dL 0.7-1.3 L [id number] 05:53:00* Test Item Value Reference Range Interpretation Comments GLUBED (test code = GLUBED) 138 mg/dL 74-106 H Performed by certified flexboard operator at [facility] [id number] 21:05:00* Test Item Value Reference Range Interpretation Comments GLUBED (test code = GLUBED) 215 mg/dL 74-106 H Performed by certified flexboard operator at [facility] [id number] 17:38:00* Test Item Value Reference Range Interpretation Comments GLUBED (test code = GLUBED) 182 mg/dL 74-106 H Performed by certified flexboard operator at [facility] [id number] 12:41:00* Test Item Value Reference Range Interpretation Comments GLUBED (test code = GLUBED) 156 mg/dL 74-106 H Performed by certified flexboard operator at [facility] [id number] 05:05:00* Test Item Value Reference Range Interpretation Comments GLUBED (test code = GLUBED) 128 mg/dL 74-106 H Performed by certified flexboard operator at [facility] BASIC METABOLIC [id number] 02:58:00* Test Item Value Reference Range Interpretation [...] CA) 7.5 mg/dL 8.5-10.1 L BASIC METABOLIC [id number] 02:57:00* Test Item Value Reference Range Interpretation [...] CALCIUM (test code = CA) mg/dL 8.5-10.1 [id number] 02:54:00* Test Item Value Reference Range Interpretation Comments VANCOMYCIN (test code = VANCO) 13.9 UG/ML 5.0-45.0 N [id number] 21:44:00* Test Item Value Reference Range Interpretation Comments GLUBED (test code = GLUBED) 201 mg/dL 74-106 H Performed by certified flexboard operator at [facility] VANCOMYCIN [id number] 17:37:00* Test Item Value Reference Range Interpretation Comments VANCOMYCIN TROUGH (test code = VANCT) 26.2 ug/mL 10-20 H COMMENTS TO PROMOTIONS ASSISTANT SALES MARKETING: TO BE DRAW AT [id number] 17:31:00* Test Item Value Reference Range Interpretation Comments GLUBED (test code = GLUBED) 281 mg/dL 74-106 H Performed by certified flexboard operator at [facility] CALCULUS (STONE) [id number] 14:58:00* Test Item Value Reference Range Interpretation [...] Comment: Calcium oxalate dihydrate Test performed at: [facility] [address] [place] [address] STONE ANALYSIS (test code = STONE) () Photograph will follow under separate cover. WEIGHT OF STONE (test code = STONEWT) 274.0 mg () Test performed at: [facility] [address] [place] [address] SPECIMEN COMMENTS: BLADDER STONESCOMMENTS TO PROMOTIONS ASSISTANT SALES MARKETING: COLLECTED DURING SURG ERYCALCULUS (STONE) [id number] 14:15:00* Test Item Value Reference Range Interpretation Comments SOURCE OF STONE (test code = STONESRC) STONE ANALYSIS COMMENT (test code = STONECOM) NIDUS STONE ANALYSIS (test code = STONE) () Photograph will follow under separate cover. WEIGHT OF STONE (test code = STONEWT) 274.0 mg () Test performed at: [facility] [address] [place] [address] SPECIMEN COMMENTS: BLADDER STONESCOMMENTS TO PROMOTIONS ASSISTANT SALES MARKETING: COLLECTED DURING SURG [id number] 12:17:00* Test Item Value Reference Range Interpretation Comments GLUBED (test code = GLUBED) 236 mg/dL 74-106 H Performed by certified flexboard operator at [facility] CBC W/MANUAL [id number] 08:10:00* Test Item Value Reference Range Interpretation [...] code = IMMAT) 0 % BASIC METABOLIC [id number] 07:07:00* Test Item Value Reference Range Interpretation [...] CA) 7.9 mg/dL 8.5-10.1 L CBC W/MANUAL [id number] 07:02:00* Test Item Value Reference Range Interpretation [...] MORPHOLOGY (test code = PLTMORPH) CBC W/MANUAL [id number] 07:02:00* Test Item Value Reference Range Interpretation [...] MORPHOLOGY (test code = PLTMORPH) CBC W/MANUAL [id number] 07:02:00* Test Item Value Reference Range Interpretation [...] MORPHOLOGY (test code = PLTMORPH) CBC W/MANUAL [id number] 07:02:00* Test Item Value Reference Range Interpretation [...] MORPHOLOGY (test code = PLTMORPH) CBC W/MANUAL [id number] 07:02:00* Test Item Value Reference Range Interpretation [...] MORPHOLOGY (test code = PLTMORPH) BASIC METABOLIC [id number] 07:00:00* Test Item Value Reference Range Interpretation [...] CALCIUM (test code = CA) mg/dL 8.5-10.1 [id number] 06:32:00* Test Item Value Reference Range Interpretation Comments GLUBED (test code = GLUBED) 146 mg/dL 74-106 H Performed by certified flexboard operator at [facility] [id number] 20:56:00* Test Item Value Reference Range Interpretation Comments GLUBED (test code = GLUBED) 227 mg/dL 74-106 H Performed by certified flexboard operator at [facility] CBC W/MANUAL [id number] 08:20:00* Test Item Value Reference Range Interpretation [...] (test code = PLTMORPH) NORMAL BASIC METABOLIC [id number] 07:41:00* Test Item Value Reference Range Interpretation [...] CA) 7.8 mg/dL 8.5-10.1 L BASIC METABOLIC [id number] 07:38:00* Test Item Value Reference Range Interpretation [...] code = CA) mg/dL 8.5-10.1 CBC W/MANUAL [id number] 07:13:00* Test Item Value Reference Range Interpretation [...] MORPHOLOGY (test code = PLTMORPH) CBC W/MANUAL [id number] 07:13:00* Test Item Value Reference Range Interpretation [...] MORPHOLOGY (test code = PLTMORPH) CBC W/MANUAL [id number] 07:13:00* Test Item Value Reference Range Interpretation [...] MORPHOLOGY (test code = PLTMORPH) CBC W/MANUAL [id number] 07:13:00* Test Item Value Reference Range Interpretation [...] MORPHOLOGY (test code = PLTMORPH) CBC W/MANUAL [id number] 07:13:00* Test Item Value Reference Range Interpretation [...] PLTEST) PLATELET MORPHOLOGY (test code = PLTMORPH) [id number] 20:50:00* Test Item Value Reference Range Interpretation Comments GLUBED (test code = GLUBED) 237 mg/dL 74-106 H Performed [facility] certified flexboard operator [facility]~ VANCOMYCIN [id number] 17:42:00* Test Item Value Reference Range Interpretation Comments VANCOMYCIN TROUGH (test code = VANCT) 15.1 ug/mL 10-20 N [id number] 16:22:00* Test Item Value Reference Range Interpretation Comments GLUBED (test code = GLUBED) 184 mg/dL 74-106 H Performed by certified flexboard operator at [facility] [id number] 16:05:00* Test Item Value Reference Range Interpretation Comments GLUBED (test code = GLUBED) 152 mg/dL 74-106 H Performed by certified flexboard operator at [facility] [id number] 08:13:00* Test Item Value Reference Range Interpretation Comments GLUBED (test code = GLUBED) 129 mg/dL 74-106 H Performed by certified flexboard operator at [facility] CBC W/MANUAL [id number] 07:04:00* Test Item Value Reference Range Interpretation [...] code = IMMAT) 0 % BASIC METABOLIC [id number] 07:04:00* Test Item Value Reference Range Interpretation [...] = CA) 8.2 mg/dL 8.5-10.1 L VANCOMYCIN [id number] 07:01:00* Test Item Value Reference Range Interpretation Comments VANCOMYCIN TROUGH (test code = VANCT) 38.3 ug/mL 10-20 H BASIC METABOLIC [id number] 06:58:00* Test Item Value Reference Range Interpretation [...] code = CA) mg/dL 8.5-10.1 CBC W/MANUAL [id number] 06:41:00* Test Item Value Reference Range Interpretation [...] MORPHOLOGY (test code = PLTMORPH) CBC W/MANUAL [id number] 06:41:00* Test Item Value Reference Range Interpretation [...] MORPHOLOGY (test code = PLTMORPH) CBC W/MANUAL [id number] 06:41:00* Test Item Value Reference Range Interpretation [...] MORPHOLOGY (test code = PLTMORPH) CBC W/MANUAL [id number] 06:41:00* Test Item Value Reference Range Interpretation [...] MORPHOLOGY (test code = PLTMORPH) CBC W/MANUAL [id number] 06:41:00* Test Item Value Reference Range Interpretation [...] MORPHOLOGY (test code = PLTMORPH) CBC W/AUTO [id number] 06:38:00* Test Item Value Reference Range Interpretation [...] # (test code = BA#) K/mm3 0.0-0.2 [id number] 20:48:00* Test Item Value Reference Range Interpretation Comments GLUBED (test code = GLUBED) 237 mg/dL 74-106 H Performed by certified flexboard operator [facility]~ [id number] 17:10:00* Test Item Value Reference Range Interpretation Comments GLUBED (test code = GLUBED) 171 mg/dL 74-106 H Performed by certified flexboard operator at [facility] [id number] 11:59:00* Test Item Value Reference Range Interpretation Comments GLUBED (test code = GLUBED) 188 mg/dL 74-106 H Performed by certified flexboard operator at [facility] [id number] 08:33:00* Test Item Value Reference Range Interpretation Comments GLUBED (test code = GLUBED) 162 mg/dL 74-106 H Performed by certified flexboard operator at [facility] BASIC METABOLIC [id number] 07:05:00* Test Item Value Reference Range Interpretation [...] CA) 8.2 mg/dL 8.5-10.1 L CBC W/AUTO [id number] 06:56:00* Test Item Value Reference Range Interpretation [...] DIFF REQUIRED (test code = MDIFF) NO [id number] 21:03:00* Test Item Value Reference Range Interpretation Comments GLUBED (test code = GLUBED) 138 mg/dL 74-106 H Performed by certified flexboard operator at [facility] [id number] 20:51:00* Test Item Value Reference Range Interpretation Comments GLUBED (test code = GLUBED) 210 mg/dL 74-106 H Performed by certified flexboard operator at [facility] [id number] 14:51:00 RUN DATE: 06/28/18 [place] [facility] PAGE 1 RUN TIME: 1451 Specimen Inqui ry RUN USER: INTERFACE PATIENT: XOCHILT EPSTEIN ACCT #: [id number] LOC: VLuisMTU U #: [id number] AGE/SX: 77/M ROOM: [facility] RE06/22/18[facility] DR: Silvia Contreras MD : 40 BED: A DIS: STATUS: ADM IN TLOC: SPEC #: [id number] RECD: 06/27/18 STATUS: MARLO SHETTY #: [id number] BERNARD: 06/27/18 [facility] DR: Feliciano Hendricks MD ENTERED: 06/27/18 SP TYPE: CALCULI OTHR DR: Hernando Encarnacion MD, MD,Lady Mehta DPM, Zaher MD Watkins, Herbert LeonardORDERED: GROSS COPIES TO: Hernando Canales MD [address] [place], [place] [address] Albaro HICKS,Akira Menchaca [address] [place] [address] Lady Abraham DPM [address] [place] [address] Rome Hendricks MD [address] [place] [address] Reg Luke MD [address] [place] [address] Kwaku Clement chan [address] [place] [address] PROCEDURES: SVETLANA (06/27/18) TISSUES: URINARY BLADDER, NOS - STONES CONTINUED ON NEXT PAGE RUN DATE: 06/28/18 [place] [facility] PAGE 2 RUN TIME: 1451 Specimen Inquiry RUN USER: IN GADIEL PANCHO EC #: [id number] PATIENT: XOCHILT EPSTEIN #[id number] ( Continued) CLINICAL HISTORY COLLECTION DATE: 06/27/18 BLADDER STONE FINAL DIAGNOSIS Bladder stones, removal: CALCU LI TO BE SENT FOR CHEMICAL ANALYSIS [facility]/ D [address] [address] The specimen is received in a container labeled with the patient's nam e and identified as "bladder stone". It consists of brown calculi/calculi fra gments measuring 1 cm in aggregate. GROSS PERFORMED AT [facility] [address] [place] [address], [place] [address] (P)[phone] Signed SIGNATURE ON FILE Sol Dozier MD 06/28/18 1451 END OF REPORT [id number] 12:51:00* Test Item Value Reference Range Interpretation Comments GLUBED (test code = GLUBED) 133 mg/dL 74-106 H Performed by certified flexboard operator at [facility]~ [id number] 12:51:00* Test Item Value Reference Range Interpretation Comments GLUBED (test code = GLUBED) 140 mg/dL 74-106 H Performed by certified flexboard operator at [facility]~ BASIC METABOLIC [id number] 11:17:00* Test Item Value Reference Range Interpretation [...] CA) 7.8 mg/dL 8.5-10.1 L BASIC METABOLIC [id number] 11:11:00* Test Item Value Reference Range Interpretation [...] code = CA) mg/dL 8.5-10.1 CBC W/AUTO [id number] 10:32:00* Test Item Value Reference Range Interpretation [...] REQUIRED (test code = MDIFF) NO VANCOMYCIN [id number] 06:43:00* Test Item Value Reference Range Interpretation Comments VANCOMYCIN TROUGH (test code = VANCT) 17.9 ug/mL 10-20 N [id number] 20:30:00* Test Item Value Reference Range Interpretation Comments GLUBED (test code = GLUBED) 275 mg/dL 74-106 H Performed by certified flexboard operator at [facility] [id number] 16:27:00* Test Item Value Reference Range Interpretation Comments GLUBED (test code = GLUBED) 176 mg/dL 74-106 H Performed by certified flexboard operator at [facility]~ [id number] 12:36:00* Test Item Value Reference Range Interpretation Comments GLUBED (test code = GLUBED) 144 mg/dL 74-106 H Performed by certified flexboard operator at [facility]~ [id number] 08:18:00* Test Item Value Reference Range Interpretation Comments GLUBED (test code = GLUBED) 114 mg/dL 74-106 H Performed by certified flexboard operator at [facility]~ CBC W/AUTO [id number] 07:46:00* Test Item Value Reference Range Interpretation [...] (test code = MDIFF) NO BASIC METABOLIC [id number] 07:43:00* Test Item Value Reference Range Interpretation [...] CA) 7.7 mg/dL 8.5-10.1 L CBC W/AUTO [id number] 07:15:00* Test Item Value Reference Range Interpretation [...] # (test code = BA#) K/mm3 0.0-0.2 [id number] 21:08:00* Test Item Value Reference Range Interpretation Comments GLUBED (test code = GLUBED) 145 mg/dL 74-106 H Performed by certified flexboard operator at [facility] [id number] 16:20:00* Test Item Value Reference Range Interpretation Comments GLUBED (test code = GLUBED) 104 mg/dL 74-106 N Performed by certified flexboard operator at [facility] - NM BONE [id number] 13:24:00 FAX: Lady Kilgore DPM [phone] [place]: St: [facility] FAX: Rome Hendricks [phone] Name: XOCHILT EPSTEIN [facility] : 1940 Age/S: 77/M [address] Unit #: [id number] Loc: Beth[address] [place] [address] Phys: Lady Abraham DPM Acct: [id number] Dis Date: Status: ADM IN PHONE #: [phone] Exam Date: 06/26/2018 1200 FAX #: [phone] Reason: ulcer LT.FOOT EXAMS: CPT CODE: [id number] NM BONE LIMITED [address] HISTORY: Left foot ulcer. COMPARISON: None available. [...] and signed by: Atif garrido M.D. CC: Lday Abraham DPM; Rome Hendricks MD Technologist: ARGENTINA CRANDALL James Trnscrd Date/Time/By: 06/26/2018 (4812) : By: [email or web address] Orig Print D/ T: S: 06/26/2018 (2205) PAGE 1 Si gned Report [id number] 12:18:00* Test Item Value Reference Range Interpretation Comments GLUBED (test code = GLUBED) 181 mg/dL 74-106 H Performed by certified flexboard operator at [facility] [id number] 08:08:00* Test Item Value Reference Range Interpretation Comments GLUBED (test code = GLUBED) 123 mg/dL 74-106 H Performed by certified flexboard operator at [facility] BASIC METABOLIC [id number] 05:46:00* Test Item Value Reference Range Interpretation [...] CA) 7.9 mg/dL 8.5-10.1 L BASIC METABOLIC [id number] 05:29:00* Test Item Value Reference Range Interpretation [...] code = CA) mg/dL 8.5-10.1 CBC W/AUTO [id number] 05:19:00* Test Item Value Reference Range Interpretation [...] (test code = MDIFF) NO CBC W/AUTO [id number] 05:16:00* Test Item Value Reference Range Interpretation [...] # (test code = BA#) K/mm3 0.0-0.2 [id number] 20:55:00* Test Item Value Reference Range Interpretation Comments GLUBED (test code = GLUBED) 186 mg/dL 74-106 H Performed by certified flexboard operator at [facility]~ - CTA LOW EXTREMITY [id number] 17:41:00 Name: XOCHILT EPSTEINELICEO [facility] : 1940 Age/S: 77 / M [address] [facility] Unit #: [id number] Loc: [place] [address] Phys: Talon Coates MD Acct: [id number] Dis Date: Status: ADM IN PHONE #: [phone] Exam Date: 06/25/2018 1330 FAX #: [phone] Reason: severe PAD EXAMS: CPT CODE: [id number] [address] REASON FOR EXAM: severe PAD EXAM ORDER DATE: 06/25/2018 11:08 AM Ordering David: Talon Coates MD PROCEDURE: - CTA LOW [...] vessel runoff to the right foot. at 4220 Reported and signed by: Earle Alvarado M.D. PAGE 1 Signed Report (CONTINUED) Name: XOCHILT EPSTEIN [facility] : 1940 e/S: 77 / M [address] [place] [address] Unit #: [id number] Loc: [place] [address] Phys: Talon Coates MD Acct: [id number] Dis Date: Status: ADM IN PHONE #: [phone] Exam Date: 06/25/2018 7097 FAX #: [phone] Reason: severe PAD EXAMS: CPT CODE: [id number] [place] [address] <Continued> CC: Talon Coates M.D.; Rome Hendricks MD Technologist:Jason Patrick RT(R),(MR),(CT); CTDI: DLP: Trnscb Date/Time: 06/25/2018 (161) BritneyL Orig Print D/T: S: 06/25/2018 (3213) CTDI: DLP: PAGE 2 Signed Report [id number] 17:33:00* Test Item Value Reference Range Interpretation Comments GLUBED (test code = GLUBED) 134 mg/dL 74-106 H Performed by certified flexboard operator at [facility] [id number] 12:50:00* Test Item Value Reference Range Interpretation Comments GLUBED (test code = GLUBED) 187 mg/dL 74-106 H Performed by certified flexboard operator at [facility] BASIC METABOLIC [id number] 12:11:00* Test Item Value Reference Range Interpretation [...] CA) 7.6 mg/dL 8.5-10.1 L BASIC METABOLIC [id number] 12:10:00* Test Item Value Reference Range Interpretation [...] code = CA) mg/dL 8.5-10.1 CBC W/AUTO [id number] 11:54:00* Test Item Value Reference Range Interpretation [...] code = NRBC#) 0.00 K/mm3 0.0-0.1 N [id number] 08:20:00* Test Item Value Reference Range Interpretation Comments GLUBED (test code = GLUBED) 120 mg/dL 74-106 H Performed by certified flexboard operator at [facility] [id number] 21:05:00* Test Item Value Reference Range Interpretation Comments GLUBED (test code = GLUBED) 165 mg/dL 74-106 H Performed by certified flexboard operator at [facility]~ VANCOMYCIN [id number] 17:59:00* Test Item Value Reference Range Interpretation Comments VANCOMYCIN TROUGH (test code = VANCT) 9.9 ug/mL 10-20 L [id number] 16:38:00* Test Item Value Reference Range Interpretation Comments GLUBED (test code = GLUBED) 123 mg/dL 74-106 H Performed by certified flexboard operator at [facility] [id number] 12:26:00* Test Item Value Reference Range Interpretation Comments GLUBED (test code = GLUBED) 142 mg/dL 74-106 H Performed by certified flexboard operator at [facility] [id number] 08:36:00* Test Item Value Reference Range Interpretation Comments GLUBED (test code = GLUBED) 176 mg/dL 74-106 H Performed by certified flexboard operator at [facility] VANCOMYCIN [id number] 06:57:00* Test Item Value Reference Range Interpretation Comments VANCOMYCIN TROUGH (test code = VANCT) 9.9 ug/mL 10-20 L BASIC METABOLIC [id number] 06:52:00* Test Item Value Reference Range Interpretation [...] CA) 8.0 mg/dL 8.5-10.1 L BASIC METABOLIC [id number] 06:47:00* Test Item Value Reference Range Interpretation [...] code = CA) mg/dL 8.5-10.1 CBC W/O [id number] 06:26:00* Test Item Value Reference Range Interpretation [...] code = MPV) 9.1 fL 6.7-11.0 N [id number] 20:30:00* Test Item Value Reference Range Interpretation Comments GLUBED (test code = GLUBED) 134 mg/dL 74-106 H Performed by certified flexboard operator at [facility] [id number] 20:29:00* Test Item Value Reference Range Interpretation Comments GLUBED (test code = GLUBED) 175 mg/dL 74-106 H Performed by certified flexboard operator at [facility] - US RETROPERITONEAL [id number] 16:41:00 Name: XOCHILT EPSTEIN [facility] : 1940 Age/S: 77 / M [address] [facility] Unit #: [id number] Loc: ELI[place] Kwan [address] Phys: Kwaku Clement Acct: [id number] Dis Date: Status: ADM IN PHONE #: [phone] Exam Date: 06/23/2018 8588 FAX #: [phone] Reason: micro- hematuria EXAMS: CPT CODE: [id number] [facility] [place] [address] HISTORY: Microhematuria. COMPARISON: None available. Both kidneys [...] MD; Kwaku Clement M.D. Technologist: PRETTY MAYORGA Trniab Date/Time: 06/23/2018 (1640) [email or web address] Orig Print D/T: S: 06/23/2018 (4395) Probe: PAGE 1 Signed Report [id number] 12:25:00* Test Item Value Reference Range Interpretation Comments GLUBED (test code = GLUBED) 148 mg/dL 74-106 H Performed by certified flexboard operator at [facility] [id number] 12:25:00* Test Item Value Reference Range Interpretation Comments GLUBED (test code = GLUBED) 221 mg/dL 74-106 H Performed by certified flexboard operator at [facility] [id number] 10:39:00* Test Item Value Reference Range Interpretation Comments GLYCOSYLATED HEMOGLOBIN (HA1C) (test code = GLYHGB) 11.1 % HbA1 4. 8-6.0 H ESTIMATED AVERAGE GLUCOSE (test code = EAG) 272 MG/DL LACTIC [id number] 23:22:00* Test Item Value Reference Range Interpretation [...] interpreted taking into account the patients history. [id number] 20:54:00* Test Item Value Reference Range Interpretation Comments GLUBED (test code = GLUBED) 110 mg/dL 74-106 H Performed by certified flexboard operator at [facility] LACTIC [id number] 19:41:00* Test Item Value Reference Range Interpretation Comments LACTIC ACID (test code = LACT) 0.8 mmol/L 0.4-1.9 N - XR FOOT 3 + V [id number] 18:50:00 FAX: La Andersen [phone] [place]: B St: REG Name: Jonathon TEODORAREAGANXOCHILT [facility] : [birth year] Age/S: 77/M [address] [facility] Unit #: [id number] Loc: [place] [address] Phys: La Pedersen MD Acct: [id number] Dis Date: Status: REG ER PHONE #: [phone] Exam Date: 06/22/2018 4284 FAX #: [phone] 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 EXAMS: CPT CODE: [id number] XR FOOT 3 + V LT [address] REASON FOR EXAM: heel and 2nd toe gangrene EXAM ORDER DATE: 06/22/2018 5:19 PM Ordering David: La Pedersen MD PROCEDURE: - XR FOOT [...] Das Trnscrd Date/Time/By: 06/22/2018 (1849) : By: FernandoVTL Orig Print D/T: S: 06/22/2018 (1853) PAGE 1 Signed Report - XR CHEST 1 [id number] 18:49:00 FAX: La Andersen [phone] [place]: St: REG Name: XOCHILT REYNA [facility] : [birth year] Age/S: 77/M [address] [facility] Unit #: [id number] Loc: ST[place] [address] Phys: La Pedersen MD Acct: [id number] Dis Date: Status: REG ER PHONE #: [phone] Exam Date: 06/22/20181821 FAX #: [phone] Reason: CODE SEPSIS EXAMS: CPT CODE: [id number] XR CHEST 1 V 83343 REASON FOR EXAM: CODE SEPSIS EXAM ORDER [...] unremarkable. IMPRESSION: No active dise ase. at 1849 Reported and signed by: Earle Alvarado M.D. CC: La Pedersen MD Technologist: Ashley Kilpatrick Trnscrd Date/Time/By: 06/23/19 (1848) : By: BritneyL Orig Print D/T: S: 06/22/2018 (592) PAGE 1 Signed Report B-TYPE NATRIURETIC [id number] 18:39:00* Test Item Value Reference Range Interpretation Comments B-TYPE NATRIURETIC PEPTIDE (test code = BNP) 84.33 pgram/mL 0-100 N LACTIC [id number] 18:33:00* Test Item Value Reference Range Interpretation Comments LACTIC ACID (test code = LACT) 2.0 mmol/L 0.4-1.9 H Results called to Devante VASQUEZ by V.LAB.QUR 06/22/18 1833Critical results verified and read back by Nurse? Y BASIC METABOLIC [id number] 18:26:00* Test Item Value Reference Range Interpretation [...] CA) 9.1 mg/dL 8.5-10.1 N HEPATIC FUNCTION [id number] 18:26:00* Test Item Value Reference Range Interpretation [...] reference range due to change in reagent. [id number] 18:26:00* Test Item Value Reference Range Interpretation Comments TROPONIN-I (test code = TROPI) <0.015 ng/mL 0-0.045 N BASIC METABOLIC [id number] 18:21:00* Test Item Value Reference Range Interpretation [...] code = CA) mg/dL 8.5-10.1 HEPATIC FUNCTION [id number] 18:21:00* Test Item Value Reference Range Interpretation [...] TOTAL (test code = ALKP) IUnit/L 45-117 [id number] 18:21:00* Test Item Value Reference Range Interpretation Comments TROPONIN-I (test code = TROPI) ng/mL 0-0.045 [id number] 18:21:00* Test Item Value Reference Range Interpretation Comments MAGNESIUM (test code = MAG) 1.5 mg/dL 1.8-2.4 L PROTHROMBIN [id number] 18:04:00* Test Item Value Reference Range Interpretation [...] (2.5-3.5) IS PATIENT ON ANTICOAGULANTS? NTHROMBOPLASTIN TIME [id number] 18:04:00* Test Item Value Reference Range Interpretation Comments THROMBOPLASTIN TIME PARTIAL (test code = PTT) 36.2 seconds 25.0-36. 5 N IS PATIENT ON ANTICOAGULANTS? NURINALYSIS [id number] 18:01:00* Test Item Value Reference Range Interpretation [...] Urine Source? Clean Catch- CT HEAD/BRAIN W/O [id number] 18:01:00 Name: XOCHILT EPSTEIN [facility] : 1940 Age/S: 77 / M [address] [facility] Unit #: [id number] Loc: ELIECER Kwan [address] Phys: La Pedersen MD Acct: [id number] Di s Date: Status: REG ER PHONE #: [phone] Exam Date: 06/22/2018 1757 FAX #: Reason: CODE SEPSIS EXAMS: CPT CODE: [id number] CT HEAD/BRAIN W/O CONT 87033 REASON FOR EXAM: CODE SEPSIS EXAM ORDER DATE: 06/22/2018 5:19 PM Orderi zulma Hernandez: La Pedersen MD PROCEDURE: - [...] Fields RT(R),CT; CTDI: DLP: Trnscb Date/Time: (1800) Kelly Orig Print D/T: S: 06/22/2018 (1804) CTDI: DLP: PAGE 1 Signed Report CBC W/AUTO [id number] 17:54:00* Test Item Value Reference Range Interpretation [...] NRBC#) 0.00 K/mm3 0.0-0.1 N POC LACTIC [id number] 17:40:00* Test Item Value Reference Range Interpretation Comments POC LACTIC ACID (test code = POCLAC) 2.19 MMOL/L 0.4-2.2 N
--- NOTE | 2019-12-26 19:00 | NUR ---
bedside report given to Jose M FARAH
[2019-12-26] MEDS: SODIUM CHLORIDE 0.9% 1000ML 1,000 ML IV SCH (21:04)
--- NOTE | 2019-12-26 22:57 | NUR ---
Received report from ER nurse.
--- NOTE | 2019-12-26 23:15 | NUR ---
Patient arrived to floor via stretcher. Patient confused. AAOx0-1
[2019-12-27] VITALS (10 sets, daily range): BP systolic 147–167; BP diastolic 71–87
--- NOTE | 2019-12-27 | NUR ---
Cardiac enz. drawn x1 stick. Cardiac -x2 set. Continue monitor.
[2019-12-27 00:34] LABS: CREATINE KINASE MB 0.5 ng/mL (0-5.0)
[2019-12-27] MEDS: SODIUM CHLORIDE 0.9% 1000ML 1,000 ML IV SCH (00:44)
--- NOTE | 2019-12-27 04:41 | NUR ---
Patient resting quitly at this time with no c/o.
[2019-12-27] MEDS: MEROPENEM 1GM 100 ML IV SCH ×2 (05:00→16:57)
[2019-12-27 06:58] LABS: BASOPHILS # (AUTO) 0.1 (0.0-0.1); BASOPHILS % 0.4 % (0.0-1.0); EOSINOPHILS # (AUTO) 0.1 (0.0-0.4); EOSINOPHILS % 0.3 % (0.0-6.0); HEMATOCRIT 28.7 % (38.2-49.6); HEMOGLOBIN 9.3 g/dL (14.0-18.0); LYMPHOCYTES % 5.5 % (18.0-39.1); MEAN CORPUSCULAR HEMOGLOBIN 29.5 pg (28-32); MEAN CORPUSCULAR HGB CONC 32.4 g/dL (31-35); MEAN CORPUSCULAR VOLUME 91.1 fL (81-99); MONOCYTES # (AUTO) 0.7 (0.2-0.8); MONOCYTES % 3.7 % (4.4-11.3); NEUTROPHILS # (AUTO) 16.4 (2.1-6.9); NEUTROPHILS % 88.8 % (38.7-80.0); PLATELET COUNT 299 x10e3/uL (140-360); RED BLOOD COUNT 3.15 x10e6/uL (4.3-5.7); RED CELL DISTRIBUTION WIDTH 15.7 % (11.7-14.4)
[2019-12-27 07:11] LABS: ALANINE AMINOTRANSFERASE 7 IU/L (0-55); ALBUMIN 3.2 g/dL (3.5-5.0); ALBUMIN/GLOBULIN RATIO 0.9 (0.8-2.0); ALKALINE PHOSPHATASE 105 IU/L (40-150); ANION GAP 17.4 mmol/L (8-16); BLOOD UREA NITROGEN 37 mg/dL (7-26); BUN/CREATININE RATIO 38 (6-25); CALCIUM 8.6 mg/dL (8.4-10.2); CARBON DIOXIDE 18 mmol/L (22-29); CHLORIDE 113 mmol/L (98-107); CREATININE, SERUM 0.98 mg/dL (0.72-1.25); EST GLOMERULAR FILTRATION RATE > 60 ML/MIN (60-); POTASSIUM 4.4 mmol/L (3.5-5.1); SODIUM 144 mmol/L (136-145)
[2019-12-27 07:19] LABS: GLUCOSE 59 mg/dL (74-118)
[2019-12-27 07:32] LABS: CREATINE KINASE MB 1.3 ng/mL (0-5.0)
--- NOTE | 2019-12-27 13:21 | NUR ---
PT WITH ALTERED MENTAL STATUS, UNABLE TO PARTICIPATE IN DPA
[2019-12-27 15:27] LABS: CREATINE KINASE MB 1.4 ng/mL (0-5.0)
[2019-12-27] MEDS ORDERED: METFORMIN HCL500 MG PO (18:09)
[2019-12-27] MEDS ORDERED: ULTRAM50 MG PO (18:21)
[2019-12-27] MEDS ORDERED: ATORVASTATIN CA10 MG PO (18:21)
[2019-12-27] MEDS ORDERED: ASPIRIN81 MG PO (18:21)
[2019-12-27] MEDS ORDERED: METOPROLOL TAR100 MG PO (18:21)
[2019-12-27] MEDS ORDERED: METHENAMINE HIPP1 GM PO (18:21)
[2019-12-27] MEDS ORDERED: CLOPIDOGREL75 MG PO (18:21)
[2019-12-27] MEDS ORDERED: ARICEPT5 MG PO (18:21)
[2019-12-27] MEDS ORDERED: PEPCID20 MG PO (18:21)
[2019-12-27] MEDS ORDERED: SENNA LAX8.6 MG PO (18:21)
[2019-12-27] MEDS ORDERED: ONDANSETRON2 MG/1 ML PO (18:21)
[2019-12-27] MEDS ORDERED: LEVETIRACETAM500 MG PO (18:21)
[2019-12-27] MEDS ORDERED: NAMENDA10 MG PO (18:21)
[2019-12-27] MEDS ORDERED: VERAPAMIL ER120 MG PO (18:21)
[2019-12-27] MEDS ORDERED: QUETIAPINE FUMA25 MG PO (18:21)
[2019-12-27] MEDS ORDERED: QUETIAPINE FUMARATE 25 MG TAB PO PRN (18:30)
[2019-12-27] MEDS ORDERED: TRAMADOL HCL 50 MG TAB PO PRN (18:30)
[2019-12-27] MEDS: DONEPEZIL HCL 5 MG TAB PO SCH (21:12)
[2019-12-27] MEDS: SENNOSIDES 8.6 MG TAB PO SCH (21:12)
[2019-12-27] MEDS: ATORVASTATIN 10 MG TAB PO SCH (21:12)
[2019-12-28] VITALS (9 sets, daily range): BP systolic 125–188; BP diastolic 61–85
[2019-12-28] MEDS: MEROPENEM 1GM 100 ML IV SCH ×2 (05:10→16:27)
[2019-12-28 06:26] LABS: BASOPHILS # (AUTO) 0.1 (0.0-0.1); BASOPHILS % 0.6 % (0.0-1.0); EOSINOPHILS # (AUTO) 0.2 (0.0-0.4); EOSINOPHILS % 2.1 % (0.0-6.0); HEMATOCRIT 28.8 % (38.2-49.6); HEMOGLOBIN 9.2 g/dL (14.0-18.0); LYMPHOCYTES # (AUTO) 1.1 (1.0-3.2); LYMPHOCYTES % 9.8 % (18.0-39.1); MEAN CORPUSCULAR HEMOGLOBIN 28.3 pg (28-32); MEAN CORPUSCULAR HGB CONC 31.9 g/dL (31-35); MEAN CORPUSCULAR VOLUME 88.6 fL (81-99); MONOCYTES # (AUTO) 0.5 (0.2-0.8); MONOCYTES % 4.4 % (4.4-11.3); NEUTROPHILS # (AUTO) 9.1 (2.1-6.9); NEUTROPHILS % 80.8 % (38.7-80.0); PLATELET COUNT 313 x10e3/uL (140-360); RED BLOOD COUNT 3.25 x10e6/uL (4.3-5.7); RED CELL DISTRIBUTION WIDTH 15.3 % (11.7-14.4)
[2019-12-28 06:52] LABS: ANION GAP 13.6 mmol/L (8-16); BLOOD UREA NITROGEN 19 mg/dL (7-26); BUN/CREATININE RATIO 28 (6-25); CALCIUM 8.4 mg/dL (8.4-10.2); CARBON DIOXIDE 20 mmol/L (22-29); CHLORIDE 110 mmol/L (98-107); CREATININE, SERUM 0.67 mg/dL (0.72-1.25); EST GLOMERULAR FILTRATION RATE > 60 ML/MIN (60-); GLUCOSE 80 mg/dL (74-118); POTASSIUM 3.6 mmol/L (3.5-5.1); SODIUM 140 mmol/L (136-145)
[2019-12-28] MEDS: ASPIRIN 81 MG CHEW TAB PO SCH ×2 (08:06→16:00)
[2019-12-28] MEDS: METFORMIN HCL 500 MG TAB PO SCH ×2 (08:06→16:02)
[2019-12-28] MEDS: LEVETIRACETAM 500 MG TAB PO SCH ×2 (08:06→16:00)
[2019-12-28] MEDS: CLOPIDOGREL BISULFATE 75 MG TAB PO SCH (08:07)
[2019-12-28] MEDS: FAMOTIDINE 20 MG TAB PO SCH ×2 (08:07→16:00)
[2019-12-28] MEDS: MEMANTINE 10 MG TAB PO SCH ×2 (08:07→16:01)
[2019-12-28] MEDS: METOPROLOL TARTRATE 50 MG TAB PO SCH ×2 (08:30→16:28)
[2019-12-28] MEDS: VERAPAMIL HCL 80 MG TAB PO SCH ×2 (10:09→16:28)
[2019-12-28] MEDS ORDERED: SODIUM CHLORIDE 0.9% 250ML 250 ML ONE (15:23)
[2019-12-28] MEDS: DONEPEZIL HCL 5 MG TAB PO SCH (21:38)
[2019-12-28] MEDS: SENNOSIDES 8.6 MG TAB PO SCH (21:38)
[2019-12-28] MEDS: ATORVASTATIN 10 MG TAB PO SCH (21:38)
[2019-12-29] VITALS (8 sets, daily range): BP systolic 117–162; BP diastolic 52–92
[2019-12-29] MEDS: MEROPENEM 1GM 100 ML IV SCH ×2 (05:37→16:55)
--- NOTE | 2019-12-29 07:00 | NUR ---
RECEIVED BEDSIDE SHIFT REPORT WITH OFF GOING NIGHT NURSE. PATIENT IN STABLE CONDITION, NO S/S OF DISTRESS NOTED. NO PAIN VOICED. RESPIRATIONS EVEN AND NON LABORED. RESTING QUIETLY IN BED AT THIS TIME. TELEMETRY APPLIED. IV SITES ASYMPTOMATIC AND PATENT, TRANSPARENT DRESSING C/D/I. WOUNDS NOTED TO THE BOTTOM DRESSING APPLIED C/D/I. BED IN LOWEST POSITION AND LOCKED. CALL LIGHT WITHIN REACH. Addendum: 12/29/19 at 0747 by Michell Davila RN BED ALARM APPLIED. SIDE RAILS X 2.
[2019-12-29] MEDS: FAMOTIDINE 20 MG TAB PO SCH ×2 (07:30→16:55)
[2019-12-29] MEDS: METFORMIN HCL 500 MG TAB PO SCH ×2 (08:00→16:55)
[2019-12-29] MEDS: ASPIRIN 81 MG CHEW TAB PO SCH ×2 (09:01→16:55)
[2019-12-29] MEDS: VERAPAMIL HCL 80 MG TAB PO SCH ×2 (09:02→16:55)
[2019-12-29] MEDS: LEVETIRACETAM 500 MG TAB PO SCH ×2 (09:02→16:55)
[2019-12-29] MEDS: METOPROLOL TARTRATE 50 MG TAB PO SCH ×2 (09:02→16:56)
[2019-12-29] MEDS: CLOPIDOGREL BISULFATE 75 MG TAB PO SCH (09:03)
[2019-12-29] MEDS: MEMANTINE 10 MG TAB PO SCH ×2 (09:03→16:56)
--- NOTE | 2019-12-29 09:16 | NUR ---
SUPRAPUBIC CATHETER CARE COMPLETED.
--- NOTE | 2019-12-29 19:23 | NUR ---
COMPLETED BEDSIDE SHIFT REPORT AND ROUNDING WITH THE ONCOMING NIGHT NURSE. PATIENT IN STABLE CONDITION, NO S/S OF DISTRESS NOTED. TELEMETRY APPLIED. IV SITE ASYMPTOMATIC AND PATENT, TRANSPARENT DRESSING C/D/I. SUPRAPUBIC CATHETER APPLIED AND PATENT. FOAM DRESSING APPLIED TO THE SACRAL AREA C/D/I. BED IN LOWEST POSITION AND LOCKED, SIDE RAILS X 2. CALL LIGHT WITHIN REACH.
[2019-12-29] MEDS: DONEPEZIL HCL 5 MG TAB PO SCH (20:39)
[2019-12-29] MEDS: SENNOSIDES 8.6 MG TAB PO SCH (20:39)
[2019-12-29] MEDS: ATORVASTATIN 10 MG TAB PO SCH (20:39)
--- NOTE | 2019-12-29 21:35 | NUR ---
Received call from telemetry informing me that pt's heart rate is 43. Pt alert and awake. Denies any pain or discomfort. Paged Dr. Coelho to inform of change in pt's heart rate. Awaiting call back.
--- NOTE | 2019-12-29 22:51 | NUR ---
EKG complete. A-Fib with slow ventricular response, heart rate 53. No call back at this time. Second page placed. Awaiting call back from .
[2019-12-30] VITALS (9 sets, daily range): BP systolic 130–181; BP diastolic 58–84
--- NOTE | 2019-12-30 00:19 | NUR ---
Received call back from Dr. Coelho. Informed of EKG that reads A-Fib and the low heart rate readings. New orders received to decrease Lopressor to 50 mg bid. Will continue to monitor pt.
[2019-12-30] MEDS: MEROPENEM 1GM 100 ML IV SCH ×2 (05:56→16:56)
--- NOTE | 2019-12-30 07:00 | NUR ---
BEDSIDE SHIFT REPORT RECEIVED FROM THE SUPERVISOR OF GUIDANCE AND TESTING RN. EDUCATED PT ABOUT FALL PRECAUTIONS. PT VERBALIZED UNDERSTANDING. CALL LIGHT WITH IN EASY REACH. INSTRUCTED PT TO USE CALL LIGHT FOR ALL THE NEEDS. BED IS LOW AND LOCKED. SIDE RAILS X2. BED ALARM IS ON. PT DENIES NEEDS AT THIS TIME.
[2019-12-30] MEDS: FAMOTIDINE 20 MG TAB PO SCH ×2 (08:30→16:56)
[2019-12-30] MEDS: METFORMIN HCL 500 MG TAB PO SCH ×2 (09:00→16:57)
[2019-12-30] MEDS: ASPIRIN 81 MG CHEW TAB PO SCH ×2 (09:58→16:56)
[2019-12-30] MEDS: METOPROLOL TARTRATE 50 MG TAB PO SCH ×2 (09:59→16:57)
[2019-12-30] MEDS: MEMANTINE 10 MG TAB PO SCH ×2 (09:59→16:57)
[2019-12-30] MEDS: LEVETIRACETAM 500 MG TAB PO SCH ×2 (09:59→16:57)
[2019-12-30] MEDS: CLOPIDOGREL BISULFATE 75 MG TAB PO SCH (09:59)
[2019-12-30] MEDS: VERAPAMIL HCL 80 MG TAB PO SCH ×2 (09:59→16:57)
--- NOTE | 2019-12-30 14:08 | NUR ---
WOUND CARE CONSULT 79 YO FEMALE HX OFAMS,ANEURISM,UTI DHAVAL 14 0N MODERATE PUP STATUS AND INTERVENTIONS AND ALTERNATING PRESSURE MATTRESS LABS: WBC- 11.28 HGB- 9.2 GLUCOSE- PEND SKIN ASSESSMENT COMPLETE PATIENT PRESENTS WITH SACRAL STAGE 2 ULCERATION 10CM X13CM X0.1CM RIGHT POSTERIOR BKA UNSTAGEABLE ULCERATION 2CM X2CM SLOUGH COVERED WOUND BASE RECOMMENDATIONS: NURSING TO CONTINUE TO MONITOR PATIENT AND KEEP SKIN CLEAN AND FREE FROM LOOSE STOOL OR IRRITATING MOISTURE AND CONTINUE TO FOLLOW MODERATE PUP INTERVENTIONS NURSING TO CONTINUE TO GET PATIENT OUT OF BED FOR MEALS AND MUCH TOLERATED NURSING TO CLEAN SACRAL STAGE 2 ULCERATION WITH NORMAL SALINE DAILY AND PURACOL (COLLAGEN) TO WOUND BASE .. AND COVER WITH ALLEVYN FOAM DRESSING NURSING TO CLEAN RIGHT BKA UNSTAGEABLE ULCERATION WITH NORMAL SALINE DAILY AND APPLY SANTYL OINTMENT TO SLOUGH COVERED WOUND BASE .. AND APPLY 4X4 JADE COVER WITH ALLEVYN FOAM DRESSING Addendum: 12/30/19 at 1418 by Nathan King RN Amended: Links added.
--- NOTE | 2019-12-30 19:00 | NUR ---
BEDSIDE SHIFT REPORT GIVEN TO THE ELECTRO OPTICS ENGINEER RN. PT DENIED FURTHER NEEDS.
[2019-12-30] MEDS: DONEPEZIL HCL 5 MG TAB PO SCH (20:56)
[2019-12-30] MEDS: ATORVASTATIN 10 MG TAB PO SCH (20:56)
[2019-12-30] MEDS: SENNOSIDES 8.6 MG TAB PO SCH (20:57)
[2019-12-31] VITALS (8 sets, daily range): BP systolic 135–192; BP diastolic 61–99
[2019-12-31] MEDS: ONDANSETRON HCL 4 MG ORAL DISINTEGRATING TAB PO PRN ×3 (00:19→21:54)
[2019-12-31] MEDS: MEROPENEM 1GM 100 ML IV SCH ×2 (05:44→16:19)
--- NOTE | 2019-12-31 06:48 | NUR ---
Received report from senior web engineer nurse. Pt is resting in bed. No distress noted. Will continue to monitor pt on unit.
--- NOTE | 2019-12-31 07:20 | NUR ---
Bedside report given to dayshift RN. Pt alert and awake. No further needs at this time. Care transferred.
[2019-12-31] MEDS: FAMOTIDINE 20 MG TAB PO SCH ×2 (09:00→15:26)
[2019-12-31] MEDS: METFORMIN HCL 500 MG TAB PO SCH ×2 (09:00→16:20)
[2019-12-31] MEDS: ASPIRIN 81 MG CHEW TAB PO SCH ×2 (09:00→16:20)
[2019-12-31] MEDS: LEVETIRACETAM 500 MG TAB PO SCH ×2 (09:02→16:20)
[2019-12-31] MEDS: VERAPAMIL HCL 80 MG TAB PO SCH ×2 (09:02→16:35)
[2019-12-31] MEDS: MEMANTINE 10 MG TAB PO SCH ×2 (09:03→16:20)
[2019-12-31] MEDS: METOPROLOL TARTRATE 50 MG TAB PO SCH ×2 (09:03→16:35)
[2019-12-31] MEDS: COLLAGENASE 5 GM TUBE TP SCH (09:03)
[2019-12-31] MEDS: CLOPIDOGREL BISULFATE 75 MG TAB PO SCH (09:03)
[2019-12-31] MEDS: FLUCONAZOLE 100 MG TAB PO SCH (13:32)
[2019-12-31] MEDS: GENTAMICIN 80MG/NS 100 ML 100 ML IV SCH (13:32)
--- NOTE | 2019-12-31 14:03 | NUR ---
SPOKE WITH SISTER KOTA [phone] OK TO RETURN PT TO THE [facility], PT CONFUSED UNABLE TO MAKE DECISION FOR PLAN AT THIS TIME
--- NOTE | 2019-12-31 19:26 | NUR ---
Report given to night nurse, updated nurse on pt status
[2019-12-31] MEDS: ATORVASTATIN 10 MG TAB PO SCH (21:54)
[2019-12-31] MEDS: DONEPEZIL HCL 5 MG TAB PO SCH (21:54)
[2019-12-31] MEDS: SENNOSIDES 8.6 MG TAB PO SCH (21:54)
[2020-01-01] VITALS (8 sets, daily range): BP systolic 131–189; BP diastolic 62–78
[2020-01-01] MEDS: GENTAMICIN 80MG/NS 100 ML 100 ML IV SCH ×2 (01:14→11:50)
[2020-01-01] MEDS: MEROPENEM 1GM 100 ML IV SCH ×2 (04:39→17:35)
--- NOTE | 2020-01-01 07:12 | NUR ---
Bedside report given to dayshift RN. Pt alert and awake. No needs at this time. Care transferred.
[2020-01-01] MEDS: FAMOTIDINE 20 MG TAB PO SCH ×2 (07:42→16:30)
[2020-01-01] MEDS: METFORMIN HCL 500 MG TAB PO SCH ×2 (07:51→17:36)
[2020-01-01] MEDS: ASPIRIN 81 MG CHEW TAB PO SCH ×2 (08:47→17:35)
[2020-01-01] MEDS: LEVETIRACETAM 500 MG TAB PO SCH ×2 (08:47→17:36)
[2020-01-01] MEDS: FLUCONAZOLE 100 MG TAB PO SCH (08:47)
[2020-01-01] MEDS: VERAPAMIL HCL 80 MG TAB PO SCH ×2 (08:47→17:36)
[2020-01-01] MEDS: COLLAGENASE 5 GM TUBE TP SCH (08:48)
[2020-01-01] MEDS: CLOPIDOGREL BISULFATE 75 MG TAB PO SCH (08:48)
[2020-01-01] MEDS: MEMANTINE 10 MG TAB PO SCH ×2 (08:48→17:37)
[2020-01-01] MEDS: METOPROLOL TARTRATE 50 MG TAB PO SCH ×2 (08:48→17:37)
--- NOTE | 2020-01-01 14:03 | NUR ---
CALLED FACILITY PENDING AUTH
--- NOTE | 2020-01-01 17:21 | NUR ---
Nutrition Intervention Note RD Recommendation(s) for Physician: -Continue current diet as ordered -Recommend Zachariah BID as well as zinc and vitamin C to promote wound healing -If PO intake is <50% of meals, offer Glucerna nutrition supplement Plan of Care: RD following, monitoring for tolerance and adequacy Nutrition reason for involvement: length of stay and pressure ulcer RD Assessment (01/01/20) Pt is a 79 year old male admitted with AMS, anemia, and UTI. Pt was sleeping at time of visit. It is noted that pt has been consuming 50-85% of meals during admission. There are no previous weights in chart. Wound care note indicates that pt has a sacral stage 2 pressure ulcer and right posterior BKA unstageable ulceration. Recommend Zachariah BID as well as zinc and vitamin C to promote wound healing. Will continue to monitor. Principal Problems/Diagnoses: AMS, anemia, and UTI PMH: no H/P in [email or web address] GI: last recorded BM 12/31, soft/non-tender abdomen Skin: sacral stage 2 pressure ulcer and right posterior BKA unstageable ulceration (wound care note 12/29) Labs: (12/27) Na 140, K 3.6, BUN 19, Cr 0.67, Glu 80, Ca 8.4 Meds: metoprolol, metformin, antibiotic, zofran, lipitor Ht:67 in Wt: 132.31 lbs BMI: 20.7 kg/m2 IBW: 148 lbs Malnutrition Evaluation (01/01/20) The patient does not meet criteria for a specified degree of malnutrition at this time. Unable to obtain nutrition history from pt at this time. Will re-evaluate at follow-up as appropriate. Nutrition Prescription (Diet Order): 1800 ADA Estimated Nutritional Needs: 4236-3803 calories/day (25-30 kcal/kg CBW) Weight used: 132.31 lbs 60-90 g protein/day (1-1.5 g pro/kg CBW) Weight used: 132.31 lbs Diet Adequacy: pt has been consuming 50-85% of meals during admission Tolerance: Tolerating PO Diet Education Needs Assessment: RD is available for diet education as needed Nutrition Care Level: low Nutrition Diagnosis: Increased nutrient needs related to increased demand for protein and kcal as evidenced by pressure ulcers. Goal: Patient will meet 75-100% of estimated needs by follow up Progress: N/A Interventions: -carbohydrate- modified diet, Commercial beverage, Multivitamin/mineral supplement therapy Monitoring/Evaluation: -Total energy intake, Total protein intake, Modified diet, Liquid supplement, Weight change Signed: Nicole Busby RD, LD
--- NOTE | 2020-01-01 19:32 | NUR ---
SHIFT REPORT GIVEN TO HORSE TREKKING GUIDE NURSE, PT IS STABLE NO DISTRESS NOTED
[2020-01-01] MEDS: ATORVASTATIN 10 MG TAB PO SCH (21:49)
[2020-01-01] MEDS: DONEPEZIL HCL 5 MG TAB PO SCH (21:49)
[2020-01-01] MEDS: SENNOSIDES 8.6 MG TAB PO SCH (21:50)
[2020-01-02 00:30] VITALS: BP 143/78
[2020-01-02] MEDS: GENTAMICIN 80MG/NS 100 ML 100 ML IV SCH (00:54)
[2020-01-02 04:00] VITALS: BP 145/81
[2020-01-02] MEDS: MEROPENEM 1GM 100 ML IV SCH (05:35)
--- NOTE | 2020-01-02 07:33 | NUR ---
Bedside report given to dayshift RN. Pt alert, awake, and stable. Care transferred.
--- NOTE | 2020-01-02 07:34 | NUR ---
CHANGE OF SHIFT REPORT RECEIVED FROM PM NURSE. PT IN STABLE CONDITION.
[2020-01-02 08:00] VITALS: BP_SYST 145; BP_SYST 174; BP_DIAS 76; BP_DIAS 81
--- NOTE | 2020-01-02 09:02 | NUR ---
DETENTION FACILITY DISCHARGE INFORMATION PATIENT HAS BEEN ACCEPTED TO: NAME: [facility] ADDRESS: [id number] [facility] ACCEPTING [employer]NA[employer] OPERATOR: SHAGGY LINDQUIST MD: LENNIE ROOM: 100 NURSE CALL REPORT TO: [phone] IMM SIGNED AND OBTAINED (if applicable): IMM THE FOLLOWING DOCUMENTS MUST ACCOMPANY PATIENT FOR TRANSFER: COPIED CHART: PACKET
[2020-01-02] MEDS: METFORMIN HCL 500 MG TAB PO SCH (09:20)
[2020-01-02] MEDS: FAMOTIDINE 20 MG TAB PO SCH (09:20)
[2020-01-02] MEDS: VERAPAMIL HCL 80 MG TAB PO SCH (09:21)
[2020-01-02] MEDS: ASPIRIN 81 MG CHEW TAB PO SCH (09:21)
[2020-01-02] MEDS: METOPROLOL TARTRATE 50 MG TAB PO SCH (09:22)
[2020-01-02] MEDS: LEVETIRACETAM 500 MG TAB PO SCH (09:22)
[2020-01-02] MEDS: FLUCONAZOLE 100 MG TAB PO SCH (09:22)
[2020-01-02] MEDS: CLOPIDOGREL BISULFATE 75 MG TAB PO SCH (09:23)
[2020-01-02] MEDS: MEMANTINE 10 MG TAB PO SCH (09:23)
[2020-01-02] MEDS: COLLAGENASE 5 GM TUBE TP SCH (09:40)
[2020-01-02 12:00] VITALS: BP 168/83
== END 2020-01-02 12:49 | DRG 698 ==
LOC: ER 13:40 → ERHOLD 17:47 → MED/SURG3 23:00
DX: T83.518A Infection and inflammatory reaction due to other urinary catheter, initial encounter (principal); A41.9 Sepsis, unspecified organism; G93.41 Metabolic encephalopathy; N39.0 Urinary tract infection, site not specified; L89.152 Pressure ulcer of sacral region, stage 2; Z11.59 Encounter for screening for other viral diseases
CPT/HCPCS: 36415; 51700; 70450; 71045; 72125; 80048; 80053; 81001; 82140; 82550; 82553; 82948; 83605; 83735; 83880; 84484; 85025; 85610; 85730; 86850; 86900; 86920; 87040; 87086; 87186; 93005; 96361; 99251; 99285; J1450; J1580; J7030; J7050; P9016; Q0162; U0002

== ENCOUNTER → 2024-05-02 | Day surgery (SDC) | payer MEDICARE ==
[~2024-05-02] MED LIST: ACETAMINOPHEN325 M1 PO; AMOX TR-K CLV1 EAC1 PO; ARICEPT5 MG PO; ASPIRIN81 MG PO; ATORVASTATIN CA10 MG PO; CEPHALEXIN500 MG PO; CLOPIDOGREL75 MG PO; EPHEDRINE SULFATE INJ 50 MG/ML VIAL ONE; FENTANYL CITRATE/PF 100MCG/2 ML INJ ONE; LEVETIRACETAM500 MG PO; LIDOCAINE HCL 2% LOCAL INJ 5 ML SDV VIAL INJ ONE; LISINOPRIL20 MG PO; METFORMIN HCL500 MG PO; METHENAMINE HIPP1 GM PO; METOPROLOL TAR100 MG PO; NAMENDA10 MG PO; ONDANSETRON HCL INJ 2MG/ML 2ML 2 MG/ML VIAL ONE; ONDANSETRON ODT4 MG PO; ONDANSETRON2 MG/1 ML PO; PEPCID20 MG PO; PROPOFOL IV EMULSION 10 MG/ML 20 ML VIAL ONE; QUETIAPINE FUMA25 MG PO; SENNA LAX8.6 MG PO; SEVOFLURANE INHAL SOLN 250 ML PEN BTL ONE; TRAMADOL HCL 50 MG TAB ONE; ULTRAM50 MG PO; VERAPAMIL ER120 MG PO
[2024-05-02 06:48] LABS: BASOPHILS % 0.7 % (0.0-1.0); EOSINOPHILS # (AUTO) 0.2 (0.0-0.4); EOSINOPHILS % 2.8 % (0.0-6.0); HEMATOCRIT 38.5 % (38.2-49.6); HEMOGLOBIN 11.2 g/dL (14.0-18.0); LYMPHOCYTES # (AUTO) 0.9 (1.0-3.2); LYMPHOCYTES % 16.9 % (18.0-39.1); MEAN CORPUSCULAR HEMOGLOBIN 27.7 pg (28-32); MEAN CORPUSCULAR HGB CONC 29.1 g/dL (31-35); MEAN CORPUSCULAR VOLUME 95.3 fL (81-99); MONOCYTES # (AUTO) 0.3 (0.2-0.8); MONOCYTES % 5.6 % (4.4-11.3); NEUTROPHILS % 73.4 % (38.7-80.0); PLATELET COUNT 352 x10e3/uL (140-360); RED BLOOD COUNT 4.04 x10e6/uL (4.3-5.7); RED CELL DISTRIBUTION WIDTH 13.8 % (11.7-14.4); WHITE BLOOD COUNT 5.38 x10e3/uL (4.8-10.8)
[2024-05-02 07:03] LABS: CALCIUM 9.4 mg/dL (8.4-10.2); CREATININE, SERUM 1.2 mg/dL (0.72-1.25); URIC ACID 4.7 mg/dL (4.8-8.0)
[2024-05-02] MEDS: CEFTRIAXONE 1 GM VIAL ONE (07:35)
[2024-05-02] MEDS: LACTATED RINGER'S 1,000 ML ONE (07:35)
[2024-05-02] MEDS: DEXTROSE 5% 250ML 250 ML IV ONE (07:37)
[2024-05-02] MEDS: LABETALOL HCL 5 MG/ML 20ML VIAL IV ONE (11:05)
[2024-05-02] MEDS: PHENAZOPYRIDINE HCL 100 MG TAB ONE (11:06)
[2024-05-02] MEDS: HYDRALAZINE HCL 20 MG/ML VIAL ONE (11:32)
[2024-05-02 11:50] VITALS: TEMP 97.8
[2024-05-02 12:10] VITALS: BP 161/50; PULSE 58; RESP 18; O2SAT 100
[2024-05-02] MEDS: TRAMADOL HCL 50 MG TAB PO ONE (12:20)
== END | disposition home or self-care (01) ==
LOC: OR 05:46
PROVIDERS: ATTEND Urology
DX: N20.0 Calculus of kidney (principal); R33.8 Other retention of urine; N39.0 Urinary tract infection, site not specified; Z43.5 Encounter for attention to cystostomy; N32.89 Other specified disorders of bladder; Z96.0 Presence of urogenital implants; E11.9 Type 2 diabetes mellitus without complications; I25.810 Atherosclerosis of coronary artery bypass graft(s) without angina pectoris; I10 Essential (primary) hypertension; I25.2 Old myocardial infarction; G40.909 Epilepsy, unspecified, not intractable, without status epilepticus; G30.9 Alzheimer's disease, unspecified; F02.80 Dementia in other diseases classified elsewhere, unspecified severity, without behavioral disturbance, psychotic disturbance, mood disturbance, and anxiety; Z88.6 Allergy status to analgesic agent; Z79.02 Long term (current) use of antithrombotics/antiplatelets; Z79.82 Long term (current) use of aspirin; Z79.84 Long term (current) use of oral hypoglycemic drugs; Z79.899 Other long term (current) drug therapy; Z95.1 Presence of aortocoronary bypass graft
CPT/HCPCS: 36415; 50590; 51705; 71046; 74018; 80048; 82948; 84550; 85025; 87086; 87186; 93005; J0360; J0696; J2003; J2405; J2704; J3010; J3490; J7121